=== PATIENT | female | born 1940 | race African-American/Black ===

== ENCOUNTER 2016-08-18 18:07 | Emergency (ER) | payer MEDICARE ==
--- NOTE | 2016-08-18 19:42 | ER Document Report ---
ED General - General Chief Complaint: Other Stated Complaint: BLEEDING Notes: Patient is a 75-year-old female with past medical history of chronic kidney disease with dialysis dependence who has a left AV fistula who presents with bleeding from the fistula. This started abruptly. States that this started just prior to arrival and has stopped after direct pressure was applied by EMS. Denies history of similar bleeding in the past. She did have dialysis earlier this morning. She does take aspirin but denies any additional anticoagulant use. Denies any pain. Nothing was noted to worsen the bleeding. TRAVEL OUTSIDE OF THE [place] IN LAST 30 DAYS: No Past Medical History - General Information source: Patient - Social History Smoking Status: Never Smoker Frequency of alcohol use: None Drug Abuse: None Lives with: Family Family History: Reviewed & Not Pertinent - Past Medical History Cardiac Medical History: Reports: Hx Hypercholesterolemia, Hx Hypertension Denies: Hx Coronary Artery Disease, Hx Heart Attack Pulmonary Medical History: Denies: Hx Asthma, Hx Bronchitis, Hx COPD, Hx Pneumonia, Hx Tuberculosis Neurological Medical History: Reports: Hx Cerebrovascular Accident - 2010. Denies: Hx Seizures Endocrine Medical History: Reports: Hx Diabetes Mellitus Type 2, Hx Hypothyroidism Renal/ Medical History: Reports: Hx End Stage Renal Disease Musculoskeltal Medical History: Reports Hx Arthritis Past Surgical History: Reports: Hx Cholecystectomy. Denies: Hx Pacemaker - Immunizations Hx Diphtheria, Pertussis, Tetanus Vaccination: No Hx Pneumococcal Vaccination: 04/19/12 Review of Systems - Review of Systems Notes: Constitutional: Negative for fever. HENT: Negative for sore throat. Eyes: Negative for visual changes. Cardiovascular: Negative for chest pain. Respiratory: Negative for shortness of breath. Gastrointestinal: Negative for abdominal pain, vomiting or diarrhea. Genitourinary: Negative for dysuria. Musculoskeletal: Negative for back pain. Skin: Positive for bleeding from left AV fistula Neurological: Negative for headaches, weakness or numbness. 10 point ROS negative except as marked above and in HPI. Physical Exam - Vital signs Vitals: Temp Pulse Resp BP Pulse Ox 97.7 F 67 18 165/59 H 100 08/18/16 18:23 08/18/16 18:23 08/18/16 18:23 08/18/16 18:23 08/18/16 18:23 Interpretation: Hypertensive Notes: PHYSICAL EXAMINATION: GENERAL: Well-appearing, well-nourished and in no acute distress. HEAD: Atraumatic, normocephalic. EYES: sclera anicteric, conjunctiva are normal. ENT: Moist mucous membranes. NECK: Normal range of motion LUNGS: Normal work of breathing HEART: 2+ radial pulses bilaterally EXTREMITIES: no pitting or edema. No cyanosis. Left AV fistula without any active bleeding. Palpable thrill. NEUROLOGICAL: No focal neurological deficits. Moves all extremities spontaneously and on command. PSYCH: Normal mood, normal affect. SKIN: Warm, Dry, normal turgor, no rashes or lesions noted. Course - Re-evaluation Re-evalutation: 08/18/16 19:42 Patient presents with a moderate amount of bleeding from her left AV fistula has stopped. Dressing removed at time of arrival diabetic place by EMS and there is no active bleeding. Vitals within normal limits exception of mild hypertension. Will check a hemoglobin and if this is within patient's normal range and for discharge home. 08/18/16 20:14 Hemoglobin is within patient's normal limits. She continues to be without any bleeding. At this time will discharge with return precautions and follow-up recommendations. Verbal discharge instructions given a the bedside and opportunity for questions given. Medication warnings reviewed. Patient is in agreement with this plan and has verbalized understanding of return precautions and the need for primary care follow-up in the next 24-72 hours. - Vital Signs Vital signs: Temp Pulse Resp BP Pulse Ox 98.2 F 67 24 H 154/57 H 99 08/18/16 20:54 08/18/16 18:23 08/18/16 20:53 08/18/16 20:54 08/18/16 20:53 - Laboratory Result Diagrams: 08/18/16 20:00 Laboratory results interpreted by me: 08/18/16 20:00 RBC 2.99 L Hgb 10.1 L Hct 30.6 L MCV 102 H MCH 33.6 H RDW 16.6 H Discharge - Discharge Clinical Impression: Hemorrhage of arteriovenous fistula Qualifiers: Encounter type: initial encounter Qualified Code(s): T82.838A - Hemorrhage due to vascular prosthetic devices, implants and grafts, initial encounter Condition: Good Disposition: HOME, SELF-CARE Additional Instructions: Please follow-up closely with your tele rn and the vascular surgeon who placed your fistula in the next 2-3 days. Return to the emergency department immediately if your recurrence of the bleeding, pass out, become lightheaded, or have any other symptoms that are concerning to you. Your blood counts today are similar to your prior levels. Forms: Elevated Blood Pressure
[2016-08-18 20:09] LABS: HEMATOCRIT 30.6 % (36.0-47.0); HEMOGLOBIN 10.1 g/dL (12.0-15.5); HGB HCT DIFFERENCE -0.3; MEAN CORPUSCULAR HEMOGLOBIN 33.6 pg (27.0-33.4); MEAN CORPUSCULAR HGB CONC 32.9 g/dL (32.0-36.0); MEAN CORPUSCULAR VOLUME 102 fl (80-97); RED BLOOD COUNT 2.99 10^6/uL (3.72-5.28); RED CELL DISTRIBUTION WIDTH 16.6 % (11.5-14.0); WHITE BLOOD COUNT 6.7 10^3/uL (4.0-10.5)
[2016-08-18 20:57] VITALS: BP 154/57
== END 2016-08-18 20:54 | disposition home or self-care (01) ==
LOC: ER 18:07
DX: T82.838A Hemorrhage due to vascular prosthetic devices, implants and grafts, initial encounter (principal); Y73.8 Miscellaneous gastroenterology and urology devices associated with adverse incidents, not elsewhere classified; I12.0 Hypertensive chronic kidney disease with stage 5 chronic kidney disease or end stage renal disease; E11.22 Type 2 diabetes mellitus with diabetic chronic kidney disease; N18.6 End stage renal disease; Z99.2 Dependence on renal dialysis; Z98.890 Other specified postprocedural states; Z79.82 Long term (current) use of aspirin; Z86.73 Personal history of transient ischemic attack (TIA), and cerebral infarction without residual deficits
CPT/HCPCS: 36415; 85027; 99284

== ENCOUNTER 2017-01-04 09:07 | Day surgery (SDC) | payer MEDICARE ==
[~2017-01-04 09:07] MED LIST: LIDOCAINE 0.5% INJ-PF (5 MG/ML) 50 ML SDV ONE
[2017-01-04 09:58] LABS: HEMATOCRIT 37.3 % (36.0-47.0); HEMOGLOBIN 12.3 g/dL (12.0-15.5); HGB HCT DIFFERENCE -0.4; MEAN CORPUSCULAR HGB CONC 32.9 g/dL (32.0-36.0); MEAN CORPUSCULAR VOLUME 103 fl (80-97); RED BLOOD COUNT 3.61 10^6/uL (3.72-5.28); WHITE BLOOD COUNT 3.6 10^3/uL (4.0-10.5)
[2017-01-04] MEDS ORDERED: PROPOFOL INJ 200 MG/20 ML VIAL IV ONE (10:01)
[2017-01-04] MEDS ORDERED: FENTANYL CITRATE INJ/PF 100 MCG/2 ML AMPUL ONE (10:01)
[2017-01-04] MEDS ORDERED: MIDAZOLAM 2 MG/2 ML INJ ONE (10:01)
[2017-01-04 10:21] LABS: ANION GAP 15 (5-19); BLOOD UREA NITROGEN 18 mg/dL (7-20); CALCIUM 9.1 mg/dL (8.4-10.2); CARBON DIOXIDE 29 mmol/L (22-30); CHLORIDE 96 mmol/L (98-107); CREATININE RESULT 7.38 mg/dL (0.52-1.25); GLUCOSE 86 mg/dL (75-110); POTASSIUM 5.1 mmol/L (3.6-5.0)
[2017-01-04] MEDS ORDERED: ONDANSETRON HCL INJ/PF 4 MG/2 ML SDV IV PRN (11:57)
[2017-01-04] MEDS ORDERED: DIPHENHYDRAMINE HCL 50 MG/ML VIAL IV PRN (11:57)
[2017-01-04] MEDS ORDERED: FENTANYL CITRATE INJ/PF 100 MCG/2 ML AMPUL IV PRN (11:57)
[2017-01-04] MEDS ORDERED: MEPERIDINE HCL/PF INJ 25 MG/1 ML DISP.SYRIN IV PRN (11:57)
[2017-01-04] MEDS ORDERED: PROMETHAZINE HCL INJ 25 MG/1 ML VIAL IV PRN (11:57)
--- NOTE | 2017-01-04 12:38 | PDOC DISCHARGE SUMMARY ---
Discharge Summary (SDC) - Discharge Final Diagnosis: 1 malfunctioning arteriovenous fistula, left transposed basilic. 2. End-stage renal disease on hemodialysis. 3. Hypertension. 4. Multiple comorbidities. Date of Surgery: 01/04/17 Discharge Date: 01/04/17 Condition: Fair Treatment or Instructions: Discharge home [after recovery per ASU criteria]. Diet , [renal],as tolerated, when fully awake advance as tolerated. Activities within moderation encouraged. Follow up in my office by appointment in about [1 month]. Call for appointment. Leave wounds [covered], [keep clean and dry, until hemodialysis. Hold of on school/work [until evaluation in office]. May shower [in 48 hrs], [try to keep operated area as dry as possible]. Discharge Diet: Other (Comments) - Renal Report the Following to Your Physician Immediately: Shortness of Breath, Unusual Bleeding
[2017-01-04 14:54] VITALS: BP 181/68
--- NOTE | 2017-01-04 15:22 | RADIOLOGY REPORT (SQ) ---
EXAM DESCRIPTION: SHOULDER LEFT 2 OR MORE VIEWS; NO CHG FLUORO COMPLETED DATE/TIME: 01/04/2017 2:02 pm REASON FOR STUDY: PLASTY T82.858A STENOSIS OF OTHER VASCULAR PROSTH DEV/GRFT, INIT COMPARISON: 06/15/2016 FLUOROSCOPY TIME: 3.7 minutes 16 series of digital images saved to PACS. TECHNIQUE: Intra-operative images acquired during surgical procedure to evaluate progress. NUMBER OF IMAGES: Cine fluoroscopic images. LIMITATIONS: None. FINDINGS: Imaging in fluoroscopy during left upper extremity dialysis access evaluation and plasty b y Dr. Gomez . Please refer to the operative report for further details. IMPRESSION: INTRA PROCEDURAL IMAGING ABOVE . COMMENT: Quality ID [id number]: Final reports for procedures using fluoroscopy that document radiation exp osure indices, or exposure time and number of fluorographic images (if radiation exposure indices are not available) Please consult full operative report of the attending physician for description of the procedure. TECHNICAL DOCUMENTATION: JOB ID: [id number] [employer]- All Rights Reserved
--- NOTE | 2017-01-04 23:43 | EKG REPORT ---
SEVERITY:- NORMAL ECG - SINUS RHYTHM : Confirmed by: Kindra Cai 04-Jan-2017 23:43:27
--- NOTE | 2017-01-19 13:19 | Operative Report ---
Operative Report DATE OF SURGERY: 01/04/17 PREOPERATIVE DIAGNOSIS: 1 malfunctioning arteriovenous fistula, left transposed basilic. 2. End-stage renal disease on hemodialysis. 3. Hypertension. 4. Multiple comorbidities. POSTOPERATIVE DIAGNOSIS: 1 malfunctioning arteriovenous fistula, left transposed basilic. 2. End-stage renal disease on hemodialysis. 3. Hypertension. 4. Multiple comorbidities. OPERATION: 1. Needle access into the fistula. 2. Central vein, subclavian angioplasty. 3. Arteriovenous fistula angioplasty. 4. Angiogram interpretation. SURGEON: OMKAR QUEVEDO SOFTWARE DATABASE ARCHITECT: None ANESTHESIA: LMAC TISSUE REMOVED OR ALTERED: Not applicable COMPLICATIONS: None ESTIMATED BLOOD LOSS: 5 mL. INTRAOPERATIVE FINDINGS: Well founded left arm transposed basilic vein fistula. Somewhat ectatic. Very firm initially suggestive of cephalad stenosis. 2 stenoses encountered one in the mid to lateral subclavian vein estimated to be 80% of the adjacent lumen. Also at about 30 cm at the swing segment. This was about 80% of the adjacent lumen and there remains a moderate 10-20% stenosis. The fistula is somewhat soft and suggestive of improvement in cephalad stenosis. In response to current intervention may need a larger balloon such as a 10 mm or, consideration of a stent. PROCEDURE: PROCEDURE: After verifying the procedure and having obtained informed consent, the patient's left arm was prepared with Chlorhexidine and draped out with sterile linen. Local anesthesia infiltrated. Percutaneous access into the fistula ,[ antegrade], obtained about [2 cm] from the arteriovenous anastomosis using a micro puncture needle followed by micro puncture wire and then a micro puncture catheter. Angiogram demonstrated the aforementioned findings. Angioplasty was elected. A 0.035 Bra[place]wood wire was inserted, and over this, a 7 Uzbek short introducer was placed, this was followed by a [8-mm ] angioplasty balloon . Angioplasty was done first in the subclavian vein inflating using a 3 mils syringe for 2 minutes. Subsequent inflation at the arteriovenous fistula site. Completion angiogram demonstrated inadequate resolution of the arteriovenous stenosis. A 9 mm angioplasty balloon was then inserted over the Glidewire and positioned in the culprit area. It was inflated using an insufflator up to 30 maximiliano for 2 minutes.]. Completion angiogram demonstrated [an acceptable result]. The instrumentation was now withdrawn over and pressure for 10 minutes with the measurements. Dressings applied, procedure concluded. Exposure time: 3.7 minutes Radiation: 9.45 mcg/cm Contrast: 45 mL of Isovue 300, low osmolality. DICTATING PHYSICIAN: OMKAR DUNN M.D. cc: OMKAR DUNN M.D. ([id number]) >>
== END 2017-01-04 14:50 | disposition home or self-care (01) ==
LOC: OROUT 09:07
PROVIDERS: ATTEND Surgery
PROC: 057C3DZ Dilation of Left Basilic Vein with Intraluminal Device, Percutaneous Approach (ICD-10-PCS; principal; 2017-01-04 12:00)
DX: T82.858A Stenosis of other vascular prosthetic devices, implants and grafts, initial encounter (principal); Y83.2 Surgical operation with anastomosis, bypass or graft as the cause of abnormal reaction of the patient, or of later complication, without mention of misadventure at the time of the procedure; E11.22 Type 2 diabetes mellitus with diabetic chronic kidney disease; I12.0 Hypertensive chronic kidney disease with stage 5 chronic kidney disease or end stage renal disease; N18.6 End stage renal disease; Z99.2 Dependence on renal dialysis; E03.9 Hypothyroidism, unspecified; K21.9 Gastro-esophageal reflux disease without esophagitis; Z79.899 Other long term (current) drug therapy; Z79.82 Long term (current) use of aspirin; Z79.02 Long term (current) use of antithrombotics/antiplatelets; I69.851 Hemiplegia and hemiparesis following other cerebrovascular disease affecting right dominant side
CPT/HCPCS: 36415; 85027; 80048; 73030; 93005; 93010; 36902; C1725; C1752; C1894; Q9967; C1769; J2250; J3010; J3490; J2704; J1644; 01844

== ENCOUNTER 2017-03-02 20:22 | Emergency (ER) | payer MEDICARE ==
[2017-03-03] MEDS ORDERED: ONDANSETRON 4 MG TAB.RAPDIS PO ONE (01:36)
[2017-03-03] MEDS ORDERED: OXYCODONE-ACETAMINOPHEN 5-325 MG TABLET PO ONE (01:36)
--- NOTE | 2017-03-03 02:31 | RADIOLOGY REPORT (SQ) ---
EXAM DESCRIPTION: CT CERVICAL SPINE WITHOUT COMPLETED DATE/TIME: 03/03/2017 2:09 am REASON FOR STUDY: pain, ? injury COMPARISON: None. TECHNIQUE: Axial images acquired through the cervical spine without intravenous contrast. Images re viewed with lung, soft tissue and bone windows. Reconstructed coronal and sagittal MPR images review ed. Images stored on PACS. All CT scanners at this facility use dose modulation, iterative reconstruction, and/or weight based d osing when appropriate to reduce radiation dose to as low as reasonably achievable (ALARA). [facility]: Dose Right [facility]: CareDose [facility]: Dose Right [facility]: Teradose 4D [facility]: [employer] RADIATION DOSE: Up-to-date CT equipment and radiation dose reduction techniques were employed. CTDIv ol: 11.4 mGy. DLP: 190 mGy-cm. mGy. LIMITATIONS: None. FINDINGS: ALIGNMENT: 0.2 cm C4 anterolisthesis. Moderate levo convexity. MINERALIZATION: Osteopenia. VERTEBRAL BODIES: No fractures or dislocation. Moderate anterior bridging osteophytes of the mid low er cervical spine. DISCS: Moderate disc desiccation between the C3 and T2 levels. FACETS, LATERAL MASSES, POSTERIOR ELEMENTS: [id number] spondylosis between the C2 and C7 levels . HARDWARE: None in the spine. VISUALIZED RIBS: No fractures. LUNG APICES AND SOFT TISSUES: No significant or acute findings. OTHER: No other significant finding. IMPRESSION: No acute findings. Moderate disc desiccation and spondylosis. TECHNICAL DOCUMENTATION: JOB ID: [id number] Quality ID # [id number]: Final reports with documentation of one or more dose reduction techniques (e.g., Au tomated exposure control, adjustment of the mA and/or kV according to patient size, use of iterative reconstruction technique) 2010 [employer]- All Rights Reserved
[2017-03-03] MEDS ORDERED: HYDROCODONE/ACETAMINOPHEN 5-325 MG 6 TAB/DSPK PO PRN (03:09)
--- NOTE | 2017-03-03 03:10 | ER Document Report ---
HPI - HPI Patient complains to provider of: neck pain Pain Level: 2 Context: Patient is a 76 year old female that comes to the ED for chief complaint of right sided neck and shoulder pain that began over the course of today. She denies injury, stiffness, fever, vomiting, dizziness, shortness of breath, chest pain. She denies history of the same. She is on dialysis, she is on schedule with this. Family at bedside. - REPRODUCTIVE LMP: NA Reproductive: DENIES: : - DERM Skin Color: Normal Past Medical History - General Information source: Patient - Social History Smoking Status: Never Smoker Frequency of alcohol use: None Drug Abuse: None Lives with: Family Family History: Reviewed & Not Pertinent Patient has suicidal ideation: No Patient has homicidal ideation: No - Past Medical History Cardiac Medical History: Reports: Hx Hypercholesterolemia, Hx Hypertension Denies: Hx Coronary Artery Disease, Hx Heart Attack Pulmonary Medical History: Denies: Hx Asthma, Hx Bronchitis, Hx COPD, Hx Pneumonia, Hx Tuberculosis Neurological Medical History: Reports: Hx Cerebrovascular Accident - 2009. Denies: Hx Seizures Endocrine Medical History: Reports: Hx Diabetes Mellitus Type 2, Hx Hypothyroidism Renal/ Medical History: Reports: Hx End Stage Renal Disease. Denies: Hx Peritoneal Dialysis - HD Musculoskeltal Medical History: Reports Hx Arthritis Past Surgical History: Reports: Hx Cholecystectomy. Denies: Hx Pacemaker - Immunizations Hx Diphtheria, Pertussis, Tetanus Vaccination: No Hx Pneumococcal Vaccination: 04/19/12 Vertical Provider Document - CONSTITUTIONAL General Appearance: WD/WN, Other - Patient does not appear to be in distress unless she tries to move with position changes or turning her head side to side. With these she grimaces in pain - INFECTION CONTROL TRAVEL OUTSIDE OF THE [place] IN LAST 30 DAYS: No - HEENT HEENT: Atraumatic, Normal ENT Exam, Normocephalic - NECK Neck: Other - No nuchal rigidity, normal extension and flexion, patient has very difficult time turning her head laterally, significant tenderness over the left paracervical musculature area. Anterior neck unremarkable. - RESPIRATORY Respiratory: Breath Sounds Normal, No Respiratory Distress - CARDIOVASCULAR Cardiovascular: Regular Rate, Regular Rhythm - GI/ABDOMEN Gastrointestinal: Abdomen Soft, Abdomen Non-Tender - MUSCULOSKELETAL/EXTREMETIES Musculoskeletal/Extremeties: MAEW, FROM, Non-Tender - NEURO Level of Consciousness: Awake, Alert, Appropriate Motor/Sensory: No Motor Deficit, No Sensory Deficit - DERM Integumentary: Warm, Dry, No Rash Course - Re-evaluation Re-evalutation: No overt midline tenderness, no heat or swelling to the area, no reported injury , patient neurologically intact. She does have a very tender neck on the right side, mainly in the paracervical muscles. CAT scan imaging with no acute abnormalities, shows degenerative changes. Low suspicion of meningitis, vertebral dissection, or other emergent abnormality based on her examination. Patient was given a dose of pain medication, afterwards she was comfortable, smiling, slept. Still reports some tightness to the area. Patient has a very close follow-up with her primary care provider already planned, providing with medication for treatment, instructions, discussed in detail with patient and family, they state understanding and agreement. - Diagnostic Test Radiology reviewed: Image reviewed, Reports reviewed Discharge - Discharge Clinical Impression: Neck pain Condition: Stable Disposition: HOME, SELF-CARE Additional Instructions: CAT scan shows arthritis but no obvious concerning abnormality. Examination does not show any concerning findings, appears to show muscle spasm in your neck. Take the pain medication given if needed, apply heat to the area, follow- up closely with your provider for additional management. If you take the pain medicine, also take colace given to avoid constipation. Return to emergency department for any concerning symptoms including headache, numbness, fever, vomiting, or any other concerning symptoms. Prescriptions: Docusate Sodium [Colace 100 mg Capsule] 100 mg PO DAILY #30 capsule Hydrocodone/Acetaminophen [[place] 5-325 mg Tablet] 1 tab PO ASDIR #10 tablet Referrals: JOSE MANUEL MIX MD [Primary Care Provider] - Follow up as needed
[2017-03-03 03:36] VITALS: BP 165/51
== END 2017-03-03 03:34 | disposition home or self-care (01) ==
LOC: ER 20:22
DX: M54.2 Cervicalgia (principal); M25.511 Pain in right shoulder; I12.0 Hypertensive chronic kidney disease with stage 5 chronic kidney disease or end stage renal disease; E11.22 Type 2 diabetes mellitus with diabetic chronic kidney disease; N18.6 End stage renal disease; Z99.2 Dependence on renal dialysis; Z86.73 Personal history of transient ischemic attack (TIA), and cerebral infarction without residual deficits
CPT/HCPCS: 99283; 72125; A9270 ×3; S0119

== ENCOUNTER 2017-03-24 21:51 | Emergency (ER) | payer MEDICARE ==
[2017-03-24] MEDS ORDERED: NITROGLYCERIN 2% OINTMENT 1 GM PACKET TP ONE (22:10)
--- NOTE | 2017-03-24 22:10 | ER Document Report ---
ED General - General Chief Complaint: Chest Pain Stated Complaint: CHEST PAIN Time Seen by Provider: 03/24/17 22:01 Notes: Patient is a 76-year-old female who presents with complaint of chest pain. Chest pain is substernal. Chest pain started when she was resting. She called the ambulance. She received aspirin as well as a sublingual nitro. She says since the sublingual nitro she is feeling much improved. She says she now just has very mild chest pain. She denies any difficulty breathing at this time. She is a dialysis patient is due for dialysis tomorrow. Her community education coordinator is Dr. Cruz Mendez. She denies any recent fevers or infections. She has no other complaints at this time. Patient denies previous history of AK or coronary disease. TRAVEL OUTSIDE OF THE [place] IN LAST 30 DAYS: No - Related Data Allergies/Adverse Reactions: No Known Allergies Allergy (Verified 03/02/17 21:13) Past Medical History - Social History Smoking Status: Unknown if Ever Smoked Frequency of alcohol use: None Drug Abuse: None Family History: Reviewed & Not Pertinent - Past Medical History Cardiac Medical History: Reports: Hx Hypercholesterolemia, Hx Hypertension Denies: Hx Coronary Artery Disease, Hx Heart Attack Pulmonary Medical History: Denies: Hx Asthma, Hx Bronchitis, Hx COPD, Hx Pneumonia, Hx Tuberculosis Neurological Medical History: Reports: Hx Cerebrovascular Accident - 2010. Denies: Hx Seizures Endocrine Medical History: Reports: Hx Diabetes Mellitus Type 2, Hx Hypothyroidism Renal/ Medical History: Reports: Hx End Stage Renal Disease. Denies: Hx Peritoneal Dialysis - HD Musculoskeltal Medical History: Reports Hx Arthritis Past Surgical History: Reports: Hx Cholecystectomy. Denies: Hx Pacemaker - Immunizations Hx Diphtheria, Pertussis, Tetanus Vaccination: No Hx Pneumococcal Vaccination: 04/19/12 Review of Systems - Review of Systems Notes: My Normal Review Basic REVIEW OF SYSTEMS: CONSTITUTIONAL : Denies fever, chills, or sweats. Denies recent illness. EENT: Denies eye, ear, throat, or mouth pain or symptoms. Denies nasal or sinus congestion. CARDIOVASCULAR: Has chest pain RESPIRATORY: Denies cough, cold, or chest congestion. Denies shortness of breath, difficulty breathing, or wheezing. GASTROINTESTINAL: Denies abdominal pain. Denies nausea, vomiting, or diarrhea. Denies constipation. Last BM: MUSCULOSKELETAL: Denies neck or back pain or joint pain or swelling. SKIN: Denies rash or skin lesions. NEUROLOGICAL: Denies altered mental status or loss of consciousness. Denies headache. Denies weakness or paralysis or loss of use of either side. Denies problems with gait or speech. Denies sensory or motor loss. ALL OTHER SYSTEMS REVIEWED AND NEGATIVE. Physical Exam - Vital signs Vitals: Resp Pulse Ox 19 93 03/24/17 21:59 03/24/17 21:59 - Notes Notes: General Appearance: Well nourished, alert, cooperative, no acute distress, mild obvious discomfort. Vitals: reviewed, See vital signs table. Head: no swelling or tenderness to the head Eyes: PERRL, EOMI, Conjuctiva clear Mouth: No decreasd moisture Lungs: No wheezing, No rales, No rhonci, No accessory muscle use, good air exchange bilaterally. Heart: Normal rate, Regular rythm, No murmur, no rub Abdomen: Normal BS, soft, No rigidity, No abdominal tenderness, No guarding, no rebound, no abdominal masses, no organomegaly Extremities: strength 5/5 in all extremities, good pulses in all extremities, no swelling or tenderness in the extremities, no edema. Skin: warm, dry, appropriate color, no rash Neuro: speech clear, oriented x 3, normal affect, responds appropriately to questions. Course - Re-evaluation Re-evalutation: 03/25/17 00:52 Patient's chest pain is resolved and she says she feels very well. I informed her that her troponin is elevated. I told her that we need to repeat her troponin to see if it is staying steady which would suggest that this is more of a reflection of her renal function or to see if it is rising which would indicate that she is having an NSTEMI needs transfer. Patient is understanding of the plan. 03/25/17 03:[address] did speak with Dr. Dominguez, hospitalist at [facility], who agrees to accept the patient for transfer. She does not recommend any anticoagulation at this time other than aspirin. Patient continues to be chest pain-free. Dictation of this chart was performed using voice recognition software; therefore, there may be some unintended grammatical errors. 03/25/17 05:57 03/25/17 05:58 Patient's blood pressure is much improved. I did want to lower her blood pressure to help take strain off her heart being that she appears to be having an non-STEMI. Her blood pressures much improved after 1 dose of hydralazine. She is resting comfortably without pain. She is still medically stable for transfer. Dictation of this chart was performed using voice recognition software; therefore, there may be some unintended grammatical errors. - Vital Signs Vital signs: Temp Pulse Resp BP Pulse Ox 98.1 F 25 H 183/70 H 97 03/24/17 22:07 03/25/17 04:26 03/25/17 04:26 03/25/17 04:26 - Laboratory Result Diagrams: 03/24/17 23:24 03/24/17 23:24 Laboratory results interpreted by me: 03/24/17 03/24/17 23:24 23:24 RBC 3.51 L MCV 103 H MCH 34.7 H RDW 15.6 H BUN 21 H Creatinine 9.98 H Est GFR ( Amer) 5 L Est GFR (Non-Af Amer) 4 L Glucose 114 H Direct Bilirubin 0.6 H - EKG Interpretation by Me Additional EKG results interpreted by me: 03/24/17 22:06 EKG is reviewed and interpreted by me. EKG shows sinus rhythm with a rate of 54 bpm. Patient has very mild ST segment elevation in lead V2. She has no reciprocal ST segment depression. She does have some scattered concave up ST segment elevation in the lateral precordial leads. This is not consistent with a ST elevation AK. UT interval, QRS duration, QTc intervals are within normal range. Old EKG for comparison is from January 04, 2017. 03/25/17 05:56 EKG #2 is reviewed and interpreted by me. EKG shows sinus rhythm rate 64 bpm. Patient continues to have the concave up ST segment elevations without any reciprocal ST segment depressions. UT interval is within normal range. QRS duration and QTc intervals or prolonged. Discharge - Discharge Clinical Impression: NSTEMI (non-ST elevated myocardial infarction), ESRD (end stage renal disease) Condition: Stable Disposition: [facility] Referrals: JOSE MANUEL MIX MD [Primary Care Provider] - Follow up as needed
--- NOTE | 2017-03-24 22:43 | RADIOLOGY REPORT (SQ) ---
EXAM DESCRIPTION: CHEST SINGLE VIEW COMPLETED DATE/TIME: 03/24/2017 10:34 pm REASON FOR STUDY: CP COMPARISON: 06/15/2016 EXAM PARAMETERS: NUMBER OF VIEWS: One view. TECHNIQUE: Single frontal radiographic view of the chest acquired. RADIATION DOSE: NA LIMITATIONS: None. FINDINGS: LUNGS AND PLEURA: There is a small left effusion. This is grossly stable from June 29. No consolidation. MEDIASTINUM AND HILAR STRUCTURES: No masses. Contour normal. HEART AND VASCULAR STRUCTURES: The heart is enlarged. No failure. BONES: No acute findings. HARDWARE: None in the chest. OTHER: No other significant finding. IMPRESSION: Cardiomegaly. Small left pleural effusion. There has been no significant change from 2015. TECHNICAL DOCUMENTATION: JOB ID: [id number]
--- NOTE | 2017-03-24 22:44 | EKG REPORT ---
SEVERITY:- ABNORMAL ECG - SINUS RHYTHM CONSIDER LEFT VENTRICULAR HYPERTROPHY BORDERLINE ST ELEVATION, ANTEROLATERAL LEADS : Confirmed by: Kindra Cai 24-Mar-2017 22:44:04
[2017-03-24 23:42] LABS: HEMOGLOBIN 12.2 g/dL (12.0-15.5); HGB HCT DIFFERENCE 0.6; MEAN CORPUSCULAR HEMOGLOBIN 34.7 pg (27.0-33.4); MEAN CORPUSCULAR HGB CONC 33.8 g/dL (32.0-36.0); MEAN CORPUSCULAR VOLUME 103 fl (80-97); RED BLOOD COUNT 3.51 10^6/uL (3.72-5.28); RED CELL DISTRIBUTION WIDTH 15.6 % (11.5-14.0); WHITE BLOOD COUNT 6.4 10^3/uL (4.0-10.5)
[2017-03-24 23:51] LABS: ALANINE AMINOTRANSFERASE 11 U/L (9-52); ALBUMIN 4.5 g/dL (3.5-5.0); ALKALINE PHOSPHATASE 82 U/L (38-126); ANION GAP 17 (5-19); ASPARTATE AMINO TRANSFERASE 20 U/L (14-36); BILIRUBIN,DIRECT 0.6 mg/dL (0.0-0.4); BILIRUBIN,TOTAL 0.6 mg/dL (0.2-1.3); BLOOD UREA NITROGEN 21 mg/dL (7-20); CALCIUM 10.2 mg/dL (8.4-10.2); CARBON DIOXIDE 25 mmol/L (22-30); CHLORIDE 100 mmol/L (98-107); CREATINE KINASE 58 U/L (30-135); CREATININE RESULT 9.98 mg/dL (0.52-1.25); GLUCOSE 114 mg/dL (75-110); POTASSIUM 4.6 mmol/L (3.6-5.0); SODIUM 141.9 mmol/L (137-145); TOTAL PROTEIN 7.3 g/dL (6.3-8.2)
[2017-03-25 00:02] LABS: CREATINE KINASE MB 1.07 ng/mL (<4.55)
[2017-03-25 00:05] LABS: TROPONIN I 0.113 ng/mL
[2017-03-25 00:17] LABS: BASOPHILS % (MANUAL) 0 % (0-2); EOSINOPHILS % (MANUAL) 2 % (0-6); LYMPHOCYTES % (MANUAL) 26 % (13-45); TOTAL CELLS COUNTED 100
[2017-03-25 00:18] LABS: ANISOCYTOSIS SLIGHT; BURR CELLS SLIGHT; OVALOCYTES SLIGHT; POIKILOCYTOSIS SLIGHT; POLYCHROMASIA SLIGHT; TOXIC GRANULATION SLIGHT
[2017-03-25] MEDS ORDERED: HYDRALAZINE HCL INJ/PF 20 MG/1 ML SDV IV ONE ×2 (04:01→15:31)
--- NOTE | 2017-03-25 08:05 | EKG REPORT ---
SEVERITY:- ABNORMAL ECG - SINUS RHYTHM ATRIAL PREMATURE COMPLEX NONSPECIFIC INTRAVENTRICULAR CONDUCTION DELAY : Confirmed by: Kindra Cai 25-Mar-2017 08:04:45
--- NOTE | 2017-03-25 09:42 | ER Document Report ---
Doctor's Note Notes: 03/25/17 09:41 Patient coming in for evaluation chest pain. Last troponin has trended up to 2.5. We did contact the transfer team patient evaluated remains stable states no chest pain. Will defer to a sitting facility for further management or anticoagulation therapy.
[2017-03-25] MEDS ORDERED: HEPARIN SOD (PORCINE) 1,000 UNIT/ML 10 ML VIAL IV ONE (10:02)
[2017-03-25] MEDS ORDERED: HEPARIN SOD (PORCINE) 1,000 UNIT/ML 10 ML VIAL IV PRN (10:02)
[2017-03-25] MEDS ORDERED: HEPARIN SODIUM,PORCINE/D5W 25,000 UNIT/250 ML RTUINJ IV PRN (10:02)
[2017-03-25 11:25] LABS: ABSOLUTE EOSINOPHILS # (AUTO) 0.1 10^3/uL (0.0-0.6); ABSOLUTE LYMPHOCYTES (AUTO) 1.2 10^3/uL (0.5-4.7); ABSOLUTE MONOCYTES (AUTO) 0.5 10^3/uL (0.1-1.4); ABSOLUTE NEUT (AUTO) 3.9 10^3/uL (1.7-8.2); BASOPHILS % (AUTO) 0.8 % (0-2); EOSINOPHILS % (AUTO) 1.7 % (0-6); HEMATOCRIT 37.6 % (36.0-47.0); HEMOGLOBIN 12.6 g/dL (12.0-15.5); HGB HCT DIFFERENCE 0.2; LYMPHOCYTES % (AUTO) 20.2 % (13-45); MEAN CORPUSCULAR HEMOGLOBIN 34.1 pg (27.0-33.4); MEAN CORPUSCULAR HGB CONC 33.6 g/dL (32.0-36.0); MEAN CORPUSCULAR VOLUME 102 fl (80-97); MONOCYTES % (AUTO) 8.9 % (3-13); RED CELL DISTRIBUTION WIDTH 15.7 % (11.5-14.0); SEGMENTED NEUTROPHILS % (AUTO) 68.4 % (42-78); WHITE BLOOD COUNT 5.7 10^3/uL (4.0-10.5)
[2017-03-25 11:35] LABS: ANION GAP 19 (5-19); BLOOD UREA NITROGEN 22 mg/dL (7-20); CALCIUM 10.2 mg/dL (8.4-10.2); CARBON DIOXIDE 25 mmol/L (22-30); CHLORIDE 97 mmol/L (98-107); CREATININE RESULT 10.95 mg/dL (0.52-1.25); GLUCOSE 137 mg/dL (75-110); POTASSIUM 4.8 mmol/L (3.6-5.0)
[2017-03-25] MEDS ORDERED: METOPROLOL TARTRATE 25 MG TABLET PO ONE (13:22)
[2017-03-25 13:53] LABS: PARTIAL THROMBOPLASTIN TIME > 235.0 SEC (23.5-35.8)
[2017-03-25 16:04] VITALS: BP 158/104
--- NOTE | 2017-03-25 17:25 | EKG REPORT ---
SEVERITY:- ABNORMAL ECG - SINUS RHYTHM PROBABLE LEFT ATRIAL ABNORMALITY PROBABLE LEFT VENTRICULAR HYPERTROPHY T WAVE ABNORMALITYLATERAL CHEST LEADS, LVH VS ISCHEMIA : Confirmed by: Kindra Cai 25-Mar-2017 17:25:05
--- NOTE | 2017-03-25 17:26 | EKG REPORT ---
SEVERITY:- ABNORMAL ECG - SINUS RHYTHM PROBABLE LEFT ATRIAL ABNORMALITY LEFT VENTRICULAR HYPERTROPHY T ABNORMALITIES, LATERAL LEADS ISCHEMIA VS LVH : Confirmed by: Kindra Cai 25-Mar-2017 17:25:48
== END 2017-03-25 16:24 | disposition short-term general hospital (02) ==
LOC: ER 21:51
DX: I21.4 Non-ST elevation (NSTEMI) myocardial infarction (principal); R07.9 Chest pain, unspecified; E11.22 Type 2 diabetes mellitus with diabetic chronic kidney disease; I12.0 Hypertensive chronic kidney disease with stage 5 chronic kidney disease or end stage renal disease; N18.6 End stage renal disease; Z99.2 Dependence on renal dialysis; E78.00 Pure hypercholesterolemia, unspecified; Z86.73 Personal history of transient ischemic attack (TIA), and cerebral infarction without residual deficits; E03.9 Hypothyroidism, unspecified; Z90.49 Acquired absence of other specified parts of digestive tract
CPT/HCPCS: 93005 ×2; 96376; 99285; 96375; 96365; 96366; 36415; 82553; 82962; 82550; 85025; 85610; 85730; 80048; 80053; 84484; 71010; 93010 ×2; J1644 ×2; A9270 ×2; J0360

== ENCOUNTER 2017-08-23 09:47 | Day surgery (SDC) | payer MEDICARE ==
[~2017-08-23 09:47] MED LIST changes: +DIAZEPAM 5 MG TABLET PO PRN; -LIDOCAINE 0.5% INJ-PF (5 MG/ML) 50 ML SDV ONE; +OXYCODONE-ACETAMINOPHEN 5-325 MG TABLET PO PRN
[2017-08-23 10:25] LABS: HEMATOCRIT 34.3 % (36.0-47.0); HEMOGLOBIN 11.5 g/dL (12.0-15.5); MEAN CORPUSCULAR HEMOGLOBIN 33.6 pg (27.0-33.4); MEAN CORPUSCULAR HGB CONC 33.4 g/dL (32.0-36.0); MEAN CORPUSCULAR VOLUME 101 fl (80-97); PLATELET COUNT 187 10^3/uL (150-450); RED BLOOD COUNT 3.41 10^6/uL (3.72-5.28); RED CELL DISTRIBUTION WIDTH 15.8 % (11.5-14.0); WHITE BLOOD COUNT 3.8 10^3/uL (4.0-10.5)
[2017-08-23 10:40] LABS: ANION GAP 9 (5-19); BLOOD UREA NITROGEN 16 mg/dL (7-20); CALCIUM 8.8 mg/dL (8.4-10.2); CARBON DIOXIDE 33 mmol/L (22-30); CHLORIDE 98 mmol/L (98-107); GLUCOSE 93 mg/dL (75-110); POTASSIUM 3.5 mmol/L (3.6-5.0); SODIUM 139.9 mmol/L (137-145)
[2017-08-23] MEDS ORDERED: DIAZEPAM 5 MG TABLET ONE (10:49)
[2017-08-23] MEDS ORDERED: OXYCODONE-ACETAMINOPHEN 5-325 MG TABLET ONE (10:49)
[2017-08-23] MEDS ORDERED: LIDOCAINE 0.5% INJ-PF (5 MG/ML) 50 ML SDV ONE (11:18)
[2017-08-23] MEDS ORDERED: FENTANYL CITRATE INJ/PF 100 MCG/2 ML AMPUL ONE (11:18)
[2017-08-23] MEDS ORDERED: MIDAZOLAM 2 MG/2 ML INJ ONE (11:18)
[2017-08-23] MEDS ORDERED: HEPARIN SOD (PORCINE) 5,000 UNIT/ML 1 ML SYRINGE ONE (11:18)
--- NOTE | 2017-08-23 12:57 | PDOC DISCHARGE SUMMARY ---
Discharge Summary (SDC) - Discharge Final Diagnosis: #1 malfunctioning AV fistula left arm. 2. End-stage renal disease. 3. Multiple comorbidities. Date of Surgery: 08/23/17 Discharge Date: 08/23/17 Condition: Fair Treatment or Instructions: Discharge home [after recovery per ASU criteria]. Diet , [renal],as tolerated, when fully awake advance as tolerated. Activities within moderation encouraged. Follow up in my office by appointment in about 1 month. Call for appointment. Leave wounds [covered], [keep clean and dry, until hemodialysis]. Meds per med rec. May shower [in 48 hrs], [try to keep operated area as dry as possible]. Referrals: JOSE MANUEL MIX MD [Primary Care Provider] - Discharge Diet: Other (Comments) - Renal. Respiratory Treatments at Home: Deep Breathing/Coughing Discharge Activity: Activity As Tolerated Report the Following to Your Physician Immediately: Shortness of Breath, Unusual Bleeding
--- NOTE | 2017-08-23 13:00 | Operative Report ---
Operative Report DATE OF SURGERY: 08/23/17 PREOPERATIVE DIAGNOSIS: #1 malfunctioning AV fistula left arm. 2. End-stage renal disease. 3. Multiple comorbidities. POSTOPERATIVE DIAGNOSIS: #1 malfunctioning AV fistula left arm. 2. End-stage renal disease. 3. Multiple comorbidities. OPERATION: 1. Needle access into fistula. 2. Multiple angioplasty AV fistula. 3. Angiogram and interpretation. SURGEON: OMKAR Cuenca . 1ST SURVEILLANCE CAMERA TECHNICIAN: None. ANESTHESIA: Moderate Sedation TISSUE REMOVED OR ALTERED: Not applicable. COMPLICATIONS: None. ESTIMATED BLOOD LOSS: 2 mL. INTRAOPERATIVE FINDINGS: Of a well founded left arm transposed basilic vein fistula. Multiple short areas of stenosis noted most prominently at 20 cm. Estimated 70% narrowing resolved with angioplasty using an 8 mm angioplasty balloon. Infusion 9 mm angioplasty balloon may be needed. PROCEDURE: PROCEDURE: After verifying the procedure and having obtained informed consent, the patient's left arm was prepared with Chlorhexidine and draped out with sterile linen. Local anesthesia infiltrated. Percutaneous access into the fistula ,[ antegrade], obtained about [2 cm] from the arteriovenous anastomosis using a micro puncture needle followed by micro puncture wire and then a micro puncture catheter. Angiogram demonstrated the aforementioned findings. Angioplasty was elected. A 0.035 [place] wire was inserted, and over this, a 7 Green[place]ic short introducer was placed, this was followed by a [8-mm ] angioplasty balloon . Angioplasty was serially done from the upper fistula down to the introducer. Inflating using a 3 mils balloon for a minute 2 minutes, at a time.]. Completion angiogram demonstrated [satisfactory result]. The instrumentation was now withdrawn over hand pressure for 10 minutes. Dressings applied, procedure concluded. Exposure time: 1.1 minutes. Radiation: 1.72 Yanci gonzales. Contrast: 50 mils of Isovue-300, low osmolality. DICTATING PHYSICIAN: OMKAR DUNN M.D. cc: OMKAR DUNN M.D. ([id number]) >>
--- NOTE | 2017-08-23 13:02 | RADIOLOGY REPORT (SQ) ---
EXAM DESCRIPTION: FISTULAGRAM W/PLASTY COMPLETED DATE/TIME: 08/23/2017 12:28 pm REASON FOR STUDY: T82.858A T82.858A STENOSIS OF OTHER VASCULAR PROSTH DEV/GRFT, INIT COMPARISON: None. FLUOROSCOPY TIME: 0.8 minutes. 21 images saved to PACS. TECHNIQUE: Intra-operative images acquired during surgical procedure to evaluate progress. NUMBER OF IMAGES: 21 images. LIMITATIONS: None. FINDINGS: Imaging in fluoroscopy during left upper extremity dialysis access evaluation and plasty b y Dr. Gomez . Please refer to the operative report for further details. IMPRESSION: INTRA PROCEDURAL IMAGING ABOVE . COMMENT: Quality ID [id number]: Final reports for procedures using fluoroscopy that document radiation exp osure indices, or exposure time and number of fluorographic images (if radiation exposure indices are not available) Please consult full operative report of the attending physician for description of the procedure. TECHNICAL DOCUMENTATION: JOB ID: [id number] [employer]- All Rights Reserved
[2017-08-23 13:52] VITALS: BP 160/69
== END 2017-08-23 13:45 | disposition home or self-care (01) ==
LOC: CCL 09:47
PROVIDERS: ATTEND Surgery
PROC: 057C3DZ Dilation of Left Basilic Vein with Intraluminal Device, Percutaneous Approach (ICD-10-PCS; principal; 2017-08-23)
DX: T82.858A Stenosis of other vascular prosthetic devices, implants and grafts, initial encounter (principal); Y83.2 Surgical operation with anastomosis, bypass or graft as the cause of abnormal reaction of the patient, or of later complication, without mention of misadventure at the time of the procedure; I12.0 Hypertensive chronic kidney disease with stage 5 chronic kidney disease or end stage renal disease; E11.22 Type 2 diabetes mellitus with diabetic chronic kidney disease; N18.6 End stage renal disease; Z95.5 Presence of coronary angioplasty implant and graft; Z91.81 History of falling; M19.90 Unspecified osteoarthritis, unspecified site; K21.9 Gastro-esophageal reflux disease without esophagitis; E03.9 Hypothyroidism, unspecified; I25.2 Old myocardial infarction; E78.5 Hyperlipidemia, unspecified; Z79.82 Long term (current) use of aspirin; Z79.899 Other long term (current) drug therapy
CPT/HCPCS: 36415; 85027; 80048; 36907; 36902; C1725; C1752; C1894; C1769; J2250; J1644 ×2; A9270 ×2; J3010; J3490

== ENCOUNTER 2017-09-10 04:57 | Inpatient (IN) | payer MEDICARE ==
--- NOTE | 2017-09-10 05:32 | ER Document Report ---
ED General - General TRAVEL OUTSIDE OF THE [place] IN LAST 30 DAYS: No <HERMINIO MAYER - Last Filed: 09/10/17 08:06> <DANIA MARTINEZ - Last Filed: 09/10/17 09:46> - General Chief Complaint: Abdominal Pain Stated Complaint: ABDOMINAL PAIN Time Seen by Provider: 09/10/17 05:16 - HPI Notes: Patient is a 76-year-old female with a history of hypercholesterolemia, hypothyroidism, end-stage renal disease on dialysis every Tuesday, Tuesday, and Tuesday who presents to the ED complaining of "something not feeling right" in her left upper abdomen x 1-2 weeks. Patient states that she has trouble sitting up in her recliner bc of occ discomfort, but she cannot specify beyond that. Pt states that it is not pain that she feels. Patient is still eating and drinking without any difficulties or worsening symptoms. She is still having normal bowel movements. Patient denies any other recent illness. Patient did perform a full session of dialysis yesterday without any difficulties. Denies any headache, fever, neck pain, URI, sore throat, chest pain, palpitations, syncope, cough, shortness of breath, wheeze, dyspnea, nausea /vomiting/diarrhea, urinary retention, dysuria, hematuria, back pain, loss of control of bowel, numbness/tingling, saddle anesthesia, muscle paralysis/ weakness, or rash. (HERMINIO MAYER) - Related Data Allergies/Adverse Reactions: adhesive tape Allergy (Intermediate, Verified 08/23/17 10:21) Generalized rash Past Medical History - Social History Smoking Status: Never Smoker Family History: Reviewed & Not Pertinent Patient has suicidal ideation: No Patient has homicidal ideation: No - Past Medical History Cardiac Medical History: Reports: Hx Heart Attack - 2017, Hx Hypercholesterolemia, Hx Hypertension Denies: Hx Coronary Artery Disease Pulmonary Medical History: Denies: Hx Asthma, Hx Bronchitis, Hx COPD, Hx Pneumonia, Hx Tuberculosis Neurological Medical History: Reports: Hx Cerebrovascular Accident - 2010. Denies: Hx Seizures Endocrine Medical History: Reports: Hx Diabetes Mellitus Type 2, Hx Hypothyroidism Renal/ Medical History: Reports: Hx End Stage Renal Disease. Denies: Hx Peritoneal Dialysis Musculoskeltal Medical History: Reports Hx Arthritis Past Surgical History: Reports: Hx Cholecystectomy. Denies: Hx Pacemaker - Immunizations Hx Diphtheria, Pertussis, Tetanus Vaccination: No Hx Pneumococcal Vaccination: 04/19/12 <HERMINIO MAYER - Last Filed: 09/10/17 08:06> Review of Systems - Review of Systems -: Yes All other systems reviewed and negative <HERMINIO MAYER - Last Filed: 09/10/17 08:06> Physical Exam <HERMINIO MAYER - Last Filed: 09/10/17 08:06> <DANIA MARTINEZ - Last Filed: 09/10/17 09:46> - Vital signs Vitals: Temp Pulse Resp BP Pulse Ox 97.4 F 58 L 18 134/60 H 99 09/10/17 05:13 09/10/17 05:13 09/10/17 05:13 09/10/17 05:13 09/10/17 05:13 - Notes Notes: PHYSICAL EXAMINATION: GENERAL: Well-appearing, well-nourished and in no acute distress. A&Ox4. HEAD: Atraumatic, normocephalic. EYES: conjunctiva are normal. ENT: Nares patent and without discharge. oropharynx clear without exudates. No tonsilar hypertrophy or erythema. Moist mucous membranes. NECK: Normal range of motion, supple without lymphadenopathy LUNGS: dec breath sounds left lower lung. No wheezes rales or rhonchi. HEART: Regular rate and rhythm without murmurs, rubs, gallops. ABDOMEN: Soft, nontender, nondistended abdomen. No guarding, no rebound. No masses appreciated. Normal bowel sounds present. No CVA tenderness bilaterally. + small reducible umbilical hernia noted. No erythema. Musculoskeletal: FROM to passive/active. Strength 5+/5. Extremities: 1-2+ pitting edema LE's b/l. Peripheral pulses 2+. Capillary refill less than 3 seconds. NEUROLOGICAL: Normal speech. Normal sensory, motor exams PSYCH: Normal mood, normal affect. SKIN: Warm, Dry, normal turgor, no rashes or lesions noted. (HERMINIO MAYER) Course - Laboratory Result Diagrams: 09/10/17 05:34 09/10/17 06:36 <HERMINIO MAYER - Last Filed: 09/10/17 08:06> - Laboratory Result Diagrams: 09/10/17 05:34 09/10/17 06:36 - Diagnostic Test Radiology reviewed: Image reviewed, Reports reviewed - EXAM DESCRIPTION: CHEST PA/LAT CLINICAL HISTORY: 76 years, Female, epigastric discomfort COMPARISON: 9.14.17 NUMBER OF VIEWS: 2 LIMITATIONS: None. FINDINGS: Moderate opacity in the left lower hemithorax, mild interstitial markings, moderately enlarged cardiac silhouette, atherosclerosis, and clips of the proximal left upper arm. Intact bony thorax. IMPRESSION: 1. Interval worsening includes moderate opacity of the left lower hemithorax which may indicate pneumonia or effusion. Recommend CR/CT surveillance including at 7-12 weeks following initiation of clinically warranted therapy. 2. Chronic moderate cardiac enlargement. Dictated by: TONY DENSON MD [id number] CC: HERMINIO MAYER PA-C - Consults DIANA Time consulted: 07:30 - Paged thru embossograph operator by herminio mayer <DANIA MARTINEZ - Last Filed: 09/10/17 09:46> - Re-evaluation Re-evalutation: 09/10/17 07:30 Patient is an afebrile, well-hydrated, 76-year-old female who presents to the ED with an opacity in the left lower lung field. Vitals are stable. PE also showed 1-2+ pitting edema. CBC and CMP are unremarkable for any acute pathology. Patient's BNP was 8750, but the most recent previous was in [address] Spears also reviewed the chest x-ray and believes that it is more of an effusion than pneumonia. This is reaffirmed with no white count, fever, and no cough. Patient is tolerating p.o. without any difficulties. We will work on an admission for this patient. Dr. Adame is her primary, but Dr. Hernandez is covering at this time. I did review with Dr. Hernandez who states that she can go to [facility] as long as her conventions reservationist, Dr. Mendez, is on board for consult. I am currently waiting for a call back from Dr. Mendez. 09/10/17 08:06 Dr. mendez still has not called back. He was paged twice. Care transferred to Araseli Martinez at this time to coordinate admission. (HERMINIO MAYER) 09/10/17 09:30 I have attempted to contact dr ricardo mendez 2 x thru the embossograph operator and called his cell phone without success. I contacted dr hernandez who reports he will only accept patient if we contact Dr Paola Mendez. I contacted the nursing spinning and winding supervisor, Suleiman Francisco, to request him to follow the chain of command. I also requested the embossograph operator page dr mendez again. 09/10/17 09:41 Dr. Mendez returned call, was updated on patient's chief complaint reason for admission and BNP and reports he will see patient on Tuesday. Machine Icer informed Dr Mendez has returned call. (DANIA MARTINEZ) - Vital Signs Vital signs: Temp Pulse Resp BP Pulse Ox 97.6 F 58 L 18 134/60 H 99 09/10/17 09:40 09/10/17 05:13 09/10/17 05:13 09/10/17 05:13 09/10/17 05:13 - Laboratory Laboratory results interpreted by me: 09/10/17 09/10/17 09/10/17 05:34 06:36 06:36 RBC 3.41 L Hgb 11.7 L Hct 34.8 L MCV 102 H MCH 34.2 H RDW 16.4 H Eosinophils % (Manual) 29 H Absolute Eos (Manual) 1.9 H Chloride 97 L Carbon Dioxide 31 H Creatinine 6.90 H Est GFR ( Amer) 7 L Est GFR (Non-Af Amer) 6 L NT-Pro-B Natriuret Pep 8750 H Lipase 312.5 H - Consults DIANA Reason for consultation: 09/10/17 08:14 pt is a dialysis pt, waiting for dr mendez to return call for admission per dr adams request. pt is a patient of dr mendez. (DANIA MARTINEZ) Discharge <HERMINIO MAYER - Last Filed: 09/10/17 08:06> - Discharge Admitting Provider: [facility] Unit Admitted: [facility] <DANIA MARTINEZ - Last Filed: 09/10/17 09:46> - Discharge Clinical Impression: Pleural effusion, left Congestive heart failure (CHF) Qualifiers: Heart failure type: unspecified Heart failure chronicity: unspecified Qualified Code(s): I50.9 - Heart failure, unspecified Condition: Stable Disposition: ADMITTED INPATIENT
[2017-09-10 06:04] LABS: HEMATOCRIT 34.8 % (36.0-47.0); HEMOGLOBIN 11.7 g/dL (12.0-15.5); MEAN CORPUSCULAR HEMOGLOBIN 34.2 pg (27.0-33.4); MEAN CORPUSCULAR HGB CONC 33.5 g/dL (32.0-36.0); MEAN CORPUSCULAR VOLUME 102 fl (80-97); PLATELET COUNT 193 10^3/uL (150-450); RED BLOOD COUNT 3.41 10^6/uL (3.72-5.28); RED CELL DISTRIBUTION WIDTH 16.4 % (11.5-14.0); WHITE BLOOD COUNT 6.6 10^3/uL (4.0-10.5)
--- NOTE | 2017-09-10 06:34 | RADIOLOGY REPORT (SQ) ---
EXAM DESCRIPTION: CHEST PA/LAT CLINICAL HISTORY: 76 years, Female, epigastric discomfort COMPARISON: 9.14.17 NUMBER OF VIEWS: 2 LIMITATIONS: None. FINDINGS: Moderate opacity in the left lower hemithorax, mild interstitial markings, moderately enlarged cardiac silhouette, atherosclerosis, and clips of the proximal left upper arm. Intact bony thorax. IMPRESSION: 1. Interval worsening includes moderate opacity of the left lower hemithorax which may indicate pneumonia or effusion. Recommend CR/CT surveillance including at 7-12 weeks following initiation of clinically warranted therapy. 2. Chronic moderate cardiac enlargement.
[2017-09-10 06:53] LABS: ABSOLUTE LYMPHOCYTES# (MANUAL) 1.4 10^3/uL (0.5-4.7); ABSOLUTE MONOCYTES # (MANUAL) 0.5 10^3/uL (0.1-1.4); ABSOLUTE NEUTROPHILS# (MANUAL) 2.8 10^3/uL (1.7-8.2); BASOPHILS % (MANUAL) 1 % (0-2); EOSINOPHILS % (MANUAL) 29 % (0-6); LYMPHOCYTES % (MANUAL) 18 % (13-45); MONOCYTES % (MANUAL) 7 % (3-13); SEGMENTED NEUTROPHILS % (MAN) 42 % (42-78); TOTAL CELLS COUNTED 100
[2017-09-10 06:54] LABS: TOXIC VACUOLATION PRESENT
[2017-09-10 06:56] LABS: ANISOCYTOSIS 1+; OVALOCYTES SLIGHT; PLATELET COMMENT ADEQUATE; POIKILOCYTOSIS SLIGHT; STOMATOCYTES SLIGHT
[2017-09-10 07:17] LABS: ALANINE AMINOTRANSFERASE 12 U/L (9-52); ALBUMIN 3.9 g/dL (3.5-5.0); ALKALINE PHOSPHATASE 79 U/L (38-126); ANION GAP 12 (5-19); ASPARTATE AMINO TRANSFERASE 25 U/L (14-36); BILIRUBIN,DIRECT 0.4 mg/dL (0.0-0.4); BILIRUBIN,TOTAL 0.4 mg/dL (0.2-1.3); BLOOD UREA NITROGEN 14 mg/dL (7-20); CALCIUM 8.6 mg/dL (8.4-10.2); CARBON DIOXIDE 31 mmol/L (22-30); CHLORIDE 97 mmol/L (98-107); GLUCOSE 87 mg/dL (75-110); LIPASE 312.5 U/L (23-300); POTASSIUM 3.8 mmol/L (3.6-5.0); SODIUM 140.4 mmol/L (137-145); TOTAL PROTEIN 6.4 g/dL (6.3-8.2)
--- NOTE | 2017-09-10 08:54 | EKG REPORT ---
SEVERITY:- ABNORMAL ECG - ACCELERATED JUNCTIONAL ESCAPE RHYTHM ABNRM R PROG, CONSIDER ASMI OR LEAD PLACEMENT BORDERLINE T WAVE ABNORMALITIES ,DIFFUSE : Confirmed by: Yury Ramirez MD 10-Sep-2017 08:53:30
[2017-09-10] MEDS ORDERED: IPRATROPIUM/ALBUTEROL 0.5-2.5 MG/3 ML AMPUL NEB PRN (11:45)
[2017-09-10] MEDS ORDERED: CEFTRIAXONE 1 GM/D5W RTU 1 GM/50 ML RTUPB IV SCH (12:00)
--- NOTE | 2017-09-10 12:50 | RADIOLOGY REPORT (SQ) ---
EXAM DESCRIPTION: CT CHEST WITHOUT COMPLETED DATE/TIME: 09/10/2017 12:36 pm REASON FOR STUDY: lt side abd pain/plural effusion COMPARISON: None. Correlation: Chest x-ray June 2016. TECHNIQUE: CT scan performed of the chest without intravenous contrast. Images reviewed with lung, soft tissue and bone windows. Reconstructed coronal and sagittal MPR images reviewed. All images st ored on PACS. All CT scanners at this facility use dose modulation, iterative reconstruction, and/or weight based d osing when appropriate to reduce radiation dose to as low as reasonably achievable (ALARA). [facility]: Dose Right [facility]: CareDose [facility]: Dose Right [facility]: Teradose 4D [facility]: myZamana RADIATION DOSE: mGy. LIMITATIONS: No technical limitations. FINDINGS: LUNGS AND PLEURA: Chronic left pleural effusion, volume estimated 500 cc. There is associ ated dependent airspace disease in the left lower lobe. Right lung is clear. HILAR AND MEDIASTINAL STRUCTURES: No identified masses or abnormal nodes. No obvious aneurysm. HEART AND VASCULAR STRUCTURES: Moderate pericardial effusion. UPPER ABDOMEN: See separate report of the CT of the abdomen. THYROID AND OTHER SOFT TISSUES: No masses. No adenopathy. BONES: No significant finding. HARDWARE: None in the chest. OTHER: No other significant findings. IMPRESSION: Chronic left pleural effusion. Moderate pericardial effusion. TECHNICAL DOCUMENTATION: JOB ID: [id number] Quality ID # [id number]: Final reports with documentation of one or more dose reduction techniques (e.g., Au tomated exposure control, adjustment of the mA and/or kV according to patient size, use of iterative reconstruction technique) 2010 [employer]- All Rights Reserved Reading location - IP/workstation name: [email or web address]
[2017-09-10] MEDS ORDERED: DEXTROSE 50%-WATER 25 GM/50 ML DISP.SYRIN IV PRN ×2 (12:52)
[2017-09-10] MEDS ORDERED: DEXTROSE 40% GEL 15 GM TUBE PO PRN ×2 (12:52)
[2017-09-10] MEDS ORDERED: GLUCAGON,HUMAN RECOMB 1 MG INJ IM PRN (12:52)
--- NOTE | 2017-09-10 12:54 | RADIOLOGY REPORT (SQ) ---
EXAM DESCRIPTION: CT ABD/PELVIS NO ORAL OR IV COMPLETED DATE/TIME: 09/10/2017 12:36 pm REASON FOR STUDY: lt side abd pain COMPARISON: 05/21/2011 TECHNIQUE: CT scan of the abdomen and pelvis performed without intravenous or oral contrast. Images reviewed with lung, soft tissue, and bone windows. Reconstructed coronal and sagittal MPR images revi ewed. All images stored on PACS. All CT scanners at this facility use dose modulation, iterative reconstruction, and/or weight based d osing when appropriate to reduce radiation dose to as low as reasonably achievable (ALARA). [facility]: Dose Right [facility]: CareDose [facility]: Dose Right [facility]: Teradose 4D [facility]: [employer] Class [employer] RADIATION DOSE: CT Rad equipment meets quality standard of care and radiation dose reduction techniq ues were employed. CTDIvol: 6.8 - 12.4 mGy. DLP: 630 mGy-cm.mGy. LIMITATIONS: None. FINDINGS: LOWER CHEST: See separate report of the CT of the chest. NON-CONTRASTED LIVER, SPLEEN, ADRENALS: Evaluation limited by lack of IV contrast. No identified sign ificant masses. PANCREAS: No masses. No peripancreatic inflammatory changes. GALLBLADDER: Surgically absent. RIGHT KIDNEY AND URETER: No suspicious masses. Assessment limited by lack of IV contrast. No signif icant calcifications. No hydronephrosis or hydroureter. LEFT KIDNEY AND URETER: No suspicious masses. Assessment limited by lack of IV contrast. No signifi cant calcifications. No hydronephrosis or hydroureter. AORTA AND RETROPERITONEUM: No aneurysm. No retroperitoneal masses or adenopathy. BOWEL AND PERITONEAL CAVITY: No obvious masses or inflammatory changes. No free fluid. APPENDIX: Normal. PELVIS, BLADDER, AND ABDOMINAL WALL:Anterior abdominal wall hernia containing fat. BONES: No acute findings. OTHER: No other significant finding. IMPRESSION: No acute findings in the abdomen or pelvis. COMMENT: Quality ID # [id number]: Final reports with documentation of one or more dose reduction techniques (e.g., Automated exposure control, adjustment of the mA and/or kV according to patient size, use of iterative reconstruction technique) TECHNICAL DOCUMENTATION: JOB ID: [id number] [employer]- All Rights Reserved Reading location - IP/workstation name: [email or web address]
[2017-09-10] MEDS ORDERED: FUROSEMIDE INJ/PF 40 MG/4 ML SDV IV ONE (13:00)
[2017-09-10] MEDS: CEFTRIAXONE SODIUM 1,000 MG in NORMAL SALINE 100 ML IV SCH (14:03)
[2017-09-10] MEDS: HEPARIN SOD (PORCINE) 5,000 UNIT/ML 1 ML SYRINGE SUBCUT SCH ×2 (14:03→23:13)
--- NOTE | 2017-09-10 14:17 | PDOC CONSULTATION ---
Consultation Consult Date: 09/10/17 Attending physician:: ELICIA JOSEPH Consult reason:: Pericardial effusion and congestive heart failure History of Present Illness Admission Date/PCP: 09/10/17 10:05 Patient complains of: Abdominal pain History of Present Illness: LOVELY ESPAÑA is a 76 year old female with a history of hypercholesterolemia, hypothyroidism, end-stage renal disease on dialysis every Tuesday, Tuesday, and Tuesday who presents to the ED complaining of "something not feeling right" in her left upper abdomen x 1-2 weeks. Patient states that she has trouble sitting up in her recliner bc of occ discomfort, but she cannot specify beyond that. Pt states that it is not pain that she feels. Patient is still eating and drinking without any difficulties or worsening symptoms. She is still having normal bowel movements. Patient denies any other recent illness. Patient did perform a full session of dialysis yesterday without any difficulties. Denies any headache, fever, neck pain, URI, sore throat, chest pain, palpitations, syncope, cough, shortness of breath, wheeze, dyspnea, nausea /vomiting/diarrhea, urinary retention, dysuria, hematuria, back pain, loss of control of bowel, numbness/tingling, saddle anesthesia, muscle paralysis/ weakness, or rash. This history was reviewed. Evaluation in the emergency room revealed a moderate sized pericardial effusion. Patient also noted to have significantly elevated creatinine but normal BUN level. Patient is very vague in providing details. Previous records reviewed. Patient was transferred to [facility] in March of last year where it seems she underwent a heart catheterization with a stent placement. However these records are pending. Past Medical History Cardiac Medical History: Reports: Myocardial Infarction - 2017, Hyperlipidema, Hypertension Denies: Coronary Artery Disease Pulmonary Medical History: Denies: Asthma, Bronchitis, Chronic Obstructive Pulmonary Disease (COPD), Pneumonia, Tuberculosis Neurological Medical History: Denies: Seizures Endocrine Medical History: Reports: Diabetes Mellitus Type 2, Hypothyroidism Renal/ Medical History: Reports: End Stage Renal Disease Musculoskeltal Medical History: Reports: Arthritis Hematology: Reports: Anemia Past Surgical History Past Surgical History: Reports: Cardiac Catheterization - Possible cardiac catheterization with stent placement. Records are pending, Cholecystectomy Denies: Pacemaker Social History Information Source: Patient Smoking Status: Never Smoker Hx Recreational Drug Use: No Hx Prescription Drug Abuse: No - Advance Directive Resuscitation Status: Full Code Family History Family History: CAD, Hypertension, Other - Kidney disease Parental Family History Reviewed: Yes Children Family History Reviewed: Yes Sibling(s) Family History Reviewed.: Yes Medication/Allergy Home Medications: Atorvastatin Calcium [Lipitor 80 mg Tablet] 80 mg PO DAILY 09/10/17 Levothyroxine Sodium [Synthroid] 150 mcg PO DAILY 09/10/17 Allergies/Adverse Reactions: adhesive tape Allergy (Intermediate, Verified 08/23/17 10:21) Generalized rash Review of Systems Review of Systems: Please see history of present illness and past medical history as wall. Constitutional: No fever or chills reported. Head : No recent chronic headaches, recent head injury. Eyes: No recent eye pain, diplopia, redness, discharge, acute visual changes. Patient blind in the right eye. Ears: No recent chronic ear pain, acute hearing loss, ear discharge. Oral cavity: No recent ulcerations, bleeding, oral cavity discomfort. Neck: No recent acute neck pain reported. Hematologic: No recent easy bruising or bleeding or hematologic malignancy reported. Lymphatic: No recent lymphatic malignancy, chronic lymphadenopathy reported yet Cardiovascular system review: See history of present illness. Respiratory system review: No recent chronic cough, hemoptysis, blood clots in the lungs reported. Mild Shortness of breath on exertion Gastrointestinal system review: Abdominal pain as noted above but denies hematemesis, melena, recent change in bowel habits. Genitourinary system review: No recent acute or chronic hematuria, flank pain, UTI etc. reported. Skin system review: Negative for any recent abnormal bruising, no rash, no pruritus reported. Neurologic: No prior history of strokes, mini strokes, seizure disorder. Psychologic: No history of major psychosis or major depression reported. Musculoskeletal: Minor aches and pains reported. No acute joint swelling reported. Endocrine: No recent polyuria, polydipsia, recent heat or cold intolerance. Physical Exam Vital Signs: Temp Pulse Resp BP Pulse Ox 97.6 F 58 L 20 144/67 H 98 09/10/17 09:40 09/10/17 05:13 09/10/17 10:01 09/10/17 10:00 09/10/17 10:01 Intake & Output 09/09/17 09/10/17 09/11/17 06:59 06:59 06:59 Weight 61.235 kg Exam: GENERAL: well-nourished and in no acute distress. Alert and oriented x3 HEAD: Atraumatic, normocephalic. EYES: Significant corneal opacity noted right eye, extraocular movements intact , sclera anicteric, conjunctiva are normal. ENT: TMs normal, nares patent, oropharynx clear without exudates. Moist mucous membranes. No oral ulcerations or bleeding gums noted NECK: supple without lymphadenopathy. Trachea is central. No cervical or axillary lymphadenopathy noted. Carotids are 2+, JVD WNL LUNGS: Respiration seems nonlabored, no significant accessory muscle action noted. Bibasilar fine crackles with few a scattered wheezes rales or rhonchi noted. Left basal dullness noted on percussion. CHEST: Palpation of the chest wall shows no significant chest wall tenderness. No other significant abnormalities noted. HEART: [place] [employer], No PSH, 2/6 ARN[place]DO aortic area, 1/6 [place] systolic murmur mitral area , no rubs, no gallops. ABDOMEN: Soft, no significant tenderness appreciated, normoactive bowel sounds. No guarding, no rebound. No rigidity noted . No masses appreciated. EXTREMITIES: Pedal pulses are 1-2+, no calf tenderness noted. No clubbing or cyanosis.1-2+ pedal edema noted NEUROLOGICAL: Focused neurological exam showed no significant neurologic deficit. Normal speech, no focal weakness appreciated. PSYCH: Normal mood, normal affect. Judgment and insight within normal limits. SKIN: No significant ecchymosis, rash, ulcerations or signs of pruritus noted. MUSCULOSKELETAL EXAM: No significant joint swelling noted. Results EKG Comments: Twelve-lead EKG shows sinus rhythm with minor nonspecific ST segment changes. Impressions: Abdomen/Pelvis CT 09/10/17 00:00 IMPRESSION: No acute findings in the abdomen or pelvis. Chest CT 09/10/17 00:00 IMPRESSION: Chronic left pleural effusion. Moderate pericardial effusion. Chest X-Ray 09/10/17 05:31 IMPRESSION: 1. Interval worsening includes moderate opacity of the left lower hemithorax which may indicate pneumonia or effusion. Recommend CR/CT surveillance including at 7-12 weeks following initiation of clinically warranted therapy. 2. Chronic moderate cardiac enlargement. Assessment & Plan - Diagnosis (1) Congestive heart failure (CHF) Qualifiers: Heart failure type: diastolic Heart failure chronicity: unspecified Qualified Code(s): I50.30 - Unspecified diastolic (congestive) heart failure Is this a current diagnosis for this admission?: Yes (2) Pericardial effusion Is this a current diagnosis for this admission?: Yes (3) Pleural effusion, left Is this a current diagnosis for this admission?: Yes (4) End stage renal disease Is this a current diagnosis for this admission?: Yes (5) Abdominal discomfort Is this a current diagnosis for this admission?: Yes (6) Hemodialysis AV fistula stenosis Qualifiers: Encounter type: subsequent encounter Qualified Code(s): T82.858D - Stenosis of other vascular prosthetic devices, implants and grafts, subsequent encounter Is this a current diagnosis for this admission?: Yes - Notes Notes: Congestive heart failure: Most likely related to diastolic dysfunction in setting of chronic renal failure but patient could also have systolic dysfunction, effusive constrictive pericarditis. Agree with obtaining 2D echocardiogram. At this point recommend diuretic therapy, salt and fluid restriction, remove fluid on dialysis. Pericardial effusion: Morrison to be moderate based on CT scan review. However CT scan tends to overestimate the pericardial effusion. No clinical evidence of pericardial tamponade noted. Left pleural effusion: Possibly related to CHF. May need to consider thoracentesis for diagnostic purposes. End-stage renal disease: Patient on chronic hemodialysis therapy. Consider removing fluid on dialysis. History of hemodialysis AV fistula: Currently is stable. We will continue to follow patient. As usual I thank Dr. Joseph very much for the kind referral. Further plans after 2D echo. - Time Time Spent: 30 to 50 Minutes - CODE STATUS was discussed, patient remains full code. Multiple medical problems were addressed. More than 50% of the time spent coordinating care, discussing management plans with involved caregivers. Management plans discussed with involved personnels. Medical decision making was of moderate to high complexity, patient's has multiple comorbidities. Medications reviewed and adjusted accordingly: Yes
--- NOTE | 2017-09-10 17:17 | XCELERA REPORT ---
[address] [address] Transthoracic Echocardiogram Report Name: LOVELY ESPAÑA Age: 76 yrs Gender: Female : 1940 Patient Status: Inpatient Patient [address]: [address] Study Date: 09/10/2017 03:54 PM Height: 64 in Weight: 135 lb BSA: 1.7 m2 Procedure: A complete two-dimensional transthoracic echocardiogram was performed (2D, M-mode, spectral and color flow Doppler). The study was technically adequate with some images being suboptimal in quality. Reason For Study: pericaral effusiob/sob/ Ordering Physician: ELICIA JOSEPH Performed By: Lisbeth Benjamin Interpretation Summary LV EF is 50% Left ventricular systolic function is mildly reduced. There is mild to moderate concentric left ventricular hypertrophy. The left ventricle is grossly normal size. Doppler measurements suggest pseudonormalized left ventricular relaxation, which is associated with grade II/IV or mild to moderate diastolic dysfunction There is apical wall akinesis The right ventricular systolic function is normal. The right atrium is normal in size The left atrium is mildly dilated. There is a moderate amount of mitral regurgitation There is no mitral valve stenosis. There is a moderate amount of aortic regurgitation There is mild aortic stenosis There is a peak gradient of 18 mm of Hg. There is a mild amount of tricuspid regurgitation There is mild to moderate pulmonary hypertension by echo Right ventricular systolic pressure is estimated to be elevated at 40- 50mmHg. The inferior vena cava appeared normal and decreased > 50% with respiration (RAP 5-10 mmHg) Small to moderate pericardial effusion. There are no echocardiographic or Doppler indications for cardiac tamponade Moderate size left pleural effusion. MMode/2D Measurements & Calculations RVDd: 2.9 cm LVIDd: 5.2 cm FS: 30.0 % MV Diam: IVSd: 1.2 cm LVIDs: 3.7 cm EDV(Teich): 2.4 cm LVPWd: 1.2 cm 131.9 ml ESV(Teich): 57.1 ml EF(Teich): 56.8 % Ao root diam: LVOT diam: 1.9 cm LA A2Cs: 30.7 cm2LA A4Cs: 2.7 cm LVOT area: 2.8 cm2 26.6 cm2 Ao root area: 5.9 cm2 LA dimension: 3.9 cm LA length: 6.4 cm LA Vol Index (BP): LA Volume: 107.8 ml 65.1 ml/m2 Doppler Measurements & Calculations MV E max adolfo: MV area (1 diam): MV P1/2t max adolfo: Ao V2 max: 121.4 cm/sec 4.5 cm2 120.9 cm/sec 210.4 cm/sec MV A max adolfo: MV Flow area MV P1/2t: 73.8 msec Ao max P.3 cm/sec MVA(P1/2t): 3.0 cm2 17.7 mmHg MV E/A: 0.91 (1diam): 4.5 cm2 MV dec slope: Ao V2 mean: 131.3 cm/sec 479.8 cm/sec2 Ao mean P.3 mmHg Ao V2 VTI: 41.6 cm FELIPE(I,D): 1.6 cm2 FELIPE(V,D): 1.8 cm2 AI max adolfo: LV V1 max PG: MR max adolfo: SV(LVOT): 67.0 ml 422.7 cm/sec 7.2 mmHg 671.3 cm/sec AI max PG: LV V1 mean PG: MR max P.5 mmHg 3.4 mmHg 180.2 mmHg AI dec slope: LV V1 max: 134.4 cm/sec 117.8 cm/sec2 LV V1 mean: AI P1/2t: 82.5 cm/sec 1051 msec LV V1 VTI: 23.8 cm LV dP/dt: 1136 mmHg/s PA V2 max: TR max adolfo: 92.3 cm/sec 328.5 cm/sec PA max PG: TR max P.4 mmHg 43.2 mmHg Left Ventricle The left ventricle is grossly normal size. There is mild to moderate concentric left ventricular hypertrophy. Left ventricular systolic function is mildly reduced. LV EF is 50%. Doppler measurements suggest pseudonormalized left ventricular relaxation, which is associated with grade II/IV or mild to moderate diastolic dysfunction. There is apical wall akinesis. Right Ventricle The right ventricle is grossly normal size. There is normal right ventricular wall thickness. The right ventricular systolic function is normal. Atria The right atrium is normal in size. The left atrium is mildly dilated. Interarterial septum not well visualized and not well dopplered. Cannot comment on ASD/PFO presence. Mitral Valve There is mild to moderate mitral leaflet calcification. There is moderate mitral annular calcification. There is no mitral valve stenosis. There is a moderate amount of mitral regurgitation. Aortic Valve The aortic valve is moderately calcified. There is mild aortic stenosis. There is a peak gradient of 18 mm of Hg. There is a moderate amount of aortic regurgitation. Tricuspid Valve The tricuspid valve is not well visualized, but is grossly normal. There is no tricuspid stenosis. There is a mild amount of tricuspid regurgitation. There is mild to moderate pulmonary hypertension by echo. Right ventricular systolic pressure is estimated to be elevated at 40-50mmHg. Pulmonic Valve The pulmonic valve is not well visualized. Great Vessels The aortic root is not well visualized but is probably normal size. The inferior vena cava appeared normal and decreased > 50% with respiration (RAP 5-10 mmHg). Effusions Small to moderate pericardial effusion. There are no echocardiographic or Doppler indications for cardiac tamponade. Moderate size left pleural effusion. : ELICIA JOSEPH > Kindra Cai
[2017-09-10 21:58] LABS: CREATINE KINASE MB 1.49 ng/mL (<4.55); TROPONIN I 0.028 ng/mL
[2017-09-11 04:20] LABS: HEMATOCRIT 34.3 % (36.0-47.0); HEMOGLOBIN 11.3 g/dL (12.0-15.5); MEAN CORPUSCULAR HEMOGLOBIN 33.3 pg (27.0-33.4); MEAN CORPUSCULAR HGB CONC 32.9 g/dL (32.0-36.0); MEAN CORPUSCULAR VOLUME 101 fl (80-97); PLATELET COUNT 196 10^3/uL (150-450); RED BLOOD COUNT 3.39 10^6/uL (3.72-5.28); RED CELL DISTRIBUTION WIDTH 15.7 % (11.5-14.0); WHITE BLOOD COUNT 6.5 10^3/uL (4.0-10.5)
[2017-09-11 04:29] LABS: ANION GAP 14 (5-19); BLOOD UREA NITROGEN 19 mg/dL (7-20); CALCIUM 8.6 mg/dL (8.4-10.2); CARBON DIOXIDE 30 mmol/L (22-30); CHLORIDE 97 mmol/L (98-107); GLUCOSE 83 mg/dL (75-110); POTASSIUM 3.7 mmol/L (3.6-5.0); SODIUM 140.7 mmol/L (137-145)
[2017-09-11 04:39] LABS: CREATINE KINASE MB 1.48 ng/mL (<4.55); TROPONIN I 0.023 ng/mL
[2017-09-11 05:32] LABS: ABSOLUTE MONOCYTES # (MANUAL) 0.2 10^3/uL (0.1-1.4); ABSOLUTE NEUTROPHILS# (MANUAL) 2.1 10^3/uL (1.7-8.2); LYMPHOCYTES % (MANUAL) 30 % (13-45); MONOCYTES % (MANUAL) 3 % (3-13); SEGMENTED NEUTROPHILS % (MAN) 32 % (42-78); TOTAL CELLS COUNTED 100
[2017-09-11 05:33] LABS: RBC MORPHOLOGY COMMENT NORMO-CYTIC/CHROMIC
[2017-09-11 05:34] LABS: BASOPHILS % (MANUAL) 6 % (0-2); EOSINOPHILS % (MANUAL) 29 % (0-6); PLATELET COMMENT ADEQUATE
[2017-09-11] MEDS: FUROSEMIDE INJ/PF 40 MG/4 ML SDV IV SCH ×3 (06:38→23:39)
[2017-09-11] MEDS: HEPARIN SOD (PORCINE) 5,000 UNIT/ML 1 ML SYRINGE SUBCUT SCH ×3 (07:37→23:40)
[2017-09-11] MEDS: LEVOTHYROXINE SODIUM 0.15 MG TABLET PO SCH (07:37)
--- NOTE | 2017-09-11 09:48 | PDOC PROGRESS REPORT ---
Subjective Progress Note for:: 09/11/17 Subjective:: Patient is currently legally blind currently denied any chest pain denied any shortness of the breath Seen by cardiology No echocardiogram done within normal EF Patients have a some moderate mitral regurgitations Patient's denied any chest pain denied any shortness of the breath today Scheduled for the dialysis in the morning Reason For Visit: CONGESTIVE HEART FAILURE ABDOMINAL PAIN LEFT SIDE Physical Exam Vital Signs: Temp Pulse Resp BP Pulse Ox 98.5 F 57 L 16 127/51 H 94 09/11/17 07:02 09/11/17 07:02 09/11/17 07:02 09/11/17 07:02 09/11/17 07:02 Intake & Output 09/10/17 09/11/17 09/12/17 06:59 06:59 06:59 Intake Total 494 Output Total 0 Balance 494 Weight 66.1 kg General appearance: PRESENT: no acute distress, well-developed, well-nourished Head exam: PRESENT: atraumatic, normocephalic Eye exam: PRESENT: conjunctiva pink, EOMI, PERRLA. ABSENT: scleral icterus Ear exam: PRESENT: normal external ear exam Mouth exam: PRESENT: moist, tongue midline Neck exam: PRESENT: full ROM. ABSENT: carotid bruit, JVD, lymphadenopathy, thyromegaly Respiratory exam: PRESENT: clear to auscultation debbie Cardiovascular exam: PRESENT: RRR. ABSENT: diastolic murmur, rubs, systolic murmur Pulses: PRESENT: normal dorsalis pedis pul, +2 pedal pulses bilateral Vascular exam: PRESENT: normal capillary refill GI/Abdominal exam: PRESENT: normal bowel sounds, soft. ABSENT: distended, guarding, mass, organolmegaly, rebound, tenderness Rectal exam: PRESENT: deferred Extremities exam: ABSENT: pedal edema Neurological exam: PRESENT: alert, awake, oriented to person, oriented to place , oriented to time, oriented to situation, CN II-XII grossly intact. ABSENT: motor sensory deficit Psychiatric exam: PRESENT: appropriate affect, normal mood. ABSENT: homicidal ideation, suicidal ideation Skin exam: PRESENT: dry, intact, warm. ABSENT: cyanosis, rash Results Laboratory Results: 09/11/17 03:38 09/11/17 03:38 09/11/17 09/11/17 03:38 03:38 WBC 6.5 RBC 3.39 L Hgb 11.3 L Hct 34.3 L MCV 101 H MCH 33.3 MCHC 32.9 RDW 15.7 H Plt Count 196 Seg Neutrophils % Not Reportable Lymphocytes % Not Reportable Monocytes % Not Reportable Eosinophils % Not Reportable Basophils % Not Reportable Absolute Neutrophils Not Reportable Absolute Lymphocytes Not Reportable Absolute Monocytes Not Reportable Absolute Eosinophils Not Reportable Absolute Basophils Not Reportable Sodium 140.7 Potassium 3.7 Chloride 97 L Carbon Dioxide 30 Anion Gap 14 BUN 19 Creatinine 8.65 H Est GFR ( Amer) 5 L Est GFR (Non-Af Amer) 4 L Glucose 83 Calcium 8.6 Magnesium 1.8 09/10/17 09/10/17 09/11/17 21:22 21:22 03:38 Creatine Kinase 109 106 CK-MB (CK-2) 1.49 Troponin I 0.028 NT-Pro-B Natriuret Pep 09/11/17 09/11/17 03:38 03:38 Creatine Kinase CK-MB (CK-2) 1.48 Troponin I 0.023 NT-Pro-B Natriuret Pep 9740 H Impressions: Abdomen/Pelvis CT 09/10/17 00:00 IMPRESSION: No acute findings in the abdomen or pelvis. Chest CT 09/10/17 00:00 IMPRESSION: Chronic left pleural effusion. Moderate pericardial effusion. Chest X-Ray 09/10/17 05:31 IMPRESSION: 1. Interval worsening includes moderate opacity of the left lower hemithorax which may indicate pneumonia or effusion. Recommend CR/CT surveillance including at 7-12 weeks following initiation of clinically warranted therapy. 2. Chronic moderate cardiac enlargement. Assessment & Plan - Diagnosis (1) Abdominal discomfort Is this a current diagnosis for this admission?: Yes Plan: Patient CT abdomen and pelvis did not see any acute finding most likely underlying diastolic heart failure's with some left-sided pleural effusions (2) Congestive heart failure (CHF) Qualifiers: Heart failure type: diastolic Heart failure chronicity: unspecified Qualified Code(s): I50.30 - Unspecified diastolic (congestive) heart failure Is this a current diagnosis for this admission?: Yes Plan: Continues to IV Lasix and scheduled for dialysis in the morning (3) End stage renal disease Is this a current diagnosis for this admission?: Yes Plan: Scheduled hemodialysis in the morning (4) Pericardial effusion Is this a current diagnosis for this admission?: Yes Plan: Is an echocardiogram is stable (5) Pleural effusion, left Is this a current diagnosis for this admission?: Yes Plan: Repeat the chest x-ray after the dialysis to reassess the pleural effusion - Time Time Spent with patient: 15-24 minutes Medications reviewed and adjusted accordingly: Yes Anticipated discharge: Other Within: Other - Inpatient Certification Medical Necessity: Need Close Monitoring Due to Risk of Patient Decompensation 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
[2017-09-11] MEDS ORDERED: ATORVASTATIN CALCIUM 80 MG TABLET PO SCH (10:00)
[2017-09-11 11:12] LABS: CREATINE KINASE MB 1.36 ng/mL (<4.55); TROPONIN I 0.029 ng/mL
--- NOTE | 2017-09-11 13:11 | PDOC PROGRESS REPORT ---
Subjective Progress Note for:: 09/11/17 Subjective:: Patient seems to be doing better with gradual improvement. Patient shortness of breath has improved. Pt is denying any chest arm or neck discomfort. Patient denying any PND, orthopnea. Patient denied any sustained palpitations, dizziness, syncope, near syncope. Patient denying any fever chills. Patient denying any other significant discomfort. 2D echo results reviewed with the patient. Patient is maintaining sinus rhythm. Review of systems: Rest review of systems negative. Medications: Medications have been reviewed. Reason For Visit: CONGESTIVE HEART FAILURE ABDOMINAL PAIN LEFT SIDE Physical Exam Vital Signs: Temp Pulse Resp BP Pulse Ox 98.5 F 62 16 127/51 H 99 09/11/17 07:02 09/11/17 11:27 09/11/17 11:27 09/11/17 07:02 09/11/17 11:27 Intake & Output 09/10/17 09/11/17 09/12/17 06:59 06:59 06:59 Intake Total 494 Output Total 0 Balance 494 Weight 66.1 kg Exam: GENERAL: well-nourished and in no acute distress. Alert and oriented x3 HEAD: Atraumatic, normocephalic. EYES: Marked corneal opacity noted right eye, extraocular movements intact, sclera anicteric, conjunctiva are normal. ENT: TMs normal, nares patent, oropharynx clear without exudates. Moist mucous membranes. No oral ulcerations or bleeding gums noted NECK: supple without lymphadenopathy. Trachea is central. No cervical or axillary lymphadenopathy noted. Carotids are 2+, JVD WNL LUNGS: Respiration seems nonlabored, no significant accessory muscle action noted. Few bibasilar crackles and left basal dullness noted on percussion. CHEST: Palpation of the chest wall shows no significant chest wall tenderness. No other significant abnormalities noted. HEART: [place] INCLINOMETER TESTER, No PSH, 1/6 [place] aortic area, 2/6 [place] systolic murmur mitral area, no rubs, positive S4. ABDOMEN: Soft, no significant tenderness appreciated, normoactive bowel sounds. No guarding, no rebound. No rigidity noted . No masses appreciated. EXTREMITIES: Pedal pulses are 1-2+, no calf tenderness noted. No clubbing or cyanosis.1+ pedal edema noted NEUROLOGICAL: Focused neurological exam showed no significant neurologic deficit. Normal speech, no focal weakness appreciated. PSYCH: Normal mood, normal affect. Judgment and insight within normal limits. SKIN: No significant ecchymosis, skin is noted to be warm. MUSCULOSKELETAL EXAM: No significant acute joint swelling noted. Results Laboratory Results: 09/11/17 03:38 09/11/17 03:38 09/11/17 09/11/17 03:38 03:38 WBC 6.5 RBC 3.39 L Hgb 11.3 L Hct 34.3 L MCV 101 H MCH 33.3 MCHC 32.9 RDW 15.7 H Plt Count 196 Seg Neutrophils % Not Reportable Lymphocytes % Not Reportable Monocytes % Not Reportable Eosinophils % Not Reportable Basophils % Not Reportable Absolute Neutrophils Not Reportable Absolute Lymphocytes Not Reportable Absolute Monocytes Not Reportable Absolute Eosinophils Not Reportable Absolute Basophils Not Reportable Sodium 140.7 Potassium 3.7 Chloride 97 L Carbon Dioxide 30 Anion Gap 14 BUN 19 Creatinine 8.65 H Est GFR ( Amer) 5 L Est GFR (Non-Af Amer) 4 L Glucose 83 Calcium 8.6 Magnesium 1.8 09/10/17 09/10/17 09/11/17 21:22 21:22 03:38 Creatine Kinase 109 106 CK-MB (CK-2) 1.49 Troponin I 0.028 NT-Pro-B Natriuret Pep 09/11/17 09/11/17 09/11/17 03:38 03:38 10:22 Creatine Kinase 106 CK-MB (CK-2) 1.48 Troponin I 0.023 NT-Pro-B Natriuret Pep 9740 H 09/11/17 10:22 Creatine Kinase CK-MB (CK-2) 1.36 Troponin I 0.029 NT-Pro-B Natriuret Pep Impressions: Abdomen/Pelvis CT 09/10/17 00:00 IMPRESSION: No acute findings in the abdomen or pelvis. Chest CT 09/10/17 00:00 IMPRESSION: Chronic left pleural effusion. Moderate pericardial effusion. Chest X-Ray 09/10/17 05:31 IMPRESSION: 1. Interval worsening includes moderate opacity of the left lower hemithorax which may indicate pneumonia or effusion. Recommend CR/CT surveillance including at 7-12 weeks following initiation of clinically warranted therapy. 2. Chronic moderate cardiac enlargement. Assessment & Plan - Diagnosis (1) Congestive heart failure (CHF) Qualifiers: Heart failure type: diastolic Heart failure chronicity: unspecified Qualified Code(s): I50.30 - Unspecified diastolic (congestive) heart failure Is this a current diagnosis for this admission?: Yes (2) Pericardial effusion Is this a current diagnosis for this admission?: Yes (3) Pleural effusion, left Is this a current diagnosis for this admission?: Yes (4) End stage renal disease Is this a current diagnosis for this admission?: Yes (5) Abdominal discomfort Is this a current diagnosis for this admission?: Yes (6) Hemodialysis AV fistula stenosis Qualifiers: Encounter type: subsequent encounter Qualified Code(s): T82.858D - Stenosis of other vascular prosthetic devices, implants and grafts, subsequent encounter Is this a current diagnosis for this admission?: Yes - Notes Notes: Patient's medical regimen reviewed. Will continue with it. We will repeat an EKG in the morning. 2D echo results reviewed in detail. May need to consider thoracentesis for diagnostic purposes. Congestive heart failure: 2D echo shows mildly depressed LVEF, diastolic dysfunction and some elements of pulmonary hypertension. Cannot rule out effusive constrictive pericarditis. 2D echo results were reviewed.. At this point recommend diuretic therapy, salt and fluid restriction, remove fluid on dialysis. Pericardial effusion: [place] to be moderate based on CT scan review. 2D echocardiogram shows mild to moderate pericardial effusion. No clinical evidence of pericardial tamponade noted. Left pleural effusion: Possibly related to CHF. May need to consider thoracentesis for diagnostic purposes. End-stage renal disease: Patient on chronic hemodialysis therapy. Consider removing fluid on dialysis. Abdominal discomfort: Was not to complain today and seems to have improved. History of hemodialysis AV fistula: Currently is stable. Patient to have some fluid removed on dialysis tomorrow. We will continue to follow patient. As usual I thank Dr. Mcpherson very much for the kind referral. - Time Time with patient: Greater than 35 minutes - CODE STATUS was discussed, patient remains full code. Surrogate decision-maker unchanged. Multiple medical problems were addressed. More than 50% of the time spent coordinating care, discussing management plans with involved caregivers. Management plans discussed with involved personnels. Medical decision making was of moderate to high complexity, patient's has multiple comorbidities. Medications reviewed and adjusted accordingly: Yes
[2017-09-11] MEDS: CEFTRIAXONE SODIUM 1,000 MG in NORMAL SALINE 100 ML IV SCH (13:42)
[2017-09-11] MEDS: ATORVASTATIN CALCIUM 80 MG TABLET PO SCH (23:39)
[2017-09-12 06:49] LABS: ANION GAP 13 (5-19); BLOOD UREA NITROGEN 25 mg/dL (7-20); CALCIUM 8.3 mg/dL (8.4-10.2); CARBON DIOXIDE 28 mmol/L (22-30); CHLORIDE 98 mmol/L (98-107); GLUCOSE 76 mg/dL (75-110); POTASSIUM 4.2 mmol/L (3.6-5.0); SODIUM 138.8 mmol/L (137-145)
[2017-09-12 06:50] LABS: ABSOLUTE BASOPHILS # (AUTO) 0.1 10^3/uL (0.0-0.2); ABSOLUTE EOSINOPHILS # (AUTO) 1.2 10^3/uL (0.0-0.6); ABSOLUTE LYMPHOCYTES (AUTO) 1.2 10^3/uL (0.5-4.7); ABSOLUTE MONOCYTES (AUTO) 0.5 10^3/uL (0.1-1.4); ABSOLUTE NEUT (AUTO) 2.2 10^3/uL (1.7-8.2); BASOPHILS % (AUTO) 2.3 % (0-2); HEMATOCRIT 35.2 % (36.0-47.0); HEMOGLOBIN 11.6 g/dL (12.0-15.5); LYMPHOCYTES % (AUTO) 23.1 % (13-45); MEAN CORPUSCULAR HEMOGLOBIN 33.7 pg (27.0-33.4); MEAN CORPUSCULAR HGB CONC 33.1 g/dL (32.0-36.0); MEAN CORPUSCULAR VOLUME 102 fl (80-97); PLATELET COUNT 201 10^3/uL (150-450); RED BLOOD COUNT 3.46 10^6/uL (3.72-5.28); RED CELL DISTRIBUTION WIDTH 16.4 % (11.5-14.0); SEGMENTED NEUTROPHILS % (AUTO) 42.6 % (42-78); TOTAL CELLS COUNTED % (AUTO) 100 %; WHITE BLOOD COUNT 5.1 10^3/uL (4.0-10.5)
[2017-09-12] MEDS: LEVOTHYROXINE SODIUM 0.15 MG TABLET PO SCH (06:56)
[2017-09-12] MEDS: HEPARIN SOD (PORCINE) 5,000 UNIT/ML 1 ML SYRINGE SUBCUT SCH ×3 (07:02→22:06)
--- NOTE | 2017-09-12 09:16 | EKG REPORT ---
SEVERITY:- ABNORMAL ECG - SINUS RHYTHM LOW VOLTAGE THROUGHOUT BORDERLINE R WAVE PROGRESSION, ANTERIOR LEADS BORDERLINE T ABNORMALITIES, ANTERIOR LEADS : Confirmed by: Kindra Cai 12-Sep-2017 09:15:48
[2017-09-12] MEDS: FUROSEMIDE INJ/PF 40 MG/4 ML SDV IV SCH ×2 (11:55→22:09)
[2017-09-12] MEDS: CEFTRIAXONE SODIUM 1,000 MG in NORMAL SALINE 100 ML IV SCH (13:48)
[2017-09-12 14:13] LABS: PATH REVIEW PATHOLOGIST REVIEWED
--- NOTE | 2017-09-12 15:23 | PDOC CONSULTATION ---
Consultation Consult Date: 09/12/17 Consult reason:: ESRD on HD History of Present Illness Admission Date/PCP: 09/10/17 10:05 History of Present Illness: LOVELY ESPAÑA is a 76 year old female with a history of long standing Hypertension, end-stage renal disease on dialysis every Tuesday, Tuesday, and Tuesday with a h/o of non compliance to diet and meds who presents to the ED complaining of "something not feeling right" in her left upper abdomen x 1-2 weeks. Patient states that she has trouble sitting up in her recliner for discomfort. Pt denies any chest pain or dyspnea. Had a uneventful dialysis as OP on tuesday. Denies any headache, fever, neck pain, URI, sore throat, chest pain, palpitations, syncope, cough, shortness of breath, wheeze, dyspnea, nausea /vomiting/diarrhea. No c/o fever or chills. No c/o urinary retention, dysuria, hematuria, back pain, loss of control of bowel, numbness/tingling, muscle paralysis/weakness, or rash. She has been seen by Cardiology and has had ECHO which showed LVEF of around 50% , Diastilic dysfunction, moderate Pulmonary hypertension, and a moderate sized pericardial effusion. Patient is very vague in providing details. Currently being seen on HD.She is undergoing HD without any issues initially but after approx 2 L fluid removal she dropped her systolic into the low 100 and remained asymptomatic. At that point her UF was cut back and she was fluid resuscitated and currently doing well without any symptoms. Past Medical History Cardiac Medical History: Reports: Hyperlipidemia, Hypertension-primary, Myocardial Infarction - 2017 Denies: Coronary Artery Disease Pulmonary Medical History: Denies: Asthma, Bronchitis, Chronic Obstructive Pulmonary Disease (COPD), Pneumonia, Tuberculosis Neurological Medical History: Denies: Seizures Endocrine Medical History: Reports: Diabetes Mellitus Type 2, Hypothyroidism Renal/ Medical History: Reports: End Stage Renal Disease, Secondary Hyperparathyroidism Musculoskeltal Medical History: Reports: Arthritis Hematology Medical History: Reports Anemia of Chronic Kidney Disease Past Surgical History Past Surgical History: Reports: Cardiac Catheterization - Possible cardiac catheterization with stent placement. Records are pending, Cholecystectomy Denies: Pacemaker Social History Smoking Status: Never Smoker Frequency of Alcohol Use: None Hx Recreational Drug Use: No Hx Prescription Drug Abuse: No - Advance Directive Resuscitation Status: Full Code Family History Parental Family History Reviewed: Yes - negative for ESRD. Children Family History Reviewed: Yes Sibling(s) Family History Reviewed.: Yes Medication/Allergy Home Medications: Atorvastatin Calcium [Lipitor 80 mg Tablet] 80 mg PO DAILY 09/10/17 Levothyroxine Sodium [Synthroid] 150 mcg PO DAILY 09/10/17 Allergies/Adverse Reactions: adhesive tape Allergy (Intermediate, Verified 08/23/17 10:21) Generalized rash Review of Systems Constitutional: PRESENT: fatigue, weakness. ABSENT: fever(s), headache(s), night sweats Nose, Mouth, and Throat: ABSENT: mouth pain, sore throat, vertigo Cardiovascular: PRESENT: orthropnea. ABSENT: dyspnea on exertion, edema, palpitations Gastrointestinal: PRESENT: bloating. ABSENT: abdominal pain, coffee ground emesis, diarrhea, melena, vomiting Integumentary: ABSENT: pruritus Neurological: ABSENT: abnormal movements, abnormal speech, focal weakness Endocrine: ABSENT: cold intolerance Hematologic/Lymphatic: ABSENT: easy bleeding, easy bruising Physical Exam Vital Signs: Temp Pulse Resp BP Pulse Ox 97.5 F 63 18 140/56 H 99 09/12/17 12:00 09/12/17 12:00 09/12/17 12:00 09/12/17 12:00 09/12/17 12:00 Intake & Output 09/11/17 09/12/17 09/13/17 06:59 06:59 06:59 Intake Total 494 651 0 Output Total 0 0 0 Balance 494 651 0 Weight 66.1 kg 67.1 kg General appearance: PRESENT: no acute distress Eye exam: PRESENT: conjunctiva pink, EOMI, PERRLA. ABSENT: nystagmus Ear exam: PRESENT: normal external ear exam Mouth exam: PRESENT: moist, neck supple Neck exam: ABSENT: lymphadenopathy, meningismus, tenderness, thyromegaly, tracheal deviation Respiratory exam: PRESENT: clear to auscultation debbie. ABSENT: crackles, rhonchi Cardiovascular exam: PRESENT: +S1, +S2, systolic murmur GI/Abdominal exam: PRESENT: normal bowel sounds, soft. ABSENT: distended, organomegaly, tenderness Extremities exam: PRESENT: +1 edema Neurological exam: PRESENT: alert, awake, oriented to person, oriented to place Psychiatric exam: PRESENT: flat affect Skin exam: ABSENT: cyanosis, erythema, mottled, petechiae Results Laboratory Results: 09/12/17 05:45 09/12/17 05:45 09/12/17 09/12/17 05:45 05:45 WBC 5.1 RBC 3.46 L Hgb 11.6 L Hct 35.2 L MCV 102 H MCH 33.7 H MCHC 33.1 RDW 16.4 H Plt Count 201 Seg Neutrophils % 42.6 Lymphocytes % 23.1 Monocytes % 9.0 Eosinophils % 23.0 H Basophils % 2.3 H Absolute Neutrophils 2.2 Absolute Lymphocytes 1.2 Absolute Monocytes 0.5 Absolute Eosinophils 1.2 H Absolute Basophils 0.1 Sodium 138.8 Potassium 4.2 Chloride 98 Carbon Dioxide 28 Anion Gap 13 BUN 25 H Creatinine 10.01 H Est GFR ( Amer) 5 L Est GFR (Non-Af Amer) 4 L Glucose 76 Calcium 8.3 L Magnesium 1.7 09/10/17 09/10/17 09/11/17 21:22 21:22 03:38 Creatine Kinase 109 106 CK-MB (CK-2) 1.49 Troponin I 0.028 NT-Pro-B Natriuret Pep 09/11/17 09/11/17 09/11/17 03:38 03:38 10:22 Creatine Kinase 106 CK-MB (CK-2) 1.48 Troponin I 0.023 NT-Pro-B Natriuret Pep 9740 H 09/11/17 09/12/17 10:22 05:45 Creatine Kinase CK-MB (CK-2) 1.36 Troponin I 0.029 NT-Pro-B Natriuret Pep 30123 H Impressions: Abdomen/Pelvis CT 09/10/17 00:00 IMPRESSION: No acute findings in the abdomen or pelvis. Chest CT 09/10/17 00:00 IMPRESSION: Chronic left pleural effusion. Moderate pericardial effusion. Chest X-Ray 09/10/17 05:31 IMPRESSION: 1. Interval worsening includes moderate opacity of the left lower hemithorax which may indicate pneumonia or effusion. Recommend CR/CT surveillance including at 7-12 weeks following initiation of clinically warranted therapy. 2. Chronic moderate cardiac enlargement. Assessment & Plan - Diagnosis (1) Hemodialysis access site with mature fistula Plan: She was seen on dialysis today. Its being supervised to ensure a safe and smooth procedure. Undergoing dialysis without issues but for transient hypotension. This has to considered carefully in the context of her moderate pericardial effusion. No objective evidence of pericardial tamponade. She remained asymptomatic at that point. Her fluid removal was then cut back and total fluid removal will be around 3 L against the planned 4l removal earlier. Orders were discussed with Cady the treating director of distance learning. (2) Pericardial effusion Is this a current diagnosis for this admission?: Yes Plan: Moderate. No evidence of Tamponade. Plan for daily dialysis treatment without any heparin. (3) Hypertension Plan: Relatively controlled.She george had a long standing h/o of non compliance to diet and meds resulting in uncontrolled hypertension and excess fluid gains between dialysis. (4) Abdominal discomfort Is this a current diagnosis for this admission?: Yes Plan: As per Dr Mcpherson. (5) Congestive heart failure (CHF) Qualifiers: Heart failure type: diastolic Heart failure chronicity: unspecified Qualified Code(s): I50.30 - Unspecified diastolic (congestive) heart failure Is this a current diagnosis for this admission?: Yes Plan: Mildly reduced LVEF and diastolic failure with additional moderate Pulmonary hypertension. (6) End stage renal disease Is this a current diagnosis for this admission?: Yes (7) Pleural effusion, left Is this a current diagnosis for this admission?: Yes Plan: versus Pneumonia. ? etiology. CT could help differentiate.
--- NOTE | 2017-09-12 15:30 | HISTORY AND PHYSICAL E ---
History and Physical NAME: LOVELY ESPAÑA : 1940 AGE: 76Y ADMITTED: 09/10/2017 ROOM: 325 HISTORY OF PRESENT ILLNESS: This is a 76-year-old female with a history of end-stage renal disease on hemodialysis seen by Dr. Mendez, history of coronary artery disease who recently went to the [facility] last March and according to the patient some kind of a valve was repaired, history of hypertension, hyperlipidemia, history of stroke in the past. Basically came to Emergency Department stating not feeling right on her left side for the last 1 or 2 weeks. Patient stated that she has trouble sitting in her recliner, but she cannot specify beyond that. Patient denied any chest pain, denied any nausea, and no vomiting. short of breath. The patient denied any cough. No congestion. No other symptoms. In the Emergency Department, the patient's initial workup was very limited. She had a chest x-ray which showed some left-sided pleural effusions. At this point, the ER physicians called for admission and suggested this is most likely heart failure. At this point because of a dialysis patient, we were asked for Nephrology coverage. Finally, the ER people contacted with Dr. Mendez to see the patient. The patient when I saw her was not really in acute distress, alert, awake, oriented, not really in any acute pulmonary edema, not really in acute CHF. The patient is mostly concerned about this left-sided discomfort and recently the heart issues and, thus, the reason I think the patient is more concerned and came to the Emergency Department. At this point, there are no cardiac enzymes. There is only a NT-BNP was 8750 and lipase was slightly elevated. I ordered a CT of the chest in the ER which showed some chronic left pleural effusions, moderate pericardial effusions. The patient had an abdominal pelvic CT ordered with these vague complaints which showed the patient to have no acute findings. At this point, we decided to admit her in the hospital and consulted Cardiology for further evaluation. We will get the medical record from [facility]. Patient recently had surgery done, a fistula repair, by Dr. Gomez. PAST MEDICAL HISTORY: 1. History of hypertension. 2. History of hyperlipidemia. 3. History of coronary artery disease. 4. History of heart valve disease, not sure which one. 5. History of cerebrovascular accident. 6. History of end-stage renal disease on hemodialysis. 7. History of type 2 diabetes mellitus. PAST SURGICAL HISTORY: 1. Cholecystectomy. 2. History of AV fistula repair. 3. History of some heart procedures. ALLERGIES: . CURRENT MEDICATIONS: The home medications include levothyroxine, , but I think the patient is taking more than that. When I was looking for Dr. Jarrett Gomez chart, she was taking Lasix 80 mg and other medications. SOCIAL HISTORY: No smoking, no alcohol. REVIEW OF SYSTEMS: As above, all other pertinent systems negative. PHYSICAL EXAMINATION: VITAL SIGNS: Blood pressure was 144/67, temperature is 98.1, pulse was 61, respirations were 20, O2 is 98% on room air. GENERAL: The patient is alert, awake, oriented x3. There was not any acute distress. HEAD AND NECK: Normocephalic. PERRL. LUNGS: No wheezing. No rales. No rhonchi. HEART: S1 and S2 are present. ABDOMEN: Soft. Bowel sounds present. EXTREMITIES: Some mild edema is present. NEUROLOGIC: No focal weakness is seen. DIAGNOSTIC DATA: She had abdominal pelvic CT with negative findings. WBC 6.6, hemoglobin 11.7, platelets 193. Patient's eosinophil is 29, neutrophil is normal. Chemistries: Sodium is 140, potassium 3.8, BUN is 14, creatinine is 6.90. The patient's AST and ALT were within normal limits. NT-BNP was 8750. Lipase is 312. ASSESSMENT: 1. LEFT-SIDED DISCOMFORT WITH PLEURAL EFFUSIONS. 2. HYPERTENSION. 3. TYPE 2 DIABETES MELLITUS. 4. END-STAGE RENAL DISEASE ON HEMODIALYSIS. 5. HYPERLIPIDEMIA. 6. CORONARY ARTERY DISEASE. PLAN: Admit the patient. Currently, it does not look like the patient will require any emergency dialysis. We will consult Dr. Mendez for ongoing hemodialysis. We will consult with Cardiology and Pulmonary evaluation for pericardial effusions especially with aortic valve disease. We will get cardiac enzymes and EKG and continue to monitor the patient. At this point, the patient is clinically hemodynamically stable. TIME SPENT: I spent more than 45 minutes planning to admit the patient and to coordinate care. DICTATING PHYSICIAN: ELICIA JOSEPH M.D. [id number] PHY#: [id number] ID: [id number] JOB#: [id number] ACCT: [id number] cc:JOSE MANUEL MIX M.D. >
--- NOTE | 2017-09-12 19:23 | PDOC PROGRESS REPORT ---
Subjective Progress Note for:: 09/12/17 Subjective:: Patient was seen on dialysis. I was told about 2.5 kg were removed of fluid. Patient did have mild hypotension towards the end of dialysis. Patient seems to be doing better with gradual improvement. Patient shortness of breath has improved. Pt is denying any chest arm or neck discomfort. Patient denying any PND, orthopnea. Patient denied any sustained palpitations, dizziness, syncope, near syncope. Patient denying any fever chills. Patient denying any other significant discomfort. 2D echo results reviewed with the patient. Patient is maintaining sinus rhythm. Review of systems: Rest review of systems negative. Medications: Medications have been reviewed. Reason For Visit: CONGESTIVE HEART FAILURE ABDOMINAL PAIN LEFT SIDE Physical Exam Vital Signs: Temp Pulse Resp BP Pulse Ox 98.3 F 58 L 18 145/56 H 91 L 09/12/17 15:31 09/12/17 15:31 09/12/17 15:31 09/12/17 15:31 09/12/17 15:31 Intake & Output 09/11/17 09/12/17 09/13/17 06:59 06:59 06:59 Intake Total 494 651 286 Output Total 0 0 2400 Balance 494 651 -2114 Weight 66.1 kg 67.1 kg Exam: GENERAL: well-nourished and in no acute distress. Alert and oriented x3 HEAD: Atraumatic, normocephalic. EYES: Significant cataract noted right eye with some corneal opacification, sclera anicteric, conjunctiva are normal. ENT: TMs normal, nares patent, oropharynx clear without exudates. Moist mucous membranes. No oral ulcerations or bleeding gums noted NECK: supple without lymphadenopathy. Trachea is central. No cervical or axillary lymphadenopathy noted. Carotids are 2+, JVD WNL LUNGS: Respiration seems nonlabored, no significant accessory muscle action noted. Mild bibasilar crackles noted. Left base mildly dull on percussion. CHEST: Palpation of the chest wall shows no significant chest wall tenderness. No other significant abnormalities noted. 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 ABDOMEN: Soft, no significant tenderness appreciated, normoactive bowel sounds. No guarding, no rebound. No rigidity noted . No masses appreciated. EXTREMITIES: Pedal pulses are 1-2+, no calf tenderness noted. No clubbing or cyanosis.trace to 1+ pedal edema noted NEUROLOGICAL: Focused neurological exam showed no significant neurologic deficit. Normal speech, no focal weakness appreciated. PSYCH: Normal mood, normal affect. Judgment and insight within normal limits. SKIN: No significant ecchymosis, skin is noted to be warm. MUSCULOSKELETAL EXAM: No significant acute joint swelling noted. Results Laboratory Results: 09/12/17 05:45 09/12/17 05:45 09/12/17 09/12/17 05:45 05:45 WBC 5.1 RBC 3.46 L Hgb 11.6 L Hct 35.2 L MCV 102 H MCH 33.7 H MCHC 33.1 RDW 16.4 H Plt Count 201 Seg Neutrophils % 42.6 Lymphocytes % 23.1 Monocytes % 9.0 Eosinophils % 23.0 H Basophils % 2.3 H Absolute Neutrophils 2.2 Absolute Lymphocytes 1.2 Absolute Monocytes 0.5 Absolute Eosinophils 1.2 H Absolute Basophils 0.1 Sodium 138.8 Potassium 4.2 Chloride 98 Carbon Dioxide 28 Anion Gap 13 BUN 25 H Creatinine 10.01 H Est GFR ( Amer) 5 L Est GFR (Non-Af Amer) 4 L Glucose 76 Calcium 8.3 L Magnesium 1.7 09/10/17 09/10/17 09/11/17 21:22 21:22 03:38 Creatine Kinase 109 106 CK-MB (CK-2) 1.49 Troponin I 0.028 NT-Pro-B Natriuret Pep 09/11/17 09/11/17 09/11/17 03:38 03:38 10:22 Creatine Kinase 106 CK-MB (CK-2) 1.48 Troponin I 0.023 NT-Pro-B Natriuret Pep 9740 H 09/11/17 09/12/17 10:22 05:45 Creatine Kinase CK-MB (CK-2) 1.36 Troponin I 0.029 NT-Pro-B Natriuret Pep 72869 H EKG Comments: Telemetry strips shows sinus rhythm without any sustained tacky cardia or bradycardia arrhythmias. Impressions: Abdomen/Pelvis CT 09/10/17 00:00 IMPRESSION: No acute findings in the abdomen or pelvis. Chest CT 09/10/17 00:00 IMPRESSION: Chronic left pleural effusion. Moderate pericardial effusion. Chest X-Ray 09/10/17 05:31 IMPRESSION: 1. Interval worsening includes moderate opacity of the left lower hemithorax which may indicate pneumonia or effusion. Recommend CR/CT surveillance including at 7-12 weeks following initiation of clinically warranted therapy. 2. Chronic moderate cardiac enlargement. Assessment & Plan - Diagnosis (1) Congestive heart failure (CHF) Qualifiers: Heart failure type: diastolic Heart failure chronicity: unspecified Qualified Code(s): I50.30 - Unspecified diastolic (congestive) heart failure Is this a current diagnosis for this admission?: Yes (2) Pericardial effusion Is this a current diagnosis for this admission?: Yes (3) Pleural effusion, left Is this a current diagnosis for this admission?: Yes (4) End stage renal disease Is this a current diagnosis for this admission?: Yes (5) Abdominal discomfort Is this a current diagnosis for this admission?: Yes (6) Hemodialysis AV fistula stenosis Qualifiers: Encounter type: subsequent encounter Qualified Code(s): T82.858D - Stenosis of other vascular prosthetic devices, implants and grafts, subsequent encounter Is this a current diagnosis for this admission?: Yes - Notes Notes: Patient seen on dialysis. Will recommend a follow-up repeat 2D echo that as an outpatient prior to discharge. Currently no evidence of pericardial tamponade. No medication changes made. Repeat EKG in the morning. Congestive heart failure: 2D echo shows mildly depressed LVEF, diastolic dysfunction and some elements of pulmonary hypertension. Cannot rule out effusive constrictive pericarditis. 2D echo results were reviewed.. At this point recommend diuretic therapy, salt and fluid restriction, remove fluid on dialysis. Pericardial effusion: [place] to be moderate based on CT scan review. 2D echocardiogram shows mild to moderate pericardial effusion. No clinical evidence of pericardial tamponade noted. Left pleural effusion: Possibly related to CHF. May need to consider thoracentesis for diagnostic purposes. End-stage renal disease: Patient on chronic hemodialysis therapy. Consider removing fluid on dialysis. Abdominal discomfort: Was not to complain today and seems to have improved. History of hemodialysis AV fistula: Currently is stable. Patient to have some fluid removed on dialysis tomorrow. We will continue to follow patient. As usual I thank Dr. Mcpherson very much for the kind referral. - Time Time with patient: Greater than 35 minutes - CODE STATUS was discussed, patient remains full code. Surrogate decision-maker unchanged. Multiple medical problems were addressed. More than 50% of the time spent coordinating care, discussing management plans with involved caregivers. Management plans discussed with involved personnels. Medical decision making was of moderate to high complexity, patient's has multiple comorbidities. Medications reviewed and adjusted accordingly: Yes
--- NOTE | 2017-09-12 20:45 | PDOC PROGRESS REPORT ---
Subjective Progress Note for:: 09/12/17 Subjective:: She was seen by the bedside, she has end-stage renal disease on maintenance hemodialysis she was admitted over the weekend when she presented with vague abdominal symptoms, CT chest and abdomen was obtained, CT chest showed left pleural effusion and moderate pericardial effusion. She was seen by cardiology and nephrology she was hemodialyzed today 2D echo was done that showed diastolic dysfunction of left ventricle, maintained systolic function of left ventricle, pulmonary hypertension Reason For Visit: CONGESTIVE HEART FAILURE ABDOMINAL PAIN LEFT SIDE Physical Exam Vital Signs: Temp Pulse Resp BP Pulse Ox 97.4 F 62 20 119/54 L 90 L 09/12/17 19:16 09/12/17 19:16 09/12/17 19:16 09/12/17 19:16 09/12/17 19:16 Intake & Output 09/11/17 09/12/17 09/13/17 06:59 06:59 06:59 Intake Total 494 651 286 Output Total 0 0 2400 Balance 494 651 -2114 Weight 66.1 kg 67.1 kg General appearance: PRESENT: no acute distress Eye exam: PRESENT: PERRLA Respiratory exam: PRESENT: decreased breath sounds Cardiovascular exam: PRESENT: +S1, +S2 GI/Abdominal exam: PRESENT: soft Neurological exam: PRESENT: alert, CN II-XII grossly intact Results Laboratory Results: 09/12/17 05:45 09/12/17 05:45 09/12/17 09/12/17 05:45 05:45 WBC 5.1 RBC 3.46 L Hgb 11.6 L Hct 35.2 L MCV 102 H MCH 33.7 H MCHC 33.1 RDW 16.4 H Plt Count 201 Seg Neutrophils % 42.6 Lymphocytes % 23.1 Monocytes % 9.0 Eosinophils % 23.0 H Basophils % 2.3 H Absolute Neutrophils 2.2 Absolute Lymphocytes 1.2 Absolute Monocytes 0.5 Absolute Eosinophils 1.2 H Absolute Basophils 0.1 Sodium 138.8 Potassium 4.2 Chloride 98 Carbon Dioxide 28 Anion Gap 13 BUN 25 H Creatinine 10.01 H Est GFR ( Amer) 5 L Est GFR (Non-Af Amer) 4 L Glucose 76 Calcium 8.3 L Magnesium 1.7 09/10/17 09/10/17 09/11/17 21:22 21:22 03:38 Creatine Kinase 109 106 CK-MB (CK-2) 1.49 Troponin I 0.028 NT-Pro-B Natriuret Pep 09/11/17 09/11/17 09/11/17 03:38 03:38 10:22 Creatine Kinase 106 CK-MB (CK-2) 1.48 Troponin I 0.023 NT-Pro-B Natriuret Pep 9740 H 09/11/17 09/12/17 10:22 05:45 Creatine Kinase CK-MB (CK-2) 1.36 Troponin I 0.029 NT-Pro-B Natriuret Pep 14575 H Impressions: Abdomen/Pelvis CT 09/10/17 00:00 IMPRESSION: No acute findings in the abdomen or pelvis. Chest CT 09/10/17 00:00 IMPRESSION: Chronic left pleural effusion. Moderate pericardial effusion. Chest X-Ray 09/10/17 05:31 IMPRESSION: 1. Interval worsening includes moderate opacity of the left lower hemithorax which may indicate pneumonia or effusion. Recommend CR/CT surveillance including at 7-12 weeks following initiation of clinically warranted therapy. 2. Chronic moderate cardiac enlargement. Assessment & Plan - Diagnosis (1) Pleural effusion, left Is this a current diagnosis for this admission?: Yes Plan: Thoracentesis to be ordered (2) Pulmonary hypertension Is this a current diagnosis for this admission?: Yes (3) Chronic diastolic (congestive) heart failure Is this a current diagnosis for this admission?: Yes
[2017-09-12 21:16] LABS: INTERNATIONAL RATION (INR) 0.98; PROTHROMBIN TIME 13.7 SEC (11.4-15.4)
[2017-09-12 21:17] LABS: PARTIAL THROMBOPLASTIN TIME 41.8 SEC (23.5-35.8)
[2017-09-12 21:23] LABS: TOTAL PROTEIN 6.1 g/dL (6.3-8.2)
[2017-09-12] MEDS: ATORVASTATIN CALCIUM 80 MG TABLET PO SCH (22:09)
[2017-09-13] MEDS: HEPARIN SOD (PORCINE) 5,000 UNIT/ML 1 ML SYRINGE SUBCUT SCH ×3 (05:26→21:40)
[2017-09-13] MEDS: LEVOTHYROXINE SODIUM 0.15 MG TABLET PO SCH (05:28)
[2017-09-13 06:00] LABS: ABSOLUTE BASOPHILS # (AUTO) 0.1 10^3/uL (0.0-0.2); ABSOLUTE LYMPHOCYTES (AUTO) 1.2 10^3/uL (0.5-4.7); ABSOLUTE MONOCYTES (AUTO) 0.5 10^3/uL (0.1-1.4); ABSOLUTE NEUT (AUTO) 2.2 10^3/uL (1.7-8.2); BASOPHILS % (AUTO) 2.1 % (0-2); EOSINOPHILS % (AUTO) 19.8 % (0-6); HEMATOCRIT 33.6 % (36.0-47.0); HEMOGLOBIN 11.2 g/dL (12.0-15.5); LYMPHOCYTES % (AUTO) 24.1 % (13-45); MEAN CORPUSCULAR HGB CONC 33.4 g/dL (32.0-36.0); MEAN CORPUSCULAR VOLUME 102 fl (80-97); MONOCYTES % (AUTO) 9.8 % (3-13); PLATELET COUNT 162 10^3/uL (150-450); RED CELL DISTRIBUTION WIDTH 16.3 % (11.5-14.0); SEGMENTED NEUTROPHILS % (AUTO) 44.2 % (42-78); TOTAL CELLS COUNTED % (AUTO) 100 %
[2017-09-13 06:25] LABS: ANION GAP 9 (5-19); BLOOD UREA NITROGEN 17 mg/dL (7-20); CALCIUM 8.6 mg/dL (8.4-10.2); CARBON DIOXIDE 31 mmol/L (22-30); CHLORIDE 99 mmol/L (98-107); GLUCOSE 82 mg/dL (75-110); POTASSIUM 3.8 mmol/L (3.6-5.0); SODIUM 139.2 mmol/L (137-145)
--- NOTE | 2017-09-13 09:15 | EKG REPORT ---
SEVERITY:- BORDERLINE ECG - SINUS RHYTHM LOW VOLTAGE IN FRONTAL LEADS BORDERLINE T ABNORMALITIES, INFERIOR LEADS : Confirmed by: Kindra Cai 13-Sep-2017 09:13:56
--- NOTE | 2017-09-13 11:39 | PDOC PROGRESS REPORT ---
Subjective Progress Note for:: 09/13/17 Subjective:: Patient was seen on dialysis. I am told that the dialysis nurse is trying to remove 2 L of fluid. Patient claims to be feeling nonspecifically bad while on dialysis. Otherwise Patient seems to be doing better with gradual improvement. Patient shortness of breath has improved. Pt is denying any chest arm or neck discomfort. Patient denying any PND, orthopnea. Patient denied any sustained palpitations, dizziness, syncope, near syncope. Patient denying any fever chills. Patient denying any other significant discomfort. 2D echo results reviewed with the patient. Patient is maintaining sinus rhythm. Review of systems: Rest review of systems negative. Medications: Medications have been reviewed. Reason For Visit: CONGESTIVE HEART FAILURE ABDOMINAL PAIN LEFT SIDE Physical Exam Vital Signs: Temp Pulse Resp BP Pulse Ox 97.9 F 59 L 18 145/59 H 91 L 09/13/17 07:51 09/13/17 07:51 09/13/17 07:51 09/13/17 07:51 09/13/17 07:51 Intake & Output 09/12/17 09/13/17 09/14/17 06:59 06:59 06:59 Intake Total 651 506 Output Total 0 2400 Balance 651 -1894 Weight 67.1 kg 67.2 kg Exam: GENERAL: well-nourished and in no acute distress. Alert and oriented x3 HEAD: Atraumatic, normocephalic. EYES: Significant cataract noted right eye, extraocular movements intact, sclera anicteric, conjunctiva are normal. ENT: TMs normal, nares patent, oropharynx clear without exudates. Moist mucous membranes. No oral ulcerations or bleeding gums noted NECK: supple without lymphadenopathy. Trachea is central. No cervical or axillary lymphadenopathy noted. Carotids are 2+, JVD WNL LUNGS: Respiration seems nonlabored, no significant accessory muscle action noted. Breath sounds clear to auscultation bilaterally and equal noted. No wheezes rales or rhonchi noted. Dullness noted left base. CHEST: Palpation of the chest wall shows no significant chest wall tenderness. No other significant abnormalities noted. 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 ABDOMEN: Soft, no significant tenderness appreciated, normoactive bowel sounds. No guarding, no rebound. No rigidity noted . No masses appreciated. EXTREMITIES: Pedal pulses are 1-2+, no calf tenderness noted. No clubbing or cyanosis.trace to 1+ pedal edema noted NEUROLOGICAL: Focused neurological exam showed no significant neurologic deficit. Normal speech, no focal weakness appreciated. PSYCH: Normal mood, normal affect. Judgment and insight within normal limits. SKIN: No significant ecchymosis, skin is noted to be warm. MUSCULOSKELETAL EXAM: No significant acute joint swelling noted. Results Laboratory Results: 09/13/17 05:10 09/13/17 05:10 09/12/17 09/13/17 09/13/17 21:00 05:10 05:10 WBC 5.0 RBC 3.30 L Hgb 11.2 L Hct 33.6 L MCV 102 H MCH 34.0 H MCHC 33.4 RDW 16.3 H Plt Count 162 Seg Neutrophils % 44.2 Lymphocytes % 24.1 Monocytes % 9.8 Eosinophils % 19.8 H Basophils % 2.1 H Absolute Neutrophils 2.2 Absolute Lymphocytes 1.2 Absolute Monocytes 0.5 Absolute Eosinophils 1.0 H Absolute Basophils 0.1 Sodium 139.2 Potassium 3.8 Chloride 99 Carbon Dioxide 31 H Anion Gap 9 BUN 17 Creatinine 8.32 H Est GFR ( Amer) 6 L Est GFR (Non-Af Amer) 5 L Glucose 82 Calcium 8.6 Magnesium 1.8 Total Protein 6.1 L 09/10/17 13:50 Blood Blood Culture - Final Streptococcus Salivarius 09/10/17 09/10/17 09/11/17 21:22 21:22 03:38 Creatine Kinase 109 106 CK-MB (CK-2) 1.49 Troponin I 0.028 NT-Pro-B Natriuret Pep 09/11/17 09/11/17 09/11/17 03:38 03:38 10:22 Creatine Kinase 106 CK-MB (CK-2) 1.48 Troponin I 0.023 NT-Pro-B Natriuret Pep 9740 H 09/11/17 09/12/17 09/13/17 10:22 05:45 05:10 Creatine Kinase CK-MB (CK-2) 1.36 Troponin I 0.029 NT-Pro-B Natriuret Pep 42469 H 78282 H EKG Comments: Twelve-lead EKG shows sinus rhythm without any sustained tacky or bradycardia arrhythmias on rhythm strip review. No acute ST-T wave changes noted on twelve- lead EKG review. Impressions: Abdomen/Pelvis CT 09/10/17 00:00 IMPRESSION: No acute findings in the abdomen or pelvis. Chest CT 09/10/17 00:00 IMPRESSION: Chronic left pleural effusion. Moderate pericardial effusion. Chest X-Ray 09/10/17 05:31 IMPRESSION: 1. Interval worsening includes moderate opacity of the left lower hemithorax which may indicate pneumonia or effusion. Recommend CR/CT surveillance including at 7-12 weeks following initiation of clinically warranted therapy. 2. Chronic moderate cardiac enlargement. Assessment & Plan - Diagnosis (1) Congestive heart failure (CHF) Qualifiers: Heart failure type: diastolic Heart failure chronicity: unspecified Qualified Code(s): I50.30 - Unspecified diastolic (congestive) heart failure Is this a current diagnosis for this admission?: Yes (2) Pericardial effusion Is this a current diagnosis for this admission?: Yes (3) Pleural effusion, left Is this a current diagnosis for this admission?: Yes (4) End stage renal disease Is this a current diagnosis for this admission?: Yes (5) Abdominal discomfort Is this a current diagnosis for this admission?: Yes (6) Hemodialysis AV fistula stenosis Qualifiers: Encounter type: subsequent encounter Qualified Code(s): T82.858D - Stenosis of other vascular prosthetic devices, implants and grafts, subsequent encounter Is this a current diagnosis for this admission?: Yes - Notes Notes: Patient seen on dialysis. CHF seems clinically improved. Currently no evidence of pericardial tamponade. Chest x-ray will be ordered to evaluate pleural effusion. May consider a nuclear stress test prior to discharge. Also recommend a limited 2D echo for status of pericardial effusion prior to discharge as soon after discharge. No medication changes made. Repeat EKG this morning showed no significant ST-T wave changes. Congestive heart failure: 2D echo shows mildly depressed LVEF, diastolic dysfunction and some elements of pulmonary hypertension. Cannot rule out effusive constrictive pericarditis. 2D echo results were reviewed.. At this point recommend diuretic therapy, salt and fluid restriction, remove fluid on dialysis. Pericardial effusion: [place] to be moderate based on CT scan review. 2D echocardiogram shows mild to moderate pericardial effusion. No clinical evidence of pericardial tamponade noted. Chest x-ray ordered. Left pleural effusion: Possibly related to CHF. May need to consider thoracentesis for diagnostic purposes. Chest x-ray ordered. End-stage renal disease: Patient on chronic hemodialysis therapy. Consider removing fluid on dialysis. This is ongoing. Abdominal discomfort: Was not to complain today and seems to have improved. History of hemodialysis AV fistula: Currently is stable. We will continue to follow patient. As usual I thank Dr. Mcpherson very much for the kind referral. - Time Time with patient: 15-25 minutes - CODE STATUS was discussed, patient remains full code. Surrogate decision-maker unchanged. Multiple medical problems were addressed. More than 50% of the time spent coordinating care, discussing management plans with involved caregivers. Management plans discussed with involved personnels. Medical decision making was of moderate to high complexity , patient's has multiple comorbidities. Medications reviewed and adjusted accordingly: Yes
[2017-09-13] MEDS: FUROSEMIDE INJ/PF 40 MG/4 ML SDV IV SCH ×2 (12:08→21:40)
--- NOTE | 2017-09-13 13:33 | PDOC PROGRESS REPORT ---
Subjective Progress Note for:: 09/13/17 Reason For Visit: Seen today on HD.She is undergoing daily dialysis to help facilitate and treat her pericardial effusion. She has no complaints on the HD. She denies any chest pains, dyspnea, fevr or chills. Labs and meds were reviewed with her.Orders were discussed with treating renal dialysis technician. Physical Exam Vital Signs: Temp Pulse Resp BP Pulse Ox 97.5 F 64 18 144/55 H 100 09/13/17 12:16 09/13/17 12:16 09/13/17 12:16 09/13/17 12:16 09/13/17 12:16 Intake & Output 09/12/17 09/13/17 09/14/17 06:59 06:59 06:59 Intake Total 651 506 0 Output Total 0 2400 0 Balance 651 -1894 0 Weight 67.1 kg 67.2 kg General appearance: PRESENT: no acute distress Respiratory exam: PRESENT: clear to auscultation debbie. ABSENT: crackles, rhonchi Cardiovascular exam: PRESENT: +S1, +S2, systolic murmur. ABSENT: rubs GI/Abdominal exam: PRESENT: normal bowel sounds, soft. ABSENT: distended, organomegaly, tenderness Extremities exam: PRESENT: pedal edema Neurological exam: PRESENT: awake, oriented to person, oriented to place Results Laboratory Results: 09/13/17 05:10 09/13/17 05:10 09/12/17 09/13/17 09/13/17 21:00 05:10 05:10 WBC 5.0 RBC 3.30 L Hgb 11.2 L Hct 33.6 L MCV 102 H MCH 34.0 H MCHC 33.4 RDW 16.3 H Plt Count 162 Seg Neutrophils % 44.2 Lymphocytes % 24.1 Monocytes % 9.8 Eosinophils % 19.8 H Basophils % 2.1 H Absolute Neutrophils 2.2 Absolute Lymphocytes 1.2 Absolute Monocytes 0.5 Absolute Eosinophils 1.0 H Absolute Basophils 0.1 Sodium 139.2 Potassium 3.8 Chloride 99 Carbon Dioxide 31 H Anion Gap 9 BUN 17 Creatinine 8.32 H Est GFR ( Amer) 6 L Est GFR (Non-Af Amer) 5 L Glucose 82 Calcium 8.6 Magnesium 1.8 Total Protein 6.1 L 09/10/17 13:50 Blood Blood Culture - Final Streptococcus Salivarius 09/10/17 09/10/17 09/11/17 21:22 21:22 03:38 Creatine Kinase 109 106 CK-MB (CK-2) 1.49 Troponin I 0.028 NT-Pro-B Natriuret Pep 09/11/17 09/11/17 09/11/17 03:38 03:38 10:22 Creatine Kinase 106 CK-MB (CK-2) 1.48 Troponin I 0.023 NT-Pro-B Natriuret Pep 9740 H 09/11/17 09/12/17 09/13/17 10:22 05:45 05:10 Creatine Kinase CK-MB (CK-2) 1.36 Troponin I 0.029 NT-Pro-B Natriuret Pep 52669 H 16694 H Impressions: Abdomen/Pelvis CT 09/10/17 00:00 IMPRESSION: No acute findings in the abdomen or pelvis. Chest CT 09/10/17 00:00 IMPRESSION: Chronic left pleural effusion. Moderate pericardial effusion. Chest X-Ray 09/10/17 05:31 IMPRESSION: 1. Interval worsening includes moderate opacity of the left lower hemithorax which may indicate pneumonia or effusion. Recommend CR/CT surveillance including at 7-12 weeks following initiation of clinically warranted therapy. 2. Chronic moderate cardiac enlargement. Assessment & Plan - Diagnosis (1) Hemodialysis access site with mature fistula Plan: She was seen on dialysis today. Its being supervised to ensure a safe and smooth procedure. Undergoing dialysis without issues. No objective evidence of pericardial tamponade. Orders were discussed with Cady the treating renal dialysis technician. (2) Pericardial effusion Is this a current diagnosis for this admission?: Yes Plan: Moderate. No evidence of Tamponade. Plan for daily dialysis treatment without any heparin. (3) Hypertension Plan: Stable. (4) Abdominal discomfort Is this a current diagnosis for this admission?: Yes (5) Congestive heart failure (CHF) Qualifiers: Heart failure type: diastolic Heart failure chronicity: unspecified Qualified Code(s): I50.30 - Unspecified diastolic (congestive) heart failure Is this a current diagnosis for this admission?: Yes Plan: Mildly reduced LVEF and diastolic failure with additional moderate Pulmonary hypertension.Stable. (6) End stage renal disease Is this a current diagnosis for this admission?: Yes (7) Pleural effusion, left Is this a current diagnosis for this admission?: Yes Plan: versus Pneumonia. ? etiology. CT could help differentiate. As per Dr Hinojosa
[2017-09-13] MEDS: CEFTRIAXONE SODIUM 1,000 MG in NORMAL SALINE 100 ML IV SCH (13:48)
[2017-09-13] MEDS ORDERED: LIDOCAINE 1% INJ-PF (10 MG/ML) 30 ML SDV ONE (14:40)
--- NOTE | 2017-09-13 15:38 | RADIOLOGY REPORT (SQ) ---
EXAM DESCRIPTION: U/S THORACENTESIS WITH IMAGING COMPLETED DATE/TIME: 09/13/2017 3:29 pm REASON FOR STUDY: left pleural effusion COMPARISON: None. LIMITATIONS: None. PROCEDURE: Procedure, risks, benefit, and alternative explained to patient who then gave written con sent. The posterior left chest wall was marked using ultrasound guidance. A time-out was called for correct marking verification. Chest prepped and draped using sterile technique. Local anesthesia ac hieved using 2 ml of 1% lidocaine injection. A 6fr Safe-T- Centesis set was introduced into the post erior left pleural space. Fluid was aspirated. The catheter was removed and the entry site was cove red with sterile bandage. No immediate complications noted. Images acquired during the procedure were stored on PACS. FINDINGS: ENTRY SITE: Posterior left chest. FLUID VOLUME: 700 cc FLUID ANALYSIS: Straw OTHER: Fluid sent to the lab for testing. IMPRESSION: SUCCESSFUL THORACENTESIS USING ULTRASOUNDan GUIDANCE. COMMENT: Patient medication list reviewed: Yes- Quality ID# [id number]:Eligible professional attests to doc umenting in the medical record they obtained, updated, or reviewed the patient's current medications. 9 Quality ID #[id number]: Final reports for procedures using fluoroscopy that document radiation exposure jeanie hossein, or exposure time and number of fluorographic images (if radiation exposure indices are not avail able) TECHNICAL DOCUMENTATION: JOB ID: [id number] [employer]- All Rights Reserved Reading location - IP/workstation name: [email or web address]
--- NOTE | 2017-09-13 15:42 | RADIOLOGY REPORT (SQ) ---
EXAM DESCRIPTION: CHEST SINGLE VIEW COMPLETED DATE/TIME: 09/13/2017 3:30 pm REASON FOR STUDY: S/P LEFT THORACENTESIS COMPARISON: 09/10/2017 EXAM PARAMETERS: NUMBER OF VIEWS: One view. TECHNIQUE: Single frontal radiographic view of the chest acquired. RADIATION DOSE: NA LIMITATIONS: None. FINDINGS: LUNGS AND PLEURA: There is a small residual left pleural effusion. There is no pneumothor ax. No acute infiltrate is present. MEDIASTINUM AND HILAR STRUCTURES: No masses. Contour normal. HEART AND VASCULAR STRUCTURES: There is cardiac enlargement. Vasculature is normal. BONES: No acute findings. HARDWARE: None in the chest. OTHER: No other significant finding. IMPRESSION: 1. There is no evidence of pneumothorax status post thoracentesis. Small residual pleu ral effusion. 2. Cardiac enlargement without delio CHF. TECHNICAL DOCUMENTATION: JOB ID: [id number] [employer]- All Rights Reserved Reading location - IP/workstation name: [email or web address]
[2017-09-13 16:13] LABS: FLUID APPEARANCE CLEAR; FLUID COLOR YELLOW; FLUID SOURCE LUNG; FLUID TYPE PLEURAL; FLUID VISCOSITY LIQUID
[2017-09-13] MEDS: ACETAMINOPHEN 325 MG TABLET PO PRN (16:55)
--- NOTE | 2017-09-13 18:03 | RADIOLOGY REPORT (SQ) ---
EXAM DESCRIPTION: CHEST SINGLE VIEW COMPLETED DATE/TIME: 09/13/2017 5:41 pm REASON FOR STUDY: 2 HOURS S/P LEFT THORACENTESIS COMPARISON: 09/13/2017 EXAM PARAMETERS: NUMBER OF VIEWS: One view. TECHNIQUE: Single frontal radiographic view of the chest acquired. RADIATION DOSE: NA LIMITATIONS: None. FINDINGS: LUNGS AND PLEURA: Small residual left pleural effusion. No pneumothorax. No acute infilt rate. MEDIASTINUM AND HILAR STRUCTURES: No masses. Contour normal. HEART AND VASCULAR STRUCTURES: Cardiac enlargement. Normal vascularity. BONES: No acute findings. HARDWARE: None in the chest. OTHER: No other significant finding. IMPRESSION: Small residual pleural effusion with no pneumothorax. Cardiac enlargement. TECHNICAL DOCUMENTATION: JOB ID: [id number] [employer]- All Rights Reserved Reading location - IP/workstation name: [email or web address]
--- NOTE | 2017-09-13 20:18 | PDOC PROGRESS REPORT ---
Subjective Progress Note for:: 09/13/17 Subjective:: She was seen by the bedside, she had left thoracentesis done today, 700 cc of fluid was removed, and analysis is pending to determine if it is transudate or exudate. She had hemodialysis today, she says she feels better. Reason For Visit: CONGESTIVE HEART FAILURE ABDOMINAL PAIN LEFT SIDE Physical Exam Vital Signs: Temp Pulse Resp BP Pulse Ox 97.4 F 65 18 117/56 L 100 09/13/17 16:00 09/13/17 16:00 09/13/17 16:00 09/13/17 16:00 09/13/17 16:00 Intake & Output 09/12/17 09/13/17 09/14/17 06:59 06:59 06:59 Intake Total 651 506 471 Output Total 0 2400 2300 Balance 905 -2041 -3073 Weight 67.1 kg 67.2 kg General appearance: PRESENT: no acute distress Eye exam: PRESENT: PERRLA Respiratory exam: PRESENT: clear to auscultation debbie Cardiovascular exam: PRESENT: +S1, +S2 GI/Abdominal exam: PRESENT: soft Neurological exam: PRESENT: alert Results Laboratory Results: 09/13/17 05:10 09/13/17 05:10 09/12/17 09/13/17 09/13/17 21:00 05:10 05:10 WBC 5.0 RBC 3.30 L Hgb 11.2 L Hct 33.6 L MCV 102 H MCH 34.0 H MCHC 33.4 RDW 16.3 H Plt Count 162 Seg Neutrophils % 44.2 Lymphocytes % 24.1 Monocytes % 9.8 Eosinophils % 19.8 H Basophils % 2.1 H Absolute Neutrophils 2.2 Absolute Lymphocytes 1.2 Absolute Monocytes 0.5 Absolute Eosinophils 1.0 H Absolute Basophils 0.1 Sodium 139.2 Potassium 3.8 Chloride 99 Carbon Dioxide 31 H Anion Gap 9 BUN 17 Creatinine 8.32 H Est GFR ( Amer) 6 L Est GFR (Non-Af Amer) 5 L Glucose 82 Calcium 8.6 Magnesium 1.8 Total Protein 6.1 L Fluid Type Fluid Source Fluid Color Fluid Appearance Fluid Viscosity Fluid WBC Fluid RBC 09/13/17 15:12 WBC RBC Hgb Hct MCV MCH MCHC RDW Plt Count Seg Neutrophils % Lymphocytes % Monocytes % Eosinophils % Basophils % Absolute Neutrophils Absolute Lymphocytes Absolute Monocytes Absolute Eosinophils Absolute Basophils Sodium Potassium Chloride Carbon Dioxide Anion Gap BUN Creatinine Est GFR ( Amer) Est GFR (Non-Af Amer) Glucose Calcium Magnesium Total Protein Fluid Type PLEURAL Fluid Source LUNG Fluid Color YELLOW Fluid Appearance CLEAR Fluid Viscosity LIQUID Fluid WBC 34 Fluid RBC 0 09/10/17 13:50 Blood Blood Culture - Final Streptococcus Salivarius 09/10/17 09/10/17 09/11/17 21:22 21:22 03:38 Creatine Kinase 109 106 CK-MB (CK-2) 1.49 Troponin I 0.028 NT-Pro-B Natriuret Pep 09/11/17 09/11/17 09/11/17 03:38 03:38 10:22 Creatine Kinase 106 CK-MB (CK-2) 1.48 Troponin I 0.023 NT-Pro-B Natriuret Pep 9740 H 09/11/17 09/12/17 09/13/17 10:22 05:45 05:10 Creatine Kinase CK-MB (CK-2) 1.36 Troponin I 0.029 NT-Pro-B Natriuret Pep 84623 H 95213 H Impressions: Abdomen/Pelvis CT 09/10/17 00:00 IMPRESSION: No acute findings in the abdomen or pelvis. Chest CT 09/10/17 00:00 IMPRESSION: Chronic left pleural effusion. Moderate pericardial effusion. Chest X-Ray 09/13/17 00:00 IMPRESSION: Small residual pleural effusion with no pneumothorax. Cardiac enlargement. Thoracentesis Ultrasound 09/13/17 20:46 IMPRESSION: SUCCESSFUL THORACENTESIS USING ULTRASOUNDan GUIDANCE. Assessment & Plan - Diagnosis (1) Pleural effusion, left Is this a current diagnosis for this admission?: Yes Plan: Continue treatment (2) Pulmonary hypertension Is this a current diagnosis for this admission?: Yes (3) Chronic diastolic (congestive) heart failure Is this a current diagnosis for this admission?: Yes (4) Pericardial effusion Is this a current diagnosis for this admission?: Yes
[2017-09-13] MEDS: ONDANSETRON HCL INJ/PF 4 MG/2 ML SDV IV PRN (20:20)
[2017-09-13] MEDS: ATORVASTATIN CALCIUM 80 MG TABLET PO SCH (21:40)
[2017-09-14] MEDS: HEPARIN SOD (PORCINE) 5,000 UNIT/ML 1 ML SYRINGE SUBCUT SCH ×3 (05:28→22:00)
[2017-09-14] MEDS: LEVOTHYROXINE SODIUM 0.15 MG TABLET PO SCH (05:28)
[2017-09-14 05:31] LABS: HEMATOCRIT 31.5 % (36.0-47.0); HEMOGLOBIN 10.6 g/dL (12.0-15.5); MEAN CORPUSCULAR HEMOGLOBIN 34.1 pg (27.0-33.4); MEAN CORPUSCULAR HGB CONC 33.6 g/dL (32.0-36.0); MEAN CORPUSCULAR VOLUME 101 fl (80-97); PLATELET COUNT 128 10^3/uL (150-450); RED BLOOD COUNT 3.11 10^6/uL (3.72-5.28); RED CELL DISTRIBUTION WIDTH 16.6 % (11.5-14.0); WHITE BLOOD COUNT 4.6 10^3/uL (4.0-10.5)
[2017-09-14 05:46] LABS: ANION GAP 10 (5-19); BLOOD UREA NITROGEN 16 mg/dL (7-20); CALCIUM 8.3 mg/dL (8.4-10.2); CARBON DIOXIDE 29 mmol/L (22-30); CHLORIDE 99 mmol/L (98-107); GLUCOSE 72 mg/dL (75-110); SODIUM 138.4 mmol/L (137-145)
[2017-09-14] MEDS: FUROSEMIDE INJ/PF 40 MG/4 ML SDV IV SCH ×2 (12:35→22:00)
[2017-09-14] MEDS: CEFTRIAXONE SODIUM 1,000 MG in NORMAL SALINE 100 ML IV SCH (13:55)
--- NOTE | 2017-09-14 15:35 | PDOC PROGRESS REPORT ---
Subjective Progress Note for:: 09/14/17 Subjective:: Patient is seen by the bedside she is somewhat confused but alert, the pleural fluid analysis is not back yet Reason For Visit: CONGESTIVE HEART FAILURE ABDOMINAL PAIN LEFT SIDE Physical Exam Vital Signs: Temp Pulse Resp BP Pulse Ox 97.8 F 65 18 116/51 L 95 09/14/17 05:34 09/14/17 14:00 09/14/17 05:34 09/14/17 05:34 09/14/17 05:34 Intake & Output 09/13/17 09/14/17 09/15/17 06:59 06:59 06:59 Intake Total 506 593 Output Total 2400 2300 Balance -1894 -1703 Weight 67.2 kg 65.1 kg General appearance: PRESENT: no acute distress Eye exam: PRESENT: PERRLA Cardiovascular exam: PRESENT: +S1 GI/Abdominal exam: PRESENT: soft Neurological exam: PRESENT: alert Results Laboratory Results: 09/14/17 05:11 09/14/17 05:11 09/13/17 09/14/17 09/14/17 15:12 05:11 05:11 WBC 4.6 RBC 3.11 L Hgb 10.6 L Hct 31.5 L MCV 101 H MCH 34.1 H MCHC 33.6 RDW 16.6 H Plt Count 128 L Sodium 138.4 Potassium 4.0 Chloride 99 Carbon Dioxide 29 Anion Gap 10 BUN 16 Creatinine 6.53 H Est GFR ( Amer) 7 L Est GFR (Non-Af Amer) 6 L Glucose 72 L Calcium 8.3 L Fluid Type PLEURAL Fluid Source LUNG Fluid Color YELLOW Fluid Appearance CLEAR Fluid Viscosity LIQUID Fluid WBC 34 Fluid RBC 0 09/10/17 09/10/17 09/11/17 21:22 21:22 03:38 Creatine Kinase 109 106 CK-MB (CK-2) 1.49 Troponin I 0.028 NT-Pro-B Natriuret Pep 09/11/17 09/11/17 09/11/17 03:38 03:38 10:22 Creatine Kinase 106 CK-MB (CK-2) 1.48 Troponin I 0.023 NT-Pro-B Natriuret Pep 9740 H 09/11/17 09/12/17 09/13/17 10:22 05:45 05:10 Creatine Kinase CK-MB (CK-2) 1.36 Troponin I 0.029 NT-Pro-B Natriuret Pep 51028 H 73390 H Impressions: Abdomen/Pelvis CT 09/10/17 00:00 IMPRESSION: No acute findings in the abdomen or pelvis. Chest CT 09/10/17 00:00 IMPRESSION: Chronic left pleural effusion. Moderate pericardial effusion. Chest X-Ray 09/13/17 00:00 IMPRESSION: Small residual pleural effusion with no pneumothorax. Cardiac enlargement. Thoracentesis Ultrasound 09/13/17 20:46 IMPRESSION: SUCCESSFUL THORACENTESIS USING ULTRASOUNDan GUIDANCE. Assessment & Plan - Diagnosis (1) Pleural effusion, left Is this a current diagnosis for this admission?: Yes (2) Pulmonary hypertension Is this a current diagnosis for this admission?: Yes (3) Chronic diastolic (congestive) heart failure Is this a current diagnosis for this admission?: Yes (4) Pericardial effusion Is this a current diagnosis for this admission?: Yes
--- NOTE | 2017-09-14 16:01 | PDOC PROGRESS REPORT ---
Subjective Progress Note for:: 09/14/17 Reason For Visit: Seen on HD today. She underwent thoracentesis of 700 cc yesterday and today feels better after that. Undergoing dialysis without any issues. However later into HD, she did become hypotensive which neccessitated stopping HD and giving her a litre of NS which restored her BP and she did fine. Later she was run even.NO c/o chest pains, dyspnea, fever or chills. Labs and meds were reviewed with her. Physical Exam Vital Signs: Temp Pulse Resp BP Pulse Ox 97.8 F 65 18 116/51 L 95 09/14/17 05:34 09/14/17 14:00 09/14/17 05:34 09/14/17 05:34 09/14/17 05:34 Intake & Output 09/13/17 09/14/17 09/15/17 06:59 06:59 06:59 Intake Total 506 593 Output Total 2400 2300 Balance -1894 -1707 Weight 67.2 kg 65.1 kg General appearance: PRESENT: no acute distress Respiratory exam: PRESENT: clear to auscultation debbie. ABSENT: crackles Cardiovascular exam: PRESENT: +S1, +S2, systolic murmur. ABSENT: rubs GI/Abdominal exam: PRESENT: normal bowel sounds, soft. ABSENT: distended, organomegaly, tenderness Extremities exam: PRESENT: pedal edema Neurological exam: PRESENT: awake, oriented to person, oriented to place Results Laboratory Results: 09/14/17 05:11 09/14/17 05:11 09/13/17 09/14/17 09/14/17 15:12 05:11 05:11 WBC 4.6 RBC 3.11 L Hgb 10.6 L Hct 31.5 L MCV 101 H MCH 34.1 H MCHC 33.6 RDW 16.6 H Plt Count 128 L Sodium 138.4 Potassium 4.0 Chloride 99 Carbon Dioxide 29 Anion Gap 10 BUN 16 Creatinine 6.53 H Est GFR ( Amer) 7 L Est GFR (Non-Af Amer) 6 L Glucose 72 L Calcium 8.3 L Fluid Type PLEURAL Fluid Source LUNG Fluid Color YELLOW Fluid Appearance CLEAR Fluid Viscosity LIQUID Fluid WBC 34 Fluid RBC 0 09/10/17 09/10/17 09/11/17 21:22 21:22 03:38 Creatine Kinase 109 106 CK-MB (CK-2) 1.49 Troponin I 0.028 NT-Pro-B Natriuret Pep 09/11/17 09/11/17 09/11/17 03:38 03:38 10:22 Creatine Kinase 106 CK-MB (CK-2) 1.48 Troponin I 0.023 NT-Pro-B Natriuret Pep 9740 H 09/11/17 09/12/17 09/13/17 10:22 05:45 05:10 Creatine Kinase CK-MB (CK-2) 1.36 Troponin I 0.029 NT-Pro-B Natriuret Pep 61574 H 59146 H Impressions: Abdomen/Pelvis CT 09/10/17 00:00 IMPRESSION: No acute findings in the abdomen or pelvis. Chest CT 09/10/17 00:00 IMPRESSION: Chronic left pleural effusion. Moderate pericardial effusion. Chest X-Ray 09/13/17 00:00 IMPRESSION: Small residual pleural effusion with no pneumothorax. Cardiac enlargement. Thoracentesis Ultrasound 09/13/17 20:46 IMPRESSION: SUCCESSFUL THORACENTESIS USING ULTRASOUNDan GUIDANCE. Assessment & Plan - Diagnosis (1) Hemodialysis access site with mature fistula Plan: She was seen on dialysis today. Its being supervised to ensure a safe and smooth procedure. Undergoing dialysis without issues. No objective evidence of pericardial tamponade. Orders were discussed with Cady the treating housing installer. She did become hypotensive later into HD which required her being given a Litre of fluid and she did fine after that. She will be dialysed again tomorrow. (2) Pericardial effusion Is this a current diagnosis for this admission?: Yes Plan: Moderate. No evidence of Tamponade. Plan for daily dialysis treatment without any heparin. (3) Hypertension Plan: Stable. (4) Abdominal discomfort Is this a current diagnosis for this admission?: Yes Plan: As per Dr Hinojosa (5) Congestive heart failure (CHF) Qualifiers: Heart failure type: diastolic Heart failure chronicity: unspecified Qualified Code(s): I50.30 - Unspecified diastolic (congestive) heart failure Is this a current diagnosis for this admission?: Yes Plan: Mildly reduced LVEF and diastolic failure with additional moderate Pulmonary hypertension.Stable. (6) End stage renal disease Is this a current diagnosis for this admission?: Yes (7) Pleural effusion, left Is this a current diagnosis for this admission?: Yes Plan: S/P Thoracentesis and she is feeling better.
--- NOTE | 2017-09-14 20:37 | PDOC PROGRESS REPORT ---
Subjective Progress Note for:: 09/14/17 Subjective:: Patient has thoracentesis performed yesterday. Apparently 700 mL's were removed. Today on dialysis, while removing fluid, patient had episode of hypotension and nurses reported bradycardia on the telemetry monitor. These resolved with normal saline bolus. When seen after dialysis patient had no complaints. I am told by the nurses that patient's been intermittently confused. Pt is denying any chest arm or neck discomfort. Patient denying any PND, orthopnea. Patient denied any sustained palpitations, dizziness, syncope, near syncope. Patient denying any fever chills. Patient denying any other significant discomfort. 2D echo results reviewed with the patient. Patient is maintaining sinus rhythm. Review of systems: Rest review of systems negative. Medications: Medications have been reviewed. Reason For Visit: CONGESTIVE HEART FAILURE ABDOMINAL PAIN LEFT SIDE Physical Exam Vital Signs: Temp Pulse Resp BP Pulse Ox 99.2 F 79 20 128/50 H 93 09/14/17 19:27 09/14/17 19:27 09/14/17 19:27 09/14/17 19:27 09/14/17 19:27 Intake & Output 09/13/17 09/14/17 09/15/17 06:59 06:59 06:59 Intake Total 506 593 664 Output Total 2400 2300 700 Balance -0844 -0997 -36 Weight 67.2 kg 65.1 kg Exam: GENERAL: well-nourished and in no acute distress. Alert and oriented x3 HEAD: Atraumatic, normocephalic. EYES: Pupils equal round and reactive to light, extraocular movements intact, sclera anicteric, conjunctiva are normal. ENT: TMs normal, nares patent, oropharynx clear without exudates. Moist mucous membranes. No oral ulcerations or bleeding gums noted NECK: supple without lymphadenopathy. Trachea is central. No cervical or axillary lymphadenopathy noted. Carotids are 2+, JVD WNL LUNGS: Respiration seems nonlabored, no significant accessory muscle action noted. Breath sounds clear to auscultation bilaterally and equal noted. No wheezes rales or rhonchi noted. Mild bilateral dullness noted. CHEST: Palpation of the chest wall shows no significant chest wall tenderness. No other significant abnormalities noted. HEART: [place] SPEECH ASSISTANT, No PSH, 1/6 [place] aortic area, 1/6 [place] systolic murmur mitral area, no rubs, no gallops. ABDOMEN: Soft, no significant tenderness appreciated, normoactive bowel sounds. No guarding, no rebound. No rigidity noted . No masses appreciated. EXTREMITIES: Pedal pulses are 1-2+, no calf tenderness noted. No clubbing or cyanosis.trace pedal edema noted NEUROLOGICAL: Focused neurological exam showed no significant neurologic deficit. Normal speech, no focal weakness appreciated. PSYCH: Normal mood, normal affect. Judgment and insight within normal limits. SKIN: No significant ecchymosis, skin is noted to be warm. MUSCULOSKELETAL EXAM: No significant acute joint swelling noted. Results Laboratory Results: 09/14/17 05:11 09/14/17 05:11 09/14/17 09/14/17 05:11 05:11 WBC 4.6 RBC 3.11 L Hgb 10.6 L Hct 31.5 L MCV 101 H MCH 34.1 H MCHC 33.6 RDW 16.6 H Plt Count 128 L Sodium 138.4 Potassium 4.0 Chloride 99 Carbon Dioxide 29 Anion Gap 10 BUN 16 Creatinine 6.53 H Est GFR ( Amer) 7 L Est GFR (Non-Af Amer) 6 L Glucose 72 L Calcium 8.3 L 09/10/17 09/10/17 09/11/17 21:22 21:22 03:38 Creatine Kinase 109 106 CK-MB (CK-2) 1.49 Troponin I 0.028 NT-Pro-B Natriuret Pep 09/11/17 09/11/17 09/11/17 03:38 03:38 10:22 Creatine Kinase 106 CK-MB (CK-2) 1.48 Troponin I 0.023 NT-Pro-B Natriuret Pep 9740 H 09/11/17 09/12/17 09/13/17 10:22 05:45 05:10 Creatine Kinase CK-MB (CK-2) 1.36 Troponin I 0.029 NT-Pro-B Natriuret Pep 56898 H 46492 H EKG Comments: Telemetry strip shows sinus rhythm. Impressions: Abdomen/Pelvis CT 09/10/17 00:00 IMPRESSION: No acute findings in the abdomen or pelvis. Chest CT 09/10/17 00:00 IMPRESSION: Chronic left pleural effusion. Moderate pericardial effusion. Chest X-Ray 09/13/17 00:00 IMPRESSION: Small residual pleural effusion with no pneumothorax. Cardiac enlargement. Thoracentesis Ultrasound 09/13/17 20:46 IMPRESSION: SUCCESSFUL THORACENTESIS USING ULTRASOUNDan GUIDANCE. Assessment & Plan - Diagnosis (1) Congestive heart failure (CHF) Qualifiers: Heart failure type: diastolic Heart failure chronicity: unspecified Qualified Code(s): I50.30 - Unspecified diastolic (congestive) heart failure Is this a current diagnosis for this admission?: Yes (2) Pericardial effusion Is this a current diagnosis for this admission?: Yes (3) Pleural effusion, left Is this a current diagnosis for this admission?: Yes (4) End stage renal disease Is this a current diagnosis for this admission?: Yes (5) Abdominal discomfort Is this a current diagnosis for this admission?: Yes (6) Hemodialysis AV fistula stenosis Qualifiers: Encounter type: subsequent encounter Qualified Code(s): T82.858D - Stenosis of other vascular prosthetic devices, implants and grafts, subsequent encounter Is this a current diagnosis for this admission?: Yes - Notes Notes: Congestive heart failure: Seems clinically improved with significant fluid removal on subsequent days on dialysis. 2D echo shows mildly depressed LVEF, diastolic dysfunction and some elements of pulmonary hypertension. At this point recommend diuretic therapy, salt and fluid restriction, remove fluid on dialysis. Will repeat a limited 2D echo. Pericardial effusion: [place] to be moderate based on CT scan review. 2D echocardiogram shows mild to moderate pericardial effusion. No clinical evidence of pericardial tamponade noted. Left pleural effusion: Possibly related to CHF. Thoracentesis performed. Results are pending. End-stage renal disease: Patient on chronic hemodialysis therapy. Had hypotensive episode on dialysis. Will consider a stress test. Abdominal discomfort: Was not to complain today and seems to have improved. History of hemodialysis AV fistula: Currently is stable. We will continue to follow patient. - Time Time with patient: Greater than 35 minutes - CODE STATUS was discussed, patient remains full code. Surrogate decision-maker unchanged. Multiple medical problems were addressed. More than 50% of the time spent coordinating care, discussing management plans with involved caregivers. Management plans discussed with involved personnels. Medical decision making was of moderate to high complexity, patient's has multiple comorbidities. Medications reviewed and adjusted accordingly: Yes
[2017-09-14] MEDS: ATORVASTATIN CALCIUM 80 MG TABLET PO SCH (22:13)
[2017-09-15] MEDS: ONDANSETRON HCL INJ/PF 4 MG/2 ML SDV IV PRN (00:38)
[2017-09-15 05:24] LABS: HEMATOCRIT 32.5 % (36.0-47.0); HEMOGLOBIN 10.7 g/dL (12.0-15.5); MEAN CORPUSCULAR HEMOGLOBIN 33.8 pg (27.0-33.4); MEAN CORPUSCULAR HGB CONC 33.1 g/dL (32.0-36.0); MEAN CORPUSCULAR VOLUME 102 fl (80-97); PLATELET COUNT 127 10^3/uL (150-450); RED BLOOD COUNT 3.17 10^6/uL (3.72-5.28); RED CELL DISTRIBUTION WIDTH 16.8 % (11.5-14.0); WHITE BLOOD COUNT 3.9 10^3/uL (4.0-10.5)
[2017-09-15 05:47] LABS: ANION GAP 12 (5-19); BLOOD UREA NITROGEN 11 mg/dL (7-20); CALCIUM 8.5 mg/dL (8.4-10.2); CARBON DIOXIDE 30 mmol/L (22-30); CHLORIDE 98 mmol/L (98-107); GLUCOSE 89 mg/dL (75-110); POTASSIUM 4.4 mmol/L (3.6-5.0); SODIUM 139.7 mmol/L (137-145)
[2017-09-15] MEDS: HEPARIN SOD (PORCINE) 5,000 UNIT/ML 1 ML SYRINGE SUBCUT SCH ×3 (05:50→22:11)
[2017-09-15] MEDS: LEVOTHYROXINE SODIUM 0.15 MG TABLET PO SCH (05:52)
[2017-09-15 12:56] LABS: TOTAL PROTEIN BODY FLUID 3.8 g/dL (.)
--- NOTE | 2017-09-15 13:01 | PDOC PROGRESS REPORT ---
Subjective Progress Note for:: 09/15/17 Subjective:: Patient was seen on dialysis today. She had an echo done today according sumaya the dialysis nurse. Currently patient says she feels better. No complaints of shortness of breath, chest pain, fevers or chills. Reason For Visit: CONGESTIVE HEART FAILURE ABDOMINAL PAIN LEFT SIDE Physical Exam Vital Signs: Temp Pulse Resp BP Pulse Ox 99.1 F 62 20 131/52 H 94 09/14/17 23:36 09/15/17 07:00 09/14/17 23:36 09/14/17 23:36 09/14/17 23:36 Intake & Output 09/14/17 09/15/17 09/16/17 06:59 06:59 06:59 Intake Total 593 1026 Output Total 2300 700 Balance -1707 326 Weight 65.1 kg 62 kg General appearance: PRESENT: no acute distress, well-developed, well-nourished Mouth exam: PRESENT: moist, neck supple Neck exam: PRESENT: full ROM. ABSENT: JVD Respiratory exam: PRESENT: clear to auscultation debbie. ABSENT: accessory muscle use, crackles, rales, wheezes Cardiovascular exam: PRESENT: +S1, +S2, systolic murmur. ABSENT: rubs GI/Abdominal exam: PRESENT: normal bowel sounds, soft. ABSENT: distended, organomegaly, tenderness Extremities exam: PRESENT: pedal edema - -trace+. ABSENT: tenderness Musculoskeletal exam: PRESENT: normal inspection. ABSENT: tenderness Neurological exam: PRESENT: alert, awake, oriented to person, oriented to place , oriented to time, oriented to situation Skin exam: PRESENT: dry, intact, warm Results Laboratory Results: 09/15/17 04:37 09/15/17 04:37 09/15/17 09/15/17 04:37 04:37 WBC 3.9 L RBC 3.17 L Hgb 10.7 L Hct 32.5 L MCV 102 H MCH 33.8 H MCHC 33.1 RDW 16.8 H Plt Count 127 L Sodium 139.7 Potassium 4.4 Chloride 98 Carbon Dioxide 30 Anion Gap 12 BUN 11 Creatinine 5.53 H Est GFR ( Amer) 9 L Est GFR (Non-Af Amer) 7 L Glucose 89 Calcium 8.5 09/10/17 09/10/17 09/11/17 21:22 21:22 03:38 Creatine Kinase 109 106 CK-MB (CK-2) 1.49 Troponin I 0.028 NT-Pro-B Natriuret Pep 09/11/17 09/11/17 09/11/17 03:38 03:38 10:22 Creatine Kinase 106 CK-MB (CK-2) 1.48 Troponin I 0.023 NT-Pro-B Natriuret Pep 9740 H 09/11/17 09/12/17 09/13/17 10:22 05:45 05:10 Creatine Kinase CK-MB (CK-2) 1.36 Troponin I 0.029 NT-Pro-B Natriuret Pep 80527 H 24605 H Impressions: Abdomen/Pelvis CT 09/10/17 00:00 IMPRESSION: No acute findings in the abdomen or pelvis. Chest CT 09/10/17 00:00 IMPRESSION: Chronic left pleural effusion. Moderate pericardial effusion. Chest X-Ray 09/13/17 00:00 IMPRESSION: Small residual pleural effusion with no pneumothorax. Cardiac enlargement. Thoracentesis Ultrasound 09/13/17 20:46 IMPRESSION: SUCCESSFUL THORACENTESIS USING ULTRASOUNDan GUIDANCE. Assessment & Plan - Diagnosis (1) End stage renal disease Is this a current diagnosis for this admission?: Yes Plan: She was seen on dialysis today. Its being supervised to ensure a safe and smooth procedure. Undergoing dialysis without issues. No objective evidence of pericardial tamponade. Orders were discussed with Sumaya the treating safe technician. 1.2L is being removed today. Close monitoring of her blood pressure is being done by Sumaya. Currently VS are stable. She will again have dialysis tomorrow. (2) Pericardial effusion Is this a current diagnosis for this admission?: Yes Plan: awaiting results of echo, currently receiving daily dialysis without heparin (3) Pleural effusion, left Is this a current diagnosis for this admission?: Yes Plan: recent pleurocentesis (4) Hypertension Plan: better controlled (5) Congestive heart failure (CHF) Qualifiers: Heart failure type: diastolic Heart failure chronicity: unspecified Qualified Code(s): I50.30 - Unspecified diastolic (congestive) heart failure Is this a current diagnosis for this admission?: Yes Plan: resolved
--- NOTE | 2017-09-15 13:09 | XCELERA REPORT ---
[address] [address] Transthoracic Echocardiogram Report Name: LOVELY ESPAÑA Age: 76 yrs Gender: Female : 1940 Patient Status: Inpatient Patient Location: [address] [place] [address] Study Date: 09/15/2017 08:57 AM Height: 64 in Weight: 136 lb BSA: 1.7 m2 Procedure: A limited two-dimensional transthoracic echocardiogram was performed (2D). Reason For Study: Pericardial effusion follow-up Ordering Physician: KINDRA GREWAL Performed By: Sailaja Rowe Interpretation Summary A limited two-dimensional transthoracic echocardiogram was performed (2D). Small to moderate pericardial effusion. There are no echocardiographic or Doppler indications for cardiac tamponade MMode/2D Measurements & Calculations RVDd: 3.6 cm LVIDd: 4.8 cm FS: 26.2 % Ao root diam: 2.4 cm IVSd: 1.00 cm LVIDs: 3.5 cm EDV(Teich): 106.1 ml LVPWd: 1.0 cm ESV(Teich): 51.6 ml Ao root area: 4.5 cm2 EF(Teich): 51.4 % LA dimension: 3.5 cm Effusions Small to moderate pericardial effusion. There are no echocardiographic or Doppler indications for cardiac tamponade. : KINDRA GREWAL > Kindra Grewal
[2017-09-15] MEDS: FUROSEMIDE INJ/PF 40 MG/4 ML SDV IV SCH ×2 (14:27→22:14)
[2017-09-15] MEDS: CEFTRIAXONE SODIUM 1,000 MG in NORMAL SALINE 100 ML IV SCH (14:34)
[2017-09-15] MEDS: ACETAMINOPHEN 325 MG TABLET PO PRN (15:31)
--- NOTE | 2017-09-15 17:59 | PDOC PROGRESS REPORT ---
Subjective Progress Note for:: 09/15/17 Subjective:: The ratio of the total protein in pleural fluid/serum is 0.6 consistent with exudate,But the LDH ratio is consistent with a transudate, 2 conflicting data does not know what to make of these but patient seems to be improving, Reason For Visit: CONGESTIVE HEART FAILURE ABDOMINAL PAIN LEFT SIDE Physical Exam Vital Signs: Temp Pulse Resp BP Pulse Ox 98.1 F 62 18 143/56 H 93 09/15/17 15:16 09/15/17 15:16 09/15/17 15:16 09/15/17 15:16 09/15/17 08:20 Intake & Output 09/14/17 09/15/17 09/16/17 06:59 06:59 06:59 Intake Total 593 1026 Output Total 2300 700 1900 Balance -1707 326 -1900 Weight 65.1 kg 62 kg General appearance: PRESENT: no acute distress Eye exam: PRESENT: PERRLA Respiratory exam: PRESENT: clear to auscultation debbie Cardiovascular exam: PRESENT: +S1, +S2 Neurological exam: PRESENT: alert Results Laboratory Results: 09/15/17 04:37 09/15/17 04:37 09/13/17 09/13/17 09/15/17 15:12 15:12 04:37 WBC 3.9 L RBC 3.17 L Hgb 10.7 L Hct 32.5 L MCV 102 H MCH 33.8 H MCHC 33.1 RDW 16.8 H Plt Count 127 L Sodium Potassium Chloride Carbon Dioxide Anion Gap BUN Creatinine Est GFR ( Amer) Est GFR (Non-Af Amer) Glucose Calcium Fluid Glucose 118 Fluid Total Protein 3.8 Fluid LDH 129 09/15/17 04:37 WBC RBC Hgb Hct MCV MCH MCHC RDW Plt Count Sodium 139.7 Potassium 4.4 Chloride 98 Carbon Dioxide 30 Anion Gap 12 BUN 11 Creatinine 5.53 H Est GFR ( Amer) 9 L Est GFR (Non-Af Amer) 7 L Glucose 89 Calcium 8.5 Fluid Glucose Fluid Total Protein Fluid LDH 09/10/17 09/10/17 09/11/17 21:22 21:22 03:38 Creatine Kinase 109 106 CK-MB (CK-2) 1.49 Troponin I 0.028 NT-Pro-B Natriuret Pep 09/11/17 09/11/17 09/11/17 03:38 03:38 10:22 Creatine Kinase 106 CK-MB (CK-2) 1.48 Troponin I 0.023 NT-Pro-B Natriuret Pep 9740 H 09/11/17 09/12/17 09/13/17 10:22 05:45 05:10 Creatine Kinase CK-MB (CK-2) 1.36 Troponin I 0.029 NT-Pro-B Natriuret Pep 94348 H 17175 H Impressions: Abdomen/Pelvis CT 09/10/17 00:00 IMPRESSION: No acute findings in the abdomen or pelvis. Chest CT 09/10/17 00:00 IMPRESSION: Chronic left pleural effusion. Moderate pericardial effusion. Chest X-Ray 09/13/17 00:00 IMPRESSION: Small residual pleural effusion with no pneumothorax. Cardiac enlargement. Thoracentesis Ultrasound 09/13/17 20:46 IMPRESSION: SUCCESSFUL THORACENTESIS USING ULTRASOUNDan GUIDANCE. Assessment & Plan - Diagnosis (1) Pleural effusion, left Is this a current diagnosis for this admission?: Yes (2) Pulmonary hypertension Is this a current diagnosis for this admission?: Yes (3) Chronic diastolic (congestive) heart failure Is this a current diagnosis for this admission?: Yes (4) Pericardial effusion Is this a current diagnosis for this admission?: Yes
--- NOTE | 2017-09-15 20:24 | PDOC PROGRESS REPORT ---
Subjective Progress Note for:: 09/15/17 Subjective:: Pt is denying any chest arm or neck discomfort. Patient denying any PND, orthopnea. Patient denied any sustained palpitations, dizziness, syncope, near syncope. Patient denying any fever chills. Patient denying any other significant discomfort. Patient actually tolerated dialysis much better today. Results of pleural fluid aspiration is somewhat equivocal. 2D echo results reviewed with the patient. Patient is maintaining sinus rhythm. Review of systems: Rest review of systems negative. Medications: Medications have been reviewed. Reason For Visit: CONGESTIVE HEART FAILURE ABDOMINAL PAIN LEFT SIDE Physical Exam Vital Signs: Temp Pulse Resp BP Pulse Ox 97.4 F 58 L 16 127/47 H 97 09/15/17 15:44 09/15/17 15:44 09/15/17 15:44 09/15/17 15:44 09/15/17 15:44 Intake & Output 09/14/17 09/15/17 09/16/17 06:59 06:59 06:59 Intake Total 593 1026 355 Output Total 2300 700 1900 Balance -1707 326 -1545 Weight 65.1 kg 62 kg Exam: GENERAL: well-nourished and in no acute distress. Alert and oriented x3 HEAD: Atraumatic, normocephalic. EYES: Pupils equal round and reactive to light, extraocular movements intact, sclera anicteric, conjunctiva are normal. ENT: TMs normal, nares patent, oropharynx clear without exudates. Moist mucous membranes. No oral ulcerations or bleeding gums noted NECK: supple without lymphadenopathy. Trachea is central. No cervical or axillary lymphadenopathy noted. Carotids are 2+, JVD WNL LUNGS: Respiration seems nonlabored, no significant accessory muscle action noted. Breath sounds clear to auscultation bilaterally and equal noted. No wheezes rales or rhonchi noted. Mild dullness noted left-sided chest CHEST: Palpation of the chest wall shows no significant chest wall tenderness. No other significant abnormalities noted. 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 ABDOMEN: Soft, no significant tenderness appreciated, normoactive bowel sounds. No guarding, no rebound. No rigidity noted . No masses appreciated. EXTREMITIES: Pedal pulses are 1-2+, no calf tenderness noted. No clubbing or cyanosis.trace pedal edema noted NEUROLOGICAL: Focused neurological exam showed no significant neurologic deficit. Normal speech, no focal weakness appreciated. PSYCH: Normal mood, normal affect. Judgment and insight within normal limits. SKIN: No significant ecchymosis, skin is noted to be warm. MUSCULOSKELETAL EXAM: No significant acute joint swelling noted. Results Laboratory Results: 09/15/17 04:37 09/15/17 04:37 09/13/17 09/13/17 09/15/17 15:12 15:12 04:37 WBC 3.9 L RBC 3.17 L Hgb 10.7 L Hct 32.5 L MCV 102 H MCH 33.8 H MCHC 33.1 RDW 16.8 H Plt Count 127 L Sodium Potassium Chloride Carbon Dioxide Anion Gap BUN Creatinine Est GFR ( Amer) Est GFR (Non-Af Amer) Glucose Calcium Fluid Glucose 118 Fluid Total Protein 3.8 Fluid LDH 129 09/15/17 04:37 WBC RBC Hgb Hct MCV MCH MCHC RDW Plt Count Sodium 139.7 Potassium 4.4 Chloride 98 Carbon Dioxide 30 Anion Gap 12 BUN 11 Creatinine 5.53 H Est GFR ( Amer) 9 L Est GFR (Non-Af Amer) 7 L Glucose 89 Calcium 8.5 Fluid Glucose Fluid Total Protein Fluid LDH 09/10/17 09/10/17 09/11/17 21:22 21:22 03:38 Creatine Kinase 109 106 CK-MB (CK-2) 1.49 Troponin I 0.028 NT-Pro-B Natriuret Pep 09/11/17 09/11/17 09/11/17 03:38 03:38 10:22 Creatine Kinase 106 CK-MB (CK-2) 1.48 Troponin I 0.023 NT-Pro-B Natriuret Pep 9740 H 09/11/17 09/12/17 09/13/17 10:22 05:45 05:10 Creatine Kinase CK-MB (CK-2) 1.36 Troponin I 0.029 NT-Pro-B Natriuret Pep 74707 H 55920 H EKG Comments: Telemetry shows sinus rhythm without any sustained tacky or bradycardia arrhythmias. Impressions: Abdomen/Pelvis CT 09/10/17 00:00 IMPRESSION: No acute findings in the abdomen or pelvis. Chest CT 09/10/17 00:00 IMPRESSION: Chronic left pleural effusion. Moderate pericardial effusion. Chest X-Ray 09/13/17 00:00 IMPRESSION: Small residual pleural effusion with no pneumothorax. Cardiac enlargement. Thoracentesis Ultrasound 09/13/17 20:46 IMPRESSION: SUCCESSFUL THORACENTESIS USING ULTRASOUNDan GUIDANCE. Assessment & Plan - Diagnosis (1) Congestive heart failure (CHF) Qualifiers: Heart failure type: diastolic Heart failure chronicity: unspecified Qualified Code(s): I50.30 - Unspecified diastolic (congestive) heart failure Is this a current diagnosis for this admission?: Yes (2) Pericardial effusion Is this a current diagnosis for this admission?: Yes (3) Pleural effusion, left Is this a current diagnosis for this admission?: Yes (4) End stage renal disease Is this a current diagnosis for this admission?: Yes (5) Abdominal discomfort Is this a current diagnosis for this admission?: Yes (6) Hemodialysis AV fistula stenosis Qualifiers: Encounter type: subsequent encounter Qualified Code(s): T82.858D - Stenosis of other vascular prosthetic devices, implants and grafts, subsequent encounter Is this a current diagnosis for this admission?: Yes - Notes Notes: Congestive heart failure: Seems clinically improved with significant fluid removal on subsequent days on dialysis. 2D echo shows mildly depressed LVEF, diastolic dysfunction and some elements of pulmonary hypertension. Continue with salt and fluid restriction, remove fluid on dialysis. Pericardial effusion: [place] to be moderate based on CT scan review. 2D echocardiogram shows mild to moderate pericardial effusion. No clinical evidence of pericardial tamponade noted. 2D echo was repeated. It showed pericardial effusion is still a uqtmt-pi-psovpviw in size but seems somewhat improved. No evidence of tamponade noted. Left pleural effusion: Possibly related to CHF. Thoracentesis performed. Results are now equuvocal. End-stage renal disease: Patient on chronic hemodialysis therapy. Has tolerated dialysis well today. Abdominal discomfort: seems to have improved. History of hemodialysis AV fistula: Currently is stable. We will continue to follow patient. - Time Time with patient: Greater than 35 minutes - 2D echo results reviewed. CODE STATUS was discussed, patient remains full code. Surrogate decision-maker unchanged. Multiple medical problems were addressed. More than 50% of the time spent coordinating care, discussing management plans with involved caregivers. Management plans discussed with involved personnels. Medical decision making was of moderate to high complexity, patient's has multiple comorbidities. Medications reviewed and adjusted accordingly: Yes
[2017-09-15] MEDS: ATORVASTATIN CALCIUM 80 MG TABLET PO SCH (22:14)
[2017-09-16 05:11] LABS: HEMATOCRIT 31.4 % (36.0-47.0); HEMOGLOBIN 10.5 g/dL (12.0-15.5); MEAN CORPUSCULAR HEMOGLOBIN 34.2 pg (27.0-33.4); MEAN CORPUSCULAR HGB CONC 33.3 g/dL (32.0-36.0); MEAN CORPUSCULAR VOLUME 103 fl (80-97); PLATELET COUNT 113 10^3/uL (150-450); RED BLOOD COUNT 3.06 10^6/uL (3.72-5.28); RED CELL DISTRIBUTION WIDTH 16.4 % (11.5-14.0); WHITE BLOOD COUNT 4.5 10^3/uL (4.0-10.5)
[2017-09-16 05:34] LABS: ANION GAP 10 (5-19); BLOOD UREA NITROGEN 10 mg/dL (7-20); CALCIUM 8.6 mg/dL (8.4-10.2); CARBON DIOXIDE 30 mmol/L (22-30); CHLORIDE 102 mmol/L (98-107); GLUCOSE 70 mg/dL (75-110); POTASSIUM 3.8 mmol/L (3.6-5.0); SODIUM 141.8 mmol/L (137-145)
[2017-09-16] MEDS: HEPARIN SOD (PORCINE) 5,000 UNIT/ML 1 ML SYRINGE SUBCUT SCH ×3 (05:37→21:30)
[2017-09-16] MEDS: LEVOTHYROXINE SODIUM 0.15 MG TABLET PO SCH (05:40)
--- NOTE | 2017-09-16 13:29 | PDOC PROGRESS REPORT ---
Subjective Progress Note for:: 09/16/17 Reason For Visit: Seen on HD today.Undergoing dialysis without any issues.Denies any chest pains, dyspnea, fever or chills.Labs and meds were reviewed with her.Orders were discussed with treating HD RN. Physical Exam Vital Signs: Temp Pulse Resp BP Pulse Ox 98.3 F 57 L 18 139/57 H 100 09/16/17 07:11 09/16/17 07:11 09/16/17 07:11 09/16/17 07:11 09/16/17 07:11 Intake & Output 09/15/17 09/16/17 09/17/17 06:59 06:59 06:59 Intake Total 1026 1051 Output Total 700 1900 Balance 326 -849 Weight 62 kg 61.2 kg General appearance: PRESENT: no acute distress Respiratory exam: PRESENT: clear to auscultation debbie. ABSENT: crackles Cardiovascular exam: PRESENT: +S1, +S2, systolic murmur. ABSENT: rubs GI/Abdominal exam: PRESENT: normal bowel sounds, soft. ABSENT: distended, organomegaly, tenderness Extremities exam: PRESENT: pedal edema Neurological exam: PRESENT: awake, oriented to person, oriented to place Results Laboratory Results: 09/16/17 04:58 09/16/17 04:58 09/16/17 09/16/17 04:58 04:58 WBC 4.5 RBC 3.06 L Hgb 10.5 L Hct 31.4 L MCV 103 H MCH 34.2 H MCHC 33.3 RDW 16.4 H Plt Count 113 L Sodium 141.8 Potassium 3.8 Chloride 102 Carbon Dioxide 30 Anion Gap 10 BUN 10 Creatinine 5.16 H Est GFR ( Amer) 10 L Est GFR (Non-Af Amer) 8 L Glucose 70 L Calcium 8.6 09/13/17 15:12 Pleural Fluid AFB Smear Concentration - Final 09/13/17 15:12 Pleural Fluid Acid Fast Bacilli Smear - Final 09/10/17 21:22 Blood Blood Culture - Final NO GROWTH IN 5 DAYS 09/10/17 09/10/17 09/11/17 21:22 21:22 03:38 Creatine Kinase 109 106 CK-MB (CK-2) 1.49 Troponin I 0.028 NT-Pro-B Natriuret Pep 09/11/17 09/11/17 09/11/17 03:38 03:38 10:22 Creatine Kinase 106 CK-MB (CK-2) 1.48 Troponin I 0.023 NT-Pro-B Natriuret Pep 9740 H 09/11/17 09/12/17 09/13/17 10:22 05:45 05:10 Creatine Kinase CK-MB (CK-2) 1.36 Troponin I 0.029 NT-Pro-B Natriuret Pep 38194 H 42269 H Impressions: Abdomen/Pelvis CT 09/10/17 00:00 IMPRESSION: No acute findings in the abdomen or pelvis. Chest CT 09/10/17 00:00 IMPRESSION: Chronic left pleural effusion. Moderate pericardial effusion. Chest X-Ray 09/13/17 00:00 IMPRESSION: Small residual pleural effusion with no pneumothorax. Cardiac enlargement. Thoracentesis Ultrasound 09/13/17 20:46 IMPRESSION: SUCCESSFUL THORACENTESIS USING ULTRASOUNDan GUIDANCE. Assessment & Plan - Diagnosis (1) Hemodialysis access site with mature fistula Plan: She was seen on dialysis today. Its being supervised to ensure a safe and smooth procedure. Undergoing dialysis without issues. No objective evidence of pericardial tamponade. Orders were discussed with the treating electrical assistant. . (2) Pericardial effusion Is this a current diagnosis for this admission?: Yes Plan: Moderate. No evidence of Tamponade. Plan for daily dialysis treatment without any heparin. (3) Hypertension Plan: Stable. (4) Abdominal discomfort Is this a current diagnosis for this admission?: Yes (5) Congestive heart failure (CHF) Qualifiers: Heart failure type: diastolic Heart failure chronicity: unspecified Qualified Code(s): I50.30 - Unspecified diastolic (congestive) heart failure Is this a current diagnosis for this admission?: Yes Plan: Mildly reduced LVEF and diastolic failure with additional moderate Pulmonary hypertension.Stable. (6) End stage renal disease Is this a current diagnosis for this admission?: Yes (7) Pleural effusion, left Is this a current diagnosis for this admission?: Yes Plan: S/P Thoracentesis and she is feeling better.
[2017-09-16] MEDS: FUROSEMIDE INJ/PF 40 MG/4 ML SDV IV SCH ×2 (17:24→21:47)
[2017-09-16] MEDS: CEFTRIAXONE SODIUM 1,000 MG in NORMAL SALINE 100 ML IV SCH (17:24)
--- NOTE | 2017-09-16 20:30 | PDOC PROGRESS REPORT ---
Subjective Progress Note for:: 09/16/17 Subjective:: She was seen by the bedside, symptoms improving Reason For Visit: CONGESTIVE HEART FAILURE ABDOMINAL PAIN LEFT SIDE Physical Exam Vital Signs: Temp Pulse Resp BP Pulse Ox 97.7 F 66 20 92/37 L 100 09/16/17 19:32 09/16/17 19:32 09/16/17 19:32 09/16/17 19:32 09/16/17 19:32 Intake & Output 09/15/17 09/16/17 09/17/17 06:59 06:59 06:59 Intake Total 1026 1051 220 Output Total 700 1900 0 Balance 326 -849 220 Weight 62 kg 61.2 kg General appearance: PRESENT: no acute distress Eye exam: PRESENT: PERRLA Respiratory exam: PRESENT: clear to auscultation debbie Cardiovascular exam: PRESENT: +S1, +S2 GI/Abdominal exam: PRESENT: soft Neurological exam: PRESENT: alert Results Laboratory Results: 09/16/17 04:58 09/16/17 04:58 09/16/17 09/16/17 04:58 04:58 WBC 4.5 RBC 3.06 L Hgb 10.5 L Hct 31.4 L MCV 103 H MCH 34.2 H MCHC 33.3 RDW 16.4 H Plt Count 113 L Sodium 141.8 Potassium 3.8 Chloride 102 Carbon Dioxide 30 Anion Gap 10 BUN 10 Creatinine 5.16 H Est GFR ( Amer) 10 L Est GFR (Non-Af Amer) 8 L Glucose 70 L Calcium 8.6 09/13/17 15:12 Pleural Fluid AFB Smear Concentration - Final 09/13/17 15:12 Pleural Fluid Acid Fast Bacilli Smear - Final 09/10/17 21:22 Blood Blood Culture - Final NO GROWTH IN 5 DAYS 09/10/17 09/10/17 09/11/17 21:22 21:22 03:38 Creatine Kinase 109 106 CK-MB (CK-2) 1.49 Troponin I 0.028 NT-Pro-B Natriuret Pep 09/11/17 09/11/17 09/11/17 03:38 03:38 10:22 Creatine Kinase 106 CK-MB (CK-2) 1.48 Troponin I 0.023 NT-Pro-B Natriuret Pep 9740 H 09/11/17 09/12/17 09/13/17 10:22 05:45 05:10 Creatine Kinase CK-MB (CK-2) 1.36 Troponin I 0.029 NT-Pro-B Natriuret Pep 57424 H 83474 H Impressions: Abdomen/Pelvis CT 09/10/17 00:00 IMPRESSION: No acute findings in the abdomen or pelvis. Chest CT 09/10/17 00:00 IMPRESSION: Chronic left pleural effusion. Moderate pericardial effusion. Chest X-Ray 09/13/17 00:00 IMPRESSION: Small residual pleural effusion with no pneumothorax. Cardiac enlargement. Thoracentesis Ultrasound 09/13/17 20:46 IMPRESSION: SUCCESSFUL THORACENTESIS USING ULTRASOUNDan GUIDANCE. Assessment & Plan - Diagnosis (1) Pleural effusion, left Is this a current diagnosis for this admission?: Yes (2) Pulmonary hypertension Is this a current diagnosis for this admission?: Yes (3) Chronic diastolic (congestive) heart failure Is this a current diagnosis for this admission?: Yes (4) Pericardial effusion Is this a current diagnosis for this admission?: Yes
[2017-09-16] MEDS: ATORVASTATIN CALCIUM 80 MG TABLET PO SCH (21:42)
[2017-09-17] MEDS: ACETAMINOPHEN 325 MG TABLET PO PRN (01:38)
[2017-09-17] MEDS: HEPARIN SOD (PORCINE) 5,000 UNIT/ML 1 ML SYRINGE SUBCUT SCH ×3 (05:00→22:59)
[2017-09-17] MEDS: LEVOTHYROXINE SODIUM 0.15 MG TABLET PO SCH (05:03)
[2017-09-17] MEDS: FUROSEMIDE INJ/PF 40 MG/4 ML SDV IV SCH ×2 (09:01→22:59)
--- NOTE | 2017-09-17 15:00 | PDOC PROGRESS REPORT ---
Subjective Progress Note for:: 09/17/17 Subjective:: She was seen by the bedside, symptoms improving Reason For Visit: CONGESTIVE HEART FAILURE ABDOMINAL PAIN LEFT SIDE Physical Exam Vital Signs: Temp Pulse Resp BP Pulse Ox 98.3 F 75 20 116/76 100 09/17/17 11:11 09/17/17 13:59 09/17/17 11:11 09/17/17 11:11 09/17/17 11:11 Intake & Output 09/16/17 09/17/17 09/18/17 06:59 06:59 07:59 Intake Total 1051 470 237 Output Total 1900 0 0 Balance -849 470 237 Weight 61.2 kg 63.2 kg General appearance: PRESENT: no acute distress Eye exam: PRESENT: PERRLA Respiratory exam: PRESENT: clear to auscultation debbie Cardiovascular exam: PRESENT: +S1, +S2 GI/Abdominal exam: PRESENT: soft Neurological exam: PRESENT: alert, CN II-XII grossly intact Results Laboratory Results: 09/16/17 04:58 09/16/17 04:58 09/13/17 15:12 Pleural Fluid Gram Stain - Final 09/13/17 15:12 Pleural Fluid Body Fluid Culture - Final NO AEROBIC OR ANAEROBIC ORGANISMS RECOVERED 09/10/17 09/10/17 09/11/17 21:22 21:22 03:38 Creatine Kinase 109 106 CK-MB (CK-2) 1.49 Troponin I 0.028 NT-Pro-B Natriuret Pep 09/11/17 09/11/17 09/11/17 03:38 03:38 10:22 Creatine Kinase 106 CK-MB (CK-2) 1.48 Troponin I 0.023 NT-Pro-B Natriuret Pep 9740 H 09/11/17 09/12/17 09/13/17 10:22 05:45 05:10 Creatine Kinase CK-MB (CK-2) 1.36 Troponin I 0.029 NT-Pro-B Natriuret Pep 49672 H 60934 H Impressions: Abdomen/Pelvis CT 09/10/17 00:00 IMPRESSION: No acute findings in the abdomen or pelvis. Chest CT 09/10/17 00:00 IMPRESSION: Chronic left pleural effusion. Moderate pericardial effusion. Chest X-Ray 09/13/17 00:00 IMPRESSION: Small residual pleural effusion with no pneumothorax. Cardiac enlargement. Thoracentesis Ultrasound 09/13/17 20:46 IMPRESSION: SUCCESSFUL THORACENTESIS USING ULTRASOUNDan GUIDANCE. Assessment & Plan - Diagnosis (1) Pleural effusion, left Is this a current diagnosis for this admission?: Yes (2) Pulmonary hypertension Is this a current diagnosis for this admission?: Yes (3) Chronic diastolic (congestive) heart failure Is this a current diagnosis for this admission?: Yes (4) Pericardial effusion Is this a current diagnosis for this admission?: Yes
--- NOTE | 2017-09-17 15:15 | PDOC PROGRESS REPORT ---
Subjective Progress Note for:: 09/16/17 Subjective:: Pt is denying any chest arm or neck discomfort. Patient denying any PND, orthopnea. Patient denied any sustained palpitations, dizziness, syncope, near syncope. Patient denying any fever chills. Patient denying any other significant discomfort. Patient seems to be tolerating dialysis better. 2D echo shows probable mildly decreased pericardial effusion 2D echo results reviewed with the patient. Patient is maintaining sinus rhythm. Review of systems: Rest review of systems negative. Medications: Medications have been reviewed. Reason For Visit: CONGESTIVE HEART FAILURE ABDOMINAL PAIN LEFT SIDE Physical Exam Vital Signs: Temp Pulse Resp BP Pulse Ox 97.7 F 66 20 92/37 L 100 09/16/17 19:32 09/16/17 19:32 09/16/17 19:32 09/16/17 19:32 09/16/17 19:32 Intake & Output 09/15/17 09/16/17 09/17/17 06:59 06:59 06:59 Intake Total 1026 1051 220 Output Total 700 1900 0 Balance 326 -849 220 Weight 62 kg 61.2 kg Exam: GENERAL: well-nourished and in no acute distress. Alert and oriented x3 HEAD: Atraumatic, normocephalic. EYES: Significant cataract noted right eye. Sclera anicteric, conjunctiva are normal. ENT: TMs normal, nares patent, oropharynx clear without exudates. Moist mucous membranes. No oral ulcerations or bleeding gums noted NECK: supple without lymphadenopathy. Trachea is central. No cervical or axillary lymphadenopathy noted. Carotids are 2+, JVD WNL LUNGS: Respiration seems nonlabored, no significant accessory muscle action noted. Breath sounds clear to auscultation bilaterally and equal noted. No wheezes rales or rhonchi noted. No significant dullness noted on percussion. CHEST: Palpation of the chest wall shows no significant chest wall tenderness. No other significant abnormalities noted. 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 ABDOMEN: Soft, no significant tenderness appreciated, normoactive bowel sounds. No guarding, no rebound. No rigidity noted . No masses appreciated. EXTREMITIES: Pedal pulses are 1-2+, no calf tenderness noted. No clubbing or cyanosis.trace to 1+ pedal edema noted NEUROLOGICAL: Focused neurological exam showed no significant neurologic deficit. Normal speech, no focal weakness appreciated. PSYCH: Normal mood, normal affect. Judgment and insight within normal limits. SKIN: No significant ecchymosis, skin is noted to be warm. MUSCULOSKELETAL EXAM: No significant acute joint swelling noted. Results Laboratory Results: 09/16/17 04:58 09/16/17 04:58 09/16/17 09/16/17 04:58 04:58 WBC 4.5 RBC 3.06 L Hgb 10.5 L Hct 31.4 L MCV 103 H MCH 34.2 H MCHC 33.3 RDW 16.4 H Plt Count 113 L Sodium 141.8 Potassium 3.8 Chloride 102 Carbon Dioxide 30 Anion Gap 10 BUN 10 Creatinine 5.16 H Est GFR ( Amer) 10 L Est GFR (Non-Af Amer) 8 L Glucose 70 L Calcium 8.6 09/13/17 15:12 Pleural Fluid AFB Smear Concentration - Final 09/13/17 15:12 Pleural Fluid Acid Fast Bacilli Smear - Final 09/10/17 21:22 Blood Blood Culture - Final NO GROWTH IN 5 DAYS 09/10/17 09/10/17 09/11/17 21:22 21:22 03:38 Creatine Kinase 109 106 CK-MB (CK-2) 1.49 Troponin I 0.028 NT-Pro-B Natriuret Pep 09/11/17 09/11/17 09/11/17 03:38 03:38 10:22 Creatine Kinase 106 CK-MB (CK-2) 1.48 Troponin I 0.023 NT-Pro-B Natriuret Pep 9740 H 09/11/17 09/12/17 09/13/17 10:22 05:45 05:10 Creatine Kinase CK-MB (CK-2) 1.36 Troponin I 0.029 NT-Pro-B Natriuret Pep 87618 H [id number] H EKG Comments: Telemetry strips showed sinus rhythm without any sustained tachycardia or bradycardia. Impressions: Abdomen/Pelvis CT 09/10/17 00:00 IMPRESSION: No acute findings in the abdomen or pelvis. Chest CT 09/10/17 00:00 IMPRESSION: Chronic left pleural effusion. Moderate pericardial effusion. Chest X-Ray 09/13/17 00:00 IMPRESSION: Small residual pleural effusion with no pneumothorax. Cardiac enlargement. Thoracentesis Ultrasound 09/13/17 20:46 IMPRESSION: SUCCESSFUL THORACENTESIS USING ULTRASOUNDan GUIDANCE. Assessment & Plan - Diagnosis (1) Congestive heart failure (CHF) Qualifiers: Heart failure type: diastolic Heart failure chronicity: unspecified Qualified Code(s): I50.30 - Unspecified diastolic (congestive) heart failure Is this a current diagnosis for this admission?: Yes (2) Pericardial effusion Is this a current diagnosis for this admission?: Yes (3) Pleural effusion, left Is this a current diagnosis for this admission?: Yes (4) End stage renal disease Is this a current diagnosis for this admission?: Yes (5) Abdominal discomfort Is this a current diagnosis for this admission?: Yes (6) Hemodialysis AV fistula stenosis Qualifiers: Encounter type: subsequent encounter Qualified Code(s): T82.858D - Stenosis of other vascular prosthetic devices, implants and grafts, subsequent encounter Is this a current diagnosis for this admission?: Yes - Notes Notes: Congestive heart failure: Seems clinically improved with significant fluid removal on subsequent days on dialysis. 2D echo shows mildly depressed LVEF, diastolic dysfunction and some elements of pulmonary hypertension. Continue with salt and fluid restriction, remove fluid on dialysis, which may have accumulated since last dialysis. Pericardial effusion: [place] to be moderate based on CT scan review. 2D echocardiogram shows mild to moderate pericardial effusion. No clinical evidence of pericardial tamponade noted. 2D echo was repeated. It showed pericardial effusion is still a gguum-ni-bclqudzg in size but seems somewhat improved. No evidence of tamponade noted. Left pleural effusion: Possibly related to CHF. Thoracentesis performed. Results are now equuvocal. End-stage renal disease: Patient on chronic hemodialysis therapy. Has tolerated dialysis well today. Abdominal discomfort: seems to have improved. History of hemodialysis AV fistula: Currently is stable. We will continue to follow patient. We will repeat an EKG tomorrow. - Time Time with patient: 15-25 minutes - CODE STATUS was discussed, patient remains full code. Surrogate decision-maker unchanged. Multiple medical problems were addressed. More than 50% of the time spent coordinating care, discussing management plans with involved caregivers. Management plans discussed with involved personnels. Medical decision making was of moderate to high complexity , patient's has multiple comorbidities. Medications reviewed and adjusted accordingly: Yes
--- NOTE | 2017-09-17 15:18 | PDOC PROGRESS REPORT ---
Subjective Progress Note for:: 09/17/17 Subjective:: Pt is denying any chest arm or neck discomfort. Patient denying any PND, orthopnea. Patient denied any sustained palpitations, dizziness, syncope, near syncope. Patient denying any fever chills. Patient denying any other significant discomfort. Patient is resting comfortably in bed.. Patient is maintaining sinus rhythm. Review of systems: Rest review of systems negative. Medications: Medications have been reviewed. Reason For Visit: CONGESTIVE HEART FAILURE ABDOMINAL PAIN LEFT SIDE Physical Exam Vital Signs: Temp Pulse Resp BP Pulse Ox 98.3 F 75 20 116/76 100 09/17/17 11:11 09/17/17 13:59 09/17/17 11:11 09/17/17 11:11 09/17/17 11:11 Intake & Output 09/16/17 09/17/17 09/18/17 06:59 06:59 07:59 Intake Total 1051 470 237 Output Total 1900 0 0 Balance -849 470 237 Weight 61.2 kg 63.2 kg Exam: GENERAL: well-nourished and in no acute distress. Alert and oriented x3 HEAD: Atraumatic, normocephalic. EYES: Significant cataract noted right eye, extraocular movements intact, sclera anicteric, conjunctiva are normal. ENT: TMs normal, nares patent, oropharynx clear without exudates. Moist mucous membranes. No oral ulcerations or bleeding gums noted NECK: supple without lymphadenopathy. Trachea is central. No cervical or axillary lymphadenopathy noted. Carotids are 2+, JVD WNL LUNGS: Respiration seems nonlabored, no significant accessory muscle action noted. Bibasilar fine crackles and mild dullness left base. CHEST: Palpation of the chest wall shows no significant chest wall tenderness. No other significant abnormalities noted. 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 ABDOMEN: Soft, no significant tenderness appreciated, normoactive bowel sounds. No guarding, no rebound. No rigidity noted . No masses appreciated. EXTREMITIES: Pedal pulses are 1-2+, no calf tenderness noted. No clubbing or cyanosis.trace to 1+ pedal edema noted NEUROLOGICAL: Focused neurological exam showed no significant neurologic deficit. Normal speech, no focal weakness appreciated. PSYCH: Normal mood, normal affect. Judgment and insight within normal limits. SKIN: No significant ecchymosis, skin is noted to be warm. MUSCULOSKELETAL EXAM: No significant acute joint swelling noted. Results Laboratory Results: 09/16/17 04:58 09/16/17 04:58 09/13/17 15:12 Pleural Fluid Gram Stain - Final 09/13/17 15:12 Pleural Fluid Body Fluid Culture - Final NO AEROBIC OR ANAEROBIC ORGANISMS RECOVERED 09/10/17 09/10/17 09/11/17 21:22 21:22 03:38 Creatine Kinase 109 106 CK-MB (CK-2) 1.49 Troponin I 0.028 NT-Pro-B Natriuret Pep 09/11/17 09/11/17 09/11/17 03:38 03:38 10:22 Creatine Kinase 106 CK-MB (CK-2) 1.48 Troponin I 0.023 NT-Pro-B Natriuret Pep 9740 H 09/11/17 09/12/17 09/13/17 10:22 05:45 05:10 Creatine Kinase CK-MB (CK-2) 1.36 Troponin I 0.029 NT-Pro-B Natriuret Pep 41281 H 08812 H EKG Comments: Telemetry strips shows sinus rhythm without any sustained tachycardia or bradycardia. Impressions: Abdomen/Pelvis CT 09/10/17 00:00 IMPRESSION: No acute findings in the abdomen or pelvis. Chest CT 09/10/17 00:00 IMPRESSION: Chronic left pleural effusion. Moderate pericardial effusion. Chest X-Ray 09/13/17 00:00 IMPRESSION: Small residual pleural effusion with no pneumothorax. Cardiac enlargement. Thoracentesis Ultrasound 09/13/17 20:46 IMPRESSION: SUCCESSFUL THORACENTESIS USING ULTRASOUNDan GUIDANCE. Assessment & Plan - Diagnosis (1) Congestive heart failure (CHF) Qualifiers: Heart failure type: diastolic Heart failure chronicity: unspecified Qualified Code(s): I50.30 - Unspecified diastolic (congestive) heart failure Is this a current diagnosis for this admission?: Yes (2) Pericardial effusion Is this a current diagnosis for this admission?: Yes (3) Pleural effusion, left Is this a current diagnosis for this admission?: Yes (4) End stage renal disease Is this a current diagnosis for this admission?: Yes (5) Abdominal discomfort Is this a current diagnosis for this admission?: Yes (6) Hemodialysis AV fistula stenosis Qualifiers: Encounter type: subsequent encounter Qualified Code(s): T82.858D - Stenosis of other vascular prosthetic devices, implants and grafts, subsequent encounter Is this a current diagnosis for this admission?: Yes - Notes Notes: Congestive heart failure: Seems clinically improved with significant fluid removal on subsequent days on dialysis. 2D echo shows mildly depressed LVEF, diastolic dysfunction and some elements of pulmonary hypertension. Continue with salt and fluid restriction. Pericardial effusion: [place] to be moderate based on CT scan review. 2D echocardiogram shows mild to moderate pericardial effusion. No clinical evidence of pericardial tamponade noted. 2D echo was repeated. It showed pericardial effusion is still a [id number] in size but seems somewhat improved. No evidence of tamponade noted. Left pleural effusion: Possibly related to CHF. Thoracentesis performed. Results are now equivocal. End-stage renal disease: Patient on chronic hemodialysis therapy. Has been tolerating dialysis well. Next dialysis on Tuesday. Abdominal discomfort: seems to have improved. History of hemodialysis AV fistula: Currently is stable. We will continue to follow patient. Will repeat an EKG for tomorrow morning. - Time Time with patient: 15-25 minutes - CODE STATUS was discussed, patient remains full code. Surrogate decision-maker unchanged. Multiple medical problems were addressed. More than 50% of the time spent coordinating care, discussing management plans with involved caregivers. Management plans discussed with involved personnels. Medical decision making was of moderate to high complexity , patient's has multiple comorbidities. Medications reviewed and adjusted accordingly: Yes
[2017-09-17 15:34] LABS: HEMATOCRIT 26.8 % (36.0-47.0); HEMOGLOBIN 8.8 g/dL (12.0-15.5); MEAN CORPUSCULAR HEMOGLOBIN 33.7 pg (27.0-33.4); MEAN CORPUSCULAR HGB CONC 32.9 g/dL (32.0-36.0); MEAN CORPUSCULAR VOLUME 103 fl (80-97); PLATELET COUNT 124 10^3/uL (150-450); RED BLOOD COUNT 2.62 10^6/uL (3.72-5.28); RED CELL DISTRIBUTION WIDTH 16.8 % (11.5-14.0); WHITE BLOOD COUNT 4.7 10^3/uL (4.0-10.5)
[2017-09-17 15:39] LABS: ANION GAP 9 (5-19); BLOOD UREA NITROGEN 11 mg/dL (7-20); CALCIUM 8.3 mg/dL (8.4-10.2); CARBON DIOXIDE 31 mmol/L (22-30); CHLORIDE 99 mmol/L (98-107); GLUCOSE 123 mg/dL (75-110); POTASSIUM 3.7 mmol/L (3.6-5.0); SODIUM 139.3 mmol/L (137-145)
[2017-09-17 16:01] LABS: ABSOLUTE LYMPHOCYTES# (MANUAL) 0.9 10^3/uL (0.5-4.7); ABSOLUTE MONOCYTES # (MANUAL) 0.1 10^3/uL (0.1-1.4); ABSOLUTE NEUTROPHILS# (MANUAL) 2.9 10^3/uL (1.7-8.2); BASOPHILS % (MANUAL) 3 % (0-2); EOSINOPHILS % (MANUAL) 13 % (0-6); LYMPHOCYTES % (MANUAL) 20 % (13-45); MONOCYTES % (MANUAL) 2 % (3-13); SEGMENTED NEUTROPHILS % (MAN) 62 % (42-78); TOTAL CELLS COUNTED 100
[2017-09-17 16:03] LABS: ANISOCYTOSIS 1+; HYPOCHROMASIA SLIGHT; OVALOCYTES SLIGHT; PLATELET COMMENT ADEQUATE; POIKILOCYTOSIS SLIGHT
[2017-09-17] MEDS: INSULIN LISPRO 100 UNIT/ML 3 ML VIAL SUBCUT PRN (22:59)
[2017-09-17] MEDS: ATORVASTATIN CALCIUM 80 MG TABLET PO SCH (22:59)
[2017-09-18] MEDS: HEPARIN SOD (PORCINE) 5,000 UNIT/ML 1 ML SYRINGE SUBCUT SCH ×3 (05:29→23:17)
[2017-09-18] MEDS: LEVOTHYROXINE SODIUM 0.15 MG TABLET PO SCH (05:29)
[2017-09-18] MEDS: FUROSEMIDE INJ/PF 40 MG/4 ML SDV IV SCH ×2 (09:17→23:17)
--- NOTE | 2017-09-18 10:48 | EKG REPORT ---
SEVERITY:- NORMAL ECG - SINUS RHYTHM : Confirmed by: Kindra Cai 18-Sep-2017 10:47:30
--- NOTE | 2017-09-18 12:59 | PDOC PROGRESS REPORT ---
Subjective Progress Note for:: 09/18/17 Subjective:: She was seen by the bedside, symptoms improving Reason For Visit: CONGESTIVE HEART FAILURE ABDOMINAL PAIN LEFT SIDE Physical Exam Vital Signs: Temp Pulse Resp BP Pulse Ox 99.0 F 62 18 138/56 H 100 09/18/17 11:17 09/18/17 11:17 09/18/17 11:17 09/18/17 11:17 09/18/17 11:17 Intake & Output 09/17/17 09/18/17 09/19/17 05:59 06:59 06:59 Intake Total Output Total Balance Weight General appearance: PRESENT: no acute distress Eye exam: PRESENT: PERRLA Mouth exam: PRESENT: moist, tongue midline Respiratory exam: PRESENT: clear to auscultation debbie Cardiovascular exam: PRESENT: RRR, +S1, +S2 Pulses: PRESENT: normal dorsalis pedis pul, +2 pedal pulses bilateral Vascular exam: PRESENT: normal capillary refill GI/Abdominal exam: PRESENT: normal bowel sounds, soft Rectal exam: PRESENT: deferred Neurological exam: PRESENT: alert Psychiatric exam: PRESENT: appropriate affect, normal mood Skin exam: PRESENT: dry, intact, warm Results Laboratory Results: 09/17/17 15:03 09/17/17 15:03 09/17/17 09/17/17 15:03 15:03 WBC 4.7 RBC 2.62 L Hgb 8.8 L Hct 26.8 L MCV 103 H MCH 33.7 H MCHC 32.9 RDW 16.8 H Plt Count 124 L Seg Neutrophils % Not Reportable Lymphocytes % Not Reportable Monocytes % Not Reportable Eosinophils % Not Reportable Basophils % Not Reportable Absolute Neutrophils Not Reportable Absolute Lymphocytes Not Reportable Absolute Monocytes Not Reportable Absolute Eosinophils Not Reportable Absolute Basophils Not Reportable Sodium 139.3 Potassium 3.7 Chloride 99 Carbon Dioxide 31 H Anion Gap 9 BUN 11 Creatinine 5.52 H Est GFR ( Amer) 9 L Est GFR (Non-Af Amer) 7 L Glucose 123 H Calcium 8.3 L 09/13/17 15:12 Pleural Fluid Fungal Smear - Final 09/13/17 15:12 Pleural Fluid Fungal Smear - Final 09/13/17 15:12 Pleural Fluid Gram Stain - Final 09/13/17 15:12 Pleural Fluid Body Fluid Culture - Final NO AEROBIC OR ANAEROBIC ORGANISMS RECOVERED 09/10/17 09/10/1718 21:22 21:22 03:38 Creatine Kinase 109 106 CK-MB (CK-2) 1.49 Troponin I 0.028 NT-Pro-B Natriuret Pep 09/11/17 09/11/17 09/11/17 03:38 03:38 10:22 Creatine Kinase 106 CK-MB (CK-2) 1.48 Troponin I 0.023 NT-Pro-B Natriuret Pep 9740 H 09/11/17 09/12/17 09/13/17 10:22 05:45 05:10 Creatine Kinase CK-MB (CK-2) 1.36 Troponin I 0.029 NT-Pro-B Natriuret Pep 91085 H 72709 H Impressions: Abdomen/Pelvis CT 09/10/17 00:00 IMPRESSION: No acute findings in the abdomen or pelvis. Chest CT 09/10/17 00:00 IMPRESSION: Chronic left pleural effusion. Moderate pericardial effusion. Chest X-Ray 09/13/17 00:00 IMPRESSION: Small residual pleural effusion with no pneumothorax. Cardiac enlargement. Thoracentesis Ultrasound 09/13/17 20:46 IMPRESSION: SUCCESSFUL THORACENTESIS USING ULTRASOUNDan GUIDANCE. Assessment & Plan - Diagnosis (1) Pleural effusion, left Is this a current diagnosis for this admission?: Yes (2) Pulmonary hypertension Is this a current diagnosis for this admission?: Yes (3) Chronic diastolic (congestive) heart failure Is this a current diagnosis for this admission?: Yes (4) Pericardial effusion Is this a current diagnosis for this admission?: Yes
--- NOTE | 2017-09-18 14:23 | PDOC PROGRESS REPORT ---
Subjective Progress Note for:: 09/18/17 Subjective:: No new symptoms for this patient. She is resting comfortably. Patient's last dialysis was on Tuesday. Pt is denying any chest arm or neck discomfort. Patient denying any PND, orthopnea. Patient denied any sustained palpitations, dizziness, syncope, near syncope. Patient denying any fever chills. Patient denying any other significant discomfort. Patient seems to be tolerating dialysis better. 2D echo shows probable mildly decreased pericardial effusion. 2D echo results reviewed with the patient. Patient is maintaining sinus rhythm. Review of systems: Rest review of systems negative. Medications: Medications have been reviewed. Reason For Visit: CONGESTIVE HEART FAILURE ABDOMINAL PAIN LEFT SIDE Physical Exam Vital Signs: Temp Pulse Resp BP Pulse Ox 99.0 F 62 18 138/56 H 100 09/18/17 11:17 09/18/17 11:17 09/18/17 11:17 09/18/17 11:17 09/18/17 11:17 Intake & Output 09/17/17 09/18/17 09/19/17 05:59 06:59 06:59 Intake Total 237 Output Total 0 Balance 237 Weight Exam: GENERAL: well-nourished and in no acute distress. Alert and oriented x3 HEAD: Atraumatic, normocephalic. EYES: Dense cataract noted right eye, extraocular movements intact, sclera anicteric, conjunctiva are normal. ENT: TMs normal, nares patent, oropharynx clear without exudates. Moist mucous membranes. No oral ulcerations or bleeding gums noted NECK: supple without lymphadenopathy. Trachea is central. No cervical or axillary lymphadenopathy noted. Carotids are 2+, JVD WNL LUNGS: Respiration seems nonlabored, no significant accessory muscle action noted. Breath sounds clear to auscultation bilaterally and equal noted. No wheezes rales or rhonchi noted. No significant dullness noted on percussion. CHEST: Palpation of the chest wall shows no significant chest wall tenderness. No other significant abnormalities noted. 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 ABDOMEN: Soft, no significant tenderness appreciated, normoactive bowel sounds. No guarding, no rebound. No rigidity noted . No masses appreciated. EXTREMITIES: Pedal pulses are 1-2+, no calf tenderness noted. No clubbing or cyanosis.trace to 1+ pedal edema noted NEUROLOGICAL: Focused neurological exam showed no significant neurologic deficit. Normal speech, no focal weakness appreciated. PSYCH: Normal mood, normal affect. Judgment and insight within normal limits. SKIN: No significant ecchymosis, skin is noted to be warm. MUSCULOSKELETAL EXAM: No significant acute joint swelling noted. Results Laboratory Results: 09/17/17 15:03 09/17/17 15:03 09/17/17 09/17/17 15:03 15:03 WBC 4.7 RBC 2.62 L Hgb 8.8 L Hct 26.8 L MCV 103 H MCH 33.7 H MCHC 32.9 RDW 16.8 H Plt Count 124 L Seg Neutrophils % Not Reportable Lymphocytes % Not Reportable Monocytes % Not Reportable Eosinophils % Not Reportable Basophils % Not Reportable Absolute Neutrophils Not Reportable Absolute Lymphocytes Not Reportable Absolute Monocytes Not Reportable Absolute Eosinophils Not Reportable Absolute Basophils Not Reportable Sodium 139.3 Potassium 3.7 Chloride 99 Carbon Dioxide 31 H Anion Gap 9 BUN 11 Creatinine 5.52 H Est GFR ( Amer) 9 L Est GFR (Non-Af Amer) 7 L Glucose 123 H Calcium 8.3 L 09/13/17 15:12 Pleural Fluid Fungal Smear - Final 09/13/17 15:12 Pleural Fluid Fungal Smear - Final 09/13/17 15:12 Pleural Fluid Gram Stain - Final 09/13/17 15:12 Pleural Fluid Body Fluid Culture - Final NO AEROBIC OR ANAEROBIC ORGANISMS RECOVERED 09/10/17 09/10/17 09/11/17 21:22 21:22 03:38 Creatine Kinase 109 106 CK-MB (CK-2) 1.49 Troponin I 0.028 NT-Pro-B Natriuret Pep 09/11/17 09/11/17 09/11/17 03:38 03:38 10:22 Creatine Kinase 106 CK-MB (CK-2) 1.48 Troponin I 0.023 NT-Pro-B Natriuret Pep 9740 H 09/11/17 09/12/17 09/13/17 10:22 05:45 05:10 Creatine Kinase CK-MB (CK-2) 1.36 Troponin I 0.029 NT-Pro-B Natriuret Pep 90661 H 42544 H EKG Comments: Telemetry strips shows sinus rhythm. No significant cardiac dysrhythmias noted. Impressions: Abdomen/Pelvis CT 09/10/17 00:00 IMPRESSION: No acute findings in the abdomen or pelvis. Chest CT 09/10/17 00:00 IMPRESSION: Chronic left pleural effusion. Moderate pericardial effusion. Chest X-Ray 09/13/17 00:00 IMPRESSION: Small residual pleural effusion with no pneumothorax. Cardiac enlargement. Thoracentesis Ultrasound 09/13/17 20:46 IMPRESSION: SUCCESSFUL THORACENTESIS USING ULTRASOUNDan GUIDANCE. Assessment & Plan - Diagnosis (1) Congestive heart failure (CHF) Qualifiers: Heart failure type: diastolic Heart failure chronicity: unspecified Qualified Code(s): I50.30 - Unspecified diastolic (congestive) heart failure Is this a current diagnosis for this admission?: Yes (2) Pericardial effusion Is this a current diagnosis for this admission?: Yes (3) Pleural effusion, left Is this a current diagnosis for this admission?: Yes (4) End stage renal disease Is this a current diagnosis for this admission?: Yes (5) Abdominal discomfort Is this a current diagnosis for this admission?: Yes (6) Hemodialysis AV fistula stenosis Qualifiers: Encounter type: subsequent encounter Qualified Code(s): T82.858D - Stenosis of other vascular prosthetic devices, implants and grafts, subsequent encounter Is this a current diagnosis for this admission?: Yes - Notes Notes: Congestive heart failure: Seems clinically improved with significant fluid removal on subsequent days on dialysis. 2D echo shows mildly depressed LVEF, diastolic dysfunction and some elements of pulmonary hypertension. Continue with salt and fluid restriction. Will repeat a chest x-ray tomorrow. Pericardial effusion: [place] to be moderate based on CT scan review. 2D echocardiogram shows mild to moderate pericardial effusion. No clinical evidence of pericardial tamponade noted. 2D echo was repeated. It showed pericardial effusion is still a [id number]-[id number]-[id number] in size but seems somewhat improved. No evidence of tamponade noted. Left pleural effusion: Possibly related to CHF. Thoracentesis performed. Results are now equivocal. Will repeat a chest x-ray to look for any reaccumulation. End-stage renal disease: Patient on chronic hemodialysis therapy. Has been tolerating dialysis well. Next dialysis on Tuesday. Abdominal discomfort: seems to have improved. History of hemodialysis AV fistula: Currently is stable. We will continue to follow patient. EKG obtained this morning showed slightly improving QRS voltage. No acute ischemic changes noted. - Time Time with patient: 15-25 minutes - CODE STATUS was discussed, patient remains full code. Surrogate decision-maker unchanged. Multiple medical problems were addressed. More than 50% of the time spent coordinating care, discussing management plans with involved caregivers. Management plans discussed with involved personnels. Medical decision making was of moderate to high complexity , patient's has multiple comorbidities. Medications reviewed and adjusted accordingly: Yes
[2017-09-18] MEDS: INSULIN LISPRO 100 UNIT/ML 3 ML VIAL SUBCUT PRN (23:05)
[2017-09-18] MEDS: ATORVASTATIN CALCIUM 80 MG TABLET PO SCH (23:17)
[2017-09-19] MEDS: HEPARIN SOD (PORCINE) 5,000 UNIT/ML 1 ML SYRINGE SUBCUT SCH ×3 (05:52→23:04)
[2017-09-19] MEDS: LEVOTHYROXINE SODIUM 0.15 MG TABLET PO SCH (05:58)
[2017-09-19] MEDS ORDERED: EPOETIN ALFA INJ 20000 UNIT/1 ML VIAL (RENAL) IV PRN (07:38)
[2017-09-19] MEDS ORDERED: EPOETIN ALFA 10,000 UNIT in SYRINGE, DISPOSABLE, 1 EACH IV PRN (07:50)
--- NOTE | 2017-09-19 08:06 | RADIOLOGY REPORT (SQ) ---
EXAM DESCRIPTION: CHEST PA/LAT COMPLETED DATE/TIME: 09/19/2017 7:42 am REASON FOR STUDY: followup CHF, follow-up left pleural effusion COMPARISON: 09/13/2017. EXAM PARAMETERS: NUMBER OF VIEWS: two views TECHNIQUE: Digital Frontal and Lateral radiographic views of the chest acquired. RADIATION DOSE: NA LIMITATIONS: none FINDINGS: LUNGS AND PLEURA: Increasing left pleural effusion. Right lung relatively clear. MEDIASTINUM AND HILAR STRUCTURES: No masses or contour abnormalities. HEART AND VASCULAR STRUCTURES: Cardiomegaly unchanged BONES: No acute findings. HARDWARE: Surgical clips in the soft tissues of the left arm. OTHER: No other significant finding. IMPRESSION: CARDIOMEGALY. INCREASING LEFT PLEURAL EFFUSION. TECHNICAL DOCUMENTATION: JOB ID: [id number] [employer]- All Rights Reserved Reading location - IP/workstation name: [email or web address]
--- NOTE | 2017-09-19 11:39 | PDOC PROGRESS REPORT ---
Subjective Progress Note for:: 09/19/17 Reason For Visit: Seen on HD today.Undergoing Dialysis without any issues.She denies any chest pains, dyspnea, fever or chills.Labs and meds were reviewed with her.Orders were discussed with her treating HD RN. Physical Exam Vital Signs: Temp Pulse Resp BP Pulse Ox 98.3 F 64 16 156/61 H 100 09/19/17 07:05 09/19/17 07:05 09/19/17 07:05 09/19/17 07:05 09/19/17 07:05 Intake & Output 09/18/17 09/19/17 09/20/17 06:59 06:59 06:59 Intake Total 1134 Output Total 0 Balance 1134 Weight 64.5 kg General appearance: PRESENT: no acute distress Respiratory exam: PRESENT: clear to auscultation debbie. ABSENT: crackles, rhonchi Cardiovascular exam: PRESENT: +S1, +S2, systolic murmur. ABSENT: rubs GI/Abdominal exam: PRESENT: normal bowel sounds, soft. ABSENT: distended, organomegaly, tenderness Extremities exam: PRESENT: pedal edema Neurological exam: PRESENT: alert, awake, oriented to person, oriented to place Results Laboratory Results: 09/17/17 15:03 09/17/17 15:03 09/10/17 09/10/17 09/11/17 21:22 21:22 03:38 Creatine Kinase 109 106 CK-MB (CK-2) 1.49 Troponin I 0.028 NT-Pro-B Natriuret Pep 09/11/17 09/11/17 09/11/17 03:38 03:38 10:22 Creatine Kinase 106 CK-MB (CK-2) 1.48 Troponin I 0.023 NT-Pro-B Natriuret Pep 9740 H 09/11/17 09/12/17 09/13/17 10:22 05:45 05:10 Creatine Kinase CK-MB (CK-2) 1.36 Troponin I 0.029 NT-Pro-B Natriuret Pep 12125 H 74046 H Impressions: Abdomen/Pelvis CT 09/10/17 00:00 IMPRESSION: No acute findings in the abdomen or pelvis. Chest CT 09/10/17 00:00 IMPRESSION: Chronic left pleural effusion. Moderate pericardial effusion. Thoracentesis Ultrasound 09/13/17 20:46 IMPRESSION: SUCCESSFUL THORACENTESIS USING ULTRASOUNDan GUIDANCE. Chest X-Ray 09/19/17 07:24 IMPRESSION: CARDIOMEGALY. INCREASING LEFT PLEURAL EFFUSION. Assessment & Plan - Diagnosis (1) Hemodialysis access site with mature fistula Plan: She was seen on dialysis today. Its being supervised to ensure a safe and smooth procedure. Undergoing dialysis without issues. No objective evidence of pericardial tamponade. Orders were discussed with the treating microbiology technician. . (2) Pericardial effusion Is this a current diagnosis for this admission?: Yes Plan: Moderate. No evidence of Tamponade. Plan for daily dialysis treatment without any heparin. (3) Hypertension Plan: Stable. (4) Abdominal discomfort Is this a current diagnosis for this admission?: Yes (5) Congestive heart failure (CHF) Qualifiers: Heart failure type: diastolic Heart failure chronicity: unspecified Qualified Code(s): I50.30 - Unspecified diastolic (congestive) heart failure Is this a current diagnosis for this admission?: Yes Plan: Mildly reduced LVEF and diastolic failure with additional moderate Pulmonary hypertension.Stable. (6) End stage renal disease Is this a current diagnosis for this admission?: Yes Plan: On HD. (7) Pleural effusion, left Is this a current diagnosis for this admission?: Yes Plan: S/P Thoracentesis and she is feeling better.
[2017-09-19] MEDS: FUROSEMIDE INJ/PF 40 MG/4 ML SDV IV SCH ×2 (13:18→23:05)
[2017-09-19 14:44] LABS: HEMATOCRIT 31.8 % (36.0-47.0); HEMOGLOBIN 10.6 g/dL (12.0-15.5); MEAN CORPUSCULAR HEMOGLOBIN 34.1 pg (27.0-33.4); MEAN CORPUSCULAR HGB CONC 33.2 g/dL (32.0-36.0); MEAN CORPUSCULAR VOLUME 103 fl (80-97); PLATELET COUNT 150 10^3/uL (150-450); RED CELL DISTRIBUTION WIDTH 16.3 % (11.5-14.0); WHITE BLOOD COUNT 4.6 10^3/uL (4.0-10.5)
[2017-09-19 15:05] LABS: ANION GAP 12 (5-19); BLOOD UREA NITROGEN 12 mg/dL (7-20); CALCIUM 8.7 mg/dL (8.4-10.2); CARBON DIOXIDE 31 mmol/L (22-30); CHLORIDE 97 mmol/L (98-107); GLUCOSE 133 mg/dL (75-110); POTASSIUM 3.7 mmol/L (3.6-5.0); SODIUM 140.2 mmol/L (137-145)
--- NOTE | 2017-09-19 20:05 | PDOC PROGRESS REPORT ---
Subjective Progress Note for:: 09/19/17 Subjective:: Patient was seen on dialysis today. She looked comfortable. Chest x-ray apparently showed increased left pleural effusion. Pt is denying any chest arm or neck discomfort. Patient denying any PND, orthopnea. Patient denied any sustained palpitations, dizziness, syncope, near syncope. Patient denying any fever chills. Patient denying any other significant discomfort. Patient seems to be tolerating dialysis better. 2D echo shows probable mildly decreased pericardial effusion. 2D echo results reviewed with the patient. Patient is maintaining sinus rhythm. Review of systems: Rest review of systems negative. Medications: Medications have been reviewed. Reason For Visit: CONGESTIVE HEART FAILURE ABDOMINAL PAIN LEFT SIDE Physical Exam Vital Signs: Temp Pulse Resp BP Pulse Ox 98.1 F 67 16 146/51 H 96 09/19/17 15:20 09/19/17 16:42 09/19/17 16:42 09/19/17 15:20 09/19/17 16:42 Intake & Output 09/18/17 09/19/17 09/20/17 06:59 06:59 06:59 Intake Total 1134 130 Output Total 0 0 Balance 1134 130 Weight 64.5 kg Exam: GENERAL: well-nourished and in no acute distress. Alert and oriented x3 HEAD: Atraumatic, normocephalic. EYES: Dense cataract noted right eye extraocular movements intact, sclera anicteric, conjunctiva are normal. ENT: TMs normal, nares patent, oropharynx clear without exudates. Moist mucous membranes. No oral ulcerations or bleeding gums noted NECK: supple without lymphadenopathy. Trachea is central. No cervical or axillary lymphadenopathy noted. Carotids are 2+, JVD WNL LUNGS: Respiration seems nonlabored, no significant accessory muscle action noted. Breath sounds clear to auscultation bilaterally and equal noted. No wheezes rales or rhonchi noted. Mild dullness noted left base. CHEST: Palpation of the chest wall shows no significant chest wall tenderness. No other significant abnormalities noted. 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 ABDOMEN: Soft, no significant tenderness appreciated, normoactive bowel sounds. No guarding, no rebound. No rigidity noted . No masses appreciated. EXTREMITIES: Pedal pulses are 1-2+, no calf tenderness noted. No clubbing or cyanosis.trace to 1+ pedal edema noted NEUROLOGICAL: Focused neurological exam showed no significant neurologic deficit. Normal speech, no focal weakness appreciated. PSYCH: Normal mood, normal affect. Judgment and insight within normal limits. SKIN: No significant ecchymosis, skin is noted to be warm. MUSCULOSKELETAL EXAM: No significant acute joint swelling noted. Results Laboratory Results: 09/19/17 14:20 09/19/17 14:20 09/19/17 09/19/17 14:20 14:20 WBC 4.6 RBC 3.10 L Hgb 10.6 L Hct 31.8 L MCV 103 H MCH 34.1 H MCHC 33.2 RDW 16.3 H Plt Count 150 Sodium 140.2 Potassium 3.7 Chloride 97 L Carbon Dioxide 31 H Anion Gap 12 BUN 12 Creatinine 5.19 H Est GFR ( Amer) 10 L Est GFR (Non-Af Amer) 8 L Glucose 133 H Calcium 8.7 09/10/17 09/10/17 09/11/17 21:22 21:22 03:38 Creatine Kinase 109 106 CK-MB (CK-2) 1.49 Troponin I 0.028 NT-Pro-B Natriuret Pep 09/11/17 09/11/17 09/11/17 03:38 03:38 10:22 Creatine Kinase 106 CK-MB (CK-2) 1.48 Troponin I 0.023 NT-Pro-B Natriuret Pep 9740 H 09/11/17 09/12/17 09/13/17 10:22 05:45 05:10 Creatine Kinase CK-MB (CK-2) 1.36 Troponin I 0.029 NT-Pro-B Natriuret Pep 07111 H 55579 H EKG Comments: Sinus rhythm noted. Impressions: Abdomen/Pelvis CT 09/10/17 00:00 IMPRESSION: No acute findings in the abdomen or pelvis. Chest CT 09/10/17 00:00 IMPRESSION: Chronic left pleural effusion. Moderate pericardial effusion. Thoracentesis Ultrasound 09/13/17 20:46 IMPRESSION: SUCCESSFUL THORACENTESIS USING ULTRASOUNDan GUIDANCE. Chest X-Ray 09/19/17 07:24 IMPRESSION: CARDIOMEGALY. INCREASING LEFT PLEURAL EFFUSION. Assessment & Plan - Diagnosis (1) Congestive heart failure (CHF) Qualifiers: Heart failure type: diastolic Heart failure chronicity: unspecified Qualified Code(s): I50.30 - Unspecified diastolic (congestive) heart failure Is this a current diagnosis for this admission?: Yes (2) Pericardial effusion Is this a current diagnosis for this admission?: Yes (3) Pleural effusion, left Is this a current diagnosis for this admission?: Yes (4) End stage renal disease Is this a current diagnosis for this admission?: Yes (5) Abdominal discomfort Is this a current diagnosis for this admission?: Yes (6) Hemodialysis AV fistula stenosis Qualifiers: Encounter type: subsequent encounter Qualified Code(s): T82.858D - Stenosis of other vascular prosthetic devices, implants and grafts, subsequent encounter Is this a current diagnosis for this admission?: Yes - Notes Notes: Congestive heart failure: Related to diastolic dysfunction. 2D echo shows mildly depressed LVEF, diastolic dysfunction and some elements of pulmonary hypertension. Continue with salt and fluid restriction. Chest x-ray shows increasing left pleural effusion. Pericardial effusion: Many to be moderate based on CT scan review. 2D echocardiogram shows mild to moderate pericardial effusion. No clinical evidence of pericardial tamponade noted. 2D echo was repeated. It showed pericardial effusion is still a doxgl-we-fkgefqxa in size but seems somewhat improved. No evidence of tamponade noted. Left pleural effusion: Possibly related to CHF. Thoracentesis performed. Results are now equivocal. May consider repeat thoracentesis and repeat evaluation of pleural fluid aspirate. End-stage renal disease: Patient on chronic hemodialysis therapy. Has been tolerating dialysis well. Abdominal discomfort: seems to have improved. History of hemodialysis AV fistula: Currently is stable. We will continue to follow patient. - Time Time with patient: 15-25 minutes - CODE STATUS was discussed, patient remains full code. Surrogate decision-maker unchanged. Multiple medical problems were addressed. More than 50% of the time spent coordinating care, discussing management plans with involved caregivers. Management plans discussed with involved personnels. Medical decision making was of moderate to high complexity , patient's has multiple comorbidities. Medications reviewed and adjusted accordingly: Yes
--- NOTE | 2017-09-19 20:42 | PDOC DISCHARGE SUMMARY ---
General - Admit/Disc Date/PCP Admission Date/Primary Care Provider: 09/10/17 10:05 Discharge Date: 09/19/17 - Discharge Diagnosis (1) Pleural effusion, left Is this a current diagnosis for this admission?: Yes (2) Pulmonary hypertension Is this a current diagnosis for this admission?: Yes (3) Chronic diastolic (congestive) heart failure Is this a current diagnosis for this admission?: Yes (4) Pericardial effusion Is this a current diagnosis for this admission?: Yes - Additional Information Resuscitation Status: Full Code Home Medications: Atorvastatin Calcium [Lipitor 80 mg Tablet] 80 mg PO DAILY 09/10/17 Levothyroxine Sodium [Synthroid] 150 mcg PO DAILY 09/10/17 History of Present Illness History of Present Illness: LOVELY ESPAÑA is a 76 year old female,She was admitted when she presented with vague abdominal symptoms, CT of the chest was done that suggest pericardial effusion and pleural effusion Hospital Course Hospital Course: She has end-stage renal disease on maintenance hemodialysis, she was seen by food quality technician Dr. Cruz Mendez she underwent daily hemodialysis in the hospital. The CAT scan of the chest that was done suggest pericardial effusion , she was seen by Dr. Cai, cardiology, 2D echo was done, it showed mild to moderate pericardial effusion with no evidence of cardiac tamponade. She was treated daily with hemodialysis, she also had thoracentesis of the pleural fluid , 700 cc of fluid was removed from the left chest cavity the analysis of the fluid was equivocal could not tell if it was exudative or transudate. Patient' s symptoms improve with daily hemodialysis, the plan is to be discharged home to continue same treatment modality Physical Exam Vital Signs: Temp Pulse Resp BP Pulse Ox 98.1 F 67 16 146/51 H 96 09/19/17 15:20 09/19/17 16:42 09/19/17 16:42 09/19/17 15:20 09/19/17 16:42 Intake & Output 09/18/17 09/19/17 09/20/17 06:59 06:59 06:59 Intake Total 1134 130 Output Total 0 0 Balance 1134 130 Weight 64.5 kg General appearance: PRESENT: no acute distress Ear exam: PRESENT: normal external ear exam Mouth exam: PRESENT: moist, tongue midline Neck exam: PRESENT: full ROM Respiratory exam: PRESENT: clear to auscultation debbie Cardiovascular exam: PRESENT: RRR, +S1, +S2 Pulses: PRESENT: normal dorsalis pedis pul, +2 pedal pulses bilateral Vascular exam: PRESENT: normal capillary refill GI/Abdominal exam: PRESENT: normal bowel sounds, soft Rectal exam: PRESENT: deferred Neurological exam: PRESENT: alert Psychiatric exam: PRESENT: appropriate affect, normal mood Skin exam: PRESENT: dry, intact, warm Results Laboratory Results: 09/19/17 14:20 09/19/17 14:20 09/19/17 09/19/17 14:20 14:20 WBC 4.6 RBC 3.10 L Hgb 10.6 L Hct 31.8 L MCV 103 H MCH 34.1 H MCHC 33.2 RDW 16.3 H Plt Count 150 Sodium 140.2 Potassium 3.7 Chloride 97 L Carbon Dioxide 31 H Anion Gap 12 BUN 12 Creatinine 5.19 H Est GFR ( Amer) 10 L Est GFR (Non-Af Amer) 8 L Glucose 133 H Calcium 8.7 09/10/17 09/10/17 09/11/17 21:22 21:22 03:38 Creatine Kinase 109 106 CK-MB (CK-2) 1.49 Troponin I 0.028 NT-Pro-B Natriuret Pep 09/11/17 09/11/17 09/11/17 03:38 03:38 10:22 Creatine Kinase 106 CK-MB (CK-2) 1.48 Troponin I 0.023 NT-Pro-B Natriuret Pep 9740 H 09/11/17 09/12/17 09/13/17 10:22 05:45 05:10 Creatine Kinase CK-MB (CK-2) 1.36 Troponin I 0.029 NT-Pro-B Natriuret Pep 10222 H 68392 H Impressions: Abdomen/Pelvis CT 09/10/17 00:00 IMPRESSION: No acute findings in the abdomen or pelvis. Chest CT 09/10/17 00:00 IMPRESSION: Chronic left pleural effusion. Moderate pericardial effusion. Thoracentesis Ultrasound 09/13/17 20:46 IMPRESSION: SUCCESSFUL THORACENTESIS USING ULTRASOUNDan GUIDANCE. Chest X-Ray 09/19/17 07:24 IMPRESSION: CARDIOMEGALY. INCREASING LEFT PLEURAL EFFUSION. Qualifiers - * PATEINT BEING DISCHARGED WITH ANY OF THE FOLLOWING DIAGNOSIS?: No VTE patient discharged on overlapping Therapy?: Yes
[2017-09-19] MEDS: ATORVASTATIN CALCIUM 80 MG TABLET PO SCH (23:04)
[2017-09-20] MEDS: LEVOTHYROXINE SODIUM 0.15 MG TABLET PO SCH (05:34)
[2017-09-20] MEDS: HEPARIN SOD (PORCINE) 5,000 UNIT/ML 1 ML SYRINGE SUBCUT SCH (05:34)
[2017-09-20 09:49] VITALS: BP 149/60
--- NOTE | 2017-09-21 09:28 | PDOC PROGRESS REPORT ---
Subjective Progress Note for:: 09/20/17 Subjective:: Patient seen on morning rounds. She looked comfortable. Pt is denying any chest arm or neck discomfort. Patient denying any PND, orthopnea. Patient denied any sustained palpitations, dizziness, syncope, near syncope. Patient denying any fever chills. Patient denying any other significant discomfort. 2D echo shows probable mildly decreased pericardial effusion. 2D echo results reviewed with the patient. Patient is maintaining sinus rhythm. Review of systems: Rest review of systems negative. Medications: Medications have been reviewed. Reason For Visit: CONGESTIVE HEART FAILURE ABDOMINAL PAIN LEFT SIDE Physical Exam Vital Signs: Temp Pulse Resp BP Pulse Ox 98.9 F 62 18 149/60 H 100 09/20/17 09:47 09/20/17 09:47 09/20/17 09:47 09/20/17 09:47 09/20/17 09:47 Intake & Output 09/19/17 09/20/17 09/21/17 06:59 06:59 06:59 Intake Total 1134 140 Output Total 0 0 Balance 1134 140 Weight 64.5 kg 62.6 kg Exam: GENERAL: well-nourished and in no acute distress. Alert and oriented x3 HEAD: Atraumatic, normocephalic. EYES: Dense cataract noted right eye., extraocular movements intact, sclera anicteric, conjunctiva are normal. ENT: TMs normal, nares patent, oropharynx clear without exudates. Moist mucous membranes. No oral ulcerations or bleeding gums noted NECK: supple without lymphadenopathy. Trachea is central. No cervical or axillary lymphadenopathy noted. Carotids are 2+, JVD WNL LUNGS: Respiration seems nonlabored, no significant accessory muscle action noted. Breath sounds clear to auscultation bilaterally and equal noted. No wheezes rales or rhonchi noted. Slight left basal dullness noted.. CHEST: Palpation of the chest wall shows no significant chest wall tenderness. No other significant abnormalities noted. 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 ABDOMEN: Soft, no significant tenderness appreciated, normoactive bowel sounds. No guarding, no rebound. No rigidity noted . No masses appreciated. EXTREMITIES: Pedal pulses are 1-2+, no calf tenderness noted. No clubbing or cyanosis.trace to 1+ pedal edema noted NEUROLOGICAL: Focused neurological exam showed no significant neurologic deficit. Normal speech, no focal weakness appreciated. PSYCH: Normal mood, normal affect. Judgment and insight within normal limits. SKIN: No significant ecchymosis, skin is noted to be warm. MUSCULOSKELETAL EXAM: No significant acute joint swelling noted. Results Laboratory Results: 09/19/17 14:20 09/19/17 14:20 09/10/17 09/10/17 09/11/17 21:22 21:22 03:38 Creatine Kinase 109 106 CK-MB (CK-2) 1.49 Troponin I 0.028 NT-Pro-B Natriuret Pep 09/11/17 09/11/17 09/11/17 03:38 03:38 10:22 Creatine Kinase 106 CK-MB (CK-2) 1.48 Troponin I 0.023 NT-Pro-B Natriuret Pep 9740 H 09/11/17 09/12/17 09/13/17 10:22 05:45 05:10 Creatine Kinase CK-MB (CK-2) 1.36 Troponin I 0.029 NT-Pro-B Natriuret Pep 35901 H 33607 H EKG Comments: Telemetry shows sinus rhythm without any sustained tachycardia or bradycardia. Impressions: Abdomen/Pelvis CT 09/10/17 00:00 IMPRESSION: No acute findings in the abdomen or pelvis. Chest CT 09/10/17 00:00 IMPRESSION: Chronic left pleural effusion. Moderate pericardial effusion. Thoracentesis Ultrasound 09/13/17 20:46 IMPRESSION: SUCCESSFUL THORACENTESIS USING ULTRASOUNDan GUIDANCE. Chest X-Ray 09/19/17 07:24 IMPRESSION: CARDIOMEGALY. INCREASING LEFT PLEURAL EFFUSION. Assessment & Plan - Diagnosis (1) Congestive heart failure (CHF) Qualifiers: Heart failure type: diastolic Heart failure chronicity: unspecified Qualified Code(s): I50.30 - Unspecified diastolic (congestive) heart failure Is this a current diagnosis for this admission?: Yes (2) Pericardial effusion Is this a current diagnosis for this admission?: Yes (3) Pleural effusion, left Is this a current diagnosis for this admission?: Yes (4) End stage renal disease Is this a current diagnosis for this admission?: Yes (5) Abdominal discomfort Is this a current diagnosis for this admission?: Yes (6) Hemodialysis AV fistula stenosis Qualifiers: Encounter type: subsequent encounter Qualified Code(s): T82.858D - Stenosis of other vascular prosthetic devices, implants and grafts, subsequent encounter Is this a current diagnosis for this admission?: Yes - Notes Notes: Congestive heart failure: Related to diastolic dysfunction. 2D echo shows mildly depressed LVEF, diastolic dysfunction and some elements of pulmonary hypertension. Continue with salt and fluid restriction. Patient advised on not gaining too much weight in between dialysis. Continue to remove fluid on dialysis to dry weight.. Pericardial effusion: [place] to be moderate based on CT scan review. 2D echocardiogram shows mild to moderate pericardial effusion. No clinical evidence of pericardial tamponade noted. 2D echo was repeated. It showed pericardial effusion is still a zccfl-kz-qyjjulwj in size but seems somewhat improved. No evidence of tamponade noted. Recommend repeating the echocardiogram in about 2 weeks. Left pleural effusion: Possibly related to CHF. Thoracentesis performed. Clinically most likely related to CHF. End-stage renal disease: Patient on chronic hemodialysis therapy. Has been tolerating dialysis well. Abdominal discomfort: Resolved. We will continue to follow patient. - Time Time with patient: 15-25 minutes - Patient ready for discharge. Will follow patient in the office for following up regarding pericardial effusion and CHF therapy. Patient given my card. Medications reviewed and adjusted accordingly: Yes
== END 2017-09-20 10:15 | disposition home health service (06) | DRG 291 ==
LOC: ER 04:57 → EH 10:05 → 3W 19:55
PROVIDERS: ADMIT Internal Medicine; ATTEND Internal Medicine
PROC: 5A1D70Z Performance of Urinary Filtration, Intermittent, Less than 6 Hours Per Day (ICD-10-PCS; 2017-09-12)
PROC: 0W9B3ZX Drainage of Left Pleural Cavity, Percutaneous Approach, Diagnostic (ICD-10-PCS; principal; 2017-09-13)
PROC: 5A1D70Z Performance of Urinary Filtration, Intermittent, Less than 6 Hours Per Day (ICD-10-PCS; 2017-09-13)
PROC: 5A1D70Z Performance of Urinary Filtration, Intermittent, Less than 6 Hours Per Day (ICD-10-PCS; 2017-09-14)
PROC: 5A1D70Z Performance of Urinary Filtration, Intermittent, Less than 6 Hours Per Day (ICD-10-PCS; 2017-09-15)
PROC: 5A1D70Z Performance of Urinary Filtration, Intermittent, Less than 6 Hours Per Day (ICD-10-PCS; 2017-09-16)
PROC: 5A1D70Z Performance of Urinary Filtration, Intermittent, Less than 6 Hours Per Day (ICD-10-PCS; 2017-09-19)
DX: I13.2 Hypertensive heart and chronic kidney disease with heart failure and with stage 5 chronic kidney disease, or end stage renal disease (principal); N18.6 End stage renal disease; J91.8 Pleural effusion in other conditions classified elsewhere; I31.3 Pericardial effusion (noninflammatory); I50.32 Chronic diastolic (congestive) heart failure; N25.81 Secondary hyperparathyroidism of renal origin; I27.20 Pulmonary hypertension, unspecified; E11.22 Type 2 diabetes mellitus with diabetic chronic kidney disease; E78.00 Pure hypercholesterolemia, unspecified; E03.9 Hypothyroidism, unspecified; M19.90 Unspecified osteoarthritis, unspecified site; D63.1 Anemia in chronic kidney disease; I25.10 Atherosclerotic heart disease of native coronary artery without angina pectoris; I34.0 Nonrheumatic mitral (valve) insufficiency; B95.4 Other streptococcus as the cause of diseases classified elsewhere; R00.1 Bradycardia, unspecified; H26.9 Unspecified cataract; Z99.2 Dependence on renal dialysis; Z86.73 Personal history of transient ischemic attack (TIA), and cerebral infarction without residual deficits; T82.858D Stenosis of other vascular prosthetic devices, implants and grafts, subsequent encounter; I25.2 Old myocardial infarction; Z91.11 Patient's noncompliance with dietary regimen; Z91.14 Patient's other noncompliance with medication regimen; Z90.49 Acquired absence of other specified parts of digestive tract; Z79.899 Other long term (current) drug therapy; Z82.49 Family history of ischemic heart disease and other diseases of the circulatory system; Z84.1 Family history of disorders of kidney and ureter
CPT/HCPCS: 32555; 36415; 71045; 71046; 71250; 74176; 80048; 80053; 82550; 82553; 82945; 82962; 83615; 83690; 83735; 83880; 84155; 84157; 84484; 85025; 85027; 85610; 85730; 87015; 87040; 87070; 87075; 87077; 87101; 87116; 87186; 87205; 87206; 87252; 88305; 89050; 93005; 93010; 93306; 93321; 94640; 99285; J0696; J1644; J1815; J1940; J2405; J3490; J7620; Q4081

== ENCOUNTER 2018-03-06 16:00 | Emergency (ER) | payer MEDICARE ==
--- NOTE | 2018-03-06 16:57 | ER Document Report ---
ED Dialysis Cath/Shunt Problem - General Chief Complaint: Dialysis Shunt Problem Stated Complaint: BLEEDING FROM FISTULA Time Seen by Provider: 03/06/18 16:36 Information source: Patient Notes: Patient is a 77-year-old female who completed dialysis today with some continued bleeding from the dialysis access site at her left distal humeral region. Patient denies any chest pain, shortness of breath, vomiting, or fevers. Her last instrumentation to the site was in April according to the patient. Patient was sent here for the bleeding. TRAVEL OUTSIDE OF THE [place] IN LAST 30 DAYS: No - HPI Onset: Just prior to arrival Onset/Duration: Gradual Quality of pain: No pain Severity: Mild Pain Level: Denies AV Fistula Assessment: Thrill Palpated, Bruit Auscultated, Dressing Intact Hemo-Dialysis Treatment Today: Yes Associated symptoms: Other - See above Exacerbated by: Denies Relieved by: Denies Similar symptoms previously: Yes Recently seen / treated by doctor: Yes - Related Data Allergies/Adverse Reactions: adhesive tape Allergy (Intermediate, Verified 08/23/17 10:21) Generalized rash Past Medical History - General Information source: Patient - Social History Smoking Status: Unknown if Ever Smoked Cigarette use (# per day): No Chew tobacco use (# tins/day): No Family History: CAD, Hypertension, Other - Kidney disease - Past Medical History Cardiac Medical History: Reports: Hx Heart Attack - 2017, Hx Hypercholesterolemia, Hx Hypertension Denies: Hx Coronary Artery Disease Pulmonary Medical History: Denies: Hx Asthma, Hx Bronchitis, Hx COPD, Hx Pneumonia, Hx Tuberculosis Neurological Medical History: Reports: Hx Cerebrovascular Accident - 2009. Denies: Hx Seizures Endocrine Medical History: Reports: Hx Diabetes Mellitus Type 2, Hx Hypothyroidism Renal/ Medical History: Reports: Hx End Stage Renal Disease. Denies: Hx Peritoneal Dialysis Musculoskeletal Medical History: Reports Hx Arthritis Past Surgical History: Reports: Hx Cardiac Catheterization - Possible cardiac catheterization with stent placement. Records are pending, Hx Cholecystectomy. Denies: Hx Pacemaker - Immunizations Hx Diphtheria, Pertussis, Tetanus Vaccination: No Hx Pneumococcal Vaccination: 04/19/12 Physical Exam - Vital signs Notes: Reviewed vital signs and nursing note as charted by RN. CONSTITUTIONAL: Alert and oriented and responds appropriately to questions. Well -appearing; well-nourished HEAD: Normocephalic; atraumatic EYES: PERRL ENT: Normal nose; no rhinorrhea; moist mucous membranes; pharynx without lesions noted NECK: Supple without meningismus; non-tender CARD: Regular rate and rhythm; no murmurs RESP: Normal chest excursion without splinting or tachypnea; breath sounds clear and equal bilaterally EXT: Patient has a clamp and 4 x 4's to the bleeding access site. I gently removed the clamp. We monitored the patient for 20 minutes and there is no bleeding through the cotton swab SKIN: See above NEURO: Moves all extremities equally; Motor and sensory function intact PSYCH: The patient's mood and manner are appropriate. Grooming and personal hygiene are appropriate. Course - Re-evaluation Re-evalutation: 03/06/18 16:55 Patient has had no bleeding for 15 minute. Patient denies any other complaints. Patient completed dialysis today. I called and spoke to Dr. Ronaldo Gomez, the vascular surgeon. He agrees with discharge and will follow up with the patient with a scheduled angiogram for the fistula. I would not remove the small cotton ball covering the bleeding access site given that I do not want to remove any obvious scab that has been formed. Patient does appear to have one bed bug found. I was not able to locate any others. 03/06/18 16:59 I called and spoke to the daughter who states that she is aware of the bed bugs and is actively being treated. Discharge - Discharge Clinical Impression: Hemorrhage of surgically-created arteriovenous fistula Qualifiers: Encounter type: initial encounter Qualified Code(s): T82.838A - Hemorrhage due to vascular prosthetic devices, implants and grafts, initial encounter Condition: Good Disposition: HOME, SELF-CARE Additional Instructions: Come back immediately for any return of bleeding from the site, arm swelling or pain, or any other acute problems. Please follow-up with Dr. Ronaldo Gomez for reassessment of your fistula as we have discussed.
[2018-03-06 18:31] VITALS: BP 167/69
== END 2018-03-06 17:30 | disposition home or self-care (01) ==
LOC: ER 16:00
DX: T82.838A Hemorrhage due to vascular prosthetic devices, implants and grafts, initial encounter (principal); Y84.1 Kidney dialysis as the cause of abnormal reaction of the patient, or of later complication, without mention of misadventure at the time of the procedure; E78.00 Pure hypercholesterolemia, unspecified; E11.22 Type 2 diabetes mellitus with diabetic chronic kidney disease; I12.0 Hypertensive chronic kidney disease with stage 5 chronic kidney disease or end stage renal disease; N18.6 End stage renal disease; I25.2 Old myocardial infarction; Z86.73 Personal history of transient ischemic attack (TIA), and cerebral infarction without residual deficits
CPT/HCPCS: 99283

== ENCOUNTER 2018-03-09 07:56 | Day surgery (SDC) | payer MEDICARE ==
[2018-03-09] MEDS ORDERED: LIDOCAINE 0.5% INJ-PF (5 MG/ML) 50 ML SDV ONE (08:40)
[2018-03-09] MEDS ORDERED: MIDAZOLAM 2 MG/2 ML INJ ONE (08:40)
[2018-03-09] MEDS ORDERED: HEPARIN SOD (PORCINE) 5,000 UNIT/ML 1 ML SYRINGE ONE (08:41)
[2018-03-09] MEDS ORDERED: FENTANYL CITRATE INJ/PF 100 MCG/2 ML AMPUL ONE (08:41)
[2018-03-09 08:52] LABS: HEMOGLOBIN 10.6 g/dL (12.0-15.5); MEAN CORPUSCULAR HEMOGLOBIN 33.1 pg (27.0-33.4); MEAN CORPUSCULAR VOLUME 100 fl (80-97); PLATELET COUNT 254 10^3/uL (150-450); RED CELL DISTRIBUTION WIDTH 16.8 % (11.5-14.0); WHITE BLOOD COUNT 4.4 10^3/uL (4.0-10.5)
[2018-03-09 09:04] LABS: ANION GAP 12 (5-19); BLOOD UREA NITROGEN 11 mg/dL (7-20); CALCIUM 8.8 mg/dL (8.4-10.2); CARBON DIOXIDE 31 mmol/L (22-30); CHLORIDE 100 mmol/L (98-107); GLUCOSE 88 mg/dL (75-110); POTASSIUM 3.5 mmol/L (3.6-5.0); SODIUM 143.2 mmol/L (137-145)
--- NOTE | 2018-03-09 10:39 | RADIOLOGY REPORT (SQ) ---
EXAM DESCRIPTION: FISTULAGRAM W/PLASTY COMPLETED DATE/TIME: 03/09/2018 10:30 am REASON FOR STUDY: T82.858A T82.858A STENOSIS OF OTHER VASCULAR PROSTH DEV/GRFT, INIT COMPARISON: 08/23/2017 FLUOROSCOPY TIME: 1.8 minutes 91 images saved to PACS. TECHNIQUE: Intra-operative images acquired during surgical procedure to evaluate progress. NUMBER OF IMAGES: Intra procedural imaging with cine fluoro LIMITATIONS: None. FINDINGS: Intra procedural imaging and fluoro during evaluation and plasty of a left upper extremity dialysis graft by Dr. Bradshaw. Please see the operative report for further details IMPRESSION: Intra procedural imaging and fluoro COMMENT: Quality ID [id number]: Final reports for procedures using fluoroscopy that document radiation exp osure indices, or exposure time and number of fluorographic images (if radiation exposure indices are not available) Please consult full operative report of the attending physician for description of the procedure. TECHNICAL DOCUMENTATION: JOB ID: [id number] [employer]- All Rights Reserved Reading location - IP/workstation name: [email or web address]
--- NOTE | 2018-03-09 10:49 | PDOC H&P ---
General Chief Complaint: The patient has been referred across for management of arteriovenous fistula, access. Excessive bleeding has been noted after hemodialysis. - Current Medications/Allergies Home Medications: Atorvastatin Calcium [Lipitor 80 mg Tablet] 80 mg PO DAILY 09/10/17 Levothyroxine Sodium [Synthroid] 150 mcg PO DAILY 09/10/17 Allergies/Adverse Reactions: adhesive tape Allergy (Intermediate, Verified 08/23/17 10:21) Generalized rash Past Medical History Cardiac Medical History: Reports: Myocardial Infarction - 2017, Hyperlipidema, Hypertension Denies: Coronary Artery Disease Pulmonary Medical History: Denies: Asthma, Bronchitis, Chronic Obstructive Pulmonary Disease (COPD), Pneumonia, Tuberculosis Neurological Medical History: Denies: Seizures Endocrine Medical History: Reports: Diabetes Mellitus Type 2, Hypothyroidism Renal/ Medical History: Reports: End Stage Renal Disease Musculoskeltal Medical History: Reports: Arthritis Hematology: Reports: Anemia - HX OF Past Surgical History Past Surgical History: Reports: Cardiac Catheterization - Possible cardiac catheterization with stent placement. Records are pending, Cholecystectomy Denies: Pacemaker Family History Family History: CAD, Hypertension, Other - Kidney disease Parental Family History Reviewed: No Children Family History Reviewed: No Sibling(s) Family History Reviewed.: No Social History Smoking Status: Never Smoker Frequency of Alcohol Use: None Hx Recreational Drug Use: No Hx Prescription Drug Abuse: No Physical Exam Vital Signs: Temp Pulse Resp BP Pulse Ox 97.6 F 62 18 150/68 H 96 03/09/18 09:01 03/09/18 09:01 03/09/18 09:01 03/09/18 09:01 03/09/18 09:01 Intake & Output 03/08/18 03/09/18 03/10/18 06:59 06:59 06:59 Weight 61 kg 61 kg Additional comments: Constitutional: Well-developed well-nourished -[place] lady. No apparent acute distress. Eyes: Blindness, corneal opacity appreciated.. ENT: Hearing grossly normal. External pinna normal to inspection. Teeth some missing. Tongue normal to inspection. Cardiac: Heart sounds normal Respiratory: Normal respiratory effort. Psychiatric: Judgment, memory, insight seem normal. Mood is pleasant and appropriate. Extremities: Upper extremities show normal range of movement. Pulses present noted to the radial arteries. Capillary refill normal. No cyanosis noted. No muscle wasting noted. Left arm well-established transposed basilic fistula. Dilated, even aneurysmal areas noted. The fistula is somewhat firmer than would be normal. Suggesting cephalad stenosis. Impression/Plan Plan: Fistula angiogram and angioplasty if necessary.
--- NOTE | 2018-03-09 11:22 | Discharge Summary ---
Discharge Summary (SDC) - Discharge Final Diagnosis: #1 malfunctioning arteriovenous fistula, left transposed basilic. 2. End-stage renal disease on hemodialysis. 3. Hypertension. Date of Surgery: 03/09/18 Discharge Date: 03/09/18 Condition: Fair Treatment or Instructions: Discharge home [after recovery per ASU criteria]. Diet , [renal],as tolerated, when fully awake advance as tolerated. Activities within moderation encouraged. Follow up in my office by appointment in about [1 week]. Call for appointment. Leave wounds [covered], [keep clean and dry, until hemodialysis]. Meds per med rec. Hold of on school/work [until evaluation in office]. May shower [in 48 hrs], [try to keep operated area as dry as possible]. Referrals: JOSE MANUEL MIX MD [Primary Care Provider] - Discharge Diet: Other (Comments) - Renal. Respiratory Treatments at Home: Deep Breathing/Coughing Discharge Activity: Activity As Tolerated Report the Following to Your Physician Immediately: Shortness of Breath, Unusual Bleeding
[2018-03-09 12:04] VITALS: BP 160/84
--- NOTE | 2018-04-11 11:24 | OPERATIVE REPORT E ---
Operative Report NAME: LOVELY ESPAÑA : 1940 AGE: 77Y DATE OF SURGERY: 03/09/2018 ROOM: PREOPERATIVE DIAGNOSES: 1. Malfunctioning AV fistula, left arm, transposed basilic. 2. End-stage renal disease, on hemodialysis. 3. Hypertension. 4. Multiple comorbidities. POSTOPERATIVE DIAGNOSES: 1. Malfunctioning AV fistula, left arm, transposed basilic. 2. End-stage renal disease, on hemodialysis. 3. Hypertension. 4. Multiple comorbidities. OPERATIVE PROCEDURES: 1. Needle introduction in the fistula. 2. Angioplasty in central veins. 3. Angioplasty in peripheral fistula. 4. Angiogram and interpretation. SURGEON: OMKAR DUNN M.D. PERSONAL FINANCIAL REPRESENTATIVE: None. ANESTHESIA: Moderate sedation. TISSUE REMOVED OR ALTERED: Not applicable. COMPLICATIONS: None. OPERATIVE BLOOD LOSS: 2 mL. OPERATIVE FINDINGS: Well-founded left arm basilic, transposed fistula. Moderately firm initially, post semi-obstructed. At the end of the procedure much normal, softer. The culprit lesions are 70% stenosed at about 23 cm from the anastomosis and another in the mid subclavian. Both of these are about 70%. The actual diameter is hard to appreciate but certainly collaterals adjacent to it strongly suggest hemodynamic significance. The collaterals were diminished after angioplasty. PROCEDURE: After verifying the procedure and obtaining informed consent, the patient's left arm was prepared with chlorhexidine and draped out in sterile linen. Local anesthesia infiltrated. Moderate sedation given. Percutaneous access was now obtained antegrade about 4 cm from the arteriovenous anastomosis using an 18-gauge needle, a 0.35 guidewire, and over this a 7-Bel[place]ian short introducer. Based on the angiogram, angioplasty was done. First an 8 mm angioplasty balloon was advanced up to the mid subclavian vein, after manipulating the guidewire to this extent. Dilation was done using a 3 mL syringe. Repeat angiogram suggested persistence in hemodynamic significance. The balloon was now withdrawn and used to inflate at the 23 to 24 cm area. This was done for 2 minutes using a 3 mL syringe. Completion angiogram demonstrated satisfactory resolution of that lesion. A 9 mm angioplasty balloon was now inserted over the guidewire and positioned over the culprit lesion in the mid subclavian. It was inflated up to 14 atmospheres for 3 minutes and then deflated. Completion angiogram was acceptable and accepted. The instrumentation was removed sequentially and firm handheld pressure held for 10 minutes. It should be noted that the procedure was conducted under partial heparinization. The patient was given 2500 units of heparin during the procedure. DICTATING PHYSICIAN: OMKAR DUNN M.D. [id number] PHY#: [id number] ID: [id number] JOB#: [id number] ACCT: [id number] cc:OMKAR DUNN M.D. >
== END 2018-03-09 12:15 | disposition home or self-care (01) ==
LOC: CCL 07:56
PROVIDERS: ATTEND Surgery
DX: T82.858A Stenosis of other vascular prosthetic devices, implants and grafts, initial encounter (principal); Y83.2 Surgical operation with anastomosis, bypass or graft as the cause of abnormal reaction of the patient, or of later complication, without mention of misadventure at the time of the procedure; I12.0 Hypertensive chronic kidney disease with stage 5 chronic kidney disease or end stage renal disease; E11.22 Type 2 diabetes mellitus with diabetic chronic kidney disease; N18.6 End stage renal disease; Z99.2 Dependence on renal dialysis; E78.5 Hyperlipidemia, unspecified; M19.90 Unspecified osteoarthritis, unspecified site; Z79.899 Other long term (current) drug therapy; I25.2 Old myocardial infarction
CPT/HCPCS: 36415; 85027; 80048; 36907; 36902; C1725; C1752; C1894; C1769; J1644 ×2; A9270 ×2; J3490; J2250; J3010

== ENCOUNTER 2018-04-07 16:33 | Inpatient (IN) | payer MEDICARE ==
[2018-04-07] MEDS ORDERED: IPRATROPIUM/ALBUTEROL 0.5-2.5 MG/3 ML AMPUL NEB ONE (17:04)
[2018-04-07 17:35] LABS: ABSOLUTE EOSINOPHILS # (AUTO) 0.1 10^3/uL (0.0-0.6); ABSOLUTE MONOCYTES (AUTO) 0.3 10^3/uL (0.1-1.4); ABSOLUTE NEUT (AUTO) 3.4 10^3/uL (1.7-8.2); BASOPHILS % (AUTO) 0.9 % (0-2); EOSINOPHILS % (AUTO) 1.1 % (0-6); HEMATOCRIT 30.9 % (36.0-47.0); HEMOGLOBIN 10.1 g/dL (12.0-15.5); LYMPHOCYTES % (AUTO) 21.6 % (13-45); MEAN CORPUSCULAR HEMOGLOBIN 32.6 pg (27.0-33.4); MEAN CORPUSCULAR HGB CONC 32.5 g/dL (32.0-36.0); MEAN CORPUSCULAR VOLUME 100 fl (80-97); PLATELET COUNT 176 10^3/uL (150-450); RED BLOOD COUNT 3.08 10^6/uL (3.72-5.28); RED CELL DISTRIBUTION WIDTH 15.7 % (11.5-14.0); SEGMENTED NEUTROPHILS % (AUTO) 70.4 % (42-78); TOTAL CELLS COUNTED % (AUTO) 100 %; WHITE BLOOD COUNT 4.8 10^3/uL (4.0-10.5)
--- NOTE | 2018-04-07 18:13 | RADIOLOGY REPORT (SQ) ---
EXAM DESCRIPTION: CHEST SINGLE VIEW COMPLETED DATE/TIME: 04/07/2018 5:31 pm REASON FOR STUDY: yanick blanco COMPARISON: 09/19/2017 EXAM PARAMETERS: NUMBER OF VIEWS: One view. TECHNIQUE: Single frontal radiographic view of the chest acquired. RADIATION DOSE: NA LIMITATIONS: None. FINDINGS: LUNGS AND PLEURA: Today's examination demonstrates a large left-sided pleural effusion. A ir bronchograms are seen at the left hilum. Left upper lobe and right lobes appear clear. No pneumo thorax. MEDIASTINUM AND HILAR STRUCTURES: Limited examination due to obscuration by left-sided pleural effusi on. The mediastinum appears similar to that seen on comparison imaging. HEART AND VASCULAR STRUCTURES: Limited examination due to obscuration by left-sided pleural effusion. BONES: No acute findings. HARDWARE: None in the chest. OTHER: No other significant finding. IMPRESSION: Large left-sided pleural effusion and pulmonary consolidation. In the appropriate clini leroy setting, findings are consistent with pneumonia. Recommend follow up to resolution. TECHNICAL DOCUMENTATION: JOB ID: [id number] [employer]- All Rights Reserved Reading location - IP/workstation name: [email or web address]
[2018-04-07 18:41] LABS: ALANINE AMINOTRANSFERASE 16 U/L (9-52); ALBUMIN 3.7 g/dL (3.5-5.0); ALKALINE PHOSPHATASE 67 U/L (38-126); ANION GAP 9 (5-19); ASPARTATE AMINO TRANSFERASE 25 U/L (14-36); BILIRUBIN,DIRECT 0.6 mg/dL (0.0-0.4); BILIRUBIN,TOTAL 0.6 mg/dL (0.2-1.3); BLOOD UREA NITROGEN 5 mg/dL (7-20); CALCIUM 7.7 mg/dL (8.4-10.2); CARBON DIOXIDE 33 mmol/L (22-30); CHLORIDE 95 mmol/L (98-107); CREATINE KINASE 54 U/L (30-135); GLUCOSE 105 mg/dL (75-110); POTASSIUM 3.4 mmol/L (3.6-5.0); SODIUM 136.6 mmol/L (137-145); TOTAL PROTEIN 6.7 g/dL (6.3-8.2)
[2018-04-07 20:26] LABS: INTERNATIONAL RATION (INR) 0.95; PROTHROMBIN TIME 13.2 SEC (11.4-15.4)
[2018-04-07 20:27] LABS: PARTIAL THROMBOPLASTIN TIME 37.7 SEC (23.5-35.8)
--- NOTE | 2018-04-07 20:58 | EKG REPORT ---
SEVERITY:- BORDERLINE ECG - BORDERLINE T ABNORMALITIES, DIFFUSE LEADS SINUS RHYTHM WITH SHORT LA : Confirmed by: Lulu Cortez MD 07-Apr-2018 20:57:26
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
[2018-04-08] MEDS ORDERED: GLUCAGON,HUMAN RECOMB 1 MG INJ IM PRN ×2 (07:49→11:59)
[2018-04-08] MEDS ORDERED: DEXTROSE 40% GEL 15 GM TUBE PO PRN ×2 (07:49→11:59)
[2018-04-08] MEDS ORDERED: INSULIN LISPRO 100 UNIT/ML 3 ML VIAL SUBCUT PRN ×2 (07:49→11:59)
[2018-04-08] MEDS ORDERED: DEXTROSE 50%-WATER SYRINGE 25 GM/50 ML DOSE IV PRN ×2 (07:49→11:59)
[2018-04-08] MEDS ORDERED: DEXTROSE 40% GEL 15 GM TUBE X 2 PO PRN ×2 (07:49→11:59)
[2018-04-08] MEDS ORDERED: DEXTROSE 50%-WATER SYRINGE 12.5 GM/25 ML DOSE IV PRN ×2 (07:49→11:59)
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
--- NOTE | 2018-04-08 13:33 | RADIOLOGY REPORT (SQ) ---
EXAM DESCRIPTION: U/S CHEST COMPLETED DATE/TIME: 04/08/2018 12:40 pm REASON FOR STUDY: Large left pleural effusion, Hypoxemia COMPARISON: Radiographs 04/07/2018. FINDINGS: Limited ultrasound imaging of the left chest shows a sizable left pleural effusion. Program Support Clerk indicates marking of skin surface access site for thoracentesis. TECHNICAL DOCUMENTATION: JOB ID: [id number] Reading location - IP/workstation name: [email or web address]
[2018-04-08 14:31] LABS: ANION GAP 10 (5-19); BLOOD UREA NITROGEN 10 mg/dL (7-20); CALCIUM 7.9 mg/dL (8.4-10.2); CARBON DIOXIDE 30 mmol/L (22-30); CHLORIDE 97 mmol/L (98-107); CREATINE KINASE 52 U/L (30-135); GLUCOSE 83 mg/dL (75-110); POTASSIUM 3.9 mmol/L (3.6-5.0); SODIUM 137.3 mmol/L (137-145)
--- NOTE | 2018-04-08 14:33 | XCELERA REPORT ---
[address] [address] Transthoracic Echocardiogram Report Name: LOVELY ESPAÑA Age: 77 yrs Gender: Female : 1940 Patient Status: Inpatient Patient Location: [address] [place], [place] [address] Study Date: 04/08/2018 01:26 PM Height: 64 in Weight: 143 lb BSA: 1.7 m2 Procedure: A two-dimensional transthoracic echocardiogram with color flow and Doppler was performed. Study Quality: Fair. Reason For Study: Large left pleural effusion, Hypoxemia History: PERICARDIAL EFFUSION. Ordering Physician: BROOKE DAY Performed By: Sailaja Rowe Interpretation Summary The left ventricle is normal in size. There is normal left ventricular wall thickness. LV EF is 55% Left ventricular systolic function is low normal. Doppler measurements suggest impaired left ventricular relaxation, which is associated with grade I/IV or mild diastolic dysfunction LV apical segments are severely hypokinetic to akinetic.Rest of the LV harrison contract normally. There is no thrombus. The right ventricle is mildly dilated. The right ventricle is not well visualized secondary to technical limitations The right ventricular systolic function is normal. The right atrium is normal. The left atrium is mildly dilated. The interatrial septum is intact with no evidence for an atrial septal defect. There is no mitral valve stenosis. There is a moderate amount of mitral regurgitation There is no aortic valve stenosis There is no LVOT obstruction. There is aortic sclerosis without aortic stenosis. There is a mild amount of aortic regurgitation There is no tricuspid stenosis. There is a mild amount of tricuspid regurgitation There is mild pulmonary hypertension by echo RVSP is 39 to 44 mm of Hg , with RA mean of 5 to 10. There is no pulmonic valvular stenosis. There is a mild amount of pulmonic regurgitation The aortic root is normal size. The inferior vena cava appeared normal and decreased > 50% with respiration (RAP 5-10 mmHg) Small pericardial effusion. There are no echocardiographic or Doppler indications for cardiac tamponade MMode/2D Measurements & Calculations RVDd: 2.5 cm LVIDd: 5.5 cm FS: 30.8 % Ao root diam: 2.6 cm IVSd: 0.98 cm LVIDs: 3.8 cm EDV(Teich): 144.5 ml Ao root area: 5.4 cm2 LVPWd: 0.94 cm ESV(Teich): 60.8 ml LA dimension: 4.3 cm EF(Teich): 57.9 % Doppler Measurements & Calculations MV E max adolfo: MV P1/2t max adolfo: Ao V2 max: LV V1 max P.6 cm/sec 108.6 cm/sec 165.9 cm/sec 5.9 mmHg MV A max adolfo: MV P1/2t: 94.1 msec Ao max PG: LV V1 max: 118.5 cm/sec MVA(P1/2t): 2.3 cm2 11.0 mmHg 121.9 cm/sec MV E/A: 0.91 MV dec slope: 338.0 cm/sec2 MV dec time: 0.31 sec PA V2 max: PI end-d adolfo: TR max adolfo: MV P1/2t-pr_phl: 82.4 cm/sec 109.9 cm/sec 289.1 cm/sec 94.1 msec PA max P.7 mmHg TR max P.4 mmHg Left Ventricle The left ventricle is normal in size. There is normal left ventricular wall thickness. LV EF is 55%. Left ventricular systolic function is low normal. Doppler measurements suggest impaired left ventricular relaxation, which is associated with grade I/IV or mild diastolic dysfunction. LV apical segments are severely hypokinetic to akinetic.Rest of the LV harrison contract normally. There is no thrombus. There is no ventricular septal defect visualized. Right Ventricle The right ventricle is mildly dilated. The right ventricle is not well visualized secondary to technical limitations. The right ventricular systolic function is normal. Atria The right atrium is normal. The left atrium is mildly dilated. The interatrial septum is intact with no evidence for an atrial septal defect. Mitral Valve There is mild mitral annular calcification. There is no evidence of mitral valve prolapse. There is no mitral valve stenosis. There is a moderate amount of mitral regurgitation. Aortic Valve There is no aortic valvular vegetation. There is no aortic valve stenosis. There is no LVOT obstruction. There is aortic sclerosis without aortic stenosis. There is a mild amount of aortic regurgitation. Tricuspid Valve There is no tricuspid stenosis. There is a mild amount of tricuspid regurgitation. There is mild pulmonary hypertension by echo. RVSP is 39 to 44 mm of Hg , with RA mean of 5 to 10. Pulmonic Valve There is no pulmonic valvular stenosis. There is a mild amount of pulmonic regurgitation. Great Vessels The aortic root is normal size. The inferior vena cava appeared normal and decreased > 50% with respiration (RAP 5-10 mmHg). Effusions Small pericardial effusion. There are no echocardiographic or Doppler indications for cardiac tamponade. : BROOKE DAY > Lulu Cortez
[2018-04-08 14:41] LABS: CREATINE KINASE MB 0.85 ng/mL (<4.55); TROPONIN I 0.019 ng/mL
[2018-04-08] MEDS: ATORVASTATIN CALCIUM 80 MG TABLET PO SCH (21:54)
--- NOTE | 2018-04-08 22:11 | PDOC CONSULTATION ---
Consultation Consult Date: 04/08/18 Consult reason:: left pleural effusion with shortness of breath History of Present Illness Admission Date/PCP: 04/07/18 21:33 JOSE MANUEL MIX MD Patient complains of: shortness of breath History of Present Illness: LOVELY ESPAÑA is a 77 year old female on Hemodialysis was admitted for shortness of breath. Noted a large left pleural effusion on CXR. Pulse Ox 88% in ED. Now 97% on 2 L Nasal O2. History of thoracentesis last November. Past Medical History Cardiac Medical History: Reports: Myocardial Infarction - 2017, Hyperlipidema, Hypertension Denies: Coronary Artery Disease Pulmonary Medical History: Denies: Asthma, Bronchitis, Chronic Obstructive Pulmonary Disease (COPD), Pneumonia, Tuberculosis Neurological Medical History: Denies: Seizures Endocrine Medical History: Reports: Diabetes Mellitus Type 2, Hypothyroidism Renal/ Medical History: Reports: End Stage Renal Disease Musculoskeltal Medical History: Reports: Arthritis Hematology: Reports: Anemia - HX OF Past Surgical History Past Surgical History: Reports: Cardiac Catheterization - Possible cardiac catheterization with stent placement. Records are pending, Cholecystectomy Denies: Pacemaker Social History Smoking Status: Unknown if Ever Smoked Frequency of Alcohol Use: None Hx Recreational Drug Use: No Hx Prescription Drug Abuse: No Family History Family History: CAD, Hypertension, Other - Kidney disease Parental Family History Reviewed: Yes Children Family History Reviewed: No Sibling(s) Family History Reviewed.: No Medication/Allergy Home Medications: Atorvastatin Calcium [Lipitor 80 mg Tablet] 80 mg PO DAILY 04/08/18 Levothyroxine Sodium [Synthroid] 150 mcg PO Q6AM 04/08/18 Allergies/Adverse Reactions: adhesive tape Allergy (Intermediate, Verified 08/23/17 10:21) Generalized rash Review of Systems Constitutional: PRESENT: other - no fever/chills Eyes: PRESENT: other - decrease vision right eye Cardiovascular: PRESENT: other - no chest pains Respiratory: PRESENT: other - denies short of breath at this time. On 2 L of O2 Gastrointestinal: PRESENT: other - no pains Musculoskeletal: PRESENT: muscle weakness Psychiatric: PRESENT: anxiety Physical Exam Vital Signs: Temp Pulse Resp BP Pulse Ox 98.9 F 65 12 115/51 L 100 04/08/18 19:26 04/08/18 19:26 04/08/18 19:26 04/08/18 19:26 04/08/18 19:26 Intake & Output 04/07/18 04/08/18 04/09/18 06:59 06:59 06:59 Intake Total 222 1271 Balance 222 1271 Weight 65.3 kg General appearance: PRESENT: no acute distress Eye exam: PRESENT: conjunctiva pink Mouth exam: PRESENT: moist Neck exam: PRESENT: other - no JVD Respiratory exam: PRESENT: decreased breath sounds - left side Cardiovascular exam: PRESENT: RRR Pulses: PRESENT: normal radial pulses Vascular exam: PRESENT: normal capillary refill GI/Abdominal exam: PRESENT: soft Rectal exam: PRESENT: deferred Neurological exam: PRESENT: alert, oriented to person, oriented to place, oriented to time, oriented to situation Psychiatric exam: PRESENT: anxious Skin exam: PRESENT: normal color, warm Results Laboratory Results: 04/08/18 13:27 04/08/18 13:27 Sodium 137.3 Potassium 3.9 Chloride 97 L Carbon Dioxide 30 Anion Gap 10 BUN 10 Creatinine 5.46 H Est GFR ( Amer) 9 L Est GFR (Non-Af Amer) 8 L Glucose 83 Calcium 7.9 L 04/08/18 04/08/18 13:27 13:27 Creatine Kinase 52 CK-MB (CK-2) 0.85 Troponin I 0.019 Impressions: Chest X-Ray 04/07/18 17:04 IMPRESSION: Large left-sided pleural effusion and pulmonary consolidation. In the appropriate clinical setting, findings are consistent with pneumonia. Recommend follow up to resolution. Assessment & Plan - Time Time Spent: 30 to 50 Minutes - Plan Summary Plan Summary: Patient appears comfortable at this time. Just had echocardiogram which showed small pericardial effusion with 55% ejection fraction Had entry level automotive technician monica site for possible thoracentesis Will re-evaluate tomorrow and recheck CXR/effusion
--- NOTE | 2018-04-09 08:23 | RADIOLOGY REPORT (SQ) ---
EXAM DESCRIPTION: CHEST 2 VIEWS COMPLETED DATE/TIME: 04/09/2018 8:05 am REASON FOR STUDY: left pleural effusion COMPARISON: 04/07/2018. TECHNIQUE: Frontal and lateral radiographic views of the chest acquired. NUMBER OF VIEWS: Two view. LIMITATIONS: None. FINDINGS: LUNGS AND PLEURA: Near complete opacification left hemithorax, slightly progressive. Know n large pleural effusion. Additional consolidation/collapse. Mild remaining apical aerated lung. N o pneumothorax. Right lung hyperinflated but generally clear. MEDIASTINUM AND HILAR STRUCTURES: Mild shift of mediastinal structures to the right. Grossly stable. HEART AND VASCULAR STRUCTURES: Cardiac enlargement. Heart shadow largely obscured. BONES: Osteopenic. HARDWARE: None in the chest. OTHER: No other significant finding. IMPRESSION: Interval slight worsening in appearance of the left chest. Known large left pleural eff usion. TECHNICAL DOCUMENTATION: JOB ID: [id number] [employer]- All Rights Reserved Reading location - IP/workstation name: [email or web address]
--- NOTE | 2018-04-09 10:16 | PDOC PROGRESS REPORT ---
Subjective Progress Note for:: 04/09/18 Subjective:: Awaiting thoracentesis. Patient reported some relief with laying on her left side. No chest pain. No fever or chills. No nausea or vomiting. Reason For Visit: PLEURAL EFFUSION, HYPOXIA,HYPONATREMIA Physical Exam Vital Signs: Temp Pulse Resp BP Pulse Ox 98.2 F 57 L 18 125/49 L 100 04/09/18 09:14 04/09/18 09:14 04/09/18 09:14 04/09/18 09:14 04/09/18 09:14 Intake & Output 04/08/18 04/09/18 04/10/18 06:59 06:59 06:59 Intake Total 222 1689 Balance 222 1689 Weight 65.3 kg 65.1 kg General appearance: PRESENT: mild distress - respiratory frank in supine position Head exam: PRESENT: atraumatic, normocephalic Eye exam: PRESENT: conjunctiva pink. ABSENT: scleral icterus Ear exam: PRESENT: normal external ear exam Mouth exam: PRESENT: moist Respiratory exam: PRESENT: decreased breath sounds - bilaterally at lung bases. Cardiovascular exam: PRESENT: RRR. ABSENT: diastolic murmur, rubs, systolic murmur Vascular exam: ABSENT: pallor GI/Abdominal exam: PRESENT: normal bowel sounds, soft. ABSENT: distended, guarding, mass, organolmegaly, rebound, tenderness Extremities exam: ABSENT: pedal edema - chronic to mid leg level Musculoskeletal exam: PRESENT: deformity - related to multiple joints involvement with arthritis Neurological exam: PRESENT: alert - aand appropriate in simple responses., awake , other - blind Psychiatric exam: PRESENT: appropriate affect, normal mood. ABSENT: homicidal ideation, suicidal ideation Skin exam: PRESENT: dry, warm Results Laboratory Results: 04/08/18 13:27 04/08/18 13:27 Sodium 137.3 Potassium 3.9 Chloride 97 L Carbon Dioxide 30 Anion Gap 10 BUN 10 Creatinine 5.46 H Est GFR ( Amer) 9 L Est GFR (Non-Af Amer) 8 L Glucose 83 Calcium 7.9 L 04/08/18 04/08/18 13:27 13:27 Creatine Kinase 52 CK-MB (CK-2) 0.85 Troponin I 0.019 Impressions: Chest X-Ray 04/09/18 07:00 IMPRESSION: Interval slight worsening in appearance of the left chest. Known large left pleural effusion. Assessment & Plan - Diagnosis (1) Large pleural effusion Is this a current diagnosis for this admission?: Yes Plan: Awaiting left thoracentesis. (2) Chronic diastolic (congestive) heart failure Is this a current diagnosis for this admission?: Yes Plan: Her echocardiogram suggested normal LVEF at 55% and mild diastolic dysfunction. (3) ESRD (end stage renal disease) on dialysis Is this a current diagnosis for this admission?: Yes (4) Diabetes mellitus type 2 in nonobese Is this a current diagnosis for this admission?: Yes (5) Hypertension Qualifiers: Hypertension type: essential hypertension Qualified Code(s): I10 - Essential (primary) hypertension Is this a current diagnosis for this admission?: Yes (6) HLD (hyperlipidemia) Qualifiers: Hyperlipidemia type: pure hypercholesterolemia Qualified Code(s): E78.00 - Pure hypercholesterolemia, unspecified; E78.0 - Pure hypercholesterolemia Is this a current diagnosis for this admission?: Yes (7) Pulmonary hypertension Is this a current diagnosis for this admission?: Yes - Time Time Spent with patient: 25-34 minutes Medications reviewed and adjusted accordingly: Yes Anticipated discharge: Home with Homehealth Within: Other - Inpatient Certification Based on my medical assessment, after consideration of the patient's comorbidities, presenting symptoms, or acuity I expect that the services needed warrant INPATIENT care.: Yes I certify that my determination is in accordance with my understanding of Medicare's requirements for reasonable and necessary INPATIENT services [42 CFR 412.3e].: Yes Medical Necessity: Need Close Monitoring Due to Risk of Patient Decompensation, Need For Continuous Telemetry Monitoring, Need for Surgery - surgicalist consultation in progress for left thoracentesis., Risk of Complication if Not Cared For in Hospital Post Hospital Care: D/C Dispatcher Chief [employer] Documentation - Plan Summary Plan Summary: See covering attending physician orders.
--- NOTE | 2018-04-09 13:06 | OPERATIVE REPORT E ---
Operative Report NAME: LOVELY ESPAÑA : 1940 AGE: 77Y DATE OF SURGERY: 04/09/2018 ROOM: 406 PREOPERATIVE DIAGNOSIS: LARGE LEFT PLEURAL EFFUSION. POSTOPERATIVE DIAGNOSIS: LARGE LEFT PLEURAL EFFUSION. OPERATION: Thoracentesis, left pleural effusion. SURGEON: BRADEN PEARSON M.D. ANESTHESIA: Local. INDICATION: This 77-year-old female with end-stage renal disease on hemodialysis noted to have shortness of breath and large left pleural effusion. Chest x-ray done today showed increasing left pleural effusion, but patient appears fairly comfortable now compared to on admission. PROCEDURE: Patient was placed in semi-sitting position with left side slightly elevated. Patient has a previous monica by ultrasound check yesterday for the appropriate site for needle placement. The area around the monica site was then prepped and draped in the usual sterile fashion. Local anesthesia infiltrated on the skin and then towards the area of the pleura using about 5 mL of 1% lidocaine. A small stab incision was then made on the skin. Next, a catheter with a needle underneath was then placed through the puncture site into the pleural cavity. Guidewire was pulled back slightly and the catheter pushed down further into the pleural cavity, just leaving about an inch of the catheter through the skin. Guidewire was subsequently removed completely and a 3-way catheter was then inserted through the regional catheter. Next, the cavity was then aspirated manually of clear yellowish fluid, placing the aspirate into a large sterile container. Around 1200 mL of pleural fluid were aspirated plus another 100 mL that was initially aspirated for specimen for culture and sensitivity. Towards the end of the thoracentesis, patient complained of shortness of breath and noted to have a pulse ox of 100%. At any rate, the procedure was then terminated and the catheter pulled out, and an occlusive dressing placed over the puncture site. A chest x-ray will be obtained to make sure there is no evidence of any pneumothorax. Patient tolerated procedure fairly well. DICTATING PHYSICIAN: BRADEN PEARSON M.D. [id number] PHY#: [id number] ID: [id number] JOB#: [id number] ACCT: [id number] cc:BRADEN PEARSON M.D. >
--- NOTE | 2018-04-09 13:13 | RADIOLOGY REPORT (SQ) ---
EXAM DESCRIPTION: CHEST SINGLE VIEW COMPLETED DATE/TIME: 04/09/2018 12:41 pm REASON FOR STUDY: SOB, PLURAL EFFUSION COMPARISON: 04/09/2018 earlier. FINDINGS: Two-view chest reveals much improved aeration left lung, status post thoracentesis. Trace left pleural fluid remains with improving basilar aeration. Resolved mediastinal shift. No pneumot horax. TECHNICAL DOCUMENTATION: JOB ID: [id number] Reading location - IP/workstation name: [email or web address]
[2018-04-09] MEDS: ATORVASTATIN CALCIUM 80 MG TABLET PO SCH (22:10)
[2018-04-10] MEDS ORDERED: LEVOTHYROXINE SODIUM 0.15 MG TABLET PO PRN (09:40)
--- NOTE | 2018-04-10 14:53 | PDOC CONSULTATION ---
Consultation Consult Date: 04/10/18 Consult reason:: ESRD for Dialysis. History of Present Illness Admission Date/PCP: 04/07/18 21:33 JOSE MANUEL MIX MD History of Present Illness: LOVELY ESPAÑA is a 77 year old female with a h/o Hypertension, CHF and ESRD on dialysis was admitted with feeling weak and dyspnea with exertion of 1- 2 days duration. She denied any chest pains , cough , fever or chills.She was diagnosed to have a large left pleural effuson and underwent a thoracentesis and approx 1.2 L of fluid was extracted. She is generally feeling better since then but still feels weak.Her latest labs and medications were reviewed. Had an ECHO done which I reviewed which showed mild LV systolic and diastolic failure with a EF of 55%. She is currently undergoing dialysis without any issues. VS shows systolic around low 100. Dialysis orders were reviewed with treating career and transition teacher. Past Medical History Cardiac Medical History: Reports: CHF-Diastolic, Hyperlipidemia, Hypertension- primary, Myocardial Infarction - 2017 Denies: Coronary Artery Disease Pulmonary Medical History: Denies: Asthma, Bronchitis, Chronic Obstructive Pulmonary Disease (COPD), Pneumonia, Tuberculosis Neurological Medical History: Denies: Seizures Endocrine Medical History: Reports: Diabetes Mellitus Type 2, Hypothyroidism Renal/ Medical History: Reports: End Stage Renal Disease, Secondary Hyperparathyroidism Musculoskeltal Medical History: Reports: Arthritis Hematology Medical History: Reports Anemia of Chronic Kidney Disease Past Surgical History Past Surgical History: Reports: Cardiac Catheterization - Possible cardiac catheterization with stent placement. Records are pending, Cholecystectomy Denies: Pacemaker Social History Smoking Status: Unknown if Ever Smoked Frequency of Alcohol Use: None Hx Recreational Drug Use: No Hx Prescription Drug Abuse: No Family History Parental Family History Reviewed: Yes - negative for ESRD Children Family History Reviewed: Yes Sibling(s) Family History Reviewed.: Yes Medication/Allergy Home Medications: Atorvastatin Calcium [Lipitor 80 mg Tablet] 80 mg PO DAILY 04/08/18 Levothyroxine Sodium [Synthroid] 150 mcg PO Q6AM 04/08/18 Allergies/Adverse Reactions: adhesive tape Allergy (Intermediate, Verified 08/23/17 10:21) Generalized rash Review of Systems Constitutional: PRESENT: fatigue, weakness. ABSENT: fever(s), headache(s), night sweats Ears: PRESENT: hearing changes Nose, Mouth, and Throat: ABSENT: mouth pain, sore throat Cardiovascular: PRESENT: dyspnea on exertion. ABSENT: chest pain, edema, orthropnea Gastrointestinal: ABSENT: abdominal pain, coffee ground emesis, diarrhea, dysphagia, heartburn, nausea, vomiting Genitourinary: ABSENT: dysuria, hematuria Integumentary: ABSENT: erythema, lesions, pruritus, rash Neurological: ABSENT: focal weakness, frequent falls Hematologic/Lymphatic: ABSENT: easy bleeding, easy bruising, lymphadenopathy Physical Exam Vital Signs: Temp Pulse Resp BP Pulse Ox 98.1 F 68 24 H 110/56 L 94 04/10/18 08:00 04/10/18 08:00 04/10/18 08:00 04/10/18 08:00 04/10/18 08:00 Intake & Output 04/09/18 04/10/18 04/11/18 06:59 06:59 06:59 Intake Total 1689 954 Output Total 0 Balance 1689 954 Weight 65.1 kg 63.3 kg General appearance: PRESENT: no acute distress Eye exam: PRESENT: conjunctiva pink, EOMI, PERRLA. ABSENT: nystagmus Ear exam: PRESENT: normal external ear exam Mouth exam: PRESENT: moist, neck supple Neck exam: ABSENT: lymphadenopathy, meningismus, tenderness, thyromegaly, tracheal deviation Respiratory exam: ABSENT: clear to auscultation debbie, crackles Cardiovascular exam: PRESENT: +S1, +S2 GI/Abdominal exam: PRESENT: normal bowel sounds, soft. ABSENT: organomegaly, tenderness Extremities exam: ABSENT: pedal edema Neurological exam: PRESENT: alert, awake, oriented to person, oriented to place , oriented to time Skin exam: PRESENT: dry. ABSENT: erythema, mottled, rash Results Laboratory Results: 04/08/18 13:27 04/08/18 04/08/18 13:27 13:27 Creatine Kinase 52 CK-MB (CK-2) 0.85 Troponin I 0.019 Impressions: Chest X-Ray 04/09/18 07:00 IMPRESSION: Interval slight worsening in appearance of the left chest. Known large left pleural effusion. Assessment & Plan - Diagnosis (1) ESRD (end stage renal disease) on dialysis Is this a current diagnosis for this admission?: Yes Plan: Patient seen on dialysis. Electrolytes are stable. She is clinically dry and with low normal BP.Plan to infuse 200 cc of IV saline on dialysis. Not on any BP meds. VS are otherwise stable. Dialysis is being supervised to ensure a safe and smooth procedure.Orders were reviewed again with the treating career and transition teacher Birdie. (2) Diabetes mellitus type 2 in nonobese Is this a current diagnosis for this admission?: Yes Plan: Adv on tight control. (3) Large pleural effusion Is this a current diagnosis for this admission?: Yes Plan: S/P thoracentesis of approx 1.2 L. ? etiology . CHF versus others. No obvious evidence of Pneumonia.Further management by Dr Marcus. (4) Systolic and diastolic CHF, chronic Plan: Currently stable and apparently compensated.
[2018-04-10 15:17] LABS: HEMOGLOBIN 9.4 g/dL (12.0-15.5); MEAN CORPUSCULAR HEMOGLOBIN 33.3 pg (27.0-33.4); MEAN CORPUSCULAR HGB CONC 33.7 g/dL (32.0-36.0); MEAN CORPUSCULAR VOLUME 99 fl (80-97); PLATELET COUNT 224 10^3/uL (150-450); RED BLOOD COUNT 2.83 10^6/uL (3.72-5.28); RED CELL DISTRIBUTION WIDTH 15.2 % (11.5-14.0); WHITE BLOOD COUNT 3.2 10^3/uL (4.0-10.5)
[2018-04-10 15:32] LABS: BLOOD UREA NITROGEN 18 mg/dL (7-20); CALCIUM 7.2 mg/dL (8.4-10.2); GLUCOSE 155 mg/dL (75-110)
[2018-04-10 15:33] LABS: ANION GAP 8 (5-19); CARBON DIOXIDE 30 mmol/L (22-30); CHLORIDE 97 mmol/L (98-107); POTASSIUM 3.7 mmol/L (3.6-5.0); SODIUM 134.8 mmol/L (137-145)
--- NOTE | 2018-04-10 21:50 | PDOC PROGRESS REPORT ---
Subjective Progress Note for:: 04/10/18 Subjective:: Patient was admitted for the management of shortness of breath, found to have very large left pleural effusion Reason For Visit: PLEURAL EFFUSION, HYPOXIA,HYPONATREMIA Physical Exam Vital Signs: Temp Pulse Resp BP Pulse Ox 97.4 F 70 20 115/79 98 04/10/18 16:00 04/10/18 16:00 04/10/18 16:00 04/10/18 16:00 04/10/18 16:00 Intake & Output 04/09/18 04/10/18 04/11/18 06:59 06:59 06:59 Intake Total 1689 954 410 Output Total 0 0 Balance 1689 954 410 Weight 65.1 kg 63.3 kg General appearance: PRESENT: no acute distress Eye exam: PRESENT: other - Right eye blindness Respiratory exam: PRESENT: clear to auscultation debbie Cardiovascular exam: PRESENT: +S1, +S2 GI/Abdominal exam: PRESENT: soft Neurological exam: PRESENT: alert Results Laboratory Results: 04/10/18 09:55 04/10/18 09:55 04/10/18 04/10/18 09:55 09:55 WBC 3.2 L RBC 2.83 L Hgb 9.4 L Hct 28.0 L MCV 99 H MCH 33.3 MCHC 33.7 RDW 15.2 H Plt Count 224 Sodium 134.8 L Potassium 3.7 Chloride 97 L Carbon Dioxide 30 Anion Gap 8 BUN 18 Creatinine 9.32 H Est GFR ( Amer) 5 L Est GFR (Non-Af Amer) 4 L Glucose 155 H Calcium 7.2 L 04/08/18 04/08/18 13:27 13:27 Creatine Kinase 52 CK-MB (CK-2) 0.85 Troponin I 0.019 Impressions: Chest X-Ray 04/09/18 07:00 IMPRESSION: Interval slight worsening in appearance of the left chest. Known large left pleural effusion. Assessment & Plan - Diagnosis (1) Large pleural effusion Is this a current diagnosis for this admission?: Yes (2) Chronic diastolic (congestive) heart failure Is this a current diagnosis for this admission?: Yes (3) ESRD (end stage renal disease) on dialysis Is this a current diagnosis for this admission?: Yes (4) Systolic and diastolic CHF, chronic Is this a current diagnosis for this admission?: Yes
[2018-04-10] MEDS: ATORVASTATIN CALCIUM 80 MG TABLET PO SCH (23:02)
[2018-04-11] MEDS: LEVOTHYROXINE SODIUM 0.15 MG TABLET PO SCH (07:00)
--- NOTE | 2018-04-11 14:59 | PDOC PROGRESS REPORT ---
Subjective Progress Note for:: 04/11/18 Subjective:: Patient was seen today sitting up in her bed. She appeared to be her normal slightly confused self. She was complaining of her blood pressure being to low. Currently it is in the 110s to 120s systolic and she is on no bp meds. She also was complaining of not having enough food despite there being half a tray of food remaining next to her. At the time she said that her SOB had improved. She denied chest pain, n/v/d/c. Reason For Visit: PLEURAL EFFUSION, HYPOXIA,HYPONATREMIA Physical Exam Vital Signs: Temp Pulse Resp BP Pulse Ox 98.1 F 65 16 126/61 H 100 04/11/18 11:23 04/11/18 11:23 04/11/18 11:23 04/11/18 11:23 04/11/18 11:31 Intake & Output 04/10/18 04/11/18 04/12/18 06:59 06:59 06:59 Intake Total 954 646 Output Total 0 0 Balance 954 646 Weight 63.3 kg 61.4 kg General appearance: PRESENT: no acute distress, well-developed, well-nourished Mouth exam: PRESENT: moist, neck supple Neck exam: PRESENT: full ROM. ABSENT: JVD Respiratory exam: PRESENT: crackles, decreased breath sounds. ABSENT: accessory muscle use, clear to auscultation debbie, wheezes Cardiovascular exam: PRESENT: +S1, +S2 GI/Abdominal exam: PRESENT: normal bowel sounds, soft. ABSENT: tenderness Extremities exam: PRESENT: +1 edema. ABSENT: pedal edema, tenderness Musculoskeletal exam: ABSENT: normal inspection, tenderness Neurological exam: PRESENT: alert, awake, oriented to person, oriented to place , oriented to time, oriented to situation Skin exam: PRESENT: dry, intact, warm. ABSENT: cyanosis Results Laboratory Results: 04/10/18 09:55 04/10/18 09:55 04/10/18 04/10/18 09:55 09:55 WBC 3.2 L RBC 2.83 L Hgb 9.4 L Hct 28.0 L MCV 99 H MCH 33.3 MCHC 33.7 RDW 15.2 H Plt Count 224 Sodium 134.8 L Potassium 3.7 Chloride 97 L Carbon Dioxide 30 Anion Gap 8 BUN 18 Creatinine 9.32 H Est GFR ( Amer) 5 L Est GFR (Non-Af Amer) 4 L Glucose 155 H Calcium 7.2 L 04/08/18 04/08/18 13:27 13:27 Creatine Kinase 52 CK-MB (CK-2) 0.85 Troponin I 0.019 Impressions: Chest X-Ray 04/09/18 07:00 IMPRESSION: Interval slight worsening in appearance of the left chest. Known large left pleural effusion. Assessment & Plan - Diagnosis (1) ESRD (end stage renal disease) on dialysis Is this a current diagnosis for this admission?: Yes Plan: will look to arrange for dialysis tomorrow. No current indication for it today. (2) Large pleural effusion Is this a current diagnosis for this admission?: Yes Plan: improved (3) Systolic and diastolic CHF, chronic Is this a current diagnosis for this admission?: Yes Plan: currently compensated (4) Hypertension Qualifiers: Hypertension type: essential hypertension Qualified Code(s): I10 - Essential (primary) hypertension Is this a current diagnosis for this admission?: Yes Plan: controlled off all bp medications (5) Diabetes mellitus type 2 in nonobese Is this a current diagnosis for this admission?: Yes Plan: currently controlled
--- NOTE | 2018-04-11 21:23 | PDOC PROGRESS REPORT ---
Subjective Progress Note for:: 04/11/18 Subjective:: Patient seen by the bedside, she feels better compared to admission Reason For Visit: PLEURAL EFFUSION, HYPOXIA,HYPONATREMIA Physical Exam Vital Signs: Temp Pulse Resp BP Pulse Ox 98.2 F 67 17 113/53 L 98 04/11/18 19:15 04/11/18 19:15 04/11/18 19:15 04/11/18 19:15 04/11/18 19:15 Intake & Output 04/10/18 04/11/18 04/12/18 06:59 06:59 06:59 Intake Total 954 646 236 Output Total 0 0 Balance 954 646 236 Weight 63.3 kg 61.4 kg General appearance: PRESENT: no acute distress Eye exam: PRESENT: PERRLA Respiratory exam: PRESENT: clear to auscultation debbie Cardiovascular exam: PRESENT: +S1, +S2 GI/Abdominal exam: PRESENT: soft Neurological exam: PRESENT: alert, motor sensory deficit Results Laboratory Results: 04/10/18 09:55 04/10/18 09:55 04/08/18 04/08/18 13:27 13:27 Creatine Kinase 52 CK-MB (CK-2) 0.85 Troponin I 0.019 Impressions: Chest X-Ray 04/09/18 07:00 IMPRESSION: Interval slight worsening in appearance of the left chest. Known large left pleural effusion. Assessment & Plan - Diagnosis (1) Large pleural effusion Is this a current diagnosis for this admission?: Yes (2) Chronic diastolic (congestive) heart failure Is this a current diagnosis for this admission?: Yes (3) ESRD (end stage renal disease) on dialysis Is this a current diagnosis for this admission?: Yes (4) Systolic and diastolic CHF, chronic Is this a current diagnosis for this admission?: Yes - Plan Summary Plan Summary: Continue treatment
[2018-04-11] MEDS: ATORVASTATIN CALCIUM 80 MG TABLET PO SCH (21:43)
[2018-04-12] MEDS ORDERED: EPOETIN ALFA INJ 20000 UNIT/1 ML VIAL (RENAL) IV PRN (05:00)
[2018-04-12] MEDS: LEVOTHYROXINE SODIUM 0.15 MG TABLET PO SCH (06:18)
[2018-04-12 06:22] LABS: HEMATOCRIT 28.7 % (36.0-47.0); HEMOGLOBIN 9.6 g/dL (12.0-15.5); MEAN CORPUSCULAR HEMOGLOBIN 33.2 pg (27.0-33.4); MEAN CORPUSCULAR HGB CONC 33.5 g/dL (32.0-36.0); MEAN CORPUSCULAR VOLUME 99 fl (80-97); PLATELET COUNT 218 10^3/uL (150-450); RED BLOOD COUNT 2.89 10^6/uL (3.72-5.28); WHITE BLOOD COUNT 3.8 10^3/uL (4.0-10.5)
[2018-04-12 06:44] LABS: ANION GAP 10 (5-19); BLOOD UREA NITROGEN 16 mg/dL (7-20); CALCIUM 7.7 mg/dL (8.4-10.2); CARBON DIOXIDE 30 mmol/L (22-30); CHLORIDE 98 mmol/L (98-107); GLUCOSE 81 mg/dL (75-110); POTASSIUM 4.2 mmol/L (3.6-5.0); SODIUM 138.1 mmol/L (137-145)
[2018-04-12] MEDS: ATORVASTATIN CALCIUM 80 MG TABLET PO SCH (21:18)
--- NOTE | 2018-04-12 22:43 | PDOC PROGRESS REPORT ---
Subjective Progress Note for:: 04/12/18 Subjective:: Patient was dialyzed today, she is very sleepy and drowsy Reason For Visit: PLEURAL EFFUSION, HYPOXIA,HYPONATREMIA Physical Exam Vital Signs: Temp Pulse Resp BP Pulse Ox 98.6 F 75 15 134/48 H 99 04/12/18 16:00 04/12/18 16:00 04/12/18 16:00 04/12/18 16:00 04/12/18 16:00 Intake & Output 04/11/18 04/12/18 04/13/18 06:59 06:59 06:59 Intake Total 646 506 440 Output Total 0 Balance 646 506 440 Weight 61.4 kg 64.8 kg 66.1 kg General appearance: PRESENT: no acute distress Eye exam: PRESENT: PERRLA Cardiovascular exam: PRESENT: +S1, +S2 Neurological exam: PRESENT: alert Results Laboratory Results: 04/12/18 05:55 04/12/18 05:55 04/12/18 04/12/18 05:55 05:55 WBC 3.8 L RBC 2.89 L Hgb 9.6 L Hct 28.7 L MCV 99 H MCH 33.2 MCHC 33.5 RDW 15.0 H Plt Count 218 Sodium 138.1 Potassium 4.2 Chloride 98 Carbon Dioxide 30 Anion Gap 10 BUN 16 Creatinine 7.42 H Est GFR ( Amer) 6 L Est GFR (Non-Af Amer) 5 L Glucose 81 Calcium 7.7 L 04/08/18 04/08/18 13:27 13:27 Creatine Kinase 52 CK-MB (CK-2) 0.85 Troponin I 0.019 Impressions: Chest X-Ray 04/09/18 07:00 IMPRESSION: Interval slight worsening in appearance of the left chest. Known large left pleural effusion. Assessment & Plan - Diagnosis (1) Large pleural effusion Is this a current diagnosis for this admission?: Yes (2) Chronic diastolic (congestive) heart failure Is this a current diagnosis for this admission?: Yes (3) ESRD (end stage renal disease) on dialysis Is this a current diagnosis for this admission?: Yes (4) Systolic and diastolic CHF, chronic Is this a current diagnosis for this admission?: Yes
[2018-04-13] MEDS: LEVOTHYROXINE SODIUM 0.15 MG TABLET PO SCH (06:04)
--- NOTE | 2018-04-13 15:33 | PDOC PROGRESS REPORT ---
Subjective Progress Note for:: 04/13/18 Subjective:: Patient was seen laying down in bed. According to her she is less short of breath and feels better. She denies chest pain, n/v/d/c. She remains having to not take any bp medications, which abnormal for her. Morning cortisol is 14, echo did not show a pericardial effusion. Reason For Visit: PLEURAL EFFUSION, HYPOXIA,HYPONATREMIA Physical Exam Vital Signs: Temp Pulse Resp BP Pulse Ox 98.8 F 77 14 113/55 L 96 04/13/18 12:00 04/13/18 14:00 04/13/18 12:00 04/13/18 12:00 04/13/18 12:00 Intake & Output 04/12/18 04/13/18 04/14/18 06:59 06:59 06:59 Intake Total 506 676 Output Total 1400 Balance 506 -724 Weight 64.8 kg 66.1 kg General appearance: PRESENT: no acute distress, well-developed, well-nourished Mouth exam: PRESENT: moist, neck supple Neck exam: PRESENT: full ROM. ABSENT: JVD Respiratory exam: PRESENT: clear to auscultation debbie. ABSENT: crackles, decreased breath sounds, rales, rhonchi, wheezes Cardiovascular exam: PRESENT: +S1, +S2 GI/Abdominal exam: PRESENT: normal bowel sounds, soft. ABSENT: tenderness Extremities exam: PRESENT: pedal edema - -trace+. ABSENT: tenderness, +1 edema , +2 edema Musculoskeletal exam: PRESENT: normal inspection. ABSENT: tenderness Neurological exam: PRESENT: alert, awake, oriented to person, oriented to place , oriented to situation Skin exam: PRESENT: dry, intact, warm. ABSENT: cyanosis Results Laboratory Results: 04/12/18 05:55 04/12/18 05:55 04/09/18 12:25 Pleural Fluid - Left Pleural Effusion Gram Stain - Final 04/09/18 12:25 Pleural Fluid - Left Pleural Effusion Body Fluid Culture - Final NO AEROBIC OR ANAEROBIC ORGANISMS RECOVERED 04/08/18 04/08/18 13:27 13:27 Creatine Kinase 52 CK-MB (CK-2) 0.85 Troponin I 0.019 Impressions: Chest X-Ray 04/09/18 07:00 IMPRESSION: Interval slight worsening in appearance of the left chest. Known large left pleural effusion. Assessment & Plan - Diagnosis (1) ESRD (end stage renal disease) on dialysis Is this a current diagnosis for this admission?: Yes Plan: will look to arrange for dialysis tomorrow. No current indication for it today. currently stable and is okay for discharge from nephrology's standpoint. (2) Large pleural effusion Is this a current diagnosis for this admission?: Yes Plan: improved (3) Systolic and diastolic CHF, chronic Is this a current diagnosis for this admission?: Yes Plan: currently compensated and edema on legs is improved (4) Hypertension Qualifiers: Hypertension type: essential hypertension Qualified Code(s): I10 - Essential (primary) hypertension Is this a current diagnosis for this admission?: Yes Plan: controlled off all bp medications (5) Diabetes mellitus type 2 in nonobese Is this a current diagnosis for this admission?: Yes Plan: currently controlled
[2018-04-13] MEDS: ATORVASTATIN CALCIUM 80 MG TABLET PO SCH (21:25)
--- NOTE | 2018-04-13 21:55 | PDOC PROGRESS REPORT ---
Subjective Progress Note for:: 04/13/18 Subjective:: Patient was seen by the bedside she has no new complaints Reason For Visit: PLEURAL EFFUSION, HYPOXIA,HYPONATREMIA Physical Exam Vital Signs: Temp Pulse Resp BP Pulse Ox 97.7 F 80 16 123/54 L 98 04/13/18 19:39 04/13/18 19:39 04/13/18 19:39 04/13/18 19:39 04/13/18 19:39 Intake & Output 04/12/18 04/13/18 04/14/18 06:59 06:59 06:59 Intake Total 506 676 503 Output Total 1400 Balance 506 -724 503 Weight 64.8 kg 66.1 kg General appearance: PRESENT: no acute distress Eye exam: PRESENT: PERRLA Respiratory exam: PRESENT: clear to auscultation debbie Cardiovascular exam: PRESENT: +S1, +S2 GI/Abdominal exam: PRESENT: soft Neurological exam: PRESENT: alert Results Laboratory Results: 04/12/18 05:55 04/12/18 05:55 04/09/18 12:25 Pleural Fluid - Left Pleural Effusion Gram Stain - Final 04/09/18 12:25 Pleural Fluid - Left Pleural Effusion Body Fluid Culture - Final NO AEROBIC OR ANAEROBIC ORGANISMS RECOVERED 04/08/18 04/08/18 13:27 13:27 Creatine Kinase 52 CK-MB (CK-2) 0.85 Troponin I 0.019 Impressions: Chest X-Ray 04/09/18 07:00 IMPRESSION: Interval slight worsening in appearance of the left chest. Known large left pleural effusion. Assessment & Plan - Diagnosis (1) Large pleural effusion Is this a current diagnosis for this admission?: Yes (2) Chronic diastolic (congestive) heart failure Is this a current diagnosis for this admission?: Yes (3) ESRD (end stage renal disease) on dialysis Is this a current diagnosis for this admission?: Yes (4) Systolic and diastolic CHF, chronic Is this a current diagnosis for this admission?: Yes
[2018-04-14] MEDS ORDERED: EPOETIN ALFA INJ 20000 UNIT/1 ML VIAL (RENAL) IV PRN (05:00)
[2018-04-14] MEDS: LEVOTHYROXINE SODIUM 0.15 MG TABLET PO SCH (05:09)
[2018-04-14] MEDS ORDERED: LORAZEPAM 1 MG TABLET PO ONE (05:15)
[2018-04-14 05:40] LABS: HEMATOCRIT 26.8 % (36.0-47.0); MEAN CORPUSCULAR HEMOGLOBIN 33.6 pg (27.0-33.4); MEAN CORPUSCULAR HGB CONC 33.7 g/dL (32.0-36.0); MEAN CORPUSCULAR VOLUME 100 fl (80-97); PLATELET COUNT 211 10^3/uL (150-450); RED BLOOD COUNT 2.69 10^6/uL (3.72-5.28); RED CELL DISTRIBUTION WIDTH 14.9 % (11.5-14.0); WHITE BLOOD COUNT 4.2 10^3/uL (4.0-10.5)
[2018-04-14 06:03] LABS: ANION GAP 8 (5-19); BLOOD UREA NITROGEN 15 mg/dL (7-20); CALCIUM 7.6 mg/dL (8.4-10.2); CARBON DIOXIDE 32 mmol/L (22-30); CHLORIDE 96 mmol/L (98-107); GLUCOSE 74 mg/dL (75-110); POTASSIUM 4.6 mmol/L (3.6-5.0); SODIUM 136.2 mmol/L (137-145)
[2018-04-14] MEDS ORDERED: EPOETIN ALFA 10,000 UNIT in SYRINGE, DISPOSABLE, 1 EACH IV PRN (13:00)
--- NOTE | 2018-04-14 16:27 | PDOC PROGRESS REPORT ---
Subjective Progress Note for:: 04/14/18 Reason For Visit: Patient seen today on dialysis.She is undergoing dialysis without any issues. Denies any chest pains, dyspnea , fever or chills.Labs and medications were reviewed with her. Physical Exam Vital Signs: Temp Pulse Resp BP Pulse Ox 97.4 F 74 17 157/57 H 95 04/14/18 07:36 04/14/18 07:36 04/14/18 07:36 04/14/18 07:36 04/14/18 07:36 Intake & Output 04/13/18 04/14/18 04/15/18 06:59 06:59 06:59 Intake Total 676 653 0.5 Output Total 1400 1400 Balance -724 653 -1399.5 Weight 66.1 kg 63.2 kg General appearance: PRESENT: no acute distress Respiratory exam: PRESENT: clear to auscultation debbie. ABSENT: crackles Cardiovascular exam: PRESENT: +S1, +S2 GI/Abdominal exam: PRESENT: normal bowel sounds, soft. ABSENT: tenderness Neurological exam: PRESENT: alert, awake, oriented to person, oriented to place Results Laboratory Results: 04/14/18 05:26 04/14/18 05:26 04/14/18 04/14/18 05:26 05:26 WBC 4.2 RBC 2.69 L Hgb 9.0 L Hct 26.8 L MCV 100 H MCH 33.6 H MCHC 33.7 RDW 14.9 H Plt Count 211 Sodium 136.2 L Potassium 4.6 Chloride 96 L Carbon Dioxide 32 H Anion Gap 8 BUN 15 Creatinine 5.97 H Est GFR ( Amer) 8 L Est GFR (Non-Af Amer) 7 L Glucose 74 L Calcium 7.6 L 04/08/18 04/08/18 13:27 13:27 Creatine Kinase 52 CK-MB (CK-2) 0.85 Troponin I 0.019 Impressions: Chest X-Ray 04/09/18 07:00 IMPRESSION: Interval slight worsening in appearance of the left chest. Known large left pleural effusion. Assessment & Plan - Diagnosis (1) ESRD (end stage renal disease) on dialysis Is this a current diagnosis for this admission?: Yes Plan: Patient seen on dialysis today. Its being supervised to ensure a safe and smooth procedure. her lines clotted and had to be reset and procedure re started without any issues. She denies any chest pains, dyspnea, fever or chills.Labs and medications were reviewed.Dialysis orders were reviewed with the treating desktop support manager.Will plan to remove 1-2 L as tolerated. (2) Large pleural effusion Is this a current diagnosis for this admission?: Yes Plan: s/p Thoracentesis.As per Dr Hinojosa (3) Diabetes mellitus type 2 in nonobese Is this a current diagnosis for this admission?: Yes Plan: Adv on tight control. (4) Systolic and diastolic CHF, chronic Is this a current diagnosis for this admission?: Yes Plan: Stable currently. (5) Anemia in chronic kidney disease Plan: Titrate EPO.
--- NOTE | 2018-04-14 20:09 | PDOC PROGRESS REPORT ---
Subjective Progress Note for:: 04/14/18 Reason For Visit: PLEURAL EFFUSION, HYPOXIA,HYPONATREMIA Physical Exam Vital Signs: Temp Pulse Resp BP Pulse Ox 98.3 F 76 20 115/44 L 96 04/14/18 19:00 04/14/18 19:00 04/14/18 19:00 04/14/18 19:00 04/14/18 19:00 Intake & Output 04/13/18 04/14/18 04/15/18 06:59 06:59 06:59 Intake Total 676 653 222.5 Output Total 1400 1400 Balance -724 653 -1177.5 Weight 66.1 kg 63.2 kg Results Laboratory Results: 04/14/18 05:26 04/14/18 05:26 04/14/18 04/14/18 05:26 05:26 WBC 4.2 RBC 2.69 L Hgb 9.0 L Hct 26.8 L MCV 100 H MCH 33.6 H MCHC 33.7 RDW 14.9 H Plt Count 211 Sodium 136.2 L Potassium 4.6 Chloride 96 L Carbon Dioxide 32 H Anion Gap 8 BUN 15 Creatinine 5.97 H Est GFR ( Amer) 8 L Est GFR (Non-Af Amer) 7 L Glucose 74 L Calcium 7.6 L 04/08/18 04/08/18 13:27 13:27 Creatine Kinase 52 CK-MB (CK-2) 0.85 Troponin I 0.019 Impressions: Chest X-Ray 04/09/18 07:00 IMPRESSION: Interval slight worsening in appearance of the left chest. Known large left pleural effusion. Assessment & Plan - Diagnosis (1) Large pleural effusion Is this a current diagnosis for this admission?: Yes (2) Chronic diastolic (congestive) heart failure Is this a current diagnosis for this admission?: Yes (3) ESRD (end stage renal disease) on dialysis Is this a current diagnosis for this admission?: Yes (4) Systolic and diastolic CHF, chronic Is this a current diagnosis for this admission?: Yes
--- NOTE | 2018-04-14 20:28 | PDOC DISCHARGE SUMMARY ---
General - Admit/Disc Date/PCP Admission Date/Primary Care Provider: 04/07/18 21:33 JOSE MANUEL MIX MD Discharge Date: 04/14/18 - Discharge Diagnosis (1) Large pleural effusion Is this a current diagnosis for this admission?: Yes (2) Chronic diastolic (congestive) heart failure Is this a current diagnosis for this admission?: Yes (3) ESRD (end stage renal disease) on dialysis Is this a current diagnosis for this admission?: Yes (4) Systolic and diastolic CHF, chronic Is this a current diagnosis for this admission?: Yes - Additional Information Discharge Diet: As Tolerated Discharge Activity: Activity As Tolerated Home Medications: Atorvastatin Calcium [Lipitor 80 mg Tablet] 80 mg PO DAILY 04/08/18 Levothyroxine Sodium [Synthroid] 150 mcg PO Q6AM 04/08/18 Amlodipine Besylate [Norvasc 10 mg Tablet] 10 mg PO DAILY 04/11/18 Clonidine HCl 0.2 mg PO QHS 04/11/18 Losartan Potassium 25 mg PO DAILY 04/11/18 Metoprolol Tartrate 25 mg PO DAILY 04/11/18 Atorvastatin Calcium [Lipitor 80 mg Tablet] 80 mg PO QHS tablet 04/14/18 History of Present Illness History of Present Illness: LOVELY ESPAÑA is a 77 year old female she was admitted when she presented with respiratory distress felt to be due to large pleural effusion Hospital Course Hospital Course: She was admitted for the management of large pleural effusion, she has end- stage renal disease on maintenance hemodialysis, there is a concern she may have pericardial effusion as well, a 2D echo was done, it demonstrated normal- sized left ventricle, ejection fraction of 55% with grade 1 diastolic dysfunction of the left ventricle, she has small pericardial effusion, she underwent thoracentesis, over 1000 cc of pleural fluid was drained. Patient had episode of acute delirium in the hospital she said she was trying to iain out demons and bad spirit. She was seen by nephrology Dr. Cruz Mendez and she underwent hemodialysis on this admission Physical Exam Vital Signs: Temp Pulse Resp BP Pulse Ox 98.3 F 76 20 115/44 L 96 04/14/18 19:00 04/14/18 19:00 04/14/18 19:00 04/14/18 19:00 04/14/18 19:00 Intake & Output 10/10/2604/14/18 04/15/18 06:59 06:59 06:59 Intake Total 676 653 222.5 Output Total 1400 1400 Balance -724 653 -1177.5 Weight 66.1 kg 63.2 kg General appearance: PRESENT: no acute distress Eye exam: PRESENT: PERRLA Respiratory exam: PRESENT: clear to auscultation debbie Cardiovascular exam: PRESENT: +S1, +S2 GI/Abdominal exam: PRESENT: soft Neurological exam: PRESENT: alert Results Laboratory Results: 04/14/18 05:26 04/14/18 05:26 04/14/18 04/14/18 05:26 05:26 WBC 4.2 RBC 2.69 L Hgb 9.0 L Hct 26.8 L MCV 100 H MCH 33.6 H MCHC 33.7 RDW 14.9 H Plt Count 211 Sodium 136.2 L Potassium 4.6 Chloride 96 L Carbon Dioxide 32 H Anion Gap 8 BUN 15 Creatinine 5.97 H Est GFR ( Amer) 8 L Est GFR (Non-Af Amer) 7 L Glucose 74 L Calcium 7.6 L 04/08/18 04/08/18 13:27 13:27 Creatine Kinase 52 CK-MB (CK-2) 0.85 Troponin I 0.019 Impressions: Chest X-Ray 04/09/18 07:00 IMPRESSION: Interval slight worsening in appearance of the left chest. Known large left pleural effusion. Qualifiers - * PATIENT BEING DISCHARGED WITH ANY OF THE FOLLOWING DIAGNOSIS: No
[2018-04-14] MEDS: ATORVASTATIN CALCIUM 80 MG TABLET PO SCH (21:42)
[2018-04-15] MEDS: LEVOTHYROXINE SODIUM 0.15 MG TABLET PO SCH (05:33)
[2018-04-15 09:25] VITALS: BP 131/54
== END 2018-04-15 10:10 | disposition home or self-care (01) | DRG 291 ==
LOC: ER 16:33 → EH 21:33 → 4N 23:14
PROVIDERS: ADMIT Internal Medicine Geriatric Medicine; ATTEND Internal Medicine
PROC: 0W9B3ZX Drainage of Left Pleural Cavity, Percutaneous Approach, Diagnostic (ICD-10-PCS; principal; 2018-04-09)
PROC: 5A1D70Z Performance of Urinary Filtration, Intermittent, Less than 6 Hours Per Day (ICD-10-PCS; 2018-04-10)
DX: I13.2 Hypertensive heart and chronic kidney disease with heart failure and with stage 5 chronic kidney disease, or end stage renal disease (principal); N18.6 End stage renal disease; J90 Pleural effusion, not elsewhere classified; I50.32 Chronic diastolic (congestive) heart failure; E87.1 Hypo-osmolality and hyponatremia; E11.22 Type 2 diabetes mellitus with diabetic chronic kidney disease; I27.20 Pulmonary hypertension, unspecified; E03.9 Hypothyroidism, unspecified; D63.1 Anemia in chronic kidney disease; E78.5 Hyperlipidemia, unspecified; R09.02 Hypoxemia; I25.2 Old myocardial infarction; Z99.2 Dependence on renal dialysis
CPT/HCPCS: 36415; 71045; 71046; 76604; 80048; 80053; 82533; 82550; 82553; 82962; 83735; 84484; 85025; 85027; 85610; 85730; 87070; 87075; 87205; 88305; 93005; 93010; 93306; 94640; 99285; G8978-GP; G8979-GP; J3490; J7620; Q4081

== ENCOUNTER 2018-04-24 17:01 | Emergency (ER) | payer MEDICARE ==
--- NOTE | 2018-04-24 18:35 | ER Document Report ---
ED Dialysis Cath/Shunt Problem - General Chief Complaint: Dialysis Shunt Problem Stated Complaint: FISTULA BLEEDING Time Seen by Provider: 04/24/18 18:13 Mode of Arrival: Ambulatory Information source: Patient Notes: Patient said after dialysis this afternoon, she noticed that her dialysis graft is bleeding. TRAVEL OUTSIDE OF THE [place] IN LAST 30 DAYS: No - HPI Onset: Just prior to arrival Onset/Duration: Sudden Quality of pain: No pain Severity: Mild Pain Level: 1 AV Fistula Assessment: Thrill Palpated, Bruit Auscultated Hemo-Dialysis Treatment Today: Yes Associated symptoms: None Exacerbated by: Denies Relieved by: Denies Recently seen / treated by doctor: Yes - Related Data Allergies/Adverse Reactions: adhesive tape Allergy (Intermediate, Verified 08/23/17 10:21) Generalized rash Past Medical History - Social History Smoking Status: Unknown if Ever Smoked Family History: CAD, Hypertension, Other - Kidney disease Patient has suicidal ideation: No Patient has homicidal ideation: No - Past Medical History Cardiac Medical History: Reports: Hx Heart Attack - 2017, Hx Hypercholesterolemia, Hx Hypertension Denies: Hx Coronary Artery Disease Pulmonary Medical History: Denies: Hx Asthma, Hx Bronchitis, Hx COPD, Hx Pneumonia, Hx Tuberculosis Neurological Medical History: Reports: Hx Cerebrovascular Accident - 2009. Denies: Hx Seizures Endocrine Medical History: Reports: Hx Diabetes Mellitus Type 2, Hx Hypothyroidism Renal/ Medical History: Reports: Hx End Stage Renal Disease. Denies: Hx Peritoneal Dialysis Musculoskeletal Medical History: Reports Hx Arthritis Past Surgical History: Reports: Hx Cardiac Catheterization - Possible cardiac catheterization with stent placement. Records are pending, Hx Cholecystectomy. Denies: Hx Pacemaker - Immunizations Hx Diphtheria, Pertussis, Tetanus Vaccination: No Hx Pneumococcal Vaccination: 04/19/12 Review of Systems - Review of Systems Constitutional: No symptoms reported EENT: No symptoms reported Cardiovascular: No symptoms reported Respiratory: No symptoms reported Gastrointestinal: No symptoms reported Genitourinary: No symptoms reported Female Genitourinary: No symptoms reported Musculoskeletal: Other - Bleeding from the dialysis access site. Skin: No symptoms reported Hematologic/Lymphatic: No symptoms reported Neurological/Psychological: No symptoms reported -: Yes All other systems reviewed and negative Physical Exam - Vital signs Vitals: Pulse Ox 100 04/24/18 20:21 Interpretation: Normal - General General appearance: Appears well, Alert - HEENT Head: Normocephalic, Atraumatic Eyes: Normal Pupils: PERRL - Respiratory Respiratory status: No respiratory distress Chest status: Nontender Breath sounds: Normal Chest palpation: Normal - Cardiovascular Rhythm: Regular Heart sounds: Normal auscultation Murmur: No - Abdominal Inspection: Normal Distension: No distension Bowel sounds: Normal Tenderness: Nontender Organomegaly: No organomegaly - Back Back: Normal, Nontender - Extremities General upper extremity: Nontender, Normal color, Normal ROM, Normal temperature , Other General lower extremity: Normal inspection, Nontender, Normal color, Normal ROM - There is a pressure on the left arm at the bleeding site., Normal temperature , Normal weight bearing. No: Amor's sign Arm: Other - Bleeding is controlled currently. - Neurological Neuro grossly intact: Yes Cognition: Normal Orientation: AAOx4 Amrik Coma Scale Eye Opening: Spontaneous Amrik Coma Scale Verbal: Oriented Keeling Coma Scale Motor: Obeys Commands Amrik Coma Scale Total: 15 Speech: Normal Motor strength normal: LUE, RUE, LLE, RLE Sensory: Normal - Psychological Associated symptoms: Normal affect, Normal mood - Skin Skin Temperature: Warm Skin Moisture: Dry Skin Color: Normal Course - Re-evaluation Re-evalutation: 04/25/18 03:29 On reevaluation, patient bleeding has stopped. - Vital Signs Vital signs: Temp Pulse Resp BP Pulse Ox 18 100/78 98 04/25/18 00:00 04/24/18 23:01 04/24/18 23:01 - Laboratory Result Diagrams: 04/24/18 21:06 04/24/18 21:06 Laboratory results interpreted by me: 04/24/18 04/24/18 21:06 21:06 RBC 2.68 L Hgb 8.9 L Hct 26.6 L MCV 99 H RDW 15.6 H Potassium 3.2 L Carbon Dioxide 31 H Creatinine 4.42 H Est GFR ( Amer) 12 L Est GFR (Non-Af Amer) 10 L Glucose 113 H Calcium 7.8 L Albumin 3.2 L Discharge - Discharge Clinical Impression: ESRD (end stage renal disease) on dialysis Hemodialysis graft malfunction Qualifiers: Encounter type: initial encounter Qualified Code(s): T82.41XA - Breakdown ( mechanical) of vascular dialysis catheter, initial encounter Condition: Stable Disposition: HOME, SELF-CARE Additional Instructions: Please follow up with your regular doctor tomorrow morning. Return to the ED if your condition worsens. Referrals: JOSE MANUEL MIX MD [Primary Care Provider] - Follow up as needed
[2018-04-24 21:20] LABS: ABSOLUTE BASOPHILS # (AUTO) 0.1 10^3/uL (0.0-0.2); ABSOLUTE EOSINOPHILS # (AUTO) 0.1 10^3/uL (0.0-0.6); ABSOLUTE MONOCYTES (AUTO) 0.3 10^3/uL (0.1-1.4); ABSOLUTE NEUT (AUTO) 3.3 10^3/uL (1.7-8.2); BASOPHILS % (AUTO) 1.5 % (0-2); EOSINOPHILS % (AUTO) 3.1 % (0-6); HEMATOCRIT 26.6 % (36.0-47.0); HEMOGLOBIN 8.9 g/dL (12.0-15.5); LYMPHOCYTES % (AUTO) 19.7 % (13-45); MEAN CORPUSCULAR HEMOGLOBIN 33.1 pg (27.0-33.4); MEAN CORPUSCULAR HGB CONC 33.4 g/dL (32.0-36.0); MEAN CORPUSCULAR VOLUME 99 fl (80-97); MONOCYTES % (AUTO) 7.2 % (3-13); PLATELET COUNT 220 10^3/uL (150-450); RED BLOOD COUNT 2.68 10^6/uL (3.72-5.28); RED CELL DISTRIBUTION WIDTH 15.6 % (11.5-14.0); SEGMENTED NEUTROPHILS % (AUTO) 68.5 % (42-78); TOTAL CELLS COUNTED % (AUTO) 100 %; WHITE BLOOD COUNT 4.9 10^3/uL (4.0-10.5)
[2018-04-24 21:28] LABS: INTERNATIONAL RATION (INR) 0.94
[2018-04-24 21:29] LABS: PARTIAL THROMBOPLASTIN TIME 34.3 SEC (23.5-35.8)
[2018-04-24 21:42] LABS: ALANINE AMINOTRANSFERASE 11 U/L (9-52); ALBUMIN 3.2 g/dL (3.5-5.0); ALKALINE PHOSPHATASE 77 U/L (38-126); ANION GAP 11 (5-19); ASPARTATE AMINO TRANSFERASE 19 U/L (14-36); BILIRUBIN,DIRECT 0.4 mg/dL (0.0-0.4); BILIRUBIN,TOTAL 0.4 mg/dL (0.2-1.3); BLOOD UREA NITROGEN 10 mg/dL (7-20); CALCIUM 7.8 mg/dL (8.4-10.2); CARBON DIOXIDE 31 mmol/L (22-30); CHLORIDE 98 mmol/L (98-107); GLUCOSE 113 mg/dL (75-110); POTASSIUM 3.2 mmol/L (3.6-5.0); SODIUM 140.1 mmol/L (137-145); TOTAL PROTEIN 6.4 g/dL (6.3-8.2)
[2018-04-25 00:12] VITALS: BP 100/78
== END 2018-04-25 01:25 | disposition home or self-care (01) ==
LOC: ER 17:01
DX: T82.41XA Breakdown (mechanical) of vascular dialysis catheter, initial encounter (principal); E11.22 Type 2 diabetes mellitus with diabetic chronic kidney disease; I12.0 Hypertensive chronic kidney disease with stage 5 chronic kidney disease or end stage renal disease; N18.6 End stage renal disease; X58.XXXA Exposure to other specified factors, initial encounter; Z99.2 Dependence on renal dialysis; Z86.73 Personal history of transient ischemic attack (TIA), and cerebral infarction without residual deficits; Z90.49 Acquired absence of other specified parts of digestive tract
CPT/HCPCS: 36415; 80053; 85025; 85610; 85730; 99284

== ENCOUNTER 2018-05-29 10:53 | Emergency (ER) | payer MEDICARE ==
[2018-05-29] MEDS ORDERED: LIDOCAINE 5% (700 MG) TRANSDERMAL ADH..PATCH TP ONE (11:16)
--- NOTE | 2018-05-29 11:22 | ER Document Report ---
ED General - General Chief Complaint: Fall Injury Stated Complaint: FALL,BACK PAIN Time Seen by Provider: 05/29/18 11:04 TRAVEL OUTSIDE OF THE [place] IN LAST 30 DAYS: No - HPI Notes: Patient is a 77-year-old female with a history of congestive heart failure, end- stage renal disease (on dialysis T//Tue), previous stroke who presents to the ED complaining of right low back pain status post fall from her bed x2 this morning. Patient states that she is running a bit when she misplaced her footing and landed on her back/right hip/lower right ribs. Patient states that she then fell again on the same side. Patient states that both falls were due in proper footing. She otherwise feels well. She has been eating and drinking without any difficulties. She is urinating normally and having normal bowel movements. Patient states that she is here for her back and nothing else at this time. Denies any headache, fever, LOC, head injury, neck pain, changes in vision/speech/mentation/hearing, URI, sore throat, chest pain, palpitations, syncope, cough, shortness of breath, wheeze, dyspnea, abdominal pain, nausea/ vomiting/diarrhea, urinary retention, dysuria, hematuria, loss of control of bowel or bladder, numbness/tingling, saddle anesthesia, muscle paralysis, or rash. - Related Data Allergies/Adverse Reactions: adhesive tape Allergy (Intermediate, Verified 08/23/17 10:21) Generalized rash Past Medical History - Social History Smoking Status: Unknown if Ever Smoked Family History: CAD, Hypertension, Other - Kidney disease - Past Medical History Cardiac Medical History: Reports: Hx Heart Attack - 2017, Hx Hypercholesterolemia, Hx Hypertension Denies: Hx Coronary Artery Disease Pulmonary Medical History: Denies: Hx Asthma, Hx Bronchitis, Hx COPD, Hx Pneumonia, Hx Tuberculosis Neurological Medical History: Reports: Hx Cerebrovascular Accident - 2010. Denies: Hx Seizures Endocrine Medical History: Reports: Hx Diabetes Mellitus Type 2, Hx Hypothyroidism Renal/ Medical History: Reports: Hx End Stage Renal Disease. Denies: Hx Peritoneal Dialysis Musculoskeletal Medical History: Reports Hx Arthritis Past Surgical History: Reports: Hx Cardiac Catheterization - Possible cardiac catheterization with stent placement. Records are pending, Hx Cholecystectomy. Denies: Hx Pacemaker - Immunizations Hx Diphtheria, Pertussis, Tetanus Vaccination: No Hx Pneumococcal Vaccination: 04/19/12 Review of Systems - Review of Systems -: Yes All other systems reviewed and negative Physical Exam - Vital signs Vitals: Temp Pulse Resp BP Pulse Ox 98.5 F 56 L 16 154/62 H 96 05/29/18 11:10 05/29/18 11:10 05/29/18 11:10 05/29/18 11:10 05/29/18 11:10 - Notes Notes: PHYSICAL EXAMINATION: GENERAL: Well-appearing, well-nourished and in no acute distress. A&Ox4. Answers questions appropriately. Pleasant. Head: Atraumatic, normocephalic. LUNGS: Breath sounds clear to auscultation bilaterally and equal. No wheezes rales or rhonchi. HEART: Regular rate and rhythm without murmurs, rubs, gallops. ABDOMEN: Soft, nontender, nondistended abdomen. No guarding, no rebound. No masses appreciated. Normal bowel sounds present. No CVA tenderness bilaterally. No pulsatile mass Musculoskeletal: LE's b/l: FROM to passive/active. Strength 5+/5. No deficits noted. No bony tenderness of extremities. Back: LROM to passive/active due to pain. Strength 5+/5. No vertebral point tenderness, stepoffs, or deformities. No other erythema, swelling, or ecchymosis. SLR negative b/l. + tenderness to the Rt L-paraspinal area, rt lower medial ribs, and rt superior iliac (correlates with pain described). No SI jt tenderness. No foot drop Extremities: No cyanosis, clubbing, or edema b/l. Peripheral pulses 2+. Capillary refill less than 2 seconds. NEUROLOGICAL: Normal speech, ataxic gait. Normal sensory, motor exams. Reflexes 2+ b/l. PSYCH: Normal mood, normal affect. SKIN: Warm, Dry, normal turgor, no rashes or lesions noted. Course - Re-evaluation Re-evalutation: 05/29/18 13:52 Patient is an afebrile, well-hydrated, 77-year-old female who presents to the ED with left low back pain/rib/hip which I suspect to be a contusion. Vitals are acceptable without any significant tachycardia, tachypnea, or hypoxia. PE is otherwise unremarkable for any neurovascular compromise, obvious tendon/ ligament rupture, obvious fracture/dislocation, septic joint. CT scan of the L- spine/hips and rib X-ray were unremarkable for any acute pathology. Lidoderm patch placed. Pt declined tylenol. Patient is nontoxic-appearing. Patient was able to ambulate around the room and up and down part of the hallway without any discomfort. No other labs or imaging warranted at this time based on H&P. Conservative measures otherwise for symptoms. Recheck with your PCM in 3-5 days. Consider consult orthopedics. Return to the ED with any worsening /concerning symptoms otherwise as reviewed in discharge. Patient is in agreement. - Vital Signs Vital signs: Temp Pulse Resp BP Pulse Ox 98.5 F 56 L 16 154/62 H 96 05/29/18 11:10 05/29/18 11:10 05/29/18 11:10 05/29/18 11:10 05/29/18 11:10 Discharge - Discharge Clinical Impression: Rib pain on right side Low back pain Qualifiers: Chronicity: acute Back pain laterality: right Sciatica presence: without sciatica Qualified Code(s): M54.5 - Low back pain Condition: Stable Disposition: HOME, SELF-CARE Additional Instructions: Rest, Ice Tylenol/ibuprofen as needed Light stretches daily Strength exercises as able Moist heat and massage may help F/u with your PCP in 3-5 days for a recheck Consider consult(s) with Orthopedics/physical therapy for ongoing/worsening symptoms Return to the ED with any worsening symptoms and/or development of fever, headache, chest pain, palpitations, syncope, shortness of breath, trouble breathing, abdominal pain, n/v/d, blood in stool/urine, loss of control of bowel /bladder, urinary retention, muscle weakness/paralysis, saddle anesthesia, numbness/tingling, or other worsening symptoms that are concerning to you. Forms: Elevated Blood Pressure Referrals: JOSE MANUEL MIX MD [Primary Care Provider] - Follow up in 3-5 days [facility] [Provider Group] - Follow up as needed
--- NOTE | 2018-05-29 12:24 | RADIOLOGY REPORT (SQ) ---
EXAM DESCRIPTION: RIBS RIGHT W/O PA CHEST COMPLETED DATE/TIME: 05/29/2018 12:11 pm REASON FOR STUDY: Rt lower rib/back pain s/p fall COMPARISON: Chest radiograph, 04/09/2018 NUMBER OF VIEWS: Three views. TECHNIQUE: Images acquired of the right ribs in the area of focal concern. LIMITATIONS: None. FINDINGS: RIBS: No acute displaced fracture. No worrisome bone lesions. LUNGS: Limited exam. No obvious pneumothorax. No pleural effusion. OTHER: Cardiomegaly with a redemonstrated left pleural effusion/ pleural thickening and associated at electasis or consolidation. IMPRESSION: 1. No displaced rib fracture. No pneumothorax or right-sided pleural effusion. 2. Cardiomegaly with a redemonstrated left pleural effusion/ pleural thickening and associated atele ctasis or consolidation. COMMENT: SITE OF TRAUMA/COMPLAINT MARKED/STAMP COMPLETED: YES. TECHNICAL DOCUMENTATION: JOB ID: [id number] [employer]- All Rights Reserved Reading location - IP/workstation name: [email or web address]
--- NOTE | 2018-05-29 12:41 | RADIOLOGY REPORT (SQ) ---
EXAM DESCRIPTION: CT LUMBAR SPINE WITHOUT COMPLETED DATE/TIME: 05/29/2018 12:18 pm REASON FOR STUDY: low back/rt superior hip pain s/p fall COMPARISON: None. TECHNIQUE: Axial images acquired through the lumbar spine without intravenous contrast. Images revi ewed with lung, soft tissue and bone windows. Reconstructed coronal and sagittal MPR images reviewed . All images stored on PACS. All CT scanners at this facility use dose modulation, iterative reconstruction, and/or weight based d osing when appropriate to reduce radiation dose to as low as reasonably achievable (ALARA). [facility]: Dose Right [facility]: CareDose [facility]: Dose Right [facility]: Teradose 4D [facility]: [employer]plex RADIATION DOSE: mGy. LIMITATIONS: Bony structures are diffusely osteopenic which decreases the sensitivity for occult fra ctures. FINDINGS: SEGMENTATION: Normal. No transitional anatomy. ALIGNMENT: There is a minimal lumbar scoliosis convex to the right inferiorly into the left superiorl y. VERTEBRAL BODIES: There is impingement on the superior and inferior endplates of the lumbar vertebra at multiple levels which have the appearance of multiple Schmorl's nodes. The possibility of 1 or mo re of these representing an acute finding cannot be excluded. No significant overall vertebral compr ession is identified. No obvious fractures are identified. DISCS: No significant protrusions. Study limited by lack of intrathecal contrast. PEDICLES, TRANSVERSE PROCESSES: No fractures. No dislocation. No acute findings. FACETS, POSTERIOR ELEMENTS: No fractures. No dislocation. No spinal stenosis. HARDWARE: None in the spine. VISUALIZED RIBS: No fractures. SOFT TISSUES: No significant or acute finding in adjacent soft tissues. OTHER: No other significant finding. IMPRESSION: Minimal lumbar scoliosis is noted above. There is impingement on the superior and infer ior endplates of the lumbar vertebra at multiple levels as noted above which have the appearance of m ultiple Schmorl's nodes. The possibility of 1 or more of these representing an acute finding cannot be excluded. Clinical correlation is recommended. Other findings as noted above. TECHNICAL DOCUMENTATION: JOB ID: [id number] Quality ID # [id number]: Final reports with documentation of one or more dose reduction techniques (e.g., Au tomated exposure control, adjustment of the mA and/or kV according to patient size, use of iterative reconstruction technique) 2010 [employer]- All Rights Reserved Reading location - IP/workstation name: [email or web address]
--- NOTE | 2018-05-29 12:41 | RADIOLOGY REPORT (SQ) ---
EXAM DESCRIPTION: CT PELVIS WITHOUT COMPLETED DATE/TIME: 05/29/2018 12:18 pm REASON FOR STUDY: Low back/rt superior hip pain s/p fall COMPARISON: None. TECHNIQUE: CT scan of the pelvis performed without intravenous or oral contrast. Images reviewed wi th soft tissue and bone windows. Reconstructed coronal and sagittal MPR images reviewed. All images stored on PACS. All CT scanners at this facility use dose modulation, iterative reconstruction, and/or weight based d osing when appropriate to reduce radiation dose to as low as reasonably achievable (ALARA). [facility]: Dose Right [facility]: CareDose [facility]: Dose Right [facility]: Teradose 4D [facility]: [employer] RADIATION DOSE: CT Rad equipment meets quality standard of care and radiation dose reduction techniq ues were employed. CTDIvol: 7.3 mGy. DLP: 280 mGy-cm. mGy. LIMITATIONS: None. FINDINGS: PELVIC BONES: No acute fracture. No worrisome bone lesions. VISUALIZED SPINE: No acute findings. HIP(S): No acute fracture or dislocation. No worrisome bone lesions. PELVIC SOFT TISSUES: Calcific atherosclerosis. EXTRAPELVIC SOFT TISSUES: No significant findings. OTHER: No other significant finding. IMPRESSION: No displaced fracture of the sacrum or pelvis. TECHNICAL DOCUMENTATION: JOB ID: [id number] Quality ID # 436: Final reports with documentation of one or more dose reduction techniques (e.g., Au tomated exposure control, adjustment of the mA and/or kV according to patient size, use of iterative reconstruction technique) 2010 [employer]- All Rights Reserved Reading location - IP/workstation name: [id number]
[2018-05-29 14:05] VITALS: BP 163/73
== END 2018-05-29 14:20 | disposition home or self-care (01) ==
LOC: ER 10:53
DX: R07.81 Pleurodynia (principal); M54.5 Low back pain; M54.9 Dorsalgia, unspecified; I13.2 Hypertensive heart and chronic kidney disease with heart failure and with stage 5 chronic kidney disease, or end stage renal disease; E11.22 Type 2 diabetes mellitus with diabetic chronic kidney disease; N18.6 End stage renal disease; I50.9 Heart failure, unspecified; Z99.2 Dependence on renal dialysis; W19.XXXA Unspecified fall, initial encounter; Y93.02 Activity, running
CPT/HCPCS: 72131; 72192; 99284

== ENCOUNTER 2018-09-12 08:55 | Day surgery (SDC) | payer MEDICARE ==
[2018-09-12] MEDS ORDERED: FENTANYL CITRATE INJ/PF 100 MCG/2 ML AMPUL ONE (09:27)
[2018-09-12] MEDS ORDERED: LIDOCAINE 0.5% INJ-PF (5 MG/ML) 50 ML SDV ONE (09:27)
[2018-09-12] MEDS ORDERED: MIDAZOLAM 2 MG/2 ML INJ ONE (09:27)
[2018-09-12] MEDS ORDERED: HEPARIN SOD (PORCINE) 5,000 UNIT/ML 1 ML SYRINGE ONE (09:27)
[2018-09-12 10:59] LABS: ANION GAP 14 (5-19); BLOOD UREA NITROGEN 19 mg/dL (7-20); CALCIUM 9.3 mg/dL (8.4-10.2); CARBON DIOXIDE 30 mmol/L (22-30); CHLORIDE 97 mmol/L (98-107); GLUCOSE 79 mg/dL (75-110); HEMATOCRIT 35.4 % (36.0-47.0); HEMOGLOBIN 11.8 g/dL (12.0-15.5); MEAN CORPUSCULAR HEMOGLOBIN 34.4 pg (27.0-33.4); MEAN CORPUSCULAR HGB CONC 33.2 g/dL (32.0-36.0); MEAN CORPUSCULAR VOLUME 104 fl (80-97); PLATELET COUNT 220 10^3/uL (150-450); POTASSIUM 4.3 mmol/L (3.6-5.0); RED BLOOD COUNT 3.42 10^6/uL (3.72-5.28); RED CELL DISTRIBUTION WIDTH 19.3 % (11.5-14.0); SODIUM 140.9 mmol/L (137-145); WHITE BLOOD COUNT 3.8 10^3/uL (4.0-10.5)
--- NOTE | 2018-09-12 12:14 | Discharge Summary ---
Discharge Summary (SDC) - Discharge Final Diagnosis: #1 malfunctioning left arm transposed basilic fistula. 2. End-stage renal disease on hemodialysis. 3. Diabetes mellitus type 2 in nonobese. 4. Hypertension. Date of Surgery: 09/12/18 Discharge Date: 09/12/18 Condition: Fair Forms: Sedation D/C Instructions, Discharge POC-Surgical Service Treatment or Instructions: Discharge home [after recovery per ASU criteria]. Diet , [renal],as tolerated, when fully awake advance as tolerated. Activities within moderation encouraged. Follow up in my office by appointment in about 1 month. Call for appointment. Leave wounds [covered], [keep clean and dry, until hemodialysis]. Meds per med rec. May shower [in 48 hrs], [try to keep operated area as dry as possible]. Referrals: OMKAR DUNN MD [ACTIVE STAFF] - Discharge Diet: Other (Comments) - Renal, diabetic. Respiratory Treatments at Home: Deep Breathing/Coughing Discharge Activity: Activity As Tolerated Report the Following to Your Physician Immediately: Shortness of Breath, Unusual Bleeding
--- NOTE | 2018-09-12 12:19 | Operative Report ---
Operative Report DATE OF SURGERY: 09/12/18 PREOPERATIVE DIAGNOSIS: #1 malfunctioning left arm transposed basilic fistula. 2. End-stage renal disease on hemodialysis. 3. Diabetes mellitus type 2 in nonobese. 4. Hypertension. POSTOPERATIVE DIAGNOSIS: #1 malfunctioning left arm transposed basilic fistula. 2. End-stage renal disease on hemodialysis. 3. Diabetes mellitus type 2 in nonobese. 4. Hypertension. OPERATION: 1. Needle entry into the fistula. 2. Angioplasty central. 3. Angioplasty peripheral. 4. Angiogram and interpretation. SURGEON: OMKAR QUEVEDO RESTORATIVE COORDINATOR: None. ANESTHESIA: Moderate Sedation TISSUE REMOVED OR ALTERED: Not applicable. COMPLICATIONS: None. ESTIMATED BLOOD LOSS: 5 mL. INTRAOPERATIVE FINDINGS: Of a well founded left arm transposed basilic vein fistula. 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 Hyper pulsatility initially. After angioplasty normal. Stenosis noted at the cephalic to subclavian border estimated to be 70% of the adjacent stenosis. Well seen on angioplasty with a 9 mm balloon, waist eliminated. Stenosis noted at about 32 cm in about 20 cm. Each of these represents about 70% of the adjacent lumen. Corrected by angioplasty with a 9 mm balloon. PROCEDURE: PROCEDURE: After verifying the procedure and having obtained informed consent, the patient's left arm was prepared with Chlorhexidine and draped out with sterile linen. Local anesthesia infiltrated. Percutaneous access into the fistula ,[ antegrade], obtained about [6 cm] from the arteriovenous anastomosis using a micro puncture needle followed by micro puncture wire and then a micro puncture catheter. A 0.035 Carey wire was inserted, and over this, a 7 Tongan short introducer was placed.Angiogram demonstrated the aforementioned findings. Angioplasty was elected. , this was followed by a [9 -mm] angioplasty balloon . Angioplasty was serially done at the subclavian cephalic junction. Inflating using a 3 mils syringe for 3 minutes at the time.]. Completion angiogram demonstrated [satisfactory result].. The 9 mm angioplasty balloon was now drawn to the 30 cm area and then the 20 cm area and dilatations done at those levels for 2 minutes each using a 3 mils syringe. Completion angiogram was satisfactory. The instrumentation was now withdrawn over hand pressure for 10 minutes . Dressings applied, procedure concluded. Exposure time: 0.6 minutes. Radiation: 20.14 Marva gonzales. Contrast: 25 mils of Omnipaque Isovue-300. DICTATING PHYSICIAN: OMKAR DUNN M.D. cc: OMKAR DUNN M.D. ([id number]) >>
[2018-09-12 14:11] VITALS: BP 155/66
--- NOTE | 2018-09-12 16:34 | RADIOLOGY REPORT (SQ) ---
EXAM DESCRIPTION: FISTULAGRAM W/PLASTY; ANGIOPLASTY BRACHIOCEPHALIC COMPLETED DATE/TIME: 09/12/2018 2:46 pm; 09/12/2018 2:53 pm REASON FOR STUDY: T82.858A T82.858A STENOSIS OF OTHER VASCULAR PROSTH DEV/GRFT, INIT COMPARISON: 03/09/2018 FLUOROSCOPY TIME: 0.6 minutes 77 digital radiographic images saved to PACS. TECHNIQUE: Intra-operative images acquired during surgical procedure to evaluate progress. NUMBER OF IMAGES: 77 digital radiographic images LIMITATIONS: None. FINDINGS: Intra procedural imaging and fluoro during evaluation and plasty of left upper extremity d ialysis access by Dr. Gomez. IMPRESSION: Intra procedural imaging and fluoro COMMENT: Quality ID 145: Final reports for procedures using fluoroscopy that document radiation exp osure indices, or exposure time and number of fluorographic images (if radiation exposure indices are not available) Please consult full operative report of the attending physician for description of the procedure. TECHNICAL DOCUMENTATION: JOB ID: [id number] [employer]- All Rights Reserved Reading location - IP/workstation name: [email or web address]
--- NOTE | 2018-09-12 16:34 | RADIOLOGY REPORT (SQ) ---
EXAM DESCRIPTION: FISTULAGRAM W/PLASTY; ANGIOPLASTY BRACHIOCEPHALIC COMPLETED DATE/TIME: 09/12/2018 2:46 pm; 09/12/2018 2:53 pm REASON FOR STUDY: T82.858A T82.858A STENOSIS OF OTHER VASCULAR PROSTH DEV/GRFT, INIT COMPARISON: 03/09/2018 FLUOROSCOPY TIME: 0.6 minutes 77 digital radiographic images saved to PACS. TECHNIQUE: Intra-operative images acquired during surgical procedure to evaluate progress. NUMBER OF IMAGES: 77 digital radiographic images LIMITATIONS: None. FINDINGS: Intra procedural imaging and fluoro during evaluation and plasty of left upper extremity d ialysis access by Dr. Gomez. IMPRESSION: Intra procedural imaging and fluoro COMMENT: Quality ID 145: Final reports for procedures using fluoroscopy that document radiation exp osure indices, or exposure time and number of fluorographic images (if radiation exposure indices are not available) Please consult full operative report of the attending physician for description of the procedure. TECHNICAL DOCUMENTATION: JOB ID: [id number] [employer]- All Rights Reserved Reading location - IP/workstation name: [email or web address]
--- NOTE | 2018-09-12 17:30 | PDOC H&P ---
General Chief Complaint: This patient presents with malfunctioning left arm transposed basilic vein fistula. Increased bleeding increased pressure noted on dialysis. - Current Medications/Allergies Home Medications: Atorvastatin Calcium [Lipitor 80 mg Tablet] 80 mg PO DAILY 04/08/18 Levothyroxine Sodium [Synthroid] 150 mcg PO Q6AM 04/08/18 Aspirin [Lo-Dose Aspirin EC] 81 mg PO DAILY 09/12/18 Allergies/Adverse Reactions: adhesive tape Allergy (Intermediate, Verified 09/12/18 09:24) Generalized rash Past Medical History Cardiac Medical History: Reports: Myocardial Infarction - 2017; POSSIBLE CARDIAC STENT PLACEMENT "TO KEEP THE VALVE OPEN", Hyperlipidema, Hypertension - HX. OF, CURRENTLY OFF HER HTN MEDS DUE TO LOW BP Denies: Coronary Artery Disease Pulmonary Medical History: Reports: Pneumonia - NOVEMBER 2017 Denies: Asthma, Bronchitis, Chronic Obstructive Pulmonary Disease (COPD), Tuberculosis Neurological Medical History: Denies: Seizures Endocrine Medical History: Reports: Diabetes Mellitus Type 2, Hypothyroidism Renal/ Medical History: Reports: End Stage Renal Disease Musculoskeltal Medical History: Reports: Arthritis Hematology: Reports: Anemia - PER PREVIOUS CHARTS Past Surgical History Past Surgical History: Reports: Cardiac Catheterization - Possible cardiac catheterization with stent placement. Records are pending, Cholecystectomy Denies: Pacemaker Family History Family History: CAD, Hypertension, Other - Kidney disease Parental Family History Reviewed: No Children Family History Reviewed: No Sibling(s) Family History Reviewed.: No Social History Smoking Status: Never Smoker Frequency of Alcohol Use: None Hx Recreational Drug Use: No Hx Prescription Drug Abuse: No Physical Exam Vital Signs: Temp Pulse Resp BP Pulse Ox 97.8 F 60 18 155/66 H 99 09/12/18 08:51 09/12/18 13:21 09/12/18 13:21 09/12/18 13:21 09/12/18 13:21 Intake & Output 09/11/18 09/12/18 09/13/18 06:59 06:59 06:59 Weight 65.3 kg Additional comments: Constitutional: Well-developed well-nourished -[place] lady, mildly increased body mass index. No apparent acute distress. Eyes: Blind, opaque cornea. ENT: Hearing grossly normal. External pinna normal to inspection. Teeth partly intact. Tongue normal to inspection. Cardiac: Heart sounds 1 and 2 normal. Respiratory: Normal respiratory effort. Psychiatric: Judgment, memory, insight seem normal. Mood is pleasant and appropriate. Extremities: Upper extremities show normal range of movement. Pulses present noted to the radial arteries. Capillary refill normal. No cyanosis noted. No muscle wasting noted. Left arm transposed basilic vein fistula, mature. Approximately 10 cm long by about 3 cm wide aneurysmal dilatation. Skin intact and fairly healthy. [place] mendoza noted. Somewhat firm suggestive of cephalad stenosis. Impression/Plan Plan: This patient with probable central stenosis is dictated for angiogram and possibly angioplasty. The procedure, its risks, benefits, expected outcome and alternatives are familiar to the patient and she wishes to proceed.
== END 2018-09-12 13:45 | disposition home or self-care (01) ==
LOC: CCL 08:55
PROVIDERS: ATTEND Surgery
DX: T82.858A Stenosis of other vascular prosthetic devices, implants and grafts, initial encounter (principal); Y83.2 Surgical operation with anastomosis, bypass or graft as the cause of abnormal reaction of the patient, or of later complication, without mention of misadventure at the time of the procedure; I12.0 Hypertensive chronic kidney disease with stage 5 chronic kidney disease or end stage renal disease; E11.22 Type 2 diabetes mellitus with diabetic chronic kidney disease; N18.6 End stage renal disease; Z99.2 Dependence on renal dialysis; I25.2 Old myocardial infarction; E78.5 Hyperlipidemia, unspecified; E03.9 Hypothyroidism, unspecified; Z79.82 Long term (current) use of aspirin; Z79.899 Other long term (current) drug therapy
CPT/HCPCS: 36415; 85027; 80048; 36907; 36902; C1752; C1894; Q9967; C1769; J2250; J1644 ×2; A9270 ×2; J3010; J3490

== ENCOUNTER 2018-11-01 17:32 | Emergency (ER) | payer MEDICARE ==
[2018-11-01 19:02] VITALS: BP 132/55
== END 2018-11-01 20:00 | disposition left against medical advice (07) ==
LOC: ER 17:32
DX: Z53.21 Procedure and treatment not carried out due to patient leaving prior to being seen by health care provider (principal)

== ENCOUNTER 2018-12-08 18:54 | Emergency (ER) | payer MEDICARE ==
[2018-12-08] MEDS ORDERED: ONDANSETRON HCL INJ/PF 4 MG/2 ML SDV IV ONE (21:02)
[2018-12-08] MEDS ORDERED: NORMAL SALINE 1000 ML 500 ML IV ONE (21:02)
--- NOTE | 2018-12-08 21:34 | ER Document Report ---
ED General - General Chief Complaint: Nausea/Vomiting Stated Complaint: NAUSEA Time Seen by Provider: 12/08/18 19:42 Primary Care Provider: JOSE MANUEL MIX MD [Primary Care Provider] - Follow up as needed Notes: Patient is a 78-year-old female with past medical history of end-stage renal disease with dialysis dependence who presents due to concerns of a mild headache and some nausea earlier today that both since resolved. At the time of my assessment the patient denies any complaints of any kind. When asked why 9 1 was called she states that her daughter called 911 because she said she felt she was getting sick on her stomach. She did not vomit. States that this occurred after dialysis and states her blood pressure also got low during dialysis. Denies chest pain or shortness of breath. Headache was a mild, aching, global, throbbing headache gradual in onset. Mild in intensity. Similar headaches in the past. Resolved after she massaged her temples. Has not seen her primary doctor regarding today's concerns. TRAVEL OUTSIDE OF THE [place] IN LAST 30 DAYS: No - Related Data Allergies/Adverse Reactions: adhesive tape Allergy (Intermediate, Verified 11/01/18 17:34) Generalized rash Past Medical History - General Information source: Patient - Social History Smoking Status: Never Smoker Chew tobacco use (# tins/day): No Frequency of alcohol use: None Drug Abuse: None Lives with: Family Family History: CAD, Hypertension, Other - Kidney disease Patient has suicidal ideation: No Patient has homicidal ideation: No - Past Medical History Cardiac Medical History: Reports: Hx Heart Attack - 2016; POSSIBLE CARDIAC STENT PLACEMENT "TO KEEP THE VALVE OPEN", Hx Hypercholesterolemia, Hx Hypertension - HX. OF, CURRENTLY OFF HER HTN MEDS DUE TO LOW BP Denies: Hx Coronary Artery Disease Pulmonary Medical History: Reports: Hx Pneumonia - NOVEMBER 2017 Denies: Hx Asthma, Hx Bronchitis, Hx COPD, Hx Tuberculosis Neurological Medical History: Reports: Hx Cerebrovascular Accident - JUNE 2010, DENIES DEFICITS. Denies: Hx Seizures Endocrine Medical History: Reports: Hx Diabetes Mellitus Type 2, Hx Hypothyroidism Renal/ Medical History: Reports: Hx End Stage Renal Disease. Denies: Hx Peritoneal Dialysis Musculoskeletal Medical History: Reports Hx Arthritis Past Surgical History: Reports: Hx Cardiac Catheterization - Possible cardiac catheterization with stent placement. Records are pending, Hx Cholecystectomy. Denies: Hx Pacemaker - Immunizations Hx Diphtheria, Pertussis, Tetanus Vaccination: Yes - PATIENT UNSURE Hx Pneumococcal Vaccination: 04/19/12 Review of Systems - Review of Systems Notes: Constitutional: Negative for fever. HENT: Negative for sore throat. Eyes: Negative for visual changes. Cardiovascular: Negative for chest pain. Respiratory: Negative for shortness of breath. Gastrointestinal: Negative for abdominal pain, vomiting or diarrhea. Genitourinary: Negative for dysuria. Musculoskeletal: Negative for back pain. Skin: Negative for rash. Neurological: Positive headache now resolved 10 point ROS negative except as marked above and in HPI. Physical Exam - Vital signs Vitals: Temp BP 97.2 F 136/66 H 12/08/18 19:08 12/08/18 19:08 Interpretation: Normal Notes: PHYSICAL EXAMINATION: GENERAL: Elderly female in no acute distress, eating candy HEAD: Atraumatic, normocephalic. EYES: Pupils equal round and reactive to light, extraocular movements intact, s clera anicteric, conjunctiva are normal. ENT: nares patent, oropharynx clear without exudates. Moist mucous membranes. NECK: Normal range of motion, supple without lymphadenopathy LUNGS: Breath sounds clear to auscultation bilaterally and equal. No wheezes rales or rhonchi. HEART: Regular rate and rhythm without murmurs ABDOMEN: Soft, nontender, normoactive bowel sounds. No guarding, no rebound. No masses appreciated. EXTREMITIES: Normal range of motion, no pitting or edema. No cyanosis. NEUROLOGICAL: Face symmetric. Tongue protrudes midline. Extraocular motions intact. Pupils are 2 mm and equally reactive. Normal speech. 5 out of 5 strength in both the distal and proximal upper and lower extremities bilaterally. Sensation is grossly intact throughout. Finger to nose testing normal. Pronator drift normal. PSYCH: Normal mood, normal affect. SKIN: Warm, Dry, normal turgor, no rashes or lesions noted. Course - Re-evaluation Re-evalutation: 12/08/18 21:32 Patient presents with no complaints at the time of my assessment. Earlier today she states that she had a headache and some nausea but these have completely resolved. She reports the headache is being very mild, states that it was a quite typical headache for her after dialysis and went away by rubbing her temples. The patient is actually eating candy when I go to assess her and denies ever having had vomited only feeling somewhat nauseated after dialysis. She has no abdominal tenderness on exam, denies any complaints at the time of my assessment other than chronic bilateral lower extremity edema which she states is unchanged. I do not believe any imaging or extensive evaluation is indicated at this point as the patient adamantly denies any complaints currently. She likewise denied any vomiting or anything beyond mild nausea and headache for EMS and the initial nursing staff. No report of a thunderclap headache, abrupt onse t headache or high intensity headache to suggest a subarachnoid hemorrhage picture. CT of the head obtained within 6 hours of onset of the headache given patient's history of dialysis dependence. Noted to be normal. Neurologic exam unremarkable. Labs at baseline. At this time will discharge with return precautions and follow-up recommendations. Verbal discharge instructions given a the bedside and opportunity for questions given. Medication warnings reviewed. Patient is in agreement with this plan and has verbalized understanding of return precautions and the need for primary care follow-up in the next 24-72 hours. - Vital Signs Vital signs: Temp Pulse Resp BP Pulse Ox 98.6 F 66 16 133/46 H 98 12/08/18 23:10 12/08/18 23:10 12/08/18 23:10 12/08/18 23:10 12/08/18 23:10 - Laboratory Result Diagrams: 12/08/18 21:35 Laboratory results interpreted by me: 12/08/18 21:35 Potassium 3.3 L Chloride 97 L Carbon Dioxide 33 H Creatinine 5.38 H Est GFR ( Amer) 9 L Est GFR (Non-Af Amer) 8 L Glucose 137 H AST 37 H - Diagnostic Test Radiology reviewed: Image reviewed, Reports reviewed Radiology results interpreted by me: 12/08/18 22:32 CT head: No acute intracranial bleed or mass Discharge - Discharge Clinical Impression: Nausea, End stage renal disease Headache Qualifiers: Headache type: unspecified Headache chronicity pattern: acute headache Intractability: not intractable Qualified Code(s): R51 - Headache Condition: Stable Disposition: HOME, SELF-CARE Additional Instructions: Please return to the emergency room immediately if you experience any concerning symptoms including high fevers, severe headache, chest pain, difficulty breathing, abdominal pain, slurred speech, numbness or weakness in your arms or legs, or any other symptom that concerns you. Referrals: JOSE MANUEL MIX MD [Primary Care Provider] - Follow up as needed
--- NOTE | 2018-12-08 22:10 | RADIOLOGY REPORT (SQ) ---
EXAM DESCRIPTION: CT HEAD WITHOUT IV CONTRAST COMPLETED DATE/TME: 12/08/2018 21:34 CLINICAL HISTORY: 78 years, Female, headache COMPARISON: None. TECHNIQUE: 261 Images stored on PACS. All CT scanners at this facility use dose modulation, iterative reconstruction, and/or weight based dosing when appropriate to reduce radiation dose to as low as reasonably achievable (ALARA). [facility]: Dose Right [facility]: CareDose [facility]: Dose Right [facility]: Teradose 4D [facility]: GMEX LIMITATIONS: None. FINDINGS: Chronic appearing changes to the globes. Correlate with history. No displaced or depressed skull fracture. Motion artifact degrades image quality. No intra or extra-axial hemorrhage. CT is limited for evaluation of acute infarct. No CT evidence for large or territorial acute infarct. No mass or midline shift. Mild diffuse atrophy with minor small vessel ischemic change. IMPRESSION: Mild atrophy and small vessel ischemic change TECHNICAL DOCUMENTATION: Quality ID # [id number]: Final reports with documentation of one or more dose reduction techniques (e.g., Automated exposure control, adjustment of the mA and/or kV according to patient size, use of iterative reconstruction technique) copyright 2011 [employer]- All Rights Reserved
[2018-12-08 22:13] LABS: ALANINE AMINOTRANSFERASE 19 U/L (9-52); ALBUMIN 3.6 g/dL (3.5-5.0); ALKALINE PHOSPHATASE 60 U/L (38-126); ANION GAP 9 (5-19); ASPARTATE AMINO TRANSFERASE 37 U/L (14-36); BILIRUBIN,DIRECT 0.4 mg/dL (0.0-0.4); BILIRUBIN,TOTAL 0.4 mg/dL (0.2-1.3); BLOOD UREA NITROGEN 8 mg/dL (7-20); CALCIUM 8.8 mg/dL (8.4-10.2); CARBON DIOXIDE 33 mmol/L (22-30); CHLORIDE 97 mmol/L (98-107); GLUCOSE 137 mg/dL (75-110); LIPASE 145.7 U/L (23-300); POTASSIUM 3.3 mmol/L (3.6-5.0); SODIUM 139.4 mmol/L (137-145); TOTAL PROTEIN 6.6 g/dL (6.3-8.2)
[2018-12-08 23:34] VITALS: BP 133/46
== END 2018-12-08 23:30 | disposition home or self-care (01) ==
LOC: ER 18:54
DX: R11.0 Nausea (principal); R51 Headache; I12.0 Hypertensive chronic kidney disease with stage 5 chronic kidney disease or end stage renal disease; N18.6 End stage renal disease; E11.22 Type 2 diabetes mellitus with diabetic chronic kidney disease; Z99.2 Dependence on renal dialysis; R60.0 Localized edema; Z91.048 Other nonmedicinal substance allergy status
CPT/HCPCS: 36415; 70450; 80053; 83690; 99284

== ENCOUNTER 2018-12-19 14:01 | Emergency (ER) | payer MEDICARE ==
[2018-12-19] MEDS ORDERED: ASPIRIN 81 MG TABLET, CHEWABLE PO ONE (14:59)
--- NOTE | 2018-12-19 15:34 | RADIOLOGY REPORT (SQ) ---
EXAM DESCRIPTION: CHEST SINGLE VIEW COMPLETED DATE/TIME: 12/19/2018 3:17 pm REASON FOR STUDY: edema COMPARISON: 09/19/2017 EXAM PARAMETERS: NUMBER OF VIEWS: One view. TECHNIQUE: Single frontal radiographic view of the chest acquired. RADIATION DOSE: NA LIMITATIONS: None. FINDINGS: LUNGS AND PLEURA: Decrease in the left lower lung opacity-left pleural effusion since the prior examination. Stable right infrahilar scarring or atelectasis. No pneumothorax. MEDIASTINUM AND HILAR STRUCTURES: No masses. Contour normal. HEART AND VASCULAR STRUCTURES: Cardiomegaly are stable finding. BONES: No acute findings. HARDWARE: None in the chest. OTHER: Multiple surgical metallic clips in the soft tissues of the medial left arm. IMPRESSION: 1. Since the prior examination dated 09/19/2017, decrease in the left lower lung opacity ---left pleural effusion. Mild residual changes remain. 2. Cardiomegaly, unchanged finding. TECHNICAL DOCUMENTATION: JOB ID: [id number] [employer]- All Rights Reserved Reading location - IP/workstation name: [email or web address]
--- NOTE | 2018-12-19 16:53 | RADIOLOGY REPORT (SQ) ---
EXAM DESCRIPTION: VENOUS UNILATERAL LOWER COMPLETED DATE/TIME: 12/19/2018 4:42 pm REASON FOR STUDY: left leg swelling COMPARISON: None. TECHNIQUE: Dynamic and static gonzales scale and color images acquired of the left leg venous system. Se lected spectral images acquired with additional compression and augmentation maneuvers. The contralat eral common femoral vein and saphenofemoral junction were also imaged. Images stored on PACS. LIMITATIONS: None. FINDINGS: COMMON FEMORAL: Normal phasicity, compression and augmentation. No visualized echogenic ma terial on gonzales scale. No defects on color images. FEMORAL: Normal compression and augmentation. No visualized echogenic material on gonzales scale. No defe cts on color images. POPLITEAL: Normal compression, augmentation. No visualized echogenic material on gonzales scale. No defec ts on color images. CALF VESSELS: Normal compression, augmentation. No visualized echogenic material on gonzales scale. No de fects on color images. GSV and SSV: Normal compression, augmentation. No visualized echogenic material on gonzales scale. No def ects on color images. ANY DEEP VENOUS INSUFFICIENCY: Not evaluated. ANY EVIDENCE OF POPLITEAL CYST: No. OTHER: Edema in the subcutaneous soft tissues of the lower leg. CONTRALATERAL COMMON FEMORAL VEIN AND SAPHENOFEMORAL JUNCTION: Normal phasicity, compression and augmentation. No visualized echogenic material on gonzales scale. No de fects on color images. IMPRESSION: NO EVIDENCE DVT OR SVT IN THE LEFT LEG. COMMENT: Preliminary report was called by the technologist to the referring clinician's office at t he time of the exam. TECHNICAL DOCUMENTATION: JOB ID: [id number] [employer]- All Rights Reserved Reading location - IP/workstation name: [email or web address]
[2018-12-19 17:06] LABS: HEMATOCRIT 37.5 % (36.0-47.0); HEMOGLOBIN 12.2 g/dL (12.0-15.5); MEAN CORPUSCULAR HEMOGLOBIN 35.3 pg (27.0-33.4); MEAN CORPUSCULAR HGB CONC 32.5 g/dL (32.0-36.0); MEAN CORPUSCULAR VOLUME 108 fl (80-97); PLATELET COUNT 231 10^3/uL (150-450); RED BLOOD COUNT 3.46 10^6/uL (3.72-5.28); WHITE BLOOD COUNT 3.2 10^3/uL (4.0-10.5)
[2018-12-19 17:19] LABS: ALANINE AMINOTRANSFERASE 20 U/L (9-52); ALKALINE PHOSPHATASE 62 U/L (38-126); ANION GAP 9 (5-19); ASPARTATE AMINO TRANSFERASE 57 U/L (14-36); BILIRUBIN,DIRECT 0.6 mg/dL (0.0-0.4); BILIRUBIN,TOTAL 0.6 mg/dL (0.2-1.3); BLOOD UREA NITROGEN 13 mg/dL (7-20); CALCIUM 9.2 mg/dL (8.4-10.2); CARBON DIOXIDE 33 mmol/L (22-30); CHLORIDE 99 mmol/L (98-107); CREATINE KINASE 364 U/L (30-135); GLUCOSE 143 mg/dL (75-110); SODIUM 141.3 mmol/L (137-145); TOTAL PROTEIN 7.7 g/dL (6.3-8.2)
[2018-12-19 17:30] LABS: CREATINE KINASE MB 5.59 ng/mL (<4.55)
[2018-12-19 17:34] LABS: TROPONIN I 0.04 ng/mL
[2018-12-19 17:37] LABS: ABSOLUTE LYMPHOCYTES# (MANUAL) 1.1 10^3/uL (0.5-4.7); ABSOLUTE MONOCYTES # (MANUAL) 0.3 10^3/uL (0.1-1.4); ABSOLUTE NEUTROPHILS# (MANUAL) 1.7 10^3/uL (1.7-8.2); ANISOCYTOSIS 2+; BASOPHILS % (MANUAL) 3 % (0-2); EOSINOPHILS % (MANUAL) 2 % (0-6); HYPOCHROMASIA 1+; LYMPHOCYTES % (MANUAL) 31 % (13-45); MONOCYTES % (MANUAL) 9 % (3-13); PLATELET COMMENT ADEQUATE; POLYCHROMASIA 1+; SEGMENTED NEUTROPHILS % (MAN) 52 % (42-78); TOTAL CELLS COUNTED 100
--- NOTE | 2018-12-19 18:23 | EKG REPORT ---
SEVERITY:- ABNORMAL ECG - SINUS RHYTHM LOW VOLTAGE IN FRONTAL LEADS BORDERLINE R WAVE PROGRESSION, ANTERIOR LEADS NONSPECIFIC T ABNORMALITIES, LATERAL LEADS : Confirmed by: Yury Ramirez MD 19-Dec-2018 18:23:10
[2018-12-19 19:14] VITALS: BP 136/72
--- NOTE | 2018-12-19 19:28 | ER Document Report ---
Entered by HAILEY CHENG SCRIBE 12/19/18 1545 Acting as scribe for:JACQUELYN BARRY DO ED General - General Chief Complaint: Edema Stated Complaint: SWELLING Time Seen by Provider: 12/19/18 14:58 Primary Care Provider: JOSE MANUEL MIX MD [Primary Care Provider] - Follow up as needed Mode of Arrival: Ambulatory Information source: Patient Notes: Patient is a 78 year old, hard of hearing female with ESRD (MWF dialysis) presents to the emergency department complaining of bilateral lower extremity swelling and pain onset 2 weeks ago. Patient describes her pain as "someone grabbing at my legs". Patient expresses concern for possible fluid on her lungs but denies any shortness of breath and denies any chest pain.. Patient states she has been going to dialysis like she is supposed to but it is not improving. Patient states that she has had less fluid taken off than usual over the past few weeks. Patient rehabilitation nurse is Dr. Mendez, her PCP is Dr. Mix. She reports she did go to dialysis yesterday. TRAVEL OUTSIDE OF THE [place] IN LAST 30 DAYS: No - Related Data Allergies/Adverse Reactions: adhesive tape Allergy (Intermediate, Verified 11/01/18 17:34) Generalized rash Past Medical History - General Information source: Patient - Social History Smoking Status: Unknown if Ever Smoked Chew tobacco use (# tins/day): No Frequency of alcohol use: None Drug Abuse: None Family History: CAD, Hypertension, Other - Kidney disease Patient has suicidal ideation: No Patient has homicidal ideation: No - Past Medical History Cardiac Medical History: Reports: Hx Heart Attack - 2017; POSSIBLE CARDIAC STENT PLACEMENT "TO KEEP THE VALVE OPEN", Hx Hypercholesterolemia, Hx Hypertension - HX. OF, CURRENTLY OFF HER HTN MEDS DUE TO LOW BP Pulmonary Medical History: Reports: Hx Pneumonia - NOVEMBER 2017 Neurological Medical History: Reports: Hx Cerebrovascular Accident - JUNE 2010, DENIES DEFICITS Endocrine Medical History: Reports: Hx Diabetes Mellitus Type 2, Hx Hypothyroidism Renal/ Medical History: Reports: Hx End Stage Renal Disease Musculoskeletal Medical History: Reports Hx Arthritis Past Surgical History: Reports: Hx Cardiac Catheterization - Possible cardiac catheterization with stent placement. Records are pending, Hx Cholecystectomy - Immunizations Hx Diphtheria, Pertussis, Tetanus Vaccination: Yes - PATIENT UNSURE Hx Pneumococcal Vaccination: 04/19/12 Review of Systems - Review of Systems Constitutional: No symptoms reported EENT: No symptoms reported Cardiovascular: No symptoms reported Respiratory: No symptoms reported Gastrointestinal: No symptoms reported Female Genitourinary: No symptoms reported Musculoskeletal: See HPI Skin: No symptoms reported Hematologic/Lymphatic: No symptoms reported Neurological/Psychological: No symptoms reported -: Yes All other systems reviewed and negative Physical Exam - Vital signs Vitals: Resp Pulse Ox 15 96 12/19/18 14:15 12/19/18 14:15 - Notes Notes: GENERAL: Alert, hard of hearing, interacts well. No acute distress. HEAD: Normocephalic, atraumatic. EYES: Right cornea is opacified. Left eye is round and reactive to light. There is discharge bilaterally. Tracks me well with her left eye. ENT: Oral mucosa moist, tongue midline. NECK: Full range of motion. Supple. Trachea midline. LUNGS: Clear to auscultation bilaterally, no wheezes, rales, or rhonchi. No respiratory distress. HEART: Regular rate and rhythm. No murmurs, gallops, or rubs. ABDOMEN: Soft, non-tender. Non-distended. Bowel sounds present in all 4 quadr ants. No guarding, rigidity, or rebound. EXTREMITIES: Moves all 4 extremities spontaneously. 3+ pitting edema to the LLE, 2+ pitting edema to the RLE. Pitting edema to the bilateral feet with norm al creases. Thick hypertrophic toenails bilaterally. Fistula in the left upper extremity, palpable thrill consistent with history of dialysis. NEUROLOGICAL: Alert and oriented x3. Normal speech. PSYCH: Normal affect, normal mood. SKIN: Warm, dry. Course - Re-evaluation Re-evalutation: 12/19/18 17:54 CBC shows leukopenia with white blood cell count of 3.2, surprisingly no anemia, platelets normal at 231, chemistries show chronic renal failure with a creatinine of 6.66, she is due for dialysis tomorrow, troponin is indeterminate 0.040 however she is not acutely short of breath and is not complaining of any chest pain. proBNP is elevated however she is not having any respiratory distress, chest x-ray does not show any pulmonary edema, there is a chronic pleural effusion. Venous Doppler ultrasound did not show any DVT in the left lower extremity. At present patient is stable for discharge, recommend that she follow-up with her rehabilitation nurse tomorrow for routine dialysis and with her primary care physician as well. No indication for hospitalization or acute intervention. On a separate note EMS did report that the patient had bedbugs, see no evidence of bedbugs here and she has no bite mendoza. There is no indication to treat for bedbugs at this time. Patient will be discharged home. 12/19/18 18:36 Patient's daughter is quite angry that the patient is going to be discharged home. She is concerned that the patient has been doing 3 times weekly dialysis and the swelling continues to increase. I discussed with the patient's daughter that there is no emergent indication for admission and she has no signs of acute congestive heart failure, she is not in any respiratory distress, is not short of breath and does not have any hypoxia or tachypnea. Daughter's biggest concern is the degree of pain that the patient is having. I did agree to call and discussed the patient with Dr. Mix. Dr. Childress agrees that if there is no emergent indication for dialysis she should not be admitted however she is agreeable to me prescribing her 2 days worth of Vicodin to help control the pain in her legs until he is able to follow-up with her on and she goes to dialysis tomorrow. 12/19/18 18:42 Daughter is agreeable to this plan. - Vital Signs Vital signs: Temp Pulse Resp BP Pulse Ox 17 136/72 H 99 12/19/18 18:00 12/19/18 19:11 12/19/18 18:00 - Laboratory Result Diagrams: 12/19/18 16:45 12/19/18 16:45 Laboratory results interpreted by me: 12/19/18 12/19/18 12/19/18 16:45 16:45 16:45 WBC 3.2 L RBC 3.46 L MCV 108 H MCH 35.3 H RDW 18.0 H Basophils % (Manual) 3 H Carbon Dioxide 33 H Creatinine 6.66 H Est GFR ( Amer) 7 L Est GFR (Non-Af Amer) 6 L Glucose 143 H Direct Bilirubin 0.6 H AST 57 H Creatine Kinase 364 H CK-MB (CK-2) 5.59 H NT-Pro-B Natriuret Pep 8330 H - EKG Interpretation by Me Additional EKG results interpreted by me: 12/19/18 17:55 EKG shows sinus rhythm rate of 67, low voltage, borderline R wave progression, generalized T wave flattening, no ST segment elevations per my interpretation. Discharge - Discharge Clinical Impression: Bilateral lower extremity edema, Recurrent pleural effusion on left, End stage renal disease on dialysis Condition: Stable Disposition: HOME, SELF-CARE Additional Instructions: Today we did not find a blood clot in your legs, there is no evidence of heart attack, you do have a chronic pleural effusion on your left lung but there is no sign of acute change in the amount of fluid. There is no new fluid building up in the lung tissue. There is no need to be admitted today. You need to continue going to dialysis on a regular basis. If they are concerned by the amount of fluid building up in your legs they may wish to increase your dialysis temporarily. Please make sure you are following closely with your rehabilitation nurse and your primary care physician. Prescriptions: Hydrocodone/Acetaminophen [[place] 5-325 mg Tablet] 1 tab PO Q4HP PRN #12 tablet PRN Reason: Referrals: JOSE MANUEL MIX MD [Primary Care Provider] - Follow up as needed I personally performed the services described in the documentation, reviewed and edited the documentation which was dictated to the scribe in my presence, and it accurately records my words and actions.
== END 2018-12-19 19:15 | disposition home or self-care (01) ==
LOC: ER 14:01
DX: M79.89 Other specified soft tissue disorders (principal); R60.9 Edema, unspecified; J90 Pleural effusion, not elsewhere classified; E11.22 Type 2 diabetes mellitus with diabetic chronic kidney disease; I12.0 Hypertensive chronic kidney disease with stage 5 chronic kidney disease or end stage renal disease; N18.6 End stage renal disease; E78.00 Pure hypercholesterolemia, unspecified; E03.9 Hypothyroidism, unspecified; Z90.49 Acquired absence of other specified parts of digestive tract; Z99.2 Dependence on renal dialysis
CPT/HCPCS: 93005; 99285; 36415; 82553; 82550; 85025; 80053; 84484; 83880; 93971; 71045; 93010; A9270

== ENCOUNTER 2018-12-21 13:27 | Inpatient (IN) | payer MEDICARE ==
--- NOTE | 2018-12-21 13:57 | ER Document Report ---
ED Medical Screen (RME) - General Chief Complaint: Edema Stated Complaint: BODY PAIN Time Seen by Provider: 12/21/18 13:55 Primary Care Provider: JOSE MANUEL MIX MD [Primary Care Provider] - Follow up as needed Mode of Arrival: Carried Information source: Patient Notes: 78-year-old female presented to ED because family states she was sent by Dr. Mix to get admitted for pedal edema. She is a dialysis patient she last had her dialysis yesterday. She does have 3-4+ pitting edema. She states during her dialysis her blood pressure kept going up and down so they had to stop the dialysis and she has been having more more edema because of this. She states that her left thigh is very painful in both of her feet are painful due to the swelling. Patient is blind and hard of hearing. [facility] nurse states that the daughter went to the doctor's office to try to get admission orders because she did not have any admission orders with her. I have greeted and performed a rapid initial assessment of this patient. A comprehensive ED assessment and evaluation of the patient, analysis of test results and completion of medical decision making process will be conducted by an additional ED providers. Dictation of this chart was performed using voice recognition software; therefore, there may be some unintended grammatical errors. TRAVEL OUTSIDE OF THE [place] IN LAST 30 DAYS: No - Related Data Allergies/Adverse Reactions: adhesive tape Allergy (Intermediate, Verified 12/21/18 13:30) Generalized rash Past Medical History - Past Medical History Cardiac Medical History: Reports: Hx Heart Attack - 2016; POSSIBLE CARDIAC STENT PLACEMENT "TO KEEP THE VALVE OPEN", Hx Hypercholesterolemia, Hx Hypertension - HX. OF, CURRENTLY OFF HER HTN MEDS DUE TO LOW BP Denies: Hx Coronary Artery Disease Pulmonary Medical History: Reports: Hx Pneumonia - NOVEMBER 2017 Denies: Hx Asthma, Hx Bronchitis, Hx COPD, Hx Tuberculosis Neurological Medical History: Reports: Hx Cerebrovascular Accident - JUNE 2010, DENIES DEFICITS. Denies: Hx Seizures Endocrine Medical History: Reports: Hx Diabetes Mellitus Type 2, Hx Hypothyroidism Renal/ Medical History: Reports: Hx End Stage Renal Disease. Denies: Hx Peritoneal Dialysis Musculoskeltal Medical History: Reports Hx Arthritis Past Surgical History: Reports: Hx Cardiac Catheterization - Possible cardiac catheterization with stent placement. Records are pending, Hx Cholecystectomy. Denies: Hx Pacemaker - Immunizations Hx Diphtheria, Pertussis, Tetanus Vaccination: Yes - PATIENT UNSURE History of Influenza Vaccine for 04/2017 - 09/2017 Season: No Influenza Administration Date for 04/2017 - 09/2017 Season: 03/13/17 Physical Exam - Vital signs Vitals: Pulse Resp BP Pulse Ox 64 18 142/62 H 100 12/21/18 13:36 12/21/18 13:36 12/21/18 13:36 12/21/18 13:36 Course - Vital Signs Vital signs: Temp Pulse Resp BP Pulse Ox 64 18 142/62 H 100 12/21/18 13:36 12/21/18 13:36 12/21/18 13:36 12/21/18 13:36 Doctor's Discharge - Discharge Referrals: JOSE MANUEL MIX MD [Primary Care Provider] - Follow up as needed
[2018-12-21 14:45] LABS: HEMATOCRIT 36.3 % (36.0-47.0); HEMOGLOBIN 12.1 g/dL (12.0-15.5); MEAN CORPUSCULAR HEMOGLOBIN 35.4 pg (27.0-33.4); MEAN CORPUSCULAR HGB CONC 33.3 g/dL (32.0-36.0); MEAN CORPUSCULAR VOLUME 106 fl (80-97); PLATELET COUNT 223 10^3/uL (150-450); RED BLOOD COUNT 3.41 10^6/uL (3.72-5.28); RED CELL DISTRIBUTION WIDTH 17.3 % (11.5-14.0); WHITE BLOOD COUNT 3.5 10^3/uL (4.0-10.5)
[2018-12-21 15:05] LABS: ABSOLUTE MONOCYTES # (MANUAL) 0.1 10^3/uL (0.1-1.4); BASOPHILS % (MANUAL) 2 % (0-2); EOSINOPHILS % (MANUAL) 1 % (0-6); LYMPHOCYTES % (MANUAL) 29 % (13-45); MONOCYTES % (MANUAL) 4 % (3-13); SEGMENTED NEUTROPHILS % (MAN) 64 % (42-78); TOTAL CELLS COUNTED 100
[2018-12-21 15:07] LABS: ANISOCYTOSIS 1+; POIKILOCYTOSIS SLIGHT; TARGET CELLS 1+; TEAR DROP CELLS SLIGHT
[2018-12-21 15:09] LABS: PLATELET COMMENT ADEQUATE
--- NOTE | 2018-12-21 16:48 | RADIOLOGY REPORT (SQ) ---
EXAM DESCRIPTION: CHEST SINGLE VIEW COMPLETED DATE/TIME: 12/21/2018 4:38 pm REASON FOR STUDY: pedal edema COMPARISON: Chest films 12/19/2018, 04/09/2018, 04/07/2018 EXAM PARAMETERS: NUMBER OF VIEWS: One view. TECHNIQUE: Single frontal radiographic view of the chest acquired. RADIATION DOSE: NA LIMITATIONS: None. FINDINGS: LUNGS AND PLEURA: Chronic blunting of the left lateral and posterior costophrenic sulcus. No acute infiltrates. No acute pleural effusion or pneumothorax. MEDIASTINUM AND HILAR STRUCTURES: CT of the airways HEART AND VASCULAR STRUCTURES: Stable marked cardiomegaly BONES: No acute findings. HARDWARE: Surgical clips in the left upper extremity for dialysis access OTHER: No other significant finding. IMPRESSION: Stable cardiomegaly and chronic blunting of the left lateral and posterior costophrenic sulcus. No acute findings TECHNICAL DOCUMENTATION: JOB ID: [id number] [employer]- All Rights Reserved Reading location - IP/workstation name: [email or web address]
[2018-12-21 17:45] LABS: ALANINE AMINOTRANSFERASE 29 U/L (9-52); ALBUMIN 3.5 g/dL (3.5-5.0); ALKALINE PHOSPHATASE 60 U/L (38-126); ANION GAP 10 (5-19); ASPARTATE AMINO TRANSFERASE 50 U/L (14-36); BILIRUBIN,DIRECT 0.5 mg/dL (0.0-0.4); BILIRUBIN,TOTAL 0.5 mg/dL (0.2-1.3); BLOOD UREA NITROGEN 11 mg/dL (7-20); CALCIUM 9.3 mg/dL (8.4-10.2); CARBON DIOXIDE 30 mmol/L (22-30); CHLORIDE 99 mmol/L (98-107); GLUCOSE 135 mg/dL (75-110); LIPASE 121.7 U/L (23-300); POTASSIUM 3.9 mmol/L (3.6-5.0); SODIUM 139.3 mmol/L (137-145); TOTAL PROTEIN 6.5 g/dL (6.3-8.2)
--- NOTE | 2018-12-21 18:04 | ER Document Report ---
ED General - General Chief Complaint: Edema Stated Complaint: BODY PAIN Time Seen by Provider: 12/21/18 13:55 Mode of Arrival: Carried Notes: Patient is a 78 year old female that presents to the emergency department for chief complaint of leg swelling. Patient states that she has been having issues with getting dialysis because her blood pressure has been transiently dropping during dialysis, as a result they have not been able to pull up fluid, and her legs are becoming more swollen. She denies any significant shortness of breath or chest pain. She states is been going on over the past 3 weeks, and its been progressively getting worse. Her primary care is aware of this, and she was advised to come to the hospital to be admitted. She denies any recent fevers, chills, night sweats, nausea, vomiting, abdominal pain, dysuria hematuria. She reports having pain due to the swelling in her legs, and rates it as a 3 out of 10 describes as an aching constant sensation. Past Medical History: End-stage renal disease on dialysis, hypertension Past Surgical History: Dialysis fistula Social History: Lives at home with family, denies current tobacco, alcohol or drug use. Family History: Reviewed and noncontributory for presenting illness Allergies: Reviewed, see documented allergy list. REVIEW OF SYSTEMS: Other than noted above, the 12 point review of systems was reviewed with the patient and were negative, all pertinent findings are included in the HPI. PHYSICAL EXAMINATION: Vital signs reviewed, nursing noted reviewed. GENERAL: Well-appearing, well-nourished and in no acute distress. HEAD: Atraumatic, normocephalic. EYES: Corneal opacification, chronic for patient, extraocular movements intact, sclera anicteric, conjunctiva are normal. ENT: nares patent, oropharynx clear without exudates. Moist mucous membranes. NECK: Normal range of motion, supple without lymphadenopathy LUNGS: Breath sounds clear to auscultation bilaterally and equal. No wheezes rales or rhonchi. HEART: Regular rate and rhythm without murmurs ABDOMEN: Soft, nontender, normoactive bowel sounds. No rebound, guarding, or rigidity. No masses appreciated. EXTREMITIES: Nontender, good range of motion, 4+ bilateral lower extremity edema to the mid thighs, no erythema noted. Left upper extremity AV fistula, positive bruit/positive thrill NEUROLOGICAL: No focal neurological deficits. Moves all extremities spontaneously Motor and sensory grossly intact on exam. PSYCH: Normal mood, normal affect. SKIN: Warm, Dry, normal turgor, no rashes or lesions noted on exposed skin TRAVEL OUTSIDE OF THE [place] IN LAST 30 DAYS: No - Related Data Allergies/Adverse Reactions: adhesive tape Allergy (Intermediate, Verified 12/21/18 13:30) Generalized rash Past Medical History - General Information source: Patient - Social History Smoking Status: Unknown if Ever Smoked Family History: CAD, Hypertension, Other - Kidney disease Patient has suicidal ideation: No Patient has homicidal ideation: No - Past Medical History Cardiac Medical History: Reports: Hx Heart Attack - 2016; POSSIBLE CARDIAC STENT PLACEMENT "TO KEEP THE VALVE OPEN", Hx Hypercholesterolemia, Hx Hypertension - HX. OF, CURRENTLY OFF HER HTN MEDS DUE TO LOW BP Denies: Hx Coronary Artery Disease Pulmonary Medical History: Reports: Hx Pneumonia - NOVEMBER 2017 Denies: Hx Asthma, Hx Bronchitis, Hx COPD, Hx Tuberculosis Neurological Medical History: Reports: Hx Cerebrovascular Accident - JUNE 2010, DENIES DEFICITS. Denies: Hx Seizures Endocrine Medical History: Reports: Hx Diabetes Mellitus Type 2, Hx Hypothyroidism Renal/ Medical History: Reports: Hx End Stage Renal Disease. Denies: Hx Peritoneal Dialysis Musculoskeletal Medical History: Reports Hx Arthritis Past Surgical History: Reports: Hx Cardiac Catheterization - Possible cardiac catheterization with stent placement. Records are pending, Hx Cholecystectomy. Denies: Hx Pacemaker - Immunizations Hx Diphtheria, Pertussis, Tetanus Vaccination: Yes - PATIENT UNSURE Hx Pneumococcal Vaccination: 04/19/12 Physical Exam - Vital signs Vitals: Pulse Resp BP Pulse Ox 64 18 142/62 H 100 12/21/18 13:36 12/21/18 13:36 12/21/18 13:36 12/21/18 13:36 Course - Re-evaluation Re-evalutation: Patient seen and examined vital signs reviewed. Laboratory data and imaging were ordered as appropriate for the patient's presenting symptoms and complaint, with consideration of any critical or life threatening conditions that may be associated with their obtained history and exam as noted above. Patient was treated with [place] for pain Results were reviewed when available and demonstrated baseline blood work, normal potassium, chest x-ray is unchanged from prior. The patient was re-evaluated and was stable Evaluation was most consistent with peripheral edema, transient hypotension Results were discussed with the patient at this point after careful consideration I feel that that patient should be admitted to the hospital. This was discussed with the patient that it is in the best interest for their care to be admitted for further evaluation and management. Patient agreed with this plan of care. A call was placed to the admitted physician, Dr. Childress who graciously accepted the patient onto their service. *Note is created using voice recognition software and may contain spelling, syntax or grammatical errors. Laboratory 12/21/18 12/21/18 12/21/18 14:20 14:20 17:13 WBC 3.5 L RBC 3.41 L Hgb 12.1 Hct 36.3 MCV 106 H MCH 35.4 H MCHC 33.3 RDW 17.3 H Plt Count 223 Total Counted 100 Seg Neutrophils % Not Reportable Seg Neuts % (Manual) 64 Lymphocytes % Not Reportable Lymphocytes % (Manual) 29 Monocytes % Not Reportable Monocytes % (Manual) 4 Eosinophils % Not Reportable Eosinophils % (Manual) 1 Basophils % Not Reportable Basophils % (Manual) 2 Absolute Neutrophils Not Reportable Abs Neuts (Manual) 2.2 Absolute Lymphocytes Not Reportable Abs Lymphs (Manual) 1.0 Absolute Monocytes Not Reportable Abs Monocytes (Manual) 0.1 Absolute Eosinophils Not Reportable Absolute Eos (Manual) 0.0 Absolute Basophils Not Reportable Abs Basophils (Manual) 0.1 Platelet Comment ADEQUATE Poikilocytosis SLIGHT Anisocytosis 1+ Macrocytosis 2+ Target Cells 1+ Tear Drop Cells SLIGHT Sodium Cancelled 139.3 Potassium Cancelled 3.9 Chloride Cancelled 99 Carbon Dioxide Cancelled 30 Anion Gap Cancelled 10 BUN Cancelled 11 Creatinine Cancelled 5.48 H Est GFR ( Amer) Cancelled 9 L Est GFR (Non-Af Amer) Cancelled 8 L Glucose Cancelled 135 H Calcium Cancelled 9.3 Magnesium Total Bilirubin Cancelled 0.5 Direct Bilirubin Cancelled 0.5 H Neonat Total Bilirubin Cancelled Not Reportable Neonat Direct Bilirubin Cancelled Not Reportable Neonat Indirect Bili Cancelled Not Reportable AST Cancelled 50 H ALT Cancelled 29 Alkaline Phosphatase Cancelled 60 Creatine Kinase CK-MB (CK-2) Troponin I Total Protein Cancelled 6.5 Albumin Cancelled 3.5 Lipase Cancelled 121.7 TSH Free T4 12/21/18 12/21/18 12/21/18 17:13 17:13 17:13 WBC RBC Hgb Hct MCV MCH MCHC RDW Plt Count Total Counted Seg Neutrophils % Seg Neuts % (Manual) Lymphocytes % Lymphocytes % (Manual) Monocytes % Monocytes % (Manual) Eosinophils % Eosinophils % (Manual) Basophils % Basophils % (Manual) Absolute Neutrophils Abs Neuts (Manual) Absolute Lymphocytes Abs Lymphs (Manual) Absolute Monocytes Abs Monocytes (Manual) Absolute Eosinophils Absolute Eos (Manual) Absolute Basophils Abs Basophils (Manual) Platelet Comment Poikilocytosis Anisocytosis Macrocytosis Target Cells Tear Drop Cells Sodium Potassium Chloride Carbon Dioxide Anion Gap BUN Creatinine Est GFR ( Amer) Est GFR (Non-Af Amer) Glucose Calcium Magnesium 1.8 Total Bilirubin Direct Bilirubin Neonat Total Bilirubin Neonat Direct Bilirubin Neonat Indirect Bili AST ALT Alkaline Phosphatase Creatine Kinase 415 H CK-MB (CK-2) Cancelled Troponin I Cancelled Total Protein Albumin Lipase TSH 232.00 H Free T4 < 0.07 L Chest X-Ray 12/21/18 13:57 IMPRESSION: Stable cardiomegaly and chronic blunting of the left lateral and posterior costophrenic sulcus. No acute findings - Vital Signs Vital signs: Temp Pulse Resp BP Pulse Ox 97.5 F 57 L 20 173/69 H 100 12/22/18 01:38 12/22/18 02:00 12/22/18 01:38 12/22/18 01:38 12/22/18 01:38 - Laboratory Result Diagrams: 12/21/18 14:20 12/21/18 17:13 Laboratory results interpreted by me: 12/21/18 12/21/18 12/21/18 14:20 17:13 17:13 WBC 3.5 L RBC 3.41 L MCV 106 H MCH 35.4 H RDW 17.3 H Creatinine 5.48 H Est GFR ( Amer) 9 L Est GFR (Non-Af Amer) 8 L Glucose 135 H Direct Bilirubin 0.5 H AST 50 H Creatine Kinase 415 H TSH Free T4 12/21/18 17:13 WBC RBC MCV MCH RDW Creatinine Est GFR ( Amer) Est GFR (Non-Af Amer) Glucose Direct Bilirubin AST Creatine Kinase TSH 232.00 H Free T4 < 0.07 L Discharge - Discharge Clinical Impression: Peripheral edema, Transient hypotension, End stage renal disease on dialysis Condition: Stable Disposition: ADMITTED INPATIENT Admitting Provider: [facility] Unit Admitted: [facility]
[2018-12-21] MEDS ORDERED: HYDROCODONE/ACETAMINOPHEN 5-325 MG TABLET PO ONE (19:58)
[2018-12-21 22:28] LABS: INTERNATIONAL RATION (INR) 0.96; PROTHROMBIN TIME 13.3 SEC (11.4-15.4)
[2018-12-21 22:29] LABS: PARTIAL THROMBOPLASTIN TIME 36.4 SEC (23.5-35.8)
[2018-12-21 22:48] LABS: CREATINE KINASE MB 7.62 ng/mL (<4.55); TROPONIN I 0.026 ng/mL
[2018-12-21 22:54] LABS: FREE T4 (FREE THYROXINE) < 0.07 ng/dL (0.78-2.19)
[2018-12-21] MEDS: HEPARIN SOD (PORCINE) 5,000 UNIT/ML 1 ML SYRINGE SUBCUT SCH (23:08)
[2018-12-22] MEDS ORDERED: GLUCAGON,HUMAN RECOMB 1 MG INJ IM PRN (02:00)
[2018-12-22] MEDS ORDERED: DEXTROSE 40% GEL 15 GM TUBE X 2 PO PRN (02:00)
[2018-12-22] MEDS ORDERED: DEXTROSE 40% GEL 15 GM TUBE PO PRN (02:00)
[2018-12-22] MEDS: HYDROCODONE/ACETAMINOPHEN 5-325 MG TABLET PO PRN ×2 (02:16→13:12)
[2018-12-22 05:02] LABS: ABSOLUTE BASOPHILS # (AUTO) 0.1 10^3/uL (0.0-0.2); ABSOLUTE EOSINOPHILS # (AUTO) 0.1 10^3/uL (0.0-0.6); ABSOLUTE LYMPHOCYTES (AUTO) 1.1 10^3/uL (0.5-4.7); ABSOLUTE MONOCYTES (AUTO) 0.5 10^3/uL (0.1-1.4); BASOPHILS % (AUTO) 2.3 % (0-2); EOSINOPHILS % (AUTO) 2.6 % (0-6); HEMATOCRIT 35.1 % (36.0-47.0); HEMOGLOBIN 11.6 g/dL (12.0-15.5); MEAN CORPUSCULAR HEMOGLOBIN 35.9 pg (27.0-33.4); MEAN CORPUSCULAR HGB CONC 33.1 g/dL (32.0-36.0); MEAN CORPUSCULAR VOLUME 108 fl (80-97); MONOCYTES % (AUTO) 13.5 % (3-13); PLATELET COUNT 218 10^3/uL (150-450); RED BLOOD COUNT 3.25 10^6/uL (3.72-5.28); RED CELL DISTRIBUTION WIDTH 17.2 % (11.5-14.0); SEGMENTED NEUTROPHILS % (AUTO) 52.6 % (42-78); TOTAL CELLS COUNTED % (AUTO) 100 %; WHITE BLOOD COUNT 3.8 10^3/uL (4.0-10.5)
[2018-12-22 05:16] LABS: ALANINE AMINOTRANSFERASE 26 U/L (9-52); ALBUMIN 3.5 g/dL (3.5-5.0); ALKALINE PHOSPHATASE 64 U/L (38-126); ASPARTATE AMINO TRANSFERASE 48 U/L (14-36); BILIRUBIN,DIRECT 0.5 mg/dL (0.0-0.4); BILIRUBIN,TOTAL 0.6 mg/dL (0.2-1.3); CHOLESTEROL 290.24 mg/dL (0-200); TOTAL PROTEIN 6.7 g/dL (6.3-8.2); TRIGLYCERIDES 79 mg/dL (<150)
[2018-12-22 05:26] LABS: CREATINE KINASE MB 7.73 ng/mL (<4.55); TROPONIN I 0.025 ng/mL
[2018-12-22 05:27] LABS: DIRECT LDL 110 mg/dL (<100)
[2018-12-22] MEDS: HEPARIN SOD (PORCINE) 5,000 UNIT/ML 1 ML SYRINGE SUBCUT SCH ×3 (06:02→23:17)
[2018-12-22] MEDS: LEVOTHYROXINE SODIUM 0.15 MG TABLET PO SCH (06:02)
[2018-12-22] MEDS: INSULIN LISPRO 100 UNIT/ML 3 ML VIAL SUBCUT SCH ×4 (08:00→23:06)
--- NOTE | 2018-12-22 08:55 | PDOC CONSULTATION ---
Consultation Consult Date: 12/22/18 Provider Consulted: WINTER BENEDICT Consult reason:: Nephrology is consulted because of fluid overload in a patient who has ESRD. History of Present Illness Admission Date/PCP: 12/21/18 18:53 JOSE MANUEL MIX MD History of Present Illness: LOVELY ESPAÑA is a 78 year old female known to us with history of end-stage renal disease on maintenance hemodialysis 3 times a week, hypertension, and diabetes mellitus type 2 who presented to the hospital last night because of leg pain. Patient was also noted to have lower extremity edema. Patient is not really a good historian and could not really tell me much of the history. She is very hard of hearing. She tells me that she has slight difficulty of breathing and is currently on oxygen via nasal cannula when I saw her. She says she coughs when she eats but no sputum production. More recently the patient has been cutting his dialysis treatment short of prescribed dialysis time. She has been counseled repeatedly to stay on her dialysis time but she always request to be taken off the dialysis machine earlier than her prescribed time. As a result we cannot get enough ultrafiltration to keep her on her dry weight. I saw the patient this morning at around 8:45 AM. The only complaint she really has is her left leg pain. She does not appear to be in respiratory distress. She was tolerating dialysis without any problems or issues. Otherwise she does not have any other complaints. Past Medical History Cardiac Medical History: Reports: CHF-Diastolic, Hyperlipidemia, Hypertension- primary, Myocardial Infarction - 2017; POSSIBLE CARDIAC STENT PLACEMENT "TO KEEP THE VALVE OPEN" Pulmonary Medical History: Reports: Pneumonia - NOVEMBER 2017 Endocrine Medical History: Reports: Diabetes Mellitus Type 2, Hypothyroidism Renal/ Medical History: Reports: End Stage Renal Disease Musculoskeltal Medical History: Reports: Arthritis Hematology Medical History: Reports Anemia of Chronic Kidney Disease Past Surgical History Past Surgical History: Reports: Cardiac Catheterization - Possible cardiac catheterization with stent placement. Records are pending, Cholecystectomy, Dialysis Access Surgery AVF Social History Information Source: [facility] Records Smoking Status: Unknown if Ever Smoked Frequency of Alcohol Use: None Hx Recreational Drug Use: No Hx Prescription Drug Abuse: No - Advance Directive Resuscitation Status: Full Code Family History Family History: Reviewed & Not Pertinent Parental Family History Reviewed: Yes Children Family History Reviewed: Yes Sibling(s) Family History Reviewed.: Yes Medication/Allergy Allergies/Adverse Reactions: adhesive tape Allergy (Intermediate, Verified 12/21/18 13:30) Generalized rash Review of Systems All systems: reviewed and no additional remarkable complaints except as stated Review of Systems: Constitutional: ABSENT: chills, fatigue, fever(s), headache(s), weight gain, weight loss Eyes: ABSENT: visual disturbances Ears: ABSENT: hearing changes Cardiovascular: ABSENT: chest pain, dyspnea on exertion, orthropnea, palpitations; admits edema Respiratory: ABSENT: Hemoptysis; admits some occasional cough and shortness of breath Gastrointestinal: ABSENT: abdominal pain, constipation, diarrhea, hematemesis, hematochezia, nausea, vomiting Genitourinary: ABSENT: dysuria, hematuria Musculoskeletal: ABSENT: joint swelling; reports left leg pain Integumentary: ABSENT: rash, wounds Neurological: ABSENT: abnormal gait, abnormal speech, confusion, dizziness, focal weakness, numbness, syncope Psychiatric: ABSENT: anxiety, depression Endocrine: ABSENT: cold intolerance, heat intolerance, polydipsia, polyuria Hematologic/Lymphatic: ABSENT: easy bleeding, easy bruising, lymphadenopathy Physical Exam Vital Signs: Temp Pulse Resp BP Pulse Ox 97.4 F 49 L 20 133/68 H 100 12/22/18 03:51 12/22/18 07:00 12/22/18 03:51 12/22/18 03:51 12/22/18 03:51 Intake & Output 12/21/18 12/22/18 12/23/18 06:59 06:59 06:59 Weight 70.7 kg Vitals during dialysis treatment: Blood pressure 125/69, temperature of 96, heart rate of 61, respiratory rate of 19, blood flow rate of 450 mL/min, dialysate flow rate of 800 mL/min. Exam: General appearance: No acute distress, cooperative, well-developed, well- nourished Head exam: PRESENT: atraumatic, normocephalic; patient's face appears swollen. Eye exam: PRESENT: Conjunctiva [place], EOMI, PERRLA. ABSENT: conjunctival injection, scleral icterus Mouth exam: PRESENT: moist, neck supple, tongue midline Neck exam: PRESENT: full ROM. ABSENT: carotid bruit, JVD, lymphadenopathy, thyromegaly Respiratory exam: PRESENT: Diminished to auscultation bilaterally. Positive diffuse rhonchi ABSENT: rales, stridor, wheezes Cardiovascular exam: PRESENT: RRR, +S1, +S2. ABSENT: systolic murmur Pulses: PRESENT: normal radial pulses, normal dorsalis pedis pulses GI/Abdominal exam: PRESENT: normal bowel sounds, soft. ABSENT: guarding, mass, tenderness Rectal exam: Deferred Extremities exam: PRESENT: full ROM. Grade 1 bilateral lower extremity pitting edema ABSENT: calf tenderness Musculoskeletal: PRESENT: full ROM. ABSENT: deformity Neurological exam: PRESENT: alert, Awake, Oriented to person, Oriented to place, Oriented to time, reflexes normal, CN II-XII grossly intact. Patient has difficulty hearing ABSENT: motor sensory deficit Psychiatric exam: PRESENT: appropriate affect, normal mood. ABSENT: homicidal ideation, suicidal ideation Skin exam: PRESENT: intact, dry, warm. ABSENT: rash Results Laboratory Results: 12/22/18 04:22 12/21/18 17:13 12/21/18 12/21/18 12/21/18 14:20 14:20 17:13 WBC 3.5 L RBC 3.41 L Hgb 12.1 Hct 36.3 MCV 106 H MCH 35.4 H MCHC 33.3 RDW 17.3 H Plt Count 223 Seg Neutrophils % Not Reportable Lymphocytes % Not Reportable Monocytes % Not Reportable Eosinophils % Not Reportable Basophils % Not Reportable Absolute Neutrophils Not Reportable Absolute Lymphocytes Not Reportable Absolute Monocytes Not Reportable Absolute Eosinophils Not Reportable Absolute Basophils Not Reportable Sodium Cancelled 139.3 Potassium Cancelled 3.9 Chloride Cancelled 99 Carbon Dioxide Cancelled 30 Anion Gap Cancelled 10 BUN Cancelled 11 Creatinine Cancelled 5.48 H Est GFR ( Amer) Cancelled 9 L Est GFR (Non-Af Amer) Cancelled 8 L Glucose Cancelled 135 H Calcium Cancelled 9.3 Magnesium Total Bilirubin Cancelled 0.5 AST Cancelled 50 H ALT Cancelled 29 Alkaline Phosphatase Cancelled 60 Total Protein Cancelled 6.5 Albumin Cancelled 3.5 Triglycerides Cholesterol LDL Cholesterol Direct VLDL Cholesterol HDL Cholesterol Lipase Cancelled 121.7 TSH Free T4 12/21/18 12/21/18 12/22/18 17:13 17:13 04:22 WBC 3.8 L RBC 3.25 L Hgb 11.6 L Hct 35.1 L MCV 108 H MCH 35.9 H MCHC 33.1 RDW 17.2 H Plt Count 218 Seg Neutrophils % 52.6 Lymphocytes % 29.0 Monocytes % 13.5 H Eosinophils % 2.6 Basophils % 2.3 H Absolute Neutrophils 2.0 Absolute Lymphocytes 1.1 Absolute Monocytes 0.5 Absolute Eosinophils 0.1 Absolute Basophils 0.1 Sodium Potassium Chloride Carbon Dioxide Anion Gap BUN Creatinine Est GFR ( Amer) Est GFR (Non-Af Amer) Glucose Calcium Magnesium 1.8 Total Bilirubin AST ALT Alkaline Phosphatase Total Protein Albumin Triglycerides Cholesterol LDL Cholesterol Direct VLDL Cholesterol HDL Cholesterol Lipase TSH 232.00 H Free T4 < 0.07 L 12/22/18 04:22 WBC RBC Hgb Hct MCV MCH MCHC RDW Plt Count Seg Neutrophils % Lymphocytes % Monocytes % Eosinophils % Basophils % Absolute Neutrophils Absolute Lymphocytes Absolute Monocytes Absolute Eosinophils Absolute Basophils Sodium Potassium Chloride Carbon Dioxide Anion Gap BUN Creatinine Est GFR ( Amer) Est GFR (Non-Af Amer) Glucose Calcium Magnesium Total Bilirubin 0.6 AST 48 H ALT 26 Alkaline Phosphatase 64 Total Protein 6.7 Albumin 3.5 Triglycerides 79 Cholesterol 290.24 H LDL Cholesterol Direct 110 H VLDL Cholesterol 16.0 HDL Cholesterol 102 Lipase TSH Free T4 12/21/18 12/21/18 12/21/18 17:13 17:13 22:06 Creatine Kinase 415 H CK-MB (CK-2) Cancelled 7.62 H Troponin I Cancelled 0.026 12/22/18 12/22/18 04:22 04:22 Creatine Kinase 382 H CK-MB (CK-2) 7.73 H Troponin I 0.025 Impressions: Chest X-Ray 12/21/18 13:57 IMPRESSION: Stable cardiomegaly and chronic blunting of the left lateral and posterior costophrenic sulcus. No acute findings Assessment & Plan - Diagnosis (1) End stage renal disease on dialysis Is this a current diagnosis for this admission?: Yes Plan: We will do dialysis today for 3.5 hours, using the patient's left upper arm AV fistula, with 3 potassium bath, blood flow rate of 450 mL per minute, dialysate flow rate of 800 mL per minute, ultrafiltration at least 4 L as tolerated, no heparin and no Procrit. Dialysis treatment orders discussed with her dialysis nurse. Patient is monitored throughout dialysis treatment. She tolerated dialysis procedure without any problems. (2) Bilateral lower extremity edema Is this a current diagnosis for this admission?: Yes Plan: Due to inadequate ultrafiltration during dialysis treatment because of patient's noncompliance to dialysis prescription. (3) Left leg pain Is this a current diagnosis for this admission?: Yes Plan: Possibly due to increased lower extremity swelling. (4) Anemia in chronic kidney disease Is this a current diagnosis for this admission?: Yes Plan: No need for Procrit today. (5) Noncompliance Is this a current diagnosis for this admission?: Yes (6) Diabetes mellitus type 2 in obese Is this a current diagnosis for this admission?: Yes (7) Hypertension Qualifiers: Hypertension type: essential hypertension Qualified Code(s): I10 - Essential (primary) hypertension Is this a current diagnosis for this admission?: Yes Plan: Well-controlled. - Notes Notes: Thank you very much for this consultation. We will supervise dialysis while patient is here in the hospital. - Time Time Spent: 50 to 70 Minutes
[2018-12-22 09:30] LABS: ANION GAP 8 (5-19); BLOOD UREA NITROGEN 13 mg/dL (7-20); CALCIUM 9.2 mg/dL (8.4-10.2); CARBON DIOXIDE 29 mmol/L (22-30); CHLORIDE 101 mmol/L (98-107); GLUCOSE 83 mg/dL (75-110); POTASSIUM 4.1 mmol/L (3.6-5.0); SODIUM 137.5 mmol/L (137-145)
[2018-12-22 11:11] LABS: TROPONIN I 0.028 ng/mL
[2018-12-22 11:15] LABS: CREATINE KINASE MB 6.98 ng/mL (<4.55)
--- NOTE | 2018-12-22 18:38 | XCELERA REPORT ---
[address] [address] Transthoracic Echocardiogram Report Name: LOVELY ESPAÑA Age: 78 yrs Gender: Female : 1940 Patient Status: Inpatient Patient Location: [address] [place], [place] [address] Study Date: 12/22/2018 02:01 PM Height: 63 in Weight: 160 lb BSA: 1.8 m2 Procedure: A complete two-dimensional transthoracic echocardiogram was performed (2D, M-mode, spectral and color flow Doppler). The study was technically difficult with many images being suboptimal in quality. Reason For Study: chf Ordering Physician: JOSE MANUEL MIX Performed By: Sailaja Rowe Interpretation Summary The left ventricular ejection fraction is normal. Doppler measurements suggest pseudonormalized left ventricular relaxation, which is associated with grade II/IV or mild to moderate diastolic dysfunction There is moderate concentric left ventricular hypertrophy. The left ventricle is normal in size. Wall motion cannot be accurately commented on, but no definite regional wall motion abnormalities noted. Borderline right ventricular enlargement. The right ventricular systolic function is normal. The right atrium is mildly dilated. The left atrium is moderately dilated. There is no mitral valve stenosis. There is a mild amount of mitral regurgitation There is a mild to moderate amount of aortic regurgitation There is no aortic valve stenosis There is a mild amount of tricuspid regurgitation There is mild pulmonary hypertension by echo Best estimated right ventricular systolic pressure is elevated at 30-40mmHg. The pulmonic valve is not well visualized. The aortic root is not well visualized but is probably normal size. The inferior vena cava was not well visualized Minimal pericardial effusion. MMode/2D Measurements & Calculations RVDd: 3.9 cm LVIDd: 4.5 cm FS: 36.5 % Ao root diam: 2.6 cm IVSd: 1.3 cm LVIDs: 2.8 cm EDV(Teich): Ao root area: 90.6 ml LVPWd: 1.3 cm 5.5 cm2 ESV(Teich): LA dimension: 4.1 cm 30.4 ml EF(Teich): 66.4 % LVLd ap4: 6.4 cm SV(MOD-sp4): EDV(MOD-sp4): 37.0 ml 53.0 ml LVLs ap4: 5.0 cm ESV(MOD-sp4): 16.0 ml EF(MOD-sp4): 69.8 % Doppler Measurements & Calculations MV E max adolfo: MV P1/2t max adolfo: Ao V2 max: AI max adolfo: 96.7 cm/sec 97.2 cm/sec 183.3 cm/sec 419.3 cm/sec MV A max adolfo: MV P1/2t: 108.9 msec Ao max PG: AI max P.0 cm/sec 13.4 mmHg 70.3 mmHg MVA(P1/2t): 2.0 cm2 MV E/A: 0.81 MV dec slope: AI dec slope: 261.5 cm/sec2 174.6 cm/sec2 MV dec time: AI P1/2t: 0.38 sec 703.4 msec LV V1 max PG: PA V2 max: PI end-d adolfo: TR max adolfo: 7.2 mmHg 85.4 cm/sec 97.7 cm/sec 265.4 cm/sec LV V1 max: PA max P.9 mmHg TR max P.8 cm/sec 28.2 mmHg AV P1/2t-pr_phl: MV P1/2t-pr_phl: 703.4 msec 108.9 msec Left Ventricle The left ventricle is normal in size. There is moderate concentric left ventricular hypertrophy. The left ventricular ejection fraction is normal. Doppler measurements suggest pseudonormalized left ventricular relaxation, which is associated with grade II/IV or mild to moderate diastolic dysfunction. Wall motion cannot be accurately commented on, but no definite regional wall motion abnormalities noted. Right Ventricle Borderline right ventricular enlargement. There is normal right ventricular wall thickness. The right ventricular systolic function is normal. Atria The right atrium is mildly dilated. The left atrium is moderately dilated. Interarterial septum not well visualized and not well dopplered. Cannot comment on ASD/PFO presence. Mitral Valve The mitral valve leaflets are sclerotic, but show no functional abnormalities. There is no mitral valve stenosis. There is a mild amount of mitral regurgitation. Aortic Valve The aortic valve is mildly calcified. There is no aortic valve stenosis. There is a mild to moderate amount of aortic regurgitation. Tricuspid Valve The tricuspid valve is not well visualized, but is grossly normal. There is no tricuspid stenosis. There is a mild amount of tricuspid regurgitation. There is mild pulmonary hypertension by echo. Best estimated right ventricular systolic pressure is elevated at 30-40mmHg. Pulmonic Valve The pulmonic valve is not well visualized. Great Vessels The aortic root is not well visualized but is probably normal size. The inferior vena cava was not well visualized. Effusions Minimal pericardial effusion. : JOSE MANUEL MIX > Kindra Cai
--- NOTE | 2018-12-22 20:44 | PDOC H&P ---
History of Present Illness Admission Date/PCP: 12/21/18 18:53 JOSE MANUEL MIX MD History of Present Illness: LOVELY ESPAÑA is a 78 year old female, she is well-known to me, she has a history of end-stage renal disease on hemodialysis she came to the office with her daughter because of bilateral lower extremity swelling she was volume overloaded, I was concerned about CHF but she is on hemodialysis chronically, I was going to admit her directly into the hospital from the office but I was not sure if we have a dialysis bed so I advised that to go to the emergency room for evaluation. In the ER she was evaluated apparently she was in the emergency room a day before this present visit. She is a very poor historian she is not very coherent but it seems that she does not always finish her dialysis session and that could also be a factor in the volume problem that she is experiencing. She was admitted into the hospital for further evaluation. A 2D echo was done, it demonstrated normal ejection fraction of left ventricle, the Doppler measurement demonstrated pseudonormalization consistent with grade 2 diastolic dysfunction of left ventricle Past Medical History Cardiac Medical History: Reports: Myocardial Infarction - 2017; POSSIBLE CARDIAC STENT PLACEMENT "TO KEEP THE VALVE OPEN", Hyperlipidema, Hypertension - HX. OF, CURRENTLY OFF HER HTN MEDS DUE TO LOW BP Pulmonary Medical History: Reports: Pneumonia - NOVEMBER 2017 Endocrine Medical History: Reports: Diabetes Mellitus Type 2, Hypothyroidism Renal/ Medical History: Reports: End Stage Renal Disease Musculoskeltal Medical History: Reports: Arthritis Hematology: Reports: Anemia - PER PREVIOUS CHARTS Past Surgical History Past Surgical History: Reports: Cardiac Catheterization - Possible cardiac daryn terization with stent placement. Records are pending, Cholecystectomy Denies: Pacemaker Social History Smoking Status: Never Smoker Frequency of Alcohol Use: None Hx Recreational Drug Use: No Hx Prescription Drug Abuse: No - Advance Directive Resuscitation Status: Full Code Family History Family History: CAD, Hypertension, Other - Kidney disease Parental Family History Reviewed: Yes Children Family History Reviewed: Yes Sibling(s) Family History Reviewed.: Yes Medication/Allergy Home Medications: Amlodipine Besylate [Norvasc 10 mg Tablet] 10 mg PO DAILY 12/22/18 Aspirin [Micheal Chewable Aspirin] 81 mg PO DAILY 12/22/18 Atorvastatin Calcium [Lipitor 80 mg Tablet] 80 mg PO DAILY 12/22/18 Clonidine HCl [Catapres 0.2 mg Tablet] 0.2 mg PO Q12 12/22/18 Levothyroxine Sodium 150 mcg PO Q6AM 12/22/18 Allergies/Adverse Reactions: adhesive tape Allergy (Intermediate, Verified 12/21/18 13:30) Generalized rash Review of Systems ROS unobtainable: Other - She is a poor historian Physical Exam Vital Signs: Temp Pulse Resp BP Pulse Ox 97.3 F 58 L 18 100/43 L 64 L 12/22/18 15:00 12/22/18 19:00 12/22/18 15:00 12/22/18 15:00 12/22/18 15:00 Intake & Output 12/21/18 12/22/18 12/23/18 06:59 06:59 06:59 Intake Total 150 Output Total 3500 Balance -3350 Weight 70.7 kg General appearance: PRESENT: mild distress Eye exam: PRESENT: other - There is right corneal opacification Respiratory exam: PRESENT: clear to auscultation debbie Cardiovascular exam: PRESENT: +S1, +S2, systolic murmur GI/Abdominal exam: PRESENT: soft Extremities exam: PRESENT: pedal edema Neurological exam: PRESENT: alert Results Laboratory Results: 12/22/18 04:22 12/22/18 08:30 12/21/18 12/21/18 12/22/18 17:13 17:13 04:22 WBC 3.8 L RBC 3.25 L Hgb 11.6 L Hct 35.1 L MCV 108 H MCH 35.9 H MCHC 33.1 RDW 17.2 H Plt Count 218 Seg Neutrophils % 52.6 Lymphocytes % 29.0 Monocytes % 13.5 H Eosinophils % 2.6 Basophils % 2.3 H Absolute Neutrophils 2.0 Absolute Lymphocytes 1.1 Absolute Monocytes 0.5 Absolute Eosinophils 0.1 Absolute Basophils 0.1 Sodium Potassium Chloride Carbon Dioxide Anion Gap BUN Creatinine Est GFR ( Amer) Est GFR (Non-Af Amer) Glucose Calcium Magnesium 1.8 Total Bilirubin AST ALT Alkaline Phosphatase Total Protein Albumin Triglycerides Cholesterol LDL Cholesterol Direct VLDL Cholesterol HDL Cholesterol TSH 232.00 H Free T4 < 0.07 L 12/22/18 12/22/18 04:22 08:30 WBC RBC Hgb Hct MCV MCH MCHC RDW Plt Count Seg Neutrophils % Lymphocytes % Monocytes % Eosinophils % Basophils % Absolute Neutrophils Absolute Lymphocytes Absolute Monocytes Absolute Eosinophils Absolute Basophils Sodium 137.5 Potassium 4.1 Chloride 101 Carbon Dioxide 29 Anion Gap 8 BUN 13 Creatinine 6.84 H Est GFR ( Amer) 7 L Est GFR (Non-Af Amer) 6 L Glucose 83 Calcium 9.2 Magnesium Total Bilirubin 0.6 AST 48 H ALT 26 Alkaline Phosphatase 64 Total Protein 6.7 Albumin 3.5 Triglycerides 79 Cholesterol 290.24 H LDL Cholesterol Direct 110 H VLDL Cholesterol 16.0 HDL Cholesterol 102 TSH Free T4 12/21/18 12/21/18 12/21/18 17:13 17:13 22:06 Creatine Kinase 415 H CK-MB (CK-2) Cancelled 7.62 H Troponin I Cancelled 0.026 12/22/18 12/22/18 12/22/18 04:22 04:22 10:05 Creatine Kinase 382 H CK-MB (CK-2) 7.73 H 6.98 H Troponin I 0.025 0.028 12/22/18 10:22 Creatine Kinase 357 H CK-MB (CK-2) Troponin I Impressions: Chest X-Ray 12/21/18 13:57 IMPRESSION: Stable cardiomegaly and chronic blunting of the left lateral and posterior costophrenic sulcus. 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
[2018-12-22] MEDS: CLONIDINE HCL 0.2 MG TABLET PO SCH (23:17)
[2018-12-23] MEDS: HYDROCODONE/ACETAMINOPHEN 5-325 MG TABLET PO PRN (00:08)
[2018-12-23 05:54] LABS: HEMOGLOBIN 11.3 g/dL (12.0-15.5); MEAN CORPUSCULAR HEMOGLOBIN 35.6 pg (27.0-33.4); MEAN CORPUSCULAR HGB CONC 33.2 g/dL (32.0-36.0); MEAN CORPUSCULAR VOLUME 107 fl (80-97); PLATELET COUNT 260 10^3/uL (150-450); RED BLOOD COUNT 3.17 10^6/uL (3.72-5.28); RED CELL DISTRIBUTION WIDTH 17.5 % (11.5-14.0); WHITE BLOOD COUNT 3.3 10^3/uL (4.0-10.5)
[2018-12-23] MEDS ORDERED: LEVOTHYROXINE SODIUM 0.15 MG TABLET PO SCH (06:00)
[2018-12-23 06:18] LABS: ABSOLUTE LYMPHOCYTES# (MANUAL) 1.1 10^3/uL (0.5-4.7); ABSOLUTE MONOCYTES # (MANUAL) 0.1 10^3/uL (0.1-1.4); BASOPHILS % (MANUAL) 3 % (0-2); EOSINOPHILS % (MANUAL) 4 % (0-6); LYMPHOCYTES % (MANUAL) 34 % (13-45); MONOCYTES % (MANUAL) 2 % (3-13); SEGMENTED NEUTROPHILS % (MAN) 57 % (42-78); TOTAL CELLS COUNTED 100
[2018-12-23 06:19] LABS: TOXIC GRANULATION 1+; TOXIC VACUOLATION PRESENT
[2018-12-23 06:20] LABS: ANISOCYTOSIS 1+; BURR CELLS SLIGHT; OVALOCYTES 2+; PLATELET COMMENT ADEQUATE; POIKILOCYTOSIS 2+; SCHISTOCYTES 1+
[2018-12-23] MEDS: HEPARIN SOD (PORCINE) 5,000 UNIT/ML 1 ML SYRINGE SUBCUT SCH ×3 (06:47→21:07)
[2018-12-23] MEDS: LEVOTHYROXINE SODIUM 0.15 MG TABLET PO SCH (06:47)
[2018-12-23] MEDS: INSULIN LISPRO 100 UNIT/ML 3 ML VIAL SUBCUT SCH ×4 (09:29→21:08)
[2018-12-23 09:30] LABS: ANION GAP 8 (5-19); BLOOD UREA NITROGEN 9 mg/dL (7-20); CARBON DIOXIDE 34 mmol/L (22-30); CHLORIDE 98 mmol/L (98-107); GLUCOSE 90 mg/dL (75-110); POTASSIUM 4.1 mmol/L (3.6-5.0); SODIUM 140.1 mmol/L (137-145)
[2018-12-23] MEDS: CLONIDINE HCL 0.2 MG TABLET PO SCH ×2 (09:33→21:08)
[2018-12-23] MEDS: AMLODIPINE BESYLATE 10 MG TABLET PO SCH (09:33)
[2018-12-23] MEDS: ASPIRIN 81 MG TABLET, CHEWABLE PO SCH (09:33)
[2018-12-23] MEDS ORDERED: ATORVASTATIN CALCIUM 80 MG TABLET PO SCH (10:00)
[2018-12-23] MEDS: ATORVASTATIN CALCIUM 80 MG TABLET PO SCH (21:07)
[2018-12-24] MEDS: HEPARIN SOD (PORCINE) 5,000 UNIT/ML 1 ML SYRINGE SUBCUT SCH ×3 (05:24→22:17)
[2018-12-24] MEDS: LEVOTHYROXINE SODIUM 0.15 MG TABLET PO SCH (05:24)
[2018-12-24] MEDS: INSULIN LISPRO 100 UNIT/ML 3 ML VIAL SUBCUT SCH ×4 (08:39→21:54)
[2018-12-24] MEDS: ASPIRIN 81 MG TABLET, CHEWABLE PO SCH (11:26)
[2018-12-24] MEDS: CLONIDINE HCL 0.2 MG TABLET PO SCH ×2 (11:26→22:16)
[2018-12-24] MEDS: AMLODIPINE BESYLATE 10 MG TABLET PO SCH (11:42)
[2018-12-24] MEDS: ATORVASTATIN CALCIUM 80 MG TABLET PO SCH ×2 (21:57→22:25)
[2018-12-25] MEDS ORDERED: NORMAL SALINE 1000 ML 1,000 ML IV PRN (05:00)
[2018-12-25] MEDS: HEPARIN SOD (PORCINE) 5,000 UNIT/ML 1 ML SYRINGE SUBCUT SCH ×3 (06:18→22:02)
[2018-12-25] MEDS: LEVOTHYROXINE SODIUM 0.15 MG TABLET PO SCH (06:18)
[2018-12-25 06:27] LABS: HEMATOCRIT 30.4 % (36.0-47.0); MEAN CORPUSCULAR HEMOGLOBIN 35.8 pg (27.0-33.4); MEAN CORPUSCULAR HGB CONC 32.9 g/dL (32.0-36.0); MEAN CORPUSCULAR VOLUME 109 fl (80-97); PLATELET COUNT 218 10^3/uL (150-450); RED BLOOD COUNT 2.79 10^6/uL (3.72-5.28); RED CELL DISTRIBUTION WIDTH 17.7 % (11.5-14.0); WHITE BLOOD COUNT 3.5 10^3/uL (4.0-10.5)
[2018-12-25 06:58] LABS: ANION GAP 7 (5-19); BLOOD UREA NITROGEN 19 mg/dL (7-20); CALCIUM 8.8 mg/dL (8.4-10.2); CARBON DIOXIDE 30 mmol/L (22-30); CHLORIDE 101 mmol/L (98-107); GLUCOSE 78 mg/dL (75-110); POTASSIUM 4.6 mmol/L (3.6-5.0); SODIUM 138.4 mmol/L (137-145)
[2018-12-25] MEDS: INSULIN LISPRO 100 UNIT/ML 3 ML VIAL SUBCUT SCH ×4 (08:22→22:02)
[2018-12-25] MEDS ORDERED: EPOETIN ALFA INJ 20000 UNIT/1 ML VIAL (RENAL) IV ONE (08:51)
--- NOTE | 2018-12-25 09:00 | PDOC PROGRESS REPORT ---
Subjective Progress Note for:: 12/25/18 Subjective:: I am seeing the patient during dialysis this morning. She is again very hard of hearing so we need to tap her in order for her to open her eyes which she did. She did not verbalize any complaints. Her blood pressure went down initially after receptor ultrafiltration to 3.5 L so we have to decrease it now to 3 L. So far she is tolerating dialysis without any other problems. Reason For Visit: HEART FAILURE Physical Exam Vital Signs: Temp Pulse Resp BP Pulse Ox 97.4 F 73 18 119/58 L 98 12/24/18 15:50 12/25/18 07:00 12/24/18 15:50 12/24/18 15:50 12/25/18 04:20 Intake & Output 12/24/18 12/25/18 12/26/18 06:59 06:59 06:59 Intake Total 440 640 Output Total 0 0 Balance 440 640 Weight 76.7 kg Vitals during dialysis: Blood pressure 111/59, heart rate of 65, blood flow rate of 450 mL/min and dialysate flow rate of 800 mL/min. Exam: General appearance: PRESENT: no acute distress, cooperative, well-developed, well-nourished Head exam: PRESENT: atraumatic, normocephalic Eye exam: PRESENT: conjunctiva slightly pale, PERRLA. ABSENT: scleral icterus Neck exam: ABSENT: JVD Respiratory exam: PRESENT: Diminished breath sounds. ABSENT: crackles, rales, rhonchi, unlabored, wheezes Cardiovascular exam: PRESENT: Regular rate rhythm -+S1, +S2. ABSENT: diastolic murmur, systolic murmur GI/Abdominal exam: PRESENT: normal bowel sounds, soft. ABSENT: guarding, mass, tenderness Extremities exam: Improved bilateral feet edema Neurological exam: PRESENT: Somewhat somnolent but arousable and responds when prompted. Skin exam: PRESENT: dry, warm, Results Laboratory Results: 12/25/18 05:24 12/25/18 05:24 12/25/18 12/25/18 05:24 05:24 WBC 3.5 L RBC 2.79 L Hgb 10.0 L Hct 30.4 L MCV 109 H MCH 35.8 H MCHC 32.9 RDW 17.7 H Plt Count 218 Sodium 138.4 Potassium 4.6 Chloride 101 Carbon Dioxide 30 Anion Gap 7 BUN 19 Creatinine 7.82 H Est GFR ( Amer) 6 L Est GFR (Non-Af Amer) 5 L Glucose 78 Calcium 8.8 12/21/18 12/21/18 12/21/18 17:13 17:13 22:06 Creatine Kinase 415 H CK-MB (CK-2) Cancelled 7.62 H Troponin I Cancelled 0.026 12/22/18 12/22/18 12/22/18 04:22 04:22 10:05 Creatine Kinase 382 H CK-MB (CK-2) 7.73 H 6.98 H Troponin I 0.025 0.028 12/22/18 10:22 Creatine Kinase 357 H CK-MB (CK-2) Troponin I Impressions: Chest X-Ray 12/21/18 13:57 IMPRESSION: Stable cardiomegaly and chronic blunting of the left lateral and posterior costophrenic sulcus. No acute findings Assessment & Plan - Diagnosis (1) End stage renal disease on dialysis Is this a current diagnosis for this admission?: Yes Plan: We will do dialysis today for 3 hours, using the patient's AV fistula, with 2 potassium bath, blood flow rate of 450 mL per minute, dialysate flow rate of 800 mL per minute, ultrafiltration 3 L as tolerated, heparin and Procrit with 5000 units during dialysis intravenously. Dialysis treatment plan discussed with our dialysis nurse. Patient will be monitored throughout dialysis treatment. Patient has been stable and improved clinically. From nephrology standpoint I think patient can be safely discharged home unless there are other issues. (2) Bilateral lower extremity edema Is this a current diagnosis for this admission?: Yes Plan: Much improved after ultrafiltration to dialysis. (3) Left leg pain Is this a current diagnosis for this admission?: Yes Plan: Seems to improve as the patient is no longer complaining today. (4) Anemia in chronic kidney disease Is this a current diagnosis for this admission?: Yes Plan: We will give Procrit 5000 units IV through dialysis this morning. (5) Noncompliance Is this a current diagnosis for this admission?: Yes (6) Diabetes mellitus type 2 in obese Is this a current diagnosis for this admission?: Yes (7) Hypertension Qualifiers: Hypertension type: essential hypertension Qualified Code(s): I10 - Essential (primary) hypertension Is this a current diagnosis for this admission?: Yes - Time Time with patient: 15-25 minutes
[2018-12-25] MEDS ORDERED: EPOETIN ALFA 5,000 UNIT in SYRINGE, DISPOSABLE, 1 EACH IV PRN (09:06)
[2018-12-25] MEDS: ASPIRIN 81 MG TABLET, CHEWABLE PO SCH (17:11)
[2018-12-25] MEDS: CLONIDINE HCL 0.2 MG TABLET PO SCH ×2 (17:11→22:01)
[2018-12-25] MEDS: AMLODIPINE BESYLATE 10 MG TABLET PO SCH (17:12)
--- NOTE | 2018-12-25 21:45 | PDOC PROGRESS REPORT ---
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 I tried to reach her daughter about CODE STATUS and also to discuss palliative care with her mother because she seems to be discussing end-of-life issues but could not reach the daughter Reason For Visit: HEART FAILURE Physical Exam Vital Signs: Temp Pulse Resp BP Pulse Ox 97.6 F 59 L 14 128/56 H 100 12/25/18 16:39 12/25/18 19:00 12/25/18 16:39 12/25/18 16:39 12/25/18 16:39 Intake & Output 12/24/18 12/25/18 12/26/18 06:59 06:59 06:59 Intake Total 440 640 Output Total 0 0 2200 Balance 440 640 -2200 Weight 76.7 kg General appearance: PRESENT: no acute distress Eye exam: PRESENT: PERRLA Respiratory exam: PRESENT: clear to auscultation debbie Cardiovascular exam: PRESENT: +S1, +S2 GI/Abdominal exam: PRESENT: soft Results Laboratory Results: 12/25/18 05:24 12/25/18 05:24 12/25/18 12/25/18 05:24 05:24 WBC 3.5 L RBC 2.79 L Hgb 10.0 L Hct 30.4 L MCV 109 H MCH 35.8 H MCHC 32.9 RDW 17.7 H Plt Count 218 Sodium 138.4 Potassium 4.6 Chloride 101 Carbon Dioxide 30 Anion Gap 7 BUN 19 Creatinine 7.82 H Est GFR ( Amer) 6 L Est GFR (Non-Af Amer) 5 L Glucose 78 Calcium 8.8 12/21/18 12/21/18 12/21/18 17:13 17:13 22:06 Creatine Kinase 415 H CK-MB (CK-2) Cancelled 7.62 H Troponin I Cancelled 0.026 12/22/18 12/22/18 12/22/18 04:22 04:22 10:05 Creatine Kinase 382 H CK-MB (CK-2) 7.73 H 6.98 H Troponin I 0.025 0.028 12/22/18 10:22 Creatine Kinase 357 H CK-MB (CK-2) Troponin I Impressions: Chest X-Ray 12/21/18 13:57 IMPRESSION: Stable cardiomegaly and chronic blunting of the left lateral and posterior costophrenic sulcus. 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
[2018-12-25] MEDS: ATORVASTATIN CALCIUM 80 MG TABLET PO SCH (22:02)
[2018-12-25] MEDS ORDERED: DOPAMINE HCL/DEXTROSE 5%-WATER 800 MG/250 ML RTUINJ IV ONE (22:18)
[2018-12-25] MEDS: DOPAMINE HCL 800 MG/D5W 250 ML IV PRN (22:20)
[2018-12-26] MEDS: HEPARIN SOD (PORCINE) 5,000 UNIT/ML 1 ML SYRINGE SUBCUT SCH ×2 (05:48→13:08)
[2018-12-26] MEDS: LEVOTHYROXINE SODIUM 0.15 MG TABLET PO SCH (05:49)
[2018-12-26] MEDS: INSULIN LISPRO 100 UNIT/ML 3 ML VIAL SUBCUT SCH ×4 (08:43→22:59)
[2018-12-26] MEDS: AMLODIPINE BESYLATE 10 MG TABLET PO SCH (09:00)
[2018-12-26] MEDS: CLONIDINE HCL 0.2 MG TABLET PO SCH (09:00)
[2018-12-26] MEDS ORDERED: MIDODRINE HCL 5 MG TABLET PO SCH (10:00)
[2018-12-26] MEDS ORDERED: MIDODRINE HCL 5 MG TABLET PO ONE (10:03)
--- NOTE | 2018-12-26 10:34 | PDOC PROGRESS REPORT ---
Subjective Progress Note for:: 12/26/18 Subjective:: Patient has been hypotensive since last night. She was started on dopamine drip but her IV site is not good. Currently the dopamine drip is not running. She also underwent dialysis yesterday with ultrafiltration of 2200 mL. This morning she appears to be better and she tells me that she feels better. She is actually a little bit more awake and responding to questions although is very difficult to communicate with her because she is very hard of hearing. She did not verbalize any complaints. Reason For Visit: HEART FAILURE Physical Exam Vital Signs: Temp Pulse Resp BP Pulse Ox 97.5 F 67 17 87/43 L 98 12/26/18 08:59 12/26/18 08:59 12/26/18 08:59 12/26/18 08:59 12/26/18 08:59 Intake & Output 12/25/18 12/26/18 12/27/18 06:59 06:59 06:59 Intake Total 640 460 Output Total 0 2200 Balance 640 -1740 Weight 74.8 kg Exam: General appearance: PRESENT: no acute distress, cooperative, well-developed, well-nourished Head exam: PRESENT: atraumatic, normocephalic Eye exam: PRESENT: conjunctiva pink, PERRLA. ABSENT: scleral icterus Neck exam: ABSENT: JVD Respiratory exam: PRESENT: Normal breath sounds. ABSENT: crackles, rales, rhonchi, unlabored, wheezes Cardiovascular exam: PRESENT: Regular rate rhythm -+S1, +S2. ABSENT: diastolic murmur, systolic murmur GI/Abdominal exam: PRESENT: normal bowel sounds, soft. ABSENT: guarding, mass, tenderness Extremities exam: Improved trace bilateral feet edema Neurological exam: PRESENT: alert, awake, patient has difficult of hearing. Skin exam: PRESENT: dry, warm, Results Laboratory Results: 12/25/18 05:24 12/25/18 05:24 12/21/18 12/21/18 12/21/18 17:13 17:13 22:06 Creatine Kinase 415 H CK-MB (CK-2) Cancelled 7.62 H Troponin I Cancelled 0.026 12/22/18 12/22/18 12/22/18 04:22 04:22 10:05 Creatine Kinase 382 H CK-MB (CK-2) 7.73 H 6.98 H Troponin I 0.025 0.028 12/22/18 10:22 Creatine Kinase 357 H CK-MB (CK-2) Troponin I Impressions: Chest X-Ray 12/21/18 13:57 IMPRESSION: Stable cardiomegaly and chronic blunting of the left lateral and posterior costophrenic sulcus. No acute findings Assessment & Plan - Diagnosis (1) Hypotension Is this a current diagnosis for this admission?: Yes Plan: She had ultrafiltration through dialysis yesterday. Her clonidine and Norvasc this been held for the last few days because of low blood pressures. She does not really have any leukocytosis or any evidence of infection. I will stop the clonidine and Norvasc. We will try midodrine. I ordered midodrine 10 mg p.o. x1 dose now. Start midodrine 5 mg p.o. 3 times daily. (2) End stage renal disease on dialysis Is this a current diagnosis for this admission?: Yes Plan: Next dialysis is tomorrow. (3) Bilateral lower extremity edema Is this a current diagnosis for this admission?: Yes Plan: Improved. (4) Left leg pain Is this a current diagnosis for this admission?: Yes Plan: Seems to improve as the patient is no longer complaining today. (5) Anemia in chronic kidney disease Is this a current diagnosis for this admission?: Yes (6) Noncompliance Is this a current diagnosis for this admission?: Yes (7) Diabetes mellitus type 2 in obese Is this a current diagnosis for this admission?: Yes - Notes Notes: Discussed orders with her nurse today. - Time Time with patient: 15-25 minutes
[2018-12-26] MEDS: ASPIRIN 81 MG TABLET, CHEWABLE PO SCH (11:00)
--- NOTE | 2018-12-26 11:57 | RADIOLOGY REPORT (SQ) ---
EXAM DESCRIPTION: CHEST SINGLE VIEW COMPLETED DATE/TIME: 12/26/2018 11:45 am REASON FOR STUDY: LINE PLACEMENT COMPARISON: 12/21/2018 NUMBER OF VIEWS: One view. TECHNIQUE: Single frontal radiographic image of the chest acquired. LIMITATIONS: None. FINDINGS: LUNGS AND PLEURA: Stable chronic pleural and parenchymal density left costophrenic angle. MEDIASTINUM AND HEART: Stable heart size and mediastinal structures. SUPPORT DEVICES: In normal placement of right IJ central line with tip overlying SVC. BONY STRUCTURES: No acute findings. HARDWARE: None. OTHER: No other significant finding. IMPRESSION: Appropriate position of central line. No pneumothorax. Reading location - IP/workstation name: [email or web address]
[2018-12-26] MEDS: MIDODRINE HCL 5 MG TABLET PO SCH ×2 (13:07→17:06)
[2018-12-26] MEDS: ACETAMINOPHEN 325 MG TABLET PO PRN ×2 (13:07→20:54)
[2018-12-26] MEDS ORDERED: ONDANSETRON HCL INJ/PF 4 MG/2 ML SDV ONE (13:22)
--- NOTE | 2018-12-26 13:24 | OPERATIVE REPORT E ---
Operative Report NAME: LOVELY ESPAÑA : 1940 AGE: 78Y DATE OF SURGERY: 12/26/2018 ROOM: 324 PREOPERATIVE DIAGNOSIS: POOR VEINS FOR IV ACCESS. PATIENT NEEDED A CENTRAL LINE PRIMARILY FOR DOPAMINE FOR HYPOTENSION. POSTOPERATIVE DIAGNOSIS: POOR VEINS FOR IV ACCESS. PATIENT NEEDED A CENTRAL LINE PRIMARILY FOR DOPAMINE FOR HYPOTENSION. OPERATION: Placement of right internal jugular vein triple-lumen catheter under ultrasound guidance. SURGEON: BRAEDN PEARSON M.D. ANESTHESIA: Local. PROCEDURE: Patient is placed in slight Trendelenburg position. The right neck prepped and draped in the usual sterile fashion. With the use of ultrasound, the right internal jugular vein was identified. Local incision filtrated over the skin on top of the jugular vein. The jugular vein was then punctured and a guidewire passed through the needle towards the superior vena cava. Puncture site was enlarged and dilated. Next, a triple-lumen catheter was then inserted through the guidewire, this was about 15 cm. All of the three ports aspirated blood easily and instilled saline easily. Catheter was then anchored to the skin with 3-0 Silk. The incision site was placed to the Bio-Patch and a transparent dressing placed over the BIO-patch and catheter. Chest x-ray was obtained a little later which showed catheter in good position with no pneumothorax. Patient tolerated procedure well. DICTATING PHYSICIAN: BRADEN PEARSON M.D. [id number] PHY#: [id number] ID: [id number] JOB#: [id number] ACCT: [id number] cc:BRADEN PEARSON M.D. >
[2018-12-26] MEDS: HYDROCODONE/ACETAMINOPHEN 5-325 MG TABLET PO PRN (17:07)
--- NOTE | 2018-12-26 20:27 | PDOC PROGRESS REPORT ---
Subjective Progress Note for:: 12/26/18 Subjective:: Patient was seen by the bedside, earlier this morning the blood pressure was very low she was started on dopamine, this afternoon when she was seen on the floor the blood pressure was 60 systolic the dopamine was increased from 5-10, she is on hemodialysis chronically. Yesterday she has expressed desire to but today when she was asked if she wants to be a DNR or wants to be on life support if the heart should fail she opted for life support so because she is a full code, she is very unstable hemodynamically to keep on the floor, she be transferred to ICU for close monitoring Reason For Visit: HEART FAILURE Physical Exam Vital Signs: Temp Pulse Resp BP Pulse Ox 98.5 F 95 22 H 202/88 H 93 12/26/18 19:12 12/26/18 19:12 12/26/18 19:12 12/26/18 19:12 12/26/18 19:12 Intake & Output 12/25/18 12/26/18 12/27/18 06:59 06:59 06:59 Intake Total 640 460 92 Output Total 0 2200 Balance 640 -1740 92 Weight 74.8 kg 70.7 kg General appearance: PRESENT: no acute distress Eye exam: PRESENT: PERRLA Respiratory exam: PRESENT: clear to auscultation debbie Cardiovascular exam: PRESENT: +S1, +S2 GI/Abdominal exam: PRESENT: soft Results Laboratory Results: 12/25/18 05:24 12/25/18 05:24 12/21/18 12/21/18 12/21/18 17:13 17:13 22:06 Creatine Kinase 415 H CK-MB (CK-2) Cancelled 7.62 H Troponin I Cancelled 0.026 12/22/18 12/22/18 12/22/18 04:22 04:22 10:05 Creatine Kinase 382 H CK-MB (CK-2) 7.73 H 6.98 H Troponin I 0.025 0.028 12/22/18 10:22 Creatine Kinase 357 H CK-MB (CK-2) Troponin I Impressions: Chest X-Ray 12/26/18 10:46 IMPRESSION: Appropriate position of central line. No pneumothorax. Assessment & Plan - Diagnosis (1) Acute diastolic (congestive) heart failure Is this a current diagnosis for this admission?: Yes (2) End stage renal disease Is this a current diagnosis for this admission?: Yes (3) T2DM (type 2 diabetes mellitus) Qualifiers: Diabetes mellitus director insulin use: without snf use Diabetes mellitus complication status: with kidney complications Diabetes mellitus complication detail: with chronic kidney disease Chronic kidney disease stage: on chronic dialysis Qualified Code(s): E11.22 - Type 2 diabetes mellitus with diabetic chronic kidney disease; N18.6 - End stage renal disease; Z99.2 - Dependence on renal dialysis Is this a current diagnosis for this admission?: Yes (4) Hypotension Qualifiers: Hypotension type: other hypotension type Qualified Code(s): I95.89 - Other hypotension Is this a current diagnosis for this admission?: Yes Plan: Continue dopamine, transferred to ICU
[2018-12-27] MEDS: ATORVASTATIN CALCIUM 80 MG TABLET PO SCH ×2 (00:07→22:01)
[2018-12-27] MEDS: HYDROCODONE/ACETAMINOPHEN 5-325 MG TABLET PO PRN (00:07)
[2018-12-27] MEDS: HEPARIN SOD (PORCINE) 5,000 UNIT/ML 1 ML SYRINGE SUBCUT SCH ×4 (00:07→22:01)
[2018-12-27 03:58] LABS: ABSOLUTE LYMPHOCYTES (AUTO) 0.8 10^3/uL (0.5-4.7); ABSOLUTE MONOCYTES (AUTO) 0.5 10^3/uL (0.1-1.4); ABSOLUTE NEUT (AUTO) 4.3 10^3/uL (1.7-8.2); BASOPHILS % (AUTO) 0.8 % (0-2); EOSINOPHILS % (AUTO) 0.3 % (0-6); HEMATOCRIT 28.7 % (36.0-47.0); HEMOGLOBIN 9.6 g/dL (12.0-15.5); LYMPHOCYTES % (AUTO) 14.3 % (13-45); MEAN CORPUSCULAR HEMOGLOBIN 35.7 pg (27.0-33.4); MEAN CORPUSCULAR HGB CONC 33.3 g/dL (32.0-36.0); MEAN CORPUSCULAR VOLUME 107 fl (80-97); MONOCYTES % (AUTO) 9.5 % (3-13); PLATELET COUNT 224 10^3/uL (150-450); RED BLOOD COUNT 2.67 10^6/uL (3.72-5.28); RED CELL DISTRIBUTION WIDTH 16.8 % (11.5-14.0); SEGMENTED NEUTROPHILS % (AUTO) 75.1 % (42-78); TOTAL CELLS COUNTED % (AUTO) 100 %; WHITE BLOOD COUNT 5.8 10^3/uL (4.0-10.5)
[2018-12-27 04:20] LABS: ANION GAP 7 (5-19); BLOOD UREA NITROGEN 19 mg/dL (7-20); CALCIUM 8.8 mg/dL (8.4-10.2); CARBON DIOXIDE 32 mmol/L (22-30); CHLORIDE 97 mmol/L (98-107); GLUCOSE 109 mg/dL (75-110); POTASSIUM 4.5 mmol/L (3.6-5.0); SODIUM 136.1 mmol/L (137-145)
[2018-12-27] MEDS ORDERED: EPOETIN ALFA 5,000 UNIT in SYRINGE, DISPOSABLE, 1 EACH IV PRN (05:00)
[2018-12-27] MEDS ORDERED: NORMAL SALINE 1000 ML 1,000 ML IV PRN (05:00)
[2018-12-27] MEDS ORDERED: EPOETIN ALFA INJ 20000 UNIT/1 ML VIAL (RENAL) IV PRN (05:00)
[2018-12-27] MEDS: LEVOTHYROXINE SODIUM 0.15 MG TABLET PO SCH (06:39)
--- NOTE | 2018-12-27 09:19 | PDOC PROGRESS REPORT ---
Subjective Progress Note for:: 12/27/18 Subjective:: I am seeing the patient during dialysis this morning. She was transferred here in the ICU last night because of hypotension. She has been on dopamine drip and still hypotensive. I started her midodrine yesterday. Patient tells me that she feels better and her only concern is she wants to go to the bathroom because she has not had a bowel movement for 5 days according to the patient. Patient is being monitored toward closely. Reason For Visit: HEART FAILURE Physical Exam Vital Signs: Temp Pulse Resp BP Pulse Ox 97.9 F 75 12 111/66 100 12/27/18 08:00 12/27/18 08:00 12/27/18 08:00 12/27/18 08:00 12/27/18 08:00 Intake & Output 12/26/18 12/27/18 12/28/18 06:59 06:59 06:59 Intake Total 460 236 Output Total 2200 0 Balance -1740 236 Weight 74.8 kg 71.6 kg Vitals during dialysis: Blood pressure 93/52, heart rate of 78, oxygen saturation 100% with oxygen nasal cannula respiratory rate of 11, blood flow rate of 450 mL/min and dialysate flow rate of 800 mL/min. Exam: General appearance: PRESENT: no acute distress, cooperative, well-developed, well-nourished Head exam: PRESENT: atraumatic, normocephalic Eye exam: PRESENT: conjunctiva slightly pale, PERRLA. Noted some clear drainage on her eyes. She is legally blind. ABSENT: scleral icterus Neck exam: ABSENT: JVD Respiratory exam: PRESENT: Normal breath sounds. ABSENT: crackles, rales, rhonchi, unlabored, wheezes Cardiovascular exam: PRESENT: Regular rate rhythm -+S1, +S2. ABSENT: diastolic murmur, systolic murmur GI/Abdominal exam: PRESENT: normal bowel sounds, soft. ABSENT: guarding, mass, tenderness Extremities exam: Bilateral feet pitting edema Neurological exam: PRESENT: alert, awake, very difficult of hearing, oriented to person, place and time. Skin exam: PRESENT: dry, warm, Results Laboratory Results: 12/27/18 03:45 12/27/18 03:45 12/27/18 12/27/18 03:45 03:45 WBC 5.8 RBC 2.67 L Hgb 9.6 L Hct 28.7 L MCV 107 H MCH 35.7 H MCHC 33.3 RDW 16.8 H Plt Count 224 Seg Neutrophils % 75.1 Lymphocytes % 14.3 Monocytes % 9.5 Eosinophils % 0.3 Basophils % 0.8 Absolute Neutrophils 4.3 Absolute Lymphocytes 0.8 Absolute Monocytes 0.5 Absolute Eosinophils 0.0 Absolute Basophils 0.0 Sodium 136.1 L Potassium 4.5 Chloride 97 L Carbon Dioxide 32 H Anion Gap 7 BUN 19 Creatinine 7.27 H Est GFR ( Amer) 7 L Est GFR (Non-Af Amer) 5 L Glucose 109 Calcium 8.8 12/21/18 12/21/18 12/21/18 17:13 17:13 22:06 Creatine Kinase 415 H CK-MB (CK-2) Cancelled 7.62 H Troponin I Cancelled 0.026 12/22/18 12/22/18 12/22/18 04:22 04:22 10:05 Creatine Kinase 382 H CK-MB (CK-2) 7.73 H 6.98 H Troponin I 0.025 0.028 12/22/18 10:22 Creatine Kinase 357 H CK-MB (CK-2) Troponin I Impressions: Chest X-Ray 12/26/18 10:46 IMPRESSION: Appropriate position of central line. No pneumothorax. Assessment & Plan - Diagnosis (1) Hypotension Is this a current diagnosis for this admission?: Yes Plan: She had ultrafiltration through dialysis last Tuesday. Her clonidine and Norvasc had been held for the last few days because of low blood pressures. She does not really have any leukocytosis or any evidence of infection. I stopped the clonidine and Norvasc. Increase midodrine to 10 mg p.o. 3 times daily. Continue to titrate dopamine. (2) End stage renal disease on dialysis Is this a current diagnosis for this admission?: Yes Plan: We will do dialysis today for 3 hours, using the patient's AV fistula, with 2 potassium bath, blood flow rate of 450 mL per minute, dialysate flow rate of 800 mL per minute, ultrafiltration only 1 L as tolerated, no heparin and Procrit with 5000 units during dialysis intravenously. Dialysis plan discussed with her dialysis nurse who will be monitoring her throughout dialysis treatment very carefully. (3) Bilateral lower extremity edema Is this a current diagnosis for this admission?: Yes Plan: Improved. (4) Left leg pain Is this a current diagnosis for this admission?: Yes Plan: Resolved. (5) Anemia in chronic kidney disease Is this a current diagnosis for this admission?: Yes Plan: Procrit 5000 units IV during dialysis. (6) Noncompliance Is this a current diagnosis for this admission?: Yes (7) Diabetes mellitus type 2 in obese Is this a current diagnosis for this admission?: Yes - Time Critical Time spent with patient: 15-25 minutes
[2018-12-27] MEDS: INSULIN LISPRO 100 UNIT/ML 3 ML VIAL SUBCUT SCH ×4 (13:09→22:01)
[2018-12-27] MEDS: MIDODRINE HCL 5 MG TABLET PO SCH ×3 (13:11→18:01)
[2018-12-27] MEDS: ASPIRIN 81 MG TABLET, CHEWABLE PO SCH (13:12)
--- NOTE | 2018-12-27 15:07 | PDOC PROGRESS REPORT ---
Subjective Progress Note for:: 12/27/18 Subjective:: Patient was seen on the floor, she had hemodialysis today Reason For Visit: HEART FAILURE Physical Exam Vital Signs: Temp Pulse Resp BP Pulse Ox 98.1 F 76 27 H 131/52 H 100 12/27/18 12:00 12/27/18 14:00 12/27/18 14:00 12/27/18 14:00 12/27/18 14:00 Intake & Output 12/26/18 12/27/18 12/28/18 06:59 06:59 06:59 Intake Total 460 236 Output Total 2200 0 1600 Balance -1740 236 -1600 Weight 74.8 kg 71.6 kg General appearance: PRESENT: no acute distress Eye exam: PRESENT: PERRLA Respiratory exam: PRESENT: clear to auscultation debbie Cardiovascular exam: PRESENT: +S1, +S2 GI/Abdominal exam: PRESENT: soft Results Laboratory Results: 12/27/18 03:45 12/27/18 03:45 12/27/18 12/27/18 03:45 03:45 WBC 5.8 RBC 2.67 L Hgb 9.6 L Hct 28.7 L MCV 107 H MCH 35.7 H MCHC 33.3 RDW 16.8 H Plt Count 224 Seg Neutrophils % 75.1 Lymphocytes % 14.3 Monocytes % 9.5 Eosinophils % 0.3 Basophils % 0.8 Absolute Neutrophils 4.3 Absolute Lymphocytes 0.8 Absolute Monocytes 0.5 Absolute Eosinophils 0.0 Absolute Basophils 0.0 Sodium 136.1 L Potassium 4.5 Chloride 97 L Carbon Dioxide 32 H Anion Gap 7 BUN 19 Creatinine 7.27 H Est GFR ( Amer) 7 L Est GFR (Non-Af Amer) 5 L Glucose 109 Calcium 8.8 12/21/18 12/21/18 12/21/18 17:13 17:13 22:06 Creatine Kinase 415 H CK-MB (CK-2) Cancelled 7.62 H Troponin I Cancelled 0.026 12/22/18 12/22/18 12/22/18 04:22 04:22 10:05 Creatine Kinase 382 H CK-MB (CK-2) 7.73 H 6.98 H Troponin I 0.025 0.028 12/22/18 10:22 Creatine Kinase 357 H CK-MB (CK-2) Troponin I Impressions: Chest X-Ray 12/26/18 10:46 IMPRESSION: Appropriate position of central line. No pneumothorax. Assessment & Plan - Diagnosis (1) Acute diastolic (congestive) heart failure Is this a current diagnosis for this admission?: Yes (2) End stage renal disease Is this a current diagnosis for this admission?: Yes (3) T2DM (type 2 diabetes mellitus) Qualifiers: Diabetes mellitus intermediate card tender insulin use: without intermediate card tender use Diabetes mellitus complication status: with kidney complications Diabetes mellitus complication detail: with chronic kidney disease Chronic kidney disease stage: on chronic dialysis Qualified Code(s): E11.22 - Type 2 diabetes mellitus with diabetic chronic kidney disease; N18.6 - End stage renal disease; Z99.2 - Dependence on renal dialysis Is this a current diagnosis for this admission?: Yes (4) Hypotension Qualifiers: Hypotension type: other hypotension type Qualified Code(s): I95.89 - Other hypotension Is this a current diagnosis for this admission?: Yes Plan: Continue dopamine
[2018-12-27] MEDS: DOPAMINE HCL 800 MG/D5W 250 ML IV PRN (18:01)
[2018-12-28] MEDS: HEPARIN SOD (PORCINE) 5,000 UNIT/ML 1 ML SYRINGE SUBCUT SCH ×3 (06:14→21:05)
[2018-12-28] MEDS: LEVOTHYROXINE SODIUM 0.15 MG TABLET PO SCH (06:14)
[2018-12-28] MEDS ORDERED: NA PHOS,M-B/NA PHOS,DI-BA (ADULT) 133 ML ENEMA PR ONE (07:00)
[2018-12-28] MEDS: INSULIN LISPRO 100 UNIT/ML 3 ML VIAL SUBCUT SCH ×4 (08:29→21:12)
[2018-12-28] MEDS: MIDODRINE HCL 5 MG TABLET PO SCH ×3 (09:13→17:10)
[2018-12-28] MEDS: ASPIRIN 81 MG TABLET, CHEWABLE PO SCH (09:13)
[2018-12-28] MEDS: ONDANSETRON HCL INJ/PF 4 MG/2 ML SDV IV PRN (13:16)
[2018-12-28] MEDS: DOPAMINE HCL 800 MG/D5W 250 ML IV PRN (15:56)
--- NOTE | 2018-12-28 19:02 | PDOC PROGRESS REPORT ---
Subjective Progress Note for:: 12/28/18 Subjective:: Patient still requiring dopamine Reason For Visit: HEART FAILURE Physical Exam Vital Signs: Temp Pulse Resp BP Pulse Ox 98.1 F 65 16 110/54 L 100 12/28/18 16:00 12/28/18 16:00 12/28/18 18:01 12/28/18 18:01 12/28/18 18:01 Intake & Output 12/27/18 12/28/18 12/29/18 06:59 06:59 06:59 Intake Total 236 249 192 Output Total 0 1600 Balance 236 -1351 192 Weight 71.6 kg 69.1 kg General appearance: PRESENT: no acute distress Respiratory exam: PRESENT: clear to auscultation debbie Cardiovascular exam: PRESENT: +S1, +S2 GI/Abdominal exam: PRESENT: soft Neurological exam: PRESENT: alert Results Laboratory Results: 12/27/18 03:45 12/27/18 03:45 12/21/18 12/21/18 12/21/18 17:13 17:13 22:06 Creatine Kinase 415 H CK-MB (CK-2) Cancelled 7.62 H Troponin I Cancelled 0.026 12/22/18 12/22/18 12/22/18 04:22 04:22 10:05 Creatine Kinase 382 H CK-MB (CK-2) 7.73 H 6.98 H Troponin I 0.025 0.028 12/22/18 10:22 Creatine Kinase 357 H CK-MB (CK-2) Troponin I Impressions: Chest X-Ray 12/26/18 10:46 IMPRESSION: Appropriate position of central line. No pneumothorax. 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
[2018-12-28] MEDS: ATORVASTATIN CALCIUM 80 MG TABLET PO SCH (21:06)
[2018-12-29 04:39] LABS: HEMOGLOBIN 8.3 g/dL (12.0-15.5); MEAN CORPUSCULAR HEMOGLOBIN 36.1 pg (27.0-33.4); MEAN CORPUSCULAR HGB CONC 33.3 g/dL (32.0-36.0); MEAN CORPUSCULAR VOLUME 109 fl (80-97); PLATELET COUNT 213 10^3/uL (150-450); RED CELL DISTRIBUTION WIDTH 16.7 % (11.5-14.0); WHITE BLOOD COUNT 5.6 10^3/uL (4.0-10.5)
[2018-12-29] MEDS ORDERED: EPOETIN ALFA INJ 20000 UNIT/1 ML VIAL (RENAL) IV PRN (05:00)
[2018-12-29] MEDS ORDERED: NORMAL SALINE 1000 ML 1,000 ML IV PRN (05:00)
[2018-12-29 05:29] LABS: ANION GAP 8 (5-19); BLOOD UREA NITROGEN 23 mg/dL (7-20); CALCIUM 8.8 mg/dL (8.4-10.2); CARBON DIOXIDE 32 mmol/L (22-30); CHLORIDE 99 mmol/L (98-107); GLUCOSE 103 mg/dL (75-110); POTASSIUM 4.4 mmol/L (3.6-5.0); SODIUM 138.8 mmol/L (137-145)
[2018-12-29] MEDS: LEVOTHYROXINE SODIUM 0.15 MG TABLET PO SCH (05:38)
[2018-12-29] MEDS: HEPARIN SOD (PORCINE) 5,000 UNIT/ML 1 ML SYRINGE SUBCUT SCH ×3 (05:39→21:06)
[2018-12-29] MEDS: INSULIN LISPRO 100 UNIT/ML 3 ML VIAL SUBCUT SCH ×4 (05:44→21:07)
[2018-12-29] MEDS ORDERED: EPOETIN ALFA 10,000 UNIT in SYRINGE, DISPOSABLE, 1 EACH IV PRN (07:16)
[2018-12-29] MEDS: DEXTROSE 50%-WATER SYRINGE 12.5 GM/25 ML DOSE IV PRN (08:17)
[2018-12-29] MEDS: ASPIRIN 81 MG TABLET, CHEWABLE PO SCH (10:03)
[2018-12-29] MEDS: MIDODRINE HCL 5 MG TABLET PO SCH ×3 (10:03→17:09)
[2018-12-29] MEDS ORDERED: EPOETIN ALFA INJ 20000 UNIT/1 ML VIAL (RENAL) IV ONE ×2 (14:26→14:34)
[2018-12-29] MEDS: ACETAMINOPHEN 325 MG TABLET PO PRN (14:38)
--- NOTE | 2018-12-29 14:41 | PDOC PROGRESS REPORT ---
Subjective Progress Note for:: 12/29/18 Subjective:: I am seeing the patient during dialysis here in the ICU. So far she is tolerating dialysis well. She has been off dopamine drip and her blood pressures so far holding. She just complained of headache earlier. Otherwise when I asked her she said she is feeling all right. Reason For Visit: HEART FAILURE Physical Exam Vital Signs: Temp Pulse Resp BP Pulse Ox 97.8 F 65 16 144/61 H 100 12/29/18 12:00 12/29/18 12:00 12/29/18 12:00 12/29/18 12:00 12/29/18 12:00 Intake & Output 12/28/18 12/29/18 12/30/18 06:59 06:59 06:59 Intake Total 249 202 50 Output Total 1600 0 Balance -1351 202 50 Weight 69.1 kg 69.6 kg Vitals during dialysis: Blood pressure is 100/49, previously 119/50 heart rate of 65, respiratory rate of 14 with oxygen at 2 L, blood flow rate of 450 mL/min and dialysate flow rate of 800 mL/min. Exam: General appearance: PRESENT: no acute distress, cooperative, well-developed, well-nourished Head exam: PRESENT: atraumatic, normocephalic Eye exam: PRESENT: conjunctiva pale, PERRLA. Legally blind ABSENT: scleral icterus Neck exam: ABSENT: JVD Respiratory exam: PRESENT: Diminished breath sounds. ABSENT: crackles, rales, rhonchi, unlabored, wheezes Cardiovascular exam: PRESENT: Regular rate rhythm -+S1, +S2. ABSENT: diastolic murmur, systolic murmur GI/Abdominal exam: PRESENT: normal bowel sounds, soft. ABSENT: guarding, mass, tenderness Extremities exam: Grade 1 bilateral lower extremity on the lower third of her legs and feet pitting edema Neurological exam: PRESENT: alert, awake, oriented to person, place and time. Very hard of hearing Skin exam: PRESENT: dry, warm, Results Laboratory Results: 12/29/18 04:20 12/29/18 04:20 12/29/18 12/29/18 04:20 04:20 WBC 5.6 RBC 2.30 L Hgb 8.3 L Hct 25.0 L MCV 109 H MCH 36.1 H MCHC 33.3 RDW 16.7 H Plt Count 213 Sodium 138.8 Potassium 4.4 Chloride 99 Carbon Dioxide 32 H Anion Gap 8 BUN 23 H Creatinine 7.20 H Est GFR ( Amer) 7 L Est GFR (Non-Af Amer) 5 L Glucose 103 Calcium 8.8 12/21/18 12/21/18 12/21/18 17:13 17:13 22:06 Creatine Kinase 415 H CK-MB (CK-2) Cancelled 7.62 H Troponin I Cancelled 0.026 12/22/18 12/22/18 12/22/18 04:22 04:22 10:05 Creatine Kinase 382 H CK-MB (CK-2) 7.73 H 6.98 H Troponin I 0.025 0.028 12/22/18 10:22 Creatine Kinase 357 H CK-MB (CK-2) Troponin I Impressions: Chest X-Ray 12/26/18 10:46 IMPRESSION: Appropriate position of central line. No pneumothorax. Assessment & Plan - Diagnosis (1) End stage renal disease on dialysis Is this a current diagnosis for this admission?: Yes Plan: We will do dialysis today for 3 hours, using the patient's AV fistula, with 2 potassium bath, blood flow rate of 450 mL per minute, dialysate flow rate of 800 mL per minute, ultrafiltration 1 to 2 L as tolerated, no heparin and Procrit with 20,000 units during dialysis intravenously. Patient will be monitored and ultrafiltration adjusted according to blood pressure. Dialysis plan discussed with her dialysis nurse. (2) Hypotension Is this a current diagnosis for this admission?: Yes Plan: Currently off dopamine. Continue midodrine. (3) Bilateral lower extremity edema Is this a current diagnosis for this admission?: Yes Plan: Improved. (4) Left leg pain Is this a current diagnosis for this admission?: Yes Plan: Resolved. (5) Anemia in chronic kidney disease Is this a current diagnosis for this admission?: Yes Plan: Procrit 20,000 units IV during dialysis. Hemoglobin is slowly dropping so we will check stool for occult blood. Currently no obvious source of bleeding. (6) Noncompliance Is this a current diagnosis for this admission?: Yes (7) Diabetes mellitus type 2 in obese Is this a current diagnosis for this admission?: Yes - Time Time with patient: 15-25 minutes
[2018-12-29] MEDS ORDERED: EPOETIN ALFA 10,000 UNIT in SYRINGE, DISPOSABLE, 1 EACH IV ONE (15:15)
[2018-12-29] MEDS: DEXTROSE 50%-WATER SYRINGE 25 GM/50 ML DOSE IV PRN ×2 (16:06→17:41)
[2018-12-29] MEDS ORDERED: DEXTROSE 50%-WATER 25 GM/50 ML DISP.SYRIN IV ONE (17:36)
[2018-12-29] MEDS: ONDANSETRON HCL INJ/PF 4 MG/2 ML SDV IV PRN (17:41)
--- NOTE | 2018-12-29 20:54 | PDOC PROGRESS REPORT ---
Subjective Progress Note for:: 12/29/18 Subjective:: Patient seen by the bedside there is no new complaints, presently off dopamine Reason For Visit: HEART FAILURE Physical Exam Vital Signs: Temp Pulse Resp BP Pulse Ox 98.1 F 59 L 15 151/54 H 80 L 12/29/18 19:50 12/29/18 20:44 12/29/18 18:00 12/29/18 17:39 12/29/18 14:21 Intake & Output 12/28/18 12/29/18 12/30/18 06:59 06:59 06:59 Intake Total 249 202 250 Output Total 1600 0 1700 Balance -1351 202 -1450 Weight 69.1 kg 69.6 kg General appearance: PRESENT: no acute distress Eye exam: PRESENT: PERRLA Respiratory exam: PRESENT: clear to auscultation debbie Cardiovascular exam: PRESENT: +S1, +S2 GI/Abdominal exam: PRESENT: soft Neurological exam: PRESENT: alert Results Laboratory Results: 12/29/18 04:20 12/29/18 04:20 12/29/18 12/29/18 04:20 04:20 WBC 5.6 RBC 2.30 L Hgb 8.3 L Hct 25.0 L MCV 109 H MCH 36.1 H MCHC 33.3 RDW 16.7 H Plt Count 213 Sodium 138.8 Potassium 4.4 Chloride 99 Carbon Dioxide 32 H Anion Gap 8 BUN 23 H Creatinine 7.20 H Est GFR ( Amer) 7 L Est GFR (Non-Af Amer) 5 L Glucose 103 Calcium 8.8 12/21/18 12/21/18 12/21/18 17:13 17:13 22:06 Creatine Kinase 415 H CK-MB (CK-2) Cancelled 7.62 H Troponin I Cancelled 0.026 12/22/18 12/22/18 12/22/18 04:22 04:22 10:05 Creatine Kinase 382 H CK-MB (CK-2) 7.73 H 6.98 H Troponin I 0.025 0.028 12/22/18 10:22 Creatine Kinase 357 H CK-MB (CK-2) Troponin I Impressions: Chest X-Ray 12/26/18 10:46 IMPRESSION: Appropriate position of central line. No pneumothorax. Assessment & Plan - Diagnosis (1) Acute diastolic (congestive) heart failure Is this a current diagnosis for this admission?: Yes (2) End stage renal disease Is this a current diagnosis for this admission?: Yes (3) T2DM (type 2 diabetes mellitus) Qualifiers: Diabetes mellitus long term acute care registered nurse insulin use: without fci use Diabetes mellitus complication status: with kidney complications Diabetes mellitus complication detail: with chronic kidney disease Chronic kidney disease stage: on chronic dialysis Qualified Code(s): E11.22 - Type 2 diabetes mellitus with diabetic chronic kidney disease; N18.6 - End stage renal disease; Z99.2 - Dependence on renal dialysis Is this a current diagnosis for this admission?: Yes (4) Hypotension Qualifiers: Hypotension type: other hypotension type Qualified Code(s): I95.89 - Other hypotension Is this a current diagnosis for this admission?: Yes
[2018-12-29] MEDS: ATORVASTATIN CALCIUM 80 MG TABLET PO SCH (21:07)
[2018-12-30] MEDS: DEXTROSE 50%-WATER SYRINGE 25 GM/50 ML DOSE IV PRN (01:33)
[2018-12-30] MEDS: HEPARIN SOD (PORCINE) 5,000 UNIT/ML 1 ML SYRINGE SUBCUT SCH ×3 (06:35→22:28)
[2018-12-30] MEDS: LEVOTHYROXINE SODIUM 0.15 MG TABLET PO SCH (06:35)
[2018-12-30] MEDS: DEXTROSE 50%-WATER SYRINGE 12.5 GM/25 ML DOSE IV PRN (06:38)
[2018-12-30] MEDS: INSULIN LISPRO 100 UNIT/ML 3 ML VIAL SUBCUT SCH ×4 (07:50→22:02)
[2018-12-30] MEDS: MIDODRINE HCL 5 MG TABLET PO SCH ×3 (10:11→17:11)
[2018-12-30] MEDS: ASPIRIN 81 MG TABLET, CHEWABLE PO SCH (10:11)
--- NOTE | 2018-12-30 12:02 | PDOC PROGRESS REPORT ---
Subjective Progress Note for:: 12/30/18 Subjective:: Patient is currently blind and deaf Patient was admitted because of the fluid overload currently on the dialysis Patient is currently on a dopamine drips was current off Denied any chest pain to than any shortness of the breath Reason For Visit: HEART FAILURE Physical Exam Vital Signs: Temp Pulse Resp BP Pulse Ox 98.2 F 63 17 123/51 L 100 12/30/18 04:00 12/30/18 07:48 12/30/18 11:00 12/30/18 10:37 12/30/18 11:00 Intake & Output 12/29/18 12/30/18 12/31/18 06:59 06:59 06:59 Intake Total 202 250 60 Output Total 0 1700 Balance 202 -1450 60 Weight 69.6 kg 68.8 kg General appearance: PRESENT: no acute distress Head exam: PRESENT: atraumatic, normocephalic Eye exam: PRESENT: conjunctiva pink, EOMI, PERRLA. ABSENT: scleral icterus Ear exam: PRESENT: normal external ear exam Mouth exam: PRESENT: moist, tongue midline Neck exam: PRESENT: full ROM. ABSENT: carotid bruit, JVD, lymphadenopathy, thyromegaly Cardiovascular exam: PRESENT: RRR. ABSENT: diastolic murmur, rubs, systolic murmur Vascular exam: PRESENT: normal capillary refill GI/Abdominal exam: PRESENT: normal bowel sounds, soft. ABSENT: distended, guarding, mass, organolmegaly, rebound, tenderness Rectal exam: PRESENT: deferred Neurological exam: PRESENT: alert, awake, oriented to person, oriented to place, oriented to time, oriented to situation, CN II-XII grossly intact. ABSENT: motor sensory deficit Psychiatric exam: PRESENT: appropriate affect, normal mood. ABSENT: homicidal ideation, suicidal ideation Skin exam: PRESENT: dry, intact, warm. ABSENT: cyanosis, rash Results Laboratory Results: 12/29/18 04:20 12/29/18 04:20 12/29/18 22:47 Stool Occult Blood NEGATIVE 12/21/18 12/21/18 12/21/18 17:13 17:13 22:06 Creatine Kinase 415 H CK-MB (CK-2) Cancelled 7.62 H Troponin I Cancelled 0.026 12/22/18 12/22/18 12/22/18 04:22 04:22 10:05 Creatine Kinase 382 H CK-MB (CK-2) 7.73 H 6.98 H Troponin I 0.025 0.028 12/22/18 10:22 Creatine Kinase 357 H CK-MB (CK-2) Troponin I Impressions: Chest X-Ray 12/26/18 10:46 IMPRESSION: Appropriate position of central line. No pneumothorax. Assessment & Plan - Diagnosis (1) End stage renal disease on dialysis Is this a current diagnosis for this admission?: Yes (2) Hypotension Is this a current diagnosis for this admission?: Yes (3) Anemia in chronic kidney disease Is this a current diagnosis for this admission?: Yes (4) Chronic diastolic (congestive) heart failure Is this a current diagnosis for this admission?: Yes (5) Diabetes mellitus type 2 in obese Is this a current diagnosis for this admission?: Yes - Time Time Spent with patient: 15-24 minutes Medications reviewed and adjusted accordingly: Yes Anticipated discharge: Other Within: Other - Inpatient Certification Based on my medical assessment, after consideration of the patient's comorbidities, presenting symptoms, or acuity I expect that the services needed warrant INPATIENT care.: Yes I certify that my determination is in accordance with my understanding of Medicare's requirements for reasonable and necessary INPATIENT services [42 CFR 412.3e].: Yes Medical Necessity: Significant Comorbidiites Make Outpatient Treatment Too Risky, Need Close Monitoring Due to Risk of Patient Decompensation Post Hospital Care: D/C Underground [employer]man Documentation - Plan Summary Plan Summary: Continues to current medication
[2018-12-30] MEDS: ATORVASTATIN CALCIUM 80 MG TABLET PO SCH (22:26)
[2018-12-31] MEDS: HEPARIN SOD (PORCINE) 5,000 UNIT/ML 1 ML SYRINGE SUBCUT SCH ×3 (06:37→21:57)
[2018-12-31] MEDS: LEVOTHYROXINE SODIUM 0.15 MG TABLET PO SCH (06:40)
[2018-12-31] MEDS: INSULIN LISPRO 100 UNIT/ML 3 ML VIAL SUBCUT SCH ×4 (08:28→21:58)
[2018-12-31] MEDS: ASPIRIN 81 MG TABLET, CHEWABLE PO SCH (09:10)
[2018-12-31] MEDS: MIDODRINE HCL 5 MG TABLET PO SCH ×3 (09:10→18:01)
--- NOTE | 2018-12-31 10:59 | PDOC PROGRESS REPORT ---
Subjective Progress Note for:: 12/31/18 Subjective:: Patient is currently blind and deaf Patient was admitted because of the fluid overload currently on the dialysis Patient is currently on a dopamine drips was current off Denied any chest pain to than any shortness of the breath Reason For Visit: HEART FAILURE Physical Exam Vital Signs: Temp Pulse Resp BP Pulse Ox 98.0 F 64 20 116/51 L 99 12/31/18 07:23 12/31/18 07:23 12/31/18 07:23 12/31/18 07:23 12/31/18 07:23 Intake & Output 12/30/18 12/31/18 01/01/19 06:59 06:59 06:59 Intake Total 250 500 Output Total 1700 0 Balance -1450 500 Weight 68.8 kg 69.2 kg General appearance: PRESENT: no acute distress Head exam: PRESENT: atraumatic, normocephalic Eye exam: PRESENT: conjunctiva pink, EOMI, PERRLA. ABSENT: scleral icterus Ear exam: PRESENT: normal external ear exam Mouth exam: PRESENT: moist, tongue midline Neck exam: PRESENT: full ROM. ABSENT: carotid bruit, JVD, lymphadenopathy, thyromegaly Respiratory exam: PRESENT: clear to auscultation debbie Cardiovascular exam: PRESENT: RRR. ABSENT: diastolic murmur, rubs, systolic murmur Pulses: PRESENT: normal dorsalis pedis pul, +2 pedal pulses bilateral Vascular exam: PRESENT: normal capillary refill GI/Abdominal exam: PRESENT: normal bowel sounds, soft. ABSENT: distended, guarding, mass, organolmegaly, rebound, tenderness Rectal exam: PRESENT: deferred Neurological exam: PRESENT: alert, awake, oriented to person. ABSENT: motor sensory deficit Psychiatric exam: PRESENT: appropriate affect, normal mood. ABSENT: homicidal ideation, suicidal ideation Skin exam: PRESENT: dry, intact, warm. ABSENT: cyanosis, rash Results Laboratory Results: 12/29/18 04:20 12/29/18 04:20 12/21/18 12/21/18 12/21/18 17:13 17:13 22:06 Creatine Kinase 415 H CK-MB (CK-2) Cancelled 7.62 H Troponin I Cancelled 0.026 12/22/18 12/22/18 12/22/18 04:22 04:22 10:05 Creatine Kinase 382 H CK-MB (CK-2) 7.73 H 6.98 H Troponin I 0.025 0.028 12/22/18 10:22 Creatine Kinase 357 H CK-MB (CK-2) Troponin I Impressions: Chest X-Ray 12/26/18 10:46 IMPRESSION: Appropriate position of central line. No pneumothorax. Assessment & Plan - Diagnosis (1) End stage renal disease on dialysis Is this a current diagnosis for this admission?: Yes (2) Hypotension Is this a current diagnosis for this admission?: Yes (3) Anemia in chronic kidney disease Is this a current diagnosis for this admission?: Yes (4) Chronic diastolic (congestive) heart failure Is this a current diagnosis for this admission?: Yes (5) Diabetes mellitus type 2 in obese Is this a current diagnosis for this admission?: Yes - Time Time Spent with patient: 15-24 minutes Medications reviewed and adjusted accordingly: Yes Anticipated discharge: SNF Within: Other - Plan Summary Plan Summary: Continues to current medication
[2018-12-31] MEDS: ATORVASTATIN CALCIUM 80 MG TABLET PO SCH (21:59)
[2019-01-01] MEDS ORDERED: NORMAL SALINE 1000 ML 1,000 ML IV PRN (05:00)
[2019-01-01] MEDS ORDERED: EPOETIN ALFA INJ 20000 UNIT/1 ML VIAL (RENAL) IV PRN (05:00)
[2019-01-01] MEDS: HEPARIN SOD (PORCINE) 5,000 UNIT/ML 1 ML SYRINGE SUBCUT SCH ×3 (06:29→21:47)
[2019-01-01] MEDS: LEVOTHYROXINE SODIUM 0.15 MG TABLET PO SCH (06:29)
[2019-01-01 08:05] LABS: HEMATOCRIT 21.7 % (36.0-47.0); MEAN CORPUSCULAR HEMOGLOBIN 35.9 pg (27.0-33.4); MEAN CORPUSCULAR HGB CONC 32.6 g/dL (32.0-36.0); MEAN CORPUSCULAR VOLUME 110 fl (80-97); PLATELET COUNT 204 10^3/uL (150-450); RED BLOOD COUNT 1.97 10^6/uL (3.72-5.28); WHITE BLOOD COUNT 6.5 10^3/uL (4.0-10.5)
[2019-01-01 08:32] LABS: ANION GAP 5 (5-19); BLOOD UREA NITROGEN 34 mg/dL (7-20); CALCIUM 9.1 mg/dL (8.4-10.2); CARBON DIOXIDE 33 mmol/L (22-30); CHLORIDE 98 mmol/L (98-107); GLUCOSE 124 mg/dL (75-110); POTASSIUM 4.1 mmol/L (3.6-5.0); SODIUM 136.1 mmol/L (137-145)
[2019-01-01 09:04] LABS: HEMOGLOBIN 7.1 g/dL (12.0-15.5)
[2019-01-01] MEDS: INSULIN LISPRO 100 UNIT/ML 3 ML VIAL SUBCUT SCH ×4 (09:05→21:46)
[2019-01-01] MEDS: MIDODRINE HCL 5 MG TABLET PO SCH ×2 (10:20→13:25)
[2019-01-01] MEDS: ASPIRIN 81 MG TABLET, CHEWABLE PO SCH (13:25)
--- NOTE | 2019-01-01 14:07 | PDOC PROGRESS REPORT ---
Subjective Progress Note for:: 01/01/19 Reason For Visit: Patient seen this morning on dialysis. She is undergoing dialysis but be having difficulty to draw any fluids because she is getting hypotensive. She is currently only on Midodrin and and off all pressor agents. Unfortunately she has not gotten her Midodrin this morning and is scheduled to have it given at 10 AM. Patient denies any history of headaches presyncope, chest pain or shortness of breath. She is otherwise comfortable and undergoing dialysis without any complaints. Vital signs as long as you are not removing any fluids are stable. Labs and medications were reviewed with the patient and the treating dialysis nurse. Dialysis orders were reviewed with the treating dialysis nurse. Physical Exam Vital Signs: Temp Pulse Resp BP Pulse Ox 97.7 F 51 L 18 140/59 H 100 01/01/19 03:09 01/01/19 07:00 01/01/19 03:09 01/01/19 03:09 01/01/19 03:09 Intake & Output 12/31/18 01/01/19 01/02/19 06:59 06:59 06:59 Intake Total 500 580 Output Total 0 0 1000 Balance 500 580 -1000 Weight 69.2 kg 70.1 kg General appearance: PRESENT: no acute distress Respiratory exam: PRESENT: clear to auscultation debbie, decreased breath sounds. ABSENT: crackles Cardiovascular exam: PRESENT: +S1, +S2 GI/Abdominal exam: PRESENT: normal bowel sounds, soft. ABSENT: organomegaly, tenderness Extremities exam: ABSENT: pedal edema Neurological exam: PRESENT: alert, awake, oriented to person, oriented to place. ABSENT: oriented to time Psychiatric exam: PRESENT: anxious Skin exam: ABSENT: erythema, mottled, rash Results Laboratory Results: 01/01/19 07:45 01/01/19 07:45 01/01/19 01/01/19 07:45 07:45 WBC 6.5 RBC 1.97 L Hgb 7.1 L Hct 21.7 L MCV 110 H MCH 35.9 H MCHC 32.6 RDW 17.0 H Plt Count 204 Sodium 136.1 L Potassium 4.1 Chloride 98 Carbon Dioxide 33 H Anion Gap 5 BUN 34 H Creatinine 8.10 H Est GFR ( Amer) 6 L Est GFR (Non-Af Amer) 5 L Glucose 124 H Calcium 9.1 0612/21/18 12/21/18 17:13 17:13 22:06 Creatine Kinase 415 H CK-MB (CK-2) Cancelled 7.62 H Troponin I Cancelled 0.026 12/22/18 12/22/18 12/22/18 04:22 04:22 10:05 Creatine Kinase 382 H CK-MB (CK-2) 7.73 H 6.98 H Troponin I 0.025 0.028 12/22/18 10:22 Creatine Kinase 357 H CK-MB (CK-2) Troponin I Impressions: Chest X-Ray 12/26/18 10:46 IMPRESSION: Appropriate position of central line. No pneumothorax. Assessment & Plan - Diagnosis (1) Acute diastolic (congestive) heart failure Is this a current diagnosis for this admission?: Yes Plan: Patient presents with signs and symptoms of congestive heart failure. Echoc ardiogram shows that she has got heart failure with preserved ejection fraction. Right ventricular function is also normal. She has had a history of poor compliance on dialysis without removal of adequate fluid which has probably led to his her current current status. She is also been hypotensive off all medications. She is on Midodrin at the moment. She is currently stable and I believe we have pulled her relatively dry as she becomes hypotensive now when we try to ultrafiltrate. (2) Diabetes mellitus type 2 in obese Is this a current diagnosis for this admission?: Yes Plan: Advised tight control. (3) End stage renal disease on dialysis Is this a current diagnosis for this admission?: Yes Plan: Currently undergoing dialysis. Patient becomes hypotensive when he tried to remove fluids. She is also not gotten her Midodrin which is also preventing any form of ultrafiltration. Will order the Midodrin now and try removing fluid. Besides that the fact there is a low hemoglobin of 7. She needs to be transfused as hypoxia can be another reason for myocardial issues. (4) Hypotension Is this a current diagnosis for this admission?: Yes Plan: Continue on with Midodrin. No signs of sepsis. (5) Noncompliance Is this a current diagnosis for this admission?: Yes Plan: Discuss about staying on a full treatments and to help us remove all the fluid she comes in with. (6) Anemia in chronic kidney disease Is this a current diagnosis for this admission?: Yes Plan: Continue on erythropoietin. However hemoglobin is significantly low at 7 and I do not see it going up as we are unable to ultrafiltrate. Therefore will order 1 unit of blood transfusion. Plan for giving her at least 1 unit if we are able to ultrafiltrate enough of fluid for that.
--- NOTE | 2019-01-01 21:08 | PDOC PROGRESS REPORT ---
Subjective Progress Note for:: 01/01/19 Subjective:: Patient seen by the bedside, no new complaints Reason For Visit: HEART FAILURE Physical Exam Vital Signs: Temp Pulse Resp BP Pulse Ox 98.0 F 60 20 140/48 H 100 01/01/19 20:00 01/01/19 20:00 01/01/19 20:00 01/01/19 20:00 01/01/19 20:00 Intake & Output 12/31/18 01/01/19 01/02/19 06:59 06:59 06:59 Intake Total 500 580 660 Output Total 0 0 1000 Balance 500 580 -340 Weight 69.2 kg 70.1 kg General appearance: PRESENT: no acute distress Eye exam: PRESENT: PERRLA Respiratory exam: PRESENT: clear to auscultation debbie Cardiovascular exam: PRESENT: +S1, +S2 GI/Abdominal exam: PRESENT: soft Neurological exam: PRESENT: alert Results Laboratory Results: 01/01/19 07:45 01/01/19 07:45 01/01/19 01/01/19 01/01/19 07:45 07:45 14:45 WBC 6.5 RBC 1.97 L Hgb 7.1 L Hct 21.7 L MCV 110 H MCH 35.9 H MCHC 32.6 RDW 17.0 H Plt Count 204 Sodium 136.1 L Potassium 4.1 Chloride 98 Carbon Dioxide 33 H Anion Gap 5 BUN 34 H Creatinine 8.10 H Est GFR ( Amer) 6 L Est GFR (Non-Af Amer) 5 L Glucose 124 H Calcium 9.1 Blood Type O POSITIVE Antibody Screen NEGATIVE 12/21/18 12/21/18 12/21/18 17:13 17:13 22:06 Creatine Kinase 415 H CK-MB (CK-2) Cancelled 7.62 H Troponin I Cancelled 0.026 12/22/18 12/22/18 12/22/18 04:22 04:22 10:05 Creatine Kinase 382 H CK-MB (CK-2) 7.73 H 6.98 H Troponin I 0.025 0.028 12/22/18 10:22 Creatine Kinase 357 H CK-MB (CK-2) Troponin I Impressions: Chest X-Ray 12/26/18 10:46 IMPRESSION: Appropriate position of central line. No pneumothorax. Assessment & Plan - Diagnosis (1) Acute diastolic (congestive) heart failure Is this a current diagnosis for this admission?: Yes (2) End stage renal disease Is this a current diagnosis for this admission?: Yes (3) T2DM (type 2 diabetes mellitus) Qualifiers: Diabetes mellitus manager intermediate insulin use: without shelter use Diabetes mellitus complication status: with kidney complications Diabetes mellitus complication detail: with chronic kidney disease Chronic kidney disease stage: on chronic dialysis Qualified Code(s): E11.22 - Type 2 diabetes mellitus with diabetic chronic kidney disease; N18.6 - End stage renal disease; Z99.2 - Dependence on renal dialysis Is this a current diagnosis for this admission?: Yes (4) Hypotension Qualifiers: Hypotension type: other hypotension type Qualified Code(s): I95.89 - Other hypotension Is this a current diagnosis for this admission?: Yes
[2019-01-01] MEDS: ATORVASTATIN CALCIUM 80 MG TABLET PO SCH (21:46)
[2019-01-02] MEDS: LEVOTHYROXINE SODIUM 0.15 MG TABLET PO SCH (05:25)
[2019-01-02] MEDS: HEPARIN SOD (PORCINE) 5,000 UNIT/ML 1 ML SYRINGE SUBCUT SCH ×2 (05:25→14:23)
[2019-01-02] MEDS: MIDODRINE HCL 5 MG TABLET PO SCH ×3 (05:25→14:25)
[2019-01-02 06:06] LABS: ABSOLUTE BASOPHILS # (AUTO) 0.1 10^3/uL (0.0-0.2); ABSOLUTE EOSINOPHILS # (AUTO) 0.1 10^3/uL (0.0-0.6); ABSOLUTE LYMPHOCYTES (AUTO) 1.4 10^3/uL (0.5-4.7); ABSOLUTE MONOCYTES (AUTO) 0.8 10^3/uL (0.1-1.4); ABSOLUTE NEUT (AUTO) 5.5 10^3/uL (1.7-8.2); BASOPHILS % (AUTO) 1.2 % (0-2); EOSINOPHILS % (AUTO) 1.5 % (0-6); HEMATOCRIT 26.2 % (36.0-47.0); HEMOGLOBIN 8.8 g/dL (12.0-15.5); LYMPHOCYTES % (AUTO) 17.6 % (13-45); MEAN CORPUSCULAR HEMOGLOBIN 35.8 pg (27.0-33.4); MEAN CORPUSCULAR HGB CONC 33.6 g/dL (32.0-36.0); MEAN CORPUSCULAR VOLUME 107 fl (80-97); MONOCYTES % (AUTO) 10.4 % (3-13); PLATELET COUNT 218 10^3/uL (150-450); RED BLOOD COUNT 2.45 10^6/uL (3.72-5.28); RED CELL DISTRIBUTION WIDTH 19.1 % (11.5-14.0); SEGMENTED NEUTROPHILS % (AUTO) 69.3 % (42-78); TOTAL CELLS COUNTED % (AUTO) 100 %
[2019-01-02 06:24] LABS: ANION GAP 5 (5-19); BLOOD UREA NITROGEN 19 mg/dL (7-20); CARBON DIOXIDE 33 mmol/L (22-30); CHLORIDE 99 mmol/L (98-107); GLUCOSE 108 mg/dL (75-110); SODIUM 136.8 mmol/L (137-145)
[2019-01-02] MEDS: INSULIN LISPRO 100 UNIT/ML 3 ML VIAL SUBCUT SCH ×3 (09:00→17:25)
[2019-01-02] MEDS: ASPIRIN 81 MG TABLET, CHEWABLE PO SCH (10:17)
--- NOTE | 2019-01-02 16:47 | PDOC DISCHARGE SUMMARY ---
General - Admit/Disc Date/PCP Admission Date/Primary Care Provider: 12/21/18 18:53 JOSE MANUEL MIX MD Discharge Date: 01/02/19 - Discharge Diagnosis (1) Acute diastolic (congestive) heart failure Is this a current diagnosis for this admission?: Yes (2) End stage renal disease Is this a current diagnosis for this admission?: Yes (3) T2DM (type 2 diabetes mellitus) Is this a current diagnosis for this admission?: Yes (4) Hypotension Is this a current diagnosis for this admission?: Yes - Additional Information Resuscitation Status: Full Code Discharge Diet: Cardiac, Diabetic Discharge Activity: Activity As Tolerated, Balance Activity w/Rest Prescriptions: Midodrine HCl [Proamatine 5 mg Tablet] 10 mg PO 0600,1000,1400 #90 tablet Home Medications: Amlodipine Besylate [Norvasc 10 mg Tablet] 10 mg PO DAILY 12/22/18 Aspirin [Micheal Chewable Aspirin] 81 mg PO DAILY 12/22/18 Atorvastatin Calcium [Lipitor 80 mg Tablet] 80 mg PO DAILY 12/22/18 Clonidine HCl [Catapres 0.2 mg Tablet] 0.2 mg PO Q12 12/22/18 Levothyroxine Sodium 150 mcg PO Q6AM 12/22/18 Midodrine HCl [Proamatine 5 mg Tablet] 10 mg PO 0600,1000,1400 #90 tablet 12/10 11/26 History of Present Illness History of Present Illness: LOVELY ESPAÑA is a 78 year old female, she is well-known to me, she has a history of end-stage renal disease on hemodialysis she came to the office with her daughter because of bilateral lower extremity swelling she was volume overloaded, I was concerned about CHF but she is on hemodialysis chronically, I was going to admit her directly into the hospital from the office but I was not sure if we have a dialysis bed so I advised that to go to the emergency room for evaluation. In the ER she was evaluated apparently she was in the emergency room a day before this present visit. She is a very poor historian she is not very coherent but it seems that she does not always finish her dialysis session and that could also be a factor in the volume problem that she is experiencing. She was admitted into the hospital for further evaluation. A 2D echo was done, it demonstrated normal ejection fraction of left ventricle, the Doppler measurement demonstrated pseudonormalization consistent with grade 2 diastolic dysfunction of left ventricle Hospital Course Hospital Course: Patient was admitted for the management of acute diastolic heart failure with the background of end-stage renal disease on maintenance hemodialysis. She was treated with hemodialysis, she was seen by the clinical research spec, she had episode of hypotension that requires vasopressor with intravenous dopamine.Patient is legally blind, very hard of hearing.During the hospital stay she has expressed desire not to be resuscitated but ultimately she wanted CPR and life support if neededPatient overall prognosis is very poor, palliative care needed to be an option of care in this patient.She had prolonged hypotension in the hospital that required ICU care, my understanding was that patient has had this episode of fluctuation in blood pressure outpatient Physical Exam Vital Signs: Temp Pulse Resp BP Pulse Ox 98.1 F 66 16 129/49 H 94 01/02/19 08:04 01/02/19 14:00 01/02/19 08:04 01/02/19 08:04 01/02/19 08:04 Intake & Output 01/01/19 01/02/19 01/03/19 06:59 06:59 06:59 Intake Total 580 990 Output Total 0 1000 Balance 580 -10 Weight 70.1 kg 72.3 kg General appearance: PRESENT: no acute distress Eye exam: PRESENT: PERRLA Respiratory exam: PRESENT: clear to auscultation debbie Cardiovascular exam: PRESENT: +S1, +S2 GI/Abdominal exam: PRESENT: soft Neurological exam: PRESENT: alert Results Laboratory Results: 01/02/19 05:17 01/02/19 05:17 01/01/19 01/02/19 01/02/19 14:45 05:17 05:17 WBC 8.0 RBC 2.45 L Hgb 8.8 L Hct 26.2 L MCV 107 H MCH 35.8 H MCHC 33.6 RDW 19.1 H Plt Count 218 Seg Neutrophils % 69.3 Lymphocytes % 17.6 Monocytes % 10.4 Eosinophils % 1.5 Basophils % 1.2 Absolute Neutrophils 5.5 Absolute Lymphocytes 1.4 Absolute Monocytes 0.8 Absolute Eosinophils 0.1 Absolute Basophils 0.1 Sodium 136.8 L Potassium 4.0 Chloride 99 Carbon Dioxide 33 H Anion Gap 5 BUN 19 Creatinine 4.89 H Est GFR ( Amer) 10 L Est GFR (Non-Af Amer) 9 L Glucose 108 Calcium 9.0 Blood Type O POSITIVE Antibody Screen NEGATIVE 12/21/18 12/21/18 12/21/18 17:13 17:13 22:06 Creatine Kinase 415 H CK-MB (CK-2) Cancelled 7.62 H Troponin I Cancelled 0.026 12/22/18 12/22/18 12/22/18 04:22 04:22 10:05 Creatine Kinase 382 H CK-MB (CK-2) 7.73 H 6.98 H Troponin I 0.025 0.028 12/22/18 10:22 Creatine Kinase 357 H CK-MB (CK-2) Troponin I Impressions: Chest X-Ray 12/26/18 10:46 IMPRESSION: Appropriate position of central line. No pneumothorax. Qualifiers - * PATIENT BEING DISCHARGED WITH ANY OF THE FOLLOWING DIAGNOSIS: No VTE patient discharged on overlapping Therapy?: No Reason(s) for not prescribing Overlap Therapy:: Not indicated Stroke Pt being discharged on Anti-thrombolytic therapy?: No Reason(s) for not prescribing Anti-thrombolytic therapy:: Not indicated Stroke Pt being discharged on Anti-coagulation therapy?: No Reason(s) for not prescribing Anti-coagulation therapy:: Not indicated Stroke Pt being discharged on Statins?: No Reason(s) for not prescribing Statins therapy:: Not indicated HI Pt being discharged on Aspirin therapy?: No Reason(s) for not prescribing Aspirin therapy:: Not indicated HI Pt being discharged on Statins?: No Reason(s) for not prescribing Statin therapy:: Not indicated HI Pt discharged ACEI/ARBS?: No Reason(s) for not prescribing ACEI/ARBS:: Not indicated Acute Heart Failure - Is this a Heart Failure Patient?: Yes Documentation of LVEF assessment?: Yes LVEF < 40%?: No- if no continue to question #3 3. Anticoagulant therapy for permanect/persistent/paraoxysmal Afib or Aflutter: N/A
[2019-01-02 18:20] VITALS: BP 147/52
== END 2019-01-02 20:40 | disposition home or self-care (01) | DRG 291 ==
LOC: ER 13:27 → EH 18:53 → 3W 21:30 → ICU 12-26 18:57 → 3S 12-30 16:17
PROVIDERS: ADMIT Internal Medicine; ATTEND Internal Medicine
PROC: 5A1D70Z Performance of Urinary Filtration, Intermittent, Less than 6 Hours Per Day (ICD-10-PCS; 2018-12-22)
PROC: 02HV33Z Insertion of Infusion Device into Superior Vena Cava, Percutaneous Approach (ICD-10-PCS; principal; 2018-12-26)
PROC: 30233N1 Transfusion of Nonautologous Red Blood Cells into Peripheral Vein, Percutaneous Approach (ICD-10-PCS; 2019-01-01)
DX: I13.2 Hypertensive heart and chronic kidney disease with heart failure and with stage 5 chronic kidney disease, or end stage renal disease (principal); N18.6 End stage renal disease; I50.31 Acute diastolic (congestive) heart failure; H54.7 Unspecified visual loss; H91.90 Unspecified hearing loss, unspecified ear; E78.5 Hyperlipidemia, unspecified; E03.9 Hypothyroidism, unspecified; E11.22 Type 2 diabetes mellitus with diabetic chronic kidney disease; Z99.2 Dependence on renal dialysis; M19.90 Unspecified osteoarthritis, unspecified site; Z91.048 Other nonmedicinal substance allergy status; D63.1 Anemia in chronic kidney disease; Z91.15 Patient's noncompliance with renal dialysis; E66.9 Obesity, unspecified; I95.9 Hypotension, unspecified
CPT/HCPCS: 36415; 36430; 71045; 80048; 80053; 80061; 80076; 82272; 82550; 82553; 82962; 83036; 83690; 83735; 83880; 84439; 84443; 84484; 85025; 85027; 85610; 85730; 86850; 86900; 86901; 86920; 93005; 93010; 93306; 93971; 99285; C1751; J1265; J1642; J1644; J1815; J2405; J3490; P9016; Q4081

== ENCOUNTER 2019-01-17 05:36 | Inpatient (IN) | payer MEDICARE ==
[2019-01-17 06:53] LABS: VENOUS BLOOD HCO3 24.2 mmol/L (20-32); VENOUS BLOOD PH 7.29 (7.30-7.42)
[2019-01-17 06:59] LABS: HEMATOCRIT 33.8 % (36.0-47.0); MEAN CORPUSCULAR HGB CONC 32.5 g/dL (32.0-36.0); MEAN CORPUSCULAR VOLUME 105 fl (80-97); PLATELET COUNT 406 10^3/uL (150-450); RED BLOOD COUNT 3.23 10^6/uL (3.72-5.28); WHITE BLOOD COUNT 5.1 10^3/uL (4.0-10.5)
[2019-01-17 07:08] LABS: ALANINE AMINOTRANSFERASE 21 U/L (9-52); ALBUMIN 3.7 g/dL (3.5-5.0); ALKALINE PHOSPHATASE 83 U/L (38-126); ANION GAP 17 (5-19); ASPARTATE AMINO TRANSFERASE 28 U/L (14-36); BILIRUBIN,DIRECT 0.6 mg/dL (0.0-0.4); BILIRUBIN,TOTAL 0.6 mg/dL (0.2-1.3); BLOOD UREA NITROGEN 91 mg/dL (7-20); CALCIUM 8.2 mg/dL (8.4-10.2); CARBON DIOXIDE 22 mmol/L (22-30); CHLORIDE 103 mmol/L (98-107); GLUCOSE 74 mg/dL (75-110); SODIUM 141.5 mmol/L (137-145); TOTAL PROTEIN 6.8 g/dL (6.3-8.2)
[2019-01-17 07:19] LABS: ABSOLUTE MONOCYTES # (MANUAL) 0.2 10^3/uL (0.1-1.4); BAND NEUTROPHILS % (MANUAL) 1 % (3-5); BASOPHILS % (MANUAL) 1 % (0-2); EOSINOPHILS % (MANUAL) 1 % (0-6); LYMPHOCYTES % (MANUAL) 19 % (13-45); MONOCYTES % (MANUAL) 4 % (3-13); SEGMENTED NEUTROPHILS % (MAN) 74 % (42-78); TOTAL CELLS COUNTED 100
[2019-01-17 07:20] LABS: ANISOCYTOSIS 1+; BURR CELLS 1+; OVALOCYTES 1+; PLATELET COMMENT ADEQUATE; POIKILOCYTOSIS 1+; SCHISTOCYTES SLIGHT
[2019-01-17 07:26] LABS: POTASSIUM 6.4 mmol/L (3.6-5.0)
[2019-01-17] MEDS ORDERED: CALCIUM GLUCONATE 1000 MG/10 ML INJ IV ONE (07:32)
[2019-01-17] MEDS ORDERED: DEXTROSE 50%-WATER 25 GM/50 ML DISP.SYRIN IV ONE (07:32)
[2019-01-17] MEDS ORDERED: INSULIN REG, HUMAN 100 UNIT/ML 3 ML VIAL (PYX) IV ONE (07:32)
--- NOTE | 2019-01-17 07:32 | ER Document Report ---
ED General - General Chief Complaint: General Weakness Stated Complaint: WEAKNESS Time Seen by Provider: 01/17/19 06:04 Mode of Arrival: Medic Information source: Patient, Emergency Med Personnel, [facility] Records Notes: 78-year-old female with congestive heart failure, hypertension, hyperlipidemia, type 2 diabetes, end-stage renal disease who undergoes dialysis Tuesday presents via EMS from home with complaints of weakness and "I need to get the fluid off of my legs". Patient states that she has not been to dialysis for over 2 weeks do to transportation issues and feeling weak. She denies any fever, chills, nausea, vomiting, shortness of breath, abdominal pain. Patient's investment banking analyst is Dr. Mendez and patient's primary care physician is Dr. Adame. TRAVEL OUTSIDE OF THE [place] IN LAST 30 DAYS: No - HPI Onset: Other Onset/Duration: Gradual, Persistent Quality of pain: No pain Severity: None Pain Level: Denies Associated symptoms: Leg swelling, Weakness. denies: Chest pain, Chills, Nonproductive cough, Productive cough, Fever, Nausea, Vomiting, Shortness of breath Exacerbated by: Denies Relieved by: Denies Similar symptoms previously: Yes Recently seen / treated by doctor: No - Related Data Allergies/Adverse Reactions: adhesive tape Allergy (Intermediate, Verified 01/17/19 07:40) Generalized rash No Known Drug Allergies Allergy (Verified 01/17/19 07:40) Past Medical History - General Information source: Patient - Social History Smoking Status: Never Smoker Chew tobacco use (# tins/day): No Frequency of alcohol use: None Drug Abuse: None Lives with: Family Family History: CAD, Hypertension, Other - Kidney disease Patient has suicidal ideation: No Patient has homicidal ideation: No - Past Medical History Cardiac Medical History: Reports: Hx Heart Attack - 2017; POSSIBLE CARDIAC STENT PLACEMENT "TO KEEP THE VALVE OPEN", Hx Hypercholesterolemia, Hx Hypertension - HX. OF, CURRENTLY OFF HER HTN MEDS DUE TO LOW BP Denies: Hx Coronary Artery Disease Pulmonary Medical History: Reports: Hx Pneumonia - NOVEMBER 2017 Denies: Hx Asthma, Hx Bronchitis, Hx COPD, Hx Tuberculosis Neurological Medical History: Reports: Hx Cerebrovascular Accident - JUNE 2010, DENIES DEFICITS. Denies: Hx Seizures Endocrine Medical History: Reports: Hx Diabetes Mellitus Type 2, Hx Hypothyroidism Renal/ Medical History: Reports: Hx End Stage Renal Disease, Hx Peritoneal Dialysis Musculoskeletal Medical History: Reports Hx Arthritis Past Surgical History: Reports: Hx Cardiac Catheterization - Possible cardiac catheterization with stent placement. Records are pending, Hx Cholecystectomy. Denies: Hx Pacemaker - Immunizations Hx Diphtheria, Pertussis, Tetanus Vaccination: Yes - PATIENT UNSURE Hx Pneumococcal Vaccination: 04/19/12 Review of Systems - Review of Systems Notes: REVIEW OF SYSTEMS: CONSTITUTIONAL : Denies fever, chills, or sweats. Denies recent illness. Denies weight loss, recent hospitalizations. EENT: Denies visual changes, eye pain. Denies sore throat, oral lesions, difficulty swallowing. CARDIOVASCULAR: Denies chest pain. Denies palpitations. Denies lower extremity edema. RESPIRATORY: Denies cough. Denies shortness of breath, wheezing. GASTROINTESTINAL: Denies abdominal pain or distention. Denies nausea, vomiting, or diarrhea. Denies blood in vomitus, stools, or per rectum. Denies black, tarry stools. Denies constipation. GENITOURINARY: Denies difficulty urinating, painful urination, frequency, blood in urine, or vaginal discharge. MUSCULOSKELETAL: Denies back or neck pain or stiffness. Denies joint pain SKIN: Denies rash, lesions or sores. HEMATOLOGIC : Denies easy bruising or bleeding. LYMPHATIC: Denies swollen glands. NEUROLOGICAL: Denies confusion or altered mental status. Denies loss of consciousness. Denies dizziness or lightheadedness. Denies headache. Denies weakness or paralysis. Denies problems difficulty with ambulation, slurred speech. Denies sensory loss, numbness, or tingling. Denies seizures. PSYCHIATRIC: Denies anxiety or stress. Denies depression, suicidal ideation, or homicidal ideation. Denies visual or auditory hallucinations. Physical Exam - Vital signs Vitals: Temp Pulse Resp BP 97.7 F 20 L 19 179/92 H 01/17/19 05:57 01/17/19 05:57 01/17/19 05:57 01/17/19 05:57 - Notes Notes: PHYSICAL EXAMINATION: GENERAL: Disheveled, found covered in bedbugs. HEAD: Atraumatic, normocephalic. EYES: Pupils equal round and reactive to light, extraocular movements intact, conjunctiva are normal. ENT: Nares patent, oropharynx clear without exudates. Moist mucous membranes. NECK: Normal range of motion, supple without lymphadenopathy LUNGS: Breath sounds clear to auscultation bilaterally and equal. No wheezes rales or rhonchi. HEART: Regular rate and rhythm without murmurs ABDOMEN: Soft, nontender, nondistended abdomen. No guarding, no rebound. No masses appreciated. Female : deferred Musculoskeletal: Normal range of motion, 1+ pitting edema. No cyanosis. NEUROLOGICAL: Cranial nerves grossly intact. Normal speech, normal gait. Normal sensory, motor exams PSYCH: Normal mood, normal affect. SKIN: Warm, Dry, normal turgor, no rashes or lesions noted. Course - Re-evaluation Re-evalutation: Laboratory 01/17/19 01/17/19 01/17/19 06:40 06:40 06:40 WBC 5.1 RBC 3.23 L Hgb 11.0 L Hct 33.8 L MCV 105 H MCH 34.0 H MCHC 32.5 RDW 18.0 H Plt Count 406 Total Counted 100 Seg Neutrophils % Not Reportable Seg Neuts % (Manual) 74 Band Neutrophils % 1 L Lymphocytes % Not Reportable Lymphocytes % (Manual) 19 Monocytes % Not Reportable Monocytes % (Manual) 4 Eosinophils % Not Reportable Eosinophils % (Manual) 1 Basophils % Not Reportable Basophils % (Manual) 1 Absolute Neutrophils Not Reportable Abs Neuts (Manual) 3.8 Absolute Lymphocytes Not Reportable Abs Lymphs (Manual) 1.0 Absolute Monocytes Not Reportable Abs Monocytes (Manual) 0.2 Absolute Eosinophils Not Reportable Absolute Eos (Manual) 0.1 Absolute Basophils Not Reportable Abs Basophils (Manual) 0.1 Platelet Comment ADEQUATE Poikilocytosis 1+ Anisocytosis 1+ Macrocytosis 1+ Ovalocytes 1+ Sasha Cells 1+ Schistocytes SLIGHT VBG pH VBG pCO2 VBG HCO3 VBG Base Excess Sodium 141.5 Potassium 6.4 H* Chloride 103 Carbon Dioxide 22 Anion Gap 17 BUN 91 H Creatinine 19.91 H Est GFR ( Amer) 2 L Est GFR (Non-Af Amer) 2 L Glucose 74 L Calcium 8.2 L Total Bilirubin 0.6 Direct Bilirubin 0.6 H Neonat Total Bilirubin Not Reportable Neonat Direct Bilirubin Not Reportable Neonat Indirect Bili Not Reportable AST 28 ALT 21 Alkaline Phosphatase 83 Troponin I 0.047 NT-Pro-B Natriuret Pep Cancelled Total Protein 6.8 Albumin 3.7 07/10/19 07/10/19 06:40 07:45 WBC RBC Hgb Hct MCV MCH MCHC RDW Plt Count Total Counted Seg Neutrophils % Seg Neuts % (Manual) Band Neutrophils % Lymphocytes % Lymphocytes % (Manual) Monocytes % Monocytes % (Manual) Eosinophils % Eosinophils % (Manual) Basophils % Basophils % (Manual) Absolute Neutrophils Abs Neuts (Manual) Absolute Lymphocytes Abs Lymphs (Manual) Absolute Monocytes Abs Monocytes (Manual) Absolute Eosinophils Absolute Eos (Manual) Absolute Basophils Abs Basophils (Manual) Platelet Comment Poikilocytosis Anisocytosis Macrocytosis Ovalocytes Sasha Cells Schistocytes VBG pH 7.29 L VBG pCO2 52.0 VBG HCO3 24.2 VBG Base Excess -3.0 Sodium Potassium Chloride Carbon Dioxide Anion Gap BUN Creatinine Est GFR ( Amer) Est GFR (Non-Af Amer) Glucose Calcium Total Bilirubin Direct Bilirubin Neonat Total Bilirubin Neonat Direct Bilirubin Neonat Indirect Bili AST ALT Alkaline Phosphatase Troponin I NT-Pro-B Natriuret Pep 534211 H Total Protein Albumin Chest X-Ray 01/17/19 06:06 IMPRESSION: 1. No significant change when compared to the prior study. 2. Stable volume loss in the left lung base which may be due to chronic pleural thickening, pleural fluid and/or atelectasis. 3. Stable cardiomegaly. Temp Pulse Resp BP Pulse Ox 97.7 F 20 L 16 185/83 H 100 01/17/19 05:57 01/17/19 05:57 01/17/19 08:01 01/17/19 08:01 01/17/19 08:01 78-year-old female with end-stage renal disease who undergoes dialysis presents with leg swelling. Patient admits that she has not been to dialysis for over 2 weeks due to transportation issues and feeling weak. Vital signs reviewed and patient is hypertensive but afebrile and not hypoxic. Patient was found to be covered in bedbugs and appears disheveled. CBC is without leukocytosis or anemi a. CMP shows a BUN of 91 and a creatinine of 19. Patient's BNP is greater than 100,000. 01/17/19 08:19 Dr. Kumar consulted for dialysis. Patient found to have a potassium of 6.4. 01/17/19 09:47 Dr. Kumar is able to dialyze the patient this morning. I did speak to the patient's primary care physician Dr. Adame who is agreeable for admission for observation. Patient was admitted to telemetry. - Vital Signs Vital signs: Temp Pulse Resp BP Pulse Ox 97.7 F 20 L 16 185/83 H 100 01/17/19 05:57 01/17/19 05:57 01/17/19 08:01 01/17/19 08:01 01/17/19 08:01 - Laboratory Result Diagrams: 01/17/19 06:40 01/17/19 06:40 Laboratory results interpreted by me: 01/17/19 01/17/19 01/17/19 06:40 06:40 06:40 RBC 3.23 L Hgb 11.0 L Hct 33.8 L MCV 105 H MCH 34.0 H RDW 18.0 H Band Neutrophils % 1 L VBG pH 7.29 L Potassium 6.4 H* BUN 91 H Creatinine 19.91 H Est GFR ( Amer) 2 L Est GFR (Non-Af Amer) 2 L Glucose 74 L Calcium 8.2 L Direct Bilirubin 0.6 H NT-Pro-B Natriuret Pep 01/17/19 07:45 RBC Hgb Hct MCV MCH RDW Band Neutrophils % VBG pH Potassium BUN Creatinine Est GFR ( Amer) Est GFR (Non-Af Amer) Glucose Calcium Direct Bilirubin NT-Pro-B Natriuret Pep [id number] H - Diagnostic Test Radiology reviewed: Image reviewed, Reports reviewed Discharge - Discharge Clinical Impression: End stage renal disease, Hyperkalemia Congestive heart failure (CHF) Qualifiers: Heart failure type: unspecified Heart failure chronicity: chronic Qualified Code(s): I50.9 - Heart failure, unspecified Condition: Fair Disposition: ADMITTED OBSERVATION Admitting Provider: Wendi Unit Admitted: Telemetry
--- NOTE | 2019-01-17 07:39 | RADIOLOGY REPORT (SQ) ---
EXAM DESCRIPTION: X-ray two view chest. CLINICAL HISTORY: 78 years Female, sob COMPARISON: 12/21/2018. TECHNIQUE: PA and Lateral views of the chest performed on 01/17/2019 at 7:02 AM FINDINGS: The lungs are well expanded. There is persistent volume loss in the left lung base which may be due to atelectasis and/or pleural fluid. There is blunting of the left lateral costophrenic sulcus and there is mild opacification along the left lateral hemithorax which may be due to pleural thickening or pleural fluid. There is no evidence of a pneumothorax. The cardiac silhouette is stable and enlarged. The mediastinal contours are normal. No acute osseous abnormalities are identified. There is diffuse osteopenia. No focal soft tissue abnormalities are identified. Surgical clips project along the medial aspect of the left upper extremity and/or left chest wall. IMPRESSION: 1. No significant change when compared to the prior study. 2. Stable volume loss in the left lung base which may be due to chronic pleural thickening, pleural fluid and/or atelectasis. 3. Stable cardiomegaly.
[2019-01-17] MEDS ORDERED: NORMAL SALINE 1000 ML 1,000 ML IV PRN (11:23)
--- NOTE | 2019-01-17 18:27 | PDOC H&P ---
History of Present Illness Admission Date/PCP: 01/17/19 08:49 JOSE MANUEL MIX MD History of Present Illness: LOVELY ESPAÑA is female,She came to the emergency room for evaluation of generalized body weakness, she was recently admitted in this hospital on 01/07/2019, she has end-stage renal disease on maintenance hemodialysis. She gets dialysis on Wednesdays and Fridays, she has not been to dialysis in over 2 weeks because essentially for the fact that the family is dysfunctional. She stated that her children would not take her to outpatient dialysis center and the person that has been taking her to dialysis refused to take her to dialysis because of her home situation, her home is very filthy.She was very acidotic with hyperkalemia while she needed emergency hemodialysis, she has other comorbid conditions including type 2 diabetes mellitus, legally blind, legally deaf, she may need to be placed in a custodial home. Past Medical History Cardiac Medical History: Reports: Myocardial Infarction - 2017; POSSIBLE CARDIAC STENT PLACEMENT "TO KEEP THE VALVE OPEN", Hyperlipidema, Hypertension - HX. OF, CURRENTLY OFF HER HTN MEDS DUE TO LOW BP Pulmonary Medical History: Reports: Pneumonia - NOVEMBER 2017 Neurological Medical History: Denies: Seizures Endocrine Medical History: Reports: Diabetes Mellitus Type 2, Hypothyroidism Renal/ Medical History: Reports: End Stage Renal Disease Musculoskeltal Medical History: Reports: Arthritis Hematology: Reports: Anemia - PER PREVIOUS CHARTS Past Surgical History Past Surgical History: Reports: Cardiac Catheterization - Possible cardiac catheterization with stent placement. Records are pending, Cholecystectomy Denies: Pacemaker Social History Lives with: Family Smoking Status: Never Smoker Frequency of Alcohol Use: None Hx Recreational Drug Use: No Hx Prescription Drug Abuse: No Family History Family History: CAD, Hypertension, Other - Kidney disease Parental Family History Reviewed: Yes Children Family History Reviewed: Yes Sibling(s) Family History Reviewed.: Yes Medication/Allergy Home Medications: RX: Amlodipine Besylate [Norvasc 10 mg Tablet] 10 mg PO DAILY 12/22/18 RX: Aspirin [Micheal Chewable Aspirin] 81 mg PO DAILY 12/22/18 RX: Atorvastatin Calcium [Lipitor 80 mg Tablet] 80 mg PO DAILY 12/22/18 RX: Clonidine HCl [Catapres 0.2 mg Tablet] 0.2 mg PO Q12 12/22/18 RX: Levothyroxine Sodium 150 mcg PO Q6AM 12/22/18 Allergies/Adverse Reactions: adhesive tape Allergy (Intermediate, Verified 01/17/19 07:40) Generalized rash No Known Drug Allergies Allergy (Verified 01/17/19 07:40) Review of Systems Constitutional: PRESENT: weakness Eyes: PRESENT: other - She legally blind Ears: PRESENT: other - She is legally hard of hearing Cardiovascular: PRESENT: dyspnea on exertion, edema Respiratory: PRESENT: cough, dyspnea Gastrointestinal: PRESENT: nausea Musculoskeletal: ABSENT: joint swelling Integumentary: ABSENT: rash, wounds Neurological: PRESENT: paresthesias, weakness Psychiatric: ABSENT: anxiety, depression, homidical ideation, suicidal ideation Endocrine: ABSENT: cold intolerance, heat intolerance, menstrual abnormalities, polydipsia, polyuria Hematologic/Lymphatic: ABSENT: easy bleeding, easy bruising, lymphadenopathy Physical Exam Vital Signs: Temp Pulse Resp BP Pulse Ox 97.7 F 20 L 13 166/78 H 100 01/17/19 05:57 01/17/19 05:57 01/17/19 09:01 01/17/19 09:01 01/17/19 09:01 Intake & Output 01/16/19 01/17/19 01/18/19 06:59 06:59 06:59 Output Total 2600 Balance -2600 Weight 78.471 kg General appearance: PRESENT: obese Eye exam: PRESENT: periorbital swelling Respiratory exam: PRESENT: decreased breath sounds Cardiovascular exam: PRESENT: +S1, +S2 GI/Abdominal exam: PRESENT: soft Neurological exam: PRESENT: alert Results Laboratory Results: 01/17/19 06:40 01/17/19 06:40 01/17/19 01/17/19 01/17/19 06:40 06:40 06:40 WBC 5.1 RBC 3.23 L Hgb 11.0 L Hct 33.8 L MCV 105 H MCH 34.0 H MCHC 32.5 RDW 18.0 H Plt Count 406 Seg Neutrophils % Not Reportable Lymphocytes % Not Reportable Monocytes % Not Reportable Eosinophils % Not Reportable Basophils % Not Reportable Absolute Neutrophils Not Reportable Absolute Lymphocytes Not Reportable Absolute Monocytes Not Reportable Absolute Eosinophils Not Reportable Absolute Basophils Not Reportable VBG pH 7.29 L VBG pCO2 52.0 VBG HCO3 24.2 VBG Base Excess -3.0 Sodium 141.5 Potassium 6.4 H* Chloride 103 Carbon Dioxide 22 Anion Gap 17 BUN 91 H Creatinine 19.91 H Est GFR ( Amer) 2 L Est GFR (Non-Af Amer) 2 L Glucose 74 L Calcium 8.2 L Total Bilirubin 0.6 AST 28 ALT 21 Alkaline Phosphatase 83 Total Protein 6.8 Albumin 3.7 01/17/19 01/17/19 06:40 07:45 Troponin I 0.047 NT-Pro-B Natriuret Pep Cancelled [id number] H Impressions: Chest X-Ray 01/17/19 06:06 IMPRESSION: 1. No significant change when compared to the prior study. 2. Stable volume loss in the left lung base which may be due to chronic pleural thickening, pleural fluid and/or atelectasis. 3. Stable cardiomegaly. 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
--- NOTE | 2019-01-17 18:43 | PDOC CONSULTATION ---
Consultation Consult Date: 01/17/19 Provider Consulted: WINTER BENEDICT Consult reason:: I was asked to see the patient for emergency dialysis due to hyperkalemia. History of Present Illness Admission Date/PCP: 01/17/19 08:49 JOSE MANUEL MIX MD History of Present Illness: LOVELY ESPAAÑ is a 78 year old female with history of ESRD on maintenance hemodialysis 3 times a week, hypertension, diabetes mellitus type 2 and no noncompliance who was brought to the emergency room this morning after missing dialysis for 2 weeks. Patient complains of weakness. Patient states that she does not have transportation to go to dialysis unit and her children cannot bring her so she missed her treatments. In the emergency room she has elevated potassium of 6.4 and she is grossly and clinically fluid overloaded. So I was called and I arrange for emergency hemodialysis. I saw the patient during dialysis treatment. Communication is very difficult with her because she is very deaf. She appears to be comfortable and not in respiratory distress. As usual her blood pressure is on the low side. She appears to be swollen. She tolerated the whole dialysis treatment. Past Medical History Cardiac Medical History: Reports: CHF-Diastolic, Hyperlipidemia, Hypertension- primary, Myocardial Infarction - 2017; POSSIBLE CARDIAC STENT PLACEMENT "TO KEEP THE VALVE OPEN" Pulmonary Medical History: Reports: Pneumonia - NOVEMBER 2017 Endocrine Medical History: Reports: Diabetes Mellitus Type 2, Hypothyroidism Renal/ Medical History: Reports: End Stage Renal Disease Musculoskeltal Medical History: Reports: Arthritis Hematology Medical History: Reports Anemia of Chronic Kidney Disease Past Surgical History Past Surgical History: Reports: Cardiac Catheterization - Possible cardiac catheterization with stent placement. Records are pending, Cholecystectomy, Dialysis Access Surgery AVF Social History Information Source: [facility] Records Lives with: Family Smoking Status: Never Smoker Frequency of Alcohol Use: None Hx Recreational Drug Use: No Hx Prescription Drug Abuse: No Family History Family History: Reviewed & Not Pertinent Parental Family History Reviewed: Yes Children Family History Reviewed: Yes Sibling(s) Family History Reviewed.: Yes Medication/Allergy Home Medications: Amlodipine Besylate [Norvasc 10 mg Tablet] 10 mg PO DAILY 12/22/18 Aspirin [Micheal Chewable Aspirin] 81 mg PO DAILY 12/22/18 Atorvastatin Calcium [Lipitor 80 mg Tablet] 80 mg PO DAILY 12/22/18 Clonidine HCl [Catapres 0.2 mg Tablet] 0.2 mg PO Q12 12/22/18 Levothyroxine Sodium 150 mcg PO Q6AM 12/22/18 Allergies/Adverse Reactions: adhesive tape Allergy (Intermediate, Verified 01/17/19 07:40) Generalized rash No Known Drug Allergies Allergy (Verified 01/17/19 07:40) Review of Systems All systems: reviewed and no additional remarkable complaints except as stated Review of Systems: Constitutional: ABSENT: chills, fatigue, fever(s), headache(s), weight gain, weight loss; feels weak Eyes: Baseline: legally blind. Ears: Baseline deafness Cardiovascular: ABSENT: chest pain, dyspnea on exertion, orthropnea, palpitations; positive leg swelling Respiratory: ABSENT: cough, dyspnea, hemoptysis Gastrointestinal: ABSENT: abdominal pain, constipation, diarrhea, hematemesis, hematochezia, nausea, vomiting Genitourinary: ABSENT: dysuria, hematuria Musculoskeletal: ABSENT: joint swelling Integumentary: ABSENT: rash, wounds Neurological: ABSENT: abnormal gait, abnormal speech, confusion, dizziness, focal weakness, numbness, syncope Psychiatric: ABSENT: anxiety, depression Endocrine: ABSENT: cold intolerance, heat intolerance, polydipsia, polyuria Hematologic/Lymphatic: ABSENT: easy bleeding, easy bruising, lymphadenopathy Physical Exam Vital Signs: Temp Pulse Resp BP Pulse Ox 97.7 F 20 L 13 166/78 H 100 01/17/19 05:57 01/17/19 05:57 01/17/19 09:01 01/17/19 09:01 01/17/19 09:01 Intake & Output 01/16/19 01/17/19 01/18/19 06:59 06:59 06:59 Weight 78.471 kg Vitals during dialysis: Blood pressure of 97/40, heart rate of 55, blood flow rate of 400 mL/min and dialysate flow rate of 800 mL/min. Exam: General appearance: No acute distress, cooperative, well-developed, well- nourished Head exam: PRESENT: atraumatic, normocephalic Eye exam: PRESENT: Conjunctiva pale, legally blind EOMI, PERRLA. ABSENT: conjunctival injection, scleral icterus Mouth exam: PRESENT: moist, neck supple, tongue midline Neck exam: PRESENT: full ROM. ABSENT: carotid bruit, JVD, lymphadenopathy, thyromegaly Respiratory exam: PRESENT: clear to auscultation bilaterally. ABSENT: rales, rhonchi, stridor, wheezes Cardiovascular exam: PRESENT: RRR, +S1, +S2. ABSENT: systolic murmur Pulses: PRESENT: normal radial pulses, normal dorsalis pedis pulses GI/Abdominal exam: PRESENT: normal bowel sounds, soft. ABSENT: guarding, mass, tenderness Rectal exam: Deferred Extremities exam: PRESENT: full ROM. Positive upper extremity edema and lower extremity grade 2 bilateral pitting edema ABSENT: calf tenderness Musculoskeletal: PRESENT: full ROM. ABSENT: deformity Neurological exam: PRESENT: alert, Awake, Oriented to person, Oriented to place, Oriented to time, reflexes normal, CN II-XII grossly intact. ABSENT: motor sensory deficit Psychiatric exam: PRESENT: appropriate affect, normal mood. ABSENT: homicidal ideation, suicidal ideation Skin exam: PRESENT: intact, dry, warm. ABSENT: rash Results Laboratory Results: 01/17/19 06:40 01/17/19 06:40 01/17/19 01/17/19 01/17/19 06:40 06:40 06:40 WBC 5.1 RBC 3.23 L Hgb 11.0 L Hct 33.8 L MCV 105 H MCH 34.0 H MCHC 32.5 RDW 18.0 H Plt Count 406 Seg Neutrophils % Not Reportable Lymphocytes % Not Reportable Monocytes % Not Reportable Eosinophils % Not Reportable Basophils % Not Reportable Absolute Neutrophils Not Reportable Absolute Lymphocytes Not Reportable Absolute Monocytes Not Reportable Absolute Eosinophils Not Reportable Absolute Basophils Not Reportable VBG pH 7.29 L VBG pCO2 52.0 VBG HCO3 24.2 VBG Base Excess -3.0 Sodium 141.5 Potassium 6.4 H* Chloride 103 Carbon Dioxide 22 Anion Gap 17 BUN 91 H Creatinine 19.91 H Est GFR ( Amer) 2 L Est GFR (Non-Af Amer) 2 L Glucose 74 L Calcium 8.2 L Total Bilirubin 0.6 AST 28 ALT 21 Alkaline Phosphatase 83 Total Protein 6.8 Albumin 3.7 01/17/19 01/17/19 06:40 07:45 Troponin I 0.047 NT-Pro-B Natriuret Pep Cancelled [id number] H Impressions: Chest X-Ray 01/17/19 06:06 IMPRESSION: 1. No significant change when compared to the prior study. 2. Stable volume loss in the left lung base which may be due to chronic pleural thickening, pleural fluid and/or atelectasis. 3. Stable cardiomegaly. Assessment & Plan - Diagnosis (1) Hyperkalemia Is this a current diagnosis for this admission?: Yes Plan: Due to missing dialysis for 2 weeks. (2) End stage renal disease on dialysis Is this a current diagnosis for this admission?: Yes Plan: Patient is uremic after missing 2 weeks of dialysis. We did dialysis today for 3.5 hours, using the patient's AV fistula, with 1K bath for the first hour then to potassium bath, blood flow rate of 400 mL per minute, dialysate flow rate of 800 mL per minute, ultrafiltration 3 to 4 L, no heparin and no Procrit. Patient tolerated dialysis without any problems. I think the patient needs to have a retirement placement since her family could not take care of her medical needs. (3) Volume overload Qualifiers: Hypervolemia type: unspecified Qualified Code(s): E87.70 - Fluid overload, unspecified Is this a current diagnosis for this admission?: Yes (4) Anemia in chronic kidney disease Is this a current diagnosis for this admission?: Yes (5) Hypotension Qualifiers: Hypotension type: other hypotension type Qualified Code(s): I95.89 - Other hypotension Is this a current diagnosis for this admission?: Yes Plan: Chronic. (6) Diabetes mellitus type 2 in obese Is this a current diagnosis for this admission?: Yes (7) Noncompliance Is this a current diagnosis for this admission?: Yes - Notes Notes: Thank you very much for this consult. We will follow patient with you. - Time Time Spent: 50 to 70 Minutes
[2019-01-17] MEDS: CLONIDINE HCL 0.2 MG TABLET PO SCH (19:38)
[2019-01-17] MEDS: LEVOTHYROXINE SODIUM 0.15 MG TABLET PO SCH (19:38)
[2019-01-17] MEDS: ASPIRIN 81 MG TABLET, CHEWABLE PO SCH (19:38)
[2019-01-17] MEDS: AMLODIPINE BESYLATE 10 MG TABLET PO SCH (19:38)
[2019-01-17] MEDS: ATORVASTATIN CALCIUM 80 MG TABLET PO SCH (22:36)
[2019-01-17] MEDS: HEPARIN SOD (PORCINE) 5,000 UNIT/ML 1 ML SYRINGE SUBCUT SCH (22:36)
[2019-01-18] MEDS: CLONIDINE HCL 0.2 MG TABLET PO SCH ×2 (06:31→18:13)
[2019-01-18] MEDS: LEVOTHYROXINE SODIUM 0.15 MG TABLET PO SCH (06:31)
[2019-01-18] MEDS: HEPARIN SOD (PORCINE) 5,000 UNIT/ML 1 ML SYRINGE SUBCUT SCH ×3 (06:31→21:41)
[2019-01-18] MEDS ORDERED: ENOXAPARIN SODIUM INJ 30 MG/0.3 ML DISP.SYRIN SUBCUT SCH (10:00)
[2019-01-18] MEDS: AMLODIPINE BESYLATE 10 MG TABLET PO SCH (11:15)
[2019-01-18] MEDS: ASPIRIN 81 MG TABLET, CHEWABLE PO SCH (11:18)
--- NOTE | 2019-01-18 20:20 | PDOC PROGRESS REPORT ---
Subjective Progress Note for:: 01/18/19 Subjective:: Patient seen by the bedside, she has no new complaints Reason For Visit: METABOLIC ACIDOSIS Physical Exam Vital Signs: Temp Pulse Resp BP Pulse Ox 98.2 F 59 L 16 123/56 L 100 01/18/19 19:39 01/18/19 19:39 01/18/19 19:39 01/18/19 19:39 01/18/19 19:39 Intake & Output 01/17/19 01/18/19 01/19/19 06:59 06:59 06:59 Intake Total 360 Output Total 2600 Balance -2600 360 Weight 78.471 kg 73.6 kg General appearance: PRESENT: no acute distress Eye exam: PRESENT: PERRLA Respiratory exam: PRESENT: clear to auscultation debbie Cardiovascular exam: PRESENT: +S1, +S2 GI/Abdominal exam: PRESENT: soft Neurological exam: PRESENT: alert Results Laboratory Results: 01/17/19 06:40 01/17/19 06:40 01/17/19 01/17/19 06:40 07:45 Troponin I 0.047 NT-Pro-B Natriuret Pep Cancelled [id number] H Impressions: Chest X-Ray 01/17/19 06:06 IMPRESSION: 1. No significant change when compared to the prior study. 2. Stable volume loss in the left lung base which may be due to chronic pleural thickening, pleural fluid and/or atelectasis. 3. Stable cardiomegaly. 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
[2019-01-18] MEDS: ATORVASTATIN CALCIUM 80 MG TABLET PO SCH (21:42)
[2019-01-19] MEDS ORDERED: NORMAL SALINE 1000 ML 1,000 ML IV PRN (05:00)
[2019-01-19 05:29] LABS: HEMATOCRIT 26.1 % (36.0-47.0); MEAN CORPUSCULAR HEMOGLOBIN 34.5 pg (27.0-33.4); MEAN CORPUSCULAR HGB CONC 33.2 g/dL (32.0-36.0); MEAN CORPUSCULAR VOLUME 104 fl (80-97); PLATELET COUNT 220 10^3/uL (150-450); RED BLOOD COUNT 2.51 10^6/uL (3.72-5.28); RED CELL DISTRIBUTION WIDTH 17.9 % (11.5-14.0)
[2019-01-19 05:43] LABS: ANION GAP 9 (5-19); BLOOD UREA NITROGEN 50 mg/dL (7-20); CALCIUM 7.6 mg/dL (8.4-10.2); CARBON DIOXIDE 29 mmol/L (22-30); CHLORIDE 100 mmol/L (98-107); SODIUM 138.3 mmol/L (137-145)
[2019-01-19 05:50] LABS: HEMOGLOBIN 8.6 g/dL (12.0-15.5)
[2019-01-19 05:56] LABS: GLUCOSE 67 mg/dL (75-110)
[2019-01-19] MEDS: CLONIDINE HCL 0.2 MG TABLET PO SCH ×2 (06:37→17:53)
[2019-01-19] MEDS: LEVOTHYROXINE SODIUM 0.15 MG TABLET PO SCH (06:37)
[2019-01-19] MEDS: HEPARIN SOD (PORCINE) 5,000 UNIT/ML 1 ML SYRINGE SUBCUT SCH ×3 (06:38→21:17)
[2019-01-19] MEDS ORDERED: EPOETIN ALFA-EPBX 40,000 UNIT/ML VIAL (RENAL) IV ONE (09:30)
--- NOTE | 2019-01-19 11:09 | PDOC PROGRESS REPORT ---
Subjective Progress Note for:: 01/19/19 Subjective:: I am seeing the patient on dialysis this morning. Patient tells me that she is holding on. She still can complains of feeling cold. Otherwise she seems to be more comfortable today compared to 2 days ago on dialysis. Her blood pressure is a little bit on the low side so we have adjusted her ultrafiltration. Otherwise so far her dialysis is going good so far. Reason For Visit: METABOLIC ACIDOSIS Physical Exam Vital Signs: Temp Pulse Resp BP Pulse Ox 98.4 F 64 16 124/58 L 100 01/19/19 00:00 01/19/19 02:00 01/19/19 00:00 01/19/19 00:00 01/19/19 00:00 Intake & Output 01/18/19 01/19/19 01/20/19 06:59 06:59 06:59 Intake Total 560 Output Total 2600 Balance -2600 560 Weight 73.6 kg 73.6 kg Vitals during dialysis: Blood pressure 94/50, heart rate of 58, blood flow rate of 400 mL/min and dialysate flow rate of 600 mL/min. Exam: General appearance: PRESENT: no acute distress, cooperative, well-developed, well-nourished Head exam: PRESENT: atraumatic, normocephalic; patient is very difficult of hearing Eye exam: PRESENT: conjunctiva pale, legally blind PERRLA. ABSENT: scleral icterus Neck exam: ABSENT: JVD Respiratory exam: PRESENT: Normal breath sounds. ABSENT: crackles, rales, rhonchi, unlabored, wheezes Cardiovascular exam: PRESENT: Regular rate rhythm -+S1, +S2. ABSENT: diastolic murmur, systolic murmur GI/Abdominal exam: PRESENT: normal bowel sounds, soft. ABSENT: guarding, mass, tenderness Extremities exam: Improved grade 1 bilateral lower extremity pitting edema Neurological exam: PRESENT: alert, awake, oriented to person, place and time. Skin exam: PRESENT: dry, warm, Results Laboratory Results: 01/19/19 04:59 01/19/19 04:59 01/19/19 01/19/19 04:59 04:59 WBC 3.0 L RBC 2.51 L Hgb 8.6 L D Hct 26.1 L MCV 104 H MCH 34.5 H MCHC 33.2 RDW 17.9 H Plt Count 220 Sodium 138.3 Potassium 5.0 Chloride 100 Carbon Dioxide 29 Anion Gap 9 BUN 50 H Creatinine 12.39 H Est GFR ( Amer) 4 L Est GFR (Non-Af Amer) 3 L Glucose 67 L Calcium 7.6 L 01/17/19 01/17/19 06:40 07:45 Troponin I 0.047 NT-Pro-B Natriuret Pep Cancelled [id number] H Impressions: Chest X-Ray 01/17/19 06:06 IMPRESSION: 1. No significant change when compared to the prior study. 2. Stable volume loss in the left lung base which may be due to chronic pleural thickening, pleural fluid and/or atelectasis. 3. Stable cardiomegaly. Assessment & Plan - Diagnosis (1) End stage renal disease on dialysis Is this a current diagnosis for this admission?: Yes Plan: We will do dialysis today for 3 hours, using the patient's AV fistula, with 2 potassium bath, blood flow rate of 400 mL per minute, dialysate flow rate of 600 mL per minute, ultrafiltration 2.5 to 3 L as tolerated, no heparin and Procrit with 40,000 units during dialysis intravenously. Patient is currently monitored throughout dialysis treatment. Treatment plan discussed with her nurse. (2) Hyperkalemia Is this a current diagnosis for this admission?: Yes Plan: Resolved with dialysis. (3) Volume overload Qualifiers: Hypervolemia type: unspecified Qualified Code(s): E87.70 - Fluid overload, unspecified Is this a current diagnosis for this admission?: Yes Plan: Improving clinically. (4) Anemia in chronic kidney disease Is this a current diagnosis for this admission?: Yes Plan: Hemoglobin dropped from 11 to 8.6. Will check stool for occult blood. Will give her Procrit 40,000 units IV urinalysis. (5) Hypotension Qualifiers: Hypotension type: other hypotension type Qualified Code(s): I95.89 - Other hypotension Is this a current diagnosis for this admission?: Yes Plan: Chronic. Adjust ultrafiltration during dialysis. (6) Diabetes mellitus type 2 in obese Is this a current diagnosis for this admission?: Yes (7) Noncompliance Is this a current diagnosis for this admission?: Yes Plan: Discussed importance of being compliant with her dialysis treatment. Since the patient has some social issues regarding transportation going to and from dialysis from her home I think patient may be better off with [facility] home placement. Defer that to Dr. Adame. - Time Time with patient: 15-25 minutes
[2019-01-19] MEDS: ASPIRIN 81 MG TABLET, CHEWABLE PO SCH (12:38)
[2019-01-19] MEDS: AMLODIPINE BESYLATE 10 MG TABLET PO SCH (12:39)
[2019-01-19] MEDS: ATORVASTATIN CALCIUM 80 MG TABLET PO SCH (21:17)
--- NOTE | 2019-01-19 21:44 | PDOC PROGRESS REPORT ---
Subjective Progress Note for:: 01/19/19 Subjective:: Patient was seen today he had hemodialysis Reason For Visit: METABOLIC ACIDOSIS Physical Exam Vital Signs: Temp Pulse Resp BP Pulse Ox 97.6 F 68 19 131/57 H 99 01/19/19 16:00 01/19/19 16:00 01/19/19 16:00 01/19/19 16:00 01/19/19 16:00 Intake & Output 01/18/19 01/19/19 01/20/19 06:59 06:59 06:59 Intake Total 560 450 Output Total 2600 2500 Balance -2600 560 -2050 Weight 73.6 kg 73.6 kg General appearance: PRESENT: no acute distress Eye exam: PRESENT: PERRLA Respiratory exam: PRESENT: clear to auscultation debbie Cardiovascular exam: PRESENT: +S1, +S2 GI/Abdominal exam: PRESENT: soft Neurological exam: PRESENT: alert, CN II-XII grossly intact Results Laboratory Results: 01/19/19 04:59 01/19/19 04:59 01/19/19 01/19/19 04:59 04:59 WBC 3.0 L RBC 2.51 L Hgb 8.6 L D Hct 26.1 L MCV 104 H MCH 34.5 H MCHC 33.2 RDW 17.9 H Plt Count 220 Sodium 138.3 Potassium 5.0 Chloride 100 Carbon Dioxide 29 Anion Gap 9 BUN 50 H Creatinine 12.39 H Est GFR ( Amer) 4 L Est GFR (Non-Af Amer) 3 L Glucose 67 L Calcium 7.6 L 01/17/19 01/17/19 06:40 07:45 Troponin I 0.047 NT-Pro-B Natriuret Pep Cancelled [id number] H Impressions: Chest X-Ray 01/17/19 06:06 IMPRESSION: 1. No significant change when compared to the prior study. 2. Stable volume loss in the left lung base which may be due to chronic pleural thickening, pleural fluid and/or atelectasis. 3. Stable cardiomegaly. Assessment & Plan - Diagnosis (1) Hyperkalemia Is this a current diagnosis for this admission?: Yes (2) Metabolic acidosis Is this a current diagnosis for this admission?: Yes (3) End stage chronic kidney disease Is this a current diagnosis for this admission?: Yes (4) Volume overload Qualifiers: Hypervolemia type: unspecified Qualified Code(s): E87.70 - Fluid overload, unspecified Is this a current diagnosis for this admission?: Yes (5) T2DM (type 2 diabetes mellitus) Qualifiers: Diabetes mellitus fpc insulin use: without fpc use Diabetes mellitus complication status: with kidney complications Diabetes mellitus complication detail: with chronic kidney disease Chronic kidney disease stage: on chronic dialysis Qualified Code(s): E11.22 - Type 2 diabetes mellitus with diabetic chronic kidney disease; N18.6 - End stage renal disease; Z99.2 - Dependence on renal dialysis Is this a current diagnosis for this admission?: Yes
[2019-01-20] MEDS: CLONIDINE HCL 0.2 MG TABLET PO SCH ×3 (05:28→17:09)
[2019-01-20] MEDS: LEVOTHYROXINE SODIUM 0.15 MG TABLET PO SCH (05:28)
[2019-01-20] MEDS: HEPARIN SOD (PORCINE) 5,000 UNIT/ML 1 ML SYRINGE SUBCUT SCH ×3 (05:28→21:22)
[2019-01-20] MEDS: AMLODIPINE BESYLATE 10 MG TABLET PO SCH (09:42)
[2019-01-20] MEDS: ASPIRIN 81 MG TABLET, CHEWABLE PO SCH (09:42)
--- NOTE | 2019-01-20 17:01 | PDOC PROGRESS REPORT ---
Subjective Progress Note for:: 01/20/19 Subjective:: Patient was seen today he had hemodialysis Reason For Visit: METABOLIC ACIDOSIS Physical Exam Vital Signs: Temp Pulse Resp BP Pulse Ox 97.8 F 85 19 121/35 L 98 01/20/19 12:00 01/20/19 14:00 01/20/19 12:00 01/20/19 12:00 01/20/19 12:00 Intake & Output 01/19/19 01/20/19 01/21/19 06:59 06:59 06:59 Intake Total 560 570 240 Output Total 2500 Balance 560 -1930 240 Weight 73.6 kg 74.2 kg General appearance: PRESENT: no acute distress Eye exam: PRESENT: PERRLA Respiratory exam: PRESENT: clear to auscultation debbie Cardiovascular exam: PRESENT: +S1, +S2 GI/Abdominal exam: PRESENT: soft Neurological exam: PRESENT: alert Results Laboratory Results: 01/19/19 04:59 01/19/19 04:59 01/17/19 01/17/19 06:40 07:45 Troponin I 0.047 NT-Pro-B Natriuret Pep Cancelled [id number] H Impressions: Chest X-Ray 01/17/19 06:06 IMPRESSION: 1. No significant change when compared to the prior study. 2. Stable volume loss in the left lung base which may be due to chronic pleural thickening, pleural fluid and/or atelectasis. 3. Stable cardiomegaly. 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
[2019-01-20] MEDS: ATORVASTATIN CALCIUM 80 MG TABLET PO SCH (21:22)
[2019-01-21] MEDS: HEPARIN SOD (PORCINE) 5,000 UNIT/ML 1 ML SYRINGE SUBCUT SCH ×3 (06:02→22:24)
[2019-01-21] MEDS: CLONIDINE HCL 0.2 MG TABLET PO SCH ×2 (06:02→17:07)
[2019-01-21] MEDS: LEVOTHYROXINE SODIUM 0.15 MG TABLET PO SCH (06:02)
[2019-01-21] MEDS: AMLODIPINE BESYLATE 10 MG TABLET PO SCH (09:25)
[2019-01-21] MEDS: ASPIRIN 81 MG TABLET, CHEWABLE PO SCH (09:25)
--- NOTE | 2019-01-21 15:31 | PDOC PROGRESS REPORT ---
Subjective Progress Note for:: 01/21/19 Subjective:: Patient was seen today he had hemodialysis Reason For Visit: METABOLIC ACIDOSIS Physical Exam Vital Signs: Temp Pulse Resp BP Pulse Ox 97.8 F 69 18 148/66 H 100 01/21/19 12:00 01/21/19 14:00 01/21/19 12:00 01/21/19 12:00 01/21/19 12:00 Intake & Output 01/20/19 01/21/19 01/22/19 06:59 06:59 06:59 Intake Total 570 480 120 Output Total 2500 0 Balance -1930 480 120 Weight 74.2 kg 57.1 kg General appearance: PRESENT: no acute distress Eye exam: PRESENT: PERRLA Respiratory exam: PRESENT: clear to auscultation debbie Cardiovascular exam: PRESENT: +S1, +S2 GI/Abdominal exam: PRESENT: soft Neurological exam: PRESENT: alert Results Laboratory Results: 01/19/19 04:59 01/19/19 04:59 01/21/19 09:20 Stool Occult Blood NEGATIVE 01/17/19 01/17/19 06:40 07:45 Troponin I 0.047 NT-Pro-B Natriuret Pep Cancelled [id number] H Impressions: Chest X-Ray 01/17/19 06:06 IMPRESSION: 1. No significant change when compared to the prior study. 2. Stable volume loss in the left lung base which may be due to chronic pleural thickening, pleural fluid and/or atelectasis. 3. Stable cardiomegaly. Assessment & Plan - Diagnosis (1) Hyperkalemia Is this a current diagnosis for this admission?: Yes (2) Metabolic acidosis Is this a current diagnosis for this admission?: Yes (3) End stage chronic kidney disease Is this a current diagnosis for this admission?: Yes (4) Volume overload Qualifiers: Hypervolemia type: unspecified Qualified Code(s): E87.70 - Fluid overload, unspecified Is this a current diagnosis for this admission?: Yes (5) T2DM (type 2 diabetes mellitus) Qualifiers: Diabetes mellitus rn long term care insulin use: without mcc use Diabetes mellitus complication status: with kidney complications Diabetes mellitus complication detail: with chronic kidney disease Chronic kidney disease stage: on chronic dialysis Qualified Code(s): E11.22 - Type 2 diabetes mellitus with diabetic chronic kidney disease; N18.6 - End stage renal disease; Z99.2 - Dependence on renal dialysis Is this a current diagnosis for this admission?: Yes
[2019-01-21] MEDS ORDERED: EPOETIN ALFA-EPBX 10,000 UNIT/ML VIAL (RENAL) IV PRN (18:58)
[2019-01-21] MEDS: ATORVASTATIN CALCIUM 80 MG TABLET PO SCH (22:24)
[2019-01-22] MEDS ORDERED: NORMAL SALINE 1000 ML 1,000 ML IV PRN (05:00)
[2019-01-22] MEDS ORDERED: EPOETIN ALFA INJ 20000 UNIT/1 ML VIAL (RENAL) IV PRN (05:00)
[2019-01-22] MEDS: LEVOTHYROXINE SODIUM 0.15 MG TABLET PO SCH (06:00)
[2019-01-22] MEDS: CLONIDINE HCL 0.2 MG TABLET PO SCH ×2 (06:01→17:16)
[2019-01-22] MEDS: HEPARIN SOD (PORCINE) 5,000 UNIT/ML 1 ML SYRINGE SUBCUT SCH ×3 (06:01→21:47)
[2019-01-22 06:53] LABS: HEMATOCRIT 31.6 % (36.0-47.0); HEMOGLOBIN 10.3 g/dL (12.0-15.5); MEAN CORPUSCULAR HGB CONC 32.5 g/dL (32.0-36.0); MEAN CORPUSCULAR VOLUME 105 fl (80-97); PLATELET COUNT 204 10^3/uL (150-450); RED BLOOD COUNT 3.02 10^6/uL (3.72-5.28); WHITE BLOOD COUNT 4.9 10^3/uL (4.0-10.5)
[2019-01-22] MEDS ORDERED: EPOETIN ALFA-EPBX 20,000 UNITS (ESRD) in SYRINGE IV PRN (08:12)
[2019-01-22] MEDS: ASPIRIN 81 MG TABLET, CHEWABLE PO SCH (09:34)
[2019-01-22] MEDS: AMLODIPINE BESYLATE 10 MG TABLET PO SCH (09:34)
--- NOTE | 2019-01-22 09:38 | PDOC PROGRESS REPORT ---
Subjective Progress Note for:: 01/22/19 Subjective:: I saw the patient during dialysis this morning. She states that she does not feel well and sure enough her blood pressure went down at the moment to 80/42. We gave her saline and her blood pressure went up immediately. Otherwise she does not have any new complaints. Dialysis is going well so far. Patient is awaiting correction facility placement. Reason For Visit: METABOLIC ACIDOSIS Physical Exam Vital Signs: Temp Pulse Resp BP Pulse Ox 98.6 F 72 18 153/54 H 97 01/22/19 03:57 01/22/19 07:00 01/22/19 03:57 01/22/19 03:57 01/22/19 03:57 Intake & Output 01/21/19 01/22/19 01/23/19 06:59 06:59 06:59 Intake Total 480 510 Output Total 0 0 Balance 480 510 Weight 57.1 kg 68.1 kg Vitals during dialysis: Blood pressure 135/62, heart rate of 68, blood flow rate of 450 mL/min and dialysate flow rate of 800 mL/min. Exam: General appearance: PRESENT: no acute distress, cooperative, well-developed, well-nourished Head exam: PRESENT: atraumatic, normocephalic; patient is legally blind and deaf Eye exam: PRESENT: conjunctiva pale, PERRLA. ABSENT: scleral icterus Neck exam: ABSENT: JVD Respiratory exam: PRESENT: Normal breath sounds. ABSENT: crackles, rales, rhonchi, unlabored, wheezes Cardiovascular exam: PRESENT: Regular rate rhythm -+S1, +S2. ABSENT: diastolic murmur, systolic murmur GI/Abdominal exam: PRESENT: normal bowel sounds, soft. ABSENT: guarding, mass, tenderness Extremities exam: Significantly improved bilateral lower extremity trace pitting edema Neurological exam: PRESENT: alert, awake, oriented to person, place and time. Skin exam: PRESENT: dry, warm, Results Laboratory Results: 01/22/19 06:20 01/21/19 01/22/19 01/22/19 09:20 06:20 06:20 WBC 4.9 RBC 3.02 L Hgb 10.3 L Hct 31.6 L MCV 105 H MCH 34.0 H MCHC 32.5 RDW 18.0 H Plt Count 204 Sodium Cancelled Potassium Cancelled Chloride Cancelled Carbon Dioxide Cancelled Anion Gap Cancelled BUN Cancelled Creatinine Cancelled Est GFR ( Amer) Cancelled Est GFR (Non-Af Amer) Cancelled Glucose Cancelled Calcium Cancelled Stool Occult Blood NEGATIVE 01/17/19 01/17/19 06:40 07:45 Troponin I 0.047 NT-Pro-B Natriuret Pep Cancelled [id number] H Impressions: Chest X-Ray 01/17/19 06:06 IMPRESSION: 1. No significant change when compared to the prior study. 2. Stable volume loss in the left lung base which may be due to chronic pleural thickening, pleural fluid and/or atelectasis. 3. Stable cardiomegaly. Assessment & Plan - Diagnosis (1) End stage renal disease on dialysis Is this a current diagnosis for this admission?: Yes Plan: We will do dialysis today for 3 hours, using the patient's AV fistula, with 2 potassium bath, blood flow rate of 450 mL per minute, dialysate flow rate of 800 mL per minute, ultrafiltration 1 to 1.5 L only as tolerated, no heparin and no Procrit. Dialysis plan discussed with her dialysis nurse. Patient will be monitored throughout dialysis treatment. (2) Hyperkalemia Is this a current diagnosis for this admission?: Yes Plan: Resolved with dialysis. (3) Volume overload Qualifiers: Hypervolemia type: unspecified Qualified Code(s): E87.70 - Fluid overload, unspecified Is this a current diagnosis for this admission?: Yes Plan: Improving clinically. (4) Anemia in chronic kidney disease Is this a current diagnosis for this admission?: Yes Plan: Hemoglobin dropped from 11 to 8.6 last week and now 10.3. Stool for occult blood negative. Does not need Procrit today. (5) Hypotension Qualifiers: Hypotension type: other hypotension type Qualified Code(s): I95.89 - Other hypotension Is this a current diagnosis for this admission?: Yes Plan: Chronic. Adjust ultrafiltration during dialysis. (6) Diabetes mellitus type 2 in obese Is this a current diagnosis for this admission?: Yes (7) Noncompliance Is this a current diagnosis for this admission?: Yes Plan: Discussed importance of being compliant with her dialysis treatment. Since the patient has some social issues regarding transportation going to and from dialysis from her home I think patient may be better off with correction facility home placement. Defer that to Dr. Adame. - Time Time with patient: 15-25 minutes
[2019-01-22 09:39] LABS: ANION GAP 8 (5-19); BLOOD UREA NITROGEN 36 mg/dL (7-20); CALCIUM 8.3 mg/dL (8.4-10.2); CARBON DIOXIDE 31 mmol/L (22-30); CHLORIDE 99 mmol/L (98-107); GLUCOSE 85 mg/dL (75-110); POTASSIUM 4.3 mmol/L (3.6-5.0); SODIUM 137.9 mmol/L (137-145)
[2019-01-22] MEDS ORDERED: EPOETIN ALFA-EPBX 10,000 UNIT in SYRINGE, DISPOSABLE, 1 EACH IV PRN (09:43)
[2019-01-22] MEDS ORDERED: EPOETIN ALFA-EPBX 10,000 UNIT/ML VIAL (RENAL) IV PRN (10:18)
--- NOTE | 2019-01-22 20:41 | PDOC PROGRESS REPORT ---
Subjective Progress Note for:: 01/22/19 Subjective:: Patient had dialysis today, the plan is to transfer to long-term Reason For Visit: METABOLIC ACIDOSIS Physical Exam Vital Signs: Temp Pulse Resp BP Pulse Ox 99.1 F 68 19 147/53 H 95 01/22/19 17:02 01/22/19 17:02 01/22/19 17:02 01/22/19 17:02 01/22/19 17:02 Intake & Output 01/21/19 01/22/19 01/23/19 06:59 06:59 06:59 Intake Total 480 510 387 Output Total 0 0 1800 Balance 480 510 -1413 Weight 57.1 kg 68.1 kg General appearance: PRESENT: no acute distress Eye exam: PRESENT: PERRLA Respiratory exam: PRESENT: clear to auscultation debbie Cardiovascular exam: PRESENT: +S1, +S2 GI/Abdominal exam: PRESENT: soft Neurological exam: PRESENT: alert Results Laboratory Results: 01/22/19 06:20 01/22/19 07:55 01/22/19 01/22/19 01/22/19 06:20 06:20 07:55 WBC 4.9 RBC 3.02 L Hgb 10.3 L Hct 31.6 L MCV 105 H MCH 34.0 H MCHC 32.5 RDW 18.0 H Plt Count 204 Sodium Cancelled 137.9 Potassium Cancelled 4.3 Chloride Cancelled 99 Carbon Dioxide Cancelled 31 H Anion Gap Cancelled 8 BUN Cancelled 36 H Creatinine Cancelled 11.32 H Est GFR ( Amer) Cancelled 4 L Est GFR (Non-Af Amer) Cancelled 3 L Glucose Cancelled 85 Calcium Cancelled 8.3 L 01/17/19 01/17/19 06:40 07:45 Troponin I 0.047 NT-Pro-B Natriuret Pep Cancelled [id number] H Impressions: Chest X-Ray 01/17/19 06:06 IMPRESSION: 1. No significant change when compared to the prior study. 2. Stable volume loss in the left lung base which may be due to chronic pleural thickening, pleural fluid and/or atelectasis. 3. Stable cardiomegaly. Assessment & Plan - Diagnosis (1) Hyperkalemia Is this a current diagnosis for this admission?: Yes Plan: corrected (2) Metabolic acidosis Is this a current diagnosis for this admission?: Yes (3) End stage chronic kidney disease Is this a current diagnosis for this admission?: Yes (4) Volume overload Qualifiers: Hypervolemia type: unspecified Qualified Code(s): E87.70 - Fluid overload, unspecified Is this a current diagnosis for this admission?: Yes (5) T2DM (type 2 diabetes mellitus) Qualifiers: Diabetes mellitus ocean transportation intermediary insulin use: without ocean transportation intermediary use Diabetes mellitus complication status: with kidney complications Diabetes mellitus complication detail: with chronic kidney disease Chronic kidney disease stage: on chronic dialysis Qualified Code(s): E11.22 - Type 2 diabetes mellitus with diabetic chronic kidney disease; N18.6 - End stage renal disease; Z99.2 - Dependence on renal dialysis Is this a current diagnosis for this admission?: Yes
[2019-01-22] MEDS: ATORVASTATIN CALCIUM 80 MG TABLET PO SCH (21:47)
[2019-01-23] MEDS: HEPARIN SOD (PORCINE) 5,000 UNIT/ML 1 ML SYRINGE SUBCUT SCH ×3 (05:46→22:21)
[2019-01-23] MEDS: CLONIDINE HCL 0.2 MG TABLET PO SCH ×2 (05:46→17:25)
[2019-01-23] MEDS: LEVOTHYROXINE SODIUM 0.15 MG TABLET PO SCH (05:46)
[2019-01-23] MEDS: AMLODIPINE BESYLATE 10 MG TABLET PO SCH (10:28)
[2019-01-23] MEDS: ASPIRIN 81 MG TABLET, CHEWABLE PO SCH (10:28)
[2019-01-23] MEDS: ATORVASTATIN CALCIUM 80 MG TABLET PO SCH (22:21)
--- NOTE | 2019-01-23 22:30 | PDOC PROGRESS REPORT ---
Subjective Progress Note for:: 01/23/19 Subjective:: Patient continues to refuse medication for blood pressure Reason For Visit: METABOLIC ACIDOSIS Physical Exam Vital Signs: Temp Pulse Resp BP Pulse Ox 98.7 F 77 16 153/61 H 93 01/23/19 16:00 01/23/19 19:00 01/23/19 16:00 01/23/19 16:00 01/23/19 16:00 Intake & Output 01/22/19 01/23/19 01/24/19 06:59 06:59 06:59 Intake Total 510 937 337 Output Total 0 1800 Balance 510 -863 337 Weight 68.1 kg 68.7 kg General appearance: PRESENT: no acute distress Eye exam: PRESENT: PERRLA Cardiovascular exam: PRESENT: +S1, +S2 GI/Abdominal exam: PRESENT: soft Neurological exam: PRESENT: alert Results Laboratory Results: 01/22/19 06:20 01/22/19 07:55 01/17/19 01/17/19 06:40 07:45 Troponin I 0.047 NT-Pro-B Natriuret Pep Cancelled [id number] H Impressions: Chest X-Ray 01/17/19 06:06 IMPRESSION: 1. No significant change when compared to the prior study. 2. Stable volume loss in the left lung base which may be due to chronic pleural thickening, pleural fluid and/or atelectasis. 3. Stable cardiomegaly. Assessment & Plan - Diagnosis (1) Hyperkalemia Is this a current diagnosis for this admission?: Yes (2) Metabolic acidosis Is this a current diagnosis for this admission?: Yes (3) End stage chronic kidney disease Is this a current diagnosis for this admission?: Yes (4) Volume overload Qualifiers: Hypervolemia type: unspecified Qualified Code(s): E87.70 - Fluid overload, unspecified Is this a current diagnosis for this admission?: Yes (5) T2DM (type 2 diabetes mellitus) Qualifiers: Diabetes mellitus rodent exterminator insulin use: without rodent exterminator use Diabetes mellitus complication status: with kidney complications Diabetes mellitus complication detail: with chronic kidney disease Chronic kidney disease stage: on chronic dialysis Qualified Code(s): E11.22 - Type 2 diabetes mellitus with diabetic chronic kidney disease; N18.6 - End stage renal disease; Z99.2 - Dependence on renal dialysis Is this a current diagnosis for this admission?: Yes
[2019-01-24] MEDS ORDERED: NORMAL SALINE 1000 ML 1,000 ML IV PRN (05:00)
[2019-01-24] MEDS: CLONIDINE HCL 0.2 MG TABLET PO SCH ×2 (06:12→17:25)
[2019-01-24] MEDS: HEPARIN SOD (PORCINE) 5,000 UNIT/ML 1 ML SYRINGE SUBCUT SCH ×2 (06:12→13:54)
[2019-01-24] MEDS: LEVOTHYROXINE SODIUM 0.15 MG TABLET PO SCH (06:12)
[2019-01-24 06:17] LABS: MEAN CORPUSCULAR HGB CONC 32.4 g/dL (32.0-36.0); MEAN CORPUSCULAR VOLUME 105 fl (80-97); PLATELET COUNT 186 10^3/uL (150-450); RED BLOOD COUNT 2.88 10^6/uL (3.72-5.28); RED CELL DISTRIBUTION WIDTH 18.1 % (11.5-14.0)
[2019-01-24 06:23] LABS: HEMATOCRIT 31.8 % (36.0-47.0); HEMOGLOBIN 10.3 g/dL (12.0-15.5)
[2019-01-24 06:27] LABS: ANION GAP 7 (5-19); BLOOD UREA NITROGEN 22 mg/dL (7-20); CARBON DIOXIDE 34 mmol/L (22-30); CHLORIDE 99 mmol/L (98-107); POTASSIUM 3.9 mmol/L (3.6-5.0); SODIUM 139.5 mmol/L (137-145)
[2019-01-24 06:32] LABS: GLUCOSE 57 mg/dL (75-110)
[2019-01-24] MEDS ORDERED: DEXTROSE 50%-WATER 25 GM/50 ML DISP.SYRIN IV ONE (06:33)
[2019-01-24] MEDS ORDERED: DEXTROSE 40% GEL 15 GM TUBE ONE (06:50)
[2019-01-24] MEDS: AMLODIPINE BESYLATE 10 MG TABLET PO SCH (10:38)
[2019-01-24] MEDS: ASPIRIN 81 MG TABLET, CHEWABLE PO SCH (11:20)
--- NOTE | 2019-01-24 13:42 | EKG REPORT ---
SEVERITY:- ABNORMAL ECG - SINUS RHYTHM LOW VOLTAGE THROUGHOUT BORDERLINE R WAVE PROGRESSION, ANTERIOR LEADS, CONSIDER ANTERIOR ID, OLD. BORDERLINE T ABNORMALITIES, DIFFUSE LEADS BORDERLINE PROLONGED QT INTERVAL : Confirmed by: Yury Ramirez MD 24-Jan-2019 13:40:59
[2019-01-24 14:10] LABS: HEMATOCRIT 30.3 % (36.0-47.0); HEMOGLOBIN 9.7 g/dL (12.0-15.5); MEAN CORPUSCULAR HGB CONC 32.1 g/dL (32.0-36.0); MEAN CORPUSCULAR VOLUME 106 fl (80-97); PLATELET COUNT 177 10^3/uL (150-450); RED BLOOD COUNT 2.86 10^6/uL (3.72-5.28); RED CELL DISTRIBUTION WIDTH 18.6 % (11.5-14.0); WHITE BLOOD COUNT 6.5 10^3/uL (4.0-10.5)
[2019-01-24 14:21] LABS: ANION GAP 6 (5-19); BLOOD UREA NITROGEN 11 mg/dL (7-20); CARBON DIOXIDE 31 mmol/L (22-30); CHLORIDE 101 mmol/L (98-107); GLUCOSE 110 mg/dL (75-110); POTASSIUM 3.9 mmol/L (3.6-5.0); SODIUM 138.3 mmol/L (137-145)
[2019-01-24 14:43] VITALS: BP 122/50
--- NOTE | 2019-01-24 16:30 | PDOC TRANSFER SUMMARY ---
General - Admit/Disc Date/PCP Admission Date/Primary Care Provider: 01/17/19 08:49 JOSE MANUEL MIX MD Discharge Date: 01/24/19 - Discharge Diagnosis (1) Hyperkalemia Is this a current diagnosis for this admission?: Yes (2) Metabolic acidosis Is this a current diagnosis for this admission?: Yes (3) End stage chronic kidney disease Is this a current diagnosis for this admission?: Yes (4) Volume overload Is this a current diagnosis for this admission?: Yes (5) T2DM (type 2 diabetes mellitus) Is this a current diagnosis for this admission?: Yes - Additional Information Discharge Activity: Activity As Tolerated Home Medications: RX: Amlodipine Besylate [Norvasc 10 mg Tablet] 10 mg PO DAILY 12/22/18 RX: Aspirin [Micheal Chewable Aspirin] 81 mg PO DAILY 12/22/18 RX: Atorvastatin Calcium [Lipitor 80 mg Tablet] 80 mg PO DAILY 12/22/18 RX: Clonidine HCl [Catapres 0.2 mg Tablet] 0.2 mg PO Q12 12/22/18 RX: Levothyroxine Sodium 150 mcg PO Q6AM 12/22/18 History of Present Illness Admission Date/PCP: 01/17/19 08:49 JOSE MANUEL MIX MD History of Present Illness: LOVELY ESPAÑA is female,She came to the emergency room for evaluation of generalized body weakness, she was recently admitted in this hospital on 01/07/2019, she has end-stage renal disease on maintenance hemodialysis. She gets dialysis on Wednesdays and Fridays, she has not been to dialysis in over 2 weeks because essentially for the fact that the family is dysfunctional. She stated that her children would not take her to outpatient dialysis center and the person that has been taking her to dialysis refused to take her to dialysis because of her home situation, her home is very filthy.She was very acidotic with hyperkalemia while she needed emergency hemodialysis, she has other comorbid conditions including type 2 diabetes mellitus, legally blind, legally deaf, she may need to be placed in a [facility] home. Hospital Course Hospital Course: .Patient was admitted for the management of acute metabolic acidosis, hyperkalem ia with a background of end-stage renal disease on maintenance hemodialysisShe was seen by nephrology, she underwent hemodialysis in the hospital. She is had of hearing, she is also legally blind.Part of the problem with this patient is poor social support, it is best for to stay in the longterm long-term Physical Exam Vital Signs: Temp Pulse Resp BP Pulse Ox 97.3 F 74 17 122/50 L 97 01/24/19 11:56 01/24/19 13:59 01/23/19 20:02 01/24/19 11:56 01/24/19 00:03 Intake & Output 01/23/19 01/24/19 01/25/19 06:59 06:59 06:59 Intake Total 937 337 Output Total 1800 660 Balance -863 337 -660 Weight 68.4 kg General appearance: PRESENT: no acute distress Respiratory exam: PRESENT: clear to auscultation debbie Cardiovascular exam: PRESENT: +S1, +S2 GI/Abdominal exam: PRESENT: soft Results Laboratory Results: 01/24/19 13:32 01/24/19 13:32 01/24/19 01/24/19 01/24/19 05:54 05:54 13:32 WBC 4.0 6.5 RBC 2.88 L 2.86 L Hgb 10.3 L 9.7 L Hct 31.8 L 30.3 L MCV 105 H 106 H MCH 34.0 H 34.0 H MCHC 32.4 32.1 RDW 18.1 H 18.6 H Plt Count 186 177 Sodium 139.5 Potassium 3.9 Chloride 99 Carbon Dioxide 34 H Anion Gap 7 BUN 22 H Creatinine 9.64 H Est GFR ( Amer) 5 L Est GFR (Non-Af Amer) 4 L Glucose 57 L Calcium 8.0 L 01/24/19 13:32 WBC RBC Hgb Hct MCV MCH MCHC RDW Plt Count Sodium 138.3 Potassium 3.9 Chloride 101 Carbon Dioxide 31 H Anion Gap 6 BUN 11 Creatinine 5.62 H Est GFR ( Amer) 9 L Est GFR (Non-Af Amer) 7 L Glucose 110 Calcium 8.0 L 01/17/19 01/17/19 06:40 07:45 Troponin I 0.047 NT-Pro-B Natriuret Pep Cancelled [id number] H Impressions: Chest X-Ray 01/17/19 06:06 IMPRESSION: 1. No significant change when compared to the prior study. 2. Stable volume loss in the left lung base which may be due to chronic pleural thickening, pleural fluid and/or atelectasis. 3. Stable cardiomegaly. Qualifiers - * PATIENT BEING DISCHARGED WITH ANY OF THE FOLLOWING DIAGNOSIS: No VTE patient discharged on overlapping Therapy?: No Reason(s) for not prescribing Overlap Therapy:: Not indicated Stroke Pt being discharged on Anti-thrombolytic therapy?: No Reason(s) for not prescribing Anti-thrombolytic therapy:: Not indicated Stroke Pt being discharged on Anti-coagulation therapy?: No Reason(s) for not prescribing Anti-coagulation therapy:: Not indicated Stroke Pt being discharged on Statins?: No Reason(s) for not prescribing Statins therapy:: Not indicated CO Pt being discharged on Aspirin therapy?: No Reason(s) for not prescribing Aspirin therapy:: Not indicated CO Pt being discharged on Statins?: No Reason(s) for not prescribing Statin therapy:: Not indicated CO Pt discharged ACEI/ARBS?: No Reason(s) for not prescribing ACEI/ARBS:: Not indicated Acute Heart Failure - Is this a Heart Failure Patient?: No b) Discharges on ARB?: N/A-Discharged on ARNI e) For LVEF <35%, discharged on Aldosterone antagonist?: N/A (LVEF > or = 35%)
--- NOTE | 2019-01-24 17:36 | PDOC PROGRESS REPORT ---
Subjective Progress Note for:: 01/24/19 Subjective:: I saw the patient during dialysis treatment this morning. It is really very difficult to communicate with her because she is very hard of hearing and unable to see. She was initially stable during dialysis treatment when I am seeing her. Her oral intake while here in the hospital is not really much so we are getting minimal ultrafiltration. After 2.5 hours of dialysis the patient became hypotensive and bradycardic so we needed to terminate dialysis treatment at that point. Reason For Visit: METABOLIC ACIDOSIS Physical Exam Vital Signs: Temp Pulse Resp BP Pulse Ox 98.4 F 63 17 187/63 H 97 01/24/19 00:03 01/24/19 02:00 01/23/19 20:02 01/24/19 00:03 01/24/19 00:03 Intake & Output 01/23/19 01/24/19 01/25/19 06:59 06:59 06:59 Intake Total 937 337 Output Total 1800 Balance -863 337 Weight 68.4 kg Vitals during dialysis:, Blood flow rate of 400 mL/min and dialysate flow rate of 800 mL/min. Exam: General appearance: PRESENT: no acute distress, cooperative, well-developed, well-nourished Head exam: PRESENT: atraumatic, normocephalic; hard of hearing, improved facial swelling Eye exam: PRESENT: conjunctiva mildly pale, PERRLA. Legally blind ABSENT: scleral icterus Neck exam: ABSENT: JVD Respiratory exam: PRESENT: Normal breath sounds. ABSENT: crackles, rales, rhonchi, unlabored, wheezes Cardiovascular exam: PRESENT: Regular rate rhythm -+S1, +S2. ABSENT: diastolic murmur, systolic murmur GI/Abdominal exam: PRESENT: normal bowel sounds, soft. ABSENT: guarding, mass, tenderness Extremities exam: Decreased grade 1 lower extremity pitting edema on lower third of the leg and feet Neurological exam: PRESENT: alert, awake, oriented to person, place and time. Skin exam: PRESENT: dry, warm, Results Laboratory Results: 01/24/19 05:54 01/24/19 05:54 01/24/19 01/24/19 05:54 05:54 WBC 4.0 RBC 2.88 L Hgb 10.3 L Hct 31.8 L MCV 105 H MCH 34.0 H MCHC 32.4 RDW 18.1 H Plt Count 186 Sodium 139.5 Potassium 3.9 Chloride 99 Carbon Dioxide 34 H Anion Gap 7 BUN 22 H Creatinine 9.64 H Est GFR ( Amer) 5 L Est GFR (Non-Af Amer) 4 L Glucose 57 L Calcium 8.0 L 01/17/19 01/17/19 06:40 07:45 Troponin I 0.047 NT-Pro-B Natriuret Pep Cancelled [id number] H Impressions: Chest X-Ray 01/17/19 06:06 IMPRESSION: 1. No significant change when compared to the prior study. 2. Stable volume loss in the left lung base which may be due to chronic pleural thickening, pleural fluid and/or atelectasis. 3. Stable cardiomegaly. Assessment & Plan - Diagnosis (1) End stage renal disease on dialysis Is this a current diagnosis for this admission?: Yes Plan: We will do dialysis today for 3 hours, using the patient's AV fistula, with 3 potassium bath, blood flow rate of 400 mL per minute, dialysate flow rate of 800 mL per minute, ultrafiltration 1 to 1.5 L as tolerated only, no heparin and no Procrit. Ultrafiltration will be adjusted accordingly depending on her blood pressure. Discussed dialysis order with patient's dialysis nurse. (2) Hyperkalemia Is this a current diagnosis for this admission?: Yes Plan: Resolved with dialysis. (3) Volume overload Qualifiers: Hypervolemia type: unspecified Qualified Code(s): E87.70 - Fluid overload, unspecified Is this a current diagnosis for this admission?: Yes Plan: Improving clinically. (4) Anemia in chronic kidney disease Is this a current diagnosis for this admission?: Yes Plan: Hemoglobin dropped from 11 to 8.6 last week and now 9.7. Stool for occult blood negative. Does not need Procrit today. (5) Hypotension Qualifiers: Hypotension type: other hypotension type Qualified Code(s): I95.89 - Other hypotension Is this a current diagnosis for this admission?: Yes Plan: Chronic. Adjust ultrafiltration during dialysis. (6) Diabetes mellitus type 2 in obese Is this a current diagnosis for this admission?: Yes (7) Noncompliance Is this a current diagnosis for this admission?: Yes Plan: Discussed importance of being compliant with her dialysis treatment. Since the patient has some social issues regarding transportation going to and from dialysis from her home I think patient may be better off with group home facility home placement. Defer that to Dr. Adame. - Notes Notes: From nephrology standpoint getting the patient can be discharged home or transferred to group home facility. - Time Time with patient: 15-25 minutes
== END 2019-01-24 17:30 | DRG 640 ==
LOC: ER 05:36 → OBSVTOIN 08:49 → EH 08:49 → 4N 15:32
PROVIDERS: ADMIT Internal Medicine; ATTEND Internal Medicine
PROC: 5A1D70Z Performance of Urinary Filtration, Intermittent, Less than 6 Hours Per Day (ICD-10-PCS; principal; 2019-01-19)
DX: E87.5 Hyperkalemia (principal); N18.6 End stage renal disease; I13.2 Hypertensive heart and chronic kidney disease with heart failure and with stage 5 chronic kidney disease, or end stage renal disease; E87.2 Acidosis; I50.9 Heart failure, unspecified; E11.22 Type 2 diabetes mellitus with diabetic chronic kidney disease; D63.1 Anemia in chronic kidney disease; I95.89 Other hypotension; E87.70 Fluid overload, unspecified; E03.9 Hypothyroidism, unspecified; E78.5 Hyperlipidemia, unspecified; H54.8 Legal blindness, as defined in USA; H91.8X9 Other specified hearing loss, unspecified ear; I25.2 Old myocardial infarction; Z99.2 Dependence on renal dialysis; Z86.73 Personal history of transient ischemic attack (TIA), and cerebral infarction without residual deficits; Z95.5 Presence of coronary angioplasty implant and graft; Z63.8 Other specified problems related to primary support group; Z91.15 Patient's noncompliance with renal dialysis
CPT/HCPCS: 36415; 71046; 80048; 80053; 82272; 82803; 82962; 83880; 84484; 85025; 85027; 93005; 93010; 99285; J1644; J3490; Q5105

== ENCOUNTER 2019-02-05 16:46 | Emergency (ER) | payer MEDICARE ==
--- NOTE | 2019-02-05 17:12 | ER Document Report ---
ED General - General Chief Complaint: Dialysis Shunt Problem Stated Complaint: BLEEDING FROM FISTULA Time Seen by Provider: 02/05/19 17:12 Primary Care Provider: JOSE MANUEL MIX MD [Primary Care Provider] - Follow up in 3-5 days Notes: Patient is a 78-year-old female with end-stage renal disease on dialysis that presents to the emergency department for chief complaint of bleeding dialysis fistula. Patient was at dialysis today, she finished it, and they removed her needles, and she had persistent bleeding from her lower site, they tried applying pressure but it continue to bleed so they called EMS. EMS applied a pressure dressing, she has not noticed any bleeding through the dressing. She denies having any pain associated with this, denies any recent chest pain, shortness of breath, nausea, vomiting or abdominal pain. She states she is noticed some swelling in her right arm and both her legs, but not terribly worse than her usual baseline swelling that she gets. She states sometimes have difficulty pulling fluid off her because her blood pressure drops, they have to do it over multiple dialysis sessions. Denies any other complaints at this time. Past Medical History: End-stage renal disease on dialysis, hypertension, hyperlipidemia Past Surgical History: Left upper extremity AV fistula Social History: Denies current tobacco, alcohol or drug use., Currently at [facility] for rehab Family History: Reviewed and noncontributory for presenting illness Allergies: Reviewed, see documented allergy list. REVIEW OF SYSTEMS: Other than noted above, the 12 point review of systems was reviewed with the patient and were negative, all pertinent findings are included in the HPI. PHYSICAL EXAMINATION: Vital signs reviewed, nursing noted reviewed. GENERAL: Elderly, obese female HEAD: Atraumatic, normocephalic. EYES: Eyes appear normal, extraocular movements intact, sclera anicteric, conjunctiva are normal. ENT: nares patent, oropharynx clear without exudates. Moist mucous membranes. NECK: Normal range of motion, supple without lymphadenopathy LUNGS: Breath sounds clear to auscultation bilaterally and equal. No wheezes rales or rhonchi. HEART: Regular rate and rhythm without murmurs ABDOMEN: Soft, nontender, normoactive bowel sounds. No rebound, guarding, or rigidity. No masses appreciated. EXTREMITIES: Left upper extremity AV fistula, positive bruit, positive thrill they have puncture sites from her dialysis session today, have healed over, there is no active bleeding at this time. Patient does have bilateral lower extremity edema, 2+ to the proximal tibias, the rest of her extremity exam is grossly unremarkable. NEUROLOGICAL: No focal neurological deficits. Moves all extremities spontaneously Motor and sensory grossly intact on exam. PSYCH: Normal mood, normal affect. SKIN: Warm, Dry, normal turgor, no rashes or lesions noted on exposed skin TRAVEL OUTSIDE OF THE [place] IN LAST 30 DAYS: No - Related Data Allergies/Adverse Reactions: adhesive tape Allergy (Intermediate, Verified 01/17/19 07:40) Generalized rash No Known Drug Allergies Allergy (Verified 01/17/19 07:40) Past Medical History - Social History Smoking Status: Never Smoker Family History: CAD, Hypertension, Other - Kidney disease - Past Medical History Cardiac Medical History: Reports: Hx Heart Attack - 2016; POSSIBLE CARDIAC STENT PLACEMENT "TO KEEP THE VALVE OPEN", Hx Hypercholesterolemia, Hx Hypertension - HX. OF, CURRENTLY OFF HER HTN MEDS DUE TO LOW BP Denies: Hx Coronary Artery Disease Pulmonary Medical History: Reports: Hx Pneumonia - NOVEMBER 2017 Denies: Hx Asthma, Hx Bronchitis, Hx COPD, Hx Tuberculosis Neurological Medical History: Reports: Hx Cerebrovascular Accident - JUNE 2010, DENIES DEFICITS. Denies: Hx Seizures Endocrine Medical History: Reports: Hx Diabetes Mellitus Type 2, Hx Hypothyroidism Renal/ Medical History: Reports: Hx End Stage Renal Disease, Hx Peritoneal Dialysis Musculoskeletal Medical History: Reports Hx Arthritis Past Surgical History: Reports: Hx Cardiac Catheterization - Possible cardiac catheterization with stent placement. Records are pending, Hx Cholecystectomy. Denies: Hx Pacemaker - Immunizations Hx Diphtheria, Pertussis, Tetanus Vaccination: Yes - PATIENT UNSURE Hx Pneumococcal Vaccination: 04/19/12 Physical Exam - Vital signs Vitals: Temp Pulse Resp BP Pulse Ox 97.8 F 65 15 139/53 H 100 02/05/19 16:53 02/05/19 16:53 02/05/19 16:53 02/05/19 16:53 02/05/19 16:53 Course - Re-evaluation Re-evalutation: Patient seen and examined vital signs reviewed. Patient was evaluated and treated as appropriate for the patient's presenting symptoms and complaint, with consideration of any critical or life threatening conditions that may be associated with their obtained history and exam as noted above. Patient was treated with compression dressing in place by EMS, this was removed, patient did not have any further bleeding, she was monitored, no return of bleeding from her AV fistula, at this point I felt the patient can be discharged home to the [facility] she is currently getting rehab at, patient was agreeable and discharged. Plan of care was discussed with the patient at this point, after careful consideration I feel that that patient can be discharged from the emergency department, the patient was educated treatments and reasons to return to the emergency department based on their presumed diagnosis as noted above, they were advised to followup with a primary care physician in 2-3 days. Patient was agreeable to plan of care. *Note is created using voice recognition software and may contain spelling, syntax or grammatical errors. - Vital Signs Vital signs: Temp Pulse Resp BP Pulse Ox 97.8 F 65 15 139/53 H 100 02/05/19 16:53 02/05/19 16:53 02/05/19 16:53 02/05/19 16:53 02/05/19 16:53 Discharge - Discharge Clinical Impression: Bleeding from dialysis shunt Qualifiers: Encounter type: initial encounter Qualified Code(s): T82.838A - Hemorrhage due to vascular prosthetic devices, implants and grafts, initial encounter Condition: Stable Disposition: HOME-SNF (ED ONLY) Instructions: Kidney Failure ([facility]) Referrals: JOSE MANUEL MIX MD [Primary Care Provider] - Follow up in 3-5 days
[2019-02-06 02:05] VITALS: BP 104/48
== END 2019-02-06 02:03 ==
LOC: ER 16:46
DX: T82.838A Hemorrhage due to vascular prosthetic devices, implants and grafts, initial encounter (principal); Y84.1 Kidney dialysis as the cause of abnormal reaction of the patient, or of later complication, without mention of misadventure at the time of the procedure; I12.0 Hypertensive chronic kidney disease with stage 5 chronic kidney disease or end stage renal disease; N18.6 End stage renal disease; E11.22 Type 2 diabetes mellitus with diabetic chronic kidney disease; Z99.2 Dependence on renal dialysis; E66.9 Obesity, unspecified; Z91.048 Other nonmedicinal substance allergy status
CPT/HCPCS: 99284

== ENCOUNTER 2019-04-09 16:49 | Emergency (ER) | payer MEDICARE ==
[2019-04-09 17:30] VITALS: BP 137/63
--- NOTE | 2019-04-09 17:48 | ER Document Report ---
HPI - HPI Patient complains to provider of: fistula site bleeding Time Seen by Provider: 04/09/19 17:23 Pain Level: Denies Context: 78-year-old female presents from dialysis for fistula that would not stop bleeding. She was brought in by EMS who reinforced it. Patient denies any dizziness or lightheadedness, denies saturating any dressings with blood, denies acute shortness of breath or chest pain. - REPRODUCTIVE Reproductive: DENIES: : Past Medical History - Social History Smoking Status: Unknown if Ever Smoked Family History: CAD, Hypertension, Other - Kidney disease Patient has suicidal ideation: No Patient has homicidal ideation: No - Past Medical History Cardiac Medical History: Reports: Hx Heart Attack - 2017; POSSIBLE CARDIAC STENT PLACEMENT "TO KEEP THE VALVE OPEN", Hx Hypercholesterolemia, Hx Hypertension - HX. OF, CURRENTLY OFF HER HTN MEDS DUE TO LOW BP Denies: Hx Coronary Artery Disease Pulmonary Medical History: Reports: Hx Pneumonia - NOVEMBER 2017 Denies: Hx Asthma, Hx Bronchitis, Hx COPD, Hx Tuberculosis Neurological Medical History: Reports: Hx Cerebrovascular Accident - JUNE 2010, DENIES DEFICITS. Denies: Hx Seizures Endocrine Medical History: Reports: Hx Diabetes Mellitus Type 2, Hx Hypothyroidism Renal/ Medical History: Reports: Hx End Stage Renal Disease, Hx Peritoneal Dialysis Musculoskeletal Medical History: Reports Hx Arthritis Past Surgical History: Reports: Hx Cardiac Catheterization - Possible cardiac catheterization with stent placement. Records are pending, Hx Cholecystectomy. Denies: Hx Pacemaker - Immunizations Hx Diphtheria, Pertussis, Tetanus Vaccination: Yes - PATIENT UNSURE Hx Pneumococcal Vaccination: 04/19/12 Vertical Provider Document - CONSTITUTIONAL Notes: PHYSICAL EXAMINATION: Reviewed vital signs and charting by RN GENERAL: Alert, interacts well. No acute distress. HEAD: Normocephalic, atraumatic. EYES: Pupils equal and round. Extraocular movements intact. ENT: Oral mucosa moist, tongue midline. NECK: Full range of motion. Trachea midline. LUNGS: Clear to auscultation bilaterally, no wheezes, rales, or rhonchi. No respiratory distress. HEART: Regular rate and rhythm. No murmur EXTREMITIES: Moves all 4 extremities spontaneously. No edema, No cyanosis. Left upper extremity AV fistula, positive bruit, positive thrill they have puncture sites from her dialysis session today, have healed over, there is no active bleeding at this time. PSYCH: Normal affect, normal mood. SKIN: Warm, dry, normal turgor. No rashes or lesions noted. - INFECTION CONTROL TRAVEL OUTSIDE OF THE [place] IN LAST 30 DAYS: No Course - Re-evaluation Re-evalutation: 04/09/19 17:49 Overall well-appearing in no acute distress, mentating appropriately. Inspected the fistula site and there is no bleeding at all and there is a positive thrill and bruit. At this time I will give patient follow-up with Dr. Ronaldo Gomez whom she states she needs to follow-up with. Vital signs are within normal limits, nursing notes reviewed. She is stable for discharge. - Vital Signs Vital signs: Temp Pulse Resp BP Pulse Ox 97.9 F 65 17 137/63 H 99 04/09/19 17:29 04/09/19 17:29 04/09/19 17:29 04/09/19 17:29 04/09/19 17:29 Discharge - Discharge Clinical Impression: Hemorrhage due to vascular prosthetic devices, implants and grafts, subsequent encounter Condition: Good Disposition: HOME, SELF-CARE Additional Instructions: Your fistula is no longer bleeding. The dressing did not have any blood on it this is all very reassuring. Please follow-up with Dr. Ronaldo Gomez as you mentioned to see if any modifications need to be made. Please return to the emergency department if you have uncontrolled bleeding, you develop dizziness or lightheadedness, passout, have severe shortness of breath or severe chest pain, or you have any other concerning symptoms. Referrals: JOSE MANUEL MIX MD [Primary Care Provider] - Follow up as needed
== END 2019-04-09 18:02 | disposition home or self-care (01) ==
LOC: ER 16:49
DX: T82.838A Hemorrhage due to vascular prosthetic devices, implants and grafts, initial encounter (principal); E78.00 Pure hypercholesterolemia, unspecified; E11.22 Type 2 diabetes mellitus with diabetic chronic kidney disease; I12.0 Hypertensive chronic kidney disease with stage 5 chronic kidney disease or end stage renal disease; N18.6 End stage renal disease; Z99.2 Dependence on renal dialysis; Z86.73 Personal history of transient ischemic attack (TIA), and cerebral infarction without residual deficits; Z90.49 Acquired absence of other specified parts of digestive tract; I25.2 Old myocardial infarction
CPT/HCPCS: 99284

== ENCOUNTER 2019-04-17 09:53 | Day surgery (SDC) | payer MEDICARE ==
[2019-04-17 12:31] LABS: HEMATOCRIT 42.3 % (36.0-47.0); HEMOGLOBIN 13.6 g/dL (12.0-15.5); MEAN CORPUSCULAR HEMOGLOBIN 32.7 pg (27.0-33.4); MEAN CORPUSCULAR HGB CONC 32.2 g/dL (32.0-36.0); MEAN CORPUSCULAR VOLUME 102 fl (80-97); PLATELET COUNT 259 10^3/uL (150-450); RED BLOOD COUNT 4.15 10^6/uL (3.72-5.28); RED CELL DISTRIBUTION WIDTH 18.9 % (11.5-14.0); WHITE BLOOD COUNT 4.4 10^3/uL (4.0-10.5)
[2019-04-17] MEDS ORDERED: MIDAZOLAM 2 MG/2 ML INJ ONE (13:37)
[2019-04-17] MEDS ORDERED: LIDOCAINE 0.5% INJ-PF (5 MG/ML) 50 ML SDV ONE (13:37)
[2019-04-17] MEDS ORDERED: FENTANYL CITRATE INJ/PF 100 MCG/2 ML AMPUL ONE (13:38)
[2019-04-17] MEDS ORDERED: HEPARIN SOD (PORCINE) 5,000 UNIT/ML 1 ML VIAL ONE (13:38)
--- NOTE | 2019-04-17 15:41 | RADIOLOGY REPORT (SQ) ---
EXAM DESCRIPTION: FISTULAGRAM W/PLASTY; ANGIOPLASTY BRACHIOCEPHALIC COMPLETED DATE/TIME: 04/17/2019 2:53 pm REASON FOR STUDY: T82.858A T82.858A STENOSIS OF OTHER VASCULAR PROSTH DEV/GRFT, INIT COMPARISON: None. FLUOROSCOPY TIME: 1.7 minutes Spot images saved to PACS. TECHNIQUE: Intra-operative images acquired during surgical procedure to evaluate progress. NUMBER OF IMAGES: 150 LIMITATIONS: None. FINDINGS: Fluoroscopy was provided for intraoperative procedure. Please refer to the operative repo rt for further discussion. IMPRESSION: IMAGE(S) OBTAINED DURING PROCEDURE. COMMENT: Quality ID [id number]: Final reports for procedures using fluoroscopy that document radiation exp osure indices, or exposure time and number of fluorographic images (if radiation exposure indices are not available) Please consult full operative report of the attending physician for description of the procedure. TECHNICAL DOCUMENTATION: JOB ID: [id number] [employer]- All Rights Reserved Reading location - IP/workstation name: [email or web address]
--- NOTE | 2019-04-17 15:41 | RADIOLOGY REPORT (SQ) ---
EXAM DESCRIPTION: FISTULAGRAM W/PLASTY; ANGIOPLASTY BRACHIOCEPHALIC COMPLETED DATE/TIME: 04/17/2019 2:53 pm REASON FOR STUDY: T82.858A T82.858A STENOSIS OF OTHER VASCULAR PROSTH DEV/GRFT, INIT COMPARISON: None. FLUOROSCOPY TIME: 1.7 minutes Spot images saved to PACS. TECHNIQUE: Intra-operative images acquired during surgical procedure to evaluate progress. NUMBER OF IMAGES: 150 LIMITATIONS: None. FINDINGS: Fluoroscopy was provided for intraoperative procedure. Please refer to the operative repo rt for further discussion. IMPRESSION: IMAGE(S) OBTAINED DURING PROCEDURE. COMMENT: Quality ID [id number]: Final reports for procedures using fluoroscopy that document radiation exp osure indices, or exposure time and number of fluorographic images (if radiation exposure indices are not available) Please consult full operative report of the attending physician for description of the procedure. TECHNICAL DOCUMENTATION: JOB ID: [id number] [employer]- All Rights Reserved Reading location - IP/workstation name: [email or web address]
--- NOTE | 2019-04-17 15:43 | Discharge Summary ---
Discharge Summary (SDC) - Discharge Final Diagnosis: #1 malfunctioning AV fistula, left transposed basilic. 2. End-stage renal disease on hemodialysis. 3. Diabetes mellitus. 4. Hypertension. Date of Surgery: 04/17/19 Discharge Date: 04/17/19 Forms: Sedation D/C Instructions, Discharge POC-Surgical Service Treatment or Instructions: Discharge home [after recovery per ASU criteria]. Diet , [renal],as tolerated, when fully awake advance as tolerated. Activities within moderation encouraged. Follow up in my office by appointment on of this week. Call for appointment. Leave wounds [covered], [keep clean and dry, until office visit in 1 week]. Meds per med rec. May shower [in 48 hrs], [try to keep operated area as dry as possible]. Referrals: JOSE MANUEL MIX MD [Primary Care Provider] - Respiratory Treatments at Home: Deep Breathing/Coughing Discharge Activity: Activity As Tolerated Report the Following to Your Physician Immediately: Unusual Bleeding
--- NOTE | 2019-04-17 15:49 | Operative Report ---
Operative Report DATE OF SURGERY: 04/17/19 PREOPERATIVE DIAGNOSIS: #1 malfunctioning AV fistula, left transposed basilic. 2. End-stage renal disease on hemodialysis. 3. Diabetes mellitus. 4. Hypertension. POSTOPERATIVE DIAGNOSIS: #1 malfunctioning AV fistula, left transposed basilic. 2. End-stage renal disease on hemodialysis. 3. Diabetes mellitus. 4. Hypertension. OPERATION: 1. Needle introduction of the fistula. 2. Balloon angioplasty centrally. 3. Balloon angioplasty peripherally. 4. Drug-eluting balloon angioplasty centrally. 5. Angiogram and interpretation. SURGEON: OMKAR QUEVEDO RACK ROOM WORKER: None. ANESTHESIA: Moderate Sedation TISSUE REMOVED OR ALTERED: Not applicable. COMPLICATIONS: None. ESTIMATED BLOOD LOSS: 2 mL. 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 Initially very firm suggestive of cephalad stenosis. 2 stenoses noted on angiogram one at the subclavian and left innominate junction about 80% of the adjacent lumen. Some residual stenosis more than 5%. The second stenosis is peripheral at about 25 cm from the anastomosis. It represents about 80% of the adjacent lumen and was restored with Paps 5% residual stenosis. The fistula was much more normal to palpation suggesting functional improvement. PROCEDURE: PROCEDURE: After verifying the procedure and having obtained informed consent, the patient's left arm was prepared with Chlorhexidine and draped out with sterile linen. Local anesthesia infiltrated. Percutaneous access into the fistula ,[ antegrade], obtained about [6 cm] from the arteriovenous anastomosis using a micro puncture needle followed by micro puncture wire and then a micro puncture catheter. A 0.035 Grant wire was inserted, and over this, an 8 Togolese short introducer was placed.Angiogram demonstrated the aforementioned findings. Angioplasty was elected., this was followed by a [9 -mm] angioplasty balloon . Angioplasty was done at the culprit area at the subclavian innominate junction. A waist was seen in the eliminated. Inflation done using a 3 mils syringe for 2 minutes. This was repeated after angiogram. The balloon was now withdrawn to the peripheral segment and inflated using a 3 mils syringe for 2 minutes. The results as dictated on completion angiogram. A 10 mm drug-eluting balloon was now inserted over the Glidewire and positioned over the central stenosis. It was inflated up to 11 maximiliano using an insufflator and sustained for 4 minutes before deflation. Completion angiogram demonstrated [satisfactory result]. The instrumentation was now withdrawn over a short piece of catheter and a 5-0 Prolene suture. Dressings applied, procedure concluded. Exposure time: 1.7 minutes. Radiation: 6.89 Marva gonzales. Contrast: 5 mils of Isovue-300, low osmolality. DICTATING PHYSICIAN: OMKAR DUNN M.D. cc: OMKAR DUNN M.D. ([id number]) >>
[2019-04-17 16:29] VITALS: BP 159/78
== END 2019-04-17 16:25 | disposition home or self-care (01) ==
LOC: CCL 09:53
PROVIDERS: ATTEND Surgery
DX: T82.858A Stenosis of other vascular prosthetic devices, implants and grafts, initial encounter (principal); Y83.2 Surgical operation with anastomosis, bypass or graft as the cause of abnormal reaction of the patient, or of later complication, without mention of misadventure at the time of the procedure; I12.9 Hypertensive chronic kidney disease with stage 1 through stage 4 chronic kidney disease, or unspecified chronic kidney disease; E11.22 Type 2 diabetes mellitus with diabetic chronic kidney disease; N18.6 End stage renal disease; Z99.2 Dependence on renal dialysis; E03.9 Hypothyroidism, unspecified; K21.9 Gastro-esophageal reflux disease without esophagitis; I25.2 Old myocardial infarction; Z79.82 Long term (current) use of aspirin; Z79.899 Other long term (current) drug therapy; Z79.02 Long term (current) use of antithrombotics/antiplatelets; Z91.81 History of falling; Z95.5 Presence of coronary angioplasty implant and graft
CPT/HCPCS: 36415; 85027; 36907; 36902; C2623; C1752; C1894; Q9967; C1769; J2250; J1644 ×2; A9270 ×2; J3010; J3490

== ENCOUNTER 2019-06-15 17:15 | Emergency (ER) | payer MEDICARE ==
--- NOTE | 2019-06-15 18:57 | ER Document Report ---
Entered by BENNY ENAMORADO SCRIBE 06/15/19 1847 Acting as scribe for:ILYA ALEXANDER IV, MD ED General - General Chief Complaint: Post Surgical Bleeding Stated Complaint: ARM PAIN Time Seen by Provider: 06/15/19 17:26 Primary Care Provider: JOSE MANUEL MIX MD [Primary Care Provider] - Follow up as needed Mode of Arrival: Medic Information source: Patient Notes: This 78-year-old female patient presents to the emergency department today with complaints of her fistula bleeding. Patient finished her dialysis treatment today at [facility] and the bleeding started when she was being removed from the machine. Patient has had this happen multiple times in the past. Patient has no complaints. Patient is hard of hearing and is an incredibly poor historian so history is limited. TRAVEL OUTSIDE OF THE [place] IN LAST 30 DAYS: No - Related Data Allergies/Adverse Reactions: adhesive tape Allergy (Intermediate, Verified 01/17/19 07:40) Generalized rash Past Medical History - General Information source: [facility] Records - Social History Smoking Status: Former Smoker Family History: CAD, Hypertension, Other - Kidney disease Patient has suicidal ideation: No Patient has homicidal ideation: No - Past Medical History Cardiac Medical History: Reports: Hx Coronary Artery Disease - HIGH CHOL, Hx Heart Attack - 2016; POSSIBLE CARDIAC STENT PLACEMENT "TO KEEP THE VALVE OPEN", Hx Hypercholesterolemia, Hx Hypertension - HX. OF, CURRENTLY OFF HER HTN MEDS DUE TO LOW BP Pulmonary Medical History: Reports: Hx Pneumonia - NOVEMBER 2017 Neurological Medical History: Reports: Hx Cerebrovascular Accident - JUNE 2010, DENIES DEFICITS Endocrine Medical History: Reports: Hx Diabetes Mellitus Type 2, Hx Hypothyroidism Renal/ Medical History: Reports: Hx End Stage Renal Disease Musculoskeletal Medical History: Reports Hx Arthritis Past Surgical History: Reports: Hx Cardiac Catheterization, Hx Cholecystectomy - Immunizations Hx Diphtheria, Pertussis, Tetanus Vaccination: Yes - PATIENT UNSURE Hx Pneumococcal Vaccination: 04/19/12 Review of Systems - Review of Systems -: Yes ROS unobtainable due to patient's medical condition Physical Exam - Vital signs Vitals: Temp Pulse Resp BP Pulse Ox 97.8 F 66 16 120/69 96 06/15/19 17:17 06/15/19 17:17 06/15/19 17:17 06/15/19 17:17 06/15/19 17:17 - Notes Notes: Physical Exam: General: Alert, appears well. HEENT: Normocephalic. Atraumatic. PERRLA. Extraocular movements intact. Oropharynx clear. Hard of hearing at baseline. Neck: Supple. Cardiovascular: Fistula in left upper extremity. Fistula appears to be hemostatic with minimal bleeding. Respiratory: Dry non productive cough. No respiratory distress. Abdominal: Normal Inspection. No distension. Extremities: Moves all four extremities. Neurological: Normal cognition. AAOx4. Normal speech. Psychological: Normal affect. Normal Mood. Skin: Warm. Dry. Normal color. Course - Re-evaluation Re-evalutation: 06/15/19 19:16 Patient's wound site is remained hemostatic for 45 minutes with fistula clamp and compact gauze. Will have nurse place a snug but not tight Covan gauze over the combat gauze and will discharge patient with emergency signs and symptoms to look out for, reasons to return to the emergency department. - Vital Signs Vital signs: Temp Pulse Resp BP Pulse Ox 97.8 F 66 16 120/69 96 06/15/19 17:17 06/15/19 17:17 06/15/19 17:17 06/15/19 17:17 06/15/19 17:17 Procedures - Additional Procedures Quick clot w/ clamp Time performed: 18:52 Discharge - Discharge Clinical Impression: Hemorrhage of arteriovenous fistula Condition: Good Disposition: HOME, SELF-CARE Additional Instructions: Return to the Emergency Department without delay if any worse. HOME CARE INSTRUCTIONS & INFORMATION: Thank you for choosing us for your medical needs. We hope you're satisfied with the care you received. After you leave, you must properly care for your problem and, at the same time, observe its progress. Any condition can change. Some illnesses can change rapidly over hours or days. If your condition worsens, return to the Emergency Department or see your physician promptly. ABOUT YOUR X-RAYS AND EKG'S: If you had an EKG or X-rays taken, they have been read by the Emergency Physician. The X-rays and EKG's will also be read by a Radiologist or Deli Bakery Clerk within 24 hours. If discrepancies are noted, you will be notified by telephone. Please be certain the ED has a correct telephone number & address where you can be reached. Also, realize that some fractures or abnormalities do not show up on initial X-rays. If your symptoms continue, see your physician. ABOUT YOUR LABORATORY TEST: If you had laboratory tests, the results have been reviewed by the Emergency Physician. Some test results (for example cultures) may not be available for several days. You will be contacted if any test result shows you need additional treatment. Please be certain the ED has a correct telephone number and address where you can be reached. ABOUT YOUR MEDICATIONS: You will receive instructions on how to take your medicine on the prescription label you receive. Additional information may be provided by the Pharmacy. If you have questions afterwards, call the ED for clarification or further instructions. Some prescribed medications may cause drowsiness. Do not perform tasks such as driving a car or operating machinery without consulting your Pharmacist. If you feel you need a refill of pain medication, your condition will need re-evaluation. Please do not call for a refill of any medication. ABOUT YOUR SIGNATURE: Signature of this document acknowledges to followin. Understanding that you received emergency treatment and that you may be released before al medical problems are known or treated. Please be certain the ED has a correct phone number & address where you can be reached. 2. Acknowledgement that you will arrange for follow-up care as recommended. 3. Authorization for the Emergency Physician to provide information to your follow-up Physician in order to maximize your care. AT ANY TIME, IF YOUR SYMPTOMS CHANGE SIGNIFICANTLY OR WORSEN OR YOU DEVELOP NEW SYMPTOMS, RETURN TO THE EMERGENCY DEPARTMENT IMMEDIATELY FOR RE-EVALUATION. OUR GOAL IS TO PROVIDE EXCELLENT MEDICAL CARE! WE HOPE THAT WE HAVE MET YOUR EXPECTATIONS DURING YOUR EMERGENCY DEPARTMENT VISIT AND THAT YOU FEEL YOU HAVE RECEIVED EXCELLENT CARE! Referrals: JOSE MANUEL MIX MD [Primary Care Provider] - Follow up as needed I personally performed the services described in the documentation, reviewed and edited the documentation which was dictated to the scribe in my presence, and it accurately records my words and actions.
[2019-06-15 21:52] VITALS: BP 130/70
== END 2019-06-15 21:51 | disposition home or self-care (01) ==
LOC: ER 17:15
DX: T82.838A Hemorrhage due to vascular prosthetic devices, implants and grafts, initial encounter (principal); Y83.2 Surgical operation with anastomosis, bypass or graft as the cause of abnormal reaction of the patient, or of later complication, without mention of misadventure at the time of the procedure; I12.0 Hypertensive chronic kidney disease with stage 5 chronic kidney disease or end stage renal disease; E11.22 Type 2 diabetes mellitus with diabetic chronic kidney disease; N18.6 End stage renal disease; Z99.2 Dependence on renal dialysis; E78.00 Pure hypercholesterolemia, unspecified; Z86.73 Personal history of transient ischemic attack (TIA), and cerebral infarction without residual deficits; I25.2 Old myocardial infarction
CPT/HCPCS: 99283

== ENCOUNTER → 2019-08-22 | Outpatient (CLI) | payer MEDICARE ==
--- NOTE | 2019-08-22 12:32 | RADIOLOGY REPORT (SQ) ---
EXAM DESCRIPTION: VENOUS BILATERAL LOWER COMPLETED DATE/TIME: 08/22/2019 11:22 am REASON FOR STUDY: SWELLING R22.43 LOCALIZED SWELLING, MASS AND LUMP, LOWER LIMB, BILATE COMPARISON: None. TECHNIQUE: Dynamic and static gonzales scale and color images acquired of both lower extremity venous sy stems. Selected spectral images acquired with additional compression and augmentation maneuvers. Imag es stored on PACS. LIMITATIONS: None. FINDINGS: RIGHT LEG COMMON FEMORAL AND FEMORAL: Normal phasicity, compression and augmentation. No visualized echogenic m aterial on gonzales scale. No defects on color images. POPLITEAL: Normal compression and augmentation. No visualized echogenic material on gonzales scale. No de fects on color images. CALF VESSELS: Normal compression and augmentation. No visualized echogenic material on gonzales scale. No defects on color image. GSV AND SSV: Normal compression. No visualized echogenic material on gonzales scale. No defects on color images. ANY DEEP VENOUS INSUFFICIENCY: Not evaluated. ANY EVIDENCE OF POPLITEAL CYST: No. OTHER: No other significant finding. LEFT LEG COMMON FEMORAL AND FEMORAL: Normal phasicity, compression and augmentation. No visualized echogenic m aterial on gonzales scale. No defects on color images. POPLITEAL: Normal compression and augmentation. No visualized echogenic material on gonzales scale. No de fects on color images. CALF VESSELS: Normal compression and augmentation. No visualized echogenic material on gonzales scale. No defects on color images. GSV AND SSV: Normal compression. No visualized echogenic material on gonzales scale. No defects on color images. ANY DEEP VENOUS INSUFFICIENCY: Not evaluated. ANY EVIDENCE POPLITEAL CYST: No. OTHER: No other significant finding. IMPRESSION: NO EVIDENCE DVT OR SVT IN EITHER LEG. TECHNICAL DOCUMENTATION: JOB ID: [id number] 2010 [employer]- All Rights Reserved Reading location - IP/workstation name: [email or web address]
== END ==
LOC: SP 09:37
PROVIDERS: ATTEND Internal Medicine
DX: R22.43 Localized swelling, mass and lump, lower limb, bilateral (principal)
CPT/HCPCS: 93970

== ENCOUNTER 2019-10-14 12:06 | Inpatient (IN) | payer MEDICARE ==
--- NOTE | 2019-10-14 13:26 | RADIOLOGY REPORT (SQ) ---
EXAM DESCRIPTION: CT HEAD WITHOUT IMAGES COMPLETED DATE/TIME: 10/14/2019 12:08 pm REASON FOR STUDY: fall/unwitnessed COMPARISON: 12/08/2018. TECHNIQUE: Axial images acquired through the brain without intravenous contrast. Images reviewed wi th bone, brain and subdural windows. Additional sagittal and coronal reconstructions were generated. Images stored on PACS. All CT scanners at this facility use dose modulation, iterative reconstruction, and/or weight based d osing when appropriate to reduce radiation dose to as low as reasonably achievable (ALARA). [facility]: Dose Right [facility]: CareDose [facility]: Dose Right [facility]: Teradose 4D [facility]: Smart [employer] RADIATION DOSE: CT Rad equipment meets quality standard of care and radiation dose reduction techniq ues were employed. CTDIvol: 53.2 mGy. DLP: 991 mGy-cm. mGy. LIMITATIONS: None. FINDINGS: VENTRICLES: Mild prominence of the ventricles and sulci consistent with mild cerebral and cerebellar atrophy. No evidence of acute hydrocephalus. CEREBRUM: No masses. No hemorrhage. No midline shift. No evidence for acute infarction. Normal gra y-white matter differentiation. Mild patchy periventricular, deep, and subcortical white matter hypo dense attenuation consistent with mild chronic small vessel ischemic change. There is intracranial a therosclerosis. CEREBELLUM: No masses. No hemorrhage. No alteration of density. No evidence for acute infarction. EXTRAAXIAL SPACES: No fluid collections. No masses. ORBITS AND GLOBE: Postoperative changes bilateral globes. No intra- or extraconal masses. Normal co ntour of globe without masses. CALVARIUM: No fracture. PARANASAL SINUSES: No fluid or mucosal thickening. SOFT TISSUES: No mass or hematoma. OTHER: No other significant finding. IMPRESSION: No significant interval change. Mild chronic small vessel ischemic change and mild cere bral and cerebellar atrophy, stable. No acute intracranial hemorrhage, mass, or evidence of acute te rritorial infarct. EVIDENCE OF ACUTE STROKE: NO. COMMENT: Quality ID # 436: Final reports with documentation of one or more dose reduction techniques (e.g., Automated exposure control, adjustment of the mA and/or kV according to patient size, use of iterative reconstruction technique) TECHNICAL DOCUMENTATION: JOB ID: [id number] 2010 [employer]- All Rights Reserved Reading location - IP/workstation name: [email or web address]
--- NOTE | 2019-10-14 13:36 | RADIOLOGY REPORT (SQ) ---
EXAM DESCRIPTION: CT CERVICAL SPINE WITHOUT IMAGES COMPLETED DATE/TIME: 10/14/2019 1:08 pm REASON FOR STUDY: fall COMPARISON: 03/03/2017 TECHNIQUE: Axial images acquired through the cervical spine without intravenous contrast. Images re viewed with lung, soft tissue and bone windows. Reconstructed coronal and sagittal MPR images review ed. Images stored on PACS. All CT scanners at this facility use dose modulation, iterative reconstruction, and/or weight based d osing when appropriate to reduce radiation dose to as low as reasonably achievable (ALARA). [facility]: Dose Right [facility]: CareDose [facility]: Dose Right [facility]: Teradose 4D [facility]: [employer] RADIATION DOSE: CT Rad equipment meets quality standard of care and radiation dose reduction techniq ues were employed. CTDIvol: 14.0 mGy. DLP: 296 mGy-cm. mGy. LIMITATIONS: None. FINDINGS: ALIGNMENT: Anatomic. MINERALIZATION: Normal. VERTEBRAL BODIES: No fractures or dislocation. DISCS: Multilevel disc space narrowing with osteophytes. FACETS, LATERAL MASSES, POSTERIOR ELEMENTS: Facet arthropathy. No fractures. No dislocation. No ac [facility] findings. HARDWARE: None in the spine. VISUALIZED RIBS: No fractures. LUNG APICES AND SOFT TISSUES: Pleural thickening left lung apex OTHER: No other significant finding. IMPRESSION: CHRONIC DEGENERATIVE CHANGES. NO ACUTE FINDINGS. TECHNICAL DOCUMENTATION: JOB ID: [id number] Quality ID # [id number]: Final reports with documentation of one or more dose reduction techniques (e.g., Au tomated exposure control, adjustment of the mA and/or kV according to patient size, use of iterative reconstruction technique) 2010 [employer]- All Rights Reserved Reading location - IP/workstation name: [email or web address]
--- NOTE | 2019-10-14 13:39 | RADIOLOGY REPORT (SQ) ---
EXAM DESCRIPTION: CT ABD/PELVIS NO ORAL OR IV IMAGES COMPLETED DATE/TIME: 10/14/2019 12:21 pm REASON FOR STUDY: fall/right hip pain COMPARISON: 05/29/2018. TECHNIQUE: CT scan of the abdomen and pelvis performed without intravenous or oral contrast. Images reviewed with lung, soft tissue, and bone windows. Reconstructed coronal and sagittal MPR images revi ewed. All images stored on PACS. All CT scanners at this facility use dose modulation, iterative reconstruction, and/or weight based d osing when appropriate to reduce radiation dose to as low as reasonably achievable (ALARA). [facility]: Dose Right [facility]: CareDose [facility]: Dose Right [facility]: Teradose 4D [facility]: [employer] RADIATION DOSE: CT Rad equipment meets quality standard of care and radiation dose reduction techniq ues were employed. CTDIvol: 14.4 mGy. DLP: 756 mGy-cm.mGy. LIMITATIONS: None. FINDINGS: LOWER CHEST: There is consolidation in the left lower lobe with small left pleural effusio n. Rounded atelectasis or loculated effusion at the left fissure. Small right effusion. No right c onsolidation. Severe cardiomegaly with moderate pericardial effusion. NON-CONTRASTED LIVER, SPLEEN, ADRENALS: Evaluation limited by lack of IV contrast. No identified sign ificant masses. PANCREAS: No masses. No peripancreatic inflammatory changes. GALLBLADDER: Surgically absent. RIGHT KIDNEY AND URETER: Renal cortical atrophy. No significant calcifications. No hydronephrosis or hydroureter. LEFT KIDNEY AND URETER: Renal cortical atrophy. No significant calcifications. No hydronephrosis or hydroureter. AORTA AND RETROPERITONEUM: No aneurysm. No retroperitoneal masses or adenopathy. BOWEL AND PERITONEAL CAVITY: Colonic diverticulosis without evidence of diverticulitis. No bowel obs truction. No bowel wall thickening. No significant inflammatory change. No ascites or pneumoperito neum. APPENDIX: Normal. PELVIS, BLADDER, AND ABDOMINAL WALL:Leiomyomatous uterus. No adnexal mass. Urinary bladder is decom pressed. Calcified pelvic phleboliths. BONES: There is an acute intertrochanteric fracture of the right proximal femur with mild overriding of the fracture fragments. Femoroacetabular joint has normal alignment. Degenerative disc disease a nd spondylosis in the lumbar spine. OTHER: Small fat containing umbilical hernia. IMPRESSION: 1. Acute impacted intertrochanteric fracture right proximal femur. 2. Left lower lobe consolidation and small left pleural effusion. Finding may represent infectious/ inflammatory process. 3. Severe cardiomegaly with moderate pericardial effusion. 4. Colonic diverticulosis without evidence of diverticulitis. COMMENT: Quality ID # 436: Final reports with documentation of one or more dose reduction techniques (e.g., Automated exposure control, adjustment of the mA and/or kV according to patient size, use of iterative reconstruction technique) TECHNICAL DOCUMENTATION: JOB ID: [id number] 2010 [employer]- All Rights Reserved Reading location - IP/workstation name: [email or web address]
--- NOTE | 2019-10-14 13:44 | RADIOLOGY REPORT (SQ) ---
EXAM DESCRIPTION: CHEST SINGLE VIEW IMAGES COMPLETED DATE/TIME: 10/14/2019 1:28 pm REASON FOR STUDY: fall COMPARISON: 01/17/2019, 12/26/2018 EXAM PARAMETERS: NUMBER OF VIEWS: One view. TECHNIQUE: Single frontal radiographic view of the chest acquired. RADIATION DOSE: NA LIMITATIONS: None. FINDINGS: LUNGS AND PLEURA: Chronic blunting left lateral costophrenic sulcus trace fluid right cost ophrenic sulcus Mild pulmonary vascular congestion without alveolar or interstitial edema. No pneumothorax MEDIASTINUM AND HILAR STRUCTURES: No masses. Contour normal. HEART AND VASCULAR STRUCTURES: Stable cardiomegaly BONES: No acute findings. HARDWARE: None in the chest. OTHER: No other significant finding. IMPRESSION: Stable cardiomegaly Trace right pleural fluid No gross acute infiltrates TECHNICAL DOCUMENTATION: JOB ID: [id number] 2010 [employer]- All Rights Reserved Reading location - IP/workstation name: [email or web address]
--- NOTE | 2019-10-14 13:45 | RADIOLOGY REPORT (SQ) ---
EXAM DESCRIPTION: HIP RIGHT AP/LATERAL IMAGES COMPLETED DATE/TIME: 10/14/2019 1:28 pm REASON FOR STUDY: fall COMPARISON: None. NUMBER OF VIEWS: Two views. TECHNIQUE: AP pelvis and additional frog-leg view of the right hip. LIMITATIONS: Artifact from belt buckle FINDINGS: MINERALIZATION: Osteoporotic RIGHT HIP: Acute comminuted intertrochanteric right proximal femoral fracture with varus angulation LEFT HIP: No fracture or dislocation. No worrisome bone lesions. PUBIS AND ISCHIUM: No gross displaced fracture, artifact from belt buckle PELVIS: No fracture. SACRUM: No fracture or dislocation. No worrisome bone lesions. SOFT TISSUES: No findings. OTHER: No other significant finding. IMPRESSION: Acute comminuted intertrochanteric right proximal femoral fracture with varus angulation TECHNICAL DOCUMENTATION: JOB ID: [id number] 2010 [employer]- All Rights Reserved Reading location - IP/workstation name: [email or web address]
[2019-10-14] MEDS ORDERED: ONDANSETRON HCL INJ/PF 4 MG/2 ML SDV IV ONE (14:25)
[2019-10-14] MEDS: MORPHINE SULFATE 10 MG/ML INJ IV ONE ×2 (14:39→18:51)
[2019-10-14 14:42] LABS: ABSOLUTE BASOPHILS # (AUTO) 0.2 10^3/uL (0.0-0.2); ABSOLUTE LYMPHOCYTES (AUTO) 0.7 10^3/uL (0.5-4.7); ABSOLUTE MONOCYTES (AUTO) 0.4 10^3/uL (0.1-1.4); ABSOLUTE NEUT (AUTO) 7.4 10^3/uL (1.7-8.2); BASOPHILS % (AUTO) 1.8 % (0-2); EOSINOPHILS % (AUTO) 0.2 % (0-6); HEMATOCRIT 29.3 % (36.0-47.0); HEMOGLOBIN 9.5 g/dL (12.0-15.5); LYMPHOCYTES % (AUTO) 7.9 % (13-45); MEAN CORPUSCULAR HEMOGLOBIN 32.2 pg (27.0-33.4); MEAN CORPUSCULAR HGB CONC 32.6 g/dL (32.0-36.0); MEAN CORPUSCULAR VOLUME 99 fl (80-97); MONOCYTES % (AUTO) 4.8 % (3-13); PLATELET COUNT 330 10^3/uL (150-450); RED BLOOD COUNT 2.96 10^6/uL (3.72-5.28); RED CELL DISTRIBUTION WIDTH 17.9 % (11.5-14.0); SEGMENTED NEUTROPHILS % (AUTO) 85.3 % (42-78); TOTAL CELLS COUNTED % (AUTO) 100 %; WHITE BLOOD COUNT 8.7 10^3/uL (4.0-10.5)
[2019-10-14 14:58] LABS: ALBUMIN 3.2 g/dL (3.5-5.0); ALKALINE PHOSPHATASE 107 U/L (38-126); ANION GAP 5 (5-19); ASPARTATE AMINO TRANSFERASE 20 U/L (14-36); BILIRUBIN,DIRECT 0.2 mg/dL (0.0-0.4); BILIRUBIN,TOTAL 0.5 mg/dL (0.2-1.3); BLOOD UREA NITROGEN 12 mg/dL (7-20); CALCIUM 9.9 mg/dL (8.4-10.2); CARBON DIOXIDE 31 mmol/L (22-30); CHLORIDE 103 mmol/L (98-107); CREATINE KINASE 26 U/L (30-135); GLUCOSE 125 mg/dL (75-110); POTASSIUM 3.4 mmol/L (3.6-5.0); TOTAL PROTEIN 6.4 g/dL (6.3-8.2)
[2019-10-14 14:59] LABS: INTERNATIONAL RATION (INR) 1.08
[2019-10-14] MEDS ORDERED: METOCLOPRAMIDE HCL INJ/PF 10 MG/2 ML SDV IV ONE (14:59)
[2019-10-14 15:00] LABS: PARTIAL THROMBOPLASTIN TIME 28.7 SEC (23.5-35.8)
--- NOTE | 2019-10-14 16:43 | ER Document Report ---
Entered by ORLANDO QUILES SCRIBE 10/14/19 1220 Acting as scribe for:IRVING CABRERA MD ED General - General Stated Complaint: HIP PAIN Time Seen by Provider: 10/14/19 12:11 Primary Care Provider: JOSE MANUEL MIX MD [Primary Care Provider] - Follow up as needed Information source: Patient, Emergency Med Personnel Notes: This 78 year old female patient presents to the emergency department today with right hip pain from a mechanical fall. EMS is at bedside and states the patient fell while she was preparing to take a bath at home. EMS states the patient felt pain in her right hip and was unable to get up. EMS states the patient was on the floor for 3 hours until her daughter came home from work to help her up. EMS states the patient did not feel any pain in her neck or back. EMS states there was no loss of consciousness, shortness of breath, chest pain, or headache. Patient states she cannot use her wheelchair or walker in the bathroom because they cannot fit through the door frame. TRAVEL OUTSIDE OF THE [place] IN LAST 30 DAYS: No - Related Data Allergies/Adverse Reactions: adhesive tape Allergy (Intermediate, Verified 10/14/19 12:23) Generalized rash Past Medical History - General Information source: Patient, Emergency Med Personnel - Social History Smoking Status: Unknown if Ever Smoked Family History: CAD, Hypertension, Other - Kidney disease - Past Medical History Cardiac Medical History: Reports: Hx Coronary Artery Disease - HIGH CHOL, Hx Heart Attack - 2016; POSSIBLE CARDIAC STENT PLACEMENT "TO KEEP THE VALVE OPEN", Hx Hypercholesterolemia, Hx Hypertension - HX. OF, CURRENTLY OFF HER HTN MEDS DUE TO LOW BP Pulmonary Medical History: Reports: Hx Pneumonia - NOVEMBER 2017 Neurological Medical History: Reports: Hx Cerebrovascular Accident - JUNE 2010, DENIES DEFICITS Endocrine Medical History: Reports: Hx Diabetes Mellitus Type 2, Hx Hypothyro idism Renal/ Medical History: Reports: Hx End Stage Renal Disease, Hx Peritoneal Dialysis Musculoskeletal Medical History: Reports Hx Arthritis Past Surgical History: Reports: Hx Cardiac Catheterization, Hx Cholecystectomy - Immunizations Hx Diphtheria, Pertussis, Tetanus Vaccination: Yes - PATIENT UNSURE Hx Pneumococcal Vaccination: 04/19/12 Review of Systems - Review of Systems Constitutional: No symptoms reported EENT: No symptoms reported Cardiovascular: See HPI. denies: Chest pain Respiratory: See HPI. denies: Short of breath Gastrointestinal: No symptoms reported Genitourinary: No symptoms reported Female Genitourinary: No symptoms reported Musculoskeletal: See HPI, Other - Right hip pain.. denies: Back pain, Neck pain Skin: No symptoms reported Hematologic/Lymphatic: No symptoms reported Neurological/Psychological: See HPI. denies: Lost consciousness, Headaches -: Yes All other systems reviewed and negative Physical Exam - Vital signs Vitals: BP 139/52 H 10/14/19 12:13 - General General appearance: Alert In distress: Moderate - HEENT Head: Normocephalic, Atraumatic Eyes: Other - Partial vision in left eye. Cornea: Other - Right eye is cloudy with mucous. -: right: Nonreactive - Right pupil Ears: Normal External canal: Cerumen impaction - Left and right. Neck: Carotid bruit - 2+ equal., Supple - Respiratory Respiratory status: No respiratory distress Chest status: Nontender Breath sounds: Normal Chest palpation: Normal - Cardiovascular Rhythm: Regular Heart sounds: Normal auscultation Murmur: No - Abdominal Inspection: Normal Distension: No distension Bowel sounds: Normal Tenderness: Nontender Organomegaly: No organomegaly - Extremities General upper extremity: Normal inspection. No: Edema General lower extremity: Other - Right leg is shorter than left. Outward rotation of the right leg. Distal pulse is faint. Hip: Tender - Right hip., Other - Pelvis immobilized with binder. - Neurological Neuro grossly intact: Yes Cognition: Normal Orientation: AAOx4 - Psychological Associated symptoms: Normal affect, Normal mood - Skin Skin Temperature: Warm Skin Moisture: Dry Skin Color: Normal Course - Re-evaluation Re-evalutation: 10/14/19 16:32 Patient is resting in bed. She has complained of pain in her right hip only. Patient has had 1 vomiting episode which was treated with Zofran. Reglan was also added as patient had vomiting after the Zofran. 10/14/19 16:33 Case was discussed with Dr. martinez the on-call orthopedic physician who stated he would consult on the patient but the patient needed to be admitted to the edical service due to her medical problems. Case discussed with Dr. Marcus, who is on-call today for Dr. Mix. Dr. Yudith Campso instructed me to admit patient to the IMCU floor under the care of Dr. Mix - Vital Signs Vital signs: Temp Pulse Resp BP Pulse Ox 97.5 F 58 L 19 163/58 H 96 10/14/19 12:24 10/14/19 12:24 10/14/19 14:00 10/14/19 13:37 10/14/19 14:00 - Laboratory Result Diagrams: 10/14/19 14:24 10/14/19 14:24 Laboratory results interpreted by me: 10/14/19 10/14/19 14:24 14:24 RBC 2.96 L Hgb 9.5 L Hct 29.3 L MCV 99 H RDW 17.9 H Lymph % (Auto) 7.9 L Seg Neutrophils % 85.3 H Potassium 3.4 L Carbon Dioxide 31 H Creatinine 5.60 H Est GFR ( Amer) 9 L Est GFR (MDRD) Non-Af 7 L Glucose 125 H Creatine Kinase 26 L Albumin 3.2 L Patient has a chronic anemia and chronic renal failure. Labs are consistent with that. Patient has a mildly elevated troponin 0 0.014. Patient's EKG does not show any acute ST-T wave changes. Patient denies chest pain at this time. - Diagnostic Test Radiology reviewed: Image reviewed, Reports reviewed Radiology results interpreted by me: 10/14/19 16:37 Chest x-ray shows cardiomegaly chronic CHF pattern. CT scan of brain disclose no acute stroke CT scan of cervical spine degenerative changes noted no acute process. CT scan abdomen and pelvis diverticulosis without diverticulitis noted no other acute changes other than the fracture of the right femur with a intertrochanteric impacted fracture. Also noted in the bases of the lungs was left lower lobe consolidation, atelectasis versus infiLTRATE. 10/14/19 16:39 - EKG Interpretation by Me Additional EKG results interpreted by me: 10/14/19 16:39 Twelve-lead EKG , time 1344 shows normal sinus rhythm rate of 61 occasional PVC otherwise no acute ST-T wave changes. Discharge - Discharge Clinical Impression: Closed intertrochanteric fracture of right femur, Chronic renal failure, Hemodialysis AV fistula stenosis, Pericardial effusion, Congestive heart failure, Elevated troponin I level, Diabetes mellitus type 2 in obese Condition: Fair Disposition: ADMITTED INPATIENT Admitting Provider: Wendi Unit Admitted: IMCU Referrals: JOSE MANUEL MIX MD [Primary Care Provider] - Follow up as needed I personally performed the services described in the documentation, reviewed and edited the documentation which was dictated to the scribe in my presence, and it accurately records my words and actions.
[2019-10-14] MEDS ORDERED: DEXTROSE 50%-WATER 25 GM/50 ML DISP.SYRIN IV PRN ×2 (19:52)
[2019-10-14] MEDS ORDERED: DEXTROSE 40% GEL 15 GM TUBE PO PRN ×2 (19:52)
[2019-10-14] MEDS ORDERED: GLUCAGON,HUMAN RECOMB 1 MG INJ SUBCUT PRN (19:52)
[2019-10-14] MEDS: MORPHINE SULFATE 10 MG/ML INJ IV PRN (20:38)
--- NOTE | 2019-10-14 21:29 | PDOC H&P ---
History of Present Illness Admission Date/PCP: 10/14/19 16:53 JOSE MANUEL MIX MD Patient complains of: Right Hip pain History of Present Illness: LOVELY ESPAÑA is a 78 year old female patient of Dr. Mxi who presented to the [facility] following a mechanical fall at home. Patient reported that she fell in the process of getting into her bath at home. She denied any preceding chest pain, palpitation or irregular heart beat. She was unable to get off the floor due to associated right hip pain. She was on the floor for about three hours until her daughter return from work and was able to activate EMS. She denied loss of consciousness or seizure activities. She denied any nausea but reported episode of vomiting after attempt at eating earlier today. No abdominal pain. Patient reported ongoing mobility at home that might have contributed to her fall due to inability to use her walker and wheelchair beyond her bathroom door. Her initial ED evaluation was significant for right intertrochantic femoral fracture with osteoporosis on her X ray. She was advised hospitalization for further evaluation and surgical intervention. Her morbidities are as listed below. Past Medical History Cardiac Medical History: Reports: Coronary Artery Disease - HIGH CHOL, Myocardial Infarction - 2017; POSSIBLE CARDIAC STENT PLACEMENT "TO KEEP THE VALVE OPEN", Hyperlipidema, Hypertension - HX. OF, CURRENTLY OFF HER HTN MEDS DUE TO LOW BP Pulmonary Medical History: Reports: Pneumonia - NOVEMBER 2017 Denies: Asthma, Bronchitis, Chronic Obstructive Pulmonary Disease (COPD), Tuberculosis Neurological Medical History: Denies: Seizures Endocrine Medical History: Reports: Diabetes Mellitus Type 2, Hypothyroidism Renal/ Medical History: Reports: End Stage Renal Disease - on hemodialysis on Tuesday, Tuesday, Tuesday schedule. Musculoskeltal Medical History: Reports: Arthritis Hematology: Denies: Anemia Past Surgical History Past Surgical History: Reports: Cardiac Catheterization, Cholecystectomy Denies: Pacemaker Social History Smoking Status: Unknown if Ever Smoked Frequency of Alcohol Use: None Hx Recreational Drug Use: No Hx Prescription Drug Abuse: No - Advance Directive Resuscitation Status: Full Code Family History Family History: CAD, Hypertension, Other - Kidney disease Parental Family History Reviewed: Yes Children Family History Reviewed: Yes Sibling(s) Family History Reviewed.: Yes Medication/Allergy Home Medications: Amlodipine Besylate [Norvasc 10 mg Tablet] 10 mg PO DAILY 12/22/18 Aspirin [Micheal Chewable Aspirin] 81 mg PO DAILY 12/22/18 Atorvastatin Calcium [Lipitor 80 mg Tablet] 80 mg PO DAILY 12/22/18 Clonidine HCl [Catapres 0.2 mg Tablet] 0.2 mg PO Q12 12/22/18 Levothyroxine Sodium 150 mcg PO Q6AM 12/22/18 Allergies/Adverse Reactions: adhesive tape Allergy (Intermediate, Verified 10/14/19 12:23) Generalized rash Review of Systems Constitutional: ABSENT: chills, fever(s), headache(s), weight gain, weight loss Eyes: PRESENT: visual disturbances Ears: PRESENT: hearing changes Cardiovascular: PRESENT: edema. ABSENT: chest pain, dyspnea on exertion, orthropnea, palpitations Respiratory: ABSENT: cough, hemoptysis Gastrointestinal: ABSENT: abdominal pain, constipation, diarrhea, hematemesis, hematochezia, nausea, vomiting Genitourinary: ABSENT: dysuria, hematuria Musculoskeletal: ABSENT: joint swelling Integumentary: ABSENT: rash, wounds Neurological: PRESENT: abnormal gait. ABSENT: abnormal speech, confusion, dizziness, focal weakness, syncope Psychiatric: ABSENT: anxiety, depression, homidical ideation, suicidal ideation Endocrine: ABSENT: cold intolerance, heat intolerance, polydipsia, polyuria Hematologic/Lymphatic: ABSENT: easy bleeding, easy bruising, lymphadenopathy Allergic/Immunologic: ABSENT: seasonal rhinorrhea Physical Exam Vital Signs: Temp Pulse Resp BP Pulse Ox 98.4 F 69 16 173/55 H 100 10/14/19 18:35 10/14/19 19:00 10/14/19 18:35 10/14/19 18:35 10/14/19 18:35 Intake & Output 10/13/19 10/14/19 10/15/19 06:59 06:59 06:59 Weight 57.4 kg General appearance: PRESENT: no acute distress, mild distress - due to right hip joint pain relayed to her recent fall Head exam: PRESENT: atraumatic, normocephalic Eye exam: PRESENT: conjunctiva pink. ABSENT: scleral icterus Ear exam: PRESENT: normal external ear exam Mouth exam: PRESENT: moist, tongue midline Neck exam: PRESENT: full ROM. ABSENT: carotid bruit, JVD, lymphadenopathy, thyromegaly Respiratory exam: PRESENT: clear to auscultation debbie, decreased breath sounds - at lung bases Cardiovascular exam: PRESENT: RRR. ABSENT: diastolic murmur, rubs, systolic murmur Vascular exam: ABSENT: pallor GI/Abdominal exam: PRESENT: normal bowel sounds, soft. ABSENT: distended, guarding, mass, organolmegaly, rebound, tenderness Rectal exam: PRESENT: deferred Extremities exam: PRESENT: pedal edema - chronic bilateral edema to below knee level Musculoskeletal exam: PRESENT: deformity - multiple joints and right hip with external rotation, tenderness - acute right hip joint with motion and examination. ABSENT: ambulatory Neurological exam: PRESENT: alert, awake, oriented to situation. ABSENT: CN II- XII grossly intact - legally blind and hearing impaired, motor sensory deficit Psychiatric exam: PRESENT: appropriate affect, normal mood. ABSENT: homicidal ideation, suicidal ideation Skin exam: PRESENT: dry, intact, warm. ABSENT: cyanosis, rash Results Laboratory Results: 10/14/19 14:24 10/14/19 14:24 10/14/19 10/14/19 10/14/19 14:24 14:24 14:24 WBC 8.7 RBC 2.96 L Hgb 9.5 L Hct 29.3 L MCV 99 H MCH 32.2 MCHC 32.6 RDW 17.9 H Plt Count 330 Seg Neutrophils % 85.3 H Sodium 138.8 Potassium 3.4 L Chloride 103 Carbon Dioxide 31 H Anion Gap 5 BUN 12 Creatinine 5.60 H Est GFR ( Amer) 9 L Glucose 125 H Lactic Acid 1.6 Calcium 9.9 Total Bilirubin 0.5 AST 20 Alkaline Phosphatase 107 Total Protein 6.4 Albumin 3.2 L Lipase 62.0 Blood Type Antibody Screen 10/14/19 10/14/19 14:24 15:20 WBC RBC Hgb Hct MCV MCH MCHC RDW Plt Count Seg Neutrophils % Sodium Potassium Chloride Carbon Dioxide Anion Gap BUN Creatinine Est GFR ( Amer) Glucose Lactic Acid Calcium Total Bilirubin AST Alkaline Phosphatase Total Protein Albumin Lipase Blood Type Cancelled O POSITIVE Antibody Screen Cancelled NEGATIVE 10/14/19 10/14/19 14:24 14:24 Creatine Kinase 26 L Troponin I 0.014 Impressions: Hip/Pelvis X-Ray 10/14/19 12:09 IMPRESSION: Acute comminuted intertrochanteric right proximal femoral fracture with varus angulation Chest X-Ray 10/14/19 12:30 IMPRESSION: Stable cardiomegaly Trace right pleural fluid No gross acute infiltrates Head CT 10/14/19 12:32 IMPRESSION: No significant interval change. Mild chronic small vessel ischemic change and mild cerebral and cerebellar atrophy, stable. No acute intracranial hemorrhage, mass, or evidence of acute territorial infarct. EVIDENCE OF ACUTE STROKE: NO. Cervical Spine CT 10/14/19 12:33 IMPRESSION: CHRONIC DEGENERATIVE CHANGES. NO ACUTE FINDINGS. Abdomen/Pelvis CT 10/14/19 12:37 IMPRESSION: 1. Acute impacted intertrochanteric fracture right proximal femur. 2. Left lower lobe consolidation and small left pleural effusion. Finding may represent infectious/ inflammatory process. 3. Severe cardiomegaly with moderate pericardial effusion. 4. Colonic diverticulosis without evidence of diverticulitis. Assessment & Plan - Diagnosis (1) Closed intertrochanteric fracture of right femur Qualifiers: Encounter type: initial encounter Fracture alignment: displaced Qualified Code(s): S72.141A - Displaced intertrochanteric fracture of right femur, initial encounter for closed fracture Is this a current diagnosis for this admission?: Yes Plan: See covering admitting attending physician orders for details about care plan. (2) Elevated troponin I level Is this a current diagnosis for this admission?: Yes Plan: See covering admitting attending physician orders for details about care plan. (3) Osteoporosis with fracture Qualifiers: Osteoporosis type: age-related Site of pathological fracture: hip Encounter type: initial encounter Laterality: right Qualified Code(s): M80.051A - Age-related osteoporosis with current pathological fracture, right femur, initial encounter for fracture Is this a current diagnosis for this admission?: Yes Plan: See covering admitting attending physician orders for details about care plan. (4) End stage renal disease on dialysis Is this a current diagnosis for this admission?: Yes Plan: See covering admitting attending physician orders for details about care plan. (5) Diabetes mellitus type 2 in nonobese Is this a current diagnosis for this admission?: Yes Plan: See covering admitting attending physician orders for details about care plan. (6) Systolic and diastolic CHF, chronic Is this a current diagnosis for this admission?: Yes Plan: See covering admitting attending physician orders for details about care plan. - Time Time Spent: 50 to 70 Minutes Medications reviewed and adjusted accordingly: Yes Anticipated discharge: SNF Within: Other - Inpatient Certification Based on my medical assessment, after consideration of the patient's comorbidities, presenting symptoms, or acuity I expect that the services needed warrant INPATIENT care.: Yes I certify that my determination is in accordance with my understanding of Medicare's requirements for reasonable and necessary INPATIENT services [42 CFR 412.3e].: Yes Medical Necessity: Significant Comorbidiites Make Outpatient Treatment Too Ris [place], Need Close Monitoring Due to Risk of Patient Decompensation, Need For Continuous Telemetry Monitoring, Need for Pain Control, Need for Surgery, Risk of Complication if Not Cared For in Hospital, Risk of Diagnosis Which Will Require Inpatient Eval/Care/Monitoring Post Hospital Care: D/C or Transfer Summary - Plan Summary Plan Summary: See covering admitting attending physician orders for details about care plan.
[2019-10-14] MEDS: INSULIN LISPRO 100 UNIT/ML 3 ML VIAL SUBCUT SCH (21:47)
--- NOTE | 2019-10-15 00:16 | EKG REPORT ---
SEVERITY:- OTHERWISE NORMAL ECG - SINUS RHYTHM VENTRICULAR PREMATURE COMPLEX : Confirmed by: Kindra Cai 15-Oct-2019 00:15:05
[2019-10-15] MEDS ORDERED: EPOETIN ALFA-EPBX 2,000 UNIT, EPOETIN ALFA-EPBX 3,000 UNIT, EPOETIN ALFA-EPBX 20,000 UN... IV PRN ×4 (05:00)
[2019-10-15 05:42] LABS: ABSOLUTE MONOCYTES (AUTO) 0.8 10^3/uL (0.1-1.4); ABSOLUTE NEUT (AUTO) 6.3 10^3/uL (1.7-8.2); BASOPHILS % (AUTO) 0.4 % (0-2); EOSINOPHILS % (AUTO) 0.3 % (0-6); HEMATOCRIT 27.1 % (36.0-47.0); HEMOGLOBIN 8.8 g/dL (12.0-15.5); LYMPHOCYTES % (AUTO) 12.2 % (13-45); MEAN CORPUSCULAR HEMOGLOBIN 31.7 pg (27.0-33.4); MEAN CORPUSCULAR HGB CONC 32.6 g/dL (32.0-36.0); MEAN CORPUSCULAR VOLUME 97 fl (80-97); MONOCYTES % (AUTO) 9.8 % (3-13); PLATELET COUNT 308 10^3/uL (150-450); RED BLOOD COUNT 2.79 10^6/uL (3.72-5.28); RED CELL DISTRIBUTION WIDTH 17.1 % (11.5-14.0); SEGMENTED NEUTROPHILS % (AUTO) 77.3 % (42-78); TOTAL CELLS COUNTED % (AUTO) 100 %; WHITE BLOOD COUNT 8.1 10^3/uL (4.0-10.5)
[2019-10-15] MEDS: PANTOPRAZOLE SODIUM 40 MG TABLET.DR PO SCH (06:01)
[2019-10-15] MEDS: HEPARIN SOD (PORCINE) 5,000 UNIT/ML 1 ML VIAL SUBCUT SCH ×3 (06:01→21:32)
[2019-10-15 06:12] LABS: ALBUMIN 2.7 g/dL (3.5-5.0); ALKALINE PHOSPHATASE 192 U/L (38-126); ASPARTATE AMINO TRANSFERASE 64 U/L (14-36); BILIRUBIN,DIRECT 0.3 mg/dL (0.0-0.4); BILIRUBIN,TOTAL 0.7 mg/dL (0.2-1.3); BLOOD UREA NITROGEN 15 mg/dL (7-20); CALCIUM 9.4 mg/dL (8.4-10.2); GLUCOSE 118 mg/dL (75-110); POTASSIUM 3.9 mmol/L (3.6-5.0); TOTAL PROTEIN 5.7 g/dL (6.3-8.2)
[2019-10-15 06:23] LABS: ANION GAP 6 (5-19); CARBON DIOXIDE 31 mmol/L (22-30); CHLORIDE 103 mmol/L (98-107)
[2019-10-15] MEDS ORDERED: DEXTROSE 40% GEL 15 GM TUBE PO PRN (07:37)
[2019-10-15] MEDS ORDERED: GLUCAGON,HUMAN RECOMB 1 MG INJ SUBCUT PRN (07:37)
--- NOTE | 2019-10-15 07:44 | PDOC CONSULTATION ---
Consultation Consult Date: 10/15/19 Provider Consulted: BRYANT PALMA History of Present Illness Admission Date/PCP: 10/14/19 16:53 JOSE MANUEL MIX MD Patient complains of: Right hip pain History of Present Illness: LOVELY ESPAÑA is a 78 year old female who lives at home alone utilizing a w alker for ambulation. On 10/14/2019 patient sustained a fall while she was in the bathroom onto her right hip. Patient was unable to ambulate and presented to emergency room where x-rays demonstrated intratrochanteric fracture. Patient currently lying in bed comfortably. States pain worse with any attempted motion. Denies chest pain or shortness of breath. Pain 2/5. Past Medical History Cardiac Medical History: Reports: Coronary Artery Disease - HIGH CHOL, Myocardial Infarction - 2016; POSSIBLE CARDIAC STENT PLACEMENT "TO KEEP THE VALVE OPEN", Hyperlipidema, Hypertension - HX. OF, CURRENTLY OFF HER HTN MEDS DUE TO LOW BP Pulmonary Medical History: Reports: Pneumonia - NOVEMBER 2017 Denies: Asthma, Bronchitis, Chronic Obstructive Pulmonary Disease (COPD), Tuberculosis Neurological Medical History: Denies: Seizures Endocrine Medical History: Reports: Diabetes Mellitus Type 2, Hypothyroidism Renal/ Medical History: Reports: End Stage Renal Disease - on hemodialysis on Tuesday, Tuesday, Tuesday schedule. Musculoskeltal Medical History: Reports: Arthritis Hematology: Denies: Anemia Past Surgical History Past Surgical History: Reports: Cardiac Catheterization, Cholecystectomy Denies: Pacemaker Social History Smoking Status: Unknown if Ever Smoked Frequency of Alcohol Use: None Hx Recreational Drug Use: No Hx Prescription Drug Abuse: No - Advance Directive Resuscitation Status: Full Code Family History Family History: CAD, Hypertension, Other - Kidney disease Parental Family History Reviewed: No Children Family History Reviewed: No Sibling(s) Family History Reviewed.: No Medication/Allergy Home Medications: Amlodipine Besylate [Norvasc 10 mg Tablet] 10 mg PO DAILY 12/22/18 Aspirin [Micheal Chewable Aspirin] 81 mg PO DAILY 12/22/18 Atorvastatin Calcium [Lipitor 80 mg Tablet] 80 mg PO DAILY 12/22/18 Clonidine HCl [Catapres 0.2 mg Tablet] 0.2 mg PO Q12 12/22/18 Levothyroxine Sodium 150 mcg PO Q6AM 12/22/18 Allergies/Adverse Reactions: adhesive tape Allergy (Intermediate, Verified 10/14/19 12:23) Generalized rash Review of Systems Constitutional: ABSENT: chills, fever(s), headache(s), weight gain, weight loss Eyes: ABSENT: visual disturbances Ears: ABSENT: hearing changes Cardiovascular: PRESENT: edema. ABSENT: chest pain, dyspnea on exertion, orthropnea, palpitations Respiratory: ABSENT: cough, hemoptysis Gastrointestinal: ABSENT: abdominal pain, constipation, diarrhea, hematemesis, hematochezia, nausea, vomiting Genitourinary: ABSENT: dysuria, hematuria Musculoskeletal: PRESENT: as per HPI Integumentary: ABSENT: rash, wounds Neurological: PRESENT: abnormal gait. ABSENT: abnormal speech, confusion, dizziness, focal weakness, syncope Psychiatric: ABSENT: anxiety, depression, homidical ideation, suicidal ideation Endocrine: ABSENT: cold intolerance, heat intolerance, menstrual abnormalities, polydipsia, polyuria Hematologic/Lymphatic: ABSENT: easy bleeding, easy bruising, lymphadenopathy Physical Exam Vital Signs: Temp Pulse Resp BP Pulse Ox 98.2 F 65 16 166/43 H 100 10/15/19 03:45 10/15/19 07:00 10/15/19 03:45 10/15/19 03:45 10/15/19 03:45 Intake & Output 10/14/19 10/15/19 10/16/19 06:59 06:59 06:59 Intake Total 0 Output Total 0 Balance 0 Weight 58.5 kg General appearance: PRESENT: no acute distress, well-developed, well-nourished Head exam: PRESENT: atraumatic, normocephalic Eye exam: PRESENT: conjunctiva pink, EOMI, PERRLA. ABSENT: scleral icterus Ear exam: PRESENT: normal external ear exam Mouth exam: PRESENT: moist, tongue midline Neck exam: PRESENT: full ROM. ABSENT: carotid bruit, JVD, lymphadenopathy, thyromegaly Respiratory exam: PRESENT: unlabored Cardiovascular exam: PRESENT: RRR. ABSENT: diastolic murmur, rubs, systolic murmur Pulses: PRESENT: +1 pedal pulses bilateral Additional comments: Fistula noted along the left upper extremity Vascular exam: PRESENT: normal capillary refill GI/Abdominal exam: PRESENT: normal bowel sounds, soft. ABSENT: distended, guarding, mass, organolmegaly, rebound, tenderness Rectal exam: PRESENT: deferred Musculoskeletal exam: PRESENT: other - Right hip: EMS binder removed there is indentation from the binder along the lateral aspect of the hip no evidence of skin breakdown. Extremity Short/externally rotated. Positive logroll. Intact plantarflexion/dorsiflexion. No sensory deficits. Neurological exam: PRESENT: alert, awake, oriented to person, oriented to place, oriented to time, oriented to situation, CN II-XII grossly intact. ABSENT: motor sensory deficit Psychiatric exam: PRESENT: appropriate affect, normal mood. ABSENT: homicidal ideation, suicidal ideation Skin exam: PRESENT: dry, intact, warm. ABSENT: cyanosis, rash Results Laboratory Results: 10/15/19 04:58 10/15/19 04:58 10/14/19 10/14/19 10/14/19 14:24 14:24 14:24 WBC 8.7 RBC 2.96 L Hgb 9.5 L Hct 29.3 L MCV 99 H MCH 32.2 MCHC 32.6 RDW 17.9 H Plt Count 330 Seg Neutrophils % 85.3 H Sodium 138.8 Potassium 3.4 L Chloride 103 Carbon Dioxide 31 H Anion Gap 5 BUN 12 Creatinine 5.60 H Est GFR ( Amer) 9 L Glucose 125 H Lactic Acid 1.6 Calcium 9.9 Total Bilirubin 0.5 AST 20 Alkaline Phosphatase 107 Total Protein 6.4 Albumin 3.2 L Lipase 62.0 Blood Type Antibody Screen 10/14/19 10/14/19 10/15/19 14:24 15:20 04:58 WBC 8.1 RBC 2.79 L Hgb 8.8 L Hct 27.1 L MCV 97 MCH 31.7 MCHC 32.6 RDW 17.1 H Plt Count 308 Seg Neutrophils % 77.3 Sodium Potassium Chloride Carbon Dioxide Anion Gap BUN Creatinine Est GFR ( Amer) Glucose Lactic Acid Calcium Total Bilirubin AST Alkaline Phosphatase Total Protein Albumin Lipase Blood Type Cancelled O POSITIVE Antibody Screen Cancelled NEGATIVE 10/15/19 04:58 WBC RBC Hgb Hct MCV MCH MCHC RDW Plt Count Seg Neutrophils % Sodium 140.4 Potassium 3.9 Chloride 103 Carbon Dioxide 31 H Anion Gap 6 BUN 15 Creatinine 6.28 H Est GFR ( Amer) 8 L Glucose 118 H Lactic Acid Calcium 9.4 Total Bilirubin 0.7 AST 64 H Alkaline Phosphatase 192 H Total Protein 5.7 L Albumin 2.7 L Lipase Blood Type Antibody Screen 10/14/19 10/14/19 14:24 14:24 Creatine Kinase 26 L Troponin I 0.014 Impressions: Hip/Pelvis X-Ray 10/14/19 12:09 IMPRESSION: Acute comminuted intertrochanteric right proximal femoral fracture with varus angulation Chest X-Ray 10/14/19 12:30 IMPRESSION: Stable cardiomegaly Trace right pleural fluid No gross acute infiltrates Head CT 10/14/19 12:32 IMPRESSION: No significant interval change. Mild chronic small vessel ischemic change and mild cerebral and cerebellar atrophy, stable. No acute intracranial hemorrhage, mass, or evidence of acute territorial infarct. EVIDENCE OF ACUTE STROKE: NO. Cervical Spine CT 10/14/19 12:33 IMPRESSION: CHRONIC DEGENERATIVE CHANGES. NO ACUTE FINDINGS. Abdomen/Pelvis CT 10/14/19 12:37 IMPRESSION: 1. Acute impacted intertrochanteric fracture right proximal femur. 2. Left lower lobe consolidation and small left pleural effusion. Finding may represent infectious/ inflammatory process. 3. Severe cardiomegaly with moderate pericardial effusion. 4. Colonic diverticulosis without evidence of diverticulitis. Status: Image reviewed by me - I have reviewed patient's CT scan and radiographs consistent with comminuted intertrochanteric fracture with varus deformity. No associated fracture. Osteopenia noted. Assessment & Plan - Diagnosis (1) Closed intertrochanteric fracture of right femur Qualifiers: Encounter type: initial encounter Fracture alignment: displaced Qualified Code(s): S72.141A - Displaced intertrochanteric fracture of right femur, initial encounter for closed fracture Is this a current diagnosis for this admission?: Yes Plan: Patient sustained a intertrochanteric right hip fracture. She was ambulating with assistive device prior to injury today I discussed treatment options with the patient and recommended proceeding with operative intervention which include right hip intramedullary nail. Risk and benefits of the surgical procedure were explained to the patient she verbalized understanding consented for surgical procedure. Risks include anesthetic complications, excessive bleeding, infection, injury to surrounding nerves, vessels and tendons, bruising, healing difficulties, scar formation, hardware complication, posttraumatic arthritis and any unforseen complication. Patient will receive dialysis today and plan will be to proceed with operative intervention on 10/16/2019 which includes right hip intramedullary nail.
[2019-10-15] MEDS: INSULIN LISPRO 100 UNIT/ML 3 ML VIAL SUBCUT SCH ×4 (08:30→21:33)
[2019-10-15] MEDS: MORPHINE SULFATE 10 MG/ML INJ IV PRN ×3 (10:38→22:05)
--- NOTE | 2019-10-15 12:55 | PDOC CONSULTATION ---
Consultation Consult Date: 10/15/19 Provider Consulted: Lucio ORTIZ Consult reason:: ESRD for HD. History of Present Illness Admission Date/PCP: 10/14/19 16:53 JOSE MANUEL MIX MD History of Present Illness: LOVELY ESPAÑA is a 78 year old female with history of ESRD on hemodialysis in the background of diabetes mellitus, hypertension with other comorbidities that includes CAD with interventions possibly was admitted with history of mechanical fall and intertrochanteric fracture of the right hip. Patient currently being seen on dialysis. She says she still got some pain of the right hip but tolerable. Vital signs are stable but towards the end of dialysis she began to drop her blood pressure. Therefore fluid removal is being re-titrated. Labs and medications were reviewed. Past Medical History Cardiac Medical History: Reports: CHF-Diastolic, Coronary Artery Disease - HIGH CHOL, Hyperlipidemia, Hypertension-primary, Myocardial Infarction - 2017; POSSIBLE CARDIAC STENT PLACEMENT "TO KEEP THE VALVE OPEN" Pulmonary Medical History: Reports: Pneumonia - NOVEMBER 2017 Denies: Asthma, Bronchitis, Chronic Obstructive Pulmonary Disease (COPD), Tuberculosis Neurological Medical History: Denies: Seizures Endocrine Medical History: Reports: Diabetes Mellitus Type 2, Hypothyroidism Renal/ Medical History: Reports: End Stage Renal Disease - on hemodialysis on Tuesday, Tuesday, Tuesday schedule., Secondary Hyperparathyroidism Musculoskeltal Medical History: Reports: Arthritis Past Surgical History Past Surgical History: Reports: Cardiac Catheterization, Cholecystectomy, Dialysis Access Surgery AVF Denies: Pacemaker Social History Smoking Status: Unknown if Ever Smoked Frequency of Alcohol Use: None Hx Recreational Drug Use: No Hx Prescription Drug Abuse: No - Advance Directive Resuscitation Status: Full Code Family History Parental Family History Reviewed: Yes - Negative for ESRD Children Family History Reviewed: No Sibling(s) Family History Reviewed.: No Medication/Allergy Home Medications: Amlodipine Besylate [Norvasc 10 mg Tablet] 10 mg PO DAILY 12/22/18 Aspirin [Micheal Chewable Aspirin] 81 mg PO DAILY 12/22/18 Atorvastatin Calcium [Lipitor 80 mg Tablet] 80 mg PO DAILY 12/22/18 Clonidine HCl [Catapres 0.2 mg Tablet] 0.2 mg PO Q12 12/22/18 Levothyroxine Sodium 150 mcg PO Q6AM 12/22/18 Allergies/Adverse Reactions: adhesive tape Allergy (Intermediate, Verified 10/14/19 12:23) Generalized rash Review of Systems Constitutional: PRESENT: anorexia, fatigue, weakness. ABSENT: chills, fever(s), headache(s) Nose, Mouth, and Throat: ABSENT: mouth pain, sore throat Cardiovascular: ABSENT: chest pain, dyspnea on exertion, edema, orthropnea, palpitations Respiratory: ABSENT: dyspnea, hemoptysis Gastrointestinal: ABSENT: dysphagia, nausea, vomiting Neurological: ABSENT: abnormal gait, abnormal movements, abnormal speech, confusion, dizziness, focal weakness, frequent falls Hematologic/Lymphatic: ABSENT: easy bruising, lymphadenopathy Physical Exam Vital Signs: Temp Pulse Resp BP Pulse Ox 97.4 F 68 18 153/46 H 100 10/15/19 08:13 10/15/19 08:13 10/15/19 08:13 10/15/19 08:13 10/15/19 08:13 Intake & Output 10/14/19 10/15/19 10/16/19 06:59 06:59 06:59 Intake Total 0 Output Total 0 Balance 0 Weight 58.5 kg General appearance: PRESENT: no acute distress Eye exam: PRESENT: EOMI, PERRLA. ABSENT: scleral icterus Ear exam: PRESENT: normal external ear exam Mouth exam: PRESENT: moist, neck supple Neck exam: ABSENT: meningismus, tenderness, thyromegaly, tracheal deviation Respiratory exam: PRESENT: clear to auscultation debbie. ABSENT: crackles Cardiovascular exam: PRESENT: +S1, +S2 GI/Abdominal exam: PRESENT: normal bowel sounds, soft. ABSENT: organomegaly, tenderness Extremities exam: ABSENT: pedal edema Neurological exam: PRESENT: alert, awake, oriented to person, oriented to place Psychiatric exam: PRESENT: appropriate affect Skin exam: ABSENT: cyanosis, erythema, mottled Results Laboratory Results: 10/15/19 04:58 10/15/19 04:58 10/14/19 10/14/19 10/14/19 14:24 14:24 14:24 WBC 8.7 RBC 2.96 L Hgb 9.5 L Hct 29.3 L MCV 99 H MCH 32.2 MCHC 32.6 RDW 17.9 H Plt Count 330 Seg Neutrophils % 85.3 H Sodium 138.8 Potassium 3.4 L Chloride 103 Carbon Dioxide 31 H Anion Gap 5 BUN 12 Creatinine 5.60 H Est GFR ( Amer) 9 L Glucose 125 H Lactic Acid 1.6 Calcium 9.9 Total Bilirubin 0.5 AST 20 Alkaline Phosphatase 107 Total Protein 6.4 Albumin 3.2 L Lipase 62.0 Blood Type Antibody Screen 10/14/19 10/14/19 10/15/19 14:24 15:20 04:58 WBC 8.1 RBC 2.79 L Hgb 8.8 L Hct 27.1 L MCV 97 MCH 31.7 MCHC 32.6 RDW 17.1 H Plt Count 308 Seg Neutrophils % 77.3 Sodium Potassium Chloride Carbon Dioxide Anion Gap BUN Creatinine Est GFR ( Amer) Glucose Lactic Acid Calcium Total Bilirubin AST Alkaline Phosphatase Total Protein Albumin Lipase Blood Type Cancelled O POSITIVE Antibody Screen Cancelled NEGATIVE 10/15/19 04:58 WBC RBC Hgb Hct MCV MCH MCHC RDW Plt Count Seg Neutrophils % Sodium 140.4 Potassium 3.9 Chloride 103 Carbon Dioxide 31 H Anion Gap 6 BUN 15 Creatinine 6.28 H Est GFR ( Amer) 8 L Glucose 118 H Lactic Acid Calcium 9.4 Total Bilirubin 0.7 AST 64 H Alkaline Phosphatase 192 H Total Protein 5.7 L Albumin 2.7 L Lipase Blood Type Antibody Screen 10/14/19 10/14/19 14:24 14:24 Creatine Kinase 26 L Troponin I 0.014 Impressions: Hip/Pelvis X-Ray 10/14/19 12:09 IMPRESSION: Acute comminuted intertrochanteric right proximal femoral fracture with varus angulation Chest X-Ray 10/14/19 12:30 IMPRESSION: Stable cardiomegaly Trace right pleural fluid No gross acute infiltrates Head CT 10/14/19 12:32 IMPRESSION: No significant interval change. Mild chronic small vessel ischemic change and mild cerebral and cerebellar atrophy, stable. No acute intracranial hemorrhage, mass, or evidence of acute territorial infarct. EVIDENCE OF ACUTE STROKE: NO. Cervical Spine CT 10/14/19 12:33 IMPRESSION: CHRONIC DEGENERATIVE CHANGES. NO ACUTE FINDINGS. Abdomen/Pelvis CT 10/14/19 12:37 IMPRESSION: 1. Acute impacted intertrochanteric fracture right proximal femur. 2. Left lower lobe consolidation and small left pleural effusion. Finding may represent infectious/ inflammatory process. 3. Severe cardiomegaly with moderate pericardial effusion. 4. Colonic diverticulosis without evidence of diverticulitis. Assessment & Plan - Diagnosis (1) Closed intertrochanteric fracture of right femur Qualifiers: Encounter type: initial encounter Fracture alignment: displaced Qualified Code(s): S72.141A - Displaced intertrochanteric fracture of right femur, initial encounter for closed fracture Is this a current diagnosis for this admission?: Yes Plan: As per primary care and orthopedic surgery. (2) End stage chronic kidney disease Plan: Patient currently undergoing dialysis. Vital signs are stable until towards the end of dialysis when she began to drop her blood pressure into the 90s. Therefore fluid removal was discontinued and is being monitored. Fluid removal will be therefore minimal. She still continues to make urine. Dialysis orders were reviewed with the treating dialysis nurse. (3) Diabetes mellitus type 2 in obese Plan: As per primary care for (4) Anemia in chronic kidney disease Plan: Adjust erythropoietin. Monitor (5) Hypertension Qualifiers: Hypertension type: essential hypertension Qualified Code(s): I10 - Essential (primary) hypertension Plan: Hypertension. She dropped her blood pressure into the 90s systolics towards end of treatment and therefore fluid removal was discontinued and will monitor. Otherwise controlled
[2019-10-15] MEDS: DEXTROSE 50%-WATER 25 GM/50 ML DISP.SYRIN IV PRN (13:47)
[2019-10-15] MEDS: LEVOTHYROXINE SODIUM 0.15 MG TABLET PO SCH (14:48)
--- NOTE | 2019-10-15 19:03 | PDOC PROGRESS REPORT ---
Subjective Progress Note for:: 10/15/19 Subjective:: She fell and sustained fracture of the right hip joint, she is scheduled for ORIF tomorrow, she was dialyzed today Reason For Visit: CLOSED INTERTROCHANTERIC FRACTURE R FEMUR,CHRONIC Physical Exam Vital Signs: Temp Pulse Resp BP Pulse Ox 97.4 F 75 18 136/48 H 97 10/15/19 08:13 10/15/19 14:00 10/15/19 13:11 10/15/19 13:11 10/15/19 13:11 Intake & Output 10/14/19 10/15/19 10/16/19 06:59 06:59 06:59 Intake Total 0 Output Total 0 1000 Balance 0 -1000 Weight 58.5 kg General appearance: PRESENT: no acute distress Eye exam: PRESENT: PERRLA Respiratory exam: PRESENT: clear to auscultation debbie Cardiovascular exam: PRESENT: +S1, +S2 GI/Abdominal exam: PRESENT: soft Results Laboratory Results: 10/15/19 04:58 10/15/19 04:58 10/15/19 10/15/19 04:58 04:58 WBC 8.1 RBC 2.79 L Hgb 8.8 L Hct 27.1 L MCV 97 MCH 31.7 MCHC 32.6 RDW 17.1 H Plt Count 308 Seg Neutrophils % 77.3 Sodium 140.4 Potassium 3.9 Chloride 103 Carbon Dioxide 31 H Anion Gap 6 BUN 15 Creatinine 6.28 H Est GFR ( Amer) 8 L Glucose 118 H Calcium 9.4 Total Bilirubin 0.7 AST 64 H Alkaline Phosphatase 192 H Total Protein 5.7 L Albumin 2.7 L 10/14/19 10/14/19 14:24 14:24 Creatine Kinase 26 L Troponin I 0.014 Impressions: Hip/Pelvis X-Ray 10/14/19 12:09 IMPRESSION: Acute comminuted intertrochanteric right proximal femoral fracture with varus angulation Chest X-Ray 10/14/19 12:30 IMPRESSION: Stable cardiomegaly Trace right pleural fluid No gross acute infiltrates Head CT 10/14/19 12:32 IMPRESSION: No significant interval change. Mild chronic small vessel ischemic change and mild cerebral and cerebellar atrophy, stable. No acute intracranial hemorrhage, mass, or evidence of acute territorial infarct. EVIDENCE OF ACUTE STROKE: NO. Cervical Spine CT 10/14/19 12:33 IMPRESSION: CHRONIC DEGENERATIVE CHANGES. NO ACUTE FINDINGS. Abdomen/Pelvis CT 10/14/19 12:37 IMPRESSION: 1. Acute impacted intertrochanteric fracture right proximal femur. 2. Left lower lobe consolidation and small left pleural effusion. Finding may represent infectious/ inflammatory process. 3. Severe cardiomegaly with moderate pericardial effusion. 4. Colonic diverticulosis without evidence of diverticulitis. Assessment & Plan - Diagnosis (1) Displaced intertrochanteric fracture of right femur, initial encounter for closed fracture Is this a current diagnosis for this admission?: Yes Plan: Per orthopedics (2) End stage renal disease Is this a current diagnosis for this admission?: Yes Plan: Per nephrology - Time Time Spent with patient: 25-34 minutes Level of Care: IMCU
[2019-10-16] MEDS: MORPHINE SULFATE 10 MG/ML INJ IV PRN ×4 (02:18→22:11)
[2019-10-16] MEDS: HEPARIN SOD (PORCINE) 5,000 UNIT/ML 1 ML VIAL SUBCUT SCH ×3 (05:00→22:11)
[2019-10-16] MEDS: PANTOPRAZOLE SODIUM 40 MG TABLET.DR PO SCH (05:01)
[2019-10-16] MEDS: LEVOTHYROXINE SODIUM 0.15 MG TABLET PO SCH (05:01)
[2019-10-16] MEDS: INSULIN LISPRO 100 UNIT/ML 3 ML VIAL SUBCUT SCH ×4 (08:20→22:02)
[2019-10-16] MEDS: DEXTROSE 50%-WATER 25 GM/50 ML DISP.SYRIN IV PRN ×3 (08:25→18:26)
[2019-10-16] MEDS ORDERED: FENTANYL CITRATE INJ/PF 100 MCG/2 ML AMPUL ONE (09:17)
[2019-10-16] MEDS ORDERED: MIDAZOLAM 2 MG/2 ML INJ ONE (09:17)
[2019-10-16] MEDS ORDERED: PROPOFOL INJ 200 MG/20 ML VIAL IV ONE (09:17)
[2019-10-16] MEDS ORDERED: MEPERIDINE HCL/PF INJ 25 MG/1 ML DISP.SYRIN IV PRN (09:27)
[2019-10-16] MEDS ORDERED: FENTANYL CITRATE INJ/PF 100 MCG/2 ML AMPUL IV PRN ×3 (09:27)
[2019-10-16] MEDS ORDERED: DIPHENHYDRAMINE HCL 50 MG/ML VIAL IV PRN (09:27)
[2019-10-16] MEDS ORDERED: PROMETHAZINE HCL INJ 25 MG/1 ML VIAL IV PRN (09:27)
[2019-10-16] MEDS ORDERED: MORPHINE SULFATE 10 MG/ML INJ IV PRN (09:27)
[2019-10-16] MEDS ORDERED: CEFAZOLIN INJ 1 GM VIAL ONE (10:07)
--- NOTE | 2019-10-16 12:11 | Operative Report ---
Operative Report DATE OF SURGERY: 10/16/19 PREOPERATIVE DIAGNOSIS: Right intertrochanteric hip fracture POSTOPERATIVE DIAGNOSIS: Same OPERATION: Right hip cephalo-medullary nail intertrochanteric fracture SURGEON: BRYANT PALMA ANESTHESIA: Spinal COMPLICATIONS: None ESTIMATED BLOOD LOSS: 50cc PROCEDURE: Indication for above procedure: 78-year-old female who sustained a fall at home while in the bathroom. Patient typically ambulates with a rolling walker but has difficulty maneuvering in the house. Patient was seen at the emergency room where x-rays demonstrated intertrochanteric fracture. At that point we discussed treatment options including operative versus nonoperative intervention risks and benefits of each were explained patient verbalized understanding and consented for surgical procedure. Procedure in detail: Patient was seen and evaluated in the preoperative holding area. The right lower extremity was initialized and marked. Patient received 2 g Ancef IV for bacterial prophylaxis. Patient was taken back to the operative room where transferred operative table. Patient was placed under spinal anesthesia. Once adequate anesthetized he was carefully placed onto the hip positioner the nonoperative lower extremity and bilateral upper extremities were carefully padded and the peroneal nerve was padded and on the nonoperative extremity. The operative extremity was placed in a traction along with adduction and internal rotation. A surgical team debriefing was performed ensuring all instrumentation was available, the surgical procedure was discussed with possible concerns reviewed. A timeout was done identifying correct patient, procedure and extremity everyone in attendance agree with this and verbalized no concerns. Reduction maneuver with the use of the hip traction table were done and C-arm fluoroscopy was used to confirm optimal reduction of the intertrochanteric fracture. Once this was confirmed the lower extremity was prepped with chlor prep and draped in a sterile fashion. At this point a small skin incision was made proximal to the greater trochanter. The guidewire was placed onto the tip of the trochanter advanced down to the level of the lesser trochanter. AP and lateral fluoroscopy was used to confirm appropriate placement of the guidewire. The skin incision was then extended and the underlying fascia opened up carefully to the tip of the greater trochanter. The entry reamer was then used and advanced to the level of the lesser trochanter. At this point [place] short gamma nail was opened up and placed onto the aiming arm and advanced down the shaft of the femur. AP and lateral fluoroscopy was then used to confirm appropriate placement of the nail. Then turned my attention to the compression screw fixation in the femoral head. The trochars were advanced to the skin, a skin incision was made, careful dissection down to the fascia to the lateral femoral cortex was then partaken. Was advanced while maintaining reduction of the fracture and attempt to obtain center-center alignment with tip apex distance less than 25 degrees. Once this position was obtained the size of the compression screw was measured. AP and lateral fluoroscopy used to confirm appropriate placement of our guide wire. A derotational pin was then placed as the step reamer was used to drill up through the femoral neck and head. I then carefully advanced the compression screw into position maintaining fixation with a derotational pin. AP and lateral fluoroscopy was done to confirm appropriate placement of the compression screw this was then locked into position proximally. The compression screw was then disengaged from its mounting device and the guidewire was removed. Lastly proceeded with locking of the nail distally. Using the aiming arm the trochars were advanced to the skin, a skin incision was made. Careful dissection done with a hemostat to the lateral cortex of the femur. I then drilled the near and far cortices. Measured the appropriate sized distal locking screw and secured it into position. At this point AP/lateral and oblique views of the proximal and distal aspect of the nail were taken confirming appropriate placement of the compression screw, distal locking screw and intramedullary nail. Once this was confirmed I proceeded with copious irrigation of the proximal and distal wounds. The deep tissues were closed with 2-0 Vicryl suture, subcutaneous tissues were closed with 3-0 Monocryl suture. The skin was closed a running 3-0 subcuticular Monocryl suture and reinforced with Dermabond & Steri-Strips. A dressing was placed. Sponge counts, instrument counts and needle counts were correct. Patient was then transferred from the operating room table to the operating room stretcher. The was no intraoperative complications patient tolerated procedure well was stable to PACU. Implants used: Mona 11 x 180 mm 125 Short Gamma Nail with a 90 mm compression screw Postoperative plan: Patient will begin physical therapy on postop day #1 with heparin.
[2019-10-16] MEDS ORDERED: PHENYLEPHRINE HCL INJ/PF 10 MG/1 ML SDV ONE (13:16)
--- NOTE | 2019-10-16 13:17 | RADIOLOGY REPORT (SQ) ---
EXAM DESCRIPTION: HIP IN OPERATING RM IMAGES COMPLETED DATE/TIME: 10/16/2019 1:05 pm REASON FOR STUDY: ORIF RIGHT HIP ASSISTED WITH FLUOROSCOPY IN OR COMPARISON: None. FLUOROSCOPY TIME: 1.5 minutes Spot images saved to PACS. TECHNIQUE: Intra-operative images acquired during surgical procedure to evaluate progress. NUMBER OF IMAGES: 6 LIMITATIONS: None. FINDINGS: Fluoroscopy was provided for intraoperative procedure. Please refer to the operative repo rt for further discussion. IMPRESSION: IMAGE(S) OBTAINED DURING PROCEDURE. COMMENT: Quality ID [id number]: Final reports for procedures using fluoroscopy that document radiation exp osure indices, or exposure time and number of fluorographic images (if radiation exposure indices are not available) Please consult full operative report of the attending physician for description of the procedure. TECHNICAL DOCUMENTATION: JOB ID: [id number] 2010 [employer]- All Rights Reserved Reading location - IP/workstation name: [email or web address]
--- NOTE | 2019-10-16 18:45 | PDOC PROGRESS REPORT ---
Subjective Progress Note for:: 10/16/19 Subjective:: Patient seen by the bedside had right hip joint, nailing procedure done today by orthopedic, she was seen in the room, complaining of pain in the right hip joint. Reason For Visit: CLOSED INTERTROCHANTERIC FRACTURE R FEMUR,CHRONIC Physical Exam Vital Signs: Temp Pulse Resp BP Pulse Ox 97.9 F 70 14 116/58 L 94 10/16/19 14:45 10/16/19 14:45 10/16/19 14:45 10/16/19 14:45 10/16/19 14:45 Intake & Output 10/15/19 10/16/19 10/17/19 06:59 06:59 06:59 Intake Total 0 250 1200 Output Total 0 1000 250 Balance 0 -750 950 Weight 58.5 kg 56.6 kg General appearance: PRESENT: no acute distress Eye exam: PRESENT: PERRLA Respiratory exam: PRESENT: clear to auscultation debbie Cardiovascular exam: PRESENT: rubs, +S1, +S2 GI/Abdominal exam: PRESENT: soft Neurological exam: PRESENT: alert, CN II-XII grossly intact Results Laboratory Results: 10/15/19 04:58 10/16/19 09:12 10/16/19 09:12 Potassium 4.1 10/14/19 10/14/19 14:24 14:24 Creatine Kinase 26 L Troponin I 0.014 Impressions: Hip/Pelvis X-Ray 10/14/19 12:09 IMPRESSION: Acute comminuted intertrochanteric right proximal femoral fracture with varus angulation Chest X-Ray 10/14/19 12:30 IMPRESSION: Stable cardiomegaly Trace right pleural fluid No gross acute infiltrates Head CT 10/14/19 12:32 IMPRESSION: No significant interval change. Mild chronic small vessel ischemic change and mild cerebral and cerebellar atrophy, stable. No acute intracranial hemorrhage, mass, or evidence of acute territorial infarct. EVIDENCE OF ACUTE STROKE: NO. Cervical Spine CT 10/14/19 12:33 IMPRESSION: CHRONIC DEGENERATIVE CHANGES. NO ACUTE FINDINGS. Abdomen/Pelvis CT 10/14/19 12:37 IMPRESSION: 1. Acute impacted intertrochanteric fracture right proximal femur. 2. Left lower lobe consolidation and small left pleural effusion. Finding may represent infectious/ inflammatory process. 3. Severe cardiomegaly with moderate pericardial effusion. 4. Colonic diverticulosis without evidence of diverticulitis. Hip X-Ray 10/16/19 00:00 IMPRESSION: IMAGE(S) OBTAINED DURING PROCEDURE. Assessment & Plan - Diagnosis (1) Displaced intertrochanteric fracture of right femur, initial encounter for closed fracture Is this a current diagnosis for this admission?: Yes Plan: Continue treatment (2) End stage renal disease Is this a current diagnosis for this admission?: Yes Plan: Per nephrology - Time Time Spent with patient: 25-34 minutes
[2019-10-17] MEDS ORDERED: EPOETIN ALFA-EPBX 2,000 UNIT, EPOETIN ALFA-EPBX 3,000 UNIT, EPOETIN ALFA-EPBX 20,000 UN... IV PRN ×4 (05:00)
[2019-10-17 05:14] LABS: HEMATOCRIT 26.5 % (36.0-47.0); HEMOGLOBIN 8.7 g/dL (12.0-15.5); MEAN CORPUSCULAR HEMOGLOBIN 32.6 pg (27.0-33.4); MEAN CORPUSCULAR HGB CONC 32.9 g/dL (32.0-36.0); MEAN CORPUSCULAR VOLUME 99 fl (80-97); PLATELET COUNT 241 10^3/uL (150-450); RED BLOOD COUNT 2.67 10^6/uL (3.72-5.28); RED CELL DISTRIBUTION WIDTH 17.8 % (11.5-14.0)
[2019-10-17] MEDS: LEVOTHYROXINE SODIUM 0.15 MG TABLET PO SCH (05:37)
[2019-10-17] MEDS: HEPARIN SOD (PORCINE) 5,000 UNIT/ML 1 ML VIAL SUBCUT SCH ×3 (05:37→21:42)
[2019-10-17] MEDS: PANTOPRAZOLE SODIUM 40 MG TABLET.DR PO SCH (05:37)
[2019-10-17 05:52] LABS: ANION GAP 5 (5-19); BLOOD UREA NITROGEN 16 mg/dL (7-20); CARBON DIOXIDE 29 mmol/L (22-30); CHLORIDE 106 mmol/L (98-107); GLUCOSE 92 mg/dL (75-110); POTASSIUM 3.9 mmol/L (3.6-5.0)
[2019-10-17] MEDS: MORPHINE SULFATE 10 MG/ML INJ IV PRN ×3 (05:52→21:36)
--- NOTE | 2019-10-17 07:18 | PDOC PROGRESS REPORT ---
Subjective Progress Note for:: 10/17/19 Reason For Visit: CLOSED INTERTROCHANTERIC FRACTURE R FEMUR,CHRONIC 78-year-old female now postop day 1 status post open reduction internal fixation of a right intratrochanteric femur fracture yesterday. No events overnight. Patient is off the floor this morning for dialysis. Operatory values are notable for hematocrit of 26.5% Physical Exam Vital Signs: Temp Pulse Resp BP Pulse Ox 36.7 C 74 19 137/43 H 98 10/17/19 04:07 10/17/19 06:52 10/17/19 04:07 10/17/19 04:07 10/17/19 04:07 Pulse Oximeter Continuous Start: 10/16/19 14:26 Freq: RTQ4 Status: Active Protocol: Document 10/17/19 04:00 LRO (Rec: 10/17/19 04:38 LRO [id number]) Pulse Oximetry Assessment Oxygen Saturation (92-100) 96 Oxygen Flow Rate (L/min) 2 Oxygen Delivery Method Nasal Cannula Fraction of Inspired Oxygen (FIO2) 28 Equipment Usage Equipment in Use Continuous SpO2 Machine # 11 Intake & Output 10/16/19 10/17/19 10/18/19 06:59 06:59 06:59 Intake Total 250 1200 Output Total 1000 250 Balance -750 950 Weight 56.6 kg 57.7 kg Physical Exam: Patient is off the floor for dialysis this morning Results Laboratory Results: 10/17/19 04:51 10/17/19 04:51 10/16/19 10/17/19 10/17/19 09:12 04:51 04:51 WBC 9.0 RBC 2.67 L Hgb 8.7 L Hct 26.5 L MCV 99 H MCH 32.6 MCHC 32.9 RDW 17.8 H Plt Count 241 Sodium 140.0 Potassium 4.1 3.9 Chloride 106 Carbon Dioxide 29 Anion Gap 5 BUN 16 Creatinine 4.99 H Est GFR ( Amer) 10 L Glucose 92 Calcium 9.0 10/14/19 10/14/19 14:24 14:24 Creatine Kinase 26 L Troponin I 0.014 Impressions: Hip/Pelvis X-Ray 10/14/19 12:09 IMPRESSION: Acute comminuted intertrochanteric right proximal femoral fracture with varus angulation Chest X-Ray 10/14/19 12:30 IMPRESSION: Stable cardiomegaly Trace right pleural fluid No gross acute infiltrates Head CT 10/14/19 12:32 IMPRESSION: No significant interval change. Mild chronic small vessel ischemic change and mild cerebral and cerebellar atrophy, stable. No acute intracranial hemorrhage, mass, or evidence of acute territorial infarct. EVIDENCE OF ACUTE STROKE: NO. Cervical Spine CT 10/14/19 12:33 IMPRESSION: CHRONIC DEGENERATIVE CHANGES. NO ACUTE FINDINGS. Abdomen/Pelvis CT 10/14/19 12:37 IMPRESSION: 1. Acute impacted intertrochanteric fracture right proximal femur. 2. Left lower lobe consolidation and small left pleural effusion. Finding may represent infectious/ inflammatory process. 3. Severe cardiomegaly with moderate pericardial effusion. 4. Colonic diverticulosis without evidence of diverticulitis. Hip X-Ray 10/16/19 00:00 IMPRESSION: IMAGE(S) OBTAINED DURING PROCEDURE. Status: Imported from PACS Assessment & Plan - Diagnosis (1) Closed intertrochanteric fracture of right femur Qualifiers: Encounter type: initial encounter Fracture alignment: displaced Qualified Code(s): S72.141A - Displaced intertrochanteric fracture of right femur, initial encounter for closed fracture Is this a current diagnosis for this admission?: Yes Plan: Mobilize with physical therapy and weightbearing as tolerated basis. - Time Time Spent with patient: 15-24 minutes Anticipated discharge: Other Within: Other
[2019-10-17] MEDS: INSULIN LISPRO 100 UNIT/ML 3 ML VIAL SUBCUT SCH ×3 (08:43→17:19)
--- NOTE | 2019-10-17 11:24 | PDOC PROGRESS REPORT ---
Subjective Progress Note for:: 10/17/19 Reason For Visit: Patient seen on dialysis today. Undergoing dialysis well. She is status post right ORIF yesterday successfully. States pain in the right side is better. Vital signs are stable. Labs and medications were reviewed. Dialysis orders were reviewed with the treating dialysis nurse. Physical Exam Vital Signs: Temp Pulse Resp BP Pulse Ox 98.0 F 74 19 137/43 H 98 10/17/19 04:07 10/17/19 06:52 10/17/19 04:07 10/17/19 04:07 10/17/19 04:07 Pulse Oximeter Continuous Start: 10/16/19 14:26 Freq: RTQ4 Status: Active Protocol: Document 10/17/19 04:00 LRO (Rec: 10/17/19 04:38 LRO [id number]) Pulse Oximetry Assessment Oxygen Saturation (92-100) 96 Oxygen Flow Rate (L/min) 2 Oxygen Delivery Method Nasal Cannula Fraction of Inspired Oxygen (FIO2) 28 Equipment Usage Equipment in Use Continuous SpO2 Machine # 11 Intake & Output 10/16/19 10/17/19 10/18/19 06:59 06:59 06:59 Intake Total 250 1200 Output Total 1000 250 Balance -750 950 Weight 56.6 kg 57.7 kg General appearance: PRESENT: no acute distress Respiratory exam: PRESENT: clear to auscultation debbie, decreased breath sounds. ABSENT: crackles Cardiovascular exam: PRESENT: +S1, +S2 GI/Abdominal exam: PRESENT: normal bowel sounds, soft. ABSENT: organomegaly, tenderness Extremities exam: ABSENT: pedal edema Neurological exam: PRESENT: alert, awake, oriented to person, oriented to place Results Laboratory Results: 10/17/19 04:51 10/17/19 04:51 10/17/19 10/17/19 04:51 04:51 WBC 9.0 RBC 2.67 L Hgb 8.7 L Hct 26.5 L MCV 99 H MCH 32.6 MCHC 32.9 RDW 17.8 H Plt Count 241 Sodium 140.0 Potassium 3.9 Chloride 106 Carbon Dioxide 29 Anion Gap 5 BUN 16 Creatinine 4.99 H Est GFR ( Amer) 10 L Glucose 92 Calcium 9.0 10/14/19 10/14/19 14:24 14:24 Creatine Kinase 26 L Troponin I 0.014 Impressions: Hip/Pelvis X-Ray 10/14/19 12:09 IMPRESSION: Acute comminuted intertrochanteric right proximal femoral fracture with varus angulation Chest X-Ray 10/14/19 12:30 IMPRESSION: Stable cardiomegaly Trace right pleural fluid No gross acute infiltrates Head CT 10/14/19 12:32 IMPRESSION: No significant interval change. Mild chronic small vessel ischemic change and mild cerebral and cerebellar atrophy, stable. No acute intracranial hemorrhage, mass, or evidence of acute territorial infarct. EVIDENCE OF ACUTE STROKE: NO. Cervical Spine CT 10/14/19 12:33 IMPRESSION: CHRONIC DEGENERATIVE CHANGES. NO ACUTE FINDINGS. Abdomen/Pelvis CT 10/14/19 12:37 IMPRESSION: 1. Acute impacted intertrochanteric fracture right proximal femur. 2. Left lower lobe consolidation and small left pleural effusion. Finding may represent infectious/ inflammatory process. 3. Severe cardiomegaly with moderate pericardial effusion. 4. Colonic diverticulosis without evidence of diverticulitis. Hip X-Ray 10/16/19 00:00 IMPRESSION: IMAGE(S) OBTAINED DURING PROCEDURE. Assessment & Plan - Diagnosis (1) Closed intertrochanteric fracture of right femur Qualifiers: Encounter type: initial encounter Fracture alignment: displaced Qualified Code(s): S72.141A - Displaced intertrochanteric fracture of right femur, initial encounter for closed fracture Is this a current diagnosis for this admission?: Yes Plan: Status post right ORIF successfully and uneventfully. Orthopedics following. (2) End stage chronic kidney disease Plan: Patient currently undergoing dialysis without any issues. Vital signs are stable. Dialysis being supervised. Dialysis orders were reviewed with the treating dialysis nurse. Plan to remove less than a liter of fluid on ultra filtration. (3) Diabetes mellitus type 2 in obese Plan: As per primary care. (4) Anemia in chronic kidney disease Plan: Stable. Adjust erythropoietin. (5) Hypertension Qualifiers: Hypertension type: essential hypertension Qualified Code(s): I10 - Essential (primary) hypertension Plan: Stable
[2019-10-17] MEDS: DEXTROSE 50%-WATER 25 GM/50 ML DISP.SYRIN IV PRN ×2 (11:39→13:14)
--- NOTE | 2019-10-17 17:03 | PDOC PROGRESS REPORT ---
Subjective Progress Note for:: 10/17/19 Subjective:: Patient seen by the bedside status post ORIF, [facility] Reason For Visit: CLOSED INTERTROCHANTERIC FRACTURE R FEMUR,CHRONIC Physical Exam Vital Signs: Temp Pulse Resp BP Pulse Ox 97.6 F 70 17 135/47 H 97 10/17/19 11:30 10/17/19 13:58 10/17/19 11:30 10/17/19 11:30 10/17/19 13:21 Pulse Oximeter Continuous Start: 10/16/19 14:26 Freq: RTQ4 Status: Active Protocol: Document 10/17/19 13:21 [facility] (Rec: 10/17/19 13:21 [facility] [id number]) Pulse Oximetry Assessment Oxygen Saturation (92-100) 97 Oxygen Flow Rate (L/min) 1 Oxygen Delivery Method Nasal Cannula Equipment Usage Equipment in Use Continuous SpO2 Machine # 11 Intake & Output 10/16/19 10/17/19 10/18/19 06:59 06:59 06:59 Intake Total 250 1200 118 Output Total 6595 283 8151 Balance -750 950 -882 Weight 56.6 kg 57.7 kg General appearance: PRESENT: no acute distress Eye exam: PRESENT: PERRLA Respiratory exam: PRESENT: clear to auscultation debbie Cardiovascular exam: PRESENT: +S1, +S2 GI/Abdominal exam: PRESENT: soft Results Laboratory Results: 10/17/19 04:51 10/17/19 04:51 10/17/19 10/17/19 04:51 04:51 WBC 9.0 RBC 2.67 L Hgb 8.7 L Hct 26.5 L MCV 99 H MCH 32.6 MCHC 32.9 RDW 17.8 H Plt Count 241 Sodium 140.0 Potassium 3.9 Chloride 106 Carbon Dioxide 29 Anion Gap 5 BUN 16 Creatinine 4.99 H Est GFR ( Amer) 10 L Glucose 92 Calcium 9.0 10/14/19 10/14/19 14:24 14:24 Creatine Kinase 26 L Troponin I 0.014 Impressions: Hip/Pelvis X-Ray 10/14/19 12:09 IMPRESSION: Acute comminuted intertrochanteric right proximal femoral fracture with varus angulation Chest X-Ray 10/14/19 12:30 IMPRESSION: Stable cardiomegaly Trace right pleural fluid No gross acute infiltrates Head CT 10/14/19 12:32 IMPRESSION: No significant interval change. Mild chronic small vessel ischemic change and mild cerebral and cerebellar atrophy, stable. No acute intracranial hemorrhage, mass, or evidence of acute territorial infarct. EVIDENCE OF ACUTE STROKE: NO. Cervical Spine CT 10/14/19 12:33 IMPRESSION: CHRONIC DEGENERATIVE CHANGES. NO ACUTE FINDINGS. Abdomen/Pelvis CT 10/14/19 12:37 IMPRESSION: 1. Acute impacted intertrochanteric fracture right proximal femur. 2. Left lower lobe consolidation and small left pleural effusion. Finding may represent infectious/ inflammatory process. 3. Severe cardiomegaly with moderate pericardial effusion. 4. Colonic diverticulosis without evidence of diverticulitis. Hip X-Ray 10/16/19 00:00 IMPRESSION: IMAGE(S) OBTAINED DURING PROCEDURE. Assessment & Plan - Diagnosis (1) Displaced intertrochanteric fracture of right femur, initial encounter for closed fracture Is this a current diagnosis for this admission?: Yes (2) End stage renal disease Is this a current diagnosis for this admission?: Yes (3) Diabetes mellitus type 2 in obese Is this a current diagnosis for this admission?: Yes - Time Time Spent with patient: 25-34 minutes Level of Care: IMCU
[2019-10-18] MEDS: DEXTROSE 50%-WATER 25 GM/50 ML DISP.SYRIN IV PRN ×3 (01:15→23:34)
[2019-10-18] MEDS: INSULIN LISPRO 100 UNIT/ML 3 ML VIAL SUBCUT SCH ×5 (01:51→22:40)
[2019-10-18] MEDS ORDERED: PHARMACY COMMUNICATION ORDER MC NR (02:30)
[2019-10-18] MEDS ORDERED: BENZOCAINE 20% AEROSOL SPRAY 60 GM TP ONE (04:00)
[2019-10-18] MEDS ORDERED: BENZOCAINE 20% AEROSOL SPRAY 60 GM ONE (04:12)
[2019-10-18] MEDS: MORPHINE SULFATE 10 MG/ML INJ IV PRN (05:00)
[2019-10-18] MEDS: HEPARIN SOD (PORCINE) 5,000 UNIT/ML 1 ML VIAL SUBCUT SCH ×3 (05:57→21:57)
[2019-10-18] MEDS: PANTOPRAZOLE SODIUM 40 MG PACKET.DR NG SCH (06:08)
[2019-10-18] MEDS: LEVOTHYROXINE SODIUM 0.15 MG TABLET NG SCH (06:08)
--- NOTE | 2019-10-18 07:37 | PDOC PROGRESS REPORT ---
Subjective Progress Note for:: 10/18/19 Reason For Visit: CLOSED INTERTROCHANTERIC FRACTURE R FEMUR,CHRONIC 78-year-old dialysis dependent black female now postop day 2 status post open reduction internal fixation of right intratrochanteric femur fracture. Patient with limited progress with physical therapy yesterday. Physical Exam Vital Signs: Temp Pulse Resp BP Pulse Ox 37.1 C 68 12 134/42 H 96 10/18/19 03:13 10/18/19 03:13 10/18/19 03:13 10/18/19 03:13 10/18/19 06:16 Pulse Oximeter Continuous Start: 10/16/19 14:26 Freq: RTQ4 Status: Active Protocol: Document 10/18/19 04:00 [facility] (Rec: 10/18/19 06:11 [facility] [id number]) Pulse Oximetry Assessment Oxygen Saturation (92-100) 96 Oxygen Flow Rate (L/min) 1 Oxygen Delivery Method Nasal Cannula Fraction of Inspired Oxygen (FIO2) 24 Equipment Usage Initial Set Up Continuous SpO2 Machine # 11 Intake & Output 10/17/19 10/18/19 10/19/19 06:59 06:59 06:59 Intake Total 1200 340 Output Total 250 1000 Balance 950 -660 Weight 57.7 kg 57 kg Physical Exam: Elderly frail-appearing black female who is awake but does not respond to my verbal stimuli. General appearance: PRESENT: no acute distress, thin Respiratory exam: PRESENT: unlabored Cardiovascular exam: PRESENT: RRR Vascular exam: PRESENT: normal capillary refill GI/Abdominal exam: PRESENT: soft Rectal exam: PRESENT: deferred Musculoskeletal exam: PRESENT: other - Right lower extremity dressings x3 are clean dry and intact. Leg lengths are equal. Brisk capillary refill to the great toe. Neurological exam: PRESENT: awake Skin exam: PRESENT: dry, intact, warm. ABSENT: cyanosis, rash Results Laboratory Results: 10/17/19 04:51 10/17/19 04:51 10/14/19 10/14/19 14:24 14:24 Creatine Kinase 26 L Troponin I 0.014 Impressions: Hip/Pelvis X-Ray 10/14/19 12:09 IMPRESSION: Acute comminuted intertrochanteric right proximal femoral fracture with varus angulation Chest X-Ray 10/14/19 12:30 IMPRESSION: Stable cardiomegaly Trace right pleural fluid No gross acute infiltrates Head CT 10/14/19 12:32 IMPRESSION: No significant interval change. Mild chronic small vessel ischemic change and mild cerebral and cerebellar atrophy, stable. No acute intracranial hemorrhage, mass, or evidence of acute territorial infarct. EVIDENCE OF ACUTE STROKE: NO. Cervical Spine CT 10/14/19 12:33 IMPRESSION: CHRONIC DEGENERATIVE CHANGES. NO ACUTE FINDINGS. Abdomen/Pelvis CT 10/14/19 12:37 IMPRESSION: 1. Acute impacted intertrochanteric fracture right proximal femur. 2. Left lower lobe consolidation and small left pleural effusion. Finding may represent infectious/ inflammatory process. 3. Severe cardiomegaly with moderate pericardial effusion. 4. Colonic diverticulosis without evidence of diverticulitis. Hip X-Ray 10/16/19 00:00 IMPRESSION: IMAGE(S) OBTAINED DURING PROCEDURE. Assessment & Plan - Diagnosis (1) Closed intertrochanteric fracture of right femur Qualifiers: Encounter type: initial encounter Fracture alignment: displaced Qualified Code(s): S72.141A - Displaced intertrochanteric fracture of right femur, initial encounter for closed fracture Is this a current diagnosis for this admission?: Yes Plan: Mobilize with physical therapy and weightbearing as tolerated basis. Anticipate transfer to a retirement facility when bed available. - Time Time Spent with patient: 15-24 minutes Anticipated discharge: SNF Within: when bed available
--- NOTE | 2019-10-18 13:21 | ADVANCED CARE ---
- Diagnosis (1) Displaced intertrochanteric fracture of right femur, initial encounter for closed fracture Diagnosis Current: Yes (2) End stage renal disease Diagnosis Current: Yes (3) Diabetes mellitus type 2 in obese Diagnosis Current: Yes Resuscitation Status: Do Not Resuscitate Discussion: I discussed CODE STATUS with patient's next of kin the daughter patient desires is to be a DNR
[2019-10-18 13:48] LABS: ABSOLUTE EOSINOPHILS # (AUTO) 0.1 10^3/uL (0.0-0.6); ABSOLUTE LYMPHOCYTES (AUTO) 0.4 10^3/uL (0.5-4.7); ABSOLUTE MONOCYTES (AUTO) 0.7 10^3/uL (0.1-1.4); ABSOLUTE NEUT (AUTO) 6.8 10^3/uL (1.7-8.2); BASOPHILS % (AUTO) 0.4 % (0-2); HEMATOCRIT 22.6 % (36.0-47.0); LYMPHOCYTES % (AUTO) 5.1 % (13-45); MEAN CORPUSCULAR HEMOGLOBIN 32.5 pg (27.0-33.4); MEAN CORPUSCULAR HGB CONC 33.1 g/dL (32.0-36.0); MEAN CORPUSCULAR VOLUME 98 fl (80-97); MONOCYTES % (AUTO) 8.4 % (3-13); PLATELET COUNT 223 10^3/uL (150-450); SEGMENTED NEUTROPHILS % (AUTO) 85.1 % (42-78); TOTAL CELLS COUNTED % (AUTO) 100 %
[2019-10-18 14:02] LABS: ALBUMIN 2.4 g/dL (3.5-5.0); ALKALINE PHOSPHATASE 168 U/L (38-126); ASPARTATE AMINO TRANSFERASE 94 U/L (14-36); BILIRUBIN,DIRECT 0.5 mg/dL (0.0-0.4); BILIRUBIN,TOTAL 0.7 mg/dL (0.2-1.3); BLOOD UREA NITROGEN 14 mg/dL (7-20); CALCIUM 8.7 mg/dL (8.4-10.2); GLUCOSE 102 mg/dL (75-110); POTASSIUM 3.6 mmol/L (3.6-5.0); TOTAL PROTEIN 5.3 g/dL (6.3-8.2)
[2019-10-18 14:07] LABS: CARBON DIOXIDE 34 mmol/L (22-30); CHLORIDE 101 mmol/L (98-107)
[2019-10-18 14:22] LABS: ANION GAP 3 (5-19)
[2019-10-18 14:24] LABS: HEMOGLOBIN 7.5 g/dL (12.0-15.5)
[2019-10-18] MEDS ORDERED: NORMAL SALINE 250 ML IV PRN ×2 (14:31)
[2019-10-18] MEDS: CEFTRIAXONE SODIUM 500 MG in NORMAL SALINE 25 ML IV SCH (15:05)
--- NOTE | 2019-10-18 18:38 | PDOC PROGRESS REPORT ---
Subjective Progress Note for:: 10/18/19 Subjective:: Patient's condition is very poor she is hardly responding to verbal conversation she has persistent hypoglycemia, difficult to insert feeding tube through the nasopharynx .I discussed patient's condition with the next of kin she narrated to me that her mother does not want any cardiac or any heroic resuscitation.She wants to be a DNR status, she is showing signs of infection, hypothermia, relatively low blood pressure persistent hypoglycemia septic work-up started , blood culture ,chest x-ray ,start empirically on Rocephin she also anemic requiring blood transfusion, no evidence of GI bleed Reason For Visit: CLOSED INTERTROCHANTERIC FRACTURE R FEMUR,CHRONIC Physical Exam Vital Signs: Temp Pulse Resp BP Pulse Ox 98.4 F 72 16 113/38 L 96 10/18/19 17:40 10/18/19 17:40 10/18/19 17:40 10/18/19 17:40 10/18/19 17:40 Pulse Oximeter Continuous Start: 10/16/19 14:26 Freq: RTQ4 Status: Active Protocol: Document 10/18/19 16:32 [facility] (Rec: 10/18/19 17:48 [facility] [id number]) Pulse Oximetry Assessment Oxygen Saturation (92-100) 98 Oxygen Flow Rate (L/min) 3 Oxygen Delivery Method Nasal Cannula Fraction of Inspired Oxygen (FIO2) 32 Equipment Usage Equipment in Use Continuous SpO2 Machine # 11 Intake & Output 10/17/19 10/18/19 10/19/19 06:59 06:59 06:59 Intake Total 1200 340 0 Output Total 250 1000 Balance 950 -660 0 Weight 57.7 kg 57 kg General appearance: PRESENT: no acute distress Respiratory exam: PRESENT: clear to auscultation debbie Cardiovascular exam: PRESENT: +S1, +S2 GI/Abdominal exam: PRESENT: soft Neurological exam: PRESENT: alert Results Laboratory Results: 10/18/19 13:25 10/18/19 13:25 10/18/19 10/18/19 10/18/19 13:25 13:25 15:36 WBC 8.0 RBC 2.30 L Hgb 7.5 L Hct 22.6 L MCV 98 H MCH 32.5 MCHC 33.1 RDW 18.0 H Plt Count 223 Seg Neutrophils % 85.1 H Sodium 138.1 Potassium 3.6 Chloride 101 Carbon Dioxide 34 H Anion Gap 3 L BUN 14 Creatinine 4.02 H Est GFR ( Amer) 13 L Glucose 102 Calcium 8.7 Total Bilirubin 0.7 AST 94 H Alkaline Phosphatase 168 H Total Protein 5.3 L Albumin 2.4 L Blood Type O POSITIVE Antibody Screen NEGATIVE 10/14/19 10/14/19 14:24 14:24 Creatine Kinase 26 L Troponin I 0.014 Impressions: Hip/Pelvis X-Ray 10/14/19 12:09 IMPRESSION: Acute comminuted intertrochanteric right proximal femoral fracture with varus angulation Chest X-Ray 10/14/19 12:30 IMPRESSION: Stable cardiomegaly Trace right pleural fluid No gross acute infiltrates Head CT 10/14/19 12:32 IMPRESSION: No significant interval change. Mild chronic small vessel ischemic change and mild cerebral and cerebellar atrophy, stable. No acute intracranial hemorrhage, mass, or evidence of acute territorial infarct. EVIDENCE OF ACUTE STROKE: NO. Cervical Spine CT 10/14/19 12:33 IMPRESSION: CHRONIC DEGENERATIVE CHANGES. NO ACUTE FINDINGS. Abdomen/Pelvis CT 10/14/19 12:37 IMPRESSION: 1. Acute impacted intertrochanteric fracture right proximal femur. 2. Left lower lobe consolidation and small left pleural effusion. Finding may represent infectious/ inflammatory process. 3. Severe cardiomegaly with moderate pericardial effusion. 4. Colonic diverticulosis without evidence of diverticulitis. Hip X-Ray 10/16/19 00:00 IMPRESSION: IMAGE(S) OBTAINED DURING PROCEDURE. Assessment & Plan - Diagnosis (1) Displaced intertrochanteric fracture of right femur, initial encounter for closed fracture Is this a current diagnosis for this admission?: Yes (2) End stage renal disease Is this a current diagnosis for this admission?: Yes (3) Diabetes mellitus type 2 in obese Is this a current diagnosis for this admission?: Yes (4) Anemia Qualifiers: Anemia type: unspecified type Qualified Code(s): D64.9 - Anemia, unspecifi ed Is this a current diagnosis for this admission?: Yes - Time Time Spent with patient: 35 or more minutes Level of Care: IMCU
--- NOTE | 2019-10-18 20:08 | RADIOLOGY REPORT (SQ) ---
EXAM DESCRIPTION: CHEST SINGLE VIEW IMAGES COMPLETED DATE/TIME: 10/18/2019 7:20 pm REASON FOR STUDY: sepsis COMPARISON: Chest films 10/14/2019, 01/17/2019 EXAM PARAMETERS: NUMBER OF VIEWS: One view. TECHNIQUE: Single frontal radiographic view of the chest acquired. RADIATION DOSE: NA LIMITATIONS: None. FINDINGS: LUNGS AND PLEURA: Chronic left pleural thickening in the lateral costophrenic sulcus. No acute infiltrates or pleural effusions. No pneumothorax. MEDIASTINUM AND HILAR STRUCTURES: No masses. Contour normal. HEART AND VASCULAR STRUCTURES: Stable marked cardiomegaly BONES: No acute findings. HARDWARE: Surgical clips left arm for AV fistula OTHER: No other significant finding. IMPRESSION: NO ACUTE RADIOGRAPHIC FINDING IN THE CHEST. TECHNICAL DOCUMENTATION: JOB ID: [id number] 2010 [employer]- All Rights Reserved Reading location - IP/workstation name: [id number]
[2019-10-18] MEDS: DEXTROSE 40% GEL 15 GM TUBE PO PRN (23:34)
[2019-10-18 23:48] LABS: HEMATOCRIT 31.2 % (36.0-47.0); MEAN CORPUSCULAR HEMOGLOBIN 31.4 pg (27.0-33.4); MEAN CORPUSCULAR HGB CONC 33.1 g/dL (32.0-36.0); MEAN CORPUSCULAR VOLUME 95 fl (80-97); PLATELET COUNT 218 10^3/uL (150-450); RED BLOOD COUNT 3.29 10^6/uL (3.72-5.28); RED CELL DISTRIBUTION WIDTH 21.6 % (11.5-14.0)
[2019-10-18 23:54] LABS: HEMOGLOBIN 10.3 g/dL (12.0-15.5)
[2019-10-19] MEDS: DEXTROSE 50%-WATER 25 GM/50 ML DISP.SYRIN IV PRN (03:30)
[2019-10-19] MEDS ORDERED: EPOETIN ALFA-EPBX 30,000 UNIT in SYRINGE, DISPOSABLE, 1 EACH IV PRN (05:00)
[2019-10-19] MEDS: PANTOPRAZOLE SODIUM 40 MG PACKET.DR NG SCH (05:26)
[2019-10-19] MEDS: HEPARIN SOD (PORCINE) 5,000 UNIT/ML 1 ML VIAL SUBCUT SCH ×3 (05:27→21:17)
[2019-10-19] MEDS: LEVOTHYROXINE SODIUM 0.15 MG TABLET NG SCH (05:27)
[2019-10-19 05:32] LABS: HEMATOCRIT 32.1 % (36.0-47.0); HEMOGLOBIN 10.6 g/dL (12.0-15.5); MEAN CORPUSCULAR HEMOGLOBIN 31.1 pg (27.0-33.4); MEAN CORPUSCULAR HGB CONC 33.1 g/dL (32.0-36.0); MEAN CORPUSCULAR VOLUME 94 fl (80-97); PLATELET COUNT 203 10^3/uL (150-450); RED BLOOD COUNT 3.42 10^6/uL (3.72-5.28); RED CELL DISTRIBUTION WIDTH 21.8 % (11.5-14.0); WHITE BLOOD COUNT 7.3 10^3/uL (4.0-10.5)
[2019-10-19 05:53] LABS: ANION GAP 5 (5-19); BLOOD UREA NITROGEN 19 mg/dL (7-20); CALCIUM 8.9 mg/dL (8.4-10.2); CARBON DIOXIDE 31 mmol/L (22-30); CHLORIDE 101 mmol/L (98-107); GLUCOSE 110 mg/dL (75-110); POTASSIUM 3.8 mmol/L (3.6-5.0)
--- NOTE | 2019-10-19 07:42 | PDOC PROGRESS REPORT ---
Subjective Progress Note for:: 10/19/19 Subjective:: Patient seen in dialysis. Currently laying in bed comfortably. Has no complaints currently. Reason For Visit: CLOSED INTERTROCHANTERIC FRACTURE R FEMUR,CHRONIC Physical Exam Vital Signs: Temp Pulse Resp BP Pulse Ox 97.4 F 65 18 131/46 H 100 10/19/19 03:55 10/19/19 03:55 10/19/19 03:55 10/19/19 03:55 10/19/19 04:46 Pulse Oximeter Continuous Start: 10/16/19 14:26 Freq: RTQ4 Status: Active Protocol: Document 10/19/19 04:46 [facility] (Rec: 10/19/19 04:46 [facility] [id number]) Pulse Oximetry Assessment Oxygen Saturation (92-100) 100 Oxygen Flow Rate (L/min) 4 Oxygen Delivery Method Nasal Cannula Fraction of Inspired Oxygen (FIO2) 36 Equipment Usage Equipment Standby Continuous SpO2 Machine # 11 Intake & Output 10/18/19 10/19/19 10/20/19 06:59 06:59 06:59 Intake Total 340 375 Output Total 1000 0 Balance -660 375 Weight 57 kg 75.5 kg Musculoskeletal exam: PRESENT: other - Right hip: Dressing clean/dry/intact no erythema or drainage. Moderate thigh swelling without change, intact plantarflexion/dorsiflexion. No sensory deficits. No calf tenderness. Results Laboratory Results: 10/19/19 04:47 10/19/19 04:47 10/18/19 10/18/19 10/18/19 13:25 13:25 15:36 WBC 8.0 RBC 2.30 L Hgb 7.5 L Hct 22.6 L MCV 98 H MCH 32.5 MCHC 33.1 RDW 18.0 H Plt Count 223 Seg Neutrophils % 85.1 H Sodium 138.1 Potassium 3.6 Chloride 101 Carbon Dioxide 34 H Anion Gap 3 L BUN 14 Creatinine 4.02 H Est GFR ( Amer) 13 L Glucose 102 Calcium 8.7 Total Bilirubin 0.7 AST 94 H Alkaline Phosphatase 168 H Total Protein 5.3 L Albumin 2.4 L Blood Type O POSITIVE Antibody Screen NEGATIVE 10/18/19 10/19/19 10/19/19 23:32 04:47 04:47 WBC 9.0 7.3 RBC 3.29 L 3.42 L Hgb 10.3 L D 10.6 L Hct 31.2 L 32.1 L MCV 95 94 MCH 31.4 31.1 MCHC 33.1 33.1 RDW 21.6 H 21.8 H Plt Count 218 203 Seg Neutrophils % Sodium 136.8 L Potassium 3.8 Chloride 101 Carbon Dioxide 31 H Anion Gap 5 BUN 19 Creatinine 4.69 H Est GFR ( Amer) 11 L Glucose 110 Calcium 8.9 Total Bilirubin AST Alkaline Phosphatase Total Protein Albumin Blood Type Antibody Screen 10/14/19 10/14/19 14:24 14:24 Creatine Kinase 26 L Troponin I 0.014 Impressions: Hip/Pelvis X-Ray 10/14/19 12:09 IMPRESSION: Acute comminuted intertrochanteric right proximal femoral fracture with varus angulation Head CT 10/14/19 12:32 IMPRESSION: No significant interval change. Mild chronic small vessel ischemic change and mild cerebral and cerebellar atrophy, stable. No acute intracranial hemorrhage, mass, or evidence of acute territorial infarct. EVIDENCE OF ACUTE STROKE: NO. Cervical Spine CT 10/14/19 12:33 IMPRESSION: CHRONIC DEGENERATIVE CHANGES. NO ACUTE FINDINGS. Abdomen/Pelvis CT 10/14/19 12:37 IMPRESSION: 1. Acute impacted intertrochanteric fracture right proximal femur. 2. Left lower lobe consolidation and small left pleural effusion. Finding may r epresent infectious/ inflammatory process. 3. Severe cardiomegaly with moderate pericardial effusion. 4. Colonic diverticulosis without evidence of diverticulitis. Hip X-Ray 10/16/19 00:00 IMPRESSION: IMAGE(S) OBTAINED DURING PROCEDURE. Chest X-Ray 10/18/19 00:00 IMPRESSION: NO ACUTE RADIOGRAPHIC FINDING IN THE CHEST. Assessment & Plan - Diagnosis (1) Closed intertrochanteric fracture of right femur Qualifiers: Encounter type: initial encounter Fracture alignment: displaced Qualified Code(s): S72.141A - Displaced intertrochanteric fracture of right femur, initial encounter for closed fracture Is this a current diagnosis for this admission?: Yes Plan: Status post right hip intramedullary nail 1. Mobilize with physical therapy and weightbearing as tolerated basis, limited physical therapy secondary to patient's multiple comorbidities and mental status. 2. Acute on chronic anemia 3. Continue heparin for DVT prophylaxis 4. Discharge planning: Anticipate transfer to a [facility] facility when bed available. - Time Time Spent with patient: Less than 15 minutes
[2019-10-19] MEDS: INSULIN LISPRO 100 UNIT/ML 3 ML VIAL SUBCUT SCH ×4 (08:59→21:17)
--- NOTE | 2019-10-19 11:27 | PDOC PROGRESS REPORT ---
Subjective Progress Note for:: 10/19/19 Subjective:: I saw the patient on dialysis this morning. Patient is kind of lethargic. Apparently she is not eating very well so she is currently on D5 half-normal at 30 mL an hour to prevent hypoglycemic episodes. Patient states that she is doing fine and verbalized no complaints at all. She is tolerating dialysis well without any problems. Reason For Visit: CLOSED INTERTROCHANTERIC FRACTURE R FEMUR,CHRONIC Physical Exam Vital Signs: Temp Pulse Resp BP Pulse Ox 97.4 F 65 18 131/46 H 100 10/19/19 03:55 10/19/19 03:55 10/19/19 03:55 10/19/19 03:55 10/19/19 04:46 Pulse Oximeter Continuous Start: 10/16/19 14:26 Freq: RTQ4 Status: Active Protocol: Document 10/19/19 04:46 CMI (Rec: 10/19/19 04:46 CMI [email or web address]) Pulse Oximetry Assessment Oxygen Saturation (92-100) 100 Oxygen Flow Rate (L/min) 4 Oxygen Delivery Method Nasal Cannula Fraction of Inspired Oxygen (FIO2) 36 Equipment Usage Equipment Standby Continuous SpO2 Machine # 11 Intake & Output 10/18/19 10/19/19 10/20/19 06:59 06:59 06:59 Intake Total 340 375 Output Total 1000 0 Balance -660 375 Weight 57 kg 75.5 kg Vitals during dialysis: Blood pressure 104/42, heart rate of 61, blood flow rate of 450 mL/min and dialysate flow rate of 800 mL/min. Exam: General appearance: PRESENT: no acute distress, cooperative, fairly-developed, fairly-nourished Head exam: PRESENT: atraumatic, normocephalic Eye exam: PRESENT: conjunctiva pale, PERRLA. Legally blind ABSENT: scleral icterus Neck exam: ABSENT: JVD Respiratory exam: PRESENT: Diminished breath sounds. ABSENT: crackles, rales, rhonchi, unlabored, wheezes Cardiovascular exam: PRESENT: Regular rate rhythm -+S1, +S2. ABSENT: diastolic murmur, systolic murmur GI/Abdominal exam: PRESENT: normal bowel sounds, soft. ABSENT: guarding, mass, tenderness Extremities exam: ABSENT: No edema Neurological exam: PRESENT: alert, awake, oriented to person, place and time. Skin exam: PRESENT: dry, warm, Cardiovascular exam: PRESENT: +S1, +S2 GI/Abdominal exam: PRESENT: normal bowel sounds, soft. ABSENT: organomegaly, tenderness Results Laboratory Results: 10/19/19 04:47 10/19/19 04:47 10/18/19 10/18/19 10/18/19 13:25 13:25 15:36 WBC 8.0 RBC 2.30 L Hgb 7.5 L Hct 22.6 L MCV 98 H MCH 32.5 MCHC 33.1 RDW 18.0 H Plt Count 223 Seg Neutrophils % 85.1 H Sodium 138.1 Potassium 3.6 Chloride 101 Carbon Dioxide 34 H Anion Gap 3 L BUN 14 Creatinine 4.02 H Est GFR ( Amer) 13 L Glucose 102 Calcium 8.7 Total Bilirubin 0.7 AST 94 H Alkaline Phosphatase 168 H Total Protein 5.3 L Albumin 2.4 L Blood Type O POSITIVE Antibody Screen NEGATIVE 10/18/19 10/19/19 10/19/19 23:32 04:47 04:47 WBC 9.0 7.3 RBC 3.29 L 3.42 L Hgb 10.3 L D 10.6 L Hct 31.2 L 32.1 L MCV 95 94 MCH 31.4 31.1 MCHC 33.1 33.1 RDW 21.6 H 21.8 H Plt Count 218 203 Seg Neutrophils % Sodium 136.8 L Potassium 3.8 Chloride 101 Carbon Dioxide 31 H Anion Gap 5 BUN 19 Creatinine 4.69 H Est GFR ( Amer) 11 L Glucose 110 Calcium 8.9 Total Bilirubin AST Alkaline Phosphatase Total Protein Albumin Blood Type Antibody Screen 10/14/19 10/14/19 14:24 14:24 Creatine Kinase 26 L Troponin I 0.014 Impressions: Hip/Pelvis X-Ray 10/14/19 12:09 IMPRESSION: Acute comminuted intertrochanteric right proximal femoral fracture with varus angulation Head CT 10/14/19 12:32 IMPRESSION: No significant interval change. Mild chronic small vessel ischemic change and mild cerebral and cerebellar atrophy, stable. No acute intracranial hemorrhage, mass, or evidence of acute territorial infarct. EVIDENCE OF ACUTE STROKE: NO. Cervical Spine CT 10/14/19 12:33 IMPRESSION: CHRONIC DEGENERATIVE CHANGES. NO ACUTE FINDINGS. Abdomen/Pelvis CT 10/14/19 12:37 IMPRESSION: 1. Acute impacted intertrochanteric fracture right proximal femur. 2. Left lower lobe consolidation and small left pleural effusion. Finding may represent infectious/ inflammatory process. 3. Severe cardiomegaly with moderate pericardial effusion. 4. Colonic diverticulosis without evidence of diverticulitis. Hip X-Ray 10/16/19 00:00 IMPRESSION: IMAGE(S) OBTAINED DURING PROCEDURE. Chest X-Ray 10/18/19 00:00 IMPRESSION: NO ACUTE RADIOGRAPHIC FINDING IN THE CHEST. Assessment & Plan - Diagnosis (1) End stage renal disease on dialysis Is this a current diagnosis for this admission?: Yes Plan: We will do dialysis today for 3 hours, using the patient's AV fistula, with 3 potassium bath, blood flow rate of 450 mL per minute, dialysate flow rate of 800 mL per minute, ultrafiltration 1 L as tolerated, no heparin and no Procrit. Patient is being monitored throughout dialysis treatment. (2) Closed intertrochanteric fracture of right femur Qualifiers: Encounter type: initial encounter Fracture alignment: displaced Qualified Code(s): S72.141A - Displaced intertrochanteric fracture of right femur, initial encounter for closed fracture Is this a current diagnosis for this admission?: Yes Plan: Status post ORIF on . Patient will need physical therapy and likely prison facility placement for rehab. (3) Anemia in chronic kidney disease Is this a current diagnosis for this admission?: Yes Plan: We will give Retacrit during dialysis as needed. (4) Diabetes mellitus type 2 in nonobese Is this a current diagnosis for this admission?: Yes Plan: Currently the patient has poor oral intake requiring D5 half-normal infusion with a minimal rate to prevent volume overload. (5) Hypertension Qualifiers: Hypertension type: essential hypertension Qualified Code(s): I10 - Essential (primary) hypertension Is this a current diagnosis for this admission?: Yes Plan: Controlled. - Time Time with patient: 15-25 minutes
[2019-10-19] MEDS: CEFTRIAXONE SODIUM 500 MG in NORMAL SALINE 25 ML IV SCH (12:48)
--- NOTE | 2019-10-19 19:48 | PDOC PROGRESS REPORT ---
Subjective Progress Note for:: 10/19/19 Subjective:: Patient seen by the bedside, she was dialyzed today, she continues to have very poor intake, patient's daughter told me that oral intake has been diminished even before this admission, overall poor prognosis, she has underlining dementia, she is a DNR status. Reason For Visit: CLOSED INTERTROCHANTERIC FRACTURE R FEMUR,CHRONIC Physical Exam Vital Signs: Temp Pulse Resp BP Pulse Ox 97.9 F 64 15 105/32 L 93 10/19/19 16:11 10/19/19 16:11 10/19/19 16:11 10/19/19 16:11 10/19/19 16:11 Pulse Oximeter Continuous Start: 10/16/19 14:26 Freq: RTQ4 Status: Active Protocol: Document 10/19/19 04:46 CMI (Rec: 10/19/19 04:46 CMI [email or web address]) Pulse Oximetry Assessment Oxygen Saturation (92-100) 100 Oxygen Flow Rate (L/min) 4 Oxygen Delivery Method Nasal Cannula Fraction of Inspired Oxygen (FIO2) 36 Equipment Usage Equipment Standby Continuous SpO2 Machine # 11 Intake & Output 10/18/19 10/19/19 10/20/19 06:59 06:59 06:59 Intake Total 340 375 25 Output Total 1000 0 700 Balance -660 375 -675 Weight 57 kg 75.5 kg General appearance: PRESENT: no acute distress Eye exam: PRESENT: PERRLA Respiratory exam: PRESENT: clear to auscultation debbie Cardiovascular exam: PRESENT: +S1, +S2 GI/Abdominal exam: PRESENT: soft Neurological exam: PRESENT: alert Results Laboratory Results: 10/19/19 04:47 10/19/19 04:47 10/18/19 10/19/19 10/19/19 23:32 04:47 04:47 WBC 9.0 7.3 RBC 3.29 L 3.42 L Hgb 10.3 L D 10.6 L Hct 31.2 L 32.1 L MCV 95 94 MCH 31.4 31.1 MCHC 33.1 33.1 RDW 21.6 H 21.8 H Plt Count 218 203 Sodium 136.8 L Potassium 3.8 Chloride 101 Carbon Dioxide 31 H Anion Gap 5 BUN 19 Creatinine 4.69 H Est GFR ( Amer) 11 L Glucose 110 Calcium 8.9 10/14/19 10/14/19 14:24 14:24 Creatine Kinase 26 L Troponin I 0.014 Impressions: Hip/Pelvis X-Ray 10/14/19 12:09 IMPRESSION: Acute comminuted intertrochanteric right proximal femoral fracture with varus angulation Head CT 10/14/19 12:32 IMPRESSION: No significant interval change. Mild chronic small vessel ischemic change and mild cerebral and cerebellar atrophy, stable. No acute intracranial hemorrhage, mass, or evidence of acute territorial infarct. EVIDENCE OF ACUTE STROKE: NO. Cervical Spine CT 10/14/19 12:33 IMPRESSION: CHRONIC DEGENERATIVE CHANGES. NO ACUTE FINDINGS. Abdomen/Pelvis CT 10/14/19 12:37 IMPRESSION: 1. Acute impacted intertrochanteric fracture right proximal femur. 2. Left lower lobe consolidation and small left pleural effusion. Finding may represent infectious/ inflammatory process. 3. Severe cardiomegaly with moderate pericardial effusion. 4. Colonic diverticulosis without evidence of diverticulitis. Hip X-Ray 10/16/19 00:00 IMPRESSION: IMAGE(S) OBTAINED DURING PROCEDURE. Chest X-Ray 10/18/19 00:00 IMPRESSION: NO ACUTE RADIOGRAPHIC FINDING IN THE CHEST. Assessment & Plan - Diagnosis (1) Displaced intertrochanteric fracture of right femur, initial encounter for closed fracture Is this a current diagnosis for this admission?: Yes (2) End stage renal disease Is this a current diagnosis for this admission?: Yes (3) Diabetes mellitus type 2 in obese Is this a current diagnosis for this admission?: Yes (4) Anemia of chronic disease Is this a current diagnosis for this admission?: Yes Plan: She was transfused with red blood cells, post transfusion hemoglobin is 10 (5) Adult failure to thrive Is this a current diagnosis for this admission?: Yes Plan: The etiology of adult failure to thrive is multifactorial patient overall prognosis is very poor, family is aware of this - Time Time Spent with patient: 25-34 minutes Level of Care: [facility], [place]
[2019-10-19] MEDS: MORPHINE SULFATE 10 MG/ML INJ IV PRN (20:52)
[2019-10-20] MEDS: MORPHINE SULFATE 10 MG/ML INJ IV PRN ×2 (00:27→15:18)
[2019-10-20] MEDS: LEVOTHYROXINE SODIUM 0.15 MG TABLET NG SCH (06:37)
[2019-10-20] MEDS: PANTOPRAZOLE SODIUM 40 MG PACKET.DR NG SCH (06:37)
[2019-10-20] MEDS: HEPARIN SOD (PORCINE) 5,000 UNIT/ML 1 ML VIAL SUBCUT SCH ×3 (06:37→21:19)
[2019-10-20] MEDS: INSULIN LISPRO 100 UNIT/ML 3 ML VIAL SUBCUT SCH ×4 (08:14→21:20)
[2019-10-20] MEDS: CEFTRIAXONE SODIUM 500 MG in NORMAL SALINE 25 ML IV SCH (10:10)
[2019-10-20] MEDS: DEXTROSE 5%-1/2 NORMAL SALINE 1,000 ML IV PRN ×2 (10:11→15:22)
--- NOTE | 2019-10-20 15:45 | PDOC PROGRESS REPORT ---
Subjective Progress Note for:: 10/20/19 Subjective:: Patient intake continues to be very minimal, she may need alternative means of nutrition , PEG tube, we need to discuss with nurse of [facility] and the daughter if this is the route they want to pursue, the daughter stated to me that oral intake has been minimal even before this admission. I do not see any evidence of infection, we will discontinue intravenous Rocephin, this was started empirically couple of days ago because of concern that she may have ongoing infection which was not apparent at the time. Prognosis remains poor, adult failure to thrive, etiology is multifactorial including end-stage renal disease on hemodialysis for many years now Reason For Visit: CLOSED INTERTROCHANTERIC FRACTURE R FEMUR,CHRONIC Physical Exam Vital Signs: Temp Pulse Resp BP Pulse Ox 97.4 F 62 15 117/35 L 90 L 10/20/19 15:26 10/20/19 15:26 10/20/19 15:26 10/20/19 15:26 10/20/19 15:26 Pulse Oximeter Continuous Start: 10/16/19 1 4:26 Freq: RTQ4 Status: Active Protocol: Document 10/20/19 04:19 CMI (Rec: 10/20/19 04:43 CMI [email or web address]) Pulse Oximetry Assessment Oxygen Saturation (92-100) 100 Oxygen Flow Rate (L/min) 2 Oxygen Delivery Method Nasal Cannula Fraction of Inspired Oxygen (FIO2) 28 Equipment Usage Equipment Standby Continuous SpO2 Machine # 11 Intake & Output 10/19/19 10/20/19 10/21/19 06:59 06:59 06:59 Intake Total 897 493 3824 Output Total 0 700 Balance 375 -565 1025 Weight 75.5 kg 75.6 kg General appearance: PRESENT: no acute distress Eye exam: PRESENT: PERRLA Respiratory exam: PRESENT: clear to auscultation debbie Cardiovascular exam: PRESENT: +S1, +S2 Results Laboratory Results: 10/19/19 04:47 10/19/19 04:47 10/14/19 10/14/19 14:24 14:24 Creatine Kinase 26 L Troponin I 0.014 Impressions: Hip/Pelvis X-Ray 10/14/19 12:09 IMPRESSION: Acute comminuted intertrochanteric right proximal femoral fracture with varus angulation Head CT 10/14/19 12:32 IMPRESSION: No significant interval change. Mild chronic small vessel ischemic change and mild cerebral and cerebellar atrophy, stable. No acute intracranial hemorrhage, mass, or evidence of acute territorial infarct. EVIDENCE OF ACUTE STROKE: NO. Cervical Spine CT 10/14/19 12:33 IMPRESSION: CHRONIC DEGENERATIVE CHANGES. NO ACUTE FINDINGS. Abdomen/Pelvis CT 10/14/19 12:37 IMPRESSION: 1. Acute impacted intertrochanteric fracture right proximal femur. 2. Left lower lobe consolidation and small left pleural effusion. Finding may represent infectious/ inflammatory process. 3. Severe cardiomegaly with moderate pericardial effusion. 4. Colonic diverticulosis without evidence of diverticulitis. Hip X-Ray 10/16/19 00:00 IMPRESSION: IMAGE(S) OBTAINED DURING PROCEDURE. Chest X-Ray 10/18/19 00:00 IMPRESSION: NO ACUTE RADIOGRAPHIC FINDING IN THE CHEST. Assessment & Plan - Diagnosis (1) Displaced intertrochanteric fracture of right femur, initial encounter for closed fracture Is this a current diagnosis for this admission?: Yes (2) End stage renal disease Is this a current diagnosis for this admission?: Yes (3) Diabetes mellitus type 2 in obese Is this a current diagnosis for this admission?: Yes (4) Anemia of chronic disease Is this a current diagnosis for this admission?: Yes (5) Adult failure to thrive Is this a current diagnosis for this admission?: Yes (6) Hypoglycemia Is this a current diagnosis for this admission?: Yes Plan: Continue low-dose 5% dextrose to maintain reasonable euglycemic state - Time Time Spent with patient: 25-34 minutes Level of Care: [facility]
[2019-10-20] MEDS ORDERED: ONDANSETRON HCL INJ/PF 4 MG/2 ML SDV ONE (21:25)
[2019-10-21] MEDS: ONDANSETRON HCL INJ/PF 4 MG/2 ML SDV IV PRN ×3 (01:45→21:53)
[2019-10-21] MEDS: PANTOPRAZOLE SODIUM 40 MG PACKET.DR NG SCH (06:23)
[2019-10-21] MEDS: LEVOTHYROXINE SODIUM 0.15 MG TABLET NG SCH (06:23)
[2019-10-21] MEDS: HEPARIN SOD (PORCINE) 5,000 UNIT/ML 1 ML VIAL SUBCUT SCH ×3 (06:23→21:53)
[2019-10-21] MEDS: INSULIN LISPRO 100 UNIT/ML 3 ML VIAL SUBCUT SCH ×4 (08:00→21:47)
[2019-10-21] MEDS: DEXTROSE 40% GEL 15 GM TUBE PO PRN ×2 (08:20→16:30)
--- NOTE | 2019-10-21 12:37 | RADIOLOGY REPORT (SQ) ---
EXAM DESCRIPTION: KUB/ABDOMEN (SINGLE VIEW) IMAGES COMPLETED DATE/TIME: 10/21/2019 12:24 pm REASON FOR STUDY: stomach pain and N/V COMPARISON: None. NUMBER OF VIEWS: One view. TECHNIQUE: Supine radiographic image of the abdomen acquired. LIMITATIONS: None. FINDINGS: BOWEL GAS PATTERN: Normal bowel gas pattern. No dilated loops. CALCIFICATIONS: Extensive vascular calcification. SOFT TISSUES: No gross mass or suggestion of organomegaly. HARDWARE: None in the abdomen. BONES: Marked osteopenia. Internal fixation right hip fracture. OTHER: Left pleural effusion. IMPRESSION: NO RADIOGRAPHIC EVIDENCE FOR ACUTE ABDOMINAL DISEASE. Left pleural effusion. TECHNICAL DOCUMENTATION: JOB ID: [id number] 2010 [employer]- All Rights Reserved Reading location - IP/workstation name: [email or web address]
--- NOTE | 2019-10-21 16:37 | PDOC PROGRESS REPORT ---
Subjective Progress Note for:: 10/21/19 Subjective:: Patient seen by the bedside, she complain of pain, she has minimal intake, persistent hypoglycemia, I spoke to the daughter the next of kin, she is agreeable to PEG tube placement. I spoke to the surgeon Dr. Rai, the only limitation is because of the fact that the hospital is presently not having any elective procedure done because of COVID pandemic, This may delay the procedure Reason For Visit: CLOSED INTERTROCHANTERIC FRACTURE R FEMUR,CHRONIC Physical Exam Vital Signs: Temp Pulse Resp BP Pulse Ox 97.2 F 62 12 117/46 L 95 10/21/19 10:41 10/21/19 10:41 10/21/19 10:41 10/21/19 10:41 10/21/19 10:41 Pulse Oximeter Continuous Start: 10/16/19 14:26 Freq: RTQ4 Status: Active Protocol: Document 10/21/19 04:25 PMU (Rec: 10/21/19 04:25 PMU [email or web address]) Pulse Oximetry Assessment Oxygen Saturation (92-100) 100 Oxygen Flow Rate (L/min) 2 Oxygen Delivery Method Nasal Cannula Fraction of Inspired Oxygen (FIO2) 28 Equipment Usage Equipment Standby Continuous Pulse Oximeter 24 Hour Charge Charge Now Continuous SpO2 Machine # 11 Intake & Output 10/20/19 10/21/19 10/22/19 06:59 06:59 06:59 Intake Total 135 2101 100 Output Total 700 Balance -565 2101 100 Weight 75.6 kg 77.2 kg General appearance: PRESENT: no acute distress Respiratory exam: PRESENT: clear to auscultation debbie Cardiovascular exam: PRESENT: +S1, +S2 Results Laboratory Results: 10/19/19 04:47 10/19/19 04:47 10/14/19 10/14/19 14:24 14:24 Creatine Kinase 26 L Troponin I 0.014 Impressions: Hip/Pelvis X-Ray 10/14/19 12:09 IMPRESSION: Acute comminuted intertrochanteric right proximal femoral fracture with varus angulation Head CT 10/14/19 12:32 IMPRESSION: No significant interval change. Mild chronic small vessel ischemic change and mild cerebral and cerebellar atrophy, stable. No acute intracranial hemorrhage, mass, or evidence of acute territorial infarct. EVIDENCE OF ACUTE STROKE: NO. Cervical Spine CT 10/14/19 12:33 IMPRESSION: CHRONIC DEGENERATIVE CHANGES. NO ACUTE FINDINGS. Abdomen/Pelvis CT 10/14/19 12:37 IMPRESSION: 1. Acute impacted intertrochanteric fracture right proximal femur. 2. Left lower lobe consolidation and small left pleural effusion. Finding may represent infectious/ inflammatory process. 3. Severe cardiomegaly with moderate pericardial effusion. 4. Colonic diverticulosis without evidence of diverticulitis. Hip X-Ray 10/16/19 00:00 IMPRESSION: IMAGE(S) OBTAINED DURING PROCEDURE. Chest X-Ray 10/18/19 00:00 IMPRESSION: NO ACUTE RADIOGRAPHIC FINDING IN THE CHEST. KUB X-Ray 10/21/19 00:00 IMPRESSION: NO RADIOGRAPHIC EVIDENCE FOR ACUTE ABDOMINAL DISEASE. Left pleural effusion. Assessment & Plan - Diagnosis (1) Displaced intertrochanteric fracture of right femur, initial encounter for closed fracture Is this a current diagnosis for this admission?: Yes (2) End stage renal disease Is this a current diagnosis for this admission?: Yes (3) Diabetes mellitus type 2 in obese Is this a current diagnosis for this admission?: Yes (4) Anemia of chronic disease Is this a current diagnosis for this admission?: Yes (5) Adult failure to thrive Is this a current diagnosis for this admission?: Yes Plan: She has persistent hypoglycemia due to diminished intake, patient to have PEG tube placement (6) Hypoglycemia Is this a current diagnosis for this admission?: Yes - Time Time Spent with patient: 25-34 minutes Level of Care: [facility]
--- NOTE | 2019-10-21 16:55 | PDOC CONSULTATION ---
Consultation Consult Date: 10/21/19 Attending physician:: JOSE MANUEL MIX Provider Consulted: BRYANT CURTIS Consult reason:: peg tube History of Present Illness Admission Date/PCP: 10/14/19 16:53 JOSE MANUEL MIX MD History of Present Illness: LOVELY ESPAÑA is a 78 year old female patient of Dr. Mix who presented to the ED [facility] following a mechanical fall at home. Patient reported that she fell in the process of getting into her bath at home. She denied any preceding chest pain, palpitation or irregular heart beat. She was unable to get off the floor due to associated right hip pain. She was on the floor for about three hours until her daughter return from work and was able to activate EMS. She denied loss of consciousness or seizure activities. She denied any nausea but reported episode of vomiting after attempt at eating earlier today. No ab dominal pain. Patient reported ongoing mobility at home that might have contributed to her fall due to inability to use her walker and wheelchair beyond her bathroom door. Her initial ED evaluation was significant for right intertrochantic femoral fracture with osteoporosis on her X ray. She was advised hospitalization for further evaluation and surgical intervention. pt underwent rt hip surgery to repair fracture, has has been noted to be loosing wt and rejecting food. dobhoff tube has been tried and pt continues to pull it out surgical consult Past Medical History Cardiac Medical History: Reports: Coronary Artery Disease - HIGH CHOL, Myocardial Infarction - 2017; POSSIBLE CARDIAC STENT PLACEMENT "TO KEEP THE VALVE OPEN", Hyperlipidema, Hypertension - HX. OF, CURRENTLY OFF HER HTN MEDS DUE TO LOW BP Pulmonary Medical History: Reports: Pneumonia - NOVEMBER 2017 Denies: Asthma, Bronchitis, Chronic Obstructive Pulmonary Disease (COPD), Tuberculosis Neurological Medical History: Denies: Seizures Endocrine Medical History: Reports: Diabetes Mellitus Type 2, Hypothyroidism Renal/ Medical History: Reports: End Stage Renal Disease - on hemodialysis on Tuesday, Tuesday, Tuesday schedule. Musculoskeltal Medical History: Reports: Arthritis Hematology: Denies: Anemia Past Surgical History Past Surgical History: Reports: Cardiac Catheterization, Cholecystectomy Denies: Pacemaker Social History Smoking Status: Unknown if Ever Smoked Frequency of Alcohol Use: None Hx Recreational Drug Use: No Hx Prescription Drug Abuse: No - Advance Directive Resuscitation Status: Do Not Resuscitate Family History Family History: CAD, Hypertension, Other - Kidney disease Parental Family History Reviewed: No Children Family History Reviewed: NA Sibling(s) Family History Reviewed.: NA Medication/Allergy Home Medications: Levothyroxine Sodium 150 mcg PO Q6AM 12/22/18 Allergies/Adverse Reactions: adhesive tape Allergy (Intermediate, Verified 10/14/19 12:23) Generalized rash Review of Systems ROS unobtainable: Due to mental status Physical Exam Vital Signs: Temp Pulse Resp BP Pulse Ox 97.2 F 62 12 117/46 L 95 10/21/19 10:41 10/21/19 10:41 10/21/19 10:41 10/21/19 10:41 10/21/19 10:41 Pulse Oximeter Continuous Start: 10/16/19 14:26 Freq: RTQ4 Status: Active Protocol: Document 10/21/19 04:25 PMU (Rec: 10/21/19 04:25 PMU [email or web address]) Pulse Oximetry Assessment Oxygen Saturation (92-100) 100 Oxygen Flow Rate (L/min) 2 Oxygen Delivery Method Nasal Cannula Fraction of Inspired Oxygen (FIO2) 28 Equipment Usage Equipment Standby Continuous Pulse Oximeter 24 Hour Charge Charge Now Continuous SpO2 Machine # 11 Intake & Output 10/20/19 10/21/19 10/22/19 06:59 06:59 06:59 Intake Total 135 2101 100 Output Total 700 Balance -565 2101 100 Weight 75.6 kg 77.2 kg General appearance: PRESENT: mild distress, thin Head exam: PRESENT: normocephalic Eye exam: PRESENT: EOMI Ear exam: PRESENT: normal external ear exam Teeth exam: PRESENT: poor dentation Neck exam: PRESENT: full ROM Respiratory exam: PRESENT: clear to auscultation debbie Cardiovascular exam: PRESENT: RRR Pulses: PRESENT: normal radial pulses, normal femoral pulses Vascular exam: PRESENT: normal capillary refill Breast: PRESENT: Normal GI/Abdominal exam: PRESENT: soft Rectal exam: PRESENT: deferred Extremities exam: PRESENT: full ROM, other - recent rt hip surgery Neurological exam: PRESENT: awake Skin exam: PRESENT: dry Results Laboratory Results: 10/19/19 04:47 10/19/19 04:47 10/14/19 10/14/19 14:24 14:24 Creatine Kinase 26 L Troponin I 0.014 Impressions: Hip/Pelvis X-Ray 10/14/19 12:09 IMPRESSION: Acute comminuted intertrochanteric right proximal femoral fracture with varus angulation Head CT 10/14/19 12:32 IMPRESSION: No significant interval change. Mild chronic small vessel ischemic change and mild cerebral and cerebellar atrophy, stable. No acute intracranial hemorrhage, mass, or evidence of acute territorial infarct. EVIDENCE OF ACUTE STROKE: NO. Cervical Spine CT 10/14/19 12:33 IMPRESSION: CHRONIC DEGENERATIVE CHANGES. NO ACUTE FINDINGS. Abdomen/Pelvis CT 10/14/19 12:37 IMPRESSION: 1. Acute impacted intertrochanteric fracture right proximal femur. 2. Left lower lobe consolidation and small left pleural effusion. Finding may represent infectious/ inflammatory process. 3. Severe cardiomegaly with moderate pericardial effusion. 4. Colonic diverticulosis without evidence of diverticulitis. Hip X-Ray 10/16/19 00:00 IMPRESSION: IMAGE(S) OBTAINED DURING PROCEDURE. Chest X-Ray 10/18/19 00:00 IMPRESSION: NO ACUTE RADIOGRAPHIC FINDING IN THE CHEST. KUB X-Ray 10/21/19 00:00 IMPRESSION: NO RADIOGRAPHIC EVIDENCE FOR ACUTE ABDOMINAL DISEASE. Left pleural effusion. Assessment & Plan - Diagnosis (1) Adult failure to thrive Is this a current diagnosis for this admission?: Yes - Plan Summary Plan Summary: impression, failure to thrive, dementia plan will arrange for peg tube.
--- NOTE | 2019-10-21 17:17 | Operative Report ---
Nonrecallable Operative Report DATE OF SURGERY: 10/21/19 PREOPERATIVE DIAGNOSIS: failure to thrive,dementia POSTOPERATIVE DIAGNOSIS: failure to thrive, demtntia OPERATION: left femoral line placement SURGEON: BRYANT CURTIS ANESTHESIA: Local TISSUE REMOVED OR ALTERED: none COMPLICATIONS: none ESTIMATED BLOOD LOSS: 0 INTRAOPERATIVE FINDINGS: see note PROCEDURE: Procedure was accomplished while the patient was lying in bed. Left femoral line placement. After appropriate timeout and site verification the left groin was prepped and draped in usual sterile fashion. Using 1% lidocaine plain the area over the left femoral vein was anesthetized. The left femoral vein was then cannulated with a 16-gauge needle. Through the needle a wire was placed. A small morgan in the skin was made with 11 blade. The tract was dilated with the dilator supplied with the kit. Then over the wire the triple-lumen catheter was threaded. Into the vein. It was fixed to the skin with 2-0 silk suture. Sterile dressing was applied. Patient tolerated the procedure well without complications
[2019-10-21] MEDS: DEXTROSE 50%-WATER 25 GM/50 ML DISP.SYRIN IV PRN (17:20)
[2019-10-21] MEDS: DEXTROSE 5%-1/2 NORMAL SALINE 1,000 ML IV PRN (18:03)
[2019-10-22] MEDS: ONDANSETRON HCL INJ/PF 4 MG/2 ML SDV IV PRN ×2 (02:09→07:29)
[2019-10-22 04:51] LABS: HEMATOCRIT 30.4 % (36.0-47.0); HEMOGLOBIN 9.9 g/dL (12.0-15.5); MEAN CORPUSCULAR HEMOGLOBIN 30.9 pg (27.0-33.4); MEAN CORPUSCULAR HGB CONC 32.7 g/dL (32.0-36.0); MEAN CORPUSCULAR VOLUME 94 fl (80-97); PLATELET COUNT 195 10^3/uL (150-450); RED BLOOD COUNT 3.22 10^6/uL (3.72-5.28); RED CELL DISTRIBUTION WIDTH 20.6 % (11.5-14.0); WHITE BLOOD COUNT 5.3 10^3/uL (4.0-10.5)
[2019-10-22] MEDS ORDERED: NORMAL SALINE 1000 ML 1,000 ML IV PRN (05:00)
[2019-10-22 05:38] LABS: ANION GAP 5 (5-19); BLOOD UREA NITROGEN 22 mg/dL (7-20); CALCIUM 8.8 mg/dL (8.4-10.2); CARBON DIOXIDE 28 mmol/L (22-30); CHLORIDE 99 mmol/L (98-107); GLUCOSE 149 mg/dL (75-110); POTASSIUM 3.7 mmol/L (3.6-5.0)
[2019-10-22] MEDS: PANTOPRAZOLE SODIUM 40 MG PACKET.DR NG SCH (05:47)
[2019-10-22] MEDS: LEVOTHYROXINE SODIUM 0.15 MG TABLET NG SCH (05:47)
[2019-10-22] MEDS: HEPARIN SOD (PORCINE) 5,000 UNIT/ML 1 ML VIAL SUBCUT SCH ×3 (05:47→22:00)
[2019-10-22] MEDS: INSULIN LISPRO 100 UNIT/ML 3 ML VIAL SUBCUT SCH ×4 (07:56→22:03)
--- NOTE | 2019-10-22 08:03 | PDOC PROGRESS REPORT ---
Subjective Progress Note for:: 10/22/19 Subjective:: Patient seen in dialysis. Currently laying in bed complaining of nausea and pain with motion. Continues to have decreased oral intake. Denies chest pain or shortness of breath. Reason For Visit: CLOSED INTERTROCHANTERIC FRACTURE R FEMUR,CHRONIC Physical Exam Vital Signs: Temp Pulse Resp BP Pulse Ox 97.2 F 62 16 133/47 H 100 10/22/19 03:26 10/22/19 03:26 10/22/19 03:26 10/22/19 03:26 10/22/19 04:00 Pulse Oximeter Continuous Start: 10/16/19 14:26 Freq: RTQ4 Status: Active Protocol: Document 10/22/19 04:00 [facility] (Rec: 10/22/19 04:25 [facility] [email or web address]) Pulse Oximetry Assessment Oxygen Saturation (92-100) 100 Oxygen Flow Rate (L/min) 2 Oxygen Delivery Method Nasal Cannula Fraction of Inspired Oxygen (FIO2) 28 Equipment Usage Equipment Standby Continuous SpO2 Machine # 11 Intake & Output 10/21/19 10/22/19 10/23/19 06:59 06:59 06:59 Intake Total 2101 130 Balance 2101 130 Weight 77.2 kg 74.7 kg Musculoskeletal exam: PRESENT: other - Right hip: Dressing clean/dry/intact no erythema or drainage. Moderate thigh swelling without change, intact plantarflexion/dorsiflexion. No sensory deficits. No calf tenderness. Results Laboratory Results: 10/22/19 04:23 10/22/19 04:23 10/22/19 10/22/19 04:23 04:23 WBC 5.3 RBC 3.22 L Hgb 9.9 L Hct 30.4 L MCV 94 MCH 30.9 MCHC 32.7 RDW 20.6 H Plt Count 195 Sodium 131.6 L Potassium 3.7 Chloride 99 Carbon Dioxide 28 Anion Gap 5 BUN 22 H Creatinine 4.93 H Est GFR ( Amer) 10 L Glucose 149 H Calcium 8.8 10/14/19 10/14/19 14:24 14:24 Creatine Kinase 26 L Troponin I 0.014 Impressions: Hip/Pelvis X-Ray 10/14/19 12:09 IMPRESSION: Acute comminuted intertrochanteric right proximal femoral fracture with varus angulation Head CT 10/14/19 12:32 IMPRESSION: No significant interval change. Mild chronic small vessel ischemic change and mild cerebral and cerebellar atrophy, stable. No acute intracranial hemorrhage, mass, or evidence of acute territorial infarct. EVIDENCE OF ACUTE STROKE: NO. Cervical Spine CT 10/14/19 12:33 IMPRESSION: CHRONIC DEGENERATIVE CHANGES. NO ACUTE FINDINGS. Abdomen/Pelvis CT 10/14/19 12:37 IMPRESSION: 1. Acute impacted intertrochanteric fracture right proximal femur. 2. Left lower lobe consolidation and small left pleural effusion. Finding may represent infectious/ inflammatory process. 3. Severe cardiomegaly with moderate pericardial effusion. 4. Colonic diverticulosis without evidence of diverticulitis. Hip X-Ray 10/16/19 00:00 IMPRESSION: IMAGE(S) OBTAINED DURING PROCEDURE. Chest X-Ray 10/18/19 00:00 IMPRESSION: NO ACUTE RADIOGRAPHIC FINDING IN THE CHEST. KUB X-Ray 10/21/19 00:00 IMPRESSION: NO RADIOGRAPHIC EVIDENCE FOR ACUTE ABDOMINAL DISEASE. Left pleural effusion. Assessment & Plan - Diagnosis (1) Closed intertrochanteric fracture of right femur Qualifiers: Encounter type: initial encounter Fracture alignment: displaced Qualified Code(s): S72.141A - Displaced intertrochanteric fracture of right femur, initial encounter for closed fracture Is this a current diagnosis for this admission?: Yes Plan: Status post right hip intramedullary nail 1. Physical therapy weightbearing as tolerated 2. Pain control 3. Poor oral intake. Patient is seen by the general surgery team who is considering proceeding with PEG tube 4. discharge planning patient will require senior care facility, once bed available - Time Time Spent with patient: Less than 15 minutes
[2019-10-22] MEDS ORDERED: EPOETIN ALFA-EPBX 5,000 UNITS (ESRD) in SYRINGE IV PRN ×3 (09:39)
--- NOTE | 2019-10-22 09:43 | PDOC PROGRESS REPORT ---
Subjective Progress Note for:: 10/22/19 Subjective:: I am seeing the patient during dialysis this morning. She is lying comfortably and does not verbalize much complaints. She is currently tolerating dialysis. Apparently the patient has not been eating even over the weekend and surgery consultations for PEG tube was initiated. Dr. Rai is seen the patient. She continues to be on D5 0.45 at 50 mL an hour. When she came into dialysis today she complained of nausea to our nurse. Reason For Visit: CLOSED INTERTROCHANTERIC FRACTURE R FEMUR,CHRONIC Physical Exam Vital Signs: Temp Pulse Resp BP Pulse Ox 97.2 F 68 16 133/47 H 100 10/22/19 03:26 10/22/19 07:00 10/22/19 03:26 10/22/19 03:26 10/22/19 04:00 Pulse Oximeter Continuous Start: 10/16/19 14:26 Freq: RTQ4 Status: Complete Protocol: Document 10/22/19 08:14 [facility] (Rec: 10/22/19 08:14 [facility] [email or web address]) Pulse Oximetry Assessment Equipment Usage Equipment Standby Continuous SpO2 Machine # 11 Intake & Output 10/21/19 10/22/19 10/23/19 06:59 06:59 06:59 Intake Total 2101 130 Balance 2101 130 Weight 77.2 kg 74.7 kg Vitals during dialysis: Blood pressure 140/62, heart rate of 68, blood flow rate of 450 mL/min and dialysate flow rate of 800 and more per minute. Exam: General appearance: PRESENT: no acute distress, cooperative, fairly-developed, fairly-nourished Head exam: PRESENT: atraumatic, normocephalic Eye exam: PRESENT: conjunctiva slightly pale, PERRLA. ABSENT: scleral icterus Neck exam: ABSENT: JVD Respiratory exam: PRESENT: Diminished breath sounds. ABSENT: crackles, rales, rhonchi, unlabored, wheezes Cardiovascular exam: PRESENT: Regular rate rhythm -+S1, +S2. ABSENT: diastolic murmur, systolic murmur GI/Abdominal exam: PRESENT: normal bowel sounds, soft. ABSENT: guarding, mass, tenderness Extremities exam: ABSENT: No edema Neurological exam: PRESENT: alert, awake, oriented to person, place and time. Answers questions appropriately but hard of hearing Skin exam: PRESENT: dry, warm, fair skin turgor Cardiovascular exam: PRESENT: +S1, +S2 GI/Abdominal exam: PRESENT: normal bowel sounds, soft. ABSENT: organomegaly, tenderness Results Laboratory Results: 10/22/19 04:23 10/22/19 04:23 10/22/19 10/22/19 04:23 04:23 WBC 5.3 RBC 3.22 L Hgb 9.9 L Hct 30.4 L MCV 94 MCH 30.9 MCHC 32.7 RDW 20.6 H Plt Count 195 Sodium 131.6 L Potassium 3.7 Chloride 99 Carbon Dioxide 28 Anion Gap 5 BUN 22 H Creatinine 4.93 H Est GFR ( Amer) 10 L Glucose 149 H Calcium 8.8 10/14/19 10/14/19 14:24 14:24 Creatine Kinase 26 L Troponin I 0.014 Impressions: Hip/Pelvis X-Ray 10/14/19 12:09 IMPRESSION: Acute comminuted intertrochanteric right proximal femoral fracture with varus angulation Head CT 10/14/19 12:32 IMPRESSION: No significant interval change. Mild chronic small vessel ischemic change and mild cerebral and cerebellar atrophy, stable. No acute intracranial hemorrhage, mass, or evidence of acute territorial infarct. EVIDENCE OF ACUTE STROKE: NO. Cervical Spine CT 10/14/19 12:33 IMPRESSION: CHRONIC DEGENERATIVE CHANGES. NO ACUTE FINDINGS. Abdomen/Pelvis CT 10/14/19 12:37 IMPRESSION: 1. Acute impacted intertrochanteric fracture right proximal femur. 2. Left lower lobe consolidation and small left pleural effusion. Finding may represent infectious/ inflammatory process. 3. Severe cardiomegaly with moderate pericardial effusion. 4. Colonic diverticulosis without evidence of diverticulitis. Hip X-Ray 10/16/19 00:00 IMPRESSION: IMAGE(S) OBTAINED DURING PROCEDURE. Chest X-Ray 10/18/19 00:00 IMPRESSION: NO ACUTE RADIOGRAPHIC FINDING IN THE CHEST. KUB X-Ray 10/21/19 00:00 IMPRESSION: NO RADIOGRAPHIC EVIDENCE FOR ACUTE ABDOMINAL DISEASE. Left pleural effusion. Assessment & Plan - Diagnosis (1) End stage renal disease on dialysis Is this a current diagnosis for this admission?: Yes Plan: We will do dialysis today for 3 hours, using the patient's AV fistula, with 3 potassium bath, blood flow rate of 450 mL per minute, dialysate flow rate of 800 mL per minute, ultrafiltration 1 to 1.5 L as tolerated, no heparin and Procrit with 5000 units during dialysis intravenously. Patient will be monitored throughout dialysis treatment. We will adjust ultrafiltration depending on blood pressure response. (2) Closed intertrochanteric fracture of right femur Qualifiers: Encounter type: initial encounter Fracture alignment: displaced Qualified Code(s): S72.141A - Displaced intertrochanteric fracture of right femur, initial encounter for closed fracture Is this a current diagnosis for this admission?: Yes Plan: Status post ORIF on . Patient will need physical therapy and likely [facility] facility placement for rehab. (3) Anemia in chronic kidney disease Is this a current diagnosis for this admission?: Yes Plan: We will give Retacrit during dialysis as needed. (4) Diabetes mellitus type 2 in nonobese Is this a current diagnosis for this admission?: Yes Plan: Currently the patient has poor oral intake with hypoglycemic episodes requiring D5 half-normal infusion with a minimal rate to prevent volume overload. (5) Hypertension Qualifiers: Hypertension type: essential hypertension Qualified Code(s): I10 - Essential (primary) hypertension Is this a current diagnosis for this admission?: Yes Plan: Controlled. (6) Adult failure to thrive Is this a current diagnosis for this admission?: Yes Plan: Dobbhoff tube was attempted but patient pulled it. Surgery is consulted for PEG tube placement. Currently at D5 0.45 but minimal rate. - Time Time with patient: 15-25 minutes
[2019-10-22] MEDS ORDERED: EPOETIN ALFA-EPBX 2,000 UNIT/ML VIAL (RENAL) IV ONE (10:00)
[2019-10-22] MEDS ORDERED: EPOETIN ALFA-EPBX 3,000 UNIT/ML VIAL (RENAL) IV ONE (10:00)
[2019-10-22] MEDS: DEXTROSE 5%-1/2 NORMAL SALINE 1,000 ML IV PRN (10:08)
[2019-10-22] MEDS: MORPHINE SULFATE 10 MG/ML INJ IV PRN (10:09)
--- NOTE | 2019-10-22 19:26 | PDOC PROGRESS REPORT ---
Subjective Progress Note for:: 10/22/19 Subjective:: Patient seen by the bedside she was dialyzed today, she is getting PEG tube placement tomorrow, the plan is to be transfer to a longterm home after PEG tube placement, discharge planning is working on that. She has a temporary femoral line for the purpose of IV access Reason For Visit: CLOSED INTERTROCHANTERIC FRACTURE R FEMUR,CHRONIC Physical Exam Vital Signs: Temp Pulse Resp BP Pulse Ox 98.0 F 73 13 136/38 H 100 10/22/19 16:45 10/22/19 16:45 10/22/19 16:45 10/22/19 16:45 10/22/19 16:45 Pulse Oximeter Continuous Start: 10/16/19 14:26 Freq: RTQ4 Status: Complete Protocol: Document 10/22/19 08:14 [facility] (Rec: 10/22/19 08:14 [facility] [email or web address]) Pulse Oximetry Assessment Equipment Usage Equipment Standby Continuous SpO2 Machine # 11 Intake & Output 10/21/19 10/22/19 10/23/19 06:59 06:59 06:59 Intake Total 2101 130 1009 Output Total 1500 Balance 2101 130 -491 Weight 77.2 kg 74.7 kg General appearance: PRESENT: no acute distress Eye exam: PRESENT: PERRLA Respiratory exam: PRESENT: clear to auscultation debbie Cardiovascular exam: PRESENT: +S1, +S2 Neurological exam: PRESENT: alert Results Laboratory Results: 10/22/19 04:23 10/22/19 04:23 10/22/19 10/22/19 04:23 04:23 WBC 5.3 RBC 3.22 L Hgb 9.9 L Hct 30.4 L MCV 94 MCH 30.9 MCHC 32.7 RDW 20.6 H Plt Count 195 Sodium 131.6 L Potassium 3.7 Chloride 99 Carbon Dioxide 28 Anion Gap 5 BUN 22 H Creatinine 4.93 H Est GFR ( Amer) 10 L Glucose 149 H Calcium 8.8 10/14/19 10/14/19 14:24 14:24 Creatine Kinase 26 L Troponin I 0.014 Impressions: Hip/Pelvis X-Ray 10/14/19 12:09 IMPRESSION: Acute comminuted intertrochanteric right proximal femoral fracture with varus angulation Head CT 10/14/19 12:32 IMPRESSION: No significant interval change. Mild chronic small vessel ischemic change and mild cerebral and cerebellar atrophy, stable. No acute intracranial hemorrhage, mass, or evidence of acute territorial infarct. EVIDENCE OF ACUTE STROKE: NO. Cervical Spine CT 10/14/19 12:33 IMPRESSION: CHRONIC DEGENERATIVE CHANGES. NO ACUTE FINDINGS. Abdomen/Pelvis CT 10/14/19 12:37 IMPRESSION: 1. Acute impacted intertrochanteric fracture right proximal femur. 2. Left lower lobe consolidation and small left pleural effusion. Finding may represent infectious/ inflammatory process. 3. Severe cardiomegaly with moderate pericardial effusion. 4. Colonic diverticulosis without evidence of diverticulitis. Hip X-Ray 10/16/19 00:00 IMPRESSION: IMAGE(S) OBTAINED DURING PROCEDURE. Chest X-Ray 10/18/19 00:00 IMPRESSION: NO ACUTE RADIOGRAPHIC FINDING IN THE CHEST. KUB X-Ray 10/21/19 00:00 IMPRESSION: NO RADIOGRAPHIC EVIDENCE FOR ACUTE ABDOMINAL DISEASE. Left pleural effusion. Assessment & Plan - Diagnosis (1) Displaced intertrochanteric fracture of right femur, initial encounter for closed fracture Is this a current diagnosis for this admission?: Yes (2) End stage renal disease Is this a current diagnosis for this admission?: Yes (3) Diabetes mellitus type 2 in obese Is this a current diagnosis for this admission?: Yes (4) Anemia of chronic disease Is this a current diagnosis for this admission?: Yes (5) Adult failure to thrive Is this a current diagnosis for this admission?: Yes (6) Hypoglycemia Is this a current diagnosis for this admission?: Yes - Time Time Spent with patient: 15-24 minutes Level of Care: [facility]
[2019-10-23] MEDS: DEXTROSE 5%-1/2 NORMAL SALINE 1,000 ML IV PRN ×2 (02:15→15:01)
[2019-10-23] MEDS: HEPARIN SOD (PORCINE) 5,000 UNIT/ML 1 ML VIAL SUBCUT SCH ×3 (05:27→22:42)
[2019-10-23] MEDS: PANTOPRAZOLE SODIUM 40 MG PACKET.DR NG SCH (05:27)
[2019-10-23] MEDS: LEVOTHYROXINE SODIUM 0.15 MG TABLET NG SCH (05:28)
[2019-10-23] MEDS: INSULIN LISPRO 100 UNIT/ML 3 ML VIAL SUBCUT SCH ×3 (08:52→16:47)
[2019-10-23] MEDS: MORPHINE SULFATE 10 MG/ML INJ IV PRN (09:12)
[2019-10-23] MEDS ORDERED: SUCCINYLCHOLINE CHLORIDE INJ 200 MG/10 ML VIAL ONE (09:58)
[2019-10-23] MEDS ORDERED: FENTANYL CITRATE INJ/PF 100 MCG/2 ML AMPUL ONE (11:01)
[2019-10-23] MEDS ORDERED: PROPOFOL INJ 200 MG/20 ML VIAL IV ONE (11:02)
[2019-10-23] MEDS ORDERED: MIDAZOLAM 2 MG/2 ML INJ ONE (11:02)
[2019-10-23] MEDS ORDERED: CEFAZOLIN INJ 1 GM VIAL ONE (12:39)
[2019-10-23] MEDS ORDERED: EPHEDRINE SULFATE INJ 50 MG/1 ML AMPULE ONE (13:10)
--- NOTE | 2019-10-23 13:20 | Operative Report ---
Nonrecallable Operative Report DATE OF SURGERY: 10/23/19 PREOPERATIVE DIAGNOSIS: failure to thrive POSTOPERATIVE DIAGNOSIS: failure to thrive OPERATION: peg tube placement converted to open gastrostomy tube [id number] SURGEON: BRYANT CURTIS 1ST TITLE ASSISTANT: YAHAIRA RYAN ANESTHESIA: GA TISSUE REMOVED OR ALTERED: none COMPLICATIONS: poss cervical esophageal perforation ESTIMATED BLOOD LOSS: 10cc INTRAOPERATIVE FINDINGS: unable to pass gastroscope through proximal esophagus. PROCEDURE: Procedure note; Patient was taken to the negative pressure room and preop induced under general anesthesia and intubated via the COVID-19 protocol. After appropriate timeout site verification the procedure commenced. The abdomen was prepped and draped in usual sterile fashion. Using the Olympus gastroscope we attempted to pass it through the mouth into the proximal esophagus however multiple attempts were required and I was unable to pass the scope. I then gently used a small bougie 38 [place] to see if it would easily pass and it was somewhat difficult. Therefore I remove the bougie. I then repassed the gastroscope into the proximal esophagus and really could not identify the proximal esophagus I identified the endotracheal tube the epiglottis but the scope would not pass the epigastric glottis into the proximal esophagus and therefore at this point fearing a an esophageal perforation I abandon this portion of the procedure. We then moved the patient to the regular operating room for a open gastrostomy tube. The patient was then placed on the operative table intubated the abdomen was prepped and draped in usual sterile fashion. A midline incision was used just below the xiphoid approximately 8 cm long dissection was then carried through subcutaneous tissue with Bovie cautery the midline fascia was entered. The stomach was quickly identified and used a Garnett clamp to retract it up into the wound. A prescription was then placed at the greater curvature the stomach mid body. We used 0 silk suture for the pursestring suture. We then made a small gastrotomy with the Bovie and then placed the gastrostomy tube into to the stomach. We tied down the pursestring suture. I placed a second pursestring suture at the periphery of the flange of the gastrostomy tube and then tucked that in as a second Lemberted suture line. We then made a small incision on the left anterior abdominal wall with a 15 blade using a tonsil clamp grasped the end of the G-tube and pulled it through. We then tacked the stomach up to the anterior abdominal wall from underneath the fascia with interrupted 2-0 silk sutures. The gastrostomy tube irrigated and s uctioned well. The midline fascia was then closed with #2 Vicryl sutures. The skin was then closed with interrupted 3-0 Vicryl in the subcutaneous tissue and then 4-0 Biosyn and the skin Steri-Strips completed the procedure. Estimated blood loss for the procedure was less than 10 cc sponge and needle counts were correct x2. IVONE Saavedra was present for the entire procedure for help with wound retraction wound closure. Patient was then transferred to recovery room in stable condition.
--- NOTE | 2019-10-23 14:46 | RADIOLOGY REPORT (SQ) ---
EXAM DESCRIPTION: CHEST SINGLE VIEW IMAGES COMPLETED DATE/TIME: 10/23/2019 2:31 pm REASON FOR STUDY: post g-tube plaement COMPARISON: 10/18/2019 EXAM PARAMETERS: NUMBER OF VIEWS: One view. TECHNIQUE: Single frontal radiographic view of the chest acquired. RADIATION DOSE: NA LIMITATIONS: None. FINDINGS: LUNGS AND PLEURA: Persistent left pleural effusion. Probable underlying airspace disease either atelectasis or pneumonia. Persistent left-sided pleural thickening. MEDIASTINUM AND HILAR STRUCTURES: No masses. Contour normal. HEART AND VASCULAR STRUCTURES: Grossly stable in appearance allowing for patient rotation. No failur e. BONES: No acute findings. HARDWARE: None in the chest. OTHER: No other significant finding. IMPRESSION: Persistent left pleural effusion with probable underlying left lower lobe atelectasis or pneumonia. No other significant interval change. TECHNICAL DOCUMENTATION: JOB ID: [id number] 2010 [employer]- All Rights Reserved Reading location - IP/workstation name: [email or web address]
[2019-10-23] MEDS: ONDANSETRON HCL INJ/PF 4 MG/2 ML SDV IV PRN (15:01)
--- NOTE | 2019-10-23 16:39 | RADIOLOGY REPORT (SQ) ---
EXAM DESCRIPTION: CT HEAD WITHOUT IMAGES COMPLETED DATE/TIME: 10/23/2019 4:29 pm REASON FOR STUDY: ams COMPARISON: 10/14/2019 TECHNIQUE: Axial images acquired through the brain without intravenous contrast. Images reviewed wi th bone, brain and subdural windows. Additional sagittal and coronal reconstructions were generated. Images stored on PACS. All CT scanners at this facility use dose modulation, iterative reconstruction, and/or weight based d osing when appropriate to reduce radiation dose to as low as reasonably achievable (ALARA). [facility]: Dose Right [facility]: CareDose [facility]: Dose Right [facility]: Teradose 4D [facility]: Smart [employer] RADIATION DOSE: CT Rad equipment meets quality standard of care and radiation dose reduction techniq ues were employed. CTDIvol: 55.2 mGy. DLP: 1139 mGy-cm.mGy. LIMITATIONS: None. FINDINGS: VENTRICLES: Prominent. CEREBRUM: No masses. No hemorrhage. No midline shift. Areas of low density in the white matter mos t likely due to chronic micro-vascular ischemic change. No evidence for acute infarction. CEREBELLUM: No masses. No hemorrhage. No alteration of density. No evidence for acute infarction. EXTRAAXIAL SPACES: Age-related involutional change. No fluid collections. No masses. ORBITS AND GLOBE: No intra- or extraconal masses. Normal contour of globe without masses. CALVARIUM: No fracture. PARANASAL SINUSES: No fluid or mucosal thickening. SOFT TISSUES: No mass or hematoma. OTHER: No other significant finding. IMPRESSION: CHRONIC CHANGES OF ATROPHY AND MICROVASCULAR ISCHEMIA. NO ACUTE PROCESS. EVIDENCE OF ACUTE STROKE: NO. TECHNICAL DOCUMENTATION: JOB ID: [id number] Quality ID # [id number]: Final reports with documentation of one or more dose reduction techniques (e.g., Au tomated exposure control, adjustment of the mA and/or kV according to patient size, use of iterative reconstruction technique) 2010 [employer]- All Rights Reserved Reading location - IP/workstation name: [email or web address]
--- NOTE | 2019-10-23 20:19 | PDOC PROGRESS REPORT ---
Subjective Progress Note for:: 10/23/19 Subjective:: Patient underwent open gastrostomy tube placement today, the initial plan was a PEG tube but this was converted to open gastrostomy tube placement, under general anesthesia. Should get dialysis tomorrow. I saw her today by the bedside she is somewhat sleepy Reason For Visit: CLOSED INTERTROCHANTERIC FRACTURE R FEMUR,CHRONIC Physical Exam Vital Signs: Temp Pulse Resp BP Pulse Ox 97.3 F 70 20 156/51 H 97 10/23/19 19:42 10/23/19 19:51 10/23/19 19:42 10/23/19 19:42 10/23/19 19:51 Pulse Oximeter Continuous Start: 10/16/19 14:26 Freq: RTQ4 Status: Complete Protocol: Document 10/22/19 08:14 [facility] (Rec: 10/22/19 08:14 [facility] [email or web address]) Pulse Oximetry Assessment Equipment Usage Equipment Standby Continuous SpO2 Machine # 11 Intake & Output 10/22/19 10/23/19 10/24/19 06:59 06:59 06:59 Intake Total 130 1915 1488 Output Total 1500 5 Balance 187 730 1104 Weight 74.7 kg 76.7 kg 76.7 kg General appearance: PRESENT: no acute distress Eye exam: PRESENT: PERRLA Respiratory exam: PRESENT: clear to auscultation debbie Cardiovascular exam: PRESENT: +S1, +S2 GI/Abdominal exam: PRESENT: soft Neurological exam: PRESENT: altered Results Laboratory Results: 10/22/19 04:23 10/22/19 04:23 10/18/19 15:36 Blood Blood Culture - Final NO GROWTH IN 5 DAYS 10/18/19 13:25 Blood Blood Culture - Final NO GROWTH IN 5 DAYS 10/14/19 10/14/19 14:24 14:24 Creatine Kinase 26 L Troponin I 0.014 Impressions: Hip/Pelvis X-Ray 10/14/19 12:09 IMPRESSION: Acute comminuted intertrochanteric right proximal femoral fracture with varus angulation Cervical Spine CT 10/14/19 12:33 IMPRESSION: CHRONIC DEGENERATIVE CHANGES. NO ACUTE FINDINGS. Abdomen/Pelvis CT 10/14/19 12:37 IMPRESSION: 1. Acute impacted intertrochanteric fracture right proximal femur. 2. Left lower lobe consolidation and small left pleural effusion. Finding may represent infectious/ inflammatory process. 3. Severe cardiomegaly with moderate pericardial effusion. 4. Colonic diverticulosis without evidence of diverticulitis. Hip X-Ray 10/16/19 00:00 IMPRESSION: IMAGE(S) OBTAINED DURING PROCEDURE. KUB X-Ray 10/21/19 00:00 IMPRESSION: NO RADIOGRAPHIC EVIDENCE FOR ACUTE ABDOMINAL DISEASE. Left pleural effusion. Chest X-Ray 10/23/19 00:00 IMPRESSION: Persistent left pleural effusion with probable underlying left lower lobe atelectasis or pneumonia. No other significant interval change. Head CT 10/23/19 00:00 IMPRESSION: CHRONIC CHANGES OF ATROPHY AND MICROVASCULAR ISCHEMIA. NO ACUTE PROCESS. EVIDENCE OF ACUTE STROKE: NO. Assessment & Plan - Diagnosis (1) Displaced intertrochanteric fracture of right femur, initial encounter for closed fracture Is this a current diagnosis for this admission?: Yes (2) End stage renal disease Is this a current diagnosis for this admission?: Yes (3) Diabetes mellitus type 2 in obese Is this a current diagnosis for this admission?: Yes (4) Anemia of chronic disease Is this a current diagnosis for this admission?: Yes (5) Adult failure to thrive Is this a current diagnosis for this admission?: Yes (6) Hypoglycemia Is this a current diagnosis for this admission?: Yes - Time Time Spent with patient: 15-24 minutes Level of Care: [facility]
[2019-10-24] MEDS: ONDANSETRON HCL INJ/PF 4 MG/2 ML SDV IV PRN ×3 (03:40→12:40)
[2019-10-24] MEDS ORDERED: EPOETIN ALFA-EPBX 2,000 UNIT, EPOETIN ALFA-EPBX 3,000 UNIT in SYRINGE, DISPOSABLE, 1 EACH IV PRN (05:00)
[2019-10-24] MEDS ORDERED: NORMAL SALINE 1000 ML 1,000 ML IV PRN (05:00)
[2019-10-24] MEDS: LEVOTHYROXINE SODIUM 0.15 MG TABLET NG SCH (05:23)
[2019-10-24] MEDS: PANTOPRAZOLE SODIUM 40 MG PACKET.DR NG SCH (05:23)
[2019-10-24] MEDS: HEPARIN SOD (PORCINE) 5,000 UNIT/ML 1 ML VIAL SUBCUT SCH ×3 (05:23→21:32)
[2019-10-24] MEDS: DEXTROSE 50%-WATER 25 GM/50 ML DISP.SYRIN IV PRN ×8 (05:37→18:47)
[2019-10-24] MEDS: INSULIN LISPRO 100 UNIT/ML 3 ML VIAL SUBCUT SCH ×4 (06:04→17:56)
[2019-10-24 06:30] LABS: ABSOLUTE LYMPHOCYTES (AUTO) 0.7 10^3/uL (0.5-4.7); ABSOLUTE MONOCYTES (AUTO) 0.5 10^3/uL (0.1-1.4); ABSOLUTE NEUT (AUTO) 12.5 10^3/uL (1.7-8.2); BASOPHILS % (AUTO) 0.1 % (0-2); HEMATOCRIT 31.4 % (36.0-47.0); HEMOGLOBIN 10.2 g/dL (12.0-15.5); LYMPHOCYTES % (AUTO) 4.8 % (13-45); MEAN CORPUSCULAR HEMOGLOBIN 30.9 pg (27.0-33.4); MEAN CORPUSCULAR HGB CONC 32.6 g/dL (32.0-36.0); MEAN CORPUSCULAR VOLUME 95 fl (80-97); MONOCYTES % (AUTO) 3.7 % (3-13); PLATELET COUNT 219 10^3/uL (150-450); RED BLOOD COUNT 3.32 10^6/uL (3.72-5.28); RED CELL DISTRIBUTION WIDTH 20.2 % (11.5-14.0); SEGMENTED NEUTROPHILS % (AUTO) 91.4 % (42-78); TOTAL CELLS COUNTED % (AUTO) 100 %
[2019-10-24 06:31] LABS: WHITE BLOOD COUNT 13.7 10^3/uL (4.0-10.5)
[2019-10-24 06:39] LABS: ANION GAP 7 (5-19); BLOOD UREA NITROGEN 18 mg/dL (7-20); CALCIUM 8.2 mg/dL (8.4-10.2); CARBON DIOXIDE 27 mmol/L (22-30); CHLORIDE 97 mmol/L (98-107); GLUCOSE 115 mg/dL (75-110); POTASSIUM 3.7 mmol/L (3.6-5.0)
--- NOTE | 2019-10-24 07:31 | PDOC PROGRESS REPORT ---
Subjective Progress Note for:: 10/24/19 Subjective:: pod 1 s/p peg tube converted to open gastrostomy tube. Reason For Visit: CLOSED INTERTROCHANTERIC FRACTURE R FEMUR,CHRONIC Physical Exam Vital Signs: Temp Pulse Resp BP Pulse Ox 97.5 F 79 20 142/55 H 98 10/24/19 03:34 10/24/19 04:46 10/24/19 03:34 10/24/19 03:34 10/24/19 04:46 Pulse Oximeter Continuous Start: 10/16/19 1 4:26 Freq: RTQ4 Status: Complete Protocol: Document 10/22/19 08:14 [facility] (Rec: 10/22/19 08:14 [facility] [id number]) Pulse Oximetry Assessment Equipment Usage Equipment Standby Continuous SpO2 Machine # 11 Intake & Output 10/23/19 10/24/19 10/25/19 06:59 06:59 06:59 Intake Total 1915 1488 Output Total 1500 5 Balance 415 1483 Weight 76.7 kg 78.3 kg General appearance: PRESENT: no acute distress Head exam: PRESENT: normocephalic Eye exam: PRESENT: EOMI Ear exam: PRESENT: normal external ear exam Mouth exam: PRESENT: dry mucosa, moist Teeth exam: PRESENT: poor dentation Neck exam: PRESENT: full ROM Respiratory exam: PRESENT: clear to auscultation debbie Cardiovascular exam: PRESENT: RRR Pulses: PRESENT: normal radial pulses, normal femoral pulses Vascular exam: PRESENT: normal capillary refill Breast: PRESENT: Normal GI/Abdominal exam: PRESENT: soft, other - gtube site clean, abd soft incision clean Rectal exam: PRESENT: deferred Extremities exam: PRESENT: full ROM Musculoskeletal exam: PRESENT: full ROM Neurological exam: PRESENT: awake, oriented to person Psychiatric exam: PRESENT: appropriate affect Skin exam: PRESENT: dry Results Laboratory Results: 10/24/19 05:33 10/24/19 05:33 10/24/19 10/24/19 05:33 05:33 WBC 13.7 H D RBC 3.32 L Hgb 10.2 L Hct 31.4 L MCV 95 MCH 30.9 MCHC 32.6 RDW 20.2 H Plt Count 219 Seg Neutrophils % 91.4 H Sodium 130.6 L Potassium 3.7 Chloride 97 L Carbon Dioxide 27 Anion Gap 7 BUN 18 Creatinine 4.35 H Est GFR ( Amer) 12 L Glucose 115 H Calcium 8.2 L 10/18/19 15:36 Blood Blood Culture - Final NO GROWTH IN 5 DAYS 10/18/19 13:25 Blood Blood Culture - Final NO GROWTH IN 5 DAYS 10/14/19 10/14/19 14:24 14:24 Creatine Kinase 26 L Troponin I 0.014 Impressions: Hip/Pelvis X-Ray 10/14/19 12:09 IMPRESSION: Acute comminuted intertrochanteric right proximal femoral fracture with varus angulation Cervical Spine CT 10/14/19 12:33 IMPRESSION: CHRONIC DEGENERATIVE CHANGES. NO ACUTE FINDINGS. Abdomen/Pelvis CT 10/14/19 12:37 IMPRESSION: 1. Acute impacted intertrochanteric fracture right proximal femur. 2. Left lower lobe consolidation and small left pleural effusion. Finding may represent infectious/ inflammatory process. 3. Severe cardiomegaly with moderate pericardial effusion. 4. Colonic diverticulosis without evidence of diverticulitis. Hip X-Ray 10/16/19 00:00 IMPRESSION: IMAGE(S) OBTAINED DURING PROCEDURE. KUB X-Ray 10/21/19 00:00 IMPRESSION: NO RADIOGRAPHIC EVIDENCE FOR ACUTE ABDOMINAL DISEASE. Left pleural effusion. Chest X-Ray 10/23/19 00:00 IMPRESSION: Persistent left pleural effusion with probable underlying left lower lobe atelectasis or pneumonia. No other significant interval change. Head CT 10/23/19 00:00 IMPRESSION: CHRONIC CHANGES OF ATROPHY AND MICROVASCULAR ISCHEMIA. NO ACUTE PROCESS. EVIDENCE OF ACUTE STROKE: NO. Assessment & Plan - Diagnosis (1) Adult failure to thrive Is this a current diagnosis for this admission?: Yes - Plan Summary Plan Summary: s/p open gastrostomy tube yesterday awoke from anesthesia iwth left side facial droop ct last pm neg. this am still sl drowsy, labs wbc 13k creat 4.35 plan will start tube feeds today dialysis today
[2019-10-24] MEDS: MORPHINE SULFATE 10 MG/ML INJ IV PRN ×2 (08:19→21:36)
[2019-10-24] MEDS: DEXTROSE 5%-1/2 NORMAL SALINE 1,000 ML IV PRN (12:42)
--- NOTE | 2019-10-24 16:31 | PDOC PROGRESS REPORT ---
Subjective Progress Note for:: 10/24/19 Subjective:: Patient seen by the bedside , had dialysis today, tube feeds started, still had episodes of hypoglycemia Reason For Visit: CLOSED INTERTROCHANTERIC FRACTURE R FEMUR,CHRONIC Physical Exam Vital Signs: Temp Pulse Resp BP Pulse Ox 97.5 F 68 15 141/49 H 98 10/24/19 03:34 10/24/19 15:03 10/24/19 15:03 10/24/19 15:03 10/24/19 04:46 Pulse Oximeter Continuous Start: 10/16/19 14:26 Freq: RTQ4 Status: Complete Protocol: Document 10/22/19 08:14 [facility] (Rec: 10/22/19 08:14 [facility] [id number]) Pulse Oximetry Assessment Equipment Usage Equipment Standby Continuous SpO2 Machine # 11 Intake & Output 10/23/19 10/24/19 10/25/19 06:59 06:59 06:59 Intake Total 1915 1488 2000 Output Total 1500 5 1390 Balance 415 1483 610 Weight 76.7 kg 78.3 kg General appearance: PRESENT: no acute distress Eye exam: PRESENT: PERRLA Respiratory exam: PRESENT: clear to auscultation debbie Cardiovascular exam: PRESENT: +S1, +S2 GI/Abdominal exam: PRESENT: soft Results Laboratory Results: 10/24/19 05:33 10/24/19 05:33 10/24/19 10/24/19 05:33 05:33 WBC 13.7 H D RBC 3.32 L Hgb 10.2 L Hct 31.4 L MCV 95 MCH 30.9 MCHC 32.6 RDW 20.2 H Plt Count 219 Seg Neutrophils % 91.4 H Sodium 130.6 L Potassium 3.7 Chloride 97 L Carbon Dioxide 27 Anion Gap 7 BUN 18 Creatinine 4.35 H Est GFR ( Amer) 12 L Glucose 115 H Calcium 8.2 L 10/18/19 15:36 Blood Blood Culture - Final NO GROWTH IN 5 DAYS 10/18/19 13:25 Blood Blood Culture - Final NO GROWTH IN 5 DAYS 10/14/19 10/14/19 14:24 14:24 Creatine Kinase 26 L Troponin I 0.014 Impressions: Hip/Pelvis X-Ray 10/14/19 12:09 IMPRESSION: Acute comminuted intertrochanteric right proximal femoral fracture with varus angulation Cervical Spine CT 10/14/19 12:33 IMPRESSION: CHRONIC DEGENERATIVE CHANGES. NO ACUTE FINDINGS. Abdomen/Pelvis CT 10/14/19 12:37 IMPRESSION: 1. Acute impacted intertrochanteric fracture right proximal femur. 2. Left lower lobe consolidation and small left pleural effusion. Finding may represent infectious/ inflammatory process. 3. Severe cardiomegaly with moderate pericardial effusion. 4. Colonic diverticulosis without evidence of diverticulitis. Hip X-Ray 10/16/19 00:00 IMPRESSION: IMAGE(S) OBTAINED DURING PROCEDURE. KUB X-Ray 10/21/19 00:00 IMPRESSION: NO RADIOGRAPHIC EVIDENCE FOR ACUTE ABDOMINAL DISEASE. Left pleural effusion. Chest X-Ray 10/23/19 00:00 IMPRESSION: Persistent left pleural effusion with probable underlying left lower lobe atelectasis or pneumonia. No other significant interval change. Head CT 10/23/19 00:00 IMPRESSION: CHRONIC CHANGES OF ATROPHY AND MICROVASCULAR ISCHEMIA. NO ACUTE PROCESS. EVIDENCE OF ACUTE STROKE: NO. Assessment & Plan - Diagnosis (1) Displaced intertrochanteric fracture of right femur, initial encounter for closed fracture Is this a current diagnosis for this admission?: Yes (2) End stage renal disease Is this a current diagnosis for this admission?: Yes (3) Diabetes mellitus type 2 in obese Is this a current diagnosis for this admission?: Yes (4) Anemia of chronic disease Is this a current diagnosis for this admission?: Yes (5) Adult failure to thrive Is this a current diagnosis for this admission?: Yes (6) Hypoglycemia Is this a current diagnosis for this admission?: Yes - Time Time Spent with patient: 25-34 minutes Level of Care: [facility]
[2019-10-24] MEDS: DEXTROSE 10%-WATER 1,000 ML IV PRN (18:55)
[2019-10-25] MEDS: INSULIN LISPRO 100 UNIT/ML 3 ML VIAL SUBCUT SCH ×4 (00:35→18:30)
[2019-10-25] MEDS: PANTOPRAZOLE SODIUM 40 MG PACKET.DR NG SCH (05:08)
[2019-10-25] MEDS: HEPARIN SOD (PORCINE) 5,000 UNIT/ML 1 ML VIAL SUBCUT SCH ×3 (05:08→22:30)
[2019-10-25] MEDS: LEVOTHYROXINE SODIUM 0.15 MG TABLET NG SCH (05:08)
[2019-10-25] MEDS: MORPHINE SULFATE 10 MG/ML INJ IV PRN (05:08)
[2019-10-25] MEDS: ONDANSETRON HCL INJ/PF 4 MG/2 ML SDV IV PRN (05:40)
--- NOTE | 2019-10-25 09:20 | PDOC PROGRESS REPORT ---
Subjective Progress Note for:: 10/25/19 Subjective:: reportedly more altert per nursing generally tolerated g-tube feeds although occasional high residuals Reason For Visit: CLOSED INTERTROCHANTERIC FRACTURE R FEMUR,CHRONIC Physical Exam Vital Signs: Temp Pulse Resp BP Pulse Ox 97.5 F 85 16 137/52 H 91 L 10/25/19 07:41 10/25/19 07:41 10/25/19 07:41 10/25/19 07:41 10/25/19 07:41 Pulse Oximeter Continuous Start: 10/16/19 14:26 Freq: RTQ4 Status: Complete Protocol: Document 10/22/19 08:14 [facility] (Rec: 10/22/19 08:14 [facility] [id number]) Pulse Oximetry Assessment Equipment Usage Equipment Standby Continuous SpO2 Machine # 11 Intake & Output 10/24/19 10/25/19 10/26/19 06:59 06:59 06:59 Intake Total 1488 2690 Output Total 5 1690 Balance 1483 1000 Weight 78.3 kg 80.1 kg General appearance: PRESENT: no acute distress Head exam: PRESENT: normocephalic Eye exam: PRESENT: EOMI Ear exam: PRESENT: normal external ear exam Mouth exam: PRESENT: moist Teeth exam: PRESENT: edentulous Neck exam: PRESENT: full ROM Respiratory exam: PRESENT: clear to auscultation debbie Cardiovascular exam: PRESENT: RRR Pulses: PRESENT: normal radial pulses, normal femoral pulses Vascular exam: PRESENT: normal capillary refill Breast: PRESENT: Normal GI/Abdominal exam: PRESENT: soft - g-tube site clean. Rectal exam: PRESENT: deferred Extremities exam: PRESENT: full ROM Neurological exam: PRESENT: alert Skin exam: PRESENT: dry Results Laboratory Results: 10/24/19 05:33 10/24/19 05:33 10/14/19 10/14/19 14:24 14:24 Creatine Kinase 26 L Troponin I 0.014 Impressions: Hip/Pelvis X-Ray 10/14/19 12:09 IMPRESSION: Acute comminuted intertrochanteric right proximal femoral fracture with varus angulation Cervical Spine CT 10/14/19 12:33 IMPRESSION: CHRONIC DEGENERATIVE CHANGES. NO ACUTE FINDINGS. Abdomen/Pelvis CT 10/14/19 12:37 IMPRESSION: 1. Acute impacted intertrochanteric fracture right proximal femur. 2. Left lower lobe consolidation and small left pleural effusion. Finding may represent infectious/ inflammatory process. 3. Severe cardiomegaly with moderate pericardial effusion. 4. Colonic diverticulosis without evidence of diverticulitis. Hip X-Ray 10/16/19 00:00 IMPRESSION: IMAGE(S) OBTAINED DURING PROCEDURE. KUB X-Ray 10/21/19 00:00 IMPRESSION: NO RADIOGRAPHIC EVIDENCE FOR ACUTE ABDOMINAL DISEASE. Left pleural effusion. Chest X-Ray 10/23/19 00:00 IMPRESSION: Persistent left pleural effusion with probable underlying left lower lobe atelectasis or pneumonia. No other significant interval change. Head CT 10/23/19 00:00 IMPRESSION: CHRONIC CHANGES OF ATROPHY AND MICROVASCULAR ISCHEMIA. NO ACUTE PROCESS. EVIDENCE OF ACUTE STROKE: NO. Assessment & Plan - Diagnosis (1) Adult failure to thrive Is this a current diagnosis for this admission?: Yes - Plan Summary Plan Summary: generally jaun tube feeds occasional high residuals 1 episode of vomiting will add reglan
[2019-10-25] MEDS: METOCLOPRAMIDE HCL INJ/PF 10 MG/2 ML SDV IV SCH ×2 (11:58→18:29)
[2019-10-25] MEDS: DEXTROSE 10%-WATER 1,000 ML IV PRN (15:15)
--- NOTE | 2019-10-25 15:24 | PDOC PROGRESS REPORT ---
Subjective Progress Note for:: 10/24/19 Subjective:: Today dialysis initiation was delayed because the patient had an episode of hypoglycemia again this morning. G-tube feeding was started. Recent blood sugar after initiation of the tube feeding was 126. I am seeing the patient during dialysis treatment today. She is awake and answering questions although still very difficult of hearing. So far she is tolerating dialysis. Complains of a little nausea. She is currently being given tube feeding while on dialysis. Reason For Visit: CLOSED INTERTROCHANTERIC FRACTURE R FEMUR,CHRONIC Physical Exam Vital Signs: Temp Pulse Resp BP Pulse Ox 97.5 F 70 20 142/55 H 98 10/24/19 03:34 10/24/19 07:00 10/24/19 03:34 10/24/19 03:34 10/24/19 04:46 Pulse Oximeter Continuous Start: 10/16/19 14:26 Freq: RTQ4 Status: Complete Protocol: Document 10/22/19 08:14 [facility] (Rec: 10/22/19 08:14 [facility] [id number]) Pulse Oximetry Assessment Equipment Usage Equipment Standby Continuous SpO2 Machine # 11 Intake & Output 10/23/19 10/24/19 10/25/19 06:59 06:59 06:59 Intake Total 1915 1488 Output Total 1500 5 Balance 415 1483 Weight 76.7 kg 78.3 kg Vitals during dialysis: Blood pressure 101/52, heart rate of 76, blood flow rate of 450 mL/min and dialysate flow rate of 800 mL/min. Exam: General appearance: PRESENT: no acute distress, cooperative, fairly -developed, fairly-nourished Head exam: PRESENT: atraumatic, normocephalic Eye exam: PRESENT: conjunctiva slightly pale PERRLA. Legally blind ABSENT: scleral icterus Neck exam: ABSENT: JVD Respiratory exam: PRESENT: Diminished breath sounds. ABSENT: crackles, rales, rhonchi, unlabored, wheezes Cardiovascular exam: PRESENT: Regular rate rhythm -+S1, +S2. ABSENT: diastolic murmur, systolic murmur GI/Abdominal exam: PRESENT: normal bowel sounds, soft. G-tube in the left upper quadrant in use ABSENT: guarding, mass, tenderness Extremities exam: Bilateral trace edema Neurological exam: PRESENT: alert, awake, oriented to person, place and time. Skin exam: PRESENT: dry, warm, Cardiovascular exam: PRESENT: +S1, +S2 GI/Abdominal exam: PRESENT: normal bowel sounds, soft. ABSENT: organomegaly, tenderness Results Laboratory Results: 10/24/19 05:33 10/24/19 05:33 10/24/19 10/24/19 05:33 05:33 WBC 13.7 H D RBC 3.32 L Hgb 10.2 L Hct 31.4 L MCV 95 MCH 30.9 MCHC 32.6 RDW 20.2 H Plt Count 219 Seg Neutrophils % 91.4 H Sodium 130.6 L Potassium 3.7 Chloride 97 L Carbon Dioxide 27 Anion Gap 7 BUN 18 Creatinine 4.35 H Est GFR ( Amer) 12 L Glucose 115 H Calcium 8.2 L 10/18/19 15:36 Blood Blood Culture - Final NO GROWTH IN 5 DAYS 10/18/19 13:25 Blood Blood Culture - Final NO GROWTH IN 5 DAYS 10/14/19 10/14/19 14:24 14:24 Creatine Kinase 26 L Troponin I 0.014 Impressions: Hip/Pelvis X-Ray 10/14/19 12:09 IMPRESSION: Acute comminuted intertrochanteric right proximal femoral fracture with varus angulation Cervical Spine CT 10/14/19 12:33 IMPRESSION: CHRONIC DEGENERATIVE CHANGES. NO ACUTE FINDINGS. Abdomen/Pelvis CT 10/14/19 12:37 IMPRESSION: 1. Acute impacted intertrochanteric fracture right proximal femur. 2. Left lower lobe consolidation and small left pleural effusion. Finding may represent infectious/ inflammatory process. 3. Severe cardiomegaly with moderate pericardial effusion. 4. Colonic diverticulosis without evidence of diverticulitis. Hip X-Ray 10/16/19 00:00 IMPRESSION: IMAGE(S) OBTAINED DURING PROCEDURE. KUB X-Ray 10/21/19 00:00 IMPRESSION: NO RADIOGRAPHIC EVIDENCE FOR ACUTE ABDOMINAL DISEASE. Left pleural effusion. Chest X-Ray 10/23/19 00:00 IMPRESSION: Persistent left pleural effusion with probable underlying left lower lobe atelectasis or pneumonia. No other significant interval change. Head CT 10/23/19 00:00 IMPRESSION: CHRONIC CHANGES OF ATROPHY AND MICROVASCULAR ISCHEMIA. NO ACUTE PROCESS. EVIDENCE OF ACUTE STROKE: NO. Assessment & Plan - Diagnosis (1) End stage renal disease on dialysis Is this a current diagnosis for this admission?: Yes Plan: We will do dialysis today for 3 hours, using the patient's AV fistula, with 3 potassium bath, blood flow rate of 450 mL per minute, dialysate flow rate of 800 mL per minute, ultrafiltration 2 L as tolerated, [no heparin] and Procrit with 5000 units during dialysis intravenously. (2) Closed intertrochanteric fracture of right femur Qualifiers: Encounter type: initial encounter Fracture alignment: displaced Qualified Code(s): S72.141A - Displaced intertrochanteric fracture of right femur, initial encounter for closed fracture Is this a current diagnosis for this admission?: Yes Plan: Status post ORIF on . Patient will need physical therapy and likely senior living facility placement for rehab. (3) Anemia in chronic kidney disease Is this a current diagnosis for this admission?: Yes Plan: We will give Retacrit during dialysis as needed. (4) Diabetes mellitus type 2 in nonobese Is this a current diagnosis for this admission?: Yes Plan: Currently the patient has poor oral intake with hypoglycemic episodes. Currently on tube feeding through the newly placed G-tube. (5) Hypertension Qualifiers: Hypertension type: essential hypertension Qualified Code(s): I10 - Essential (primary) hypertension Is this a current diagnosis for this admission?: Yes Plan: Controlled. (6) Adult failure to thrive Is this a current diagnosis for this admission?: Yes Plan: G-tube feeding started. - Time Time with patient: 15-25 minutes
--- NOTE | 2019-10-25 19:11 | PDOC PROGRESS REPORT ---
Subjective Progress Note for:: 10/25/19 Subjective:: Patient seen by the bedside the PEG tube is functioning well, occasional residual, she has a bed in senior care home, [facility] Reason For Visit: CLOSED INTERTROCHANTERIC FRACTURE R FEMUR,CHRONIC Physical Exam Vital Signs: Temp Pulse Resp BP Pulse Ox 97.4 F 53 L 17 130/51 H 100 10/25/19 15:23 10/25/19 15:23 10/25/19 15:23 10/25/19 15:23 10/25/19 15:23 Pulse Oximeter Continuous Start: 10/16/19 14:26 Freq: RTQ4 Status: Complete Protocol: Document 10/22/19 08:14 [facility] (Rec: 10/22/19 08:14 [facility] [id number]) Pulse Oximetry Assessment Equipment Usage Equipment Standby Continuous SpO2 Machine # 11 Intake & Output 10/24/19 10/25/19 10/26/19 06:59 06:59 06:59 Intake Total 1488 2690 0 Output Total 5 1690 Balance 1483 1000 0 Weight 78.3 kg 80.1 kg General appearance: PRESENT: no acute distress Eye exam: PRESENT: PERRLA Respiratory exam: PRESENT: clear to auscultation debbie Cardiovascular exam: PRESENT: +S1, +S2 GI/Abdominal exam: PRESENT: soft Neurological exam: PRESENT: alert Results Laboratory Results: 10/24/19 05:33 10/24/19 05:33 10/14/19 10/14/19 14:24 14:24 Creatine Kinase 26 L Troponin I 0.014 Impressions: Hip/Pelvis X-Ray 10/14/19 12:09 IMPRESSION: Acute comminuted intertrochanteric right proximal femoral fracture with varus angulation Cervical Spine CT 10/14/19 12:33 IMPRESSION: CHRONIC DEGENERATIVE CHANGES. NO ACUTE FINDINGS. Abdomen/Pelvis CT 10/14/19 12:37 IMPRESSION: 1. Acute impacted intertrochanteric fracture right proximal femur. 2. Left lower lobe consolidation and small left pleural effusion. Finding may represent infectious/ inflammatory process. 3. Severe cardiomegaly with moderate pericardial effusion. 4. Colonic diverticulosis without evidence of diverticulitis. Hip X-Ray 10/16/19 00:00 IMPRESSION: IMAGE(S) OBTAINED DURING PROCEDURE. KUB X-Ray 10/21/19 00:00 IMPRESSION: NO RADIOGRAPHIC EVIDENCE FOR ACUTE ABDOMINAL DISEASE. Left pleural effusion. Chest X-Ray 10/23/19 00:00 IMPRESSION: Persistent left pleural effusion with probable underlying left lower lobe atelectasis or pneumonia. No other significant interval change. Head CT 10/23/19 00:00 IMPRESSION: CHRONIC CHANGES OF ATROPHY AND MICROVASCULAR ISCHEMIA. NO ACUTE PROCESS. EVIDENCE OF ACUTE STROKE: NO. Assessment & Plan - Diagnosis (1) Displaced intertrochanteric fracture of right femur, initial encounter for closed fracture Is this a current diagnosis for this admission?: Yes (2) End stage renal disease Is this a current diagnosis for this admission?: Yes (3) Diabetes mellitus type 2 in obese Is this a current diagnosis for this admission?: Yes (4) Anemia of chronic disease Is this a current diagnosis for this admission?: Yes (5) Adult failure to thrive Is this a current diagnosis for this admission?: Yes (6) Hypoglycemia Is this a current diagnosis for this admission?: Yes - Time Time Spent with patient: 15-24 minutes Level of Care: [facility]
--- NOTE | 2019-10-25 19:28 | PDOC TRANSFER SUMMARY ---
Impression - Admit/DC Date/PCP Admission Date/Primary Care Provider: 10/14/19 16:53 JOSE MANUEL MIX MD Discharge Date: 10/26/19 - Discharge Diagnosis (1) Displaced intertrochanteric fracture of right femur, initial encounter for closed fracture Is this a current diagnosis for this admission?: Yes (2) End stage renal disease Is this a current diagnosis for this admission?: Yes (3) Diabetes mellitus type 2 in obese Is this a current diagnosis for this admission?: Yes (4) Anemia of chronic disease Is this a current diagnosis for this admission?: Yes (5) Adult failure to thrive Is this a current diagnosis for this admission?: Yes (6) Hypoglycemia Is this a current diagnosis for this admission?: Yes - Additional Information Resuscitation Status: Do Not Resuscitate Discharge Diet: Tube Feeding (Comments) Referrals: JOSE MANUEL MIX MD [Primary Care Provider] - Follow up as needed Home Medications: Levothyroxine Sodium 150 mcg PO Q6AM 12/22/18 Dextrose 50%-Water [Dextrose Inj 50% Syringe (25 gm/50 ml)] 12.5 gm IV PRN PRN disp.syrin 10/25/19 Dextrose 50%-Water [Dextrose Inj 50% Syringe (25 gm/50 ml)] 25 gm IV PRN PRN disp.syrin 10/25/19 Dextrose [Glutose 40% Gel 15 gm Tube] 30 gm PO PRN PRN tube 10/25/19 Glucagon,Human Recombinant [Glucagen Inj 1 mg Vial] 1 mg SUBCUT PRN PRN vial 10/25/19 Levothyroxine Sodium [Synthroid 0.15 mg Tablet] 0.15 mg NG Q6AM tablet 10/25/19 Pantoprazole Sodium [Protonix [address] Packet] 40 mg NG Q6AM granpkt. 10/25/19 History of Present Illiness History of Present Illness: LOVELY ESPAÑA is a 78 year old female patient who presented to the [facility] following a mechanical fall at home. Patient reported that she fell in the process of getting into her bath at home. She denied any preceding chest pain, palpitation or irregular heart beat. She was unable to get off the floor due to associated right hip pain. She was on the floor for about three hours until her daughter return from work and was able to activate EMS. She denied loss of consciousness or seizure activities. She denied any nausea but reported episode of vomiting after attempt at eating earlier today. No abdominal pain. Patient reported ongoing mobility at home that might have contributed to her fall due to inability to use her walker and wheelchair beyond her bathroom door. Her initial ED evaluation was significant for right intertrochantic femoral fracture with osteoporosis on her X ray. She was advised hospitalization for further evaluation and surgical intervention. Her morbidities are as listed below. Hospital Course Hospital Course: Patient was admitted for the management of fracture of the right hip joint, she was seen in consultation by the orthopedic she underwent open reduction and internal fixation of the joint without complication. Hospital course was complicated with persistent hypoglycemia, she is a diabetic, she is not on any oral hypoglycemic agent, intake was very poor it was felt that the poor intake is partly contributing to the hypoglycemia. Patient's daughter also said that intake has been diminished even before this admission, she has end-stage renal disease on maintenance hemodialysis she was seen by nephrology she had hemodialysis session in the hospital during this admission.The persistent hypoglycemia was manage initially with 5% dextrose intravenously but this obviously is not enough to achieve adequate daily caloric requirement because of the extremely poor intake ,family was agreeable to PEG tube placement. Consultation was obtained from surgery for PEG tube placement but this was converted to open gastrectomy on the day she was supposed to have a PEG tube placement for technico-medical reasons Physical Exam Vital Signs: Temp Pulse Resp BP Pulse Ox 97.4 F 53 L 17 130/51 H 100 10/25/19 15:23 10/25/19 15:23 10/25/19 15:23 10/25/19 15:23 10/25/19 15:23 Pulse Oximeter Continuous Start: 10/16/19 14:26 Freq: RTQ4 Status: Complete Protocol: Document 10/22/19 08:14 [facility] (Rec: 10/22/19 08:14 [facility] [email or web address]) Pulse Oximetry Assessment Equipment Usage Equipment Standby Continuous SpO2 Machine # 11 Intake & Output 10/24/19 10/25/19 10/26/19 06:59 06:59 06:59 Intake Total 1488 2690 0 Output Total 5 1690 Balance 1483 1000 0 Weight 78.3 kg 80.1 kg General appearance: PRESENT: no acute distress Eye exam: PRESENT: PERRLA Respiratory exam: PRESENT: clear to auscultation debbie Cardiovascular exam: PRESENT: +S1, +S2 GI/Abdominal exam: PRESENT: soft Results Laboratory Results: WBC 13.7 10^3/uL (4.0-10.5) H D 10/24/19 05:33 RBC 3.32 10^6/uL (3.72-5.28) L 10/24/19 05:33 Hgb 10.2 g/dL (12.0-15.5) L 10/24/19 05:33 Hct 31.4 % (36.0-47.0) L 10/24/19 05:33 MCV 95 fl (80-97) 10/24/19 05:33 MCH 30.9 pg (27.0-33.4) 10/24/19 05:33 MCHC 32.6 g/dL (32.0-36.0) 10/24/19 05:33 RDW 20.2 % (11.5-14.0) H 10/24/19 05:33 Plt Count 219 10^3/uL (150-450) 10/24/19 05:33 Lymph % (Auto) 4.8 % (13-45) L 10/24/19 05:33 [place] % (Auto) 3.7 % (3-13) 10/24/19 05:33 Eos % (Auto) 0.0 % (0-6) 10/24/19 05:33 Baso % (Auto) 0.1 % (0-2) 10/24/19 05:33 Absolute Neuts (auto) 12.5 10^3/uL (1.7-8.2) H 10/24/19 05:33 Absolute Lymphs (auto) 0.7 10^3/uL (0.5-4.7) 10/24/19 05:33 Absolute Monos (auto) 0.5 10^3/uL (0.1-1.4) 10/24/19 05:33 Absolute Eos (auto) 0.0 10^3/uL (0.0-0.6) 10/24/19 05:33 Absolute Basos (auto) 0.0 10^3/uL (0.0-0.2) 10/24/19 05:33 Seg Neutrophils % 91.4 % (42-78) H 10/24/19 05:33 PT 14.0 SEC (11.4-15.4) 10/14/19 14:24 INR 1.08 10/14/19 14:24 APTT 28.7 SEC (23.5-35.8) 10/14/19 14:24 Sodium 130.6 mmol/L (137-145) L 10/24/19 05:33 Potassium 3.7 mmol/L (3.6-5.0) 10/24/19 05:33 Chloride 97 mmol/L (98-107) L 10/24/19 05:33 Carbon Dioxide 27 mmol/L (22-30) 10/24/19 05:33 Anion Gap 7 (5-19) 10/24/19 05:33 BUN 18 mg/dL (7-20) 10/24/19 05:33 Creatinine 4.35 mg/dL (0.52-1.25) H 10/24/19 05:33 Est GFR ( Amer) 12 (>60) L 10/24/19 05:33 Est GFR (MDRD) Non-Af 10 (>60) L 10/24/19 05:33 Glucose 115 mg/dL (75-110) H 10/24/19 05:33 POC Glucose 127 mg/dL (70-110) H 10/25/19 16:02 Lactic Acid 1.6 mmol/L (0.7-2.1) 10/14/19 14:24 Calcium 8.2 mg/dL (8.4-10.2) L 10/24/19 05:33 Total Bilirubin 0.7 mg/dL (0.2-1.3) 10/18/19 13:25 Direct Bilirubin 0.5 mg/dL (0.0-0.4) H 10/18/19 13:25 Neonat Total Bilirubin Not Reportable 10/18/19 13:25 Neonat Direct Bilirubin Not Reportable 10/18/19 13:25 Neonat Indirect Bili Not Reportable 10/18/19 13:25 AST 94 U/L (14-36) H 10/18/19 13:25 ALT 13 U/L (<35) 10/18/19 13:25 Alkaline Phosphatase 168 U/L (38-126) H 10/18/19 13:25 Creatine Kinase 26 U/L (30-135) L 10/14/19 14:24 Troponin I 0.014 ng/mL 10/14/19 14:24 Total Protein 5.3 g/dL (6.3-8.2) L 10/18/19 13:25 Albumin 2.4 g/dL (3.5-5.0) L 10/18/19 13:25 Lipase 62.0 U/L (23-300) 10/14/19 14:24 Blood Type O POSITIVE 10/18/19 15:36 Antibody Screen NEGATIVE 10/18/19 15:36 Crossmatch See Detail 10/18/19 15:36 10/14/19 14:24 Troponin I 0.014 Impressions: Hip/Pelvis X-Ray 10/14/19 12:09 IMPRESSION: Acute comminuted intertrochanteric right proximal femoral fracture with varus angulation Chest X-Ray 10/14/19 12:30 IMPRESSION: Stable cardiomegaly Trace right pleural fluid No gross acute infiltrates Head CT 10/14/19 12:32 IMPRESSION: No significant interval change. Mild chronic small vessel ischemic change and mild cerebral and cerebellar atrophy, stable. No acute intracranial hemorrhage, mass, or evidence of acute territorial infarct. EVIDENCE OF ACUTE STROKE: NO. Cervical Spine CT 10/14/19 12:33 IMPRESSION: CHRONIC DEGENERATIVE CHANGES. NO ACUTE FINDINGS. Abdomen/Pelvis CT 10/14/19 12:37 IMPRESSION: 1. Acute impacted intertrochanteric fracture right proximal femur. 2. Left lower lobe consolidation and small left pleural effusion. Finding may represent infectious/ inflammatory process. 3. Severe cardiomegaly with moderate pericardial effusion. 4. Colonic diverticulosis without evidence of diverticulitis. Hip X-Ray 10/16/19 00:00 IMPRESSION: IMAGE(S) OBTAINED DURING PROCEDURE. Chest X-Ray 10/18/19 00:00 IMPRESSION: NO ACUTE RADIOGRAPHIC FINDING IN THE CHEST. KUB X-Ray 10/21/19 00:00 IMPRESSION: NO RADIOGRAPHIC EVIDENCE FOR ACUTE ABDOMINAL DISEASE. Left pleural effusion. Chest X-Ray 10/23/19 00:00 IMPRESSION: Persistent left pleural effusion with probable underlying left lower lobe atelectasis or pneumonia. No other significant interval change. Head CT 10/23/19 00:00 IMPRESSION: CHRONIC CHANGES OF ATROPHY AND MICROVASCULAR ISCHEMIA. NO ACUTE PROCESS. EVIDENCE OF ACUTE STROKE: NO. Stroke Is this a Stroke Patient?: No Acute Heart Failure - Is this a Heart Failure Patient?: No
[2019-10-26] MEDS: METOCLOPRAMIDE HCL INJ/PF 10 MG/2 ML SDV IV SCH ×4 (00:49→17:23)
[2019-10-26] MEDS: INSULIN LISPRO 100 UNIT/ML 3 ML VIAL SUBCUT SCH ×4 (00:50→17:12)
[2019-10-26] MEDS: HEPARIN SOD (PORCINE) 5,000 UNIT/ML 1 ML VIAL SUBCUT SCH ×3 (06:52→21:37)
[2019-10-26] MEDS: PANTOPRAZOLE SODIUM 40 MG PACKET.DR NG SCH (06:54)
[2019-10-26] MEDS: LEVOTHYROXINE SODIUM 0.15 MG TABLET NG SCH (06:55)
[2019-10-26 07:36] LABS: HEMATOCRIT 28.2 % (36.0-47.0); HEMOGLOBIN 9.3 g/dL (12.0-15.5); MEAN CORPUSCULAR HEMOGLOBIN 30.8 pg (27.0-33.4); MEAN CORPUSCULAR HGB CONC 32.9 g/dL (32.0-36.0); MEAN CORPUSCULAR VOLUME 94 fl (80-97); PLATELET COUNT 210 10^3/uL (150-450); RED BLOOD COUNT 3.02 10^6/uL (3.72-5.28); RED CELL DISTRIBUTION WIDTH 20.4 % (11.5-14.0); WHITE BLOOD COUNT 17.8 10^3/uL (4.0-10.5)
[2019-10-26 08:04] LABS: ALBUMIN 1.7 g/dL (3.5-5.0); ALKALINE PHOSPHATASE 121 U/L (38-126); ASPARTATE AMINO TRANSFERASE 17 U/L (14-36); BILIRUBIN,DIRECT 0.1 mg/dL (0.0-0.4); BILIRUBIN,TOTAL 0.5 mg/dL (0.2-1.3); BLOOD UREA NITROGEN 23 mg/dL (7-20); CALCIUM 8.1 mg/dL (8.4-10.2); GLUCOSE 136 mg/dL (75-110); PHOSPHORUS 2.5 mg/dL (2.5-4.5); POTASSIUM 3.7 mmol/L (3.6-5.0); TOTAL PROTEIN 4.3 g/dL (6.3-8.2)
[2019-10-26 08:09] LABS: CARBON DIOXIDE 29 mmol/L (22-30); CHLORIDE 91 mmol/L (98-107)
[2019-10-26 09:24] LABS: ANION GAP 3 (5-19)
[2019-10-26 09:39] LABS: ABSOLUTE LYMPHOCYTES# (MANUAL) 0.5 10^3/uL (0.5-4.7); ABSOLUTE MONOCYTES # (MANUAL) 0.2 10^3/uL (0.1-1.4); BASOPHILS % (MANUAL) 0 % (0-2); EOSINOPHILS % (MANUAL) 1 % (0-6); LYMPHOCYTES % (MANUAL) 3 % (13-45); MONOCYTES % (MANUAL) 1 % (3-13); SEGMENTED NEUTROPHILS % (MAN) 95 % (42-78); TOTAL CELLS COUNTED 100
[2019-10-26 09:44] LABS: ANISOCYTOSIS 2+; PLATELET COMMENT ADEQUATE
[2019-10-26 09:45] LABS: POIKILOCYTOSIS SLIGHT; POLYCHROMASIA SLIGHT; TARGET CELLS SLIGHT
[2019-10-26 09:46] LABS: OVALOCYTES SLIGHT
[2019-10-26] MEDS ORDERED: EPOETIN ALFA-EPBX 20,000 UNIT in SYRINGE, DISPOSABLE, 1 EACH IV PRN (10:01)
[2019-10-26] MEDS: DEXTROSE 10%-WATER 1,000 ML IV PRN (12:15)
--- NOTE | 2019-10-26 12:41 | PDOC PROGRESS REPORT ---
Subjective Progress Note for:: 10/26/19 Reason For Visit: Patient seen today on dialysis. She is undergoing dialysis without any issues. On chart review I note that she has not been eating and she has now had a G-tube placed. She is getting 20 cc of tube feeds per hour and being advanced to 30. Her blood sugars have been running low and she is on a D 10 drip. However labs on review shows sodium dropping down to 123. She is also having a spike in her white count up to 17 with a left shift. She denies any history of fever or chills. There is also kind of foul smell coming from her back. Discussions were done with the treating nurse on the floor and it is revealing that she may have a sacral decubitus ulcer. She also mentions that Dr. Adame is aware of the rising white count and is ordered further labs and imaging studies including CT of her abdomen. Dialysis orders were reviewed with the treating dialysis nurse. Physical Exam Vital Signs: Temp Pulse Resp BP Pulse Ox 98.0 F 69 20 140/49 H 100 10/26/19 00:15 10/26/19 07:00 10/26/19 00:15 10/26/19 00:15 10/26/19 00:39 Pulse Oximeter Continuous Start: 10/16/19 14:26 Freq: RTQ4 Status: Complete Protocol: Document 10/22/19 08:14 [facility] (Rec: 10/22/19 08:14 [facility] [id number]) Pulse Oximetry Assessment Equipment Usage Equipment Standby Continuous SpO2 Machine # 11 Intake & Output 10/25/19 10/26/19 10/27/19 06:59 06:59 06:59 Intake Total 2690 390 Output Total 1690 0 Balance 1000 390 Weight 80.1 kg 72.8 kg General appearance: PRESENT: no acute distress Respiratory exam: PRESENT: clear to auscultation debbie. ABSENT: crackles Cardiovascular exam: PRESENT: +S1, +S2 GI/Abdominal exam: PRESENT: normal bowel sounds, soft. ABSENT: organomegaly, tenderness Extremities exam: ABSENT: pedal edema Neurological exam: PRESENT: alert, awake, oriented to person Results Laboratory Results: 10/26/19 07:05 10/26/19 07:05 10/26/19 10/26/19 10/26/19 07:05 07:05 07:05 WBC 17.8 H Cancelled RBC 3.02 L Cancelled Hgb 9.3 L Cancelled Hct 28.2 L Cancelled MCV 94 Cancelled MCH 30.8 Cancelled MCHC 32.9 Cancelled RDW 20.4 H Cancelled Plt Count 210 Cancelled Seg Neutrophils % Not Reportable Cancelled Sodium 123.8 L Potassium 3.7 Chloride 91 L Carbon Dioxide 29 Anion Gap 3 L BUN 23 H Creatinine 4.04 H Est GFR ( Amer) 13 L Glucose 136 H Calcium 8.1 L Phosphorus 2.5 Total Bilirubin 0.5 AST 17 Alkaline Phosphatase 121 Ammonia Total Protein 4.3 L Albumin 1.7 L 10/26/19 08:06 WBC RBC Hgb Hct MCV MCH MCHC RDW Plt Count Seg Neutrophils % Sodium Potassium Chloride Carbon Dioxide Anion Gap BUN Creatinine Est GFR ( Amer) Glucose Calcium Phosphorus Total Bilirubin AST Alkaline Phosphatase Ammonia < 8.7 L Total Protein Albumin 10/14/19 10/14/19 14:24 14:24 Creatine Kinase 26 L Troponin I 0.014 Impressions: Hip/Pelvis X-Ray 10/14/19 12:09 IMPRESSION: Acute comminuted intertrochanteric right proximal femoral fracture with varus angulation Cervical Spine CT 10/14/19 12:33 IMPRESSION: CHRONIC DEGENERATIVE CHANGES. NO ACUTE FINDINGS. Abdomen/Pelvis CT 10/14/19 12:37 IMPRESSION: 1. Acute impacted intertrochanteric fracture right proximal femur. 2. Left lower lobe consolidation and small left pleural effusion. Finding may represent infectious/ inflammatory process. 3. Severe cardiomegaly with moderate pericardial effusion. 4. Colonic diverticulosis without evidence of diverticulitis. Hip X-Ray 10/16/19 00:00 IMPRESSION: IMAGE(S) OBTAINED DURING PROCEDURE. KUB X-Ray 10/21/19 00:00 IMPRESSION: NO RADIOGRAPHIC EVIDENCE FOR ACUTE ABDOMINAL DISEASE. Left pleural effusion. Chest X-Ray 10/23/19 00:00 IMPRESSION: Persistent left pleural effusion with probable underlying left lower lobe atelectasis or pneumonia. No other significant interval change. Head CT 10/23/19 00:00 IMPRESSION: CHRONIC CHANGES OF ATROPHY AND MICROVASCULAR ISCHEMIA. NO ACUTE PROCESS. EVIDENCE OF ACUTE STROKE: NO. Assessment & Plan - Diagnosis (1) Closed intertrochanteric fracture of right femur Qualifiers: Encounter type: initial encounter Fracture alignment: displaced Qualified Code(s): S72.141A - Displaced intertrochanteric fracture of right femur, initial encounter for closed fracture Is this a current diagnosis for this admission?: Yes Plan: Status post right ORIF successfully and uneventfully. Orthopedics following. (2) End stage chronic kidney disease Plan: Patient currently undergoing dialysis without any issues. Vital signs are stable. Dialysis being supervised. Dialysis orders were reviewed with the treating dialysis nurse. Plan to remove a liter of fluid on ultrafiltration. (3) Diabetes mellitus type 2 in obese Is this a current diagnosis for this admission?: Yes Plan: As per primary care. (4) Anemia in chronic kidney disease Is this a current diagnosis for this admission?: Yes Plan: Stable. Adjust erythropoietin. (5) Hypertension Qualifiers: Hypertension type: essential hypertension Qualified Code(s): I10 - Essential (primary) hypertension Is this a current diagnosis for this admission?: Yes Plan: Stable (6) Leukocytosis Plan: She is status post right ORIF and recent G-tube placement. She is also having a foul smell emanating from her back suggestive of possible sacral decubitus ulcer which needs to be looked at. Discussed with treating nurse on the floor. (7) Hypoglycemia Is this a current diagnosis for this admission?: Yes Plan: Has switched her from a D10 drip to D50 every 2-4 hourly given her drop in her sodium. Discussed with the treating nurse to check her blood sugars every 2 hours until be maintain her blood sugars from 100-140 range at which point we can change her blood sugar check to every 6 hours. (8) Hyponatremia Plan: We will stop the D10 drip at the moment and we have also removed a liter of fluid from her. Recheck her sodium again at 15 hours and then again in the morning. Discussed with treating nurse on the floor.
--- NOTE | 2019-10-26 13:00 | RADIOLOGY REPORT (SQ) ---
EXAM DESCRIPTION: CHEST SINGLE VIEW IMAGES COMPLETED DATE/TIME: 10/26/2019 12:45 pm REASON FOR STUDY: ? sepsis COMPARISON: AP view of the chest from 10/23/2019. EXAM PARAMETERS: NUMBER OF VIEWS: One view. TECHNIQUE: An AP view of the chest was obtained. RADIATION DOSE: NA LIMITATIONS: None. FINDINGS: LUNGS AND PLEURA: The dense opacity in the inferior left hemithorax that obscures the cont our of the left hemidiaphragm and blunts the left lateral costophrenic sulcus is unchanged. The richelle lar opacity on the contralateral side is increased. There is no pneumothorax. MEDIASTINUM AND HILAR STRUCTURES: No mediastinal or hilar contour abnormality. HEART AND VASCULAR STRUCTURES: The cardiac silhouette is enlarged. BONES: No acute findings. HARDWARE: Surgical clips that project within the proximal left upper extremity. OTHER: No other finding. IMPRESSION: Increased dense opacity in the inferior right hemithorax that could represent a combinat ion of pleural fluid, atelectasis and/or pneumonia. The similar opacity on the contralateral side is unchanged. TECHNICAL DOCUMENTATION: JOB ID: [id number] 2010 [employer]- All Rights Reserved Reading location - IP/workstation name: [email or web address]
[2019-10-26] MEDS: DEXTROSE 50%-WATER 25 GM/50 ML DISP.SYRIN IV PRN (13:11)
--- NOTE | 2019-10-26 13:58 | RADIOLOGY REPORT (SQ) ---
EXAM DESCRIPTION: CT ABD/PELVIS NO ORAL OR IV IMAGES COMPLETED DATE/TIME: 10/26/2019 12:34 pm REASON FOR STUDY: unexplain leucocytosis ,recent open gastrostomy. COMPARISON: Chest radiograph, same date. Abdomen KUB, 10/21/2019. TECHNIQUE: CT scan of the abdomen and pelvis performed without intravenous or oral contrast. Images reviewed with lung, soft tissue, and bone windows. Reconstructed coronal and sagittal MPR images revi ewed. All images stored on PACS. All CT scanners at this facility use dose modulation, iterative reconstruction, and/or weight based d osing when appropriate to reduce radiation dose to as low as reasonably achievable (ALARA). [facility]: Dose Right [facility]: CareDose [facility]: Dose Right [facility]: Teradose 4D [facility]: [employer] RADIATION DOSE: CT Rad equipment meets quality standard of care and radiation dose reduction techniq ues were employed. CTDIvol: 4.4 mGy. DLP: 231 mGy-cm.mGy. LIMITATIONS: None. FINDINGS: LOWER CHEST: Increased small to moderate right and trace left pleural effusion. Compressi ve atelectasis/ consolidation at the right lung base. Severe cardiomegaly is stable. Small pericard ial effusion/ pericardial thickening also unchanged. NON-CONTRASTED LIVER, SPLEEN, ADRENALS: Evaluation limited by lack of IV contrast. No identified sign ificant masses. PANCREAS: No masses. No peripancreatic inflammatory changes. GALLBLADDER: Surgically absent. RIGHT KIDNEY AND URETER: Stable renal cortical atrophy. No suspicious masses. Assessment limited by lack of IV contrast. No significant calcifications. No hydronephrosis or hydroureter. LEFT KIDNEY AND URETER: Stable renal cortical atrophy. No suspicious masses. Assessment limited by l ack of IV contrast. No significant calcifications. No hydronephrosis or hydroureter. AORTA AND RETROPERITONEUM: No aneurysm. No retroperitoneal masses or adenopathy. BOWEL AND PERITONEAL CAVITY: There is a new gastrostomy tube with retention balloon in the gastric eleazar men. No bowel obstruction. No bowel wall thickening. No significant inflammatory change. Small am ount of pneumoperitoneum in the upper right abdomen and adjacent to the stomach, consistent with rece nt history of open gastrostomy. Fat containing umbilical hernia. APPENDIX: Normal. PELVIS, BLADDER, AND ABDOMINAL WALL:Uterus and ovaries have normal size. Urinary bladder is unremark able. BONES: Multilevel spondylosis and degenerative disc disease. Partial visualization intramedullary fi xation right femur. OTHER: Diffuse subcutaneous edema. Left external iliac central venous catheter tip at the common chayo ac confluence. IMPRESSION: 1. Small to moderate right pleural effusion with compressive atelectasis and/or consolidation at the right lung base. Superimposed pneumonia is not excluded. 2. Severe cardiomegaly with small pericardial effusion/pericardial thickening, not significantly shah ged. 3. New gastrostomy tube with retention balloon in the gastric lumen. Small amount of pneumoperitoneu m consistent with recent open gastrostomy. No focal drainable abscess. COMMENT: Quality ID # [id number]: Final reports with documentation of one or more dose reduction techniques (e.g., Automated exposure control, adjustment of the mA and/or kV according to patient size, use of iterative reconstruction technique) TECHNICAL DOCUMENTATION: JOB ID: [id number] 2010 [email or web address]- All Rights Reserved Reading location - IP/workstation name: [email or web address]
[2019-10-26 16:06] LABS: BLOOD UREA NITROGEN 13 mg/dL (7-20); CALCIUM 7.9 mg/dL (8.4-10.2); CARBON DIOXIDE 34 mmol/L (22-30); CHLORIDE 95 mmol/L (98-107); GLUCOSE 164 mg/dL (75-110); POTASSIUM 3.5 mmol/L (3.6-5.0)
[2019-10-26 16:15] LABS: ANION GAP 3 (5-19)
--- NOTE | 2019-10-26 20:16 | PDOC PROGRESS REPORT ---
Subjective Progress Note for:: 10/26/19 Subjective:: Patient was supposed to be transferred to longterm today but it was noticed to have severely increased white blood cell count, evaluation was done she was found to have a foul-smelling sacral decubital ulcer. Chest x-ray showed increased dense opacity in the inferior right hemithorax that could represent combination of pleural fluid atelectasis and/or pneumonia, CAT scan of the abdomen and pelvis was done without contrast especially because she just had a recent open gastrostomy tube placement, the CAT scan was negative. The leukocytosis is probably from pneumonia probably aspiration and also from the sacral decubital ulcer Reason For Visit: CLOSED INTERTROCHANTERIC FRACTURE R FEMUR,CHRONIC Physical Exam Vital Signs: Temp Pulse Resp BP Pulse Ox 97.5 F 71 19 122/42 L 99 10/26/19 15:21 10/26/19 15:21 10/26/19 15:21 10/26/19 15:21 10/26/19 15:21 Pulse Oximeter Continuous Start: 10/16/19 14:26 Freq: RTQ4 Status: Complete Protocol: Document 10/22/19 08:14 [facility] (Rec: 10/22/19 08:14 [facility] [id number]) Pulse Oximetry Assessment Equipment Usage Equipment Standby Continuous SpO2 Machine # 11 Intake & Output 10/25/19 10/26/19 10/27/19 06:59 06:59 06:59 Intake Total 2690 390 Output Total 1690 0 1000 Balance 1000 390 -1000 Weight 80.1 kg 72.8 kg 72.8 kg General appearance: PRESENT: no acute distress Eye exam: PRESENT: PERRLA Respiratory exam: PRESENT: rhonchi Cardiovascular exam: PRESENT: +S1, +S2 Extremities exam: PRESENT: other - Sacral decubital ulcer stage II Neurological exam: PRESENT: alert Results Laboratory Results: 10/26/19 07:05 10/26/19 15:20 10/26/19 10/26/19 10/26/19 07:05 07:05 07:05 WBC 17.8 H Cancelled RBC 3.02 L Cancelled Hgb 9.3 L Cancelled Hct 28.2 L Cancelled MCV 94 Cancelled MCH 30.8 Cancelled MCHC 32.9 Cancelled RDW 20.4 H Cancelled Plt Count 210 Cancelled Seg Neutrophils % Not Reportable Cancelled Sodium 123.8 L Potassium 3.7 Chloride 91 L Carbon Dioxide 29 Anion Gap 3 L BUN 23 H Creatinine 4.04 H Est GFR ( Amer) 13 L Glucose 136 H Calcium 8.1 L Phosphorus 2.5 Total Bilirubin 0.5 AST 17 Alkaline Phosphatase 121 Ammonia Total Protein 4.3 L Albumin 1.7 L 10/26/19 10/26/19 08:06 15:20 WBC RBC Hgb Hct MCV MCH MCHC RDW Plt Count Seg Neutrophils % Sodium 131.8 L Potassium 3.5 L Chloride 95 L Carbon Dioxide 34 H Anion Gap 3 L BUN 13 Creatinine 2.16 H Est GFR ( Amer) 27 L Glucose 164 H Calcium 7.9 L Phosphorus Total Bilirubin AST Alkaline Phosphatase Ammonia < 8.7 L Total Protein Albumin 10/14/19 10/14/19 14:24 14:24 Creatine Kinase 26 L Troponin I 0.014 Impressions: Hip/Pelvis X-Ray 10/14/19 12:09 IMPRESSION: Acute comminuted intertrochanteric right proximal femoral fracture with varus angulation Cervical Spine CT 10/14/19 12:33 IMPRESSION: CHRONIC DEGENERATIVE CHANGES. NO ACUTE FINDINGS. Hip X-Ray 10/16/19 00:00 IMPRESSION: IMAGE(S) OBTAINED DURING PROCEDURE. KUB X-Ray 10/21/19 00:00 IMPRESSION: NO RADIOGRAPHIC EVIDENCE FOR ACUTE ABDOMINAL DISEASE. Left pleural effusion. Head CT 10/23/19 00:00 IMPRESSION: CHRONIC CHANGES OF ATROPHY AND MICROVASCULAR ISCHEMIA. NO ACUTE PROCESS. EVIDENCE OF ACUTE STROKE: NO. Abdomen/Pelvis CT 10/26/19 00:00 IMPRESSION: 1. Small to moderate right pleural effusion with compressive atelectasis and/or consolidation at the right lung base. Superimposed pneumonia is not excluded. 2. Severe cardiomegaly with small pericardial effusion/pericardial thickening, not significantly changed. 3. New gastrostomy tube with retention balloon in the gastric lumen. Small amount of pneumoperitoneum consistent with recent open gastrostomy. No focal drainable abscess. Chest X-Ray 10/26/19 00:00 IMPRESSION: Increased dense opacity in the inferior right hemithorax that could represent a combination of pleural fluid, atelectasis and/or pneumonia. The similar opacity on the contralateral side is unchanged. Assessment & Plan - Diagnosis (1) Displaced intertrochanteric fracture of right femur, initial encounter for closed fracture Is this a current diagnosis for this admission?: Yes (2) End stage renal disease Is this a current diagnosis for this admission?: Yes (3) Diabetes mellitus type 2 in obese Is this a current diagnosis for this admission?: Yes (4) Anemia of chronic disease Is this a current diagnosis for this admission?: Yes (5) Adult failure to thrive Is this a current diagnosis for this admission?: Yes (6) Hypoglycemia Is this a current diagnosis for this admission?: Yes (7) Aspiration pneumonia Qualifiers: Aspiration pneumonia type: unspecified Laterality: right Lung location: lower lobe of lung Qualified Code(s): J69.0 - Pneumonitis due to inhalation of food and vomit Is this a current diagnosis for this admission?: Yes Plan: This is probably aspiration pneumonia start Unasyn IV antibiotic (8) Sacral decubitus ulcer, stage II Is this a current diagnosis for this admission?: Yes - Time Time Spent with patient: 35 or more minutes Level of Care: IMCU
[2019-10-26] MEDS: AMPICILLIN SODIUM/SULBACTAM NA 1.5 GM in NORMAL SALINE 50 ML IV SCH (21:36)
[2019-10-26] MEDS: MORPHINE SULFATE 10 MG/ML INJ IV PRN (21:36)
[2019-10-27] MEDS: METOCLOPRAMIDE HCL INJ/PF 10 MG/2 ML SDV IV SCH ×4 (00:02→17:07)
[2019-10-27] MEDS: INSULIN LISPRO 100 UNIT/ML 3 ML VIAL SUBCUT SCH ×4 (00:03→17:48)
[2019-10-27] MEDS: HEPARIN SOD (PORCINE) 5,000 UNIT/ML 1 ML VIAL SUBCUT SCH ×3 (05:29→22:24)
[2019-10-27] MEDS: PANTOPRAZOLE SODIUM 40 MG PACKET.DR NG SCH (05:29)
[2019-10-27] MEDS: AMPICILLIN SODIUM/SULBACTAM NA 1.5 GM in NORMAL SALINE 50 ML IV SCH ×4 (05:29→22:22)
[2019-10-27] MEDS: LEVOTHYROXINE SODIUM 0.15 MG TABLET NG SCH (05:30)
[2019-10-27] MEDS: MORPHINE SULFATE 10 MG/ML INJ IV PRN ×2 (05:37→15:22)
[2019-10-27 06:27] LABS: BLOOD UREA NITROGEN 20 mg/dL (7-20); CALCIUM 8.1 mg/dL (8.4-10.2); GLUCOSE 131 mg/dL (75-110); POTASSIUM 3.8 mmol/L (3.6-5.0)
[2019-10-27 06:33] LABS: CARBON DIOXIDE 35 mmol/L (22-30); CHLORIDE 96 mmol/L (98-107)
[2019-10-27 06:44] LABS: ANION GAP 0 (5-19)
--- NOTE | 2019-10-27 08:26 | Operative Report ---
Operative Report DATE OF SURGERY: 10/27/19 PREOPERATIVE DIAGNOSIS: Sacral decubitus ulcer POSTOPERATIVE DIAGNOSIS: Stage III sacral decubitus ulcer, 4 x 4 centimeter OPERATION: Sharp debridement of sacral decubitus ulcer stage III SURGEON: BRADEN PEARSON ANESTHESIA: Other TISSUE REMOVED OR ALTERED: Necrotic tissue with subcu and fascia COMPLICATIONS: None ESTIMATED BLOOD LOSS: 5 cc QUANTITATIVE BLOOD LOSS: 5 INTRAOPERATIVE FINDINGS: Soft necrotic tissue about 4 x 4 cm. However no obvious collection underneath but still foul-smelling. PROCEDURE: Patient on bed placed at right lateral decubitus position and the necrotic tissue on the sacral area identified. Sharp debridement with the use of a 10 blade was used to starting around the margins and going down into the subcu and part of the fascia but not involving the bone. No obvious collection noted but has some foul-smelling area. Size of the necrotic tissue excised was about 4 x 4 cm in diameter. The tissue was excised down to and to viable areas and there was some bleeding on the edges. Dr. Rai was there to observe the necrotic tissue without any collection. At any rate the specimen will be sent for [employer]. The cavity was subsequently packed with sterile 4 x 4 and to be changed after a few hours with the wet-to-dry dressings. Nurse was informed about this and he was in attendance during the procedure holding the patient up on the lateral decubitus position. Diaper was then placed over the dressing. Patient tolerated procedure well estimated blood loss about 3 to 5cc.
--- NOTE | 2019-10-27 14:04 | PDOC PROGRESS REPORT ---
Subjective Progress Note for:: 10/27/19 Subjective:: Patient have a debridement of the sacral wound Patient is otherwise doing well alert awake hard to hearing No chest pain no short of breath No fever Patient is currently on IV antibiotic Reason For Visit: CLOSED INTERTROCHANTERIC FRACTURE R FEMUR,CHRONIC Physical Exam Vital Signs: Temp Pulse Resp BP Pulse Ox 98.7 F 81 18 144/56 H 100 10/27/19 10:56 10/27/19 10:56 10/27/19 10:56 10/27/19 10:56 10/27/19 10:56 Pulse Oximeter Continuous Start: 10/16/19 14:26 Freq: RTQ4 Status: Complete Protocol: Document 10/22/19 08:14 [facility] (Rec: 10/22/19 08:14 [facility] [id number]) Pulse Oximetry Assessment Equipment Usage Equipment Standby Continuous SpO2 Machine # 11 Intake & Output 10/26/19 10/27/19 10/28/19 06:59 06:59 06:59 Intake Total 390 50 100 Output Total 0 1000 0 Balance 390 -950 100 Weight 72.8 kg 82.6 kg General appearance: PRESENT: no acute distress, thin Eye exam: PRESENT: PERRLA Mouth exam: PRESENT: neck supple Respiratory exam: PRESENT: clear to auscultation debbie Cardiovascular exam: PRESENT: +S1, +S2 GI/Abdominal exam: PRESENT: normal bowel sounds, soft Additonal comments: peg tube intact Neurological exam: PRESENT: alert, awake Skin exam: PRESENT: dry Results Laboratory Results: 10/26/19 07:05 10/27/19 05:55 10/26/19 10/27/19 15:20 05:55 Sodium 131.8 L 131.3 L Potassium 3.5 L 3.8 Chloride 95 L 96 L Carbon Dioxide 34 H 35 H Anion Gap 3 L 0 L BUN 13 20 Creatinine 2.16 H 2.95 H Est GFR ( Amer) 27 L 19 L Glucose 164 H 131 H Calcium 7.9 L 8.1 L 10/14/19 10/14/19 14:24 14:24 Creatine Kinase 26 L Troponin I 0.014 Impressions: Hip/Pelvis X-Ray 10/14/19 12:09 IMPRESSION: Acute comminuted intertrochanteric right proximal femoral fracture with varus angulation Cervical Spine CT 10/14/19 12:33 IMPRESSION: CHRONIC DEGENERATIVE CHANGES. NO ACUTE FINDINGS. Hip X-Ray 10/16/19 00:00 IMPRESSION: IMAGE(S) OBTAINED DURING PROCEDURE. KUB X-Ray 10/21/19 00:00 IMPRESSION: NO RADIOGRAPHIC EVIDENCE FOR ACUTE ABDOMINAL DISEASE. Left pleural effusion. Head CT 10/23/19 00:00 IMPRESSION: CHRONIC CHANGES OF ATROPHY AND MICROVASCULAR ISCHEMIA. NO ACUTE PROCESS. EVIDENCE OF ACUTE STROKE: NO. Abdomen/Pelvis CT 10/26/19 00:00 IMPRESSION: 1. Small to moderate right pleural effusion with compressive atelectasis and/or consolidation at the right lung base. Superimposed pneumonia is not excluded. 2. Severe cardiomegaly with small pericardial effusion/pericardial thickening, not significantly changed. 3. New gastrostomy tube with retention balloon in the gastric lumen. Small amount of pneumoperitoneum consistent with recent open gastrostomy. No focal drainable abscess. Chest X-Ray 10/26/19 00:00 IMPRESSION: Increased dense opacity in the inferior right hemithorax that could represent a combination of pleural fluid, atelectasis and/or pneumonia. The similar opacity on the contralateral side is unchanged. Assessment & Plan - Diagnosis (1) Anemia of chronic disease Is this a current diagnosis for this admission?: Yes (2) Aspiration pneumonia Qualifiers: Aspiration pneumonia type: unspecified Laterality: right Lung location: lower lobe of lung Qualified Code(s): J69.0 - Pneumonitis due to inhalation of food and vomit Is this a current diagnosis for this admission?: Yes (3) Chronic renal failure Is this a current diagnosis for this admission?: Yes (4) Closed intertrochanteric fracture of right femur Qualifiers: Encounter type: initial encounter Fracture alignment: displaced Qualified Code(s): S72.141A - Displaced intertrochanteric fracture of right femur, initial encounter for closed fracture Is this a current diagnosis for this admission?: Yes (5) Diabetes mellitus type 2 in obese Is this a current diagnosis for this admission?: Yes (6) Leukocytosis Qualifiers: Leukocytosis type: unspecified Qualified Code(s): D72.829 - Elevated white blood cell count, unspecified Is this a current diagnosis for this admission?: Yes (7) Sacral decubitus ulcer, stage II Is this a current diagnosis for this admission?: Yes (8) Chronic diastolic (congestive) heart failure Is this a current diagnosis for this admission?: Yes - Time Time Spent with patient: 15-24 minutes Level of Care: IMCU Medications reviewed and adjusted accordingly: Yes Anticipated discharge: SNF Within: Other - Plan Summary Plan Summary: Continues to IV antibiotic we will repeat the CBC and Chem-7 in the morning
[2019-10-27] MEDS: ONDANSETRON HCL INJ/PF 4 MG/2 ML SDV IV PRN (19:29)
[2019-10-28] MEDS: MORPHINE SULFATE 10 MG/ML INJ IV PRN ×2 (00:58→13:50)
[2019-10-28] MEDS: METOCLOPRAMIDE HCL INJ/PF 10 MG/2 ML SDV IV SCH ×4 (01:03→17:50)
[2019-10-28] MEDS: INSULIN LISPRO 100 UNIT/ML 3 ML VIAL SUBCUT SCH ×4 (01:04→18:08)
[2019-10-28] MEDS: ONDANSETRON HCL INJ/PF 4 MG/2 ML SDV IV PRN ×2 (01:22→12:32)
[2019-10-28] MEDS: AMPICILLIN SODIUM/SULBACTAM NA 1.5 GM in NORMAL SALINE 50 ML IV SCH ×4 (03:46→22:16)
[2019-10-28 06:23] LABS: ABSOLUTE EOSINOPHILS # (AUTO) 0.1 10^3/uL (0.0-0.6); ABSOLUTE LYMPHOCYTES (AUTO) 0.6 10^3/uL (0.5-4.7); ABSOLUTE MONOCYTES (AUTO) 0.6 10^3/uL (0.1-1.4); ABSOLUTE NEUT (AUTO) 8.9 10^3/uL (1.7-8.2); BASOPHILS % (AUTO) 0.3 % (0-2); EOSINOPHILS % (AUTO) 0.8 % (0-6); HEMOGLOBIN 9.3 g/dL (12.0-15.5); LYMPHOCYTES % (AUTO) 5.9 % (13-45); MEAN CORPUSCULAR HEMOGLOBIN 31.8 pg (27.0-33.4); MEAN CORPUSCULAR HGB CONC 33.3 g/dL (32.0-36.0); MEAN CORPUSCULAR VOLUME 95 fl (80-97); MONOCYTES % (AUTO) 5.4 % (3-13); PLATELET COUNT 267 10^3/uL (150-450); RED BLOOD COUNT 2.94 10^6/uL (3.72-5.28); RED CELL DISTRIBUTION WIDTH 20.8 % (11.5-14.0); SEGMENTED NEUTROPHILS % (AUTO) 87.6 % (42-78); TOTAL CELLS COUNTED % (AUTO) 100 %; WHITE BLOOD COUNT 10.2 10^3/uL (4.0-10.5)
[2019-10-28] MEDS: PANTOPRAZOLE SODIUM 40 MG PACKET.DR NG SCH (06:33)
[2019-10-28] MEDS: HEPARIN SOD (PORCINE) 5,000 UNIT/ML 1 ML VIAL SUBCUT SCH ×3 (06:33→22:17)
[2019-10-28] MEDS: LEVOTHYROXINE SODIUM 0.15 MG TABLET NG SCH (06:33)
[2019-10-28 06:42] LABS: ANION GAP 5 (5-19); BLOOD UREA NITROGEN 33 mg/dL (7-20); CALCIUM 8.4 mg/dL (8.4-10.2); CARBON DIOXIDE 31 mmol/L (22-30); CHLORIDE 95 mmol/L (98-107); GLUCOSE 125 mg/dL (75-110); POTASSIUM 4.1 mmol/L (3.6-5.0)
--- NOTE | 2019-10-28 08:08 | RADIOLOGY REPORT (SQ) ---
EXAM DESCRIPTION: KUB/ABDOMEN (SINGLE VIEW) IMAGES COMPLETED DATE/TIME: 10/28/2019 7:38 am REASON FOR STUDY: nausea/ vomiting COMPARISON: 10/21/2019 NUMBER OF VIEWS: One view. TECHNIQUE: Supine radiographic image of the abdomen acquired. LIMITATIONS: None. FINDINGS: BOWEL GAS PATTERN: Gas and stool in the large bowel, nonobstructive pattern. Moderate sto ol at least. No evidence of mechanical bowel obstruction. CALCIFICATIONS: None. Phleboliths in the pelvis. SOFT TISSUES: No gross mass or suggestion of organomegaly. HARDWARE: G-tube. Left femoral line. BONES: Markedly osteopenic, extremely limited evaluation. OTHER: No other significant finding. IMPRESSION: NO RADIOGRAPHIC EVIDENCE FOR ACUTE ABDOMINAL DISEASE. TECHNICAL DOCUMENTATION: JOB ID: [id number] 2010 [employer]- All Rights Reserved Reading location - IP/workstation name: [email or web address]
--- NOTE | 2019-10-28 08:09 | RADIOLOGY REPORT (SQ) ---
EXAM DESCRIPTION: CHEST SINGLE VIEW IMAGES COMPLETED DATE/TIME: 10/28/2019 7:38 am REASON FOR STUDY: coughing COMPARISON: 10/26/2019 FINDINGS: One view chest AP portable upright. Persistent basilar volume loss/consolidation with bilateral effusions, left greater than right. Aera tion globally looks slightly improved with less vascular congestion. No pneumothorax. Stable cardiomediastinal silhouette. Osteopenia. TECHNICAL DOCUMENTATION: JOB ID: [id number] Reading location - IP/workstation name: [email or web address]
--- NOTE | 2019-10-28 10:01 | PDOC PROGRESS REPORT ---
Subjective Progress Note for:: 10/28/19 Subjective:: Patient was complaining some nausea vomiting this morning the tube feeding was hold Patient x-ray KUB is all stable X-ray chest is all stable Patient's denied any chest pain no abdominal pain Reason For Visit: CLOSED INTERTROCHANTERIC FRACTURE R FEMUR,CHRONIC Physical Exam Vital Signs: Temp Pulse Resp BP Pulse Ox 98.2 F 74 16 150/46 H 100 10/28/19 07:40 10/28/19 07:40 10/28/19 07:40 10/28/19 07:40 10/28/19 07:40 Pulse Oximeter Continuous Start: 10/16/19 14:26 Freq: RTQ4 Status: Complete Protocol: Document 10/22/19 08:14 [facility] (Rec: 10/22/19 08:14 [facility] [id number]) Pulse Oximetry Assessment Equipment Usage Equipment Standby Continuous SpO2 Machine # 11 Intake & Output 10/27/19 10/28/19 10/29/19 06:59 06:59 06:59 Intake Total 50 619 Output Total 1000 0 Balance -950 619 Weight 82.6 kg 84.4 kg General appearance: PRESENT: no acute distress Head exam: PRESENT: atraumatic, normocephalic Eye exam: PRESENT: EOMI, PERRLA. ABSENT: scleral icterus Ear exam: PRESENT: normal external ear exam Mouth exam: PRESENT: moist, tongue midline Neck exam: PRESENT: full ROM. ABSENT: carotid bruit, JVD, lymphadenopathy, thyromegaly Respiratory exam: PRESENT: clear to auscultation debbie Cardiovascular exam: PRESENT: RRR. ABSENT: diastolic murmur, rubs, systolic murmur Pulses: PRESENT: normal dorsalis pedis pul, +2 pedal pulses bilateral Vascular exam: PRESENT: normal capillary refill GI/Abdominal exam: PRESENT: normal bowel sounds, soft. ABSENT: distended, guarding, mass, organolmegaly, rebound, tenderness Rectal exam: PRESENT: deferred Neurological exam: PRESENT: alert, awake. ABSENT: motor sensory deficit Psychiatric exam: PRESENT: appropriate affect, normal mood. ABSENT: homicidal ideation, suicidal ideation Skin exam: PRESENT: dry, intact, warm. ABSENT: cyanosis, rash Results Laboratory Results: 10/28/19 04:55 10/28/19 04:55 10/28/19 10/28/19 04:55 04:55 WBC 10.2 RBC 2.94 L Hgb 9.3 L Hct 28.0 L MCV 95 MCH 31.8 MCHC 33.3 RDW 20.8 H Plt Count 267 Seg Neutrophils % 87.6 H Sodium 130.8 L Potassium 4.1 Chloride 95 L Carbon Dioxide 31 H Anion Gap 5 BUN 33 H Creatinine 3.65 H Est GFR ( Amer) 15 L Glucose 125 H Calcium 8.4 10/26/19 15:20 Blood Blood Culture (PCR) - Final Staphylococcus Species 10/27/19 07:30 Sacrum - Decubitis Ulcer Gram Stain - Final 10/14/19 10/14/19 14:24 14:24 Creatine Kinase 26 L Troponin I 0.014 Impressions: Hip/Pelvis X-Ray 10/14/19 12:09 IMPRESSION: Acute comminuted intertrochanteric right proximal femoral fracture with varus angulation Cervical Spine CT 10/14/19 12:33 IMPRESSION: CHRONIC DEGENERATIVE CHANGES. NO ACUTE FINDINGS. Hip X-Ray 10/16/19 00:00 IMPRESSION: IMAGE(S) OBTAINED DURING PROCEDURE. Head CT 10/23/19 00:00 IMPRESSION: CHRONIC CHANGES OF ATROPHY AND MICROVASCULAR ISCHEMIA. NO ACUTE PROCESS. EVIDENCE OF ACUTE STROKE: NO. Abdomen/Pelvis CT 10/26/19 00:00 IMPRESSION: 1. Small to moderate right pleural effusion with compressive atelectasis and/or consolidation at the right lung base. Superimposed pneumonia is not excluded. 2. Severe cardiomegaly with small pericardial effusion/pericardial thickening, not significantly changed. 3. New gastrostomy tube with retention balloon in the gastric lumen. Small amount of pneumoperitoneum consistent with recent open gastrostomy. No focal drainable abscess. KUB X-Ray 10/28/19 00:00 IMPRESSION: NO RADIOGRAPHIC EVIDENCE FOR ACUTE ABDOMINAL DISEASE. Assessment & Plan - Diagnosis (1) Anemia of chronic disease Is this a current diagnosis for this admission?: Yes (2) Aspiration pneumonia Qualifiers: Aspiration pneumonia type: unspecified Laterality: right Lung location: lower lobe of lung Qualified Code(s): J69.0 - Pneumonitis due to inhalation of food and vomit Is this a current diagnosis for this admission?: Yes (3) Chronic renal failure Is this a current diagnosis for this admission?: Yes (4) Closed intertrochanteric fracture of right femur Qualifiers: Encounter type: initial encounter Fracture alignment: displaced Qualified Code(s): S72.141A - Displaced intertrochanteric fracture of right femur, initial encounter for closed fracture Is this a current diagnosis for this admission?: Yes (5) Diabetes mellitus type 2 in obese Is this a current diagnosis for this admission?: Yes (6) Leukocytosis Qualifiers: Leukocytosis type: unspecified Qualified Code(s): D72.829 - Elevated white blood cell count, unspecified Is this a current diagnosis for this admission?: Yes (7) Sacral decubitus ulcer, stage II Is this a current diagnosis for this admission?: Yes (8) Chronic diastolic (congestive) heart failure Is this a current diagnosis for this admission?: Yes - Time Time Spent with patient: 15-24 minutes Level of Care: IMCU Medications reviewed and adjusted accordingly: Yes Anticipated discharge: Other Within: Other - Plan Summary Plan Summary: Continues the current IV antibiotic currently he will continue feeding for next 24 hours
--- NOTE | 2019-10-28 10:16 | Progress Note ---
Provider Note Provider Note: 78 y/o F s/p open G-tube placement and decubitus ulcer debridement. Her leukcytosis is improving. OK to use G-tube as needed. Damp to dry dressing chnages BID. Surgery will sign off at this time. Please renotify if needed.
[2019-10-28] MEDS: DOCUSATE SODIUM 100 MG/10 ML UDC GT SCH ×2 (12:15→17:50)
[2019-10-28] MEDS: POLYETHYLENE GLYCOL 3350 POWDER 17 GM/1 PACKET GT SCH (12:15)
[2019-10-29] MEDS: DEXTROSE 50%-WATER 25 GM/50 ML DISP.SYRIN IV PRN ×2 (00:07→11:51)
[2019-10-29] MEDS: METOCLOPRAMIDE HCL INJ/PF 10 MG/2 ML SDV IV SCH ×4 (00:13→17:44)
[2019-10-29] MEDS: MORPHINE SULFATE 10 MG/ML INJ IV PRN ×2 (01:51→08:50)
[2019-10-29] MEDS: AMPICILLIN SODIUM/SULBACTAM NA 1.5 GM in NORMAL SALINE 50 ML IV SCH ×2 (03:30→11:51)
[2019-10-29] MEDS ORDERED: EPOETIN ALFA-EPBX 10,000 UNIT in SYRINGE, DISPOSABLE, 1 EACH IV PRN (05:00)
[2019-10-29] MEDS: PANTOPRAZOLE SODIUM 40 MG PACKET.DR NG SCH (05:50)
[2019-10-29] MEDS: LEVOTHYROXINE SODIUM 0.15 MG TABLET NG SCH (05:50)
[2019-10-29] MEDS: INSULIN LISPRO 100 UNIT/ML 3 ML VIAL SUBCUT SCH ×4 (05:51→17:51)
[2019-10-29] MEDS: HEPARIN SOD (PORCINE) 5,000 UNIT/ML 1 ML VIAL SUBCUT SCH ×3 (05:51→22:06)
[2019-10-29 06:09] LABS: HEMATOCRIT 26.3 % (36.0-47.0); HEMOGLOBIN 8.8 g/dL (12.0-15.5); MEAN CORPUSCULAR HEMOGLOBIN 31.9 pg (27.0-33.4); MEAN CORPUSCULAR HGB CONC 33.5 g/dL (32.0-36.0); MEAN CORPUSCULAR VOLUME 95 fl (80-97); PLATELET COUNT 258 10^3/uL (150-450); RED BLOOD COUNT 2.76 10^6/uL (3.72-5.28); RED CELL DISTRIBUTION WIDTH 20.7 % (11.5-14.0); WHITE BLOOD COUNT 6.8 10^3/uL (4.0-10.5)
[2019-10-29 06:20] LABS: ANION GAP 5 (5-19); BLOOD UREA NITROGEN 42 mg/dL (7-20); CALCIUM 8.6 mg/dL (8.4-10.2); CARBON DIOXIDE 31 mmol/L (22-30); CHLORIDE 95 mmol/L (98-107); GLUCOSE 77 mg/dL (75-110); POTASSIUM 4.4 mmol/L (3.6-5.0)
--- NOTE | 2019-10-29 08:26 | PDOC PROGRESS REPORT ---
Subjective Subjective:: Patient seen in dialysis. Currently laying in bed complaining of nausea at night no complaints of pain today. Denies chest pain or shortness of breath. Reason For Visit: CLOSED INTERTROCHANTERIC FRACTURE R FEMUR,CHRONIC Physical Exam Vital Signs: Temp Pulse Resp BP Pulse Ox 97.8 F 63 16 156/51 H 100 10/28/19 16:10 10/29/19 07:00 10/28/19 16:10 10/28/19 16:10 10/28/19 16:10 Pulse Oximeter Continuous Start: 10/16/19 14:26 Freq: RTQ4 Status: Complete Protocol: Document 10/22/19 08:14 [facility] (Rec: 10/22/19 08:14 [facility] [id number]) Pulse Oximetry Assessment Equipment Usage Equipment Standby Continuous SpO2 Machine # 11 Intake & Output 10/28/19 10/29/19 10/30/19 06:59 06:59 06:59 Intake Total 619 520 50 Output Total 0 0 Balance 619 520 50 Weight 84.4 kg 75.6 kg Musculoskeletal exam: PRESENT: other - Right hip: Dressing clean/dry/intact no erythema or drainage. Moderate thigh swelling without change, intact pl antarflexion/dorsiflexion. No sensory deficits. No calf tenderness. Results Laboratory Results: 10/29/19 05:45 10/29/19 05:45 10/29/19 10/29/19 05:45 05:45 WBC 6.8 RBC 2.76 L Hgb 8.8 L Hct 26.3 L MCV 95 MCH 31.9 MCHC 33.5 RDW 20.7 H Plt Count 258 Sodium 130.9 L Potassium 4.4 Chloride 95 L Carbon Dioxide 31 H Anion Gap 5 BUN 42 H Creatinine 4.60 H Est GFR ( Amer) 11 L Glucose 77 Calcium 8.6 10/27/19 07:30 Sacrum - Decubitis Ulcer Gram Stain - Final 10/26/19 15:20 Blood Blood Culture (PCR) - Final Staphylococcus Species 10/14/19 10/14/19 14:24 14:24 Creatine Kinase 26 L Troponin I 0.014 Impressions: Hip/Pelvis X-Ray 10/14/19 12:09 IMPRESSION: Acute comminuted intertrochanteric right proximal femoral fracture with varus angulation Cervical Spine CT 10/14/19 12:33 IMPRESSION: CHRONIC DEGENERATIVE CHANGES. NO ACUTE FINDINGS. Hip X-Ray 10/16/19 00:00 IMPRESSION: IMAGE(S) OBTAINED DURING PROCEDURE. Head CT 10/23/19 00:00 IMPRESSION: CHRONIC CHANGES OF ATROPHY AND MICROVASCULAR ISCHEMIA. NO ACUTE PROCESS. EVIDENCE OF ACUTE STROKE: NO. Abdomen/Pelvis CT 10/26/19 00:00 IMPRESSION: 1. Small to moderate right pleural effusion with compressive atelectasis and/or consolidation at the right lung base. Superimposed pneumonia is not excluded. 2. Severe cardiomegaly with small pericardial effusion/pericardial thickening, not significantly changed. 3. New gastrostomy tube with retention balloon in the gastric lumen. Small a mount of pneumoperitoneum consistent with recent open gastrostomy. No focal drainable abscess. KUB X-Ray 10/28/19 00:00 IMPRESSION: NO RADIOGRAPHIC EVIDENCE FOR ACUTE ABDOMINAL DISEASE. Assessment & Plan - Diagnosis (1) Closed intertrochanteric fracture of right femur Qualifiers: Encounter type: initial encounter Fracture alignment: displaced Qualified Code(s): S72.141A - Displaced intertrochanteric fracture of right femur, initial encounter for closed fracture Is this a current diagnosis for this admission?: Yes Plan: Status post right hip IM nail 1. Physical therapy occupational therapy weightbearing as tolerated 2. Pain control 3. Discharge planning: Patient orthopedically stable for discharge. We will follow-up as an outpatient. - Time Time Spent with patient: Less than 15 minutes
[2019-10-29] MEDS: DOCUSATE SODIUM 100 MG/10 ML UDC GT SCH ×2 (11:49→17:44)
[2019-10-29] MEDS: POLYETHYLENE GLYCOL 3350 POWDER 17 GM/1 PACKET GT SCH (11:49)
--- NOTE | 2019-10-29 13:05 | PDOC PROGRESS REPORT ---
Subjective Progress Note for:: 10/29/19 Reason For Visit: Patient seen today on dialysis. She is undergoing dialysis without any issues. No specific complaints. Denies any chest pain shortness of breath fever or chills. Status post debridement of her sacral decubitus ulcer. Labs and medications were reviewed. Dialysis orders were reviewed with the treating dialysis nurse. Physical Exam Vital Signs: Temp Pulse Resp BP Pulse Ox 97.4 F 63 16 125/40 L 100 10/29/19 03:39 10/29/19 07:00 10/29/19 03:39 10/29/19 03:39 10/29/19 03:39 Pulse Oximeter Continuous Start: 10/16/19 14:26 Freq: RTQ4 Status: Complete Protocol: Document 10/22/19 08:14 [facility] (Rec: 10/22/19 08:14 [facility] [id number]) Pulse Oximetry Assessment Equipment Usage Equipment Standby Continuous SpO2 Machine # 11 Intake & Output 10/28/19 10/29/19 10/30/19 06:59 06:59 06:59 Intake Total 619 520 50 Output Total 0 0 0 Balance 619 520 50 Weight 84.4 kg 75.6 kg General appearance: PRESENT: no acute distress Respiratory exam: PRESENT: clear to auscultation debbie. ABSENT: crackles, decreased breath sounds Cardiovascular exam: PRESENT: +S1, +S2 GI/Abdominal exam: PRESENT: normal bowel sounds, soft. ABSENT: organomegaly, tenderness Extremities exam: ABSENT: pedal edema Neurological exam: PRESENT: alert, awake Skin exam: ABSENT: cyanosis, erythema, mottled Results Laboratory Results: 10/29/19 05:45 10/29/19 05:45 10/29/19 10/29/19 05:45 05:45 WBC 6.8 RBC 2.76 L Hgb 8.8 L Hct 26.3 L MCV 95 MCH 31.9 MCHC 33.5 RDW 20.7 H Plt Count 258 Sodium 130.9 L Potassium 4.4 Chloride 95 L Carbon Dioxide 31 H Anion Gap 5 BUN 42 H Creatinine 4.60 H Est GFR ( Amer) 11 L Glucose 77 Calcium 8.6 10/26/19 15:20 Blood Blood Culture (PCR) - Final Staphylococcus Species 10/27/19 07:30 Sacrum - Decubitis Ulcer Gram Stain - Final 10/14/19 10/14/19 14:24 14:24 Creatine Kinase 26 L Troponin I 0.014 Impressions: Hip/Pelvis X-Ray 10/14/19 12:09 IMPRESSION: Acute comminuted intertrochanteric right proximal femoral fracture with varus angulation Cervical Spine CT 10/14/19 12:33 IMPRESSION: CHRONIC DEGENERATIVE CHANGES. NO ACUTE FINDINGS. Hip X-Ray 10/16/19 00:00 IMPRESSION: IMAGE(S) OBTAINED DURING PROCEDURE. Head CT 10/23/19 00:00 IMPRESSION: CHRONIC CHANGES OF ATROPHY AND MICROVASCULAR ISCHEMIA. NO ACUTE PROCESS. EVIDENCE OF ACUTE STROKE: NO. Abdomen/Pelvis CT 10/26/19 00:00 IMPRESSION: 1. Small to moderate right pleural effusion with compressive atelectasis and/or consolidation at the right lung base. Superimposed pneumonia is not excluded. 2. Severe cardiomegaly with small pericardial effusion/pericardial thickening, not significantly changed. 3. New gastrostomy tube with retention balloon in the gastric lumen. Small amount of pneumoperitoneum consistent with recent open gastrostomy. No focal drainable abscess. KUB X-Ray 10/28/19 00:00 IMPRESSION: NO RADIOGRAPHIC EVIDENCE FOR ACUTE ABDOMINAL DISEASE. Assessment & Plan - Diagnosis (1) Closed intertrochanteric fracture of right femur Qualifiers: Encounter type: initial encounter Fracture alignment: displaced Qualified Code(s): S72.141A - Displaced intertrochanteric fracture of right femur, initial encounter for closed fracture Is this a current diagnosis for this admission?: Yes Plan: Status post right ORIF successfully and uneventfully. Orthopedics following. (2) End stage chronic kidney disease Plan: Patient currently undergoing dialysis without any issues. Vital signs are stable. Dialysis being supervised. Dialysis orders were reviewed with the treating dialysis nurse. Plan to remove a liter of fluid on ultrafiltration. (3) Diabetes mellitus type 2 in obese Is this a current diagnosis for this admission?: Yes Plan: As per primary care. (4) Anemia in chronic kidney disease Is this a current diagnosis for this admission?: Yes Plan: Stable. Adjust erythropoietin. (5) Hypertension Qualifiers: Hypertension type: essential hypertension Qualified Code(s): I10 - Essential (primary) hypertension Is this a current diagnosis for this admission?: Yes Plan: Stable (6) Leukocytosis Qualifiers: Leukocytosis type: unspecified Qualified Code(s): D72.829 - Elevated white blood cell count, unspecified Is this a current diagnosis for this admission?: Yes Plan: Resolved with sacral ulcer debridement and currently on antibiotics as per cultures. Dose medications as per ESRD . Gone ahead to adjust her dose of Unasyn currently.At time of discharge I would recommend that patient be discharged on IV cefepime which can be administered postdialysis. (7) Hypoglycemia Is this a current diagnosis for this admission?: Yes Plan: As per my recommendations made earlier. (8) Hyponatremia Plan: Currently improving and stable. Monitor.
--- NOTE | 2019-10-29 19:33 | PDOC PROGRESS REPORT ---
Subjective Progress Note for:: 10/29/19 Subjective:: Patient seen by the bedside, she was dialyzed today, the culture from the decubital ulcer is polymicrobial, she is presently on Unasyn responding to IV antibiotic, the white blood cell decrease from peak of 17,000, down to normal 6000. The tube feed was held over the weekend, this will be restarted, [facility] Reason For Visit: CLOSED INTERTROCHANTERIC FRACTURE R FEMUR,CHRONIC Physical Exam Vital Signs: Temp Pulse Resp BP Pulse Ox 97.4 F 83 16 133/52 H 79 L 10/29/19 15:43 10/29/19 15:43 10/29/19 03:39 10/29/19 15:43 10/29/19 15:43 Pulse Oximeter Continuous Start: 10/16/19 14:26 Freq: RTQ4 Status: Complete Protocol: Document 10/22/19 08:14 [facility] (Rec: 10/22/19 08:14 [facility] [id number]) Pulse Oximetry Assessment Equipment Usage Equipment Standby Continuous SpO2 Machine # 11 Intake & Output 10/28/19 10/29/19 10/30/19 06:59 06:59 06:59 Intake Total 619 520 270 Output Total 0 0 1000 Balance 619 520 -730 Weight 84.4 kg 75.6 kg General appearance: PRESENT: no acute distress Eye exam: PRESENT: PERRLA Respiratory exam: PRESENT: clear to auscultation debbie Cardiovascular exam: PRESENT: +S1, +S2 GI/Abdominal exam: PRESENT: soft Results Laboratory Results: 10/29/19 05:45 10/29/19 05:45 10/29/19 10/29/19 05:45 05:45 WBC 6.8 RBC 2.76 L Hgb 8.8 L Hct 26.3 L MCV 95 MCH 31.9 MCHC 33.5 RDW 20.7 H Plt Count 258 Sodium 130.9 L Potassium 4.4 Chloride 95 L Carbon Dioxide 31 H Anion Gap 5 BUN 42 H Creatinine 4.60 H Est GFR ( Amer) 11 L Glucose 77 Calcium 8.6 10/26/19 15:20 Blood Blood Culture (PCR) - Final Staphylococcus Species 10/27/19 07:30 Sacrum - Decubitis Ulcer Gram Stain - Final 10/14/19 10/14/19 14:24 14:24 Creatine Kinase 26 L Troponin I 0.014 Impressions: Hip/Pelvis X-Ray 10/14/19 12:09 IMPRESSION: Acute comminuted intertrochanteric right proximal femoral fracture with varus angulation Cervical Spine CT 10/14/19 12:33 IMPRESSION: CHRONIC DEGENERATIVE CHANGES. NO ACUTE FINDINGS. Hip X-Ray 10/16/19 00:00 IMPRESSION: IMAGE(S) OBTAINED DURING PROCEDURE. Head CT 10/23/19 00:00 IMPRESSION: CHRONIC CHANGES OF ATROPHY AND MICROVASCULAR ISCHEMIA. NO ACUTE PROCESS. EVIDENCE OF ACUTE STROKE: NO. Abdomen/Pelvis CT 10/26/19 00:00 IMPRESSION: 1. Small to moderate right pleural effusion with compressive atelectasis and/or consolidation at the right lung base. Superimposed pneumonia is not excluded. 2. Severe cardiomegaly with small pericardial effusion/pericardial thickening, not significantly changed. 3. New gastrostomy tube with retention balloon in the gastric lumen. Small amount of pneumoperitoneum consistent with recent open gastrostomy. No focal drainable abscess. KUB X-Ray 10/28/19 00:00 IMPRESSION: NO RADIOGRAPHIC EVIDENCE FOR ACUTE ABDOMINAL DISEASE. Assessment & Plan - Diagnosis (1) Displaced intertrochanteric fracture of right femur, initial encounter for closed fracture Is this a current diagnosis for this admission?: Yes (2) End stage renal disease Is this a current diagnosis for this admission?: Yes (3) Diabetes mellitus type 2 in obese Is this a current diagnosis for this admission?: Yes (4) Anemia of chronic disease Is this a current diagnosis for this admission?: Yes (5) Adult failure to thrive Is this a current diagnosis for this admission?: Yes (6) Hypoglycemia Is this a current diagnosis for this admission?: Yes (7) Aspiration pneumonia Qualifiers: Aspiration pneumonia type: unspecified Laterality: right Lung location: lower lobe of lung Qualified Code(s): J69.0 - Pneumonitis due to inhalation of food and vomit Is this a current diagnosis for this admission?: Yes (8) Sacral decubitus ulcer, stage III Is this a current diagnosis for this admission?: Yes Plan: She has polymicrobial infection of the sacral decubital ulcer, she will continue IV antibiotic - Time Time Spent with patient: 15-24 minutes
[2019-10-30] MEDS: INSULIN LISPRO 100 UNIT/ML 3 ML VIAL SUBCUT SCH ×4 (00:04→17:38)
[2019-10-30] MEDS: METOCLOPRAMIDE HCL INJ/PF 10 MG/2 ML SDV IV SCH ×5 (00:23→23:50)
[2019-10-30] MEDS ORDERED: TRAMADOL HCL 50 MG TABLET PEG ONE (02:00)
[2019-10-30] MEDS: LEVOTHYROXINE SODIUM 0.15 MG TABLET NG SCH (06:49)
[2019-10-30] MEDS: PANTOPRAZOLE SODIUM 40 MG PACKET.DR NG SCH (06:49)
[2019-10-30] MEDS: HEPARIN SOD (PORCINE) 5,000 UNIT/ML 1 ML VIAL SUBCUT SCH ×3 (06:49→21:34)
[2019-10-30 07:51] LABS: BLOOD UREA NITROGEN 28 mg/dL (7-20); CALCIUM 8.2 mg/dL (8.4-10.2); GLUCOSE 131 mg/dL (75-110); POTASSIUM 3.9 mmol/L (3.6-5.0)
[2019-10-30 07:56] LABS: CARBON DIOXIDE 32 mmol/L (22-30); CHLORIDE 98 mmol/L (98-107)
[2019-10-30 08:02] LABS: ANION GAP 2 (5-19)
[2019-10-30] MEDS: DOCUSATE SODIUM 100 MG/10 ML UDC GT SCH ×2 (09:06→17:14)
[2019-10-30] MEDS: POLYETHYLENE GLYCOL 3350 POWDER 17 GM/1 PACKET GT SCH (09:06)
[2019-10-30] MEDS: AMPICILLIN SODIUM/SULBACTAM NA 3 GM in NORMAL SALINE 100 ML IV SCH (09:47)
[2019-10-30] MEDS: TRAMADOL HCL 50 MG TABLET PEG PRN (17:37)
--- NOTE | 2019-10-30 18:26 | PDOC PROGRESS REPORT ---
Subjective Progress Note for:: 10/30/19 Subjective:: Patient seen by the bedside no new complaints hopefully discharge to [facility] tomorrow Reason For Visit: CLOSED INTERTROCHANTERIC FRACTURE R FEMUR,CHRONIC Physical Exam Vital Signs: Temp Pulse Resp BP Pulse Ox 97.5 F 64 16 137/55 H 98 10/30/19 12:27 10/30/19 14:00 10/30/19 12:27 10/30/19 12:27 10/30/19 07:48 Pulse Oximeter Continuous Start: 10/16/19 14:26 Freq: RTQ4 Status: Complete Protocol: Document 10/22/19 08:14 [facility] (Rec: 10/22/19 08:14 [facility] [id number]) Pulse Oximetry Assessment Equipment Usage Equipment Standby Continuous SpO2 Machine # 11 Intake & Output 10/29/19 10/30/19 10/31/19 06:59 06:59 06:59 Intake Total 520 639 655 Output Total 0 1000 Balance 520 -361 655 Weight 75.6 kg 82.5 kg General appearance: PRESENT: no acute distress Eye exam: PRESENT: PERRLA Cardiovascular exam: PRESENT: +S1 GI/Abdominal exam: PRESENT: soft Neurological exam: PRESENT: alert Results Laboratory Results: 10/29/19 05:45 10/30/19 06:55 10/30/19 06:55 Sodium 131.9 L Potassium 3.9 Chloride 98 Carbon Dioxide 32 H Anion Gap 2 L BUN 28 H Creatinine 3.04 H Est GFR ( Amer) 18 L Glucose 131 H Calcium 8.2 L 10/27/19 07:30 Sacrum - Decubitis Ulcer Gram Stain - Final 10/27/19 07:30 Sacrum - Decubitis Ulcer Wound Culture - Final Escherichia Coli Esbl Proteus Mirabilis Bacteroides Fragilis Group Clostridium Perfringens 10/26/19 15:20 Blood Blood Culture (PCR) - Final Staphylococcus Species 10/26/19 15:20 Blood Blood Culture - Final Staphylococcus Epidermidis 10/14/19 10/14/19 14:24 14:24 Creatine Kinase 26 L Troponin I 0.014 Impressions: Hip/Pelvis X-Ray 10/14/19 12:09 IMPRESSION: Acute comminuted intertrochanteric right proximal femoral fracture with varus angulation Cervical Spine CT 10/14/19 12:33 IMPRESSION: CHRONIC DEGENERATIVE CHANGES. NO ACUTE FINDINGS. Hip X-Ray 10/16/19 00:00 IMPRESSION: IMAGE(S) OBTAINED DURING PROCEDURE. Head CT 10/23/19 00:00 IMPRESSION: CHRONIC CHANGES OF ATROPHY AND MICROVASCULAR ISCHEMIA. NO ACUTE PROCESS. EVIDENCE OF ACUTE STROKE: NO. Abdomen/Pelvis CT 10/26/19 00:00 IMPRESSION: 1. Small to moderate right pleural effusion with compressive atelectasis and/or consolidation at the right lung base. Superimposed pneumonia is not excluded. 2. Severe cardiomegaly with small pericardial effusion/pericardial thickening, not significantly changed. 3. New gastrostomy tube with retention balloon in the gastric lumen. Small amount of pneumoperitoneum consistent with recent open gastrostomy. No focal drainable abscess. KUB X-Ray 10/28/19 00:00 IMPRESSION: NO RADIOGRAPHIC EVIDENCE FOR ACUTE ABDOMINAL DISEASE. Assessment & Plan - Diagnosis (1) Displaced intertrochanteric fracture of right femur, initial encounter for closed fracture Is this a current diagnosis for this admission?: Yes (2) End stage renal disease Is this a current diagnosis for this admission?: Yes (3) Diabetes mellitus type 2 in obese Is this a current diagnosis for this admission?: Yes (4) Anemia of chronic disease Is this a current diagnosis for this admission?: Yes (5) Adult failure to thrive Is this a current diagnosis for this admission?: Yes (6) Hypoglycemia Is this a current diagnosis for this admission?: Yes (7) Aspiration pneumonia Qualifiers: Aspiration pneumonia type: unspecified Laterality: right Lung location: lower lobe of lung Qualified Code(s): J69.0 - Pneumonitis due to inhalation of food and vomit Is this a current diagnosis for this admission?: Yes (8) Sacral decubitus ulcer, stage III Is this a current diagnosis for this admission?: Yes - Time Time Spent with patient: 15-24 minutes - Plan Summary Plan Summary: Continue present treatment
[2019-10-31] MEDS: INSULIN LISPRO 100 UNIT/ML 3 ML VIAL SUBCUT SCH ×4 (00:40→18:03)
[2019-10-31] MEDS ORDERED: EPOETIN ALFA-EPBX 10,000 UNIT in SYRINGE, DISPOSABLE, 1 EACH IV PRN (05:00)
[2019-10-31] MEDS: LEVOTHYROXINE SODIUM 0.15 MG TABLET NG SCH (05:23)
[2019-10-31] MEDS: HEPARIN SOD (PORCINE) 5,000 UNIT/ML 1 ML VIAL SUBCUT SCH ×2 (05:23→13:52)
[2019-10-31] MEDS: METOCLOPRAMIDE HCL INJ/PF 10 MG/2 ML SDV IV SCH ×3 (05:23→18:37)
[2019-10-31] MEDS: PANTOPRAZOLE SODIUM 40 MG PACKET.DR NG SCH (05:23)
[2019-10-31 06:20] LABS: HEMATOCRIT 25.1 % (36.0-47.0); HEMOGLOBIN 8.2 g/dL (12.0-15.5); MEAN CORPUSCULAR HEMOGLOBIN 31.7 pg (27.0-33.4); MEAN CORPUSCULAR HGB CONC 32.8 g/dL (32.0-36.0); MEAN CORPUSCULAR VOLUME 97 fl (80-97); PLATELET COUNT 262 10^3/uL (150-450); RED BLOOD COUNT 2.59 10^6/uL (3.72-5.28); RED CELL DISTRIBUTION WIDTH 21.1 % (11.5-14.0); WHITE BLOOD COUNT 7.9 10^3/uL (4.0-10.5)
[2019-10-31 06:36] LABS: BLOOD UREA NITROGEN 36 mg/dL (7-20); CALCIUM 8.5 mg/dL (8.4-10.2); CHLORIDE 96 mmol/L (98-107); GLUCOSE 147 mg/dL (75-110); POTASSIUM 3.7 mmol/L (3.6-5.0)
[2019-10-31 06:42] LABS: CARBON DIOXIDE 33 mmol/L (22-30)
[2019-10-31 06:46] LABS: ANION GAP 3 (5-19)
[2019-10-31] MEDS: TRAMADOL HCL 50 MG TABLET PEG PRN (08:35)
[2019-10-31] MEDS: DOCUSATE SODIUM 100 MG/10 ML UDC GT SCH ×2 (09:54→18:02)
[2019-10-31] MEDS: POLYETHYLENE GLYCOL 3350 POWDER 17 GM/1 PACKET GT SCH (09:54)
[2019-10-31] MEDS: AMPICILLIN SODIUM/SULBACTAM NA 3 GM in NORMAL SALINE 100 ML IV SCH (11:01)
--- NOTE | 2019-10-31 12:12 | PDOC PROGRESS REPORT ---
Subjective Progress Note for:: 10/31/19 Reason For Visit: Patient seen today on dialysis. She is undergoing dialysis without any issues but for the fact that she is confused and rather disoriented at times. However she is able to answer to questions directly when spoken loudly. She denies any history of chest pain or shortness of breath. However she complains of pain in her low back. She has a sacral decubitus ulcers and now microbiology shows that it is polymicrobial starting off with ESBL E. coli/Proteus/bacteroids. She is currently on Unasyn which is resistant to the ESBL. Dialysis orders were reviewed with the treating dialysis nurse. Physical Exam Vital Signs: Temp Pulse Resp BP Pulse Ox 97.8 F 78 19 155/58 H 100 10/31/19 04:21 10/31/19 07:00 10/31/19 04:21 10/31/19 04:21 10/31/19 04:58 Pulse Oximeter Continuous Start: 10/16/19 14:26 Freq: RTQ4 Status: Complete Protocol: Document 10/22/19 08:14 [facility] (Rec: 10/22/19 08:14 [facility] [id number]) Pulse Oximetry Assessment Equipment Usage Equipment Standby Continuous SpO2 Machine # 11 Intake & Output 10/30/19 10/31/19 11/01/19 06:59 06:59 06:59 Intake Total 639 655 Output Total 1000 Balance -361 655 Weight 82.5 kg 79.2 kg General appearance: PRESENT: no acute distress Respiratory exam: PRESENT: clear to auscultation debbie, decreased breath sounds. ABSENT: crackles Cardiovascular exam: PRESENT: +S1, +S2 GI/Abdominal exam: PRESENT: normal bowel sounds, soft. ABSENT: organomegaly, tenderness Extremities exam: ABSENT: pedal edema Neurological exam: PRESENT: altered, awake, oriented to person Psychiatric exam: PRESENT: anxious Results Laboratory Results: 10/31/19 06:05 10/31/19 06:05 10/31/19 10/31/19 06:05 06:05 WBC 7.9 RBC 2.59 L Hgb 8.2 L Hct 25.1 L MCV 97 MCH 31.7 MCHC 32.8 RDW 21.1 H Plt Count 262 Sodium 131.6 L Potassium 3.7 Chloride 96 L Carbon Dioxide 33 H Anion Gap 3 L BUN 36 H Creatinine 3.81 H Est GFR ( Amer) 14 L Glucose 147 H Calcium 8.5 10/27/19 07:30 Sacrum - Decubitis Ulcer Gram Stain - Final 10/27/19 07:30 Sacrum - Decubitis Ulcer Wound Culture - Final Escherichia Coli Esbl Proteus Mirabilis Bacteroides Fragilis Group Clostridium Perfringens 10/14/19 10/14/19 14:24 14:24 Creatine Kinase 26 L Troponin I 0.014 Impressions: Hip/Pelvis X-Ray 10/14/19 12:09 IMPRESSION: Acute comminuted intertrochanteric right proximal femoral fracture with varus angulation Cervical Spine CT 10/14/19 12:33 IMPRESSION: CHRONIC DEGENERATIVE CHANGES. NO ACUTE FINDINGS. Hip X-Ray 10/16/19 00:00 IMPRESSION: IMAGE(S) OBTAINED DURING PROCEDURE. Head CT 10/23/19 00:00 IMPRESSION: CHRONIC CHANGES OF ATROPHY AND MICROVASCULAR ISCHEMIA. NO ACUTE PROCESS. EVIDENCE OF ACUTE STROKE: NO. Abdomen/Pelvis CT 10/26/19 00:00 IMPRESSION: 1. Small to moderate right pleural effusion with compressive atelectasis and/or consolidation at the right lung base. Superimposed pneumonia is not excluded. 2. Severe cardiomegaly with small pericardial effusion/pericardial thickening, not significantly changed. 3. New gastrostomy tube with retention balloon in the gastric lumen. Small amount of pneumoperitoneum consistent with recent open gastrostomy. No focal drainable abscess. KUB X-Ray 10/28/19 00:00 IMPRESSION: NO RADIOGRAPHIC EVIDENCE FOR ACUTE ABDOMINAL DISEASE. Assessment & Plan - Diagnosis (1) Closed intertrochanteric fracture of right femur Qualifiers: Encounter type: initial encounter Fracture alignment: displaced Qualified Code(s): S72.141A - Displaced intertrochanteric fracture of right femur, initial encounter for closed fracture Is this a current diagnosis for this admission?: Yes Plan: Status post right ORIF successfully and uneventfully. Orthopedics following. (2) End stage chronic kidney disease Plan: Patient currently undergoing dialysis without any issues. Vital signs are stable. Patient has got altered mental status intermittently. This could be stemming from her polymicrobial sacral decubitus ulcers which needs appropriate antibiotics to be changed to. Dialysis being supervised. Dialysis orders were reviewed with the treating dialysis nurse. Plan to remove 500- 1000 cc of fluid on ultrafiltration. (3) Sacral decubitus ulcer, stage III Is this a current diagnosis for this admission?: Yes Plan: Polymicrobial including ESBL E. coli/Proteus/bacteroids. DC Unasyn. Start Invanz 500 mg daily. (4) Diabetes mellitus type 2 in obese Is this a current diagnosis for this admission?: Yes Plan: As per primary care. (5) Anemia in chronic kidney disease Is this a current diagnosis for this admission?: Yes Plan: Stable. Adjust erythropoietin. (6) Hypertension Qualifiers: Hypertension type: essential hypertension Qualified Code(s): I10 - Essential (primary) hypertension Is this a current diagnosis for this admission?: Yes Plan: Stable (7) Leukocytosis Qualifiers: Leukocytosis type: unspecified Qualified Code(s): D72.829 - Elevated white blood cell count, unspecified Is this a current diagnosis for this admission?: Yes Plan: Resolved with sacral ulcer debridement and currently on Unasyn. However review of microbiology shows that she is growing polymicrobial including ESBL E. coli/Proteus/bacteroids. Will DC Unasyn. Start on Invanz 500 mg daily. . (8) Hypoglycemia Is this a current diagnosis for this admission?: Yes Plan: As per my recommendations made earlier. (9) Hyponatremia Plan: Currently improving and stable. Monitor.
[2019-10-31] MEDS ORDERED: ERTAPENEM SODIUM 0.5 GM in NORMAL SALINE 50 ML IV SCH (12:30)
[2019-10-31] MEDS: DEXTROSE 50%-WATER 25 GM/50 ML DISP.SYRIN IV PRN (13:05)
[2019-10-31] MEDS ORDERED: ERTAPENEM SODIUM 0.5 GM in NORMAL SALINE 50 ML IV ONE (13:30)
--- NOTE | 2019-10-31 13:47 | PDOC TRANSFER SUMMARY ---
Impression - Admit/DC Date/PCP Admission Date/Primary Care Provider: 10/14/19 16:53 JOSE MANUEL MIX MD Discharge Date: 10/31/19 - Discharge Diagnosis (1) Displaced intertrochanteric fracture of right femur, initial encounter for closed fracture Is this a current diagnosis for this admission?: Yes (2) End stage renal disease Is this a current diagnosis for this admission?: Yes (3) Diabetes mellitus type 2 in obese Is this a current diagnosis for this admission?: Yes (4) Anemia of chronic disease Is this a current diagnosis for this admission?: Yes (5) Adult failure to thrive Is this a current diagnosis for this admission?: Yes (6) Hypoglycemia Is this a current diagnosis for this admission?: Yes (7) Sacral decubitus ulcer, stage III Is this a current diagnosis for this admission?: Yes (8) Polymicrobial bacterial infection Is this a current diagnosis for this admission?: Yes (9) ESBL (extended spectrum beta-lactamase) producing bacteria infection Is this a current diagnosis for this admission?: Yes (10) Aspiration pneumonia Is this a current diagnosis for this admission?: Yes - Additional Information Resuscitation Status: Do Not Resuscitate Discharge Diet: Tube Feeding (Comments) Referrals: JOSEM ANUEL MIX MD [Primary Care Provider] - Follow up as needed Home Medications: Levothyroxine Sodium 150 mcg PO Q6AM 12/22/18 Dextrose 50%-Water [Dextrose Inj 50% Syringe (25 gm/50 ml)] 12.5 gm IV PRN PRN disp.syrin 10/25/19 Dextrose 50%-Water [Dextrose Inj 50% Syringe (25 gm/50 ml)] 25 gm IV PRN PRN disp.syrin 10/25/19 Dextrose [Glutose 40% Gel 15 gm Tube] 30 gm PO PRN PRN tube 10/25/19 Glucagon,Human Recombinant [Glucagen Inj 1 mg Vial] 1 mg SUBCUT PRN PRN vial 10/25/19 Levothyroxine Sodium [Synthroid 0.15 mg Tablet] 0.15 mg NG Q6AM tablet 10/25/19 Pantoprazole Sodium [Protonix [address] Packet] 40 mg NG Q6AM granpkt. 10/25/19 History of Present Illiness History of Present Illness: LOVELY ESPAÑA is a 78 year old female patient who presented to the ED vi EMS following a mechanical fall at home. Patient reported that she fell in the process of getting into her bath at home. She denied any preceding chest pain, palpitation or irregular heart beat. She was unable to get off the floor due to associated right hip pain. She was on the floor for about three hours until her daughter return from work and was able to activate EMS. She denied loss of consciousness or seizure activities. She denied any nausea but reported episode of vomiting after attempt at eating earlier today. No abdominal pain. Patient reported ongoing mobility at home that might have contributed to her fall due to inability to use her walker and wheelchair beyond her bathroom door. Her initial ED evaluation was significant for right intertrochantic femoral fracture with osteoporosis on her X ray. She was advised hospitalization for further eval uation and surgical intervention. Her morbidities are as listed below. Hospital Course Hospital Course: Patient was admitted for the management of fracture of the right hip joint, she was seen in consultation by the orthopedic she underwent open reduction and internal fixation of the joint without complication. Hospital course was complicated with persistent hypoglycemia, she is a diabetic, she is not on any oral hypoglycemic agent, intake was very poor it was felt that the poor intake is partly contributing to the hypoglycemia. Patient's daughter also said that intake has been diminished even before this admission, she has end-stage renal disease on maintenance hemodialysis she was seen by nephrology she had hemodialysis session in the hospital during this admission.The persistent hypoglycemia was manage initially with 5% dextrose intravenously but this obviously is not enough to achieve adequate daily caloric requirement because of the extremely poor intake ,family was agreeable to PEG tube placement. Consultation was obtained from surgery for PEG tube placement but this was converted to open gastrectomy on the day she was supposed to have a PEG tube placement for technico-medical reasons she had leukocytosis when she was about to be transferred to penit[facility]iary ultimately she was found to have aspiration pneumonia, stage III sacral decubital ulcer, consultation was obtained from surgery she underwent excisional debridement on 10/27/2019. She was empirically treated with IV antibiotic Unasyn to cover potential pathogens for aspiration pneumonia. The culture from the decubital ulcer in the sacrum was polymicrobial, it grew Proteus mirabilis, Bacteroides, E. coli, the E. coli was ESBL because of ESBL E. coli the antibiotic was changed to ertapenem to continue for 5 more days. She is stable enough to be discharged to penitentiary for continuity of care including rehabilitation, physical therapy Physical Exam Vital Signs: Temp Pulse Resp BP Pulse Ox 97.8 F 78 19 155/58 H 100 10/31/19 04:21 10/31/19 07:00 10/31/19 04:21 10/31/19 04:21 10/31/19 04:58 Pulse Oximeter Continuous Start: 10/16/19 14:26 Freq: RTQ4 Status: Complete Protocol: Document 10/22/19 08:14 [facility] (Rec: 10/22/19 08:14 [facility] [email or web address]) Pulse Oximetry Assessment Equipment Usage Equipment Standby Continuous SpO2 Machine # 11 Intake & Output 10/30/19 10/31/19 11/01/19 06:59 06:59 06:59 Intake Total 207 760 6409 Output Total 1000 1950 Balance -361 655 -850 Weight 82.5 kg 79.2 kg General appearance: PRESENT: no acute distress Eye exam: PRESENT: PERRLA Respiratory exam: PRESENT: clear to auscultation debbie Cardiovascular exam: PRESENT: +S1, +S2 GI/Abdominal exam: PRESENT: soft Neurological exam: PRESENT: alert Results Laboratory Results: WBC 7.9 10^3/uL (4.0-10.5) 10/31/19 06:05 RBC 2.59 10^6/uL (3.72-5.28) L 10/31/19 06:05 Hgb 8.2 g/dL (12.0-15.5) L 10/31/19 06:05 Hct 25.1 % (36.0-47.0) L 10/31/19 06:05 MCV 97 fl (80-97) 10/31/19 06:05 MCH 31.7 pg (27.0-33.4) 10/31/19 06:05 MCHC 32.8 g/dL (32.0-36.0) 10/31/19 06:05 RDW 21.1 % (11.5-14.0) H 10/31/19 06:05 Plt Count 262 10^3/uL (150-450) 10/31/19 06:05 Lymph % (Auto) 5.9 % (13-45) L 10/28/19 04:55 [place] % (Auto) 5.4 % (3-13) 10/28/19 04:55 Eos % (Auto) 0.8 % (0-6) 10/28/19 04:55 Baso % (Auto) 0.3 % (0-2) 10/28/19 04:55 Absolute Neuts (auto) 8.9 10^3/uL (1.7-8.2) H 10/28/19 04:55 Absolute Lymphs (auto) 0.6 10^3/uL (0.5-4.7) 10/28/19 04:55 Absolute Monos (auto) 0.6 10^3/uL (0.1-1.4) 10/28/19 04:55 Absolute Eos (auto) 0.1 10^3/uL (0.0-0.6) 10/28/19 04:55 Absolute Basos (auto) 0.0 10^3/uL (0.0-0.2) 10/28/19 04:55 Total Counted 100 10/26/19 07:05 Seg Neutrophils % 87.6 % (42-78) H 10/28/19 04:55 Seg Neuts % (Manual) 95 % (42-78) H 10/26/19 07:05 Lymphocytes % (Manual) 3 % (13-45) L 10/26/19 07:05 Monocytes % (Manual) 1 % (3-13) L 10/26/19 07:05 Eosinophils % (Manual) 1 % (0-6) 10/26/19 07:05 Basophils % (Manual) 0 % (0-2) 10/26/19 07:05 Abs Neuts (Manual) 16.9 10^3/uL (1.7-8.2) H 10/26/19 07:05 Abs Lymphs (Manual) 0.5 10^3/uL (0.5-4.7) 10/26/19 07:05 Abs Monocytes (Manual) 0.2 10^3/uL (0.1-1.4) 10/26/19 07:05 Absolute Eos (Manual) 0.2 10^3/uL (0.0-0.6) 10/26/19 07:05 Abs Basophils (Manual) 0.0 10^3/uL (0.0-0.2) 10/26/19 07:05 Platelet Estimate Cancelled 10/26/19 07:05 Platelet Comment ADEQUATE 10/26/19 07:05 Polychromasia SLIGHT 10/26/19 07:05 Poikilocytosis SLIGHT 10/26/19 07:05 Anisocytosis 2+ 10/26/19 07:05 Target Cells SLIGHT 10/26/19 07:05 Ovalocytes SLIGHT 10/26/19 07:05 PT 14.0 SEC (11.4-15.4) 10/14/19 14:24 INR 1.08 10/14/19 14:24 APTT 28.7 SEC (23.5-35.8) 10/14/19 14:24 Sodium 131.6 mmol/L (137-145) L 10/31/19 06:05 Potassium 3.7 mmol/L (3.6-5.0) 10/31/19 06:05 Chloride 96 mmol/L (98-107) L 10/31/19 06:05 Carbon Dioxide 33 mmol/L (22-30) H 10/31/19 06:05 Anion Gap 3 (5-19) L 10/31/19 06:05 BUN 36 mg/dL (7-20) H 10/31/19 06:05 Creatinine 3.81 mg/dL (0.52-1.25) H 10/31/19 06:05 Est GFR ( Amer) 14 (>60) L 10/31/19 06:05 Est GFR (MDRD) Non-Af 11 (>60) L 10/31/19 06:05 Glucose 147 mg/dL (75-110) H 10/31/19 06:05 POC Glucose 135 mg/dL (70-110) H 10/31/19 13:27 Lactic Acid 1.6 mmol/L (0.7-2.1) 10/14/19 14:24 Calcium 8.5 mg/dL (8.4-10.2) 10/31/19 06:05 Phosphorus 2.5 mg/dL (2.5-4.5) 10/26/19 07:05 Total Bilirubin 0.5 mg/dL (0.2-1.3) 10/26/19 07:05 Direct Bilirubin 0.1 mg/dL (0.0-0.4) 10/26/19 07:05 Neonat Total Bilirubin Not Reportable 10/26/19 07:05 Neonat Direct Bilirubin Not Reportable 10/26/19 07:05 Neonat Indirect Bili Not Reportable 10/26/19 07:05 AST 17 U/L (14-36) 10/26/19 07:05 ALT < 4 U/L (<35) 10/26/19 07:05 Alkaline Phosphatase 121 U/L (38-126) 10/26/19 07:05 Ammonia < 8.7 umol/L (9-33) L 10/26/19 08:06 Creatine Kinase 26 U/L (30-135) L 10/14/19 14:24 Troponin I 0.014 ng/mL 10/14/19 14:24 Total Protein 4.3 g/dL (6.3-8.2) L 10/26/19 07:05 Albumin 1.7 g/dL (3.5-5.0) L 10/26/19 07:05 Lipase 62.0 U/L (23-300) 10/14/19 14:24 COVID-19 Source NASOPHARYNGEAL 10/27/19 15:30 COVID-19 (MONO) NOT DETECTED 10/27/19 15:30 Slides for Path Review Cancelled 10/26/19 07:05 Blood Type O POSITIVE 10/18/19 15:36 Antibody Screen NEGATIVE 10/18/19 15:36 Crossmatch See Detail 10/18/19 15:36 10/14/19 14:24 Troponin I 0.014 Impressions: Hip/Pelvis X-Ray 10/14/19 12:09 IMPRESSION: Acute comminuted intertrochanteric right proximal femoral fracture with varus angulation Chest X-Ray 10/14/19 12:30 IMPRESSION: Stable cardiomegaly Trace right pleural fluid No gross acute infiltrates Head CT 10/14/19 12:32 IMPRESSION: No significant interval change. Mild chronic small vessel ischemic change and mild cerebral and cerebellar atrophy, stable. No acute intracranial hemorrhage, mass, or evidence of acute territorial infarct. EVIDENCE OF ACUTE STROKE: NO. Cervical Spine CT 10/14/19 12:33 IMPRESSION: CHRONIC DEGENERATIVE CHANGES. NO ACUTE FINDINGS. Abdomen/Pelvis CT 10/14/19 12:37 IMPRESSION: 1. Acute impacted intertrochanteric fracture right proximal femur. 2. Left lower lobe consolidation and small left pleural effusion. Finding may represent infectious/ inflammatory process. 3. Severe cardiomegaly with moderate pericardial effusion. 4. Colonic diverticulosis without evidence of diverticulitis. Hip X-Ray 10/16/19 00:00 IMPRESSION: IMAGE(S) OBTAINED DURING PROCEDURE. Chest X-Ray 10/18/19 00:00 IMPRESSION: NO ACUTE RADIOGRAPHIC FINDING IN THE CHEST. KUB X-Ray 10/21/19 00:00 IMPRESSION: NO RADIOGRAPHIC EVIDENCE FOR ACUTE ABDOMINAL DISEASE. Left pleural effusion. Chest X-Ray 10/23/19 00:00 IMPRESSION: Persistent left pleural effusion with probable underlying left lower lobe atelectasis or pneumonia. No other significant interval change. Head CT 10/23/19 00:00 IMPRESSION: CHRONIC CHANGES OF ATROPHY AND MICROVASCULAR ISCHEMIA. NO ACUTE PROCESS. EVIDENCE OF ACUTE STROKE: NO. Abdomen/Pelvis CT 10/26/19 00:00 IMPRESSION: 1. Small to moderate right pleural effusion with compressive atelectasis and/or consolidation at the right lung base. Superimposed pneumonia is not excluded. 2. Severe cardiomegaly with small pericardial effusion/pericardial thickening, not significantly changed. 3. New gastrostomy tube with retention balloon in the gastric lumen. Small amount of pneumoperitoneum consistent with recent open gastrostomy. No focal drainable abscess. Chest X-Ray 10/26/19 00:00 IMPRESSION: Increased dense opacity in the inferior right hemithorax that could represent a combination of pleural fluid, atelectasis and/or pneumonia. The similar opacity on the contralateral side is unchanged. KUB X-Ray 10/28/19 00:00 IMPRESSION: NO RADIOGRAPHIC EVIDENCE FOR ACUTE ABDOMINAL DISEASE. Stroke Is this a Stroke Patient?: No Acute Heart Failure - Is this a Heart Failure Patient?: No
[2019-10-31 19:22] VITALS: BP 135/48
== END 2019-10-31 19:25 | DRG 463 ==
LOC: ER 12:06 → EH 16:53 → 3W 18:23
PROVIDERS: ADMIT Internal Medicine; ATTEND Internal Medicine
PROC: 0QS636Z Reposition Right Upper Femur with Intramedullary Internal Fixation Device, Percutaneous Approach (ICD-10-PCS; 2019-10-16)
PROC: 5A1D70Z Performance of Urinary Filtration, Intermittent, Less than 6 Hours Per Day (ICD-10-PCS; 2019-10-16)
PROC: 30233N1 Transfusion of Nonautologous Red Blood Cells into Peripheral Vein, Percutaneous Approach (ICD-10-PCS; 2019-10-18)
PROC: 06HY33Z Insertion of Infusion Device into Lower Vein, Percutaneous Approach (ICD-10-PCS; 2019-10-21)
PROC: 0DH60UZ Insertion of Feeding Device into Stomach, Open Approach (ICD-10-PCS; 2019-10-23)
PROC: 0JB70ZZ Excision of Back Subcutaneous Tissue and Fascia, Open Approach (ICD-10-PCS; principal; 2019-10-27)
DX: M80.051A Age-related osteoporosis with current pathological fracture, right femur, initial encounter for fracture (principal); N18.6 End stage renal disease; L89.153 Pressure ulcer of sacral region, stage 3; J69.0 Pneumonitis due to inhalation of food and vomit; I13.2 Hypertensive heart and chronic kidney disease with heart failure and with stage 5 chronic kidney disease, or end stage renal disease; Z16.12 Extended spectrum beta lactamase (ESBL) resistance; I50.42 Chronic combined systolic (congestive) and diastolic (congestive) heart failure; E11.52 Type 2 diabetes mellitus with diabetic peripheral angiopathy with gangrene; I96 Gangrene, not elsewhere classified; Y93.E1 Activity, personal bathing and showering; Y92.002 Bathroom of unspecified non-institutional (private) residence as the place of occurrence of the external cause; E11.22 Type 2 diabetes mellitus with diabetic chronic kidney disease; E11.649 Type 2 diabetes mellitus with hypoglycemia without coma; D63.1 Anemia in chronic kidney disease; E03.9 Hypothyroidism, unspecified; E78.5 Hyperlipidemia, unspecified; Z20.828 Contact with and (suspected) exposure to other viral communicable diseases; R62.7 Adult failure to thrive; Z66 Do not resuscitate; I25.10 Atherosclerotic heart disease of native coronary artery without angina pectoris; E21.3 Hyperparathyroidism, unspecified; B96.20 Unspecified Escherichia coli [E. coli] as the cause of diseases classified elsewhere; B96.4 Proteus (mirabilis) (morganii) as the cause of diseases classified elsewhere; B96.6 Bacteroides fragilis [B. fragilis] as the cause of diseases classified elsewhere; E11.622 Type 2 diabetes mellitus with other skin ulcer; F03.90 Unspecified dementia, unspecified severity, without behavioral disturbance, psychotic disturbance, mood disturbance, and anxiety; W01.0XXA Fall on same level from slipping, tripping and stumbling without subsequent striking against object, initial encounter; I25.2 Old myocardial infarction; Z99.2 Dependence on renal dialysis; Z11.59 Encounter for screening for other viral diseases; Z79.899 Other long term (current) drug therapy; Z79.82 Long term (current) use of aspirin; Z95.5 Presence of coronary angioplasty implant and graft; Z82.49 Family history of ischemic heart disease and other diseases of the circulatory system; Z84.1 Family history of disorders of kidney and ureter; Z91.048 Other nonmedicinal substance allergy status; Z53.39 Other specified procedure converted to open procedure; Z86.73 Personal history of transient ischemic attack (TIA), and cerebral infarction without residual deficits; L89.152 Pressure ulcer of sacral region, stage 2
CPT/HCPCS: 00790; 01230; 36415; 36430; 70450; 71045; 72125; 74018; 74176; 80048; 80053; 82140; 82550; 82962; 83605; 83690; 84100; 84132; 84484; 85025; 85027; 85610; 85730; 86850; 86900; 86901; 86920; 87040; 87070; 87075; 87077; 87150; 87186; 87205; 87635; 93005; 93010; 94762; 96374; 96375; 99285; C1713; C1751; J0295; J0330; J0690; J0696; J1335; J1644; J2250; J2270; J2370; J2405; J2704; J2765; J3010; J3490; J7050; P9016; Q5105

== ENCOUNTER 2019-11-01 12:18 | Inpatient (IN) | payer MEDICARE ==
--- NOTE | 2019-11-01 12:57 | ER Document Report ---
ED General - General Stated Complaint: WEAKNESS TRAVEL OUTSIDE OF THE [place] IN LAST 30 DAYS: No - HPI Notes: 78-year-old female with a history of end-stage renal disease, hypoglycemia presents to the emergency room via EMS from [facility] due to weakness. Patient was discharged from [facility] yesterday and was sent to [facility] rehab for physical therapy. Patient did have a right hip fracture status post ORIF on 10/16/19. Patient while admitted had complication with persistent hypoglycemia and failure to thrive. A PEG tube was placed on 414 to improve her nutritional status. Prior to discharge yesterday, patient grew multi-microbial organisms in her decubitus ulcer that was cultured and she supposed to be getting meropenem IV, however the nursing staff at [facility] are unwilling to administer this medication through the left femoral triple-lumen. Patient has not been receiving her antibiotics as well as not really getting any tube feedings due to lack of clarity in the orders per nursing staff at [facility]. Patient was also diagnosed with pneumonia right greater than left and there is a concern that the patient is not receiving the antibiotics patient has been complaining of weakness. Denies any chest pain shortness of breath nausea vomiting diarrhea, denies any fevers or chills. Patient is able to answer questions however she is a poor historian with intermittent confusion however it is hard to discern whether ths is hearing impairment or if she is actually confused. - Related Data Allergies/Adverse Reactions: adhesive tape Allergy (Intermediate, Verified 10/14/19 12:23) Generalized rash Past Medical History - General Information source: Patient - Social History Smoking Status: Unknown if Ever Smoked Family History: CAD, Hypertension, Other - Kidney disease - Past Medical History Cardiac Medical History: Reports: Hx Coronary Artery Disease - HIGH CHOL, Hx Heart Attack - 2016; POSSIBLE CARDIAC STENT PLACEMENT "TO KEEP THE VALVE OPEN", Hx Hypercholesterolemia, Hx Hypertension - HX. OF, CURRENTLY OFF HER HTN MEDS DUE TO LOW BP Pulmonary Medical History: Reports: Hx Pneumonia - NOVEMBER 2017 Denies: Hx Asthma, Hx Bronchitis, Hx COPD, Hx Tuberculosis Neurological Medical History: Reports: Hx Cerebrovascular Accident - JUNE 2010, DENIES DEFICITS. Denies: Hx Seizures Endocrine Medical History: Reports: Hx Diabetes Mellitus Type 2, Hx Hypothyroidism Renal/ Medical History: Reports: Hx End Stage Renal Disease - on hemodialysis on Tuesday, Tuesday, Tuesday schedule., Hx Peritoneal Dialysis Musculoskeletal Medical History: Reports Hx Arthritis Past Surgical History: Reports: Hx Cardiac Catheterization, Hx Cholecystectomy. Denies: Hx Pacemaker - Immunizations Hx Diphtheria, Pertussis, Tetanus Vaccination: Yes - PATIENT UNSURE Hx Pneumococcal Vaccination: 04/19/12 Review of Systems - Review of Systems Constitutional: See HPI EENT: No symptoms reported Cardiovascular: No symptoms reported Respiratory: See HPI Gastrointestinal: No symptoms reported Genitourinary: No symptoms reported Female Genitourinary: No symptoms reported Musculoskeletal: No symptoms reported Skin: See HPI Hematologic/Lymphatic: No symptoms reported Neurological/Psychological: No symptoms reported Physical Exam - Vital signs Vitals: Resp 17 11/01/19 12:25 - Notes Notes: PHYSICAL EXAMINATION: reviewed vital signs by RN GENERAL: Chronically ill, malnourished and in no acute distress. HEAD: Atraumatic, normocephalic. EYES: Pupils equal round and reactive to light, extraocular movements intact, conjunctiva are normal. ENT: Nares patent, oropharynx clear without exudates. Moist mucous membranes. NECK: Normal range of motion, supple without lymphadenopathy LUNGS: Breath sounds clear to auscultation bilaterally and equal. No wheezes rales or rhonchi. HEART: Regular rate and rhythm without murmurs ABDOMEN: Soft, nontender, nondistended abdomen. No guarding, no rebound. No masses appreciated. Musculoskeletal: Normal range of motion, no pitting or edema. No cyanosis. NEUROLOGICAL: Cranial nerves grossly intact. Normal speech, normal gait. Normal sensory, motor exams PSYCH: Normal mood, normal affect. SKIN: Warm, Dry, normal turgor, no rashes or lesions noted. Course - Re-evaluation Re-evalutation: 11/01/19 14:34 Afebrile, vital stable no distress. Nurses notes reviewed. Patient with much encouragement able to state the year, the day but was unsure of the month. Patient is very hard of hearing. CBC shows chronic anemia, CMP slight hyponatremia however this is been the trend with multiple repeat CMP. Troponin is slightly elevated. Troponin 0 0.021, creatinine 3.46 and BUN 26. EKG negative for acute STEMI, though slightly different from Malorie EKG. Dr. aguilar, ER physician, requested repeat EKG in 20 minutes to see if there are any changes, repeat EKG negative for STEMI no acute changes from first EKG, will repeat troponin in 4 hours. Patient will continue to be monitored and on cardiac monitoring. troponin likely elevated with direct correlation of creatinine. Due to AMS, along with delay in IV abx, consulted with Dr. Adame at 1345, will accept patient to medical floor for medical management of of polymicrobial infections, weakness, ams and possible tunnel picc insertion tomorrow if needed. [phone]-Dr. Mendez, central stores attendant, contacted to be made aware the patient is being admitted to the hospital and patient is due for dialysis tomorrow. - Vital Signs Vital signs: Temp Pulse Resp BP Pulse Ox 98 F 15 155/49 H 96 11/01/19 12:54 11/01/19 14:01 11/01/19 14:01 11/01/19 13:01 - Laboratory Result Diagrams: 11/01/19 12:31 11/01/19 12:31 Laboratory results interpreted by me: 11/01/19 11/01/19 12:31 12:31 WBC 11.2 H RBC 2.70 L Hgb 8.5 L Hct 26.5 L MCV 98 H RDW 21.5 H Lymph % (Auto) 6.1 L Absolute Neuts (auto) 9.9 H Seg Neutrophils % 88.3 H Sodium 132.1 L Chloride 95 L Carbon Dioxide 34 H Anion Gap 3 L BUN 26 H Creatinine 3.46 H Est GFR ( Amer) 15 L Est GFR (MDRD) Non-Af 13 L Glucose 117 H Alkaline Phosphatase 129 H Total Protein 5.0 L Albumin 2.0 L Discharge - Discharge Clinical Impression: Weakness, Polymicrobial bacterial infection, Pneumonia Condition: Stable Disposition: ADMITTED INPATIENT Admitting Provider: Wendi Unit Admitted: Medical Floor
[2019-11-01 13:06] LABS: ABSOLUTE LYMPHOCYTES (AUTO) 0.7 10^3/uL (0.5-4.7); ABSOLUTE MONOCYTES (AUTO) 0.6 10^3/uL (0.1-1.4); ABSOLUTE NEUT (AUTO) 9.9 10^3/uL (1.7-8.2); BASOPHILS % (AUTO) 0.4 % (0-2); EOSINOPHILS % (AUTO) 0.2 % (0-6); HEMATOCRIT 26.5 % (36.0-47.0); HEMOGLOBIN 8.5 g/dL (12.0-15.5); LYMPHOCYTES % (AUTO) 6.1 % (13-45); MEAN CORPUSCULAR HEMOGLOBIN 31.5 pg (27.0-33.4); MEAN CORPUSCULAR HGB CONC 32.2 g/dL (32.0-36.0); MEAN CORPUSCULAR VOLUME 98 fl (80-97); PLATELET COUNT 288 10^3/uL (150-450); RED CELL DISTRIBUTION WIDTH 21.5 % (11.5-14.0); SEGMENTED NEUTROPHILS % (AUTO) 88.3 % (42-78); TOTAL CELLS COUNTED % (AUTO) 100 %; WHITE BLOOD COUNT 11.2 10^3/uL (4.0-10.5)
[2019-11-01 13:10] LABS: INTERNATIONAL RATION (INR) 1.01; PROTHROMBIN TIME 13.3 SEC (11.4-15.4)
[2019-11-01 13:19] LABS: ALKALINE PHOSPHATASE 129 U/L (38-126); ASPARTATE AMINO TRANSFERASE 18 U/L (14-36); BILIRUBIN,DIRECT 0.3 mg/dL (0.0-0.4); BILIRUBIN,TOTAL 0.6 mg/dL (0.2-1.3); BLOOD UREA NITROGEN 26 mg/dL (7-20); CALCIUM 8.7 mg/dL (8.4-10.2); CARBON DIOXIDE 34 mmol/L (22-30); CHLORIDE 95 mmol/L (98-107); GLUCOSE 117 mg/dL (75-110); POTASSIUM 3.8 mmol/L (3.6-5.0)
[2019-11-01 13:26] LABS: ANION GAP 3 (5-19)
[2019-11-01] MEDS ORDERED: MEROPENEM 1 GM VIAL IV ONE (13:41)
--- NOTE | 2019-11-01 13:45 | RADIOLOGY REPORT (SQ) ---
EXAM DESCRIPTION: CHEST SINGLE VIEW IMAGES COMPLETED DATE/TIME: 11/01/2019 1:36 pm REASON FOR STUDY: ams COMPARISON: 10/28/2019 NUMBER OF VIEWS: One view. TECHNIQUE: Single frontal radiographic view of the chest acquired. LIMITATIONS: None. FINDINGS: LUNGS AND PLEURA: Small pleural effusions bilaterally. No infiltrate. MEDIASTINUM AND HILAR STRUCTURES: Stable. HEART AND VASCULATURE: Cardiac enlargement. Vascular congestion. BONES: No acute findings. HARDWARE: None in the chest. OTHER: No other significant finding. IMPRESSION: CARDIAC ENLARGEMENT. VASCULAR CONGESTION. TECHNICAL DOCUMENTATION: JOB ID: [id number] 2010 [employer]- All Rights Reserved Reading location - IP/workstation name: [email or web address]
--- NOTE | 2019-11-01 20:15 | PDOC H&P ---
History of Present Illness Admission Date/PCP: 11/01/19 14:10 JOSE MANUEL MIX MD History of Present Illness: LOVELY ESPAÑA is a 78 year old female.She was discharged yesterday to the nursing normal for physical therapy and rehabilitation, she was discharged on intravenous ertapenem because of ESBL E. coli wound infection. She has a central line in the femoral vein, the senior living sent patient back to the hospital because it is not the policy to accept patient with femoral central line. She is a patient on dialysis, PICC line is contraindicated in a patient on dialysis because of the potential to utilize the peripheral veins for dialysis, patient is back in the hospital she has dementia, hard of hearing. legally blind she will stay in the hospital for the completion of IV antibiotic before she be transferred back to the [facility]. The last time she was in the hospital she had a PEG tube in place. She is also a DNR status this to be maintained on this admission as well .I saw patient by the bedside there is no new complaints Past Medical History Cardiac Medical History: Reports: Coronary Artery Disease - HIGH CHOL, Myocardial Infarction - 2017; POSSIBLE CARDIAC STENT PLACEMENT "TO KEEP THE VALVE OPEN", Hyperlipidema, Hypertension - HX. OF, CURRENTLY OFF HER HTN MEDS DUE TO LOW BP Pulmonary Medical History: Reports: Pneumonia - NOVEMBER 2017 Neurological Medical History: Denies: Seizures Endocrine Medical History: Reports: Diabetes Mellitus Type 2, Hypothyroidism Renal/ Medical History: Reports: End Stage Renal Disease - on hemodialysis on Tuesday, Tuesday, Tuesday schedule. Musculoskeltal Medical History: Reports: Arthritis Hematology: Denies: Anemia Past Surgical History Past Surgical History: Reports: Cardiac Catheterization, Cholecystectomy Social History Smoking Status: Unknown if Ever Smoked Electronic Cigarette use?: No Frequency of Alcohol Use: None Hx Recreational Drug Use: No Hx Prescription Drug Abuse: No Family History Family History: CAD, Hypertension, Other - Kidney disease Parental Family History Reviewed: Yes Children Family History Reviewed: Yes Sibling(s) Family History Reviewed.: Yes Medication/Allergy Home Medications: Levothyroxine Sodium 150 mcg PO Q6AM 12/22/18 Allergies/Adverse Reactions: adhesive tape Allergy (Intermediate, Verified 10/14/19 12:23) Generalized rash Review of Systems ROS unobtainable: Other Physical Exam Vital Signs: Temp Pulse Resp BP Pulse Ox 97.6 F 63 18 132/50 H 100 11/01/19 16:12 11/01/19 16:12 11/01/19 16:12 11/01/19 16:12 11/01/19 16:12 Intake & Output 10/31/19 11/01/19 11/02/19 06:59 06:59 06:59 Weight 65.2 kg General appearance: PRESENT: no acute distress Eye exam: PRESENT: PERRLA Respiratory exam: PRESENT: clear to auscultation debbie Cardiovascular exam: PRESENT: +S1, +S2 GI/Abdominal exam: PRESENT: soft, other - PEG tube Neurological exam: PRESENT: alert Results Laboratory Results: 11/01/19 12:31 11/01/19 12:31 11/01/19 11/01/19 11/01/19 12:31 12:31 12:31 WBC 11.2 H RBC 2.70 L Hgb 8.5 L Hct 26.5 L MCV 98 H MCH 31.5 MCHC 32.2 RDW 21.5 H Plt Count 288 Seg Neutrophils % 88.3 H Sodium 132.1 L Potassium 3.8 Chloride 95 L Carbon Dioxide 34 H Anion Gap 3 L BUN 26 H Creatinine 3.46 H Est GFR ( Amer) 15 L Glucose 117 H Lactic Acid 0.8 Calcium 8.7 Magnesium 2.2 Total Bilirubin 0.6 AST 18 Alkaline Phosphatase 129 H Total Protein 5.0 L Albumin 2.0 L 11/01/19 11/01/19 12:31 15:07 Troponin I 0.021 < 0.012 Impressions: Chest X-Ray 11/01/19 12:57 IMPRESSION: CARDIAC ENLARGEMENT. VASCULAR CONGESTION. Assessment & Plan - Diagnosis (1) Polymicrobial bacterial infection Is this a current diagnosis for this admission?: Yes Plan: Continue IV meropenem for 4 more days (2) End stage chronic kidney disease Is this a current diagnosis for this admission?: Yes Plan: Nephrology to supervise hemodialysis
[2019-11-01] MEDS: MEROPENEM 1 GM in NORMAL SALINE 50 ML IV SCH (22:21)
--- NOTE | 2019-11-01 23:59 | EKG REPORT ---
SEVERITY:- ABNORMAL ECG - SINUS OR ECTOPIC ATRIAL RHYTHM LOW VOLTAGE IN FRONTAL LEADS MINIMAL ST DEPRESSION, LATERAL LEADS PROLONGED QT INTERVAL : Confirmed by: Kindra Cai 01-Nov-2019 23:58:58
--- NOTE | 2019-11-01 23:59 | EKG REPORT ---
SEVERITY:- BORDERLINE ECG - SINUS RHYTHM SHORT MA INTERVAL, ACCELERATED AV CONDUCTION LOW VOLTAGE IN FRONTAL LEADS BORDERLINE T ABNORMALITIES, INFERIOR LEADS : Confirmed by: Kindra Cai 01-Nov-2019 23:58:31
[2019-11-02] MEDS ORDERED: GLUCAGON,HUMAN RECOMB 1 MG INJ IM PRN (01:00)
[2019-11-02] MEDS ORDERED: DEXTROSE 40% GEL 15 GM TUBE PO PRN (01:00)
[2019-11-02] MEDS ORDERED: DEXTROSE 50%-WATER SYRINGE 12.5 GM/25 ML DOSE IV PRN (01:00)
[2019-11-02] MEDS ORDERED: DEXTROSE 40% GEL 15 GM TUBE X 2 PO PRN (01:00)
[2019-11-02] MEDS ORDERED: DEXTROSE 50%-WATER SYRINGE 25 GM/50 ML DOSE IV PRN (01:00)
[2019-11-02] MEDS: MEROPENEM 1 GM in NORMAL SALINE 50 ML IV SCH ×2 (05:13→15:36)
[2019-11-02] MEDS: LEVOTHYROXINE SODIUM 0.15 MG TABLET PO SCH ×2 (07:34→07:47)
[2019-11-02] MEDS ORDERED: ERTAPENEM SODIUM 1 GM in NORMAL SALINE 50 ML IV SCH (10:00)
[2019-11-02] MEDS ORDERED: EPOETIN ALFA-EPBX 2,000 UNIT, EPOETIN ALFA-EPBX 3,000 UNIT, EPOETIN ALFA-EPBX 20,000 UN... IV PRN ×4 (13:23)
--- NOTE | 2019-11-02 15:15 | PDOC PROGRESS REPORT ---
Subjective Progress Note for:: 11/02/19 Reason For Visit: Patient discharged and readmitted from alf with worsening weaknes and altered mental status.She has a bad sacral decub ulcer growing ESBL ecoli/Proteus/Bacteroides/C.Perferingens that neeeds prolonged treatments with appropriate antibiotics. She was seen troday on HD. Generally feeling better but some confusion. Denies chest pains, dyspnea, fever or chills. Labs and meds were reviewed. Dialysis orders reviewed with treating heel breaster. Physical Exam Vital Signs: Temp Pulse Resp BP Pulse Ox 98.4 F 71 20 117/41 L 100 11/02/19 08:36 11/02/19 08:36 11/02/19 08:36 11/02/19 08:36 11/02/19 08:36 Intake & Output 11/01/19 11/02/19 11/03/19 06:59 06:59 06:59 Intake Total 485 Balance 485 Weight 65.1 kg 65.1 kg General appearance: PRESENT: no acute distress Respiratory exam: PRESENT: clear to auscultation debbie. ABSENT: crackles Cardiovascular exam: PRESENT: +S1, +S2 GI/Abdominal exam: PRESENT: normal bowel sounds, soft. ABSENT: organomegaly, tenderness Extremities exam: ABSENT: pedal edema Neurological exam: PRESENT: alert, awake, oriented to person, oriented to place Results Laboratory Results: 11/01/19 12:31 11/01/19 12:31 11/01/19 11/01/19 12:31 15:07 Troponin I 0.021 < 0.012 Impressions: Chest X-Ray 11/01/19 12:57 IMPRESSION: CARDIAC ENLARGEMENT. VASCULAR CONGESTION. Assessment & Plan - Diagnosis (3) ESBL (extended spectrum beta-lactamase) producing bacteria infection Plan: Large sacral decubitus ulcers with ESBL E. coli/Proteus/anaerobes. Patient started on meropenem by Dr. Adame. Suggest changing to ertapenem which can then be continued as outpatient dialysis at [facility]. (4) End stage renal disease on dialysis Is this a current diagnosis for this admission?: Yes Plan: Patient seen on dialysis today. Vital signs are stable. Dialysis is being undertaken without any issues. Dialysis being supervised to ensure safe and sm ooth procedure. Plan to remove a liter of fluid as tolerated. Dialysis orders were reviewed with the treating dialysis nurse. (5) Hypertension Qualifiers: Hypertension type: essential hypertension Qualified Code(s): I10 - Shereen montenegrowiliam (primary) hypertension Plan: Controlled. (6) Sacral decubitus ulcer, stage III Is this a current diagnosis for this admission?: Yes Plan: As mentioned earlier. ESBL E. coli and other polymicrobial infection. (7) Anemia in chronic kidney disease Qualifiers: Chronic kidney disease stage: on chronic dialysis Qualified Code(s): N18.6 - End stage renal disease; D63.1 - Anemia in chronic kidney disease; Z99.2 - Dependence on renal dialysis Is this a current diagnosis for this admission?: Yes Plan: Adjust erythropoietin.
--- NOTE | 2019-11-02 16:29 | CDI QUERY ---
CDI Query CDI Review: Dear Provider: To better reflect your patients severity of illness, morbidity, and resource utilization Please specify and document in the Progress Notes and Discharge Summary if you are monitoring / treating / evaluating any of the following conditions: Query Clinical indicators Please clarify and document if you concur with the Nephrology note and indicate: 1. Type of ulcer (diabetic, pressure, vascular, stasis, unable to determine 2. Stage of ulcer 3. Location of ulcer 4. If PRESENT ON ADMISSION (POA) Per Nephrology Note: she has a bad sacral decub ulcer growing ESBL ecoli/Proteus/Bacteroides/C.Perferingens that neeeds prolonged treatments with appropriate antibiotics. The terms probable, suspected, likely, possible or still to be ruled out may be used if you are unable to determine the exact nature of a condition. Thank you for your consideration, Clinical Documentation Physician Advisors RITA Sykes RN, BSN RN Office [phone] Office [phone]
--- NOTE | 2019-11-02 19:50 | PDOC PROGRESS REPORT ---
Subjective Progress Note for:: 11/02/19 Subjective:: Patient seen by the bedside had hemodialysis today no new complaints Reason For Visit: WEAKNESS Physical Exam Vital Signs: Temp Pulse Resp BP Pulse Ox 97.5 F 68 16 120/43 L 100 11/02/19 17:14 11/02/19 17:14 11/02/19 17:14 11/02/19 17:14 11/02/19 12:10 Intake & Output 11/01/19 11/02/19 11/03/19 06:59 06:59 06:59 Intake Total 485 50 Output Total 2200 Balance 485 -2150 Weight 65.1 kg 65.1 kg General appearance: PRESENT: no acute distress Eye exam: PRESENT: PERRLA Respiratory exam: PRESENT: clear to auscultation debbie Cardiovascular exam: PRESENT: +S2 Murmur grade: 3 GI/Abdominal exam: PRESENT: soft Neurological exam: PRESENT: alert Results Laboratory Results: 11/01/19 12:31 11/01/19 12:31 11/01/19 11/01/19 12:31 15:07 Troponin I 0.021 < 0.012 Impressions: Chest X-Ray 11/01/19 12:57 IMPRESSION: CARDIAC ENLARGEMENT. VASCULAR CONGESTION. Assessment & Plan - Diagnosis (1) Sacral decubitus ulcer, stage III Is this a current diagnosis for this admission?: Yes Plan: Continue IV antibiotic (2) Polymicrobial bacterial infection Is this a current diagnosis for this admission?: Yes (3) End stage chronic kidney disease Is this a current diagnosis for this admission?: Yes - Time Time Spent with patient: 15-24 minutes Level of Care: MEDICAL
[2019-11-03] MEDS: LEVOTHYROXINE SODIUM 0.15 MG TABLET PO SCH (05:11)
[2019-11-03] MEDS ORDERED: MEROPENEM 1 GM in NORMAL SALINE 50 ML IV SCH (10:00)
[2019-11-03] MEDS: MEROPENEM 1 GM in NORMAL SALINE 50 ML IV SCH (12:08)
--- NOTE | 2019-11-03 16:19 | PDOC PROGRESS REPORT ---
Subjective Progress Note for:: 11/03/19 Subjective:: Patient remain bed bound with minimal verbal interaction. No reported observed chest pain or difficulty with breathing. Reason For Visit: WEAKNESS Physical Exam Vital Signs: Temp Pulse Resp BP Pulse Ox 98.5 F 69 17 118/35 L 96 11/03/19 11:00 11/03/19 11:00 11/03/19 11:00 11/03/19 11:00 11/03/19 11:00 Intake & Output 11/02/19 11/03/19 11/04/19 06:59 06:59 06:59 Intake Total 485 662 Output Total 2200 Balance 485 -1538 Weight 65.1 kg 67.2 kg General appearance: PRESENT: no acute distress Head exam: PRESENT: atraumatic, normocephalic Eye exam: PRESENT: conjunctiva pink. ABSENT: scleral icterus Respiratory exam: PRESENT: decreased breath sounds - generally Cardiovascular exam: PRESENT: RRR, +S1, +S2, systolic murmur. ABSENT: diastolic murmur, rubs Murmur grade: 3 Vascular exam: ABSENT: pallor GI/Abdominal exam: PRESENT: normal bowel sounds, soft, other - PEG tube site satisfactory. ABSENT: tenderness Neurological exam: PRESENT: alert, awake Skin exam: PRESENT: dry, warm Results Laboratory Results: 11/01/19 12:31 11/01/19 12:31 11/01/19 12:31 Blood Blood Culture (PCR) - Final Staphylococcus Species 11/01/19 11/01/19 12:31 15:07 Troponin I 0.021 < 0.012 Impressions: Chest X-Ray 11/01/19 12:57 IMPRESSION: CARDIAC ENLARGEMENT. VASCULAR CONGESTION. Assessment & Plan - Diagnosis (1) Polymicrobial bacterial infection Is this a current diagnosis for this admission?: Yes Plan: Maintain on IV Meropenem coverage. (2) Sacral decubitus ulcer, stage III Is this a current diagnosis for this admission?: Yes Plan: Maintain on current Alleyvn wound dressing and change daily prn bases. (3) End stage renal disease on dialysis Is this a current diagnosis for this admission?: Yes Plan: Continue hemodialysis as per nephrology group. (4) T2DM (type 2 diabetes mellitus) Qualifiers: Diabetes mellitus prison insulin use: without prison use Diabetes mellitus complication status: with kidney complications Diabetes mellitus complication detail: with chronic kidney disease Chronic kidney disease stage: on chronic dialysis Qualified Code(s): E11.22 - Type 2 diabetes mellitus with diabetic chronic kidney disease; N18.6 - End stage renal disease; Z99.2 - Dependence on renal dialysis Is this a current diagnosis for this admission?: Yes Plan: Continue current medication management. (5) Anemia in chronic kidney disease Qualifiers: Chronic kidney disease stage: on chronic dialysis Qualified Code(s): N18.6 - End stage renal disease; D63.1 - Anemia in chronic kidney disease; Z99.2 - Dependence on renal dialysis Is this a current diagnosis for this admission?: Yes Plan: Continue current medication management as per nephrology recommendation. - Time Time Spent with patient: 25-34 minutes Level of Care: MEDICAL Medications reviewed and adjusted accordingly: Yes Anticipated discharge: SNF Within: Other - Inpatient Certification Based on my medical assessment, after consideration of the patient's comorbidities, presenting symptoms, or acuity I expect that the services needed warrant INPATIENT care.: Yes I certify that my determination is in accordance with my understanding of Medicare's requirements for reasonable and necessary INPATIENT services [42 CFR 412.3e].: Yes Medical Necessity: Significant Comorbidiites Make Outpatient Treatment Too Risky, Need Close Monitoring Due to Risk of Patient Decompensation, Need For IV Fluids, Need for IV Antibiotics, Risk of Complication if Not Cared For in Hospital, Risk of Diagnosis Which Will Require Inpatient Eval/Care/Monitoring Post Hospital Care: D/C Huc Ob Documentation - Plan Summary Plan Summary: Maintain on all current medication management.
[2019-11-04] MEDS: LEVOTHYROXINE SODIUM 0.15 MG TABLET PO SCH (07:39)
[2019-11-04] MEDS: MEROPENEM 1 GM in NORMAL SALINE 50 ML IV SCH (10:41)
--- NOTE | 2019-11-04 15:23 | PDOC PROGRESS REPORT ---
Subjective Progress Note for:: 11/04/19 Subjective:: No reported observed chest pain or difficulty with breathing. No fever. Tolerating tube feeding. Reason For Visit: WEAKNESS Physical Exam Vital Signs: Temp Pulse Resp BP Pulse Ox 98.3 F 80 17 131/51 H 98 11/04/19 12:11 11/04/19 12:11 11/04/19 12:11 11/04/19 12:11 11/04/19 12:11 Intake & Output 11/03/19 11/04/19 11/05/19 06:59 06:59 06:59 Intake Total 662 692 Output Total 2200 Balance -1538 692 Weight 67.2 kg 67.5 kg Murmur grade: 3 Results Laboratory Results: 11/01/19 12:31 11/01/19 12:31 11/01/19 12:31 Blood Blood Culture (PCR) - Final Staphylococcus Species 11/01/19 11/01/19 12:31 15:07 Troponin I 0.021 < 0.012 Impressions: Chest X-Ray 11/01/19 12:57 IMPRESSION: CARDIAC ENLARGEMENT. VASCULAR CONGESTION. Assessment & Plan - Diagnosis (1) Polymicrobial bacterial infection Is this a current diagnosis for this admission?: Yes (2) Sacral decubitus ulcer, stage III Is this a current diagnosis for this admission?: Yes (3) End stage renal disease on dialysis Is this a current diagnosis for this admission?: Yes (4) T2DM (type 2 diabetes mellitus) Qualifiers: Diabetes mellitus jail insulin use: without ocean transportation intermediary use Diabetes mellitus complication status: with kidney complications Diabetes mellitus complication detail: with chronic kidney disease Chronic kidney disease stage: on chronic dialysis Qualified Code(s): E11.22 - Type 2 diabetes mellitus with diabetic chronic kidney disease; N18.6 - End stage renal disease; Z99.2 - Dependence on renal dialysis Is this a current diagnosis for this admission?: Yes (5) Anemia in chronic kidney disease Qualifiers: Chronic kidney disease stage: on chronic dialysis Qualified Code(s): N18.6 - End stage renal disease; D63.1 - Anemia in chronic kidney disease; Z99.2 - Dependence on renal dialysis Is this a current diagnosis for this admission?: Yes - Time Time Spent with patient: 25-34 minutes Level of Care: MEDICAL Medications reviewed and adjusted accordingly: Yes Anticipated discharge: SNF Within: Other - Inpatient Certification Based on my medical assessment, after consideration of the patient's comorbidities, presenting symptoms, or acuity I expect that the services needed warrant INPATIENT care.: Yes I certify that my determination is in accordance with my understanding of Medicare's requirements for reasonable and necessary INPATIENT services [42 CFR 412.3e].: Yes Medical Necessity: Significant Comorbidiites Make Outpatient Treatment Too Risky, Need Close Monitoring Due to Risk of Patient Decompensation, Need For IV Fluids, Need for IV Antibiotics, Risk of Complication if Not Cared For in Hospital, Risk of Diagnosis Which Will Require Inpatient Eval/Care/Monitoring Post Hospital Care: D/C [place] Documentation - Plan Summary Plan Summary: Continue current medication management. Obtain CBC with diff, BMP in AM.
[2019-11-05] MEDS ORDERED: EPOETIN ALFA-EPBX 2,000 UNIT, EPOETIN ALFA-EPBX 3,000 UNIT, EPOETIN ALFA-EPBX 20,000 UN... IV PRN ×4 (05:00)
[2019-11-05] MEDS: LEVOTHYROXINE SODIUM 0.15 MG TABLET PO SCH (06:23)
[2019-11-05 08:08] LABS: BLOOD UREA NITROGEN 40 mg/dL (7-20); CALCIUM 8.8 mg/dL (8.4-10.2); CARBON DIOXIDE 33 mmol/L (22-30); GLUCOSE 143 mg/dL (75-110); POTASSIUM 4.2 mmol/L (3.6-5.0)
[2019-11-05 08:14] LABS: CHLORIDE 96 mmol/L (98-107)
[2019-11-05 08:19] LABS: ANION GAP 3 (5-19)
[2019-11-05 08:20] LABS: ABSOLUTE EOSINOPHILS # (AUTO) 0.2 10^3/uL (0.0-0.6); ABSOLUTE LYMPHOCYTES (AUTO) 0.8 10^3/uL (0.5-4.7); ABSOLUTE MONOCYTES (AUTO) 0.5 10^3/uL (0.1-1.4); ABSOLUTE NEUT (AUTO) 7.2 10^3/uL (1.7-8.2); BASOPHILS % (AUTO) 0.5 % (0-2); EOSINOPHILS % (AUTO) 1.8 % (0-6); HEMATOCRIT 25.5 % (36.0-47.0); HEMOGLOBIN 8.7 g/dL (12.0-15.5); LYMPHOCYTES % (AUTO) 8.9 % (13-45); MEAN CORPUSCULAR HEMOGLOBIN 33.1 pg (27.0-33.4); MEAN CORPUSCULAR HGB CONC 34.1 g/dL (32.0-36.0); MEAN CORPUSCULAR VOLUME 97 fl (80-97); MONOCYTES % (AUTO) 5.3 % (3-13); PLATELET COUNT 301 10^3/uL (150-450); RED BLOOD COUNT 2.62 10^6/uL (3.72-5.28); RED CELL DISTRIBUTION WIDTH 22.6 % (11.5-14.0); SEGMENTED NEUTROPHILS % (AUTO) 83.5 % (42-78); TOTAL CELLS COUNTED % (AUTO) 100 %; WHITE BLOOD COUNT 8.6 10^3/uL (4.0-10.5)
[2019-11-05] MEDS ORDERED: ERTAPENEM SODIUM INJ 1 GM VIAL IV SCH (10:00)
[2019-11-05] MEDS: ERTAPENEM SODIUM 0.5 GM in NORMAL SALINE 50 ML IV SCH (11:50)
--- NOTE | 2019-11-05 12:17 | PDOC PROGRESS REPORT ---
Subjective Progress Note for:: 11/05/19 Subjective:: Patient is known to me with history of end-stage renal disease and those yes admitted from October 13 to October 30 after sustaining a closed right intertrochanteric fracture status post ORIF on October 15. Subsequently the patient was noted to have poor oral intake with failure to thrive and a PEG tube was placed and tube feeding was initiated. Prior to discharge the patient had a decubitus ulcer wound culture showing polymicrobial organisms including ESBL E. coli, Proteus, Bacteroides and Clostridium perfringens. She was started on ertapenem on 10/31/2019 which was supposedly continued. She was discharged and transferred to [facility] on October 30 but then the facility realized that they cannot give IV antibiotics on temporary right femoral catheter so she was r eadmitted back on 11/01/2019. From review of records it appears that the patient is going to finish her IV ertapenem tomorrow for a 1 week course and then plan to be transferred back to [facility]. She is [facility] to [facility] her dialysis [facility]. I am seeing the patient during dialysis this morning. She actually appears to be better than when I last saw her couple weeks ago. She is more awake and has been communicating better. She is tolerating dialysis and has no current complaints. Reason For Visit: WEAKNESS Physical Exam Vital Signs: Temp Pulse Resp BP Pulse Ox 98.5 F 71 19 135/46 H 100 11/04/19 23:34 11/04/19 23:34 11/04/19 23:34 11/04/19 23:34 11/04/19 23:34 Intake & Output 11/04/19 11/05/19 11/06/19 06:59 06:59 06:59 Intake Total 692 560 Balance 692 560 Weight 67.5 kg 65.5 kg Vitals during dialysis: Blood pressure 109/48, heart rate of 78, blood flow rate of 300 mL/min and dialysate flow rate of 800 mL/min. Exam: General appearance: PRESENT: no acute distress, cooperative, well-developed, well-nourished Head exam: PRESENT: atraumatic, normocephalic Eye exam: PRESENT: conjunctiva pale, PERRLA. Legally blind ABSENT: scleral icterus Neck exam: ABSENT: JVD Respiratory exam: PRESENT: Diminished breath sounds. ABSENT: crackles, rales, rhonchi, unlabored, wheezes Cardiovascular exam: PRESENT: Regular rate rhythm -+S1, +S2. ABSENT: diastolic murmur, systolic murmur GI/Abdominal exam: PRESENT: normal bowel sounds, soft. ABSENT: guarding, mass, tenderness Extremities exam: Bilateral trace edema Neurological exam: PRESENT: alert, awake, oriented to person, place and time. Skin exam: PRESENT: dry, warm, Cardiovascular exam: PRESENT: +S1, +S2 GI/Abdominal exam: PRESENT: normal bowel sounds, soft. ABSENT: organomegaly, tenderness Results Laboratory Results: 11/05/19 07:35 11/05/19 07:35 11/05/19 11/05/19 07:35 07:35 WBC 8.6 RBC 2.62 L Hgb 8.7 L Hct 25.5 L MCV 97 MCH 33.1 MCHC 34.1 RDW 22.6 H Plt Count 301 Seg Neutrophils % 83.5 H Sodium 132.1 L Potassium 4.2 Chloride 96 L Carbon Dioxide 33 H Anion Gap 3 L BUN 40 H Creatinine 4.34 H Est GFR ( Amer) 12 L Glucose 143 H Calcium 8.8 11/01/19 12:31 Blood Blood Culture (PCR) - Final Staphylococcus Species 11/01/19 11/01/19 12:31 15:07 Troponin I 0.021 < 0.012 Impressions: Chest X-Ray 11/01/19 12:57 IMPRESSION: CARDIAC ENLARGEMENT. VASCULAR CONGESTION. Assessment & Plan - Diagnosis (1) End stage renal disease on dialysis Is this a current diagnosis for this admission?: Yes Plan: We will do dialysis today for 3 hours, using the patient's AV fistula, with 3 potassium bath, blood flow rate of 300 mL per minute, dialysate flow rate of 800 mL per minute, ultrafiltration 0.5 to 1 L as tolerated, no heparin and Procrit with 25,000 units during dialysis intravenously. Patient is closely monitored throughout dialysis treatment this morning. (2) ESBL (extended spectrum beta-lactamase) producing bacteria infection Is this a current diagnosis for this admission?: Yes Plan: Currently being treated with IV ertapenem started on 10/31/2019. (3) Polymicrobial bacterial infection Is this a current diagnosis for this admission?: Yes Plan: Aside from ESBL E. coli also with Proteus, Bacteroides and Clostridium perfringens. Currently on IV ertapenem. (4) Anemia in chronic kidney disease Qualifiers: Chronic kidney disease stage: on chronic dialysis Qualified Code(s): N18.6 - End stage renal disease; D63.1 - Anemia in chronic kidney disease; Z99.2 - Dependence on renal dialysis Is this a current diagnosis for this admission?: Yes Plan: Retacrit to be given during dialysis. (5) Sacral decubitus ulcer, stage III Is this a current diagnosis for this admission?: Yes (6) Adult failure to thrive Is this a current diagnosis for this admission?: Yes Plan: Patient still has tube feeding. However I was told that she is starting to eat orally. (7) Hyponatremia Is this a current diagnosis for this admission?: Yes (8) Diabetes mellitus type 2 in obese Is this a current diagnosis for this admission?: Yes - Time Time with patient: 15-25 minutes
--- NOTE | 2019-11-05 19:17 | PDOC PROGRESS REPORT ---
Subjective Progress Note for:: 11/05/19 Subjective:: Patient is seen by the bedside, she was dialyzed today, the nurses said she is filler picker increase oral intake, I advised that they should encourage her to keep eating by mouth, PEG tube was inserted because of decreased p.o. intake. She will hopefully be transferred to long-term by Tuesday, she would had antibiotic for for 7 days Reason For Visit: WEAKNESS Physical Exam Vital Signs: Temp Pulse Resp BP Pulse Ox 97.6 F 71 16 103/59 L 100 11/05/19 11:47 11/04/19 23:34 11/05/19 11:47 11/05/19 11:47 11/04/19 23:34 Intake & Output 11/04/19 11/05/19 11/06/19 06:59 06:59 06:59 Intake Total 692 560 120 Output Total 800 Balance 692 560 -680 Weight 67.5 kg 65.5 kg General appearance: PRESENT: no acute distress Eye exam: PRESENT: PERRLA Respiratory exam: PRESENT: clear to auscultation debbie Cardiovascular exam: PRESENT: +S1, +S2 Murmur grade: 3 GI/Abdominal exam: PRESENT: soft Results Laboratory Results: 11/05/19 07:35 11/05/19 07:35 11/05/19 11/05/19 07:35 07:35 WBC 8.6 RBC 2.62 L Hgb 8.7 L Hct 25.5 L MCV 97 MCH 33.1 MCHC 34.1 RDW 22.6 H Plt Count 301 Seg Neutrophils % 83.5 H Sodium 132.1 L Potassium 4.2 Chloride 96 L Carbon Dioxide 33 H Anion Gap 3 L BUN 40 H Creatinine 4.34 H Est GFR ( Amer) 12 L Glucose 143 H Calcium 8.8 11/01/19 12:31 Blood Blood Culture (PCR) - Final Staphylococcus Species 11/01/19 12:31 Blood Blood Culture - Final Staphylococcus Epidermidis 11/01/19 11/01/19 12:31 15:07 Troponin I 0.021 < 0.012 Impressions: Chest X-Ray 11/01/19 12:57 IMPRESSION: CARDIAC ENLARGEMENT. VASCULAR CONGESTION. Assessment & Plan - Diagnosis (1) Sacral decubitus ulcer, stage III Is this a current diagnosis for this admission?: Yes (2) Polymicrobial bacterial infection Is this a current diagnosis for this admission?: Yes (3) End stage chronic kidney disease Is this a current diagnosis for this admission?: Yes (4) Adult failure to thrive Is this a current diagnosis for this admission?: Yes (5) T2DM (type 2 diabetes mellitus) Qualifiers: Diabetes mellitus alf insulin use: without pattern duplicator use Diabetes mellitus complication status: with kidney complications Diabetes mellitus comp lication detail: with chronic kidney disease Chronic kidney disease stage: on chronic dialysis Qualified Code(s): E11.22 - Type 2 diabetes mellitus with diabetic chronic kidney disease; N18.6 - End stage renal disease; Z99.2 - Dependence on renal dialysis Is this a current diagnosis for this admission?: Yes - Time Time Spent with patient: 25-34 minutes - Plan Summary Plan Summary: Continue present line of management
[2019-11-06] MEDS: LEVOTHYROXINE SODIUM 0.15 MG TABLET PO SCH (05:35)
[2019-11-06] MEDS: ERTAPENEM SODIUM 0.5 GM in NORMAL SALINE 50 ML IV SCH (09:16)
[2019-11-06] MEDS: TRAMADOL HCL 50 MG TABLET PO PRN (15:55)
--- NOTE | 2019-11-06 20:36 | PDOC PROGRESS REPORT ---
Subjective Progress Note for:: 11/06/19 Subjective:: Patient seen by the bedside, [facility]ir Abreu [facility] Reason For Visit: WEAKNESS Physical Exam Vital Signs: Temp Pulse Resp BP Pulse Ox 97.3 F 70 18 115/56 L 100 11/06/19 16:31 11/06/19 16:31 11/06/19 16:31 11/06/19 16:31 11/06/19 16:31 Intake & Output 11/05/19 11/06/19 11/07/19 06:59 06:59 06:59 Intake Total 560 917 680 Output Total 800 0 Balance 560 117 680 Weight 65.5 kg 71.3 kg 71.3 kg General appearance: PRESENT: no acute distress Eye exam: PRESENT: PERRLA Respiratory exam: PRESENT: clear to auscultation debbie Cardiovascular exam: PRESENT: +S1, +S2 Murmur grade: 3 Results Laboratory Results: 11/05/19 07:35 11/05/19 07:35 11/01/19 15:07 Blood Blood Culture - Final NO GROWTH IN 5 DAYS 11/01/19 11/01/19 12:31 15:07 Troponin I 0.021 < 0.012 Impressions: Chest X-Ray 11/01/19 12:57 IMPRESSION: CARDIAC ENLARGEMENT. VASCULAR CONGESTION. Assessment & Plan - Diagnosis (1) Sacral decubitus ulcer, stage III Is this a current diagnosis for this admission?: Yes (2) Polymicrobial bacterial infection Is this a current diagnosis for this admission?: Yes (3) End stage chronic kidney disease Is this a current diagnosis for this admission?: Yes (4) Adult failure to thrive Is this a current diagnosis for this admission?: Yes (5) T2DM (type 2 diabetes mellitus) Qualifiers: Diabetes mellitus tank terminal gauger insulin use: without fpc use Diabetes mellitus complication status: with kidney complications Diabetes mellitus complication detail: with chronic kidney disease Chronic kidney disease stage: on chronic dialysis Qualified Code(s): E11.22 - Type 2 diabetes mellitus with diabetic chronic kidney disease; N18.6 - End stage renal disease; Z99.2 - Dependence on renal dialysis Is this a current diagnosis for this admission?: Yes - Time Time Spent with patient: 15-24 minutes Level of Care: MEDICAL
--- NOTE | 2019-11-06 20:45 | PDOC TRANSFER SUMMARY ---
Impression - Admit/DC Date/PCP Admission Date/Primary Care Provider: 11/01/19 14:10 JOSE MANUEL MIX MD Discharge Date: 11/07/19 - Discharge Diagnosis (1) Sacral decubitus ulcer, stage III Is this a current diagnosis for this admission?: Yes (2) Polymicrobial bacterial infection Is this a current diagnosis for this admission?: Yes (3) End stage chronic kidney disease Is this a current diagnosis for this admission?: Yes (4) Adult failure to thrive Is this a current diagnosis for this admission?: Yes (5) T2DM (type 2 diabetes mellitus) Is this a current diagnosis for this admission?: Yes - Additional Information Resuscitation Status: Do Not Resuscitate Discharge Diet: As Tolerated, Diabetic, Tube Feeding (Comments) - continue tube feed from inpatient Discharge Activity: Activity As Tolerated Referrals: JOSE MANUEL MIX MD [Primary Care Provider] - Follow up as needed Home Medications: Levothyroxine Sodium 150 mcg PO Q6AM 12/22/18 Glucagon,Human Recombinant [Glucagen Inj 1 mg Vial] 1 mg IM PRN PRN vial 11/06/19 History of Present Illiness History of Present Illness: LOVELY ESPAÑA is a 78 year old female.She was discharged yesterday to the nursing normal for physical therapy and rehabilitation, she was discharged on intravenous ertapenem because of ESBL E. coli wound infection. She has a central line in the femoral vein, the group home sent patient back to the hospital because it is not the policy to accept patient with femoral central line. She is a patient on dialysis, PICC line is contraindicated in a patient on dialysis because of the potential to utilize the peripheral veins for dialysis, patient is back in the hospital she has dementia, hard of hearing. legally blind she will stay in the hospital for the completion of IV antibiotic before she be transferred back to the restroom/retirement home. The last time she was in the hospital she had a PEG tube in place. She is also a DNR status this to be maintained on this admission as well .I saw patient by the bedside there is no new complaints Hospital Course Hospital Course: Patient was admitted for the management of infected decubitus ulcer, she was treated with intravenous ertapenem, she has end-stage renal disease requiring hemodialysis, she was seen by handyperson, the hemodialysis was supervised by handyperson. Patient was very lucid at this admission, she engaged in conversation, she was able to eat by mouth, the PEG tube was placed because of diminished intake orally patient should be encouraged to eat by mouth for pleasure and if she is able to sustain adequate calorie by mouth the gastrostomy tube could be discontinued.The sacral wound dressing should continue as it is in the hospital Physical Exam Vital Signs: Temp Pulse Resp BP Pulse Ox 97.8 F 87 18 135/57 H 100 11/06/19 20:27 11/06/19 20:27 11/06/19 20:27 11/06/19 20:27 11/06/19 20:27 Intake & Output 11/05/19 11/06/19 11/07/19 06:59 06:59 06:59 Intake Total 560 917 680 Output Total 800 0 Balance 560 117 680 Weight 65.5 kg 71.3 kg 71.3 kg General appearance: PRESENT: no acute distress Eye exam: PRESENT: PERRLA Respiratory exam: PRESENT: clear to auscultation debbie Cardiovascular exam: PRESENT: +S1, +S2 GI/Abdominal exam: PRESENT: other - PEG tube in place Neurological exam: PRESENT: alert Results Laboratory Results: WBC 8.6 10^3/uL (4.0-10.5) 11/05/19 07:35 RBC 2.62 10^6/uL (3.72-5.28) L 11/05/19 07:35 Hgb 8.7 g/dL (12.0-15.5) L 11/05/19 07:35 Hct 25.5 % (36.0-47.0) L 11/05/19 07:35 MCV 97 fl (80-97) 11/05/19 07:35 MCH 33.1 pg (27.0-33.4) 11/05/19 07:35 MCHC 34.1 g/dL (32.0-36.0) 11/05/19 07:35 RDW 22.6 % (11.5-14.0) H 11/05/19 07:35 Plt Count 301 10^3/uL (150-450) 11/05/19 07:35 Lymph % (Auto) 8.9 % (13-45) L 11/05/19 07:35 [place] % (Auto) 5.3 % (3-13) 11/05/19 07:35 Eos % (Auto) 1.8 % (0-6) 11/05/19 07:35 Baso % (Auto) 0.5 % (0-2) 11/05/19 07:35 Absolute Neuts (auto) 7.2 10^3/uL (1.7-8.2) 11/05/19 07:35 Absolute Lymphs (auto) 0.8 10^3/uL (0.5-4.7) 11/05/19 07:35 Absolute Monos (auto) 0.5 10^3/uL (0.1-1.4) 11/05/19 07:35 Absolute Eos (auto) 0.2 10^3/uL (0.0-0.6) 11/05/19 07:35 Absolute Basos (auto) 0.0 10^3/uL (0.0-0.2) 11/05/19 07:35 Seg Neutrophils % 83.5 % (42-78) H 11/05/19 07:35 PT 13.3 SEC (11.4-15.4) 11/01/19 12:31 INR 1.01 11/01/19 12:31 APTT 32.0 SEC (23.5-35.8) 11/01/19 12:31 Sodium 132.1 mmol/L (137-145) L 11/05/19 07:35 Potassium 4.2 mmol/L (3.6-5.0) 11/05/19 07:35 Chloride 96 mmol/L (98-107) L 11/05/19 07:35 Carbon Dioxide 33 mmol/L (22-30) H 11/05/19 07:35 Anion Gap 3 (5-19) L 11/05/19 07:35 BUN 40 mg/dL (7-20) H 11/05/19 07:35 Creatinine 4.34 mg/dL (0.52-1.25) H 11/05/19 07:35 Est GFR ( Amer) 12 (>60) L 11/05/19 07:35 Est GFR (MDRD) Non-Af 10 (>60) L 11/05/19 07:35 Glucose 143 mg/dL (75-110) H 11/05/19 07:35 POC Glucose 136 mg/dL (70-110) H 11/06/19 15:32 Lactic Acid 0.8 mmol/L (0.7-2.1) 11/01/19 12:31 Calcium 8.8 mg/dL (8.4-10.2) 11/05/19 07:35 Magnesium 2.2 mg/dL (1.6-2.3) 11/01/19 12:31 Total Bilirubin 0.6 mg/dL (0.2-1.3) 11/01/19 12:31 Direct Bilirubin 0.3 mg/dL (0.0-0.4) 11/01/19 12:31 Neonat Total Bilirubin Not Reportable 11/01/19 12:31 Neonat Direct Bilirubin Not Reportable 11/01/19 12:31 Neonat Indirect Bili Not Reportable 11/01/19 12:31 AST 18 U/L (14-36) 11/01/19 12:31 ALT < 4 U/L (<35) 11/01/19 12:31 Alkaline Phosphatase 129 U/L (38-126) H 11/01/19 12:31 Troponin I < 0.012 ng/mL 11/01/19 15:07 Total Protein 5.0 g/dL (6.3-8.2) L 11/01/19 12:31 Albumin 2.0 g/dL (3.5-5.0) L 11/01/19 12:31 11/01/19 11/01/19 12:31 15:07 Troponin I 0.021 < 0.012 Impressions: Chest X-Ray 11/01/19 12:57 IMPRESSION: CARDIAC ENLARGEMENT. VASCULAR CONGESTION. Stroke Is this a Stroke Patient?: No Acute Heart Failure - Is this a Heart Failure Patient?: No
[2019-11-07] MEDS: TRAMADOL HCL 50 MG TABLET PO PRN (00:20)
[2019-11-07] MEDS ORDERED: EPOETIN ALFA-EPBX 2,000 UNIT, EPOETIN ALFA-EPBX 3,000 UNIT, EPOETIN ALFA-EPBX 20,000 UN... IV PRN ×4 (05:00)
[2019-11-07] MEDS ORDERED: NORMAL SALINE 1000 ML 1,000 ML IV PRN (05:00)
[2019-11-07] MEDS: LEVOTHYROXINE SODIUM 0.15 MG TABLET PO SCH (06:25)
[2019-11-07] MEDS: ERTAPENEM SODIUM 0.5 GM in NORMAL SALINE 50 ML IV SCH (12:17)
[2019-11-07 14:10] LABS: ABSOLUTE EOSINOPHILS # (AUTO) 0.1 10^3/uL (0.0-0.6); ABSOLUTE LYMPHOCYTES (AUTO) 0.6 10^3/uL (0.5-4.7); ABSOLUTE MONOCYTES (AUTO) 0.5 10^3/uL (0.1-1.4); ABSOLUTE NEUT (AUTO) 5.4 10^3/uL (1.7-8.2); BASOPHILS % (AUTO) 0.5 % (0-2); EOSINOPHILS % (AUTO) 1.6 % (0-6); HEMOGLOBIN 8.1 g/dL (12.0-15.5); LYMPHOCYTES % (AUTO) 9.4 % (13-45); MEAN CORPUSCULAR HEMOGLOBIN 32.5 pg (27.0-33.4); MEAN CORPUSCULAR HGB CONC 32.6 g/dL (32.0-36.0); MEAN CORPUSCULAR VOLUME 100 fl (80-97); PLATELET COUNT 260 10^3/uL (150-450); RED BLOOD COUNT 2.51 10^6/uL (3.72-5.28); RED CELL DISTRIBUTION WIDTH 23.7 % (11.5-14.0); SEGMENTED NEUTROPHILS % (AUTO) 81.5 % (42-78); TOTAL CELLS COUNTED % (AUTO) 100 %; WHITE BLOOD COUNT 6.7 10^3/uL (4.0-10.5)
[2019-11-07 14:28] LABS: BLOOD UREA NITROGEN 17 mg/dL (7-20); CALCIUM 7.7 mg/dL (8.4-10.2); CHLORIDE 97 mmol/L (98-107); GLUCOSE 161 mg/dL (75-110); POTASSIUM 3.5 mmol/L (3.6-5.0)
[2019-11-07 14:34] LABS: CARBON DIOXIDE 36 mmol/L (22-30)
[2019-11-07 14:35] LABS: ANION GAP 0 (5-19)
--- NOTE | 2019-11-07 15:33 | PDOC PROGRESS REPORT ---
Subjective Progress Note for:: 11/07/19 Subjective:: Patient was supposed to be transferred [facility] but there was a question of exposure potentially to COVID virus, she has to get COVID test done before she can be transfer. This will obviously delay transfer Reason For Visit: WEAKNESS Physical Exam Vital Signs: Temp Pulse Resp BP Pulse Ox 98.4 F 72 18 145/56 H 100 11/06/19 23:47 11/06/19 23:47 11/06/19 23:47 11/06/19 23:47 11/06/19 23:47 Intake & Output 11/06/19 11/07/19 11/08/19 06:59 06:59 06:59 Intake Total 917 680 50 Output Total 800 0 Balance 117 680 50 Weight 71.3 kg 69.9 kg General appearance: PRESENT: no acute distress Eye exam: PRESENT: PERRLA Respiratory exam: PRESENT: clear to auscultation debbie Cardiovascular exam: PRESENT: +S1, +S2 Murmur grade: 3 GI/Abdominal exam: PRESENT: soft Results Laboratory Results: 11/07/19 13:45 11/07/19 13:45 11/07/19 11/07/19 13:45 13:45 WBC 6.7 RBC 2.51 L Hgb 8.1 L Hct 25.0 L MCV 100 H MCH 32.5 MCHC 32.6 RDW 23.7 H Plt Count 260 Seg Neutrophils % 81.5 H Sodium 132.9 L Potassium 3.5 L Chloride 97 L Carbon Dioxide 36 H Anion Gap 0 L BUN 17 Creatinine 2.16 H Est GFR ( Amer) 27 L Glucose 161 H Calcium 7.7 L 11/01/19 15:07 Blood Blood Culture - Final NO GROWTH IN 5 DAYS 11/01/19 11/01/19 12:31 15:07 Troponin I 0.021 < 0.012 Impressions: Chest X-Ray 11/01/19 12:57 IMPRESSION: CARDIAC ENLARGEMENT. VASCULAR CONGESTION. Assessment & Plan - Diagnosis (1) Sacral decubitus ulcer, stage III Is this a current diagnosis for this admission?: Yes (2) Polymicrobial bacterial infection Is this a current diagnosis for this admission?: Yes (3) End stage chronic kidney disease Is this a current diagnosis for this admission?: Yes (4) Adult failure to thrive Is this a current diagnosis for this admission?: Yes (5) T2DM (type 2 diabetes mellitus) Qualifiers: Diabetes mellitus [facility] insulin use: without [facility] use Diabetes mellitus complication status: with kidney complications Diabetes mellitus complication detail: with chronic kidney disease Chronic kidney disease stage: on chronic dialysis Qualified Code(s): E11.22 - Type 2 diabetes mellitus with diabetic chronic kidney disease; N18.6 - End stage renal disease; Z99.2 - Dependence on renal dialysis Is this a current diagnosis for this admission?: Yes - Time Time Spent with patient: 25-34 minutes Level of Care: MEDICAL
--- NOTE | 2019-11-07 19:08 | PDOC PROGRESS REPORT ---
Subjective Progress Note for:: 11/07/19 Subjective:: I am seeing the patient during dialysis treatment this morning. He is doing fine except for relatively low blood pressure which is not unusual for her. She is awake and communicating. She is tolerating dialysis otherwise. Reason For Visit: WEAKNESS Physical Exam Vital Signs: Temp Pulse Resp BP Pulse Ox 98.4 F 72 18 145/56 H 100 11/06/19 23:47 11/06/19 23:47 11/06/19 23:47 11/06/19 23:47 11/06/19 23:47 Intake & Output 11/06/19 11/07/19 11/08/19 06:59 06:59 06:59 Intake Total 917 680 Output Total 800 0 Balance 117 680 Weight 71.3 kg 69.9 kg Vitals during dialysis: Blood pressure 88/49, heart rate of 68, blood flow rate of 450 mL/min and dialysate flow rate of 800 mL/min. Exam: General appearance: PRESENT: no acute distress, cooperative, well-developed, well-nourished Head exam: PRESENT: atraumatic, normocephalic Eye exam: PRESENT: conjunctiva pale, legally blind ABSENT: scleral icterus Neck exam: ABSENT: JVD Respiratory exam: PRESENT: Normal breath sounds. ABSENT: crackles, rales, rho nchi, unlabored, wheezes Cardiovascular exam: PRESENT: Regular rate rhythm -+S1, +S2. ABSENT: diastolic murmur, systolic murmur GI/Abdominal exam: PRESENT: normal bowel sounds, soft. ABSENT: guarding, mass, tenderness Extremities exam: ABSENT: No lower extremities edema, however her access arm on the left is mildly swollen. Neurological exam: PRESENT: alert, awake, oriented to person, place and time. Skin exam: PRESENT: dry, warm, Cardiovascular exam: PRESENT: +S1, +S2 GI/Abdominal exam: PRESENT: normal bowel sounds, soft. ABSENT: organomegaly, tenderness Results Laboratory Results: 11/05/19 07:35 11/05/19 07:35 11/01/19 15:07 Blood Blood Culture - Final NO GROWTH IN 5 DAYS 11/01/19 11/01/19 12:31 15:07 Troponin I 0.021 < 0.012 Impressions: Chest X-Ray 11/01/19 12:57 IMPRESSION: CARDIAC ENLARGEMENT. VASCULAR CONGESTION. Assessment & Plan - Diagnosis (1) End stage renal disease on dialysis Is this a current diagnosis for this admission?: Yes Plan: We will do dialysis today for 3 hours, using the patient's AV fistula, with 2 potassium bath, blood flow rate of 450 mL per minute, dialysate flow rate of 800 mL per minute, ultrafiltration 1 L as tolerated, no heparin and Retacrit with 25,000 units during dialysis intravenously. Patient will be closely monitored during dialysis treatment due to hypotension. Ultrafiltration will be adjusted accordingly. Upon transfer to [facility], patient will be dialyzed at [facility] which is already set up. (2) ESBL (extended spectrum beta-lactamase) producing bacteria infection Is this a current diagnosis for this admission?: Yes Plan: Currently being treated with IV ertapenem started on 10/31/2019. On review of the patient's medication record, it seems that she has missed 2 days of doses of her antibiotics. The plan is to continue her IV ertapenem to be given 1 g IV q. dialysis treatment at [facility] which is already set up for Tuesday when she goes there upon transfer to [facility]. (3) Polymicrobial bacterial infection Is this a current diagnosis for this admission?: Yes Plan: Aside from ESBL E. coli also with Proteus, Bacteroides and Clostridium perfringens. Currently on IV ertapenem. (4) Anemia in chronic kidney disease Qualifiers: Chronic kidney disease stage: on chronic dialysis Qualified Code(s): N18.6 - End stage renal disease; D63.1 - Anemia in chronic kidney disease; Z99.2 - Dependence on renal dialysis Is this a current diagnosis for this admission?: Yes Plan: Retacrit to be given during dialysis. (5) Sacral decubitus ulcer, stage III Is this a current diagnosis for this admission?: Yes (6) Adult failure to thrive Is this a current diagnosis for this admission?: Yes Plan: Patient still has tube feeding. However I was told that she is starting to eat orally. (7) Hyponatremia Is this a current diagnosis for this admission?: Yes Plan: Stable. (8) Diabetes mellitus type 2 in obese Is this a current diagnosis for this admission?: Yes - Notes Notes: I have confirmed with [facility] that she has a spot for her dialysis after today and she will be given the IV ertapenem during dialysis treatment for another week. - Time Time with patient: 15-25 minutes
[2019-11-08] MEDS: LEVOTHYROXINE SODIUM 0.15 MG TABLET PO SCH (05:17)
[2019-11-08] MEDS: TRAMADOL HCL 50 MG TABLET PO PRN ×2 (05:17→22:36)
[2019-11-08] MEDS: ERTAPENEM SODIUM 0.5 GM in NORMAL SALINE 50 ML IV SCH (10:56)
[2019-11-08] MEDS ORDERED: DEXTROSE 40% GEL 15 GM TUBE PO PRN ×2 (11:33)
[2019-11-08] MEDS ORDERED: DEXTROSE 50%-WATER 25 GM/50 ML DISP.SYRIN IV PRN ×2 (11:33)
[2019-11-08] MEDS ORDERED: GLUCAGON,HUMAN RECOMB 1 MG INJ SUBCUT PRN (11:33)
--- NOTE | 2019-11-08 19:57 | PDOC PROGRESS REPORT ---
Subjective Progress Note for:: 11/08/19 Subjective:: Patient supposedly was exposed to a patient that was positive for coronavirus, she was tested, she was negative for SARS-CoV-2. The facility that she was supposed to be transferred to refused to accept the patient until the index case and she was exposed to was negative for coronavirus, I find that very strange, I thought she Could be discharged to her regular residence but her daughter said they just moved and they cannot presently accommodate her, so there is no choice other than to transfer to a facility Reason For Visit: WEAKNESS Physical Exam Vital Signs: Temp Pulse Resp BP Pulse Ox 97.2 F 69 16 135/38 H 100 11/08/19 15:40 11/08/19 15:40 11/08/19 15:40 11/08/19 15:40 11/08/19 15:40 Intake & Output 11/07/19 11/08/19 11/09/19 06:59 06:59 06:59 Intake Total 680 150 170 Output Total 0 200 Balance 680 -50 170 Weight 69.9 kg 69.9 kg 69.9 kg General appearance: PRESENT: no acute distress Eye exam: PRESENT: PERRLA Respiratory exam: PRESENT: clear to auscultation debbie Cardiovascular exam: PRESENT: +S1, +S2 Murmur grade: 3 Results Laboratory Results: 11/07/19 13:45 11/07/19 13:45 11/01/19 11/01/19 12:31 15:07 Troponin I 0.021 < 0.012 Impressions: Chest X-Ray 11/01/19 12:57 IMPRESSION: CARDIAC ENLARGEMENT. VASCULAR CONGESTION. Assessment & Plan - Diagnosis (1) Sacral decubitus ulcer, stage III Is this a current diagnosis for this admission?: Yes (2) Polymicrobial bacterial infection Is this a current diagnosis for this admission?: Yes (3) End stage chronic kidney disease Is this a current diagnosis for this admission?: Yes (4) Adult failure to thrive Is this a current diagnosis for this admission?: Yes (5) T2DM (type 2 diabetes mellitus) Qualifiers: Diabetes mellitus fpc insulin use: without long winder tender use Diabetes mellitus complication status: with kidney complications Diabetes mellitus complication detail: with chronic kidney disease Chronic kidney disease stage: on chronic dialysis Qualified Code(s): E11.22 - Type 2 diabetes mellitus with diabetic chronic kidney disease; N18.6 - End stage renal disease; Z99.2 - Dependence on renal dialysis Is this a current diagnosis for this admission?: Yes - Time Time Spent with patient: 15-24 minutes Level of Care: MEDICAL
[2019-11-09 00:10] VITALS: BP 157/63
[2019-11-09] MEDS ORDERED: NORMAL SALINE 1000 ML 1,000 ML IV PRN (05:00)
[2019-11-09] MEDS ORDERED: EPOETIN ALFA-EPBX 30,000 UNIT in SYRINGE, DISPOSABLE, 1 EACH IV PRN (05:00)
[2019-11-09] MEDS: LEVOTHYROXINE SODIUM 0.15 MG TABLET PO SCH (05:25)
[2019-11-09 06:42] LABS: ABSOLUTE EOSINOPHILS # (AUTO) 0.1 10^3/uL (0.0-0.6); ABSOLUTE LYMPHOCYTES (AUTO) 0.9 10^3/uL (0.5-4.7); ABSOLUTE MONOCYTES (AUTO) 0.5 10^3/uL (0.1-1.4); ABSOLUTE NEUT (AUTO) 5.2 10^3/uL (1.7-8.2); BASOPHILS % (AUTO) 0.7 % (0-2); EOSINOPHILS % (AUTO) 2.1 % (0-6); HEMATOCRIT 25.3 % (36.0-47.0); HEMOGLOBIN 8.3 g/dL (12.0-15.5); LYMPHOCYTES % (AUTO) 12.9 % (13-45); MEAN CORPUSCULAR HEMOGLOBIN 33.4 pg (27.0-33.4); MEAN CORPUSCULAR VOLUME 101 fl (80-97); MONOCYTES % (AUTO) 7.6 % (3-13); PLATELET COUNT 316 10^3/uL (150-450); RED CELL DISTRIBUTION WIDTH 24.8 % (11.5-14.0); SEGMENTED NEUTROPHILS % (AUTO) 76.7 % (42-78); TOTAL CELLS COUNTED % (AUTO) 100 %; WHITE BLOOD COUNT 6.8 10^3/uL (4.0-10.5)
[2019-11-09 06:43] LABS: BLOOD UREA NITROGEN 28 mg/dL (7-20); CALCIUM 8.4 mg/dL (8.4-10.2); CARBON DIOXIDE 36 mmol/L (22-30); CHLORIDE 95 mmol/L (98-107); GLUCOSE 150 mg/dL (75-110)
[2019-11-09 06:53] LABS: ANION GAP 1 (5-19)
[2019-11-09 07:22] LABS: ANISOCYTOSIS 3+; OVALOCYTES SLIGHT; PLATELET COMMENT ADEQUATE; POLYCHROMASIA SLIGHT
[2019-11-09] MEDS: ERTAPENEM SODIUM 0.5 GM in NORMAL SALINE 50 ML IV SCH (11:16)
[2019-11-09] MEDS: TRAMADOL HCL 50 MG TABLET PO PRN (11:16)
--- NOTE | 2019-11-09 13:27 | PDOC PROGRESS REPORT ---
Subjective Progress Note for:: 11/09/19 Reason For Visit: Patient seen on dialysis today. Undergoing dialysis without any issues. She is currently on ertapenem for polymicrobial infection of sacral decubitus ulcer which includes ESBL E. coli and anaerobes.Seen denies any history of fever or chills. No complaints of any chest pain shortness of breath. Labs and medications were reviewed. Dialysis orders were reviewed with the treating dialysis nurse. Physical Exam Vital Signs: Temp Pulse Resp BP Pulse Ox 98.6 F 69 18 157/63 H 100 11/08/19 23:58 11/08/19 23:58 11/08/19 23:58 11/08/19 23:58 11/08/19 23:58 Intake & Output 11/08/19 11/09/19 11/10/19 06:59 06:59 06:59 Intake Total 150 270 Output Total 200 Balance -50 270 Weight 69.9 kg 69.5 kg General appearance: PRESENT: no acute distress Respiratory exam: PRESENT: clear to auscultation debbie. ABSENT: crackles Cardiovascular exam: PRESENT: +S1, +S2 GI/Abdominal exam: PRESENT: normal bowel sounds, soft. ABSENT: organomegaly, tenderness Neurological exam: PRESENT: alert, awake, oriented to person Results Laboratory Results: 11/09/19 05:30 11/09/19 05:30 11/09/19 11/09/19 05:30 05:30 WBC 6.8 RBC 2.50 L Hgb 8.3 L Hct 25.3 L MCV 101 H MCH 33.4 MCHC 33.0 RDW 24.8 H Plt Count 316 Seg Neutrophils % 76.7 Sodium 132.3 L Potassium 4.0 Chloride 95 L Carbon Dioxide 36 H Anion Gap 1 L BUN 28 H Creatinine 3.54 H Est GFR ( Amer) 15 L Glucose 150 H Calcium 8.4 11/01/19 11/01/19 12:31 15:07 Troponin I 0.021 < 0.012 Impressions: Chest X-Ray 11/01/19 12:57 IMPRESSION: CARDIAC ENLARGEMENT. VASCULAR CONGESTION. Assessment & Plan - Diagnosis (1) End stage renal disease on dialysis Is this a current diagnosis for this admission?: Yes Plan: Patient seen on dialysis today. Vital signs are stable. Dialysis is being undertaken without any issues. Dialysis being supervised to ensure safe and smooth procedure. Plan to remove a liter of fluid as tolerated. Dialysis orders were reviewed with the treating dialysis nurse. (2) ESBL (extended spectrum beta-lactamase) producing bacteria infection Is this a current diagnosis for this admission?: Yes Plan: Large sacral decubitus ulcers with ESBL E. coli/Proteus/anaerobes. Patient on ertapenem and then be continued as outpatient dialysis at [facility]. (3) Diabetes mellitus type 2 in obese Is this a current diagnosis for this admission?: Yes Plan: As per Dr Henson. (4) Displaced intertrochanteric fracture of right femur, initial encounter for closed fracture Plan: As per Ortho. (5) Hypertension Qualifiers: Hypertension type: essential hypertension Qualified Code(s): I10 - Essential (primary) hypertension Plan: Controlled. (6) Sacral decubitus ulcer, stage III Is this a current diagnosis for this admission?: Yes (7) Anemia in chronic kidney disease Qualifiers: Chronic kidney disease stage: on chronic dialysis Qualified Code(s): N18.6 - End stage renal disease; D63.1 - Anemia in chronic kidney disease; Z99.2 - Dependence on renal dialysis Is this a current diagnosis for this admission?: Yes Plan: Adjust erythropoietin.
== END 2019-11-09 14:48 | DRG 592 ==
LOC: ER 12:18 → EH 14:10 → INTOOBSV 14:10 → OBSVTOIN 14:10 → 4N 15:41
PROVIDERS: ADMIT Internal Medicine; ATTEND Internal Medicine
PROC: 5A1D70Z Performance of Urinary Filtration, Intermittent, Less than 6 Hours Per Day (ICD-10-PCS; principal; 2019-11-02)
DX: L89.153 Pressure ulcer of sacral region, stage 3 (principal); N18.6 End stage renal disease; Z16.12 Extended spectrum beta lactamase (ESBL) resistance; I12.0 Hypertensive chronic kidney disease with stage 5 chronic kidney disease or end stage renal disease; E87.1 Hypo-osmolality and hyponatremia; Z66 Do not resuscitate; R62.7 Adult failure to thrive; E11.22 Type 2 diabetes mellitus with diabetic chronic kidney disease; B96.20 Unspecified Escherichia coli [E. coli] as the cause of diseases classified elsewhere; F03.90 Unspecified dementia, unspecified severity, without behavioral disturbance, psychotic disturbance, mood disturbance, and anxiety; H91.90 Unspecified hearing loss, unspecified ear; I25.10 Atherosclerotic heart disease of native coronary artery without angina pectoris; H54.8 Legal blindness, as defined in USA; E78.5 Hyperlipidemia, unspecified; E03.9 Hypothyroidism, unspecified; D63.1 Anemia in chronic kidney disease; B96.6 Bacteroides fragilis [B. fragilis] as the cause of diseases classified elsewhere; I25.2 Old myocardial infarction; Z03.818 Encounter for observation for suspected exposure to other biological agents ruled out; Z95.5 Presence of coronary angioplasty implant and graft; Z99.2 Dependence on renal dialysis; Z93.1 Gastrostomy status
CPT/HCPCS: 36415; 71045; 80048; 80053; 82962; 83605; 83735; 84484; 85025; 85610; 85730; 87040; 87077; 87150; 87186; 87635; 93005; 93010; 99285; G0378; J1335; J2185; J3490; Q5105